=== PATIENT | female | born 1945 | race Caucasian/White ===

== ENCOUNTER → 2016-07-10 | Day surgery (SDC) | payer MEDICARE, BC ==
[~2016-07-10] MED LIST: ATOR40TA59 PO; BYSTOLIC5 MG PO; CRESTOR10 MG PO; DIAZ5TAB4 PO; FENTANYL PF 100 MCG/2 ML VIAL. IV PRN; HYDR-971 PO; IBUP200C9 PO; IV RINGERS,LACTATED 1000ML 1,000 ML IV SCH; LEVO75TA PO; LIDOCAINE 1% 1 ML SYRINGE. ID PRN; LIDOCAINE 2% PF Vial for OR 5 ML VIAL. ONE; METO-313 PO; METO25TA4 PO; ONDANSETRON PF 4 MG/2 ML VIAL. IV PRN; PANT40TA5 PO; PROCHLORPERAZINE 10 MG/2 ML VIAL. IV PRN; PROPOFOL 0 ML IV ONE; PROPOFOL 20 ML IV ONE; VENL75CA6 PO
[2016-07-10 09:41] VITALS: BP 125/79
--- NOTE | 2016-07-13 15:56 | PATHOLOGY ---
PATHOLOGY REPORT * * * * * * * * FINAL DIAGNOSIS: Colon biopsies, anastomosis stricture/mass: - Polypoid segment of granulation tissue showing acute and chronic inflammation, and segments of colonic mucosa showing focal hyperplastic changes and mild acute inflammation. COMMENT: Sections of the anastomotic stricture/mass biopsy reveal segments of colonic mucosa and a polypoid segment of granulation tissue showing acute and chronic inflammation. The segments of colonic mucosa show focal hyperplastic changes, edema, and mild acute inflammation. There is no evidence of malignancy. (JPM:; d/t: 07/13/16) REPORT ELECTRONICALLY SIGNED BY: Dave Pfeiffer M.D. DATE/TIME: 07/13/2016 15:34 * * * * * * * * GROSS PATHOLOGY: Received in formalin labeled "Lena Kelley and anastomotic stricture mass bx," are 6 segments of wheeler soft tissue measuring 1.4 x 0.3 x 0.2 and cm in aggregate dimensions and ranging from 0.2 to 0.5 cm in maximum dimension. The specimen is submitted entirely in cassette A1. (TTL; 07/10/2016) INITIAL CPT CODE(S): A; 61565 Professional services performed [place] [facility] [place] [address] Technical services performed by [facility] at [address] [place] [address], [facility] [address], [place] [address]. SPECIMEN(S) RECEIVED: A.Anastomotic stricture/mass biopsy CLINICAL HISTORY: Colon cancer PATIENT: LENA KELLEY /AGE: 9 1945 (Age: 71) PATIENT #: [id number] ALT CASE #: SPECIMEN COLLECTION DATE: 07/10/2016 SPECIMEN RECEIVED DATE: 07/10/2016 [facility] - [address] [place] [address] - PHONE: [phone] * * * END OF REPORT * * *
== END | disposition home or self-care (01) ==
LOC: ENDOS 07:56
PROVIDERS: ATTEND Internal Medicine Gastroenterology
DX: Z12.11 Encounter for screening for malignant neoplasm of colon (principal); K64.0 First degree hemorrhoids; Z98.0 Intestinal bypass and anastomosis status; Z85.038 Personal history of other malignant neoplasm of large intestine; K91.89 Other postprocedural complications and disorders of digestive system; R56.9 Unspecified convulsions; E78.00 Pure hypercholesterolemia, unspecified; I10 Essential (primary) hypertension; E66.9 Obesity, unspecified; K21.9 Gastro-esophageal reflux disease without esophagitis; Z90.721 Acquired absence of ovaries, unilateral; E03.9 Hypothyroidism, unspecified; F41.9 Anxiety disorder, unspecified; F32.9 Major depressive disorder, single episode, unspecified; F10.99 Alcohol use, unspecified with unspecified alcohol-induced disorder
CPT/HCPCS: 45380; 88305; J2704

== ENCOUNTER 2016-10-19 05:56 | Day surgery (SDC) | payer MEDICARE, BC ==
[~2016-10-19] VITALS: Ht 154.9 cm; Wt 71.4 kg
[~2016-10-19 05:56] MED LIST changes: -FENTANYL PF 100 MCG/2 ML VIAL. IV PRN; -IV RINGERS,LACTATED 1000ML 1,000 ML IV SCH; -LIDOCAINE 1% 1 ML SYRINGE. ID PRN; -LIDOCAINE 2% PF Vial for OR 5 ML VIAL. ONE; -ONDANSETRON PF 4 MG/2 ML VIAL. IV PRN; -PROCHLORPERAZINE 10 MG/2 ML VIAL. IV PRN; -PROPOFOL 0 ML IV ONE; -PROPOFOL 20 ML IV ONE
[2016-10-19] MEDS ORDERED: CEFAZOLIN 2GM PREMIX 50 ML IV PRN (06:00)
[2016-10-19] MEDS ORDERED: ACETAMINOPHEN INTRAVENOUS 100 ML IV ONE ×2 (06:16→07:00)
[2016-10-19] MEDS ORDERED: ONDANSETRON PF 4 MG/2 ML VIAL. ONE (06:56)
[2016-10-19] MEDS ORDERED: PROPOFOL 20 ML IV ONE (06:56)
[2016-10-19] MEDS ORDERED: LIDOCAINE 2% 100 MG/5 ML SYRINGE. ONE (06:56)
[2016-10-19] MEDS ORDERED: FENTANYL PF 100 MCG/2 ML VIAL. IV PRN ×3 (07:00→10:15)
[2016-10-19] MEDS ORDERED: LIDOCAINE 1% 1 ML SYRINGE. ID PRN (07:00)
[2016-10-19] MEDS ORDERED: MIDAZOLAM HCL/PF 2 MG/2 ML VIAL. IV PRN (07:00)
[2016-10-19] MEDS ORDERED: IV RINGERS,LACTATED 1000ML 1,000 ML IV SCH (07:00)
[2016-10-19] MEDS ORDERED: FENTANYL PF 100 MCG/2 ML VIAL. ONE (07:11)
[2016-10-19] MEDS ORDERED: DEXAMETHASONE SOD PHOS 20 MG/5 ML VIAL. ONE (07:17)
[2016-10-19] MEDS ORDERED: DESFLURANE 61 TO 120 MINUTES IH ONE (07:17)
[2016-10-19] MEDS ORDERED: HEPARIN for IV BOLUS 10,000 UNIT/10 ML VIAL. ONE (07:18)
[2016-10-19] MEDS ORDERED: HEPARIN PF 500 UNIT/5 ML DISP.SYRIN. IV ONE (07:18)
[2016-10-19] MEDS ORDERED: BUPIVACAINE MPF 0.25% 30 ML VIAL. ONE (07:19)
--- NOTE | 2016-10-19 08:18 | PDOC ---
BRIEF OPERATIVE NOTE Date: Oct 19, 2016 Pre-Op Diagnosis Colon cancer Post-Op Diagnosis Same Procedure Performed Port-a-cath placement left subclavin Surgeon Addison Anesthesia Type: General Blood Loss 10ml Specimens Obtained None Complications None ERIC DORAN MD Oct 19, 2016 08:18
--- NOTE | 2016-10-19 08:19 | DISCH ---
DISCHARGE INSTRUCTIONS Condition on Discharge Condition on Discharge: Stable Activity After Discharge Activity Instructions for Disc: Activity as tolerated Other activity instructions: No lifting left arm above head for 1 week Diet after Discharge Diet after Discharge: Regular Wound Incision Care Other wound/incision instructi: May shower in 24 hours Contacting the after DC Call your doctor for: If your condition worsens Follow-Up Follow up with: Dr Doran in 2 weeks ERIC DORAN MD Oct 19, 2016 08:19
--- NOTE | 2016-10-19 08:44 | RAD ---
Portable chest, 10/19/2016: History: Postop Port-A-Cath insertion Comparison is made to a study from 10/08/2015. A left Port-A-Cath has been inserted extending into the superior vena cava. The heart size and pulmonary vascularity are normal. There is tortuosity of the thoracic aorta. There is mild discoid atelectasis in both lung bases. No pneumothorax or pleural fluid is evident. IMPRESSION: 1. The left Port-A-Cath extends into the superior vena cava. 2. Mild bibasilar discoid atelectasis.
[2016-10-19] MEDS ORDERED: HYDR-971 PO (08:47)
[2016-10-19] MEDS ORDERED: HYDROCODONE/APAP 5/325MG TABLET. PO PRN (09:00)
[2016-10-19 09:30] VITALS: BP 101/56
--- NOTE | 2016-10-19 13:25 | OP ---
DATE OF SURGERY: 10/19/2016 PREOPERATIVE DIAGNOSIS: Metastatic colon cancer. POSTOPERATIVE DIAGNOSIS: Metastatic colon cancer. PROCEDURE: Left-sided Port-A-Cath placement. SURGEON: Bear Doran M.D. INDICATIONS: The patient is a 71-year-old female who is going to undergo chemotherapy technician terminal and repeater for metastatic colon cancer. Procedure of Port-A-Cath placement was explained to the patient in detail. Risks and benefits were also discussed including bleeding, infection, injury to pleura causing pneumothorax. Alternatives of this procedure were also discussed with the patient who seemed to understand and gave verbal and written consent to have the procedure performed. DESCRIPTION OF PROCEDURE: The patient was taken to the operating room and placed in the supine position. General anesthesia was initiated. Once the patient was asleep and intubated, her chest and neck were prepped and draped in sterile fashion using ChloraPrep. An area in the deltopectoral groove was injected with 0.25% Marcaine. An incision was made with 10 blade scalpel, was carried down through the subcutaneous tissue using electrocautery for hemostasis down to the deltopectoral groove. This was explored. The cephalic vein was not visualized. At this point, the subclavian was accessed with ____ needle and a Seldinger wire was placed through this needle and the needle was removed. Under fluoroscopy showed the wire transversed into the superior vena cava at the atrial junction. At this point, a peel-away dilator was placed over the wire under direct visualization. The dilator and wire removed. The catheter was placed through the peel-away. The peel-away was then removed and the port was placed on the end of the catheter. Fluoroscopy was used showed that the tip of the catheter was at the confluence of the atrium and the superior vena cava. The port was then sewn into place with 3-0 Prolene single interrupted sutures. The port was accessed with Diaz needle. There was good blood return and was easily flushed with heparin saline solution. The wound was then closed in two layers, deep layer with running 3-0 Vicryl and the skin was reapproximated with 4-0 subcuticular Monocryl. The port was then accessed, again with Diaz needle and flushed with 3 mL of 1000 per unit of heparin per mL as a hep-lock. Mastisol, Steri-Strips and island dressing were applied. The patient was awakened, extubated in the operating room, taken to recovery in stable condition. All sponge, instrument counts listed as correct. Estimated blood loss 10 mL. BEAR DORAN MD DR: VÍCTOR/dione JOB#: [id number] / [id number] DANIEL Perez MD
== END 2016-10-19 09:48 | disposition home or self-care (01) ==
LOC: SURG 05:56
PROVIDERS: ATTEND Surgery
DX: C78.5 Secondary malignant neoplasm of large intestine and rectum (principal); E78.00 Pure hypercholesterolemia, unspecified; I10 Essential (primary) hypertension; E66.9 Obesity, unspecified; K21.9 Gastro-esophageal reflux disease without esophagitis; F41.9 Anxiety disorder, unspecified; F32.9 Major depressive disorder, single episode, unspecified; E03.9 Hypothyroidism, unspecified; Z90.710 Acquired absence of both cervix and uterus; Z72.89 Other problems related to lifestyle
CPT/HCPCS: 36561; 71010; A4215; J0131; J0690; J1100; J2405; J2704; J3010; J3490; 36556

== ENCOUNTER 2016-12-05 14:34 | Emergency (ER) | payer MEDICARE, BC ==
[~2016-12-05] VITALS: Ht 154.9 cm; Wt 71.2 kg
[2016-12-05 14:58] VITALS: BP 139/74
[2016-12-05] MEDS ORDERED: BACITRACIN TOPICAL OINT 14GM TUBE. TP ONE (15:15)
--- NOTE | 2016-12-05 16:17 | ED.ADGEN ---
Past Medical History Past Medical History: Anxiety, Cancer, GERD, High Cholesterol, Hypothyroid Past Surgical History: Cancer Surgery, Colectomy, Tonsillectomy Drug Use: None Adult General Chief Complaint Chief Complaint: OTHER COMPLAINTS HPI HPI Patient is a 71 year old who presents with concern for a abdominal wall incision infection. Patient is status post hysterectomy, colectomy with colostomy placement at [facility] 3 months ago with delayed incisional breakdown and concern for infection. Patient has a less than 2 cm area of superficial ulcer or skin infection over scar. There is no clear drainage that is no appreciated surrounding erythema induration or drainage. She was prescribed Augmentin for this I or general surgeon, but she is been unable to take due to nausea which she only experiences when taking the medication. She does not have any other acute symptoms or complaints. Review of Systems Review of Systems ROS as per HPI. Current Medications Current Medications Current Medications Medications (Trade) Dose Ordered Sig/Fannie Start Time Stop Time Status Last Admin Dose Admin Bacitracin 1 slime 1X ONCE 12/05/16 15:15 12/05/16 15:16 DC 12/05/16 15:24 1 SLIME Allergies Allergies Allergies Coded Allergies Type Severity Reaction Last Updated Verified codeine Adverse Reaction Intermediate Patient states hallucinations 10/19/16 Yes Physical Exam Physical Exam Constitutional: Well developed, well nourished, no acute distress, non-toxic appearance. HENT: Normocephalic, atraumatic, bilateral external ears normal, oropharynx moist, no oral exudates, nose normal. Eyes: PERRLA, EOMI, conjunctiva normal. Neck: Normal range of motion, no tenderness, supple, no stridor. Cardiovascular:Heart rate regular rhythm, no murmur. Lungs & Thorax: Bilateral breath sounds clear to auscultation. Abdomen: Bowel sounds normal, soft, midline surgical scar with small 2 cm area of incision breakdown clear drainage, no surrounding erythema, duration or drainage. Skin: Warm, dry, no erythema, no rash. Back: No tenderness. Extremities: No tenderness. Neurologic: Alert and oriented X 3, normal motor function, normal sensory function, no focal deficits noted. Psychologic: Affect normal, judgement normal, mood normal. Current Patient Data Vital Signs Vital Signs Date Time Temp Pulse Resp B/P (MAP) Pulse Ox O2 Delivery O2 Flow Rate FiO2 12/05/16 14:58 97.0 69 18 139/74 (95) 97 Room Air 97.0 EKG EKG [] Radiology/Procedures Radiology/Procedures [] Course & Med Decision Making Course & Med Decision Making Pertinent Labs and Imaging studies reviewed. (See chart for details) [Patient reassured. Will discontinue Augmentin and prescribed topical antibiotics with instructions to apply as directed and to follow-up with general surgeon in one week for reevaluation or sooner if symptoms worsen. Return precautions reviewed.] Dragon Disclaimer Dragon Disclaimer This electronic medical record was generated, in whole or in part, using a voice recognition dictation system. JOSEY BARNETT DO Dec 05, 2016 16:17
== END 2016-12-05 16:21 | disposition home or self-care (01) ==
LOC: ER 14:34
DX: T81.4XXA Infection following a procedure, initial encounter (principal); F41.9 Anxiety disorder, unspecified; K21.9 Gastro-esophageal reflux disease without esophagitis; E78.00 Pure hypercholesterolemia, unspecified; E03.9 Hypothyroidism, unspecified; Z90.710 Acquired absence of both cervix and uterus; Z88.5 Allergy status to narcotic agent; Z90.49 Acquired absence of other specified parts of digestive tract; Y83.8 Other surgical procedures as the cause of abnormal reaction of the patient, or of later complication, without mention of misadventure at the time of the procedure; Y92.89 Other specified places as the place of occurrence of the external cause
CPT/HCPCS: 99283

== ENCOUNTER 2017-05-05 16:48 | Inpatient (IN) | payer MEDICARE, BC ==
[~2017-05-05] VITALS: Ht 154.9 cm; Wt 67.1 kg
[~2017-05-05 16:48] MED LIST changes: +MAGNESIUM SULFATE PREMIX 1 GM/100 ML BAG. IV ONE
[2017-05-05] MEDS ORDERED: ONDA4TAB11 PO (17:50)
[2017-05-05] MEDS ORDERED: LEVO500T8 PO (17:50)
[2017-05-05] MEDS ORDERED: TRAM50TA PO (17:50)
[2017-05-05] MEDS ORDERED: VANCOMYCIN 1.75 GM in IV DEXTROSE 5% 500 ML IV ONE (18:30)
[2017-05-05 18:37] LABS: BASO % 1 % (0-3); EOS % 0 % (0-3); HEMATOCRIT 39.5 % (36.0-47.0); HEMOGLOBIN 13.2 g/dL (12.0-15.5); LYMPH # 0.8 x10^3/uL (1.0-4.8); LYMPH % 24 % (24-48); MEAN CORPUSCULAR HEMOGLOBIN 33 pg (25-35); MEAN CORPUSCULAR HGB CONC 33 g/dL (31-37); MEAN CORPUSCULAR VOLUME 99 fL (79-100); MONO % 11 % (0-9); NEUT % 65 % (31-73); PLATELET COUNT 40 x10^3/uL (140-400); RED CELL DISTRIBUTION WIDTH 21.1 % (11.5-14.5); WHITE BLOOD COUNT 3.2 x10^3/uL (4.0-11.0)
[2017-05-05 18:38] VITALS: BP 120/83
[2017-05-05 18:46] LABS: ALBUMIN 3.3 g/dL (3.4-5.0); ALBUMIN/GLOBULIN RATIO 0.7 (1.0-1.7); CALCIUM 8.8 mg/dL (8.5-10.1); CREATININE 1.7 mg/dL (0.6-1.0); GFR 29.4; POTASSIUM 3.6 mmol/L (3.5-5.1); TOTAL BILIRUBIN 0.6 mg/dL (0.2-1.0); TOTAL PROTEIN 8.2 g/dL (6.4-8.2)
[2017-05-05 19:00] VITALS: BP 136/90
[2017-05-05] MEDS: cefTRIAXone IV Push 1 GM VIAL. IVP SCH (19:20)
[2017-05-05] MEDS: IV NORMAL SALINE 1000ML BAG 1,000 ML IV SCH (19:21)
[2017-05-05] MEDS: VANCOMYCIN PER PHARMACY MC PRN (19:31)
[2017-05-05 20:21] LABS: ANISOCYTOSIS MOD; OVALOCYTES FEW; PLT ESTIMATE DECREASED (ADEQUATE)
[2017-05-05] MEDS: diazePAM 5 MG TABLET PO SCH (20:58)
[2017-05-05] MEDS: METOPROLOL TART IMMED RELEASE 25 MG TABLET. PO SCH (20:59)
[2017-05-05 21:26] VITALS: BP 136/90
[2017-05-05 23:00] VITALS: BP 136/85
[2017-05-06 00:51] LABS: BILIRUBIN,URINE NEGATIVE (NEG); GLUCOSE,URINE NEGATIVE (NEG); NITRITE,URINE NEGATIVE (NEG); PROTEIN,URINE 100 mg/dL (NEG-TRACE); UROBILINOGEN,URINE 0.2 mg/dL (0.2 mg/dL)
[2017-05-06 00:56] LABS: BACTERIA,URINE FEW /HPF (0-FEW); RBC,URINE OCC /HPF (0-2); SQUAMOUS EPITHELIAL CELL,UR MOD /LPF; WBC,URINE 20-40 /HPF (0-4)
[2017-05-06 03:06] VITALS: BP 123/77
[2017-05-06 07:30] VITALS: BP 113/75
[2017-05-06] MEDS: LEVOTHYROXINE 75 MCG TABLET PO SCH (07:46)
--- NOTE | 2017-05-06 07:55 | RAD ---
Portable AP upright view CXR: Clinical indications: Bronchitis. Shortness of air. Comparison: October 19, 2016. Findings: A left subclavian Port-A-Cath is unchanged in position. No acute lung infiltrate or pleural effusion or pulmonary edema or lung mass or pneumothorax is seen. The heart size, pulmonary vasculature, mediastinum and both joy are unremarkable. Impression: No acute radiographic abnormality is seen.
--- NOTE | 2017-05-06 08:50 | PDOC ---
GENERAL General: vss and afebrile. awake and alert and looks better than yesterday. ongoing cough with clear cxr. leukopenia and thrombocytopenia from chemo. probable uti on ua results and little burning with urination yesterday. still profoundly weak. chest clear, heart regular, and abdomen benign. herpetic eruption upper lip and acyclovir added. will ask for pulmonary, oncology, and ID help. Problems: VITAL SIGNS Vital Signs: Vital Signs Date Time Temp Pulse Resp B/P (MAP) Pulse Ox O2 Delivery O2 Flow Rate FiO2 05/06/17 07:30 96.9 63 18 113/75 (88) 95 Room Air 96.9 ALLERGIES Allergies: Allergies Coded Allergies Type Severity Reaction Last Updated Verified codeine Adverse Reaction Intermediate Patient states hallucinations 10/19/16 Yes MEDS Medications: Current Medications Medications (Trade) Dose Ordered Sig/Fannie Start Time Stop Time Status Last Admin Dose Admin Atorvastatin Calcium (Lipitor) 40 mg DAILY 05/06/17 09:00 Ceftriaxone Sodium 1 gm/ Dextrose 50 ml @ 100 mls/hr Q24H 05/05/17 18:00 UNV Ceftriaxone Sodium (Rocephin) 1 gm Q24H 05/05/17 18:00 05/05/17 19:20 1 GM Diazepam (Valium) 5 mg TID 05/05/17 21:00 05/05/17 20:58 5 MG Levothyroxine Sodium (Synthroid) 75 mcg DAILYAC 05/06/17 07:30 05/06/17 07:46 75 MCG Metoprolol Tartrate (Lopressor) 25 mg BID 05/05/17 21:00 05/05/17 20:59 25 MG Ondansetron HCl (Zofran Odt) 8 mg PRN Q12HRS PRN 05/05/17 18:30 Pantoprazole Sodium (Protonix) 40 mg DAILY 05/06/17 09:00 Sodium Chloride 1,000 ml @ 75 mls/hr [id number] 05/05/17 18:15 05/05/17 19:21 75 MLS/HR Tramadol HCl (Ultram) 50 mg PRN Q6HRS PRN 05/05/17 18:15 Vancomycin HCl 1 each 1X ONCE 05/07/17 19:00 05/07/17 19:01 Vancomycin HCl (Vanco Per Pharmacy) 1 each PRN DAILY PRN 05/05/17 18:00 05/05/17 19:31 1 EACH Vancomycin HCl 1.75 gm/Dextrose 500 ml @ 250 mls/hr 1X ONCE 05/05/17 18:30 05/05/17 20:29 DC 05/05/17 19:21 250 MLS/HR Vancomycin HCl 1 gm/Dextrose 250 ml @ 250 mls/hr Q24H 05/06/17 19:30 Venlafaxine HCl (Effexor Xr) 75 mg DAILY 05/06/17 09:00 LAB Lab: Laboratory Tests Test 05/05/17 18:22 05/06/17 00:40 White Blood Count 3.2 x10^3/uL (4.0-11.0) Red Blood Count 4.00 x10^6/uL (3.50-5.40) Hemoglobin 13.2 g/dL (12.0-15.5) Hematocrit 39.5 % (36.0-47.0) Mean Corpuscular Volume 99 fL (79-100) Mean Corpuscular Hemoglobin 33 pg (25-35) Mean Corpuscular Hemoglobin Concent 33 g/dL (31-37) Red Cell Distribution Width 21.1 % (11.5-14.5) Platelet Count 40 x10^3/uL (140-400) Neutrophils (%) (Auto) 65 % (31-73) Lymphocytes (%) (Auto) 24 % (24-48) Monocytes (%) (Auto) 11 % (0-9) Eosinophils (%) (Auto) 0 % (0-3) Basophils (%) (Auto) 1 % (0-3) Neutrophils # (Auto) 2.0 x10^3uL (1.8-7.7) Lymphocytes # (Auto) 0.8 x10^3/uL (1.0-4.8) Monocytes # (Auto) 0.3 x10^3/uL (0.0-1.1) Eosinophils # (Auto) 0.0 x10^3/uL (0.0-0.7) Basophils # (Auto) 0.0 x10^3/uL (0.0-0.2) Platelet Estimate Decreased (ADEQUATE) Anisocytosis Mod Ovalocytes Few Sodium Level 133 mmol/L (136-145) Potassium Level 3.6 mmol/L (3.5-5.1) Chloride Level 97 mmol/L (98-107) Carbon Dioxide Level 23 mmol/L (21-32) Anion Gap 13 (6-14) Blood Urea Nitrogen 46 mg/dL (7-20) Creatinine 1.7 mg/dL (0.6-1.0) Estimated GFR (Cockcroft-Gault) 29.4 BUN/Creatinine Ratio 27 (6-20) Glucose Level 121 mg/dL (70-99) Calcium Level 8.8 mg/dL (8.5-10.1) Total Bilirubin 0.6 mg/dL (0.2-1.0) Aspartate Amino Transf (AST/SGOT) 31 U/L (15-37) Alanine Aminotransferase (ALT/SGPT) 15 U/L (14-59) Alkaline Phosphatase 88 U/L (46-116) Total Protein 8.2 g/dL (6.4-8.2) Albumin 3.3 g/dL (3.4-5.0) Albumin/Globulin Ratio 0.7 (1.0-1.7) Urine Collection Type Unknown Urine Color Yellow Urine Clarity Clear Urine pH 6.0 Urine Specific [place] 1.025 Urine Protein 100 mg/dL (NEG-TRACE) Urine Glucose (UA) Negative mg/dL (NEG) Urine Ketones (Stick) Negative mg/dL (NEG) Urine Blood Negative (NEG) Urine Nitrite Negative (NEG) Urine Bilirubin Negative (NEG) Urine Urobilinogen Dipstick 0.2 mg/dL (0.2 mg/dL) Urine Leukocyte Esterase Moderate (NEG) Urine RBC Occ /HPF (0-2) Urine WBC 20-40 /HPF (0-4) Urine Squamous Epithelial Cells Mod /LPF Urine Amorphous Sediment Present /HPF Urine Bacteria Few /HPF (0-FEW) Urine Hyaline Casts Moderate /HPF Urine Granular Casts Few /HPF Urine Mucus Mod /LPF ZACK LOPEZ MD May 06, 2017 08:50
[2017-05-06] MEDS: ACYCLOVIR 200 MG CAPSULE. PO SCH ×3 (09:51→21:06)
[2017-05-06] MEDS: PANTOPRAZOLE 40 MG TABLET.DR. PO SCH (09:52)
[2017-05-06] MEDS: METOPROLOL TART IMMED RELEASE 25 MG TABLET. PO SCH ×2 (09:52→21:07)
[2017-05-06] MEDS: VENLAFAXINE XR 37.5 MG CAP.ER.24H. PO SCH (09:52)
[2017-05-06] MEDS: diazePAM 5 MG TABLET PO SCH ×3 (09:52→21:06)
[2017-05-06] MEDS: ATORVASTATIN CALCIUM 40 MG TABLET. PO SCH (09:52)
[2017-05-06 10:30] VITALS: BP 118/68
[2017-05-06] MEDS: IV NORMAL SALINE 1000ML BAG 1,000 ML IV SCH ×2 (12:34→21:09)
[2017-05-06] MEDS: VANCOMYCIN PER PHARMACY MC PRN (12:53)
--- NOTE | 2017-05-06 13:22 | PDOC ---
Provider Note Provider Note pt seen consult dictated [id number] IMP: UTI TANNER Mucositis colon ca on ct Neutropenia and thrombocytopenia bronchitis REC: DC IV Vanc continue empiric rocephin start doxycycline po continue acyclovir oral care f/u c/s and labs PAT JOHN MD May 06, 2017 13:22
[2017-05-06] MEDS: DOXYCYCLINE HYCLATE 100 MG TABLET PO SCH ×2 (14:15→21:06)
[2017-05-06 15:00] VITALS: BP 118/68
--- NOTE | 2017-05-06 18:11 | PDOC ---
PULMONARY PROGRESS NOTES Vitals Vital Signs Date Time Temp Pulse Resp B/P (MAP) Pulse Ox O2 Delivery O2 Flow Rate FiO2 05/06/17 15:00 96.6 60 60 118/68 (85) 94 Room Air 96.6 Labs Laboratory Tests Test 05/05/17 18:22 05/06/17 00:40 White Blood Count 3.2 x10^3/uL (4.0-11.0) Red Blood Count 4.00 x10^6/uL (3.50-5.40) Hemoglobin 13.2 g/dL (12.0-15.5) Hematocrit 39.5 % (36.0-47.0) Mean Corpuscular Volume 99 fL (79-100) Mean Corpuscular Hemoglobin 33 pg (25-35) Mean Corpuscular Hemoglobin Concent 33 g/dL (31-37) Red Cell Distribution Width 21.1 % (11.5-14.5) Platelet Count 40 x10^3/uL (140-400) Neutrophils (%) (Auto) 65 % (31-73) Lymphocytes (%) (Auto) 24 % (24-48) Monocytes (%) (Auto) 11 % (0-9) Eosinophils (%) (Auto) 0 % (0-3) Basophils (%) (Auto) 1 % (0-3) Neutrophils # (Auto) 2.0 x10^3uL (1.8-7.7) Lymphocytes # (Auto) 0.8 x10^3/uL (1.0-4.8) Monocytes # (Auto) 0.3 x10^3/uL (0.0-1.1) Eosinophils # (Auto) 0.0 x10^3/uL (0.0-0.7) Basophils # (Auto) 0.0 x10^3/uL (0.0-0.2) Platelet Estimate Decreased (ADEQUATE) Anisocytosis Mod Ovalocytes Few Sodium Level 133 mmol/L (136-145) Potassium Level 3.6 mmol/L (3.5-5.1) Chloride Level 97 mmol/L (98-107) Carbon Dioxide Level 23 mmol/L (21-32) Anion Gap 13 (6-14) Blood Urea Nitrogen 46 mg/dL (7-20) Creatinine 1.7 mg/dL (0.6-1.0) Estimated GFR (Cockcroft-Gault) 29.4 BUN/Creatinine Ratio 27 (6-20) Glucose Level 121 mg/dL (70-99) Calcium Level 8.8 mg/dL (8.5-10.1) Total Bilirubin 0.6 mg/dL (0.2-1.0) Aspartate Amino Transf (AST/SGOT) 31 U/L (15-37) Alanine Aminotransferase (ALT/SGPT) 15 U/L (14-59) Alkaline Phosphatase 88 U/L (46-116) Total Protein 8.2 g/dL (6.4-8.2) Albumin 3.3 g/dL (3.4-5.0) Albumin/Globulin Ratio 0.7 (1.0-1.7) Urine Collection Type Unknown Urine Color Yellow Urine Clarity Clear Urine pH 6.0 Urine Specific [place] 1.025 Urine Protein 100 mg/dL (NEG-TRACE) Urine Glucose (UA) Negative mg/dL (NEG) Urine Ketones (Stick) Negative mg/dL (NEG) Urine Blood Negative (NEG) Urine Nitrite Negative (NEG) Urine Bilirubin Negative (NEG) Urine Urobilinogen Dipstick 0.2 mg/dL (0.2 mg/dL) Urine Leukocyte Esterase Moderate (NEG) Urine RBC Occ /HPF (0-2) Urine WBC 20-40 /HPF (0-4) Urine Squamous Epithelial Cells Mod /LPF Urine Amorphous Sediment Present /HPF Urine Bacteria Few /HPF (0-FEW) Urine Hyaline Casts Moderate /HPF Urine Granular Casts Few /HPF Urine Mucus Mod /LPF Laboratory Tests Test 05/05/17 18:22 05/06/17 00:40 White Blood Count 3.2 x10^3/uL (4.0-11.0) Red Blood Count 4.00 x10^6/uL (3.50-5.40) Hemoglobin 13.2 g/dL (12.0-15.5) Hematocrit 39.5 % (36.0-47.0) Mean Corpuscular Volume 99 fL (79-100) Mean Corpuscular Hemoglobin 33 pg (25-35) Mean Corpuscular Hemoglobin Concent 33 g/dL (31-37) Red Cell Distribution Width 21.1 % (11.5-14.5) Platelet Count 40 x10^3/uL (140-400) Neutrophils (%) (Auto) 65 % (31-73) Lymphocytes (%) (Auto) 24 % (24-48) Monocytes (%) (Auto) 11 % (0-9) Eosinophils (%) (Auto) 0 % (0-3) Basophils (%) (Auto) 1 % (0-3) Neutrophils # (Auto) 2.0 x10^3uL (1.8-7.7) Lymphocytes # (Auto) 0.8 x10^3/uL (1.0-4.8) Monocytes # (Auto) 0.3 x10^3/uL (0.0-1.1) Eosinophils # (Auto) 0.0 x10^3/uL (0.0-0.7) Basophils # (Auto) 0.0 x10^3/uL (0.0-0.2) Platelet Estimate Decreased (ADEQUATE) Anisocytosis Mod Ovalocytes Few Sodium Level 133 mmol/L (136-145) Potassium Level 3.6 mmol/L (3.5-5.1) Chloride Level 97 mmol/L (98-107) Carbon Dioxide Level 23 mmol/L (21-32) Anion Gap 13 (6-14) Blood Urea Nitrogen 46 mg/dL (7-20) Creatinine 1.7 mg/dL (0.6-1.0) Estimated GFR (Cockcroft-Gault) 29.4 BUN/Creatinine Ratio 27 (6-20) Glucose Level 121 mg/dL (70-99) Calcium Level 8.8 mg/dL (8.5-10.1) Total Bilirubin 0.6 mg/dL (0.2-1.0) Aspartate Amino Transf (AST/SGOT) 31 U/L (15-37) Alanine Aminotransferase (ALT/SGPT) 15 U/L (14-59) Alkaline Phosphatase 88 U/L (46-116) Total Protein 8.2 g/dL (6.4-8.2) Albumin 3.3 g/dL (3.4-5.0) Albumin/Globulin Ratio 0.7 (1.0-1.7) Urine Collection Type Unknown Urine Color Yellow Urine Clarity Clear Urine pH 6.0 Urine Specific [place] 1.025 Urine Protein 100 mg/dL (NEG-TRACE) Urine Glucose (UA) Negative mg/dL (NEG) Urine Ketones (Stick) Negative mg/dL (NEG) Urine Blood Negative (NEG) Urine Nitrite Negative (NEG) Urine Bilirubin Negative (NEG) Urine Urobilinogen Dipstick 0.2 mg/dL (0.2 mg/dL) Urine Leukocyte Esterase Moderate (NEG) Urine RBC Occ /HPF (0-2) Urine WBC 20-40 /HPF (0-4) Urine Squamous Epithelial Cells Mod /LPF Urine Amorphous Sediment Present /HPF Urine Bacteria Few /HPF (0-FEW) Urine Hyaline Casts Moderate /HPF Urine Granular Casts Few /HPF Urine Mucus Mod /LPF Medications Active Scripts Medications Dose Route/Sig Max Daily Dose Days Date Category Levofloxacin 500 Mg Tablet 500 Mg PO DAILY 05/05/17 Reported Tramadol Hcl 50 Mg Tablet 50 Mg PO Q6H PRN 05/05/17 Reported Ondansetron Hcl 4 Mg Tablet 8 Mg PO BID PRN 05/05/17 Reported Thornton 5-325 Tablet (Acetaminophen/Hydrocodone Bitart) 1 Each Tablet 1-2 Tab PO Q4HRS PRN 10/19/16 Reported Atorvastatin Calcium 40 Mg Tablet 1 Tab PO DAILY 10/18/15 Reported Metoprolol Tartrate 25 Mg Tablet 1 Tab PO BID 10/18/15 Reported Pantoprazole Sodium 40 Mg Tablet.dr 1 Tab PO DAILY 04/26/15 Reported Diazepam 5 Mg Tablet 5 Mg PO TID 03/07/15 Reported Venlafaxine Hcl Er (Venlafaxine Hcl) 75 Mg Cap.er.24h 75 Mg PO DAILY 03/07/15 Reported Synthroid (Levothyroxine Sodium) 75 Mcg Tablet 75 Mcg PO DAILYAC 03/07/15 Reported Impression . CLINICAL PNEUMONIA COLON CA ACUTE BRONCHITIS PLAN AGREE WITH CURRENT RX JEFF FISCHER MD May 06, 2017 18:11
[2017-05-06] MEDS: cefTRIAXone IV Push 1 GM VIAL. IVP SCH (18:12)
[2017-05-06 19:00] VITALS: BP 102/99
[2017-05-06] MEDS ORDERED: VANCOMYCIN 1 GM in IV DEXTROSE 5% 250 ML IV SCH (19:30)
[2017-05-06] MEDS: ONDANSETRON ODT 4 MG TAB.RAPDIS. PO PRN (22:40)
[2017-05-06 22:49] VITALS: BP 113/69
[2017-05-07] VITALS (7 sets, daily range): BP systolic 104–128; BP diastolic 58–75
--- NOTE | 2017-05-07 01:18 | CONS ---
DATE OF CONSULTATION: 05/06/2017 REFERRING PHYSICIAN: Dr. Abebe Aldridge REASON FOR CONSULTATION: Weakness, bronchitis/pna HISTORY OF PRESENT ILLNESS: A 72-year-old female with history of colon cancer, on chemotherapy with leukopenia and thrombocytopenia from chemo, admitted with complaints of weakness, dysuria, not feeling well, oral sores, difficulty swallowing, low grade fever and chills, sob and cough. The patient was started on empriic IV vancomycin and Rocephin. White count was 3.2 with hemoglobin of 13.2 and platelets of 40. Creatinine is up at 1.7. UA showed leukocyte esterase positive, moderate with a 20-40 WBC. The patient underwent chest x-ray, which showed no infiltrate. ROS as above has trouble swallowing,oral sores, heent as above resp as above cardiac neg gi as above,no n/v/d/abdo pain gu as above derm no gen rash neuro neg PAST MEDICAL HISTORY: 1. Colon cancer, status post surgery, on ostomy, on chemo since 10/2016. 2. Neutropenia from above. 3. Thrombocytopenia from above. 4. Hyperlipidemia. 5. Hypothyroidism, on supplements. 6. Hypertension. 7. GERD. 8. Chronic pain. PAST SURGICAL HISTORY: Status post colon surgery. ALLERGIES: CODEINE. CURRENT MEDICATIONS: Antibiotics, IV vancomycin, IV ceftriaxone, p.o. acyclovir. Inpatient medications reviewed. SOCIAL HISTORY: Denies smoking, EtOH, or illicit drug use. REVIEW OF SYSTEMS: As above, otherwise negative. PHYSICAL EXAMINATION: VITAL SIGNS: Temperature 96.3, pulse 74, respiratory rate 18, blood pressure 136/90, oxygen saturation 97% on room air. GENERAL: Alert, oriented x 3 female, cooperative, in no acute distress. HEENT: Cold sore lower lips, dry scab present. Oral mucosa is dry. Anicteric. Normocephalic, atraumatic. No oral exudate noted. NECK: Supple. No JVD. LUNGS: Decreased breath sound at the bases. HEART: S1, S2 present. ABDOMEN: Soft. Ostomy bag draining liquid green stool. No changes per patient. No masses, nontender. EXTREMITIES: No edema, no cyanosis. DERMATOLOGIC: No generalized rash. LINE: Port-A-Cath in site. No changes. MUSCULOSKELETAL: No joint effusion or erythema noted. NEUROLOGIC: Nonfocal, grossly alert, oriented x 3. PSYCHIATRIC: Appropriate mood and affect. LABORATORY DATA: WBC 3.2, hemoglobin 13.2, hematocrit 39.5, platelets 40, mono 11, neutrophils 65. Chemistry: Sodium 133, potassium 3.5, chloride 97, bicarb 23, BUN 46, creatinine 1.7, glucose 121, calcium 8.8, total bilirubin 0.8, AST 31, ALT 15, alkaline phosphatase 88, total protein 8.2, albumin 3.3, albumin globulin ratio 0.7. UA shows wbc's at 20-40, leukocyte esterase moderate, rbc occasional. IMAGING: chest x-ray Impression: No acute radiographic abnormality seen. Micro: None. IMPRESSION: 1. Fever, chills prior to admit 2.bronchitis possible early pneumonia 3. Pyruia and dysuria 4.Mucositis 5.dysphagia 6. History of colon cancer, status post surgery and recently on chemotherapy. 7. Neutropenia and thrombocytopenia from chemo. 8. Oral mucositis. 9. Renal insufficiency. 10. Hyperlipidemia. 11. Hypertension. 12. Degenerative joint disease. 13. Hypothyroidism. RECOMMENDATIONS: 1. Continue empiric Rocephin and doxycycline 2. continue acyclovir 3. Follow up culture and susceptibility results. 4. Obtain blood culture if temperature greater than 101. 5.. Continue oral care. Thank you Dr Baca for consulting ID.Please contact or page with any questions [email or web address]
[2017-05-07] MEDS: LEVOTHYROXINE 75 MCG TABLET PO SCH (07:11)
--- NOTE | 2017-05-07 08:18 | PDOC ---
GENERAL General: vss and afebrile. definitely feeling better. still very weak and will get therapy to eval. chest clear and heart regular. abdomen benign and mouth about same. mobilize as tolerated and continue present antibiotics and recheck labs in am. Problems: VITAL SIGNS Vital Signs: Vital Signs Date Time Temp Pulse Resp B/P (MAP) Pulse Ox O2 Delivery O2 Flow Rate FiO2 05/07/17 07:00 97.9 58 17 128/75 (92) 96 Room Air 97.9 ALLERGIES Allergies: Allergies Coded Allergies Type Severity Reaction Last Updated Verified codeine Adverse Reaction Intermediate Patient states hallucinations 10/19/16 Yes MEDS Medications: Current Medications Medications (Trade) Dose Ordered Sig/Fannie Start Time Stop Time Status Last Admin Dose Admin Acyclovir (Zovirax) 400 mg [id number] 05/06/17 09:00 05/06/17 21:06 400 MG Atorvastatin Calcium (Lipitor) 40 mg DAILY 05/06/17 09:00 05/06/17 09:52 40 MG Ceftriaxone Sodium 1 gm/ Dextrose 50 ml @ 100 mls/hr Q24H 05/05/17 18:00 UNV Ceftriaxone Sodium (Rocephin) 1 gm Q24H 05/05/17 18:00 05/06/17 18:12 1 GM Diazepam (Valium) 5 mg TID 05/05/17 21:00 05/06/17 21:06 5 MG Doxycycline Hyclate (Vibra-Tab) 100 mg BID 05/06/17 14:00 05/06/17 21:06 100 MG Levothyroxine Sodium (Synthroid) 75 mcg DAILYAC 05/06/17 07:30 05/07/17 07:11 75 MCG Metoprolol Tartrate (Lopressor) 25 mg BID 05/05/17 21:00 05/06/17 21:07 25 MG Ondansetron HCl (Zofran Odt) 8 mg PRN Q12HRS PRN 05/05/17 18:30 05/06/17 22:40 8 MG Pantoprazole Sodium (Protonix) 40 mg DAILY 05/06/17 09:00 05/06/17 09:52 40 MG Sodium Chloride 1,000 ml @ 75 mls/hr [id number] 05/05/17 18:15 05/06/17 21:09 75 MLS/HR Tramadol HCl (Ultram) 50 mg PRN Q6HRS PRN 05/05/17 18:15 Vancomycin HCl 1 each 1X ONCE 05/07/17 19:00 05/07/17 19:01 Cancel Vancomycin HCl (Vanco Per Pharmacy) 1 each PRN DAILY PRN 05/05/17 18:00 05/06/17 13:10 DC 05/06/17 12:53 1 EACH Vancomycin HCl 1.75 gm/Dextrose 500 ml @ 250 mls/hr 1X ONCE 05/05/17 18:30 05/05/17 20:29 DC 05/05/17 19:21 250 MLS/HR Vancomycin HCl 1 gm/Dextrose 250 ml @ 250 mls/hr Q24H 05/06/17 19:30 05/06/17 19:30 DC Venlafaxine HCl (Effexor Xr) 75 mg DAILY 05/06/17 09:00 05/06/17 09:52 75 MG ZACK LOPEZ MD May 07, 2017 08:18
[2017-05-07] MEDS: METOPROLOL TART IMMED RELEASE 25 MG TABLET. PO SCH ×2 (09:00→20:49)
--- NOTE | 2017-05-07 09:01 | PDOC ---
PROGRESS NOTES Subjective Subjective HPI - Colon ca -s/p chemo 04/27/17. Admitted with toxicities. ROS - has pain from mucositis Objective Objective Vital Signs Date Time Temp Pulse Resp B/P (MAP) Pulse Ox O2 Delivery O2 Flow Rate FiO2 05/07/17 08:00 Room Air 05/07/17 07:00 97.9 58 17 128/75 (92) 96 97.9 Physical Exam Heart: Normal S1, Normal S2 General: Alert, Oriented X3, No acute distress Lungs: Clear to auscultation Neuro: Normal speech Psych/Mental Status: Mental status NL Assessment Assessment 1. Colon ca -s/p chemo 04/27/17. Admitted with toxicities. 2. Urinary tract infection. Appreciate ID management. 3. Neutropenia and thrombocytopenia from chemo. Monitor cbc prn 4. Oral mucositis. Ordered magic mouthwash Comment Review of Relevant I have reviewed the following items armida (where applicable) has been applied. Labs Laboratory Tests Test 05/05/17 18:22 05/06/17 00:40 White Blood Count 3.2 x10^3/uL (4.0-11.0) Red Blood Count 4.00 x10^6/uL (3.50-5.40) Hemoglobin 13.2 g/dL (12.0-15.5) Hematocrit 39.5 % (36.0-47.0) Mean Corpuscular Volume 99 fL (79-100) Mean Corpuscular Hemoglobin 33 pg (25-35) Mean Corpuscular Hemoglobin Concent 33 g/dL (31-37) Red Cell Distribution Width 21.1 % (11.5-14.5) Platelet Count 40 x10^3/uL (140-400) Neutrophils (%) (Auto) 65 % (31-73) Lymphocytes (%) (Auto) 24 % (24-48) Monocytes (%) (Auto) 11 % (0-9) Eosinophils (%) (Auto) 0 % (0-3) Basophils (%) (Auto) 1 % (0-3) Neutrophils # (Auto) 2.0 x10^3uL (1.8-7.7) Lymphocytes # (Auto) 0.8 x10^3/uL (1.0-4.8) Monocytes # (Auto) 0.3 x10^3/uL (0.0-1.1) Eosinophils # (Auto) 0.0 x10^3/uL (0.0-0.7) Basophils # (Auto) 0.0 x10^3/uL (0.0-0.2) Platelet Estimate Decreased (ADEQUATE) Anisocytosis Mod Ovalocytes Few Sodium Level 133 mmol/L (136-145) Potassium Level 3.6 mmol/L (3.5-5.1) Chloride Level 97 mmol/L (98-107) Carbon Dioxide Level 23 mmol/L (21-32) Anion Gap 13 (6-14) Blood Urea Nitrogen 46 mg/dL (7-20) Creatinine 1.7 mg/dL (0.6-1.0) Estimated GFR (Cockcroft-Gault) 29.4 BUN/Creatinine Ratio 27 (6-20) Glucose Level 121 mg/dL (70-99) Calcium Level 8.8 mg/dL (8.5-10.1) Total Bilirubin 0.6 mg/dL (0.2-1.0) Aspartate Amino Transf (AST/SGOT) 31 U/L (15-37) Alanine Aminotransferase (ALT/SGPT) 15 U/L (14-59) Alkaline Phosphatase 88 U/L (46-116) Total Protein 8.2 g/dL (6.4-8.2) Albumin 3.3 g/dL (3.4-5.0) Albumin/Globulin Ratio 0.7 (1.0-1.7) Urine Collection Type Unknown Urine Color Yellow Urine Clarity Clear Urine pH 6.0 Urine Specific [place] 1.025 Urine Protein 100 mg/dL (NEG-TRACE) Urine Glucose (UA) Negative mg/dL (NEG) Urine Ketones (Stick) Negative mg/dL (NEG) Urine Blood Negative (NEG) Urine Nitrite Negative (NEG) Urine Bilirubin Negative (NEG) Urine Urobilinogen Dipstick 0.2 mg/dL (0.2 mg/dL) Urine Leukocyte Esterase Moderate (NEG) Urine RBC Occ /HPF (0-2) Urine WBC 20-40 /HPF (0-4) Urine Squamous Epithelial Cells Mod /LPF Urine Amorphous Sediment Present /HPF Urine Bacteria Few /HPF (0-FEW) Urine Hyaline Casts Moderate /HPF Urine Granular Casts Few /HPF Urine Mucus Mod /LPF Medications Current Medications Ceftriaxone Sodium 1 gm/ Dextrose 50 ml @ 100 mls/hr Q24H IV ; Start 05/05/17 at 18:00; Status UNV Vancomycin HCl (Vanco Per Pharmacy) 1 each PRN DAILY PRN MC SEE COMMENTS Last administered on 05/06/17 12:53; Start 05/05/17 at 18:00; Stop 05/06/17 at 13:10 ; Status DC Ceftriaxone Sodium (Rocephin) 1 gm Q24H IVP Last administered on 05/06/17 18: 12; Start 05/05/17 at 18:00 Sodium Chloride 1,000 ml @ 75 mls/hr [id number] IV Last administered on 21:09; Start 05/05/17 at 18:15 Atorvastatin Calcium (Lipitor) 40 mg DAILY PO Last administered on 05/06/17 09 :52; Start 05/06/17 at 09:00 Diazepam (Valium) 5 mg TID PO Last administered on 05/06/17 21:06; Start 05/05 at 21:00 Levothyroxine Sodium (Synthroid) 75 mcg DAILYAC PO Last administered on 07:11; Start 05/06/17 at 07:30 Metoprolol Tartrate (Lopressor) 25 mg BID PO Last administered on 05/06/17 21: 07; Start 05/05/17 at 21:00 Pantoprazole Sodium (Protonix) 40 mg DAILY PO Last administered on 05/06/17 09 :52; Start 05/06/17 at 09:00 Tramadol HCl (Ultram) 50 mg PRN Q6HRS PRN PO PAIN; Start 05/05/17 at 18:15 Ondansetron HCl (Zofran Odt) 8 mg PRN Q12HRS PRN PO NAUSEA/VOMITING Last administered on 05/06/17 22:40; Start 05/05/17 at 18:30 Venlafaxine HCl (Effexor Xr) 75 mg DAILY PO Last administered on 05/06/17 09: 52; Start 05/06/17 at 09:00 Vancomycin HCl 1.75 gm/Dextrose 500 ml @ 250 mls/hr 1X ONCE IV Last administered on 05/05/17 19:21; Start 05/05/17 at 18:30; Stop 05/05/17 at 20:29 ; Status DC Vancomycin HCl 1 gm/Dextrose 250 ml @ 250 mls/hr Q24H IV ; Start 05/06/17 at 19 :30; Stop 05/06/17 at 19:30; Status DC Vancomycin HCl 1 each 1X ONCE MC ; Start 05/07/17 at 19:00; Stop 05/07/17 at 19:01; Status Cancel Acyclovir (Zovirax) 400 mg [id number] PO Last administered on 05/06/17 21:06; Start 05/06/17 at 09:00 Doxycycline Hyclate (Vibra-Tab) 100 mg BID PO Last administered on 05/06/17 21 :06; Start 05/06/17 at 14:00 Active Scripts Active Reported Levofloxacin 500 Mg Tablet 500 Mg PO DAILY Tramadol Hcl 50 Mg Tablet 50 Mg PO Q6H PRN Ondansetron Hcl 4 Mg Tablet 8 Mg PO BID PRN Ferriday 5-325 Tablet (Acetaminophen/Hydrocodone Bitart) 1 Each Tablet 1-2 Tab PO Q4HRS PRN Atorvastatin Calcium 40 Mg Tablet 1 Tab PO DAILY Metoprolol Tartrate 25 Mg Tablet 1 Tab PO BID Pantoprazole Sodium 40 Mg Tablet.dr 1 Tab PO DAILY Diazepam 5 Mg Tablet 5 Mg PO TID Venlafaxine Hcl Er (Venlafaxine Hcl) 75 Mg Cap.er.24h 75 Mg PO DAILY Synthroid (Levothyroxine Sodium) 75 Mcg Tablet 75 Mcg PO DAILYAC Vitals/I & O Vital Sign - Last 24 Hours 05/06/17 05/06/17 05/06/17 05/06/17 09:52 10:30 15:00 19:00 Temp 97.5 96.6 98.1 97.5 96.6 98.1 Pulse 63 63 60 66 Resp 18 60 17 B/P (MAP) 113/75 118/68 (85) 118/68 (85) 102/99 (100) Pulse Ox 94 94 97 O2 Delivery Room Air Room Air Room Air 05/06/17 05/06/17 05/06/17 05/07/17 20:00 21:07 22:49 03:00 Temp 97.6 97.9 97.6 97.9 Pulse 60 66 57 Resp 18 B/P (MAP) 118/68 113/69 (84) 104/58 (73) Pulse Ox 94 94 O2 Delivery Room Air Room Air Room Air 05/07/17 05/07/17 05/07/17 04:31 07:00 08:00 Temp 97.9 97.9 97.9 97.9 Pulse 57 58 Resp 17 17 B/P (MAP) 104/58 (73) 128/75 (92) Pulse Ox 94 96 O2 Delivery Room Air Room Air Room Air DANIEL MORALEZ MD May 07, 2017 09:01
[2017-05-07] MEDS: ACYCLOVIR 200 MG CAPSULE. PO SCH ×3 (09:19→20:48)
[2017-05-07] MEDS: diazePAM 5 MG TABLET PO SCH ×3 (09:20→20:48)
[2017-05-07] MEDS: DOXYCYCLINE HYCLATE 100 MG TABLET PO SCH ×2 (09:20→20:48)
[2017-05-07] MEDS: ATORVASTATIN CALCIUM 40 MG TABLET. PO SCH (09:20)
[2017-05-07] MEDS: VENLAFAXINE XR 37.5 MG CAP.ER.24H. PO SCH (09:20)
[2017-05-07] MEDS: PANTOPRAZOLE 40 MG TABLET.DR. PO SCH (09:24)
[2017-05-07] MEDS: LIDO:MAALOX:BENADRYL 1:1:1 180 ML BOTTLE. PO PRN (09:25)
--- NOTE | 2017-05-07 09:25 | HP ---
ADMIT DATE: CHIEF COMPLAINT AND HISTORY OF PRESENT ILLNESS: This 72-year-old white female is well known to me from followup in the office. The patient was seen in the office the day prior to admission with cough, generalized weakness, troubles getting off the chair during activities of daily living. She is undergoing chemotherapy for carcinoma of the colon. She was started on Levaquin, was not improved by the day of admission and admitted for IV antibiotics and found to have urinary tract infection on admission in addition. PAST MEDICAL HISTORY: Remarkable for colon cancer. She does have a colostomy. She has a history of hypothyroidism, hypertension, GERD, hyperlipidemia. She currently has neutropenia and thrombocytopenia from the chemotherapy on admission. PAST SURGICAL HISTORY: Remarkable for the colon surgery. ALLERGIES: Include CODEINE. CURRENT MEDICATIONS: Brought with the patient, listed on the med rec and have been addressed. SOCIAL HISTORY: She is a nonsmoker, does drink a couple of beers occasionally, does not use drugs, has a son that lives at home with her. FAMILY HISTORY: Noncontributory. REVIEW OF SYSTEMS: As mentioned above. PHYSICAL EXAMINATION: GENERAL: She is well-developed, well-nourished white female who appears ill with a slightly elevated respiratory rate at 20. HEAD, EYES, EARS, NOSE AND THROAT: Unremarkable except for cold sore in lower lips present. NECK: Supple without bruit, thyromegaly. CHEST: Clear to auscultation and percussion. HEART: Regular rate and rhythm without S3, S4, or murmur. ABDOMEN: Soft, nontender, without hepatosplenomegaly or masses. She does have a functioning colostomy. EXTREMITIES: Without cyanosis, clubbing or edema. NEUROLOGIC: She is intact. LABORATORY DATA: Initial white count is 3200, platelet count is 40,000. BUN and creatinine are elevated at 46 and 1.7 consistent with some acute kidney disease as well as probably some dehydration. Urinalysis shows 20-40 white blood cells and leukocyte esterase positive. IMPRESSION: Profound weakness with respiratory infection, no evidence of urinary tract infection in patient who is immunocompromised from chemotherapy with multiple other problems listed above. PLAN: The patient has been admitted. She has been started on antivirals, antibiotics, IV hydration. ID and Respiratory will be asked to follow along and the patient will be monitored, managed and treated appropriately. ZACK LOPEZ MD DR: Ene JOB#: [id number] / [id number]
--- NOTE | 2017-05-07 09:32 | CONS ---
DATE OF CONSULTATION: 05/06/2017 REQUESTING PHYSICIAN: Dr. Zack Aldridge REASON FOR CONSULTATION: Colon cancer, on chemotherapy. HISTORY OF PRESENT ILLNESS: The patient is a 72-year-old female who was seen at [facility] on 03/06/2015 for abdominal pain and constipation. She underwent a colonoscopy on 03/07/2015 that revealed obstructive distal sigmoid colon mass. She underwent exploratory laparotomy and sigmoid colon resection on 03/08/2015 and the pathology revealed invasive moderately differentiated adenocarcinoma of the colon staged as a [id number], stage 2B colon cancer. She decided not to pursue with chemotherapy at that time. Her surveillance labs on 05/27/2016 revealed that the CEA level was elevated at 14.9. She underwent a CT scan on 06/04/2016 that revealed a 6.5-cm pelvic mass. She underwent cytoreductive surgery and hyperthermic intraperitoneal chemotherapy at [facility] on 09/11/2016. This revealed a 3.5-cm recurrent colonic adenocarcinoma, moderately differentiated involving the serosa of the colon. There was evidence of metastatic adenocarcinoma noted on the peritoneum, ovary, and the fallopian tube. She received adjuvant FOLFOX starting from 10/27/2016 and cycle #11 was given on 04/27/2017. She is now admitted with significant weakness, urinary tract infection, mucositis. She has been started on acyclovir for herpetic eruption in the upper lip. Her CBC revealed a WBC of 3.2 and a platelet of 40,000 on 05/05/2017 and hence, I was consulted. PAST MEDICAL HISTORY: Hypertension, hyperlipidemia. SOCIAL HISTORY: No smoking or alcohol abuse. FAMILY HISTORY: Negative for colon cancer. REVIEW OF SYSTEMS: A 12-point review of system was performed. Pertinent positives are mentioned in the history of present illness. Rest of the system review is negative. PHYSICAL EXAMINATION: GENERAL APPEARANCE: The patient is a 72-year-old female, who is in no acute cardiorespiratory distress. VITAL SIGNS: Blood pressure 118/68, temperature 97.5. HEAD: Atraumatic, normocephalic. EYES: No icterus. NECK: Supple. CHEST: Bilaterally symmetrical. No crepitations or rhonchi heard. HEART: S1, S2 normal. ABDOMEN: Soft, nontender. CENTRAL NERVOUS SYSTEM: No focal deficits. LYMPHATICS: No lymphadenopathy. SKIN: No rashes. PSYCHOLOGIC: Mood and affect are appropriate. MUSCULOSKELETAL: No joint effusions. LABORATORY DATA: WBC 3.2, hemoglobin 13.2, platelet count 40,000. IMPRESSION AND PLAN: 1. Stage 4 colon cancer. She was initially diagnosed with a stage 2B colon cancer on 03/07/2015 with evidence of recurrent disease on 06/04/2016 status post exploratory laparotomy cytoreductive surgery and hyperthermic intraperitoneal chemotherapy. She had evidence of a 3.5-cm recurrent lesion in the serosa of the colon along with metastatic deposits in the peritoneum, ovary and the fallopian tube. KRAS mutation was positive. She was started on adjuvant chemotherapy with FOLFOX on 10/27/2016 and she completed cycle #11 on 04/27/2017. She is now admitted with profound weakness, leukopenia and thrombocytopenia due to chemotherapy. She also has evidence of acute renal failure with a creatinine of 1.7. I agreed to proceed with aggressive supportive care. I have advised her to follow up with me in about 1 week to evaluate if she would be ready enough for the 12th cycle of treatment. 2. Leukopenia due to chemotherapy. Continue to monitor. Absolute neutrophil count is 2.0. 3. Thrombocytopenia due to chemotherapy. Continue to monitor. No signs of bleeding. 4. Acute renal failure with a creatinine of 1.7 due to dehydration. Management per Dr. Baca. 5. Urinary tract infection. Appreciate ID consultation. The patient is on antibiotics. DANIEL MORALEZ MD DR: CUATE/nts JOB#: [id number] / [id number] ZACK Pedersen MD [facility]
--- NOTE | 2017-05-07 11:39 | PDOC ---
Infectious Disease Note Subjective Subjective pt is feeling a little better though continues to have difficulty swallowing from pain, sob and cough improved, dysuria resolving, no abdo pain no diarrhea ROS ROS as above Vital Sign Vital Signs Vital Signs Date Time Temp Pulse Resp B/P (MAP) Pulse Ox O2 Delivery O2 Flow Rate FiO2 05/07/17 10:36 97.5 55 17 118/65 (82) 98 Room Air 97.5 Physical Exam PHYSICAL EXAM GENERAL: Alert, oriented x 3 female, cooperative, in no acute distress. HEENT: Cold sore lower lips, dry scab present. Oral mucosa is dry. Anicteric. NECK: Supple. No JVD. LUNGS: Clear bilaterally. Decreased breath sound at the bases. HEART: S1, S2 present. ABDOMEN: Soft. Ostomy bag draining liquid green stool. No changes per patient. No masses, nontender. EXTREMITIES: No edema, no cyanosis. DERMATOLOGIC: No generalized rash. LINE: Port-A-Cath in site. No changes. MUSCULOSKELETAL: No joint effusion or erythema noted. NEUROLOGIC: Nonfocal, grossly alert, oriented x 3. PSYCHIATRIC: Appropriate mood and affect. Labs Lab noted Micro bc ngtd uc ngtd Objective Assessment 1. Fever, chills prior to admit 2.bronchitis possible early pneumonia 3. Pyruia and dysuria 4.Mucositis 5.dysphagia 6. History of colon cancer, status post surgery and recently on chemotherapy. 7. Neutropenia and thrombocytopenia from chemo. 8. Oral mucositis. 9. Renal insufficiency. 10. Hyperlipidemia. 11. Hypertension. 12. Degenerative joint disease. 13. Hypothyroidism. Plan Plan of Care 1. Continue empiric Rocephin and doxycycline 2. continue acyclovir 3.will add empiric nystatin noah and edu 4.pulm and oncology following 3. Follow up culture and susceptibility results. 4. Obtain blood culture if temperature greater than 101. 5.. Continue oral care. PAT JOHN MD May 07, 2017 11:39
[2017-05-07] MEDS: NYSTATIN 100,000 UNITS/ML 5 ML ORAL.SUSP. SWSW SCH ×3 (14:56→20:49)
[2017-05-07] MEDS: IV NORMAL SALINE 1000ML BAG 1,000 ML IV SCH (14:58)
--- NOTE | 2017-05-07 16:09 | PDOC ---
PULMONARY PROGRESS NOTES Subjective PT LESS SOA WEAK Vitals Vital Signs Date Time Temp Pulse Resp B/P (MAP) Pulse Ox O2 Delivery O2 Flow Rate FiO2 05/07/17 14:38 98.2 63 16 113/59 (77) 93 Room Air 98.2 ROS: No Nausea, No Chest Pain, No Abdominal Pain, No Increase Cough Lungs: Crackles Cardiovascular: S1, S2 Abdomen: Soft Neuro Exam: Alert Extremities: No Edema Skin: Warm Labs Laboratory Tests Test 05/05/17 18:22 05/06/17 00:40 White Blood Count 3.2 x10^3/uL (4.0-11.0) Red Blood Count 4.00 x10^6/uL (3.50-5.40) Hemoglobin 13.2 g/dL (12.0-15.5) Hematocrit 39.5 % (36.0-47.0) Mean Corpuscular Volume 99 fL (79-100) Mean Corpuscular Hemoglobin 33 pg (25-35) Mean Corpuscular Hemoglobin Concent 33 g/dL (31-37) Red Cell Distribution Width 21.1 % (11.5-14.5) Platelet Count 40 x10^3/uL (140-400) Neutrophils (%) (Auto) 65 % (31-73) Lymphocytes (%) (Auto) 24 % (24-48) Monocytes (%) (Auto) 11 % (0-9) Eosinophils (%) (Auto) 0 % (0-3) Basophils (%) (Auto) 1 % (0-3) Neutrophils # (Auto) 2.0 x10^3uL (1.8-7.7) Lymphocytes # (Auto) 0.8 x10^3/uL (1.0-4.8) Monocytes # (Auto) 0.3 x10^3/uL (0.0-1.1) Eosinophils # (Auto) 0.0 x10^3/uL (0.0-0.7) Basophils # (Auto) 0.0 x10^3/uL (0.0-0.2) Platelet Estimate Decreased (ADEQUATE) Anisocytosis Mod Ovalocytes Few Sodium Level 133 mmol/L (136-145) Potassium Level 3.6 mmol/L (3.5-5.1) Chloride Level 97 mmol/L (98-107) Carbon Dioxide Level 23 mmol/L (21-32) Anion Gap 13 (6-14) Blood Urea Nitrogen 46 mg/dL (7-20) Creatinine 1.7 mg/dL (0.6-1.0) Estimated GFR (Cockcroft-Gault) 29.4 BUN/Creatinine Ratio 27 (6-20) Glucose Level 121 mg/dL (70-99) Calcium Level 8.8 mg/dL (8.5-10.1) Total Bilirubin 0.6 mg/dL (0.2-1.0) Aspartate Amino Transf (AST/SGOT) 31 U/L (15-37) Alanine Aminotransferase (ALT/SGPT) 15 U/L (14-59) Alkaline Phosphatase 88 U/L (46-116) Total Protein 8.2 g/dL (6.4-8.2) Albumin 3.3 g/dL (3.4-5.0) Albumin/Globulin Ratio 0.7 (1.0-1.7) Urine Collection Type Unknown Urine Color Yellow Urine Clarity Clear Urine pH 6.0 Urine Specific [place] 1.025 Urine Protein 100 mg/dL (NEG-TRACE) Urine Glucose (UA) Negative mg/dL (NEG) Urine Ketones (Stick) Negative mg/dL (NEG) Urine Blood Negative (NEG) Urine Nitrite Negative (NEG) Urine Bilirubin Negative (NEG) Urine Urobilinogen Dipstick 0.2 mg/dL (0.2 mg/dL) Urine Leukocyte Esterase Moderate (NEG) Urine RBC Occ /HPF (0-2) Urine WBC 20-40 /HPF (0-4) Urine Squamous Epithelial Cells Mod /LPF Urine Amorphous Sediment Present /HPF Urine Bacteria Few /HPF (0-FEW) Urine Hyaline Casts Moderate /HPF Urine Granular Casts Few /HPF Urine Mucus Mod /LPF Medications Active Scripts Medications Dose Route/Sig Max Daily Dose Days Date Category Levofloxacin 500 Mg Tablet 500 Mg PO DAILY 05/05/17 Reported Tramadol Hcl 50 Mg Tablet 50 Mg PO Q6H PRN 05/05/17 Reported Ondansetron Hcl 4 Mg Tablet 8 Mg PO BID PRN 05/05/17 Reported [place] 5-325 Tablet (Acetaminophen/Hydrocodone Bitart) 1 Each Tablet 1-2 Tab PO Q4HRS PRN 10/19/16 Reported Atorvastatin Calcium 40 Mg Tablet 1 Tab PO DAILY 10/18/15 Reported Metoprolol Tartrate 25 Mg Tablet 1 Tab PO BID 10/18/15 Reported Pantoprazole Sodium 40 Mg Tablet.dr 1 Tab PO DAILY 04/26/15 Reported Diazepam 5 Mg Tablet 5 Mg PO TID 03/07/15 Reported Venlafaxine Hcl Er (Venlafaxine Hcl) 75 Mg Cap.er.24h 75 Mg PO DAILY 03/07/15 Reported Synthroid (Levothyroxine Sodium) 75 Mcg Tablet 75 Mcg PO DAILYAC 03/07/15 Reported Impression . CLINICAL PNEUMONIA COLON CA ACUTE BRONCHITIS PLAN AGREE WITH CURRENT RX Plan . FULL NOTE DICTATED CONTINUE SUPPORT JEFF FISCHER MD May 07, 2017 16:09
[2017-05-07] MEDS: cefTRIAXone IV Push 1 GM VIAL. IVP SCH (17:47)
[2017-05-08] VITALS (16 sets, daily range): BP systolic 71–144; BP diastolic 44–66
[2017-05-08] MEDS: IV NORMAL SALINE 1000ML BAG 1,000 ML IV SCH (04:20)
--- NOTE | 2017-05-08 04:47 | CONS ---
DATE OF CONSULTATION: 05/06/2017 ATTENDING PHYSICIAN: Abebe Baca MD REASON FOR CONSULTATION: The patient seen in pulmonary consultation at the request of Dr. Baca for increasing shortness of breath. HISTORY OF PRESENT ILLNESS: The patient is a 72-year-old female with a history of colon cancer, last received chemo approximately 10 days ago. She was recently diagnosed with stage [id number] colon cancer. She started chemotherapy. The diagnosis is established back in 02/2015. She had recurrent disease in 05/2016. There was evidence of metastatic adenocarcinoma noted on the peritoneum, ovary and fallopian tube. She then received chemotherapy back in October, recently back on 04/27. She now presents with increasing shortness of breath, urinary tract infection and mucositis. She had a white count revealing WBC of 3.2. She had a chest x-ray, which I personally reviewed. The x-ray revealed no infiltrates. PAST MEDICAL HISTORY: Remarkable for colon cancer as described above, hypertension and hyperlipidemia. No history of tobacco use. PAST SURGICAL HISTORY: Status post colectomy in the past. ALLERGIES: CODEINE. CURRENT MEDICATION: List was reviewed. She was on antibiotics per ID. PHYSICAL EXAMINATION: VITAL SIGNS: Stable. O2 saturation on room air was 93%. HEENT: Eyes, the sclerae were nonicteric. NECK: Jugular venous distention was not elevated. No lymphadenopathy. CHEST: Full expansion. LUNGS: Bilateral rhonchi. No wheezes. CARDIOVASCULAR: Regular rate and rhythm with S1, S2, no S3. ABDOMEN: Soft, nontender and nondistended. EXTREMITIES: No clubbing, cyanosis or edema. NEUROLOGIC: The patient was awake, alert and following commands. A detailed neuro exam was not performed. LABORATORY DATA: Notable she had leukopenia with WBC of 3.2. Electrolytes were noted. BUN and creatinine was elevated. Albumin was low. IMPRESSION: 1. Progressive dyspnea, multifactorial secondary to weakness from her recent chemotherapy and toxicities. 2. Stage 4 ____ cancer. 3. Leukopenia secondary to chemotherapy. 4. Thrombocytopenia. 5. Acute renal failure, suspect vasomotor nephropathy. 6. Urinary tract infection. 7. Protein malnutrition present upon admission. PLAN: 1. Continue current support. 2. Antibiotics per ID. 3. DVT and GI prophylaxis. 4. Follow hematology input. Dr. Baca, I do appreciate the privilege in sharing in the patient's care. JEFF FISCHER MD DR: Naren JOB#: [id number] / [id number]
[2017-05-08 07:05] LABS: ALBUMIN 2.4 g/dL (3.4-5.0); ALBUMIN/GLOBULIN RATIO 0.7 (1.0-1.7); GFR 54.2; TOTAL BILIRUBIN 0.3 mg/dL (0.2-1.0); TOTAL PROTEIN 5.9 g/dL (6.4-8.2)
[2017-05-08] MEDS: NYSTATIN 100,000 UNITS/ML 5 ML ORAL.SUSP. SWSW SCH ×4 (08:22→21:00)
[2017-05-08] MEDS: diazePAM 5 MG TABLET PO SCH ×3 (08:22→21:06)
[2017-05-08] MEDS: DOXYCYCLINE HYCLATE 100 MG TABLET PO SCH ×2 (08:23→21:06)
[2017-05-08] MEDS: ATORVASTATIN CALCIUM 40 MG TABLET. PO SCH (08:23)
[2017-05-08] MEDS: ACYCLOVIR 200 MG CAPSULE. PO SCH ×3 (08:24→21:07)
[2017-05-08] MEDS: PANTOPRAZOLE 40 MG TABLET.DR. PO SCH (08:25)
[2017-05-08] MEDS: METOPROLOL TART IMMED RELEASE 25 MG TABLET. PO SCH ×2 (08:25→21:00)
[2017-05-08] MEDS: VENLAFAXINE XR 37.5 MG CAP.ER.24H. PO SCH (08:26)
[2017-05-08 08:31] LABS: BASO % 1 % (0-3); EOS % 2 % (0-3); HEMOGLOBIN 9.5 g/dL (12.0-15.5); LYMPH # 0.7 x10^3/uL (1.0-4.8); LYMPH % 43 % (24-48); MEAN CORPUSCULAR HEMOGLOBIN 34 pg (25-35); MEAN CORPUSCULAR HGB CONC 34 g/dL (31-37); MEAN CORPUSCULAR VOLUME 99 fL (79-100); MONO % 16 % (0-9); NEUT % 38 % (31-73); RED BLOOD COUNT 2.83 x10^6/uL (3.50-5.40); RED CELL DISTRIBUTION WIDTH 20.4 % (11.5-14.5)
[2017-05-08] MEDS: LEVOTHYROXINE 75 MCG TABLET PO SCH (10:09)
[2017-05-08] MEDS: LIDO:MAALOX:BENADRYL 1:1:1 180 ML BOTTLE. PO PRN (10:12)
[2017-05-08 10:39] LABS: PLATELET COUNT 18 x10^3/uL (140-400)
[2017-05-08 10:41] LABS: WHITE BLOOD COUNT 1.5 x10^3/uL (4.0-11.0)
--- NOTE | 2017-05-08 13:42 | PDOC ---
SUBJECTIVE Subjective food does not taste good, looks weak OBJECTIVE Vital Signs Vital Signs Date Time Temp Pulse Resp B/P (MAP) Pulse Ox O2 Delivery O2 Flow Rate FiO2 05/08/17 11:00 98.4 63 18 110/56 (74) 95 Room Air 98.4 05/08/17 08:25 62 118/63 05/08/17 08:00 Room Air 05/08/17 07:00 98.0 62 18 118/63 (81) 94 Room Air 98.0 05/08/17 04:37 98.4 54 18 110/55 (73) 94 Room Air 98.4 05/08/17 03:59 Room Air 05/07/17 23:46 98.0 52 18 105/59 (74) 94 Room Air 98.0 05/07/17 20:49 66 124/65 05/07/17 20:47 Room Air 05/07/17 19:25 97.4 66 18 124/65 (84) 97 Room Air 97.4 05/07/17 14:38 98.2 63 16 113/59 (77) 93 Room Air 98.2 I & O Intake and Output 05/09/17 07:00 Intake Total 60 ml Output Total 100 ml Balance -40 ml Intake Oral 60 ml Stool Total 100 ml # Voids 1 PHYSICAL EXAM Physical Exam mouth ulcers drying up and better lungs scattered ronchi heart RRR abd soft, mild diffuse tenderness ext no edema ASSESSMENT/PLAN Assessment/Plan 1.pneumonitis and Fever in immunocompromised pt continue ABx by ID 2.Mucositis improving 3.dysphagia 4. History of colon cancer, status post surgery and recently on chemotherapy. 5. Neutropenia and thrombocytopenia and anemia from chemo. 6. Renal insufficiency. 7. Hyperlipidemia. 8. Hypertension. 9. Degenerative joint disease. 10. Hypothyroidism. 11.Hypokalemia replacing 12. malnourished Problems: COMMENT Lab Laboratory Tests Test 05/08/17 06:30 05/08/17 08:17 Sodium Level 138 mmol/L (136-145) Potassium Level 3.0 mmol/L (3.5-5.1) Chloride Level 108 mmol/L (98-107) Carbon Dioxide Level 20 mmol/L (21-32) Anion Gap 10 (6-14) Blood Urea Nitrogen 16 mg/dL (7-20) Creatinine 1.0 mg/dL (0.6-1.0) Estimated GFR (Cockcroft-Gault) 54.2 BUN/Creatinine Ratio 16 (6-20) Glucose Level 84 mg/dL (70-99) Calcium Level 8.0 mg/dL (8.5-10.1) Total Bilirubin 0.3 mg/dL (0.2-1.0) Aspartate Amino Transf (AST/SGOT) 22 U/L (15-37) Alanine Aminotransferase (ALT/SGPT) 9 U/L (14-59) Alkaline Phosphatase 69 U/L (46-116) Total Protein 5.9 g/dL (6.4-8.2) Albumin 2.4 g/dL (3.4-5.0) Albumin/Globulin Ratio 0.7 (1.0-1.7) White Blood Count 1.5 x10^3/uL (4.0-11.0) Red Blood Count 2.83 x10^6/uL (3.50-5.40) Hemoglobin 9.5 g/dL (12.0-15.5) Hematocrit 28.0 % (36.0-47.0) Mean Corpuscular Volume 99 fL (79-100) Mean Corpuscular Hemoglobin 34 pg (25-35) Mean Corpuscular Hemoglobin Concent 34 g/dL (31-37) Red Cell Distribution Width 20.4 % (11.5-14.5) Platelet Count 18 x10^3/uL (140-400) Neutrophils (%) (Auto) 38 % (31-73) Lymphocytes (%) (Auto) 43 % (24-48) Monocytes (%) (Auto) 16 % (0-9) Eosinophils (%) (Auto) 2 % (0-3) Basophils (%) (Auto) 1 % (0-3) Neutrophils # (Auto) 0.6 x10^3uL (1.8-7.7) Lymphocytes # (Auto) 0.7 x10^3/uL (1.0-4.8) Monocytes # (Auto) 0.2 x10^3/uL (0.0-1.1) Eosinophils # (Auto) 0.0 x10^3/uL (0.0-0.7) Basophils # (Auto) 0.0 x10^3/uL (0.0-0.2) YAHAIRA ZARCO MD May 08, 2017 13:42
[2017-05-08 13:51] LABS: % BASOS 1 % (0-3); % EOS 1 % (0-5); PLT ESTIMATE DECREASED (ADEQUATE)
[2017-05-08 13:54] LABS: ANISOCYTOSIS MOD; OVALOCYTES FEW; POIKILOCYTOSIS SLIGHT; TEAR DROP CELLS FEW
--- NOTE | 2017-05-08 13:59 | PDOC ---
PULMONARY PROGRESS NOTES Subjective PT LESS SOA WEAK Vitals Vital Signs Date Time Temp Pulse Resp B/P (MAP) Pulse Ox O2 Delivery O2 Flow Rate FiO2 05/08/17 11:00 98.4 63 18 110/56 (74) 95 Room Air 98.4 ROS: No Nausea, No Chest Pain, No Abdominal Pain, No Increase Cough Lungs: Crackles Cardiovascular: S1, S2 Abdomen: Soft Neuro Exam: Alert Extremities: No Edema Skin: Warm Labs Laboratory Tests Test 05/08/17 06:30 05/08/17 08:17 Sodium Level 138 mmol/L (136-145) Potassium Level 3.0 mmol/L (3.5-5.1) Chloride Level 108 mmol/L (98-107) Carbon Dioxide Level 20 mmol/L (21-32) Anion Gap 10 (6-14) Blood Urea Nitrogen 16 mg/dL (7-20) Creatinine 1.0 mg/dL (0.6-1.0) Estimated GFR (Cockcroft-Gault) 54.2 BUN/Creatinine Ratio 16 (6-20) Glucose Level 84 mg/dL (70-99) Calcium Level 8.0 mg/dL (8.5-10.1) Total Bilirubin 0.3 mg/dL (0.2-1.0) Aspartate Amino Transf (AST/SGOT) 22 U/L (15-37) Alanine Aminotransferase (ALT/SGPT) 9 U/L (14-59) Alkaline Phosphatase 69 U/L (46-116) Total Protein 5.9 g/dL (6.4-8.2) Albumin 2.4 g/dL (3.4-5.0) Albumin/Globulin Ratio 0.7 (1.0-1.7) White Blood Count 1.5 x10^3/uL (4.0-11.0) Red Blood Count 2.83 x10^6/uL (3.50-5.40) Hemoglobin 9.5 g/dL (12.0-15.5) Hematocrit 28.0 % (36.0-47.0) Mean Corpuscular Volume 99 fL (79-100) Mean Corpuscular Hemoglobin 34 pg (25-35) Mean Corpuscular Hemoglobin Concent 34 g/dL (31-37) Red Cell Distribution Width 20.4 % (11.5-14.5) Platelet Count 18 x10^3/uL (140-400) Neutrophils (%) (Auto) 38 % (31-73) Lymphocytes (%) (Auto) 43 % (24-48) Monocytes (%) (Auto) 16 % (0-9) Eosinophils (%) (Auto) 2 % (0-3) Basophils (%) (Auto) 1 % (0-3) Neutrophils # (Auto) 0.6 x10^3uL (1.8-7.7) Lymphocytes # (Auto) 0.7 x10^3/uL (1.0-4.8) Monocytes # (Auto) 0.2 x10^3/uL (0.0-1.1) Eosinophils # (Auto) 0.0 x10^3/uL (0.0-0.7) Basophils # (Auto) 0.0 x10^3/uL (0.0-0.2) Segmented Neutrophils % 33 % (35-66) Band Neutrophils % 2 % (0-9) Lymphocytes % 48 % (24-48) Atypical Lymphocytes % (Manual) 1 % (0-0) Monocytes % 14 % (0-10) Eosinophils % 1 % (0-5) Basophils % 1 % (0-3) Platelet Estimate Decreased (ADEQUATE) Poikilocytosis Slight Anisocytosis Mod Tear Drop Cells Few Ovalocytes Few Laboratory Tests Test 05/08/17 06:30 05/08/17 08:17 Sodium Level 138 mmol/L (136-145) Potassium Level 3.0 mmol/L (3.5-5.1) Chloride Level 108 mmol/L (98-107) Carbon Dioxide Level 20 mmol/L (21-32) Anion Gap 10 (6-14) Blood Urea Nitrogen 16 mg/dL (7-20) Creatinine 1.0 mg/dL (0.6-1.0) Estimated GFR (Cockcroft-Gault) 54.2 BUN/Creatinine Ratio 16 (6-20) Glucose Level 84 mg/dL (70-99) Calcium Level 8.0 mg/dL (8.5-10.1) Total Bilirubin 0.3 mg/dL (0.2-1.0) Aspartate Amino Transf (AST/SGOT) 22 U/L (15-37) Alanine Aminotransferase (ALT/SGPT) 9 U/L (14-59) Alkaline Phosphatase 69 U/L (46-116) Total Protein 5.9 g/dL (6.4-8.2) Albumin 2.4 g/dL (3.4-5.0) Albumin/Globulin Ratio 0.7 (1.0-1.7) White Blood Count 1.5 x10^3/uL (4.0-11.0) Red Blood Count 2.83 x10^6/uL (3.50-5.40) Hemoglobin 9.5 g/dL (12.0-15.5) Hematocrit 28.0 % (36.0-47.0) Mean Corpuscular Volume 99 fL (79-100) Mean Corpuscular Hemoglobin 34 pg (25-35) Mean Corpuscular Hemoglobin Concent 34 g/dL (31-37) Red Cell Distribution Width 20.4 % (11.5-14.5) Platelet Count 18 x10^3/uL (140-400) Neutrophils (%) (Auto) 38 % (31-73) Lymphocytes (%) (Auto) 43 % (24-48) Monocytes (%) (Auto) 16 % (0-9) Eosinophils (%) (Auto) 2 % (0-3) Basophils (%) (Auto) 1 % (0-3) Neutrophils # (Auto) 0.6 x10^3uL (1.8-7.7) Lymphocytes # (Auto) 0.7 x10^3/uL (1.0-4.8) Monocytes # (Auto) 0.2 x10^3/uL (0.0-1.1) Eosinophils # (Auto) 0.0 x10^3/uL (0.0-0.7) Basophils # (Auto) 0.0 x10^3/uL (0.0-0.2) Segmented Neutrophils % 33 % (35-66) Band Neutrophils % 2 % (0-9) Lymphocytes % 48 % (24-48) Atypical Lymphocytes % (Manual) 1 % (0-0) Monocytes % 14 % (0-10) Eosinophils % 1 % (0-5) Basophils % 1 % (0-3) Platelet Estimate Decreased (ADEQUATE) Poikilocytosis Slight Anisocytosis Mod Tear Drop Cells Few Ovalocytes Few Medications Active Scripts Medications Dose Route/Sig Max Daily Dose Days Date Category Levofloxacin 500 Mg Tablet 500 Mg PO DAILY 05/05/17 Reported Tramadol Hcl 50 Mg Tablet 50 Mg PO Q6H PRN 05/05/17 Reported Ondansetron Hcl 4 Mg Tablet 8 Mg PO BID PRN 05/05/17 Reported Herndon 5-325 Tablet (Acetaminophen/Hydrocodone Bitart) 1 Each Tablet 1-2 Tab PO Q4HRS PRN 10/19/16 Reported Atorvastatin Calcium 40 Mg Tablet 1 Tab PO DAILY 10/18/15 Reported Metoprolol Tartrate 25 Mg Tablet 1 Tab PO BID 10/18/15 Reported Pantoprazole Sodium 40 Mg Tablet.dr 1 Tab PO DAILY 04/26/15 Reported Diazepam 5 Mg Tablet 5 Mg PO TID 03/07/15 Reported Venlafaxine Hcl Er (Venlafaxine Hcl) 75 Mg Cap.er.24h 75 Mg PO DAILY 03/07/15 Reported Synthroid (Levothyroxine Sodium) 75 Mcg Tablet 75 Mcg PO DAILYAC 03/07/15 Reported Impression . 1. Progressive dyspnea, multifactorial secondary to weakness from her recent chemotherapy and toxicities. 2. Stage 4 Colon cancer. 3. Leukopenia secondary to chemotherapy. 4. Thrombocytopenia. 5. Acute renal failure, suspect vasomotor nephropathy. 6. Urinary tract infection. 7. Protein malnutrition present upon admission. Plan . pt very weak today 1. Continue current support. 2. Antibiotics per ID. 3. DVT and GI prophylaxis. 4. Follow hematology input. JEFF FISCHER MD May 08, 2017 13:59
[2017-05-08] MEDS ORDERED: POTASSIUM CHLORIDE 20 MEQ TABLET.ER. PO ONE ×2 (14:00→17:00)
[2017-05-08] MEDS ORDERED: POTASSIUM CL 20MEQ D5-0.45NACL 1,000 ML IV SCH (14:00)
[2017-05-08] MEDS ORDERED: AMIODARONE 900 MG in IV DEXTROSE 5% 500 ML IV PRN ×4 (14:45)
[2017-05-08 14:50] LABS: HCO3 ABG 10 mmol/L (21-28); PCO2 ABG 23 mmHg (35-46); PH ABG 7.28 (7.35-7.45); PO2 ABG 61 mmHg (65-108); SAT O2 ABG 89 % (92-99)
[2017-05-08 14:51] LABS: FIO2 ABG 100
--- NOTE | 2017-05-08 15:05 | EKG ---
[facility] [address] [place] [address] Test Date: 2017-05-08 Test Time: 15:03:19 Pat Name: LENA KELLEY Department: Room: 106 1 Gender: F Contact Lens Blocker: : 1945 Requested By: NEO ASHRAF Order Number: [id number] Reading MD: Christian Garcia MD Measurements Intervals Wheeler Rate: 84 P: 7 [place]: 186 QRS: 30 QRSD: 72 T: 59 QT: 414 QTc: 493 Interpretive Statements SINUS RHYTHM Electronically Signed On 05-10-2017 9:59:29 WIG DRESSER by Christian Garcia MD
--- NOTE | 2017-05-08 15:09 | PDOC ---
Infectious Disease Note Subjective Subjective pt now in ICU, coded on floor with recurrent V tech, shocked multiple times and then amiodarone, now rhythm is good. Acidotic post code, but awake nodes appropriately ROS ROS no n/v/d/fever/cp Vital Sign Vital Signs Vital Signs Date Time Temp Pulse Resp B/P (MAP) Pulse Ox O2 Delivery O2 Flow Rate FiO2 05/08/17 11:00 98.4 63 18 110/56 (74) 95 Room Air 98.4 Physical Exam PHYSICAL EXAM GENERAL: NAD, Alert HEENT: PERRL, OC/OP NECK: Supple, no JVD, no LN LUNGS: Clear HEART: S1S2, no gallop, no murmur ABD: Soft, NT, no organomegaly, no rebound EXT: No edema, no cyanosis [employer]: Alert, oriented x 3, no focal neurologic deficit SKIN: No rash IV: ok Labs Lab Laboratory Tests Test 05/08/17 06:30 05/08/17 08:17 05/08/17 14:42 Sodium Level 138 mmol/L (136-145) Potassium Level 3.0 mmol/L (3.5-5.1) Chloride Level 108 mmol/L (98-107) Carbon Dioxide Level 20 mmol/L (21-32) Anion Gap 10 (6-14) Blood Urea Nitrogen 16 mg/dL (7-20) Creatinine 1.0 mg/dL (0.6-1.0) Estimated GFR (Cockcroft-Gault) 54.2 BUN/Creatinine Ratio 16 (6-20) Glucose Level 84 mg/dL (70-99) Calcium Level 8.0 mg/dL (8.5-10.1) Total Bilirubin 0.3 mg/dL (0.2-1.0) Aspartate Amino Transf (AST/SGOT) 22 U/L (15-37) Alanine Aminotransferase (ALT/SGPT) 9 U/L (14-59) Alkaline Phosphatase 69 U/L (46-116) Total Protein 5.9 g/dL (6.4-8.2) Albumin 2.4 g/dL (3.4-5.0) Albumin/Globulin Ratio 0.7 (1.0-1.7) White Blood Count 1.5 x10^3/uL (4.0-11.0) Red Blood Count 2.83 x10^6/uL (3.50-5.40) Hemoglobin 9.5 g/dL (12.0-15.5) Hematocrit 28.0 % (36.0-47.0) Mean Corpuscular Volume 99 fL (79-100) Mean Corpuscular Hemoglobin 34 pg (25-35) Mean Corpuscular Hemoglobin Concent 34 g/dL (31-37) Red Cell Distribution Width 20.4 % (11.5-14.5) Platelet Count 18 x10^3/uL (140-400) Neutrophils (%) (Auto) 38 % (31-73) Lymphocytes (%) (Auto) 43 % (24-48) Monocytes (%) (Auto) 16 % (0-9) Eosinophils (%) (Auto) 2 % (0-3) Basophils (%) (Auto) 1 % (0-3) Neutrophils # (Auto) 0.6 x10^3uL (1.8-7.7) Lymphocytes # (Auto) 0.7 x10^3/uL (1.0-4.8) Monocytes # (Auto) 0.2 x10^3/uL (0.0-1.1) Eosinophils # (Auto) 0.0 x10^3/uL (0.0-0.7) Basophils # (Auto) 0.0 x10^3/uL (0.0-0.2) Segmented Neutrophils % 33 % (35-66) Band Neutrophils % 2 % (0-9) Lymphocytes % 48 % (24-48) Atypical Lymphocytes % (Manual) 1 % (0-0) Monocytes % 14 % (0-10) Eosinophils % 1 % (0-5) Basophils % 1 % (0-3) Platelet Estimate Decreased (ADEQUATE) Poikilocytosis Slight Anisocytosis Mod Tear Drop Cells Few Ovalocytes Few O2 Saturation 89 % (92-99) Arterial Blood pH 7.28 (7.35-7.45) Arterial Blood pCO2 at Patient Temp 23 mmHg (35-46) Arterial Blood pO2 at Patient Temp 61 mmHg (65-108) Arterial Blood HCO3 10 mmol/L (21-28) Arterial Blood Base Excess -15 mmol/L (-3-3) FiO2 100 Objective Assessment 1. Fever, chills prior to admit 2.bronchitis possible early pneumonia 3. Pyruia and dysuria 4.Mucositis 5.dysphagia 6. History of colon cancer, status post surgery and recently on chemotherapy. 7. Neutropenia and thrombocytopenia from chemo. 8. Oral mucositis. 9. Renal insufficiency. 10. Hyperlipidemia. 11. Hypertension. 12. Degenerative joint disease. 13. Hypothyroidism. Recurrent V tech, coded, shocked and amio Plan Plan of Care 1. Continue Rocephin and doxycycline 2. continue acyclovir 3 supportive care 4.pulm and oncology following 3. Follow up culture and susceptibility results. d/w SAVAGE Miranda MD May 08, 2017 15:09
[2017-05-08 15:15] LABS: HEMATOCRIT 27.4 % (36.0-47.0); HEMOGLOBIN 9.3 g/dL (12.0-15.5); RED BLOOD COUNT 2.82 x10^6/uL (3.50-5.40)
--- NOTE | 2017-05-08 15:26 | PDOC5 ---
CODE REPORT CODE REPORT The patient was in 5 N. She became unresponsive and a code was called. CPR was initiated as well as bagging the patient. When I arrived in the room I started running the code and the patient was at that point in ventricular fibrillation. It shock was done following which CPR was resumed, the patient kept going to atrial fibrillation with a slow ventricular response and then would go in to V. tach with a rate in between 150 and 180 multiple times requiring multiple shocks. Medications were initiated. Following the bolus of amiodarone we were able to get the rhythm control and the patient's rhythm was atrial fibrillation with a ventricular response in between 40-60. Blood pressure was 103/58 at that point. Therefore the patient was transferred to the intensive care unit. On arrival to the ICU the patient's blood pressure appeared to be in the 60s and the rhythm was unchanged. A Levophed drip was initiated as well as an amiodarone drip and then to be able to monitor her closely E was decided to insert an arterial line and this was done with sterile technique into the left radial artery without difficulty. After the R line was secured and the patient had received in addition to the drips a bolus of IV fluid her blood pressure appeared to be stabilizing. Call was placed to the patient's attending. When I left the ICU the patient was alert, responsive, breathing on her own, intubation was not required since she maintain through the entire code spontaneous breathing. NEO ASHRAF MD May 08, 2017 15:26
[2017-05-08] MEDS ORDERED: SODIUM BICARB ADULT 8.4% 50 MEQ/50 ML DISP.SYRIN. IV ONE (15:30)
[2017-05-08] MEDS ORDERED: IV NORMAL SALINE 500ML BAG 500 ML IV ONE (15:30)
[2017-05-08 15:40] LABS: ALBUMIN/GLOBULIN RATIO 0.7 (1.0-1.7); CALCIUM 7.3 mg/dL (8.5-10.1); CREATININE 1.1 mg/dL (0.6-1.0); GFR 48.6; MAGNESIUM 2.1 mg/dL (1.8-2.4); TOTAL BILIRUBIN 0.4 mg/dL (0.2-1.0); TOTAL PROTEIN 4.9 g/dL (6.4-8.2)
[2017-05-08 15:43] LABS: POTASSIUM 2.5 mmol/L (3.5-5.1)
[2017-05-08 15:56] LABS: HCO3 ABG 18 mmol/L (21-28); PCO2 ABG 29 mmHg (35-46); PH ABG 7.41 (7.35-7.45); PO2 ABG 209 mmHg (65-108); SAT O2 ABG 99 % (92-99)
[2017-05-08] MEDS ORDERED: MAGNESIUM SULFATE 1GM 100 ML IV ONE ×2 (16:00)
[2017-05-08 17:22] LABS: FIO2 ABG 100%
[2017-05-08] MEDS: cefTRIAXone IV Push 1 GM VIAL. IVP SCH (19:32)
[2017-05-08] MEDS: ONDANSETRON ODT 4 MG TAB.RAPDIS. PO PRN (22:46)
[2017-05-09] VITALS (24 sets, daily range): BP systolic 110–138; BP diastolic 44–65
[2017-05-09] MEDS: NYSTATIN 100,000 UNITS/ML 5 ML ORAL.SUSP. SWSW SCH ×5 (01:01→21:00)
[2017-05-09 06:38] LABS: ALBUMIN 2.2 g/dL (3.4-5.0); ALBUMIN/GLOBULIN RATIO 0.8 (1.0-1.7); CALCIUM 7.4 mg/dL (8.5-10.1); CREATININE 0.9 mg/dL (0.6-1.0); GFR 61.2; POTASSIUM 3.3 mmol/L (3.5-5.1); TOTAL BILIRUBIN 0.4 mg/dL (0.2-1.0); TOTAL PROTEIN 5.1 g/dL (6.4-8.2)
[2017-05-09] MEDS ORDERED: POTASSIUM CHLORIDE 20MEQ 50 ML IV PRN ×2 (06:45→08:00)
[2017-05-09 06:53] LABS: HEMATOCRIT 23.9 % (36.0-47.0); RED BLOOD COUNT 2.44 x10^6/uL (3.50-5.40); RED CELL DISTRIBUTION WIDTH 20.4 % (11.5-14.5)
[2017-05-09] MEDS ORDERED: MAGNESIUM SULFATE 2GM 50 ML IV ONE ×2 (07:00→15:15)
[2017-05-09] MEDS ORDERED: AMIODARONE 150 MG in IV DEXTROSE 5% 100 ML IV ONE ×2 (07:00→14:00)
[2017-05-09 07:09] LABS: WHITE BLOOD COUNT 1.4 x10^3/uL (4.0-11.0)
[2017-05-09] MEDS ORDERED: POTASSIUM CHLORIDE 10 MEQ TABLET.ER. PO SCH (08:00)
--- NOTE | 2017-05-09 08:01 | PDOC ---
PROGRESS NOTES Subjective Subjective Oncology f/u Pt admitted after cycle 11 folfox therapy with mucositis, uti and increased creat. Counts noted to be down c/w recent chemo. Called by ICU yesterday - had code on floor - was shocked 6 times and has had some brief torsades since being in ICU, but looks remarkably well, not intubated and ok bp and feels ok Reports her mouth feels a little better overall Objective Objective Vital Signs Date Time Temp Pulse Resp B/P (MAP) Pulse Ox O2 Delivery O2 Flow Rate FiO2 05/09/17 07:22 55 119/50 05/09/17 06:00 24 99 Nasal Cannula 4.0 05/09/17 04:00 97.8 97.8 Physical Exam Abdomen: Normal bowel sounds, Soft, No tenderness Heart: Regular rate Extremities: No edema General: Alert, Oriented X3, Cooperative HEENT: Atraumatic, Other (has some healing ulceration mainly on lips, wearing dentures) Lungs: Clear to auscultation Assessment Assessment 1. Stage IV colon cancer on chemo 2. Admitted with low counts, mucositis and uti 3. Code blue on 05/08, but has come through well 4. Counts overall remain low, WBC and plts and hemoglobin has trended down. Looks c/w chemo effect and having the code yesterday may delay recovery for some time No bleeding and appears stable, so can be observed with current labs and will check cbc diff in am will let Dr Chang know of events Comment Review of Relevant I have reviewed the following items armida (where applicable) has been applied. Labs Laboratory Tests Test 05/08/17 06:30 05/08/17 08:17 05/08/17 14:42 05/08/17 15:10 Sodium Level 138 mmol/L (136-145) 143 mmol/L (136-145) Potassium Level 3.0 mmol/L (3.5-5.1) 2.5 mmol/L (3.5-5.1) Chloride Level 108 mmol/L (98-107) 108 mmol/L (98-107) Carbon Dioxide Level 20 mmol/L (21-32) 22 mmol/L (21-32) Anion Gap 10 (6-14) 13 (6-14) Blood Urea Nitrogen 16 mg/dL (7-20) 14 mg/dL (7-20) Creatinine 1.0 mg/dL (0.6-1.0) 1.1 mg/dL (0.6-1.0) Estimated GFR (Cockcroft-Gault) 54.2 48.6 BUN/Creatinine Ratio 16 (6-20) 13 (6-20) Glucose Level 84 mg/dL (70-99) 220 mg/dL (70-99) Calcium Level 8.0 mg/dL (8.5-10.1) 7.3 mg/dL (8.5-10.1) Total Bilirubin 0.3 mg/dL (0.2-1.0) 0.4 mg/dL (0.2-1.0) Aspartate Amino Transf (AST/SGOT) 22 U/L (15-37) 114 U/L (15-37) Alanine Aminotransferase (ALT/SGPT) 9 U/L (14-59) 67 U/L (14-59) Alkaline Phosphatase 69 U/L (46-116) 71 U/L (46-116) Total Protein 5.9 g/dL (6.4-8.2) 4.9 g/dL (6.4-8.2) Albumin 2.4 g/dL (3.4-5.0) 2.0 g/dL (3.4-5.0) Albumin/Globulin Ratio 0.7 (1.0-1.7) 0.7 (1.0-1.7) White Blood Count 1.5 x10^3/uL (4.0-11.0) 4.0 x10^3/uL (4.0-11.0) Red Blood Count 2.83 x10^6/uL (3.50-5.40) 2.82 x10^6/uL (3.50-5.40) Hemoglobin 9.5 g/dL (12.0-15.5) 9.3 g/dL (12.0-15.5) Hematocrit 28.0 % (36.0-47.0) 27.4 % (36.0-47.0) Mean Corpuscular Volume 99 fL (79-100) 97 fL (79-100) Mean Corpuscular Hemoglobin 34 pg (25-35) 33 pg (25-35) Mean Corpuscular Hemoglobin Concent 34 g/dL (31-37) 34 g/dL (31-37) Red Cell Distribution Width 20.4 % (11.5-14.5) 20.0 % (11.5-14.5) Platelet Count 18 x10^3/uL (140-400) 20 x10^3/uL (140-400) Neutrophils (%) (Auto) 38 % (31-73) Lymphocytes (%) (Auto) 43 % (24-48) Monocytes (%) (Auto) 16 % (0-9) Eosinophils (%) (Auto) 2 % (0-3) Basophils (%) (Auto) 1 % (0-3) Neutrophils # (Auto) 0.6 x10^3uL (1.8-7.7) Lymphocytes # (Auto) 0.7 x10^3/uL (1.0-4.8) Monocytes # (Auto) 0.2 x10^3/uL (0.0-1.1) Eosinophils # (Auto) 0.0 x10^3/uL (0.0-0.7) Basophils # (Auto) 0.0 x10^3/uL (0.0-0.2) Segmented Neutrophils % 33 % (35-66) Band Neutrophils % 2 % (0-9) Lymphocytes % 48 % (24-48) Atypical Lymphocytes % (Manual) 1 % (0-0) Monocytes % 14 % (0-10) Eosinophils % 1 % (0-5) Basophils % 1 % (0-3) Platelet Estimate Decreased (ADEQUATE) Poikilocytosis Slight Anisocytosis Mod Tear Drop Cells Few Ovalocytes Few O2 Saturation 89 % (92-99) Arterial Blood pH 7.28 (7.35-7.45) Arterial Blood pCO2 at Patient Temp 23 mmHg (35-46) Arterial Blood pO2 at Patient Temp 61 mmHg (65-108) Arterial Blood HCO3 10 mmol/L (21-28) Arterial Blood Base Excess -15 mmol/L (-3-3) FiO2 100 Magnesium Level 2.1 mg/dL (1.8-2.4) Thyroid Stimulating Hormone (TSH) 14.213 uIU/mL (0.358-3.74) Test 05/08/17 16:00 05/09/17 06:00 O2 Saturation 99 % (92-99) Arterial Blood pH 7.41 (7.35-7.45) Arterial Blood pCO2 at Patient Temp 29 mmHg (35-46) Arterial Blood pO2 at Patient Temp 209 mmHg (65-108) Arterial Blood HCO3 18 mmol/L (21-28) Arterial Blood Base Excess -6 mmol/L (-3-3) FiO2 100% White Blood Count 1.4 x10^3/uL (4.0-11.0) Red Blood Count 2.44 x10^6/uL (3.50-5.40) Hemoglobin 8.0 g/dL (12.0-15.5) Hematocrit 23.9 % (36.0-47.0) Mean Corpuscular Volume 98 fL (79-100) Mean Corpuscular Hemoglobin 33 pg (25-35) Mean Corpuscular Hemoglobin Concent 34 g/dL (31-37) Red Cell Distribution Width 20.4 % (11.5-14.5) Platelet Count 14 x10^3/uL (140-400) Sodium Level 140 mmol/L (136-145) Potassium Level 3.3 mmol/L (3.5-5.1) Chloride Level 111 mmol/L (98-107) Carbon Dioxide Level 20 mmol/L (21-32) Anion Gap 9 (6-14) Blood Urea Nitrogen 12 mg/dL (7-20) Creatinine 0.9 mg/dL (0.6-1.0) Estimated GFR (Cockcroft-Gault) 61.2 BUN/Creatinine Ratio 13 (6-20) Glucose Level 99 mg/dL (70-99) Calcium Level 7.4 mg/dL (8.5-10.1) Magnesium Level 1.7 mg/dL (1.8-2.4) Total Bilirubin 0.4 mg/dL (0.2-1.0) Aspartate Amino Transf (AST/SGOT) 81 U/L (15-37) Alanine Aminotransferase (ALT/SGPT) 50 U/L (14-59) Alkaline Phosphatase 70 U/L (46-116) Total Protein 5.1 g/dL (6.4-8.2) Albumin 2.2 g/dL (3.4-5.0) Albumin/Globulin Ratio 0.8 (1.0-1.7) Laboratory Tests Test 05/08/17 08:17 05/08/17 14:42 05/08/17 15:10 05/08/17 16:00 White Blood Count 1.5 x10^3/uL (4.0-11.0) 4.0 x10^3/uL (4.0-11.0) Red Blood Count 2.83 x10^6/uL (3.50-5.40) 2.82 x10^6/uL (3.50-5.40) Hemoglobin 9.5 g/dL (12.0-15.5) 9.3 g/dL (12.0-15.5) Hematocrit 28.0 % (36.0-47.0) 27.4 % (36.0-47.0) Mean Corpuscular Volume 99 fL (79-100) 97 fL (79-100) Mean Corpuscular Hemoglobin 34 pg (25-35) 33 pg (25-35) Mean Corpuscular Hemoglobin Concent 34 g/dL (31-37) 34 g/dL (31-37) Red Cell Distribution Width 20.4 % (11.5-14.5) 20.0 % (11.5-14.5) Platelet Count 18 x10^3/uL (140-400) 20 x10^3/uL (140-400) Neutrophils (%) (Auto) 38 % (31-73) Lymphocytes (%) (Auto) 43 % (24-48) Monocytes (%) (Auto) 16 % (0-9) Eosinophils (%) (Auto) 2 % (0-3) Basophils (%) (Auto) 1 % (0-3) Neutrophils # (Auto) 0.6 x10^3uL (1.8-7.7) Lymphocytes # (Auto) 0.7 x10^3/uL (1.0-4.8) Monocytes # (Auto) 0.2 x10^3/uL (0.0-1.1) Eosinophils # (Auto) 0.0 x10^3/uL (0.0-0.7) Basophils # (Auto) 0.0 x10^3/uL (0.0-0.2) Segmented Neutrophils % 33 % (35-66) Band Neutrophils % 2 % (0-9) Lymphocytes % 48 % (24-48) Atypical Lymphocytes % (Manual) 1 % (0-0) Monocytes % 14 % (0-10) Eosinophils % 1 % (0-5) Basophils % 1 % (0-3) Platelet Estimate Decreased (ADEQUATE) Poikilocytosis Slight Anisocytosis Mod Tear Drop Cells Few Ovalocytes Few O2 Saturation 89 % (92-99) 99 % (92-99) Arterial Blood pH 7.28 (7.35-7.45) 7.41 (7.35-7.45) Arterial Blood pCO2 at Patient Temp 23 mmHg (35-46) 29 mmHg (35-46) Arterial Blood pO2 at Patient Temp 61 mmHg (65-108) 209 mmHg (65-108) Arterial Blood HCO3 10 mmol/L (21-28) 18 mmol/L (21-28) Arterial Blood Base Excess -15 mmol/L (-3-3) -6 mmol/L (-3-3) FiO2 100 100% Sodium Level 143 mmol/L (136-145) Potassium Level 2.5 mmol/L (3.5-5.1) Chloride Level 108 mmol/L (98-107) Carbon Dioxide Level 22 mmol/L (21-32) Anion Gap 13 (6-14) Blood Urea Nitrogen 14 mg/dL (7-20) Creatinine 1.1 mg/dL (0.6-1.0) Estimated GFR (Cockcroft-Gault) 48.6 BUN/Creatinine Ratio 13 (6-20) Glucose Level 220 mg/dL (70-99) Calcium Level 7.3 mg/dL (8.5-10.1) Magnesium Level 2.1 mg/dL (1.8-2.4) Total Bilirubin 0.4 mg/dL (0.2-1.0) Aspartate Amino Transf (AST/SGOT) 114 U/L (15-37) Alanine Aminotransferase (ALT/SGPT) 67 U/L (14-59) Alkaline Phosphatase 71 U/L (46-116) Total Protein 4.9 g/dL (6.4-8.2) Albumin 2.0 g/dL (3.4-5.0) Albumin/Globulin Ratio 0.7 (1.0-1.7) Thyroid Stimulating Hormone (TSH) 14.213 uIU/mL (0.358-3.74) Test 05/09/17 06:00 White Blood Count 1.4 x10^3/uL (4.0-11.0) Red Blood Count 2.44 x10^6/uL (3.50-5.40) Hemoglobin 8.0 g/dL (12.0-15.5) Hematocrit 23.9 % (36.0-47.0) Mean Corpuscular Volume 98 fL (79-100) Mean Corpuscular Hemoglobin 33 pg (25-35) Mean Corpuscular Hemoglobin Concent 34 g/dL (31-37) Red Cell Distribution Width 20.4 % (11.5-14.5) Platelet Count 14 x10^3/uL (140-400) Sodium Level 140 mmol/L (136-145) Potassium Level 3.3 mmol/L (3.5-5.1) Chloride Level 111 mmol/L (98-107) Carbon Dioxide Level 20 mmol/L (21-32) Anion Gap 9 (6-14) Blood Urea Nitrogen 12 mg/dL (7-20) Creatinine 0.9 mg/dL (0.6-1.0) Estimated GFR (Cockcroft-Gault) 61.2 BUN/Creatinine Ratio 13 (6-20) Glucose Level 99 mg/dL (70-99) Calcium Level 7.4 mg/dL (8.5-10.1) Magnesium Level 1.7 mg/dL (1.8-2.4) Total Bilirubin 0.4 mg/dL (0.2-1.0) Aspartate Amino Transf (AST/SGOT) 81 U/L (15-37) Alanine Aminotransferase (ALT/SGPT) 50 U/L (14-59) Alkaline Phosphatase 70 U/L (46-116) Total Protein 5.1 g/dL (6.4-8.2) Albumin 2.2 g/dL (3.4-5.0) Albumin/Globulin Ratio 0.8 (1.0-1.7) Microbiology 05/06/17 Urine Culture - Final, Complete 05/06/17 Urine Culture Result 1 (MARINE) - Final, Complete Medications Current Medications Ceftriaxone Sodium 1 gm/ Dextrose 50 ml @ 100 mls/hr Q24H IV ; Start 05/05/17 at 18:00; Status UNV Vancomycin HCl (Vanco Per Pharmacy) 1 each PRN DAILY PRN MC SEE COMMENTS Last administered on 05/06/17t 12:53; Start 05/05/17 at 18:00; Stop 05/06/17 at 13:10 ; Status DC Ceftriaxone Sodium (Rocephin) 1 gm Q24H IVP Last administered on 05/08/17 19: 32; Start 05/05/17 at 18:00 Sodium Chloride 1,000 ml @ 75 mls/hr [id number] IV Last administered on 04:20; Start 05/05/17 at 18:15; Stop 05/08/17 at 13:44; Status DC Atorvastatin Calcium (Lipitor) 40 mg DAILY PO Last administered on 05/08/17 08:23; Start 05/06/17 at 09:00 Diazepam (Valium) 5 mg TID PO Last administered on 05/08/17 21:06; Start 05/05/17 at 21:00 Levothyroxine Sodium (Synthroid) 75 mcg DAILYAC PO Last administered on 10:09; Start 05/06/17 at 07:30 Metoprolol Tartrate (Lopressor) 25 mg BID PO Last administered on 05/08/17 08 :25; Start 05/05/17 at 21:00 Pantoprazole Sodium (Protonix) 40 mg DAILY PO Last administered on 05/08/17 08:25; Start 05/06/17 at 09:00 Tramadol HCl (Ultram) 50 mg PRN Q6HRS PRN PO PAIN; Start 05/05/17 at 18:15 Ondansetron HCl (Zofran Odt) 8 mg PRN Q12HRS PRN PO NAUSEA/VOMITING Last administered on 05/08/17 22:46; Start 05/05/17 at 18:30 Venlafaxine HCl (Effexor Xr) 75 mg DAILY PO Last administered on 05/08/17 08: 26; Start 05/06/17 at 09:00 Vancomycin HCl 1.75 gm/Dextrose 500 ml @ 250 mls/hr 1X ONCE IV Last administered on 05/05/17 19:21; Start 05/05/17 at 18:30; Stop 05/05/17 at 20:29 ; Status DC Vancomycin HCl 1 gm/Dextrose 250 ml @ 250 mls/hr Q24H IV ; Start 05/06/17 at 19 :30; Stop 05/06/17 at 19:30; Status DC Vancomycin HCl 1 each 1X ONCE MC ; Start 05/07/17 at 19:00; Stop 05/07/17 at 19:01; Status Cancel Acyclovir (Zovirax) 400 mg [id number] PO Last administered on 05/08/17 21:07; Start 05/06/17 at 09:00 Doxycycline Hyclate (Vibra-Tab) 100 mg BID PO Last administered on 05/08/17 21:06; Start 05/06/17 at 14:00 Multi-Ingredient Mouthwash/Gargle (Magic Mouthwash) 10 ml PRN QID PRN PO MOUTH PAIN Last administered on 05/08/17 10:12; Start 05/07/17 at 09:00 Nystatin 5 ml [id number] Last administered on 05/08/17 16:53; Start at 13:00 Potassium Chloride/Dextrose/ Sod Cl 1,000 ml @ 75 mls/hr [id number] IV ; Start at 14:00; Stop 05/08/17 at 16:37; Status DC Potassium Chloride (Klor-Con) 40 meq 1X ONCE PO Last administered on 14:12; Start 05/08/17 at 14:00; Stop 05/08/17 at 14:01; Status DC Amiodarone HCl 900 mg/Dextrose 518 ml @ 34.53 mls/ hr CONT PRN IV SEE I/O RECORD; Start 05/08/17 at 14:45 Amiodarone HCl 900 mg/Dextrose 518 ml @ 0 mls/hr CONT PRN IV SEE I/O RECORD; Start 05/08/17 at 14:45; Status UNV Sodium Chloride 500 ml @ 500 mls/hr 1X ONCE IV Last administered on 15:30; Start 05/08/17 at 15:30; Stop 05/08/17 at 16:29; Status DC Sodium Bicarbonate 100 meq 1X ONCE IV Last administered on 05/08/17 16:52; Start 05/08/17 at 15:30; Stop 05/08/17 at 15:31; Status DC Magnesium Sulfate/ Dextrose 100 ml @ 100 mls/hr 1X ONCE IV Last administered on 05/08/17 16:00; Start 05/08/17 at 16:00; Stop 05/08/17 at 16:59; Status DC Magnesium Sulfate/ Dextrose 100 ml @ 100 mls/hr 1X ONCE IV Last administered on 05/08/17 16:00; Start 05/08/17 at 16:00; Stop 05/08/17 at 16:59; Status DC Potassium Chloride (Klor-Con) 40 meq [id number] PO ; Start 05/09/17 at 08:00 Potassium Chloride (Klor-Con) 40 meq 1X ONCE PO Last administered on 16:53; Start 05/08/17 at 17:00; Stop 05/08/17 at 17:01; Status DC Potassium Chloride/Sodium Chloride 1,000 ml @ 80 mls/hr [id number] IV Last administered on 05/09/17 05:49; Start 05/08/17 at 17:30 Amiodarone HCl 150 mg/Dextrose 103 ml @ 618 mls/hr 1X ONCE IV Last administered on 05/09/17 07:22; Start 05/09/17 at 07:00; Stop 05/09/17 at 07 :09; Status DC Magnesium Sulfate/ Dextrose 50 ml @ 25 mls/hr 1X ONCE IV Last administered on 05/09/17 07:11; Start 05/09/17 at 07:00; Stop 05/09/17 at 08:59 Potassium Chloride 50 ml @ 25 mls/hr PRN Q2HRS PRN IV K-3.1 TO 3.5; Start 06/13 at 06:45 Potassium Chloride 50 ml @ 25 mls/hr PRN Q2HRS PRN IV K 2.6 TO 3; Start at 06:45 Potassium Chloride 50 ml @ 25 mls/hr PRN Q2HRS PRN IV FOR K<2.6; Start at 08:00 Magnesium Sulfate/ Dextrose 100 ml @ 50 mls/hr PRN DAILY PRN IV MAG<1.8; Start 05/09/17 at 09:00 Active Scripts Active Reported Levofloxacin 500 Mg Tablet 500 Mg PO DAILY Tramadol Hcl 50 Mg Tablet 50 Mg PO Q6H PRN Ondansetron Hcl 4 Mg Tablet 8 Mg PO BID PRN [place] 5-325 Tablet (Acetaminophen/Hydrocodone Bitart) 1 Each Tablet 1-2 Tab PO Q4HRS PRN Atorvastatin Calcium 40 Mg Tablet 1 Tab PO DAILY Metoprolol Tartrate 25 Mg Tablet 1 Tab PO BID Pantoprazole Sodium 40 Mg Tablet.dr 1 Tab PO DAILY Diazepam 5 Mg Tablet 5 Mg PO TID Venlafaxine Hcl Er (Venlafaxine Hcl) 75 Mg Cap.er.24h 75 Mg PO DAILY Synthroid (Levothyroxine Sodium) 75 Mcg Tablet 75 Mcg PO DAILYAC Vitals/I & O Vital Sign - Last 24 Hours 05/08/17 05/08/17 05/08/17 05/08/17 08:00 08:25 11:00 14:45 Temp 98.4 97.3 98.4 97.3 Pulse 62 63 70 Resp 18 B/P (MAP) 118/63 110/56 (74) 71/58 (62) Pulse Ox 95 83 O2 Delivery Room Air Room Air NonRebreather Mask O2 Flow Rate 15.0 05/08/17 05/08/17 05/08/17 05/08/17 15:00 15:00 15:00 15:15 Pulse 64 64 58 Resp 34 B/P (MAP) 118/54 (75) 118/54 (75) 144/66 (92) Pulse Ox 96 O2 Delivery Non-Rebreather NonRebreather Mask O2 Flow Rate 15.0 15.0 05/08/17 05/08/17 05/08/17 05/08/17 15:15 15:30 15:45 15:45 Pulse 58 58 62 62 Resp 32 24 24 B/P (MAP) 144/66 (92) 87/63 (71) 106/50 (68) 106/50 (68) Pulse Ox 100 100 100 O2 Delivery NonRebreather Mask NonRebreather Mask NonRebreather Mask O2 Flow Rate 15.0 15.0 15.0 05/08/17 05/08/17 05/08/17 05/08/17 16:00 16:00 17:00 17:00 Pulse 64 64 62 62 Resp 29 27 B/P (MAP) 102/48 (66) 102/48 (66) 116/56 (76) 116/56 (76) Pulse Ox 100 99 O2 Delivery Nasal Cannula Nasal Cannula O2 Flow Rate 4.0 4.0 05/08/17 05/08/17 05/08/17 05/08/17 18:00 18:00 19:00 19:00 Pulse 68 68 59 59 Resp 28 24 B/P (MAP) 114/56 (75) 114/56 (75) 107/57 (74) 107/57 (74) Pulse Ox 98 99 O2 Delivery Nasal Cannula Nasal Cannula O2 Flow Rate 4.0 4.0 05/08/17 05/08/17 05/08/17 05/08/17 20:00 20:00 20:00 21:00 Temp 98.2 98.2 Pulse 61 61 57 Resp 34 B/P (MAP) 122/59 (80) 122/59 (80) 129/56 Pulse Ox 98 O2 Delivery Nasal Cannula Nasal Cannula O2 Flow Rate 4.0 4.0 05/08/17 05/08/17 05/08/17 05/08/17 21:00 21:00 22:00 22:00 Pulse 58 58 60 60 Resp 23 31 B/P (MAP) 116/54 (74) 116/54 (74) 120/44 (69) 120/44 (69) Pulse Ox 99 99 O2 Delivery Nasal Cannula Nasal Cannula O2 Flow Rate 4.0 4.0 05/08/17 05/08/17 05/09/17 05/09/17 23:00 23:00 00:00 00:00 Temp 97.7 97.7 Pulse 59 59 58 Resp 28 29 B/P (MAP) 123/51 (75) 123/51 (75) 112/46 (68) Pulse Ox 98 98 O2 Delivery Nasal Cannula Nasal Cannula Nasal Cannula O2 Flow Rate 4.0 4.0 4.0 05/09/17 05/09/17 05/09/17 05/09/17 00:00 01:00 01:00 02:00 Pulse 58 58 58 58 Resp 24 28 B/P (MAP) 112/46 (68) 120/44 (69) 120/44 (69) 110/46 (67) Pulse Ox 96 99 O2 Delivery Nasal Cannula Nasal Cannula O2 Flow Rate 4.0 4.0 05/09/17 05/09/17 05/09/17 05/09/17 02:00 03:00 03:00 04:00 Pulse 58 58 58 58 Resp 31 B/P (MAP) 110/46 (67) 127/47 (73) 125/47 (73) 116/46 (69) Pulse Ox 99 O2 Delivery Nasal Cannula O2 Flow Rate 4.0 11/1205/09/17 05/09/17 05/09/17 04:00 04:00 05:00 05:00 Temp 97.8 97.8 Pulse 58 60 60 Resp 25 26 B/P (MAP) 116/46 (69) 110/46 (67) 110/46 (67) Pulse Ox 99 98 O2 Delivery Nasal Cannula Nasal Cannula Nasal Cannula O2 Flow Rate 4.0 4.0 4.0 05/09/17 05/09/17 05/09/17 06:00 06:00 07:22 Pulse 62 62 55 Resp 24 B/P (MAP) 120/50 (73) 120/50 (73) 119/50 Pulse Ox 99 O2 Delivery Nasal Cannula O2 Flow Rate 4.0 ERNA HUTCHINSON MD May 09, 2017 08:01
--- NOTE | 2017-05-09 08:07 | RAD ---
EXAM: Chest, single view. HISTORY: Postcode. COMPARISON: 05/05/2017. FINDINGS: A frontal view of the chest is obtained. There has been slight interval increase in interstitial prominence. There is no consolidation, effusion or pneumothorax. The heart is normal in size. There is a port catheter with the tip oriented horizontally within the superior vena cava. IMPRESSION: Diffuse increased interstitial opacity suggesting mild congestion.
[2017-05-09] MEDS ORDERED: POTASSIUM CHLORIDE 20MEQ 50 ML IV SCH (08:15)
[2017-05-09] MEDS ORDERED: MAGNESIUM SULFATE 4GM 100 ML IV PRN (09:00)
[2017-05-09] MEDS: METOPROLOL TART IMMED RELEASE 25 MG TABLET. PO SCH ×2 (09:00→21:00)
[2017-05-09] MEDS: DOXYCYCLINE HYCLATE 100 MG TABLET PO SCH ×2 (09:11→21:36)
[2017-05-09] MEDS: VENLAFAXINE XR 37.5 MG CAP.ER.24H. PO SCH (09:11)
[2017-05-09] MEDS: LEVOTHYROXINE 75 MCG TABLET PO SCH (09:11)
[2017-05-09] MEDS: PANTOPRAZOLE 40 MG TABLET.DR. PO SCH (09:11)
[2017-05-09] MEDS: ACYCLOVIR 200 MG CAPSULE. PO SCH ×3 (09:11→21:37)
[2017-05-09] MEDS: POTASSIUM CHLORIDE 20MEQ 50 ML IV SCH ×2 (09:11→10:00)
[2017-05-09] MEDS: ATORVASTATIN CALCIUM 40 MG TABLET. PO SCH (09:12)
[2017-05-09] MEDS: diazePAM 5 MG TABLET PO SCH ×3 (09:12→21:36)
--- NOTE | 2017-05-09 10:32 | PDOC ---
SUBJECTIVE Subjective looks good , does not remember what happen " just wake up in different room" has no complaints denies proior cardiac hx or Fhx of cardiac disease OBJECTIVE Vital Signs Vital Signs Date Time Temp Pulse Resp B/P (MAP) Pulse Ox O2 Delivery O2 Flow Rate FiO2 05/09/17 10:00 62 118/56 (76) 05/09/17 10:00 62 31 118/56 (76) 93 Room Air 05/09/17 09:00 55 20 128/58 (81) 100 Nasal Cannula 4.0 05/09/17 09:00 55 128/58 (81) 05/09/17 08:00 55 120/48 (72) 05/09/17 08:00 Nasal Cannula 4.0 05/09/17 08:00 97.6 55 22 120/48 (72) 99 Nasal Cannula 4.0 97.6 05/09/17 07:22 55 119/50 05/09/17 07:00 58 126/46 (72) 05/09/17 07:00 58 23 126/46 (72) 99 Nasal Cannula 4.0 05/09/17 06:00 62 120/50 (73) 05/09/17 06:00 62 24 120/50 (73) 99 Nasal Cannula 4.0 05/09/17 05:00 60 110/46 (67) 05/09/17 05:00 60 26 110/46 (67) 98 Nasal Cannula 4.0 05/09/17 04:00 Nasal Cannula 4.0 05/09/17 04:00 97.8 58 25 116/46 (69) 99 Nasal Cannula 4.0 97.8 05/09/17 04:00 58 116/46 (69) 05/09/17 03:00 58 31 125/47 (73) 99 Nasal Cannula 4.0 05/09/17 03:00 58 127/47 (73) 05/09/17 02:00 58 110/46 (67) 05/09/17 02:00 58 28 110/46 (67) 99 Nasal Cannula 4.0 05/09/17 01:00 58 120/44 (69) 05/09/17 01:00 58 24 120/44 (69) 96 Nasal Cannula 4.0 05/09/17 00:00 58 112/46 (68) 05/09/17 00:00 97.7 58 29 112/46 (68) 98 Nasal Cannula 4.0 97.7 05/09/17 00:00 Nasal Cannula 4.0 05/08/17 23:00 59 123/51 (75) 05/08/17 23:00 59 28 123/51 (75) 98 Nasal Cannula 4.0 05/08/17 22:00 60 120/44 (69) 05/08/17 22:00 60 31 120/44 (69) 99 Nasal Cannula 4.0 05/08/17 21:00 58 23 116/54 (74) 99 Nasal Cannula 4.0 05/08/17 21:00 58 116/54 (74) 05/08/17 21:00 57 129/56 05/08/17 20:00 61 122/59 (80) 05/08/17 20:00 98.2 61 34 122/59 (80) 98 Nasal Cannula 4.0 98.2 05/08/17 20:00 Nasal Cannula 4.0 05/08/17 19:00 59 24 107/57 (74) 99 Nasal Cannula 4.0 05/08/17 19:00 59 107/57 (74) 05/08/17 18:00 68 28 114/56 (75) 98 Nasal Cannula 4.0 05/08/17 18:00 68 114/56 (75) 05/08/17 17:00 62 116/56 (76) 05/08/17 17:00 62 27 116/56 (76) 99 Nasal Cannula 4.0 05/08/17 16:00 64 29 102/48 (66) 100 Nasal Cannula 4.0 05/08/17 16:00 64 102/48 (66) 05/08/17 15:45 62 106/50 (68) 05/08/17 15:45 62 24 106/50 (68) 100 NonRebreather Mask 15.0 05/08/17 15:30 58 24 87/63 (71) 100 NonRebreather Mask 15.0 05/08/17 15:15 58 32 144/66 (92) 100 NonRebreather Mask 15.0 05/08/17 15:15 58 144/66 (92) 05/08/17 15:00 64 34 118/54 (75) 96 NonRebreather Mask 15.0 05/08/17 15:00 64 118/54 (75) 05/08/17 15:00 Non-Rebreather 15.0 05/08/17 14:45 97.3 70 71/58 (62) 83 NonRebreather Mask 15.0 97.3 05/08/17 11:00 98.4 63 18 110/56 (74) 95 Room Air 98.4 I & O Intake and Output 05/10/17 07:00 Output Total 100 ml Balance -100 ml Stool Total 100 ml PHYSICAL EXAM Physical Exam lungs fairly clear upper lobes heart RRR abd soft ext no edema ASSESSMENT/PLAN Assessment/Plan 1- code blue yesterday was shocked 6 times and has had some brief torsades since being in ICU on Amiodarone drip 2.pneumonitis and Fever in immunocompromised pt continue ABx by ID 3.Mucositis improving 4.dysphagia 5. History of colon cancer, status post surgery and recently on chemotherapy. 6. Neutropenia and thrombocytopenia and anemia from chemo. 7. Renal insufficiency. 8. Hyperlipidemia. 9. Hypertension. 10. Degenerative joint disease. 11. Hypothyroidism. 12.Hypokalemia replacing 13. malnourished Dr Lr will resume care in AM Problems: COMMENT Lab Laboratory Tests Test 05/08/17 14:42 05/08/17 15:10 05/08/17 16:00 05/09/17 06:00 O2 Saturation 89 % (92-99) 99 % (92-99) Arterial Blood pH 7.28 (7.35-7.45) 7.41 (7.35-7.45) Arterial Blood pCO2 at Patient Temp 23 mmHg (35-46) 29 mmHg (35-46) Arterial Blood pO2 at Patient Temp 61 mmHg (65-108) 209 mmHg (65-108) Arterial Blood HCO3 10 mmol/L (21-28) 18 mmol/L (21-28) Arterial Blood Base Excess -15 mmol/L (-3-3) -6 mmol/L (-3-3) FiO2 100 100% White Blood Count 4.0 x10^3/uL (4.0-11.0) 1.4 x10^3/uL (4.0-11.0) Red Blood Count 2.82 x10^6/uL (3.50-5.40) 2.44 x10^6/uL (3.50-5.40) Hemoglobin 9.3 g/dL (12.0-15.5) 8.0 g/dL (12.0-15.5) Hematocrit 27.4 % (36.0-47.0) 23.9 % (36.0-47.0) Mean Corpuscular Volume 97 fL (79-100) 98 fL (79-100) Mean Corpuscular Hemoglobin 33 pg (25-35) 33 pg (25-35) Mean Corpuscular Hemoglobin Concent 34 g/dL (31-37) 34 g/dL (31-37) Red Cell Distribution Width 20.0 % (11.5-14.5) 20.4 % (11.5-14.5) Platelet Count 20 x10^3/uL (140-400) 14 x10^3/uL (140-400) Sodium Level 143 mmol/L (136-145) 140 mmol/L (136-145) Potassium Level 2.5 mmol/L (3.5-5.1) 3.3 mmol/L (3.5-5.1) Chloride Level 108 mmol/L (98-107) 111 mmol/L (98-107) Carbon Dioxide Level 22 mmol/L (21-32) 20 mmol/L (21-32) Anion Gap 13 (6-14) 9 (6-14) Blood Urea Nitrogen 14 mg/dL (7-20) 12 mg/dL (7-20) Creatinine 1.1 mg/dL (0.6-1.0) 0.9 mg/dL (0.6-1.0) Estimated GFR (Cockcroft-Gault) 48.6 61.2 BUN/Creatinine Ratio 13 (6-20) 13 (6-20) Glucose Level 220 mg/dL (70-99) 99 mg/dL (70-99) Calcium Level 7.3 mg/dL (8.5-10.1) 7.4 mg/dL (8.5-10.1) Magnesium Level 2.1 mg/dL (1.8-2.4) 1.7 mg/dL (1.8-2.4) Total Bilirubin 0.4 mg/dL (0.2-1.0) 0.4 mg/dL (0.2-1.0) Aspartate Amino Transf (AST/SGOT) 114 U/L (15-37) 81 U/L (15-37) Alanine Aminotransferase (ALT/SGPT) 67 U/L (14-59) 50 U/L (14-59) Alkaline Phosphatase 71 U/L (46-116) 70 U/L (46-116) Total Protein 4.9 g/dL (6.4-8.2) 5.1 g/dL (6.4-8.2) Albumin 2.0 g/dL (3.4-5.0) 2.2 g/dL (3.4-5.0) Albumin/Globulin Ratio 0.7 (1.0-1.7) 0.8 (1.0-1.7) Thyroid Stimulating Hormone (TSH) 14.213 uIU/mL (0.358-3.74) Phosphorus Level 1.9 mg/dL (2.6-4.7) YAHAIRA ZARCO MD May 09, 2017 10:32
[2017-05-09] MEDS: POTASSIUM CHLORIDE 20MEQ 50 ML IV PRN ×2 (10:52→11:44)
[2017-05-09] MEDS ORDERED: POTASSIUM CHLORIDE 20 MEQ TABLET.ER. PO ONE (11:00)
[2017-05-09] MEDS: POTASSIUM CL 20MEQ D5-0.45NACL 1,000 ML IV SCH (11:43)
--- NOTE | 2017-05-09 13:59 | PDOC ---
Infectious Disease Note Subjective Subjective pt feeling ok, ROS ROS GEN: Denies fevers, chills, sweats HEENT: Denies blurred vision, sore throat CV: Denies chest pain RESP: Denies shortness of air, cough GI: Denies n/v/d NEURO: Denies confusion, dizziness MSK: Denies weakness, joint pain/swelling Vital Sign Vital Signs Vital Signs Date Time Temp Pulse Resp B/P (MAP) Pulse Ox O2 Delivery O2 Flow Rate FiO2 05/09/17 12:00 97.7 59 27 123/45 (71) 91 Room Air 97.7 05/09/17 09:00 4.0 Physical Exam PHYSICAL EXAM GENERAL: NAD, Alert HEENT: PERRL, OC/OP NECK: Supple, no JVD, no LN LUNGS: Clear HEART: S1S2, no gallop, no murmur ABD: Soft, NT, no organomegaly, no rebound EXT: No edema, no cyanosis 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, oriented x 3, no focal neurologic deficit SKIN: No rash IV: ok Labs Lab Laboratory Tests Test 05/08/17 14:42 05/08/17 15:10 05/08/17 16:00 05/09/17 06:00 O2 Saturation 89 % (92-99) 99 % (92-99) Arterial Blood pH 7.28 (7.35-7.45) 7.41 (7.35-7.45) Arterial Blood pCO2 at Patient Temp 23 mmHg (35-46) 29 mmHg (35-46) Arterial Blood pO2 at Patient Temp 61 mmHg (65-108) 209 mmHg (65-108) Arterial Blood HCO3 10 mmol/L (21-28) 18 mmol/L (21-28) Arterial Blood Base Excess -15 mmol/L (-3-3) -6 mmol/L (-3-3) FiO2 100 100% White Blood Count 4.0 x10^3/uL (4.0-11.0) 1.4 x10^3/uL (4.0-11.0) Red Blood Count 2.82 x10^6/uL (3.50-5.40) 2.44 x10^6/uL (3.50-5.40) Hemoglobin 9.3 g/dL (12.0-15.5) 8.0 g/dL (12.0-15.5) Hematocrit 27.4 % (36.0-47.0) 23.9 % (36.0-47.0) Mean Corpuscular Volume 97 fL (79-100) 98 fL (79-100) Mean Corpuscular Hemoglobin 33 pg (25-35) 33 pg (25-35) Mean Corpuscular Hemoglobin Concent 34 g/dL (31-37) 34 g/dL (31-37) Red Cell Distribution Width 20.0 % (11.5-14.5) 20.4 % (11.5-14.5) Platelet Count 20 x10^3/uL (140-400) 14 x10^3/uL (140-400) Sodium Level 143 mmol/L (136-145) 140 mmol/L (136-145) Potassium Level 2.5 mmol/L (3.5-5.1) 3.3 mmol/L (3.5-5.1) Chloride Level 108 mmol/L (98-107) 111 mmol/L (98-107) Carbon Dioxide Level 22 mmol/L (21-32) 20 mmol/L (21-32) Anion Gap 13 (6-14) 9 (6-14) Blood Urea Nitrogen 14 mg/dL (7-20) 12 mg/dL (7-20) Creatinine 1.1 mg/dL (0.6-1.0) 0.9 mg/dL (0.6-1.0) Estimated GFR (Cockcroft-Gault) 48.6 61.2 BUN/Creatinine Ratio 13 (6-20) 13 (6-20) Glucose Level 220 mg/dL (70-99) 99 mg/dL (70-99) Calcium Level 7.3 mg/dL (8.5-10.1) 7.4 mg/dL (8.5-10.1) Magnesium Level 2.1 mg/dL (1.8-2.4) 1.7 mg/dL (1.8-2.4) Total Bilirubin 0.4 mg/dL (0.2-1.0) 0.4 mg/dL (0.2-1.0) Aspartate Amino Transf (AST/SGOT) 114 U/L (15-37) 81 U/L (15-37) Alanine Aminotransferase (ALT/SGPT) 67 U/L (14-59) 50 U/L (14-59) Alkaline Phosphatase 71 U/L (46-116) 70 U/L (46-116) Total Protein 4.9 g/dL (6.4-8.2) 5.1 g/dL (6.4-8.2) Albumin 2.0 g/dL (3.4-5.0) 2.2 g/dL (3.4-5.0) Albumin/Globulin Ratio 0.7 (1.0-1.7) 0.8 (1.0-1.7) Thyroid Stimulating Hormone (TSH) 14.213 uIU/mL (0.358-3.74) Phosphorus Level 1.9 mg/dL (2.6-4.7) Objective Assessment 1. Fever, chills prior to admit 2.bronchitis possible early pneumonia 3. Pyruia and dysuria 4.Mucositis 5.dysphagia 6. History of colon cancer, status post surgery and recently on chemotherapy. 7. Neutropenia and thrombocytopenia from chemo. 8. Oral mucositis. 9. Renal insufficiency. 10. Hyperlipidemia. 11. Hypertension. 12. Degenerative joint disease. 13. Hypothyroidism. Recurrent V tech, coded, shocked and amio Plan Plan of Care 1. Continue Rocephin and doxycycline 2. continue acyclovir 3 supportive care 4.pulm and oncology following 3. Follow up culture and susceptibility results. d/w SAVAGE Miranda MD May 09, 2017 13:59
[2017-05-09] MEDS ORDERED: CALCIUM GLUCONATE 1,000 MG/10 ML VIAL. IVP ONE (14:00)
--- NOTE | 2017-05-09 14:04 | CARD ---
APPROVED REPORT EXAM: Two-dimensional and M-mode echocardiogram with Doppler and color Doppler. Other Information Quality : FairHR: 65bpm Rhythm : NSR INDICATION Post Code 2D DIMENSIONS Left Atrium(2D)3.0 (1.6-4.0cm)IVSd1.1 (0.7-1.1cm) Aortic Root(2D)2.5 (2.0-3.7cm)LVDd3.5 (3.9-5.9cm) LVOT Diameter2.4 (1.8-2.4cm)PWd1.1 (0.7-1.1cm) LVDs3.1 (2.5-4.0cm)FS (%) 12.2 % SV13.7 mlLVEF(%)27.0 (>50%) CO0.9 L/min M-Mode DIMENSIONS Aortic Cusp Exc1.65 (1.5-2.0cm) Aortic Valve AoV Peak Ramesh.108.9cm/sAoV VTI23.2cm AO Peak GR.4.7mmHgLVOT VTI 19.65cm AO Mean GR.3mmHg Mitral Valve MV E Spfcrlig62.4cm/sMV E Peak Gr.3mmHg MV DECEL [id number] A Unruhztm98.9cm/s MV E Mean Gr.1mmHgE/A Ratio1.5 MV A [id number] TDI Lateral E' P. V7.82cm/sMedial E' P. V6.72cm/s E/Lateral E'11.2E/Medial E'13.0 Pulmonary Valve PV Peak Pmiwyqqr43.3cm/s Tricuspid Valve TR P. Htxsvpur058nl/sTR Peak Gr.29mmHg LEFT VENTRICLE The left ventricle is normal size. There is normal left ventricular wall thickness. The LV systolic f unction is moderate to severely impaired.EF27% Regional wall motion abnormalities noted. No left vent ricle thrombus noted on this study. There is no ventricular septal defect visualized. There is no lef t ventricular aneurysm. There is no mass noted in the left ventricle. RIGHT VENTRICLE The right ventricle is normal size. There is normal right ventricular wall thickness. The right ventr icular systolic function is decreased. ATRIA The left atrium size is normal. The right atrium size is normal. The interatrial septum is intact wit h no evidence for an atrial septal defect or patent foramen ovale as noted on 2-D or Doppler imaging. AORTIC VALVE The aortic valve is normal in structure and function. Doppler and Color Flow revealed no significant aortic regurgitation. There is no significant aortic valvular stenosis. There is no aortic valvular v egetation. MITRAL VALVE The mitral valve is normal in structure There is no evidence of mitral valve prolapse. There is no mi tral valve stenosis. Doppler and Color Flow revealed trace mitral valve regurgitation noted. TRICUSPID VALVE The tricuspid valve is normal in structure Doppler and Color Flow revealed mild tricuspid regurgitati on.29mmHg There is no tricuspid valve prolapse or vegetation. There is no tricuspid valve stenosis. PULMONIC VALVE The pulmonary valve is normal in structure Doppler and Color Flow revealed mild pulmonic valvular reg urgitation. There is no pulmonic valvular stenosis. GREAT VESSELS The aortic root is normal in size. The ascending aorta is normal in size. The IVC is normal in size a nd collapses >50% with inspiration. PERICARDIAL EFFUSION There is no pleural effusion. There is a very small pericardial effusion. Critical Notification Critical Value: No <Conclusion> The LV systolic function is moderate to severely impaired.EF27% The right ventricular systolic function is decreased. The left atrium size is normal. The right atrium size is normal. The aortic valve is normal in structure and function. Doppler and Color Flow revealed trace mitral valve regurgitation noted. Doppler and Color Flow revealed mild tricuspid regurgitation.29mmHg Doppler and Color Flow revealed mild pulmonic valvular regurgitation. There is a very small pericardial effusion.
--- NOTE | 2017-05-09 14:29 | PDOC2 ---
CONSULT Date of Consult Date of Consult DATE: 05/09/17 TIME: 14:23 Reason for Consult Reason for Consult: Code Referring Physician Referring Physician: Dr. Baca Identification/Chief Complaint Chief Complaint Colon CA Problems: History of Present Illness Reason for Visit: This patient is a 72-year-old lady that has a colon cancer and is neutropenic secondary to chemotherapy. She is status post colon resection and has a colostomy. The patient was found to be unresponsive and pulseless. A code was called and she was successfully resuscitated. Today she complains of his chest wall pains at least very weak. The patient denies any previous cardiac problems. She has been having runs of ventricular tachycardia and during the code she was in sustained V. tach requiring multiple shocks as well as multiple medications. At this point she is on an amiodarone drip. Past Medical History Cardiovascular: HTN, Hyperlipidemia Psych: Anxiety Endocrine: Hypothyroidism Past Surgical History Past Surgical History: No pertinent history Family History Family History: Cancer Social History ALCOHOL: occassional Drugs: None Lives: Alone Current Medications Current Medications Current Medications Ceftriaxone Sodium 1 gm/ Dextrose 50 ml @ 100 mls/hr Q24H IV ; Start 05/05/17 at 18:00; Status UNV Vancomycin HCl (Vanco Per Pharmacy) 1 each PRN DAILY PRN MC SEE COMMENTS Last administered on 05/06/17 12:53; Start 05/05/17 at 18:00; Stop 05/06/17 at 13:10 ; Status DC Ceftriaxone Sodium (Rocephin) 1 gm Q24H IVP Last administered on 05/08/17 19: 32; Start 05/05/17 at 18:00 Sodium Chloride 1,000 ml @ 75 mls/hr [id number] IV Last administered on 04:20; Start 05/05/17 at 18:15; Stop 05/08/17 at 13:44; Status DC Atorvastatin Calcium (Lipitor) 40 mg DAILY PO Last administered on 05/09/17 09:12; Start 05/06/17 at 09:00 Diazepam (Valium) 5 mg TID PO Last administered on 05/09/17 09:12; Start 05/05/17 at 21:00 Levothyroxine Sodium (Synthroid) 75 mcg DAILYAC PO Last administered on 09:11; Start 05/06/17 at 07:30 Metoprolol Tartrate (Lopressor) 25 mg BID PO Last administered on 05/08/17 08 :25; Start 05/05/17 at 21:00 Pantoprazole Sodium (Protonix) 40 mg DAILY PO Last administered on 05/09/17 09:11; Start 05/06/17 at 09:00 Tramadol HCl (Ultram) 50 mg PRN Q6HRS PRN PO PAIN; Start 05/05/17 at 18:15 Ondansetron HCl (Zofran Odt) 8 mg PRN Q12HRS PRN PO NAUSEA/VOMITING Last administered on 05/08/17 22:46; Start 05/05/17 at 18:30 Venlafaxine HCl (Effexor Xr) 75 mg DAILY PO Last administered on 05/09/17 09: 11; Start 05/06/17 at 09:00 Vancomycin HCl 1.75 gm/Dextrose 500 ml @ 250 mls/hr 1X ONCE IV Last administered on 05/05/17 19:21; Start 05/05/17 at 18:30; Stop 05/05/17 at 20:29 ; Status DC Vancomycin HCl 1 gm/Dextrose 250 ml @ 250 mls/hr Q24H IV ; Start 05/06/17 at 19 :30; Stop 05/06/17 at 19:30; Status DC Vancomycin HCl 1 each 1X ONCE MC ; Start 05/07/17 at 19:00; Stop 05/07/17 at 19:01; Status Cancel Acyclovir (Zovirax) 400 mg [id number] PO Last administered on 05/09/17 09:11; Start 05/06/17 at 09:00 Doxycycline Hyclate (Vibra-Tab) 100 mg BID PO Last administered on 05/09/17 09:11; Start 05/06/17 at 14:00 Multi-Ingredient Mouthwash/Gargle (Magic Mouthwash) 10 ml PRN QID PRN PO MOUTH PAIN Last administered on 05/08/17 10:12; Start 05/07/17 at 09:00 Nystatin 5 ml [id number] Last administered on 05/09/17 09:11; Start at 13:00 Potassium Chloride/Dextrose/ Sod Cl 1,000 ml @ 75 mls/hr [id number] IV ; Start at 14:00; Stop 05/08/17 at 16:37; Status DC Potassium Chloride (Klor-Con) 40 meq 1X ONCE PO Last administered on 14:12; Start 05/08/17 at 14:00; Stop 05/08/17 at 14:01; Status DC Amiodarone HCl 900 mg/Dextrose 518 ml @ 34.53 mls/ hr CONT PRN IV SEE I/O RECORD; Start 05/08/17 at 14:45 Amiodarone HCl 900 mg/Dextrose 518 ml @ 0 mls/hr CONT PRN IV SEE I/O RECORD; Start 05/08/17 at 14:45; Status UNV Sodium Chloride 500 ml @ 500 mls/hr 1X ONCE IV Last administered on 15:30; Start 05/08/17 at 15:30; Stop 05/08/17 at 16:29; Status DC Sodium Bicarbonate 100 meq 1X ONCE IV Last administered on 05/08/17 16:52; Start 05/08/17 at 15:30; Stop 05/08/17 at 15:31; Status DC Magnesium Sulfate/ Dextrose 100 ml @ 100 mls/hr 1X ONCE IV Last administered on 05/08/17 16:00; Start 05/08/17 at 16:00; Stop 05/08/17 at 16:59; Status DC Magnesium Sulfate/ Dextrose 100 ml @ 100 mls/hr 1X ONCE IV Last administered on 05/08/17 16:00; Start 05/08/17 at 16:00; Stop 05/08/17 at 16:59; Status DC Potassium Chloride (Klor-Con) 40 meq [id number] PO ; Start 05/09/17 at 08:00; Stop 05/09/17 at 08:17; Status DC Potassium Chloride (Klor-Con) 40 meq 1X ONCE PO Last administered on 16:53; Start 05/08/17 at 17:00; Stop 05/08/17 at 17:01; Status DC Potassium Chloride/Sodium Chloride 1,000 ml @ 80 mls/hr [id number] IV Last administered on 05/09/17 05:49; Start 05/08/17 at 17:30 Amiodarone HCl 150 mg/Dextrose 103 ml @ 618 mls/hr 1X ONCE IV Last administered on 05/09/17 07:22; Start 05/09/17 at 07:00; Stop 05/09/17 at 07 :09; Status DC Magnesium Sulfate/ Dextrose 50 ml @ 25 mls/hr 1X ONCE IV Last administered on 05/09/17 07:11; Start 05/09/17 at 07:00; Stop 05/09/17 at 08:59; Status DC Potassium Chloride 50 ml @ 25 mls/hr PRN Q2HRS PRN IV K-3.1 TO 3.5 Last administered on 05/09/17 11:44; Start 05/09/17 at 06:45; Stop 05/09/17 at 11 :44; Status DC Potassium Chloride 50 ml @ 25 mls/hr PRN Q2HRS PRN IV K 2.6 TO 3; Start at 06:45 Potassium Chloride 50 ml @ 25 mls/hr PRN Q2HRS PRN IV FOR K<2.6; Start at 08:00 Magnesium Sulfate/ Dextrose 100 ml @ 50 mls/hr PRN DAILY PRN IV MAG<1.8; Start 05/09/17 at 09:00 Potassium Chloride 50 ml @ 50 mls/hr Q1H IV ; Start 05/09/17 at 08:15; Stop at 10:14; Status Cancel Potassium Chloride 50 ml @ 50 mls/hr DAILY IV ; Start 05/10/17 at 09:00; Stop 05/11/17 at 09:59 Potassium Chloride 50 ml @ 50 mls/hr Q1H IV Last administered on 05/09/17 10: 00; Start 05/09/17 at 09:00; Stop 05/09/17 at 10:59; Status DC Potassium Chloride (Klor-Con) 40 meq 1X ONCE PO ; Start 05/09/17 at 11:00; Stop 05/09/17 at 11:01; Status DC Potassium Chloride/Dextrose/ Sod Cl 1,000 ml @ 75 mls/hr [id number] IV Last administered on 05/09/17 11:43; Start 05/09/17 at 11:00 Calcium Gluconate (Calcium Gluconate) 1,000 mg 1X ONCE IVP ; Start 05/09/17 at 14:00; Stop 05/09/17 at 14:01; Status DC Info 1 each PRN DAILY PRN MC SEE COMMENTS; Start 05/09/17 at 13:45 Amiodarone HCl 150 mg/Dextrose 103 ml @ 618 mls/hr 1X ONCE IV ; Start at 14:00; Stop 05/09/17 at 14:09; Status DC Amiodarone HCl (Cordarone) 400 mg BID PO ; Start 05/09/17 at 21:00 Sodium Chloride 90 meq/Potassium Chloride 50 meq/ Potassium Phosphate 13.6 mmol/ Magnesium Sulfate 10 meq/ Calcium Gluconate 10 meq/ Multivitamins 10 ml/Chromium / Copper/Manganese/ Seleni/Zn 1 ml/ Total Parenteral Nutrition/Amino Acids/ Dextrose/ Fat Emulsion Intravenous 1,387.0013 ml @ 3.625 mls/hr TPN CONT IV ; Start 05/09/17 at 22:00; Status UNV Active Scripts Active Reported Levofloxacin 500 Mg Tablet 500 Mg PO DAILY Tramadol Hcl 50 Mg Tablet 50 Mg PO Q6H PRN Ondansetron Hcl 4 Mg Tablet 8 Mg PO BID PRN [place] 5-325 Tablet (Acetaminophen/Hydrocodone Bitart) 1 Each Tablet 1-2 Tab PO Q4HRS PRN Atorvastatin Calcium 40 Mg Tablet 1 Tab PO DAILY Metoprolol Tartrate 25 Mg Tablet 1 Tab PO BID Pantoprazole Sodium 40 Mg Tablet.dr 1 Tab PO DAILY Diazepam 5 Mg Tablet 5 Mg PO TID Venlafaxine Hcl Er (Venlafaxine Hcl) 75 Mg Cap.er.24h 75 Mg PO DAILY Synthroid (Levothyroxine Sodium) 75 Mcg Tablet 75 Mcg PO DAILYAC Allergies Allergies: Coded Allergies: codeine (Verified Adverse Reaction, Intermediate, Patient states hallucinations, 10/19/16) Physical Exam General: Alert, Oriented X3 HEENT: PERRLA Lungs: Other (breath sounds are decreased, diffuse crackles) Heart: Regular rate, Normal S1, Normal S2, Other (soft rub was heard) Abdomen: Normal bowel sounds, Soft Extremities: No edema Vitals VITALS Vital Signs Date Time Temp Pulse Resp B/P (MAP) Pulse Ox O2 Delivery O2 Flow Rate FiO2 05/09/17 12:00 97.7 59 27 123/45 (71) 91 Room Air 97.7 05/09/17 09:00 4.0 Labs Labs Laboratory Tests Test 05/08/17 06:30 05/08/17 08:17 05/08/17 14:42 05/08/17 15:10 Sodium Level 138 mmol/L (136-145) 143 mmol/L (136-145) Potassium Level 3.0 mmol/L (3.5-5.1) 2.5 mmol/L (3.5-5.1) Chloride Level 108 mmol/L (98-107) 108 mmol/L (98-107) Carbon Dioxide Level 20 mmol/L (21-32) 22 mmol/L (21-32) Anion Gap 10 (6-14) 13 (6-14) Blood Urea Nitrogen 16 mg/dL (7-20) 14 mg/dL (7-20) Creatinine 1.0 mg/dL (0.6-1.0) 1.1 mg/dL (0.6-1.0) Estimated GFR (Cockcroft-Gault) 54.2 48.6 BUN/Creatinine Ratio 16 (6-20) 13 (6-20) Glucose Level 84 mg/dL (70-99) 220 mg/dL (70-99) Calcium Level 8.0 mg/dL (8.5-10.1) 7.3 mg/dL (8.5-10.1) Total Bilirubin 0.3 mg/dL (0.2-1.0) 0.4 mg/dL (0.2-1.0) Aspartate Amino Transf (AST/SGOT) 22 U/L (15-37) 114 U/L (15-37) Alanine Aminotransferase (ALT/SGPT) 9 U/L (14-59) 67 U/L (14-59) Alkaline Phosphatase 69 U/L (46-116) 71 U/L (46-116) Total Protein 5.9 g/dL (6.4-8.2) 4.9 g/dL (6.4-8.2) Albumin 2.4 g/dL (3.4-5.0) 2.0 g/dL (3.4-5.0) Albumin/Globulin Ratio 0.7 (1.0-1.7) 0.7 (1.0-1.7) White Blood Count 1.5 x10^3/uL (4.0-11.0) 4.0 x10^3/uL (4.0-11.0) Red Blood Count 2.83 x10^6/uL (3.50-5.40) 2.82 x10^6/uL (3.50-5.40) Hemoglobin 9.5 g/dL (12.0-15.5) 9.3 g/dL (12.0-15.5) Hematocrit 28.0 % (36.0-47.0) 27.4 % (36.0-47.0) Mean Corpuscular Volume 99 fL (79-100) 97 fL (79-100) Mean Corpuscular Hemoglobin 34 pg (25-35) 33 pg (25-35) Mean Corpuscular Hemoglobin Concent 34 g/dL (31-37) 34 g/dL (31-37) Red Cell Distribution Width 20.4 % (11.5-14.5) 20.0 % (11.5-14.5) Platelet Count 18 x10^3/uL (140-400) 20 x10^3/uL (140-400) Neutrophils (%) (Auto) 38 % (31-73) Lymphocytes (%) (Auto) 43 % (24-48) Monocytes (%) (Auto) 16 % (0-9) Eosinophils (%) (Auto) 2 % (0-3) Basophils (%) (Auto) 1 % (0-3) Neutrophils # (Auto) 0.6 x10^3uL (1.8-7.7) Lymphocytes # (Auto) 0.7 x10^3/uL (1.0-4.8) Monocytes # (Auto) 0.2 x10^3/uL (0.0-1.1) Eosinophils # (Auto) 0.0 x10^3/uL (0.0-0.7) Basophils # (Auto) 0.0 x10^3/uL (0.0-0.2) Segmented Neutrophils % 33 % (35-66) Band Neutrophils % 2 % (0-9) Lymphocytes % 48 % (24-48) Atypical Lymphocytes % (Manual) 1 % (0-0) Monocytes % 14 % (0-10) Eosinophils % 1 % (0-5) Basophils % 1 % (0-3) Platelet Estimate Decreased (ADEQUATE) Poikilocytosis Slight Anisocytosis Mod Tear Drop Cells Few Ovalocytes Few O2 Saturation 89 % (92-99) Arterial Blood pH 7.28 (7.35-7.45) Arterial Blood pCO2 at Patient Temp 23 mmHg (35-46) Arterial Blood pO2 at Patient Temp 61 mmHg (65-108) Arterial Blood HCO3 10 mmol/L (21-28) Arterial Blood Base Excess -15 mmol/L (-3-3) FiO2 100 Magnesium Level 2.1 mg/dL (1.8-2.4) Thyroid Stimulating Hormone (TSH) 14.213 uIU/mL (0.358-3.74) Test 05/08/17 16:00 05/09/17 06:00 O2 Saturation 99 % (92-99) Arterial Blood pH 7.41 (7.35-7.45) Arterial Blood pCO2 at Patient Temp 29 mmHg (35-46) Arterial Blood pO2 at Patient Temp 209 mmHg (65-108) Arterial Blood HCO3 18 mmol/L (21-28) Arterial Blood Base Excess -6 mmol/L (-3-3) FiO2 100% White Blood Count 1.4 x10^3/uL (4.0-11.0) Red Blood Count 2.44 x10^6/uL (3.50-5.40) Hemoglobin 8.0 g/dL (12.0-15.5) Hematocrit 23.9 % (36.0-47.0) Mean Corpuscular Volume 98 fL (79-100) Mean Corpuscular Hemoglobin 33 pg (25-35) Mean Corpuscular Hemoglobin Concent 34 g/dL (31-37) Red Cell Distribution Width 20.4 % (11.5-14.5) Platelet Count 14 x10^3/uL (140-400) Sodium Level 140 mmol/L (136-145) Potassium Level 3.3 mmol/L (3.5-5.1) Chloride Level 111 mmol/L (98-107) Carbon Dioxide Level 20 mmol/L (21-32) Anion Gap 9 (6-14) Blood Urea Nitrogen 12 mg/dL (7-20) Creatinine 0.9 mg/dL (0.6-1.0) Estimated GFR (Cockcroft-Gault) 61.2 BUN/Creatinine Ratio 13 (6-20) Glucose Level 99 mg/dL (70-99) Calcium Level 7.4 mg/dL (8.5-10.1) Phosphorus Level 1.9 mg/dL (2.6-4.7) Magnesium Level 1.7 mg/dL (1.8-2.4) Total Bilirubin 0.4 mg/dL (0.2-1.0) Aspartate Amino Transf (AST/SGOT) 81 U/L (15-37) Alanine Aminotransferase (ALT/SGPT) 50 U/L (14-59) Alkaline Phosphatase 70 U/L (46-116) Total Protein 5.1 g/dL (6.4-8.2) Albumin 2.2 g/dL (3.4-5.0) Albumin/Globulin Ratio 0.8 (1.0-1.7) Laboratory Tests Test 05/08/17 14:42 05/08/17 15:10 05/08/17 16:00 05/09/17 06:00 O2 Saturation 89 % (92-99) 99 % (92-99) Arterial Blood pH 7.28 (7.35-7.45) 7.41 (7.35-7.45) Arterial Blood pCO2 at Patient Temp 23 mmHg (35-46) 29 mmHg (35-46) Arterial Blood pO2 at Patient Temp 61 mmHg (65-108) 209 mmHg (65-108) Arterial Blood HCO3 10 mmol/L (21-28) 18 mmol/L (21-28) Arterial Blood Base Excess -15 mmol/L (-3-3) -6 mmol/L (-3-3) FiO2 100 100% White Blood Count 4.0 x10^3/uL (4.0-11.0) 1.4 x10^3/uL (4.0-11.0) Red Blood Count 2.82 x10^6/uL (3.50-5.40) 2.44 x10^6/uL (3.50-5.40) Hemoglobin 9.3 g/dL (12.0-15.5) 8.0 g/dL (12.0-15.5) Hematocrit 27.4 % (36.0-47.0) 23.9 % (36.0-47.0) Mean Corpuscular Volume 97 fL (79-100) 98 fL (79-100) Mean Corpuscular Hemoglobin 33 pg (25-35) 33 pg (25-35) Mean Corpuscular Hemoglobin Concent 34 g/dL (31-37) 34 g/dL (31-37) Red Cell Distribution Width 20.0 % (11.5-14.5) 20.4 % (11.5-14.5) Platelet Count 20 x10^3/uL (140-400) 14 x10^3/uL (140-400) Sodium Level 143 mmol/L (136-145) 140 mmol/L (136-145) Potassium Level 2.5 mmol/L (3.5-5.1) 3.3 mmol/L (3.5-5.1) Chloride Level 108 mmol/L (98-107) 111 mmol/L (98-107) Carbon Dioxide Level 22 mmol/L (21-32) 20 mmol/L (21-32) Anion Gap 13 (6-14) 9 (6-14) Blood Urea Nitrogen 14 mg/dL (7-20) 12 mg/dL (7-20) Creatinine 1.1 mg/dL (0.6-1.0) 0.9 mg/dL (0.6-1.0) Estimated GFR (Cockcroft-Gault) 48.6 61.2 BUN/Creatinine Ratio 13 (6-20) 13 (6-20) Glucose Level 220 mg/dL (70-99) 99 mg/dL (70-99) Calcium Level 7.3 mg/dL (8.5-10.1) 7.4 mg/dL (8.5-10.1) Magnesium Level 2.1 mg/dL (1.8-2.4) 1.7 mg/dL (1.8-2.4) Total Bilirubin 0.4 mg/dL (0.2-1.0) 0.4 mg/dL (0.2-1.0) Aspartate Amino Transf (AST/SGOT) 114 U/L (15-37) 81 U/L (15-37) Alanine Aminotransferase (ALT/SGPT) 67 U/L (14-59) 50 U/L (14-59) Alkaline Phosphatase 71 U/L (46-116) 70 U/L (46-116) Total Protein 4.9 g/dL (6.4-8.2) 5.1 g/dL (6.4-8.2) Albumin 2.0 g/dL (3.4-5.0) 2.2 g/dL (3.4-5.0) Albumin/Globulin Ratio 0.7 (1.0-1.7) 0.8 (1.0-1.7) Thyroid Stimulating Hormone (TSH) 14.213 uIU/mL (0.358-3.74) Phosphorus Level 1.9 mg/dL (2.6-4.7) Assessment/Plan Assessment/Plan This patient is post code with a metabolic acidosis and electrolyte imbalance. From a cardiac standpoint will continue to give her the amiodarone and check labs. We'll get an echocardiogram to evaluate the left ventricular function. At this point she is having some difficulties with this swallowing SOME of the pills I would suggest to start her on TPN to help not only with nutrition but also to correct the electrolyte imbalances. Every very much for asking me to participate in the care of this patient NEO ASHRAF MD May 09, 2017 14:29
[2017-05-09] MEDS: TPN PER PHARMACY MC PRN (14:35)
[2017-05-09 14:51] LABS: CALCIUM 7.5 mg/dL (8.5-10.1); GFR 54.2; MAGNESIUM 1.9 mg/dL (1.8-2.4); PHOSPHORUS 1.1 mg/dL (2.6-4.7); POTASSIUM 4.7 mmol/L (3.5-5.1)
[2017-05-09] MEDS ORDERED: PROCAINAMIDE IV ONE (15:30)
[2017-05-09] MEDS ORDERED: DEXTROSE 5% IV ONE (15:30)
[2017-05-09] MEDS ORDERED: PROCAINAMIDE 2,000 MG in IV DEXTROSE 5% 500 ML IV PRN (15:45)
[2017-05-09] MEDS: PROCAINAMIDE 2,000 MG in IV DEXTROSE 5% 500 ML IV PRN (15:49)
--- NOTE | 2017-05-09 16:50 | PDOC ---
PULMONARY PROGRESS NOTES Subjective PT S/P CODE FOR V TACH, DID NOT REQUIRE INTUBATION Vitals Vital Signs Date Time Temp Pulse Resp B/P (MAP) Pulse Ox O2 Delivery O2 Flow Rate FiO2 05/09/17 16:00 Room Air 05/09/17 16:00 122/58 (79) 05/09/17 15:00 58 25 93 05/09/17 12:00 97.7 97.7 05/09/17 09:00 4.0 Lungs: Crackles Cardiovascular: S1, S2 Abdomen: Soft Neuro Exam: Alert Extremities: No Edema Skin: Warm Labs Laboratory Tests Test 05/08/17 06:30 05/08/17 08:17 05/08/17 14:42 05/08/17 15:10 Sodium Level 138 mmol/L (136-145) 143 mmol/L (136-145) Potassium Level 3.0 mmol/L (3.5-5.1) 2.5 mmol/L (3.5-5.1) Chloride Level 108 mmol/L (98-107) 108 mmol/L (98-107) Carbon Dioxide Level 20 mmol/L (21-32) 22 mmol/L (21-32) Anion Gap 10 (6-14) 13 (6-14) Blood Urea Nitrogen 16 mg/dL (7-20) 14 mg/dL (7-20) Creatinine 1.0 mg/dL (0.6-1.0) 1.1 mg/dL (0.6-1.0) Estimated GFR (Cockcroft-Gault) 54.2 48.6 BUN/Creatinine Ratio 16 (6-20) 13 (6-20) Glucose Level 84 mg/dL (70-99) 220 mg/dL (70-99) Calcium Level 8.0 mg/dL (8.5-10.1) 7.3 mg/dL (8.5-10.1) Total Bilirubin 0.3 mg/dL (0.2-1.0) 0.4 mg/dL (0.2-1.0) Aspartate Amino Transf (AST/SGOT) 22 U/L (15-37) 114 U/L (15-37) Alanine Aminotransferase (ALT/SGPT) 9 U/L (14-59) 67 U/L (14-59) Alkaline Phosphatase 69 U/L (46-116) 71 U/L (46-116) Total Protein 5.9 g/dL (6.4-8.2) 4.9 g/dL (6.4-8.2) Albumin 2.4 g/dL (3.4-5.0) 2.0 g/dL (3.4-5.0) Albumin/Globulin Ratio 0.7 (1.0-1.7) 0.7 (1.0-1.7) White Blood Count 1.5 x10^3/uL (4.0-11.0) 4.0 x10^3/uL (4.0-11.0) Red Blood Count 2.83 x10^6/uL (3.50-5.40) 2.82 x10^6/uL (3.50-5.40) Hemoglobin 9.5 g/dL (12.0-15.5) 9.3 g/dL (12.0-15.5) Hematocrit 28.0 % (36.0-47.0) 27.4 % (36.0-47.0) Mean Corpuscular Volume 99 fL (79-100) 97 fL (79-100) Mean Corpuscular Hemoglobin 34 pg (25-35) 33 pg (25-35) Mean Corpuscular Hemoglobin Concent 34 g/dL (31-37) 34 g/dL (31-37) Red Cell Distribution Width 20.4 % (11.5-14.5) 20.0 % (11.5-14.5) Platelet Count 18 x10^3/uL (140-400) 20 x10^3/uL (140-400) Neutrophils (%) (Auto) 38 % (31-73) Lymphocytes (%) (Auto) 43 % (24-48) Monocytes (%) (Auto) 16 % (0-9) Eosinophils (%) (Auto) 2 % (0-3) Basophils (%) (Auto) 1 % (0-3) Neutrophils # (Auto) 0.6 x10^3uL (1.8-7.7) Lymphocytes # (Auto) 0.7 x10^3/uL (1.0-4.8) Monocytes # (Auto) 0.2 x10^3/uL (0.0-1.1) Eosinophils # (Auto) 0.0 x10^3/uL (0.0-0.7) Basophils # (Auto) 0.0 x10^3/uL (0.0-0.2) Segmented Neutrophils % 33 % (35-66) Band Neutrophils % 2 % (0-9) Lymphocytes % 48 % (24-48) Atypical Lymphocytes % (Manual) 1 % (0-0) Monocytes % 14 % (0-10) Eosinophils % 1 % (0-5) Basophils % 1 % (0-3) Platelet Estimate Decreased (ADEQUATE) Poikilocytosis Slight Anisocytosis Mod Tear Drop Cells Few Ovalocytes Few O2 Saturation 89 % (92-99) Arterial Blood pH 7.28 (7.35-7.45) Arterial Blood pCO2 at Patient Temp 23 mmHg (35-46) Arterial Blood pO2 at Patient Temp 61 mmHg (65-108) Arterial Blood HCO3 10 mmol/L (21-28) Arterial Blood Base Excess -15 mmol/L (-3-3) FiO2 100 Magnesium Level 2.1 mg/dL (1.8-2.4) Thyroid Stimulating Hormone (TSH) 14.213 uIU/mL (0.358-3.74) Test 05/08/17 16:00 05/08/17 22:00 05/09/17 06:00 05/09/17 14:30 O2 Saturation 99 % (92-99) Arterial Blood pH 7.41 (7.35-7.45) Arterial Blood pCO2 at Patient Temp 29 mmHg (35-46) Arterial Blood pO2 at Patient Temp 209 mmHg (65-108) Arterial Blood HCO3 18 mmol/L (21-28) Arterial Blood Base Excess -6 mmol/L (-3-3) FiO2 100% Nasal Screen MRSA (PCR) Negative (Negative) White Blood Count 1.4 x10^3/uL (4.0-11.0) Red Blood Count 2.44 x10^6/uL (3.50-5.40) Hemoglobin 8.0 g/dL (12.0-15.5) Hematocrit 23.9 % (36.0-47.0) Mean Corpuscular Volume 98 fL (79-100) Mean Corpuscular Hemoglobin 33 pg (25-35) Mean Corpuscular Hemoglobin Concent 34 g/dL (31-37) Red Cell Distribution Width 20.4 % (11.5-14.5) Platelet Count 14 x10^3/uL (140-400) Sodium Level 140 mmol/L (136-145) 136 mmol/L (136-145) Potassium Level 3.3 mmol/L (3.5-5.1) 4.7 mmol/L (3.5-5.1) Chloride Level 111 mmol/L (98-107) 108 mmol/L (98-107) Carbon Dioxide Level 20 mmol/L (21-32) 18 mmol/L (21-32) Anion Gap 9 (6-14) 10 (6-14) Blood Urea Nitrogen 12 mg/dL (7-20) 9 mg/dL (7-20) Creatinine 0.9 mg/dL (0.6-1.0) 1.0 mg/dL (0.6-1.0) Estimated GFR (Cockcroft-Gault) 61.2 54.2 BUN/Creatinine Ratio 13 (6-20) Glucose Level 99 mg/dL (70-99) 132 mg/dL (70-99) Calcium Level 7.4 mg/dL (8.5-10.1) 7.5 mg/dL (8.5-10.1) Phosphorus Level 1.9 mg/dL (2.6-4.7) 1.1 mg/dL (2.6-4.7) Magnesium Level 1.7 mg/dL (1.8-2.4) 1.9 mg/dL (1.8-2.4) Total Bilirubin 0.4 mg/dL (0.2-1.0) Aspartate Amino Transf (AST/SGOT) 81 U/L (15-37) Alanine Aminotransferase (ALT/SGPT) 50 U/L (14-59) Alkaline Phosphatase 70 U/L (46-116) Total Protein 5.1 g/dL (6.4-8.2) Albumin 2.2 g/dL (3.4-5.0) Albumin/Globulin Ratio 0.8 (1.0-1.7) Laboratory Tests Test 05/08/17 22:00 05/09/17 06:00 05/09/17 14:30 Nasal Screen MRSA (PCR) Negative (Negative) White Blood Count 1.4 x10^3/uL (4.0-11.0) Red Blood Count 2.44 x10^6/uL (3.50-5.40) Hemoglobin 8.0 g/dL (12.0-15.5) Hematocrit 23.9 % (36.0-47.0) Mean Corpuscular Volume 98 fL (79-100) Mean Corpuscular Hemoglobin 33 pg (25-35) Mean Corpuscular Hemoglobin Concent 34 g/dL (31-37) Red Cell Distribution Width 20.4 % (11.5-14.5) Platelet Count 14 x10^3/uL (140-400) Sodium Level 140 mmol/L (136-145) 136 mmol/L (136-145) Potassium Level 3.3 mmol/L (3.5-5.1) 4.7 mmol/L (3.5-5.1) Chloride Level 111 mmol/L (98-107) 108 mmol/L (98-107) Carbon Dioxide Level 20 mmol/L (21-32) 18 mmol/L (21-32) Anion Gap 9 (6-14) 10 (6-14) Blood Urea Nitrogen 12 mg/dL (7-20) 9 mg/dL (7-20) Creatinine 0.9 mg/dL (0.6-1.0) 1.0 mg/dL (0.6-1.0) Estimated GFR (Cockcroft-Gault) 61.2 54.2 BUN/Creatinine Ratio 13 (6-20) Glucose Level 99 mg/dL (70-99) 132 mg/dL (70-99) Calcium Level 7.4 mg/dL (8.5-10.1) 7.5 mg/dL (8.5-10.1) Phosphorus Level 1.9 mg/dL (2.6-4.7) 1.1 mg/dL (2.6-4.7) Magnesium Level 1.7 mg/dL (1.8-2.4) 1.9 mg/dL (1.8-2.4) Total Bilirubin 0.4 mg/dL (0.2-1.0) Aspartate Amino Transf (AST/SGOT) 81 U/L (15-37) Alanine Aminotransferase (ALT/SGPT) 50 U/L (14-59) Alkaline Phosphatase 70 U/L (46-116) Total Protein 5.1 g/dL (6.4-8.2) Albumin 2.2 g/dL (3.4-5.0) Albumin/Globulin Ratio 0.8 (1.0-1.7) Medications Active Scripts Medications Dose Route/Sig Max Daily Dose Days Date Category Levofloxacin 500 Mg Tablet 500 Mg PO DAILY 05/05/17 Reported Tramadol Hcl 50 Mg Tablet 50 Mg PO Q6H PRN 05/05/17 Reported Ondansetron Hcl 4 Mg Tablet 8 Mg PO BID PRN 05/05/17 Reported [place] 5-325 Tablet (Acetaminophen/Hydrocodone Bitart) 1 Each Tablet 1-2 Tab PO Q4HRS PRN 10/19/16 Reported Atorvastatin Calcium 40 Mg Tablet 1 Tab PO DAILY 10/18/15 Reported Metoprolol Tartrate 25 Mg Tablet 1 Tab PO BID 10/18/15 Reported Pantoprazole Sodium 40 Mg Tablet.dr 1 Tab PO DAILY 04/26/15 Reported Diazepam 5 Mg Tablet 5 Mg PO TID 03/07/15 Reported Venlafaxine Hcl Er (Venlafaxine Hcl) 75 Mg Cap.er.24h 75 Mg PO DAILY 03/07/15 Reported Synthroid (Levothyroxine Sodium) 75 Mcg Tablet 75 Mcg PO DAILYAC 03/07/15 Reported Impression . 1. Progressive dyspnea, multifactorial secondary to weakness from her recent chemotherapy and toxicities/ NEW CM EF 25 % 2. Stage 4 Colon cancer. 3. Leukopenia secondary to chemotherapy. 4. Thrombocytopenia. 5. Acute renal failure, suspect vasomotor nephropathy. 6. Urinary tract infection. 7. Protein malnutrition present upon admission. 8. CODE JOSEPH V TACH PER DR ASHRAF Plan . PT NOT TO BE INTUBATED ONLY CHEMICAL CODE SPOKE WITH DR MIRZA PROGNOSIS IS POOR FOLLOW HEME INPUT JEFF FISCHER MD May 09, 2017 16:50
[2017-05-09] MEDS ORDERED: SODIUM PHOSPHATE 30 MMOL in IV DEXTROSE 5% 250 ML IV ONE (17:45)
[2017-05-09] MEDS ORDERED: SODIUM PHOSPHATE 20 MMOL in IV DEXTROSE 5% 250 ML IV ONE (17:45)
[2017-05-09] MEDS: cefTRIAXone IV Push 1 GM VIAL. IVP SCH (18:10)
[2017-05-09] MEDS: AMIODARONE HCL 200 MG TABLET. PO SCH (21:00)
[2017-05-09] MEDS ORDERED: [UNRECOGNIZED DRUG - OTHER] IV SCH ×10 (22:00)
[2017-05-09] MEDS ORDERED: TOTAL PARENTERAL NUTRITION IV SCH ×20 (22:00)
[2017-05-09] MEDS ORDERED: [UNRECOGNIZED DRUG - OTHER] IV SCH ×10 (22:00)
[2017-05-09] MEDS ORDERED: AMINO ACIDS IV SCH ×20 (22:00)
[2017-05-09] MEDS ORDERED: DEXTROSE 70% IV SCH ×20 (22:00)
[2017-05-09] MEDS ORDERED: EPINEPHrine SYRINGE 1 MG/10 ML SYRINGE ONE (23:00)
[2017-05-09] MEDS ORDERED: AMIODARONE 150 MG/3 ML VIAL ONE (23:00)
[2017-05-09] MEDS ORDERED: LIDOCAINE 2% 100 MG/5 ML SYRINGE. ONE (23:00)
[2017-05-09] MEDS ORDERED: MAGNESIUM SULFATE PREMIX 1 GM/100 ML BAG. IV ONE (23:00)
[2017-05-09] MEDS ORDERED: ATROPINE 0.5 MG/5 ML DISP.SYRIN. ONE (23:00)
[2017-05-10] VITALS (25 sets, daily range): BP systolic 110–176; BP diastolic 54–88
[2017-05-10] MEDS: POTASSIUM CL 20MEQ D5-0.45NACL 1,000 ML IV SCH ×2 (01:57→17:58)
[2017-05-10] MEDS ORDERED: MAGNESIUM SULFATE 1GM 100 ML IV ONE (02:00)
[2017-05-10] MEDS ORDERED: MIDAZOLAM HCL/PF 2 MG/2 ML VIAL. IV PRN ×2 (02:30)
[2017-05-10] MEDS ORDERED: AMIODARONE 900 MG in IV DEXTROSE 5% 500 ML IV PRN (03:45)
[2017-05-10] MEDS: LIDOCAINE 2GM/500ML PREMIX 500 ML IV PRN (04:15)
[2017-05-10] MEDS ORDERED: LIDOCAINE 2% 100 MG/5 ML SYRINGE. IV ONE (04:30)
[2017-05-10 06:38] LABS: HEMATOCRIT 25.8 % (36.0-47.0); HEMOGLOBIN 8.8 g/dL (12.0-15.5); RED BLOOD COUNT 2.59 x10^6/uL (3.50-5.40); RED CELL DISTRIBUTION WIDTH 20.8 % (11.5-14.5); WHITE BLOOD COUNT 2.4 x10^3/uL (4.0-11.0)
[2017-05-10 06:43] LABS: MAGNESIUM 2.2 mg/dL (1.8-2.4); PHOSPHORUS 1.9 mg/dL (2.6-4.7)
[2017-05-10 06:45] LABS: ALBUMIN 2.1 g/dL (3.4-5.0); ALBUMIN/GLOBULIN RATIO 0.6 (1.0-1.7); CALCIUM 7.5 mg/dL (8.5-10.1); CREATININE 0.9 mg/dL (0.6-1.0); GFR 61.2; POTASSIUM 3.6 mmol/L (3.5-5.1); TOTAL BILIRUBIN 0.3 mg/dL (0.2-1.0); TOTAL PROTEIN 5.4 g/dL (6.4-8.2)
[2017-05-10] MEDS: AMIODARONE HCL 200 MG TABLET. PO SCH ×2 (07:48→21:00)
--- NOTE | 2017-05-10 07:58 | PDOC ---
Infectious Disease Note Subjective Subjective pt feeling ok, ROS ROS GEN: Denies fevers, chills, sweats HEENT: Denies sore throat CV: Denies chest pain RESP: Denies shortness of air, cough GI: Denies n/v NEURO: Denies confusion, dizziness MSK: Denies weakness, joint pain/swelling Vital Sign Vital Signs Vital Signs Date Time Temp Pulse Resp B/P (MAP) Pulse Ox O2 Delivery O2 Flow Rate FiO2 05/10/17 06:00 65 20 142/64 (90) 96 Nasal Cannula 2.0 05/10/17 04:00 98.4 98.4 Physical Exam PHYSICAL EXAM GENERAL: NAD, Alert HEENT: PERRL, OC/OP -dry NECK: Supple, no JVD, no LN LUNGS: Clear. on 02 HEART: S1S2, no gallop, no murmur ABD: Soft, NT, no organomegaly, no rebound, Ostomy [place] EXT: No edema, no cyanosis [employer]: Alert, oriented x 3, no focal neurologic deficit SKIN: No rash IV: Port left chest - clean Labs Lab Laboratory Tests Test 05/09/17 14:30 05/10/17 06:10 Sodium Level 136 mmol/L (136-145) 134 mmol/L (136-145) Potassium Level 4.7 mmol/L (3.5-5.1) 3.6 mmol/L (3.5-5.1) Chloride Level 108 mmol/L (98-107) 105 mmol/L (98-107) Carbon Dioxide Level 18 mmol/L (21-32) 19 mmol/L (21-32) Anion Gap 10 (6-14) 10 (6-14) Blood Urea Nitrogen 9 mg/dL (7-20) 6 mg/dL (7-20) Creatinine 1.0 mg/dL (0.6-1.0) 0.9 mg/dL (0.6-1.0) Estimated GFR (Cockcroft-Gault) 54.2 61.2 Glucose Level 132 mg/dL (70-99) 154 mg/dL (70-99) Calcium Level 7.5 mg/dL (8.5-10.1) 7.5 mg/dL (8.5-10.1) Phosphorus Level 1.1 mg/dL (2.6-4.7) 1.9 mg/dL (2.6-4.7) Magnesium Level 1.9 mg/dL (1.8-2.4) 2.2 mg/dL (1.8-2.4) White Blood Count 2.4 x10^3/uL (4.0-11.0) Red Blood Count 2.59 x10^6/uL (3.50-5.40) Hemoglobin 8.8 g/dL (12.0-15.5) Hematocrit 25.8 % (36.0-47.0) Mean Corpuscular Volume 100 fL (79-100) Mean Corpuscular Hemoglobin 34 pg (25-35) Mean Corpuscular Hemoglobin Concent 34 g/dL (31-37) Red Cell Distribution Width 20.8 % (11.5-14.5) Platelet Count 25 x10^3/uL (140-400) BUN/Creatinine Ratio 7 (6-20) Total Bilirubin 0.3 mg/dL (0.2-1.0) Aspartate Amino Transf (AST/SGOT) 56 U/L (15-37) Alanine Aminotransferase (ALT/SGPT) 39 U/L (14-59) Alkaline Phosphatase 73 U/L (46-116) Total Protein 5.4 g/dL (6.4-8.2) Albumin 2.1 g/dL (3.4-5.0) Albumin/Globulin Ratio 0.6 (1.0-1.7) Objective Assessment S/p code 05/09 - V - tach s/p shock now on Lidocaine/Procaine/Amiodarone Fever, chills prior to admit bronchitis possible early pneumonia Pyruia and dysuria Mucositis dysphagia History of colon cancer stage 4, status post surgery and recently on chemotherapy. Neutropenia and thrombocytopenia from chemo.- improved Oral mucositis. Renal insufficiency. Hyperlipidemia. Hypertension. Degenerative joint disease. Hypothyroidism. Plan Plan of Care 1. Continue Rocephin and doxycycline 2. continue acyclovir 3 supportive care 4.pulm and oncology following Follow up labs/culture and susceptibility results. d/w family DANIEL FORD MD May 10, 2017 07:58
[2017-05-10] MEDS: DOXYCYCLINE HYCLATE 100 MG TABLET PO SCH ×2 (08:24→21:00)
[2017-05-10] MEDS: ACYCLOVIR 200 MG CAPSULE. PO SCH ×3 (08:24→21:00)
[2017-05-10] MEDS: NYSTATIN 100,000 UNITS/ML 5 ML ORAL.SUSP. SWSW SCH ×4 (08:24→21:00)
[2017-05-10] MEDS: diazePAM 5 MG TABLET PO SCH ×3 (08:24→21:00)
[2017-05-10] MEDS: LEVOTHYROXINE 75 MCG TABLET PO SCH (08:24)
[2017-05-10] MEDS: POTASSIUM CHLORIDE 20MEQ 50 ML IV SCH (08:24)
[2017-05-10] MEDS: PANTOPRAZOLE 40 MG TABLET.DR. PO SCH (08:25)
[2017-05-10] MEDS: METOPROLOL TART IMMED RELEASE 25 MG TABLET. PO SCH ×2 (08:25→21:00)
[2017-05-10] MEDS: VENLAFAXINE XR 37.5 MG CAP.ER.24H. PO SCH (08:25)
[2017-05-10] MEDS: ATORVASTATIN CALCIUM 40 MG TABLET. PO SCH (08:25)
--- NOTE | 2017-05-10 08:25 | PDOC ---
GENERAL General: vss and afebrile. awake and alert and feels much better. family in attendance. v -tach with cardioversion over weekend not controlled with amiodarone and now on lidocaine drip and improved. echo with ef of 27% and will need cath to rule out ischemic focus when blood counts better. wbc up to 2.5K this am and platelets up to 25K this am. chest clear and heart regular. abdomen benign. continue supportive care and will likely need a life vest at dc with plans for defibrillator at some point. Problems: VITAL SIGNS Vital Signs: Vital Signs Date Time Temp Pulse Resp B/P (MAP) Pulse Ox O2 Delivery O2 Flow Rate FiO2 05/10/17 06:00 65 20 142/64 (90) 96 Nasal Cannula 2.0 05/10/17 04:00 98.4 98.4 ALLERGIES Allergies: Allergies Coded Allergies Type Severity Reaction Last Updated Verified codeine Adverse Reaction Intermediate Patient states hallucinations 10/19/16 Yes MEDS Medications: Current Medications Medications (Trade) Dose Ordered Sig/Fannie Start Time Stop Time Status Last Admin Dose Admin Acyclovir (Zovirax) 400 mg [id number] 05/06/17 09:00 05/09/17 21:37 400 MG Amiodarone HCl (Cordarone) 400 mg BID 05/09/17 21:00 Amiodarone HCl 150 mg/Dextrose 103 ml @ 618 mls/hr 1X ONCE 05/09/17 14:00 05/09/17 14:09 DC 05/09/17 14:28 618 MLS/HR Amiodarone HCl 450 mg/Dextrose 259 ml @ 17.26 mls/ hr CONT PRN 05/10/17 04:00 Amiodarone HCl 900 mg/Dextrose 518 ml @ 0 mls/hr CONT PRN 05/10/17 03:45 UNV Atorvastatin Calcium (Lipitor) 40 mg DAILY 05/06/17 09:00 05/09/17 09:12 40 MG Calcium Gluconate (Calcium Gluconate) 1,000 mg 1X ONCE 05/09/17 14:00 05/09/17 14:01 DC 05/09/17 14:28 1,000 MG Ceftriaxone Sodium 1 gm/ Dextrose 50 ml @ 100 mls/hr Q24H 05/05/17 18:00 UNV Ceftriaxone Sodium (Rocephin) 1 gm Q24H 05/05/17 18:00 05/09/17 18:10 1 GM Diazepam (Valium) 5 mg TID 05/05/17 21:00 05/09/17 21:36 5 MG Doxycycline Hyclate (Vibra-Tab) 100 mg BID 05/06/17 14:00 05/09/17 21:36 100 MG Info 1 each PRN DAILY PRN 05/09/17 13:45 05/09/17 14:35 1 EACH Levothyroxine Sodium (Synthroid) 75 mcg DAILYAC 05/06/17 07:30 05/09/17 09:11 75 MCG Lidocaine HCl (Lidocaine HCl 2% Abboject) 100 mg 1X ONCE 05/10/17 04:30 05/10/17 04:31 DC 05/10/17 04:13 100 MG Lidocaine HCl/ Dextrose 500 ml @ 0 mls/hr CONT PRN 05/10/17 04:00 05/10/17 04:15 30 MLS/HR Magnesium Sulfate/ Dextrose 100 ml @ 100 mls/hr 1X ONCE 05/10/17 02:00 05/10/17 02:59 DC 05/10/17 01:48 100 MLS/HR Metoprolol Tartrate (Lopressor) 25 mg BID 05/05/17 21:00 05/08/17 08:25 25 MG Midazolam HCl (Versed) 2 mg PRN Q2HR PRN 05/10/17 02:30 Multi-Ingredient Mouthwash/Gargle (Magic Mouthwash) 10 ml PRN QID PRN 05/07/17 09:00 05/08/17 10:12 10 ML Nystatin 5 ml [id number] 05/07/17 13:00 05/09/17 09:11 5 ML Ondansetron HCl (Zofran Odt) 8 mg PRN Q12HRS PRN 05/05/17 18:30 05/08/17 22:46 8 MG Pantoprazole Sodium (Protonix) 40 mg DAILY 05/06/17 09:00 05/09/17 09:11 40 MG Potassium Chloride/Dextrose/ Sod Cl 1,000 ml @ 75 mls/hr [id number] 05/09/17 11:00 05/10/17 01:57 75 MLS/HR Potassium Chloride/Sodium Chloride 1,000 ml @ 80 mls/hr [id number] 05/08/17 17:30 05/09/17 18:27 DC 05/09/17 05:49 80 MLS/HR Potassium Chloride (Klor-Con) 40 meq 1X ONCE 05/09/17 11:00 05/09/17 11:01 DC Procainamide HCl 500 mg/Dextrose 55 ml @ 110 mls/hr 1X ONCE 05/09/17 15:30 05/09/17 15:59 DC 05/09/17 15:49 110 MLS/HR Procainamide HCl 2000 mg/Dextrose 520 ml @ 0 mls/hr CONT PRN 05/09/17 15:45 UNV Sodium Bicarbonate 100 meq 1X ONCE 05/08/17 15:30 05/08/17 15:31 DC 05/08/17 16:52 100 MEQ Sodium Chloride 90 meq/Potassium Acetate 70 meq/ Potassium Phosphate 18 mmol/ Magnesium Sulfate 12 meq/Calcium Gluconate 10 meq/ Multivitamins 10 ml/Chromium/ Copper/Manganese/ Seleni/Zn 1 ml/ Total Parenteral Nutrition/Amino Acids/Dextrose/ Fat Emulsion Intravenous 1,512 ml @ 63 mls/hr TPN CONT 05/09/17 22:00 05/10/17 21:59 05/09/17 21:39 63 MLS/HR Sodium Chloride 90 meq/Potassium Chloride 50 meq/ Potassium Phosphate 13.6 mmol/Magnesium Sulfate 10 meq/ Calcium Gluconate 10 meq/ Multivitamins 10 ml/Chromium/ Copper/Manganese/ Seleni/Zn 1 ml/ Total Parenteral Nutrition/Amino Acids/Dextrose/ Fat Emulsion Intravenous 1,387.0013 ml @ 3.625 mls/hr TPN CONT 05/09/17 22:00 UNV Sodium Phosphate 20 mmol/Dextrose 256.6667 ml @ 64.167 m... 1X ONCE 05/09/17 17:45 05/09/17 21:44 DC 05/09/17 18:10 64.167 MLS/HR Sodium Phosphate 30 mmol/Dextrose 260 ml @ 65 mls/hr 1X ONCE 05/09/17 17:45 05/09/17 21:44 Cancel Tramadol HCl (Ultram) 50 mg PRN Q6HRS PRN 05/05/17 18:15 Vancomycin HCl 1 each 1X ONCE 05/07/17 19:00 05/07/17 19:01 Cancel Vancomycin HCl (Vanco Per Pharmacy) 1 each PRN DAILY PRN 05/05/17 18:00 05/06/17 13:10 DC 05/06/17 12:53 1 EACH Vancomycin HCl 1.75 gm/Dextrose 500 ml @ 250 mls/hr 1X ONCE 05/05/17 18:30 05/05/17 20:29 DC 05/05/17 19:21 250 MLS/HR Vancomycin HCl 1 gm/Dextrose 250 ml @ 250 mls/hr Q24H 05/06/17 19:30 05/06/17 19:30 DC Venlafaxine HCl (Effexor Xr) 75 mg DAILY 05/06/17 09:00 05/09/17 09:11 75 MG LAB Lab: Laboratory Tests Test 05/09/17 14:30 05/10/17 06:10 Sodium Level 136 mmol/L (136-145) 134 mmol/L (136-145) Potassium Level 4.7 mmol/L (3.5-5.1) 3.6 mmol/L (3.5-5.1) Chloride Level 108 mmol/L (98-107) 105 mmol/L (98-107) Carbon Dioxide Level 18 mmol/L (21-32) 19 mmol/L (21-32) Anion Gap 10 (6-14) 10 (6-14) Blood Urea Nitrogen 9 mg/dL (7-20) 6 mg/dL (7-20) Creatinine 1.0 mg/dL (0.6-1.0) 0.9 mg/dL (0.6-1.0) Estimated GFR (Cockcroft-Gault) 54.2 61.2 Glucose Level 132 mg/dL (70-99) 154 mg/dL (70-99) Calcium Level 7.5 mg/dL (8.5-10.1) 7.5 mg/dL (8.5-10.1) Phosphorus Level 1.1 mg/dL (2.6-4.7) 1.9 mg/dL (2.6-4.7) Magnesium Level 1.9 mg/dL (1.8-2.4) 2.2 mg/dL (1.8-2.4) White Blood Count 2.4 x10^3/uL (4.0-11.0) Red Blood Count 2.59 x10^6/uL (3.50-5.40) Hemoglobin 8.8 g/dL (12.0-15.5) Hematocrit 25.8 % (36.0-47.0) Mean Corpuscular Volume 100 fL (79-100) Mean Corpuscular Hemoglobin 34 pg (25-35) Mean Corpuscular Hemoglobin Concent 34 g/dL (31-37) Red Cell Distribution Width 20.8 % (11.5-14.5) Platelet Count 25 x10^3/uL (140-400) BUN/Creatinine Ratio 7 (6-20) Total Bilirubin 0.3 mg/dL (0.2-1.0) Aspartate Amino Transf (AST/SGOT) 56 U/L (15-37) Alanine Aminotransferase (ALT/SGPT) 39 U/L (14-59) Alkaline Phosphatase 73 U/L (46-116) Total Protein 5.4 g/dL (6.4-8.2) Albumin 2.1 g/dL (3.4-5.0) Albumin/Globulin Ratio 0.6 (1.0-1.7) ZACK LOPEZ MD May 10, 2017 08:25
--- NOTE | 2017-05-10 10:54 | PDOC ---
PULMONARY PROGRESS NOTES Subjective PT S/P CODE FOR V TACH, HAD SHOCKED MULTIPLE TIMES Vitals Vital Signs Date Time Temp Pulse Resp B/P (MAP) Pulse Ox O2 Delivery O2 Flow Rate FiO2 05/10/17 08:25 64 143/69 05/10/17 06:00 20 96 Nasal Cannula 2.0 05/10/17 04:00 98.4 98.4 General: Lethargic Lungs: Clear Cardiovascular: S1, S2 Abdomen: Soft Extremities: No Edema Skin: Warm Labs Laboratory Tests Test 05/08/17 14:42 05/08/17 15:10 05/08/17 16:00 05/08/17 22:00 O2 Saturation 89 % (92-99) 99 % (92-99) Arterial Blood pH 7.28 (7.35-7.45) 7.41 (7.35-7.45) Arterial Blood pCO2 at Patient Temp 23 mmHg (35-46) 29 mmHg (35-46) Arterial Blood pO2 at Patient Temp 61 mmHg (65-108) 209 mmHg (65-108) Arterial Blood HCO3 10 mmol/L (21-28) 18 mmol/L (21-28) Arterial Blood Base Excess -15 mmol/L (-3-3) -6 mmol/L (-3-3) FiO2 100 100% White Blood Count 4.0 x10^3/uL (4.0-11.0) Red Blood Count 2.82 x10^6/uL (3.50-5.40) Hemoglobin 9.3 g/dL (12.0-15.5) Hematocrit 27.4 % (36.0-47.0) Mean Corpuscular Volume 97 fL (79-100) Mean Corpuscular Hemoglobin 33 pg (25-35) Mean Corpuscular Hemoglobin Concent 34 g/dL (31-37) Red Cell Distribution Width 20.0 % (11.5-14.5) Platelet Count 20 x10^3/uL (140-400) Sodium Level 143 mmol/L (136-145) Potassium Level 2.5 mmol/L (3.5-5.1) Chloride Level 108 mmol/L (98-107) Carbon Dioxide Level 22 mmol/L (21-32) Anion Gap 13 (6-14) Blood Urea Nitrogen 14 mg/dL (7-20) Creatinine 1.1 mg/dL (0.6-1.0) Estimated GFR (Cockcroft-Gault) 48.6 BUN/Creatinine Ratio 13 (6-20) Glucose Level 220 mg/dL (70-99) Calcium Level 7.3 mg/dL (8.5-10.1) Magnesium Level 2.1 mg/dL (1.8-2.4) Total Bilirubin 0.4 mg/dL (0.2-1.0) Aspartate Amino Transf (AST/SGOT) 114 U/L (15-37) Alanine Aminotransferase (ALT/SGPT) 67 U/L (14-59) Alkaline Phosphatase 71 U/L (46-116) Total Protein 4.9 g/dL (6.4-8.2) Albumin 2.0 g/dL (3.4-5.0) Albumin/Globulin Ratio 0.7 (1.0-1.7) Thyroid Stimulating Hormone (TSH) 14.213 uIU/mL (0.358-3.74) Nasal Screen MRSA (PCR) Negative (Negative) Test 05/09/17 06:00 05/09/17 14:30 05/10/17 06:10 White Blood Count 1.4 x10^3/uL (4.0-11.0) 2.4 x10^3/uL (4.0-11.0) Red Blood Count 2.44 x10^6/uL (3.50-5.40) 2.59 x10^6/uL (3.50-5.40) Hemoglobin 8.0 g/dL (12.0-15.5) 8.8 g/dL (12.0-15.5) Hematocrit 23.9 % (36.0-47.0) 25.8 % (36.0-47.0) Mean Corpuscular Volume 98 fL (79-100) 100 fL (79-100) Mean Corpuscular Hemoglobin 33 pg (25-35) 34 pg (25-35) Mean Corpuscular Hemoglobin Concent 34 g/dL (31-37) 34 g/dL (31-37) Red Cell Distribution Width 20.4 % (11.5-14.5) 20.8 % (11.5-14.5) Platelet Count 14 x10^3/uL (140-400) 25 x10^3/uL (140-400) Sodium Level 140 mmol/L (136-145) 136 mmol/L (136-145) 134 mmol/L (136-145) Potassium Level 3.3 mmol/L (3.5-5.1) 4.7 mmol/L (3.5-5.1) 3.6 mmol/L (3.5-5.1) Chloride Level 111 mmol/L (98-107) 108 mmol/L (98-107) 105 mmol/L (98-107) Carbon Dioxide Level 20 mmol/L (21-32) 18 mmol/L (21-32) 19 mmol/L (21-32) Anion Gap 9 (6-14) 10 (6-14) 10 (6-14) Blood Urea Nitrogen 12 mg/dL (7-20) 9 mg/dL (7-20) 6 mg/dL (7-20) Creatinine 0.9 mg/dL (0.6-1.0) 1.0 mg/dL (0.6-1.0) 0.9 mg/dL (0.6-1.0) Estimated GFR (Cockcroft-Gault) 61.2 54.2 61.2 BUN/Creatinine Ratio 13 (6-20) 7 (6-20) Glucose Level 99 mg/dL (70-99) 132 mg/dL (70-99) 154 mg/dL (70-99) Calcium Level 7.4 mg/dL (8.5-10.1) 7.5 mg/dL (8.5-10.1) 7.5 mg/dL (8.5-10.1) Phosphorus Level 1.9 mg/dL (2.6-4.7) 1.1 mg/dL (2.6-4.7) 1.9 mg/dL (2.6-4.7) Magnesium Level 1.7 mg/dL (1.8-2.4) 1.9 mg/dL (1.8-2.4) 2.2 mg/dL (1.8-2.4) Total Bilirubin 0.4 mg/dL (0.2-1.0) 0.3 mg/dL (0.2-1.0) Aspartate Amino Transf (AST/SGOT) 81 U/L (15-37) 56 U/L (15-37) Alanine Aminotransferase (ALT/SGPT) 50 U/L (14-59) 39 U/L (14-59) Alkaline Phosphatase 70 U/L (46-116) 73 U/L (46-116) Total Protein 5.1 g/dL (6.4-8.2) 5.4 g/dL (6.4-8.2) Albumin 2.2 g/dL (3.4-5.0) 2.1 g/dL (3.4-5.0) Albumin/Globulin Ratio 0.8 (1.0-1.7) 0.6 (1.0-1.7) Laboratory Tests Test 05/09/17 14:30 05/10/17 06:10 Sodium Level 136 mmol/L (136-145) 134 mmol/L (136-145) Potassium Level 4.7 mmol/L (3.5-5.1) 3.6 mmol/L (3.5-5.1) Chloride Level 108 mmol/L (98-107) 105 mmol/L (98-107) Carbon Dioxide Level 18 mmol/L (21-32) 19 mmol/L (21-32) Anion Gap 10 (6-14) 10 (6-14) Blood Urea Nitrogen 9 mg/dL (7-20) 6 mg/dL (7-20) Creatinine 1.0 mg/dL (0.6-1.0) 0.9 mg/dL (0.6-1.0) Estimated GFR (Cockcroft-Gault) 54.2 61.2 Glucose Level 132 mg/dL (70-99) 154 mg/dL (70-99) Calcium Level 7.5 mg/dL (8.5-10.1) 7.5 mg/dL (8.5-10.1) Phosphorus Level 1.1 mg/dL (2.6-4.7) 1.9 mg/dL (2.6-4.7) Magnesium Level 1.9 mg/dL (1.8-2.4) 2.2 mg/dL (1.8-2.4) White Blood Count 2.4 x10^3/uL (4.0-11.0) Red Blood Count 2.59 x10^6/uL (3.50-5.40) Hemoglobin 8.8 g/dL (12.0-15.5) Hematocrit 25.8 % (36.0-47.0) Mean Corpuscular Volume 100 fL (79-100) Mean Corpuscular Hemoglobin 34 pg (25-35) Mean Corpuscular Hemoglobin Concent 34 g/dL (31-37) Red Cell Distribution Width 20.8 % (11.5-14.5) Platelet Count 25 x10^3/uL (140-400) BUN/Creatinine Ratio 7 (6-20) Total Bilirubin 0.3 mg/dL (0.2-1.0) Aspartate Amino Transf (AST/SGOT) 56 U/L (15-37) Alanine Aminotransferase (ALT/SGPT) 39 U/L (14-59) Alkaline Phosphatase 73 U/L (46-116) Total Protein 5.4 g/dL (6.4-8.2) Albumin 2.1 g/dL (3.4-5.0) Albumin/Globulin Ratio 0.6 (1.0-1.7) Medications Active Scripts Medications Dose Route/Sig Max Daily Dose Days Date Category Levofloxacin 500 Mg Tablet 500 Mg PO DAILY 05/05/17 Reported Tramadol Hcl 50 Mg Tablet 50 Mg PO Q6H PRN 05/05/17 Reported Ondansetron Hcl 4 Mg Tablet 8 Mg PO BID PRN 05/05/17 Reported [place] 5-325 Tablet (Acetaminophen/Hydrocodone Bitart) 1 Each Tablet 1-2 Tab PO Q4HRS PRN 10/19/16 Reported Atorvastatin Calcium 40 Mg Tablet 1 Tab PO DAILY 10/18/15 Reported Metoprolol Tartrate 25 Mg Tablet 1 Tab PO BID 10/18/15 Reported Pantoprazole Sodium 40 Mg Tablet.dr 1 Tab PO DAILY 04/26/15 Reported Diazepam 5 Mg Tablet 5 Mg PO TID 03/07/15 Reported Venlafaxine Hcl Er (Venlafaxine Hcl) 75 Mg Cap.er.24h 75 Mg PO DAILY 03/07/15 Reported Synthroid (Levothyroxine Sodium) 75 Mcg Tablet 75 Mcg PO DAILYAC 03/07/15 Reported Impression . 1. Progressive dyspnea, multifactorial secondary to weakness from her recent chemotherapy and toxicities/ NEW CM EF 25 % 2. Stage 4 Colon cancer. 3. Leukopenia/ thrombocytopenia secondary to chemotherapy. 4. Thrombocytopenia. 5. Acute renal failure, 6. Urinary tract infection. 7. Protein malnutrition present upon admission. 8. CODE BLUE ,V- TACH PER DR ASHRAF 9. Mild interstitial edema Plan . PT NOT TO BE INTUBATED, ONLY CHEMICAL CODE SPOKE WITH DR MIRZA AND FAMILY PROGNOSIS IS POOR FOLLOW [facility] INPUT SUPPORTIVE CARE MG MCKENNA MD May 10, 2017 10:54
[2017-05-10] MEDS: AMIODARONE 450 MG in IV DEXTROSE 5% 250 ML IV PRN (12:50)
[2017-05-10] MEDS ORDERED: IV NORMAL SALINE 250ML 250 ML IV ONE (13:45)
[2017-05-10] MEDS ORDERED: LIDOCAINE 1% / SOD BICARB 8.4% 20 ML VIAL. IJ ONE ×2 (13:45)
[2017-05-10] MEDS ORDERED: POTASSIUM PHOSPHATE DIBASIC 13.6 MMOL in IV DEXTROSE 5% 100 ML IV ONE (14:00)
--- NOTE | 2017-05-10 14:11 | PDOC ---
PROGRESS NOTES Subjective Subjective HPI - Colon ca -s/p chemo 04/27/17. Admitted with toxicities. ROS - no CP Objective Objective Vital Signs Date Time Temp Pulse Resp B/P (MAP) Pulse Ox O2 Delivery O2 Flow Rate FiO2 05/10/17 13:54 97.4 46 16 122/60 (80) 94 Nasal Cannula 2.0 97.4 Intake and Output 05/10/17 07:00 Intake Total 4073.12 ml Output Total 2155 ml Balance 1918.12 ml Intake Oral 310 ml IV Total 3763.12 ml Output Urine Total 1460 ml Stool Total 695 ml Physical Exam Heart: Normal S1, Normal S2 General: Alert, Oriented X3 Lungs: Clear to auscultation Neuro: Normal speech Psych/Mental Status: Mental status NL Assessment Assessment Assessment 1. Colon ca -s/p chemo 04/27/17. Admitted with toxicities. 2. Urinary tract infection. Appreciate ID management. 3. Neutropenia and thrombocytopenia from chemo. Monitor cbc prn 4. Oral mucositis. cont magic mouthwash 5. had code on floor - was shocked 6 times and has had some brief torsades since being in ICU, not intubated and ok bp and feels ok. Management per Dr Fernando. Comment Review of Relevant I have reviewed the following items armida (where applicable) has been applied. Labs Laboratory Tests Test 05/08/17 14:42 05/08/17 15:10 05/08/17 16:00 05/08/17 22:00 O2 Saturation 89 % (92-99) 99 % (92-99) Arterial Blood pH 7.28 (7.35-7.45) 7.41 (7.35-7.45) Arterial Blood pCO2 at Patient Temp 23 mmHg (35-46) 29 mmHg (35-46) Arterial Blood pO2 at Patient Temp 61 mmHg (65-108) 209 mmHg (65-108) Arterial Blood HCO3 10 mmol/L (21-28) 18 mmol/L (21-28) Arterial Blood Base Excess -15 mmol/L (-3-3) -6 mmol/L (-3-3) FiO2 100 100% White Blood Count 4.0 x10^3/uL (4.0-11.0) Red Blood Count 2.82 x10^6/uL (3.50-5.40) Hemoglobin 9.3 g/dL (12.0-15.5) Hematocrit 27.4 % (36.0-47.0) Mean Corpuscular Volume 97 fL (79-100) Mean Corpuscular Hemoglobin 33 pg (25-35) Mean Corpuscular Hemoglobin Concent 34 g/dL (31-37) Red Cell Distribution Width 20.0 % (11.5-14.5) Platelet Count 20 x10^3/uL (140-400) Sodium Level 143 mmol/L (136-145) Potassium Level 2.5 mmol/L (3.5-5.1) Chloride Level 108 mmol/L (98-107) Carbon Dioxide Level 22 mmol/L (21-32) Anion Gap 13 (6-14) Blood Urea Nitrogen 14 mg/dL (7-20) Creatinine 1.1 mg/dL (0.6-1.0) Estimated GFR (Cockcroft-Gault) 48.6 BUN/Creatinine Ratio 13 (6-20) Glucose Level 220 mg/dL (70-99) Calcium Level 7.3 mg/dL (8.5-10.1) Magnesium Level 2.1 mg/dL (1.8-2.4) Total Bilirubin 0.4 mg/dL (0.2-1.0) Aspartate Amino Transf (AST/SGOT) 114 U/L (15-37) Alanine Aminotransferase (ALT/SGPT) 67 U/L (14-59) Alkaline Phosphatase 71 U/L (46-116) Total Protein 4.9 g/dL (6.4-8.2) Albumin 2.0 g/dL (3.4-5.0) Albumin/Globulin Ratio 0.7 (1.0-1.7) Thyroid Stimulating Hormone (TSH) 14.213 uIU/mL (0.358-3.74) Nasal Screen MRSA (PCR) Negative (Negative) Test 05/09/17 06:00 05/09/17 14:30 05/10/17 06:10 White Blood Count 1.4 x10^3/uL (4.0-11.0) 2.4 x10^3/uL (4.0-11.0) Red Blood Count 2.44 x10^6/uL (3.50-5.40) 2.59 x10^6/uL (3.50-5.40) Hemoglobin 8.0 g/dL (12.0-15.5) 8.8 g/dL (12.0-15.5) Hematocrit 23.9 % (36.0-47.0) 25.8 % (36.0-47.0) Mean Corpuscular Volume 98 fL (79-100) 100 fL (79-100) Mean Corpuscular Hemoglobin 33 pg (25-35) 34 pg (25-35) Mean Corpuscular Hemoglobin Concent 34 g/dL (31-37) 34 g/dL (31-37) Red Cell Distribution Width 20.4 % (11.5-14.5) 20.8 % (11.5-14.5) Platelet Count 14 x10^3/uL (140-400) 25 x10^3/uL (140-400) Sodium Level 140 mmol/L (136-145) 136 mmol/L (136-145) 134 mmol/L (136-145) Potassium Level 3.3 mmol/L (3.5-5.1) 4.7 mmol/L (3.5-5.1) 3.6 mmol/L (3.5-5.1) Chloride Level 111 mmol/L (98-107) 108 mmol/L (98-107) 105 mmol/L (98-107) Carbon Dioxide Level 20 mmol/L (21-32) 18 mmol/L (21-32) 19 mmol/L (21-32) Anion Gap 9 (6-14) 10 (6-14) 10 (6-14) Blood Urea Nitrogen 12 mg/dL (7-20) 9 mg/dL (7-20) 6 mg/dL (7-20) Creatinine 0.9 mg/dL (0.6-1.0) 1.0 mg/dL (0.6-1.0) 0.9 mg/dL (0.6-1.0) Estimated GFR (Cockcroft-Gault) 61.2 54.2 61.2 BUN/Creatinine Ratio 13 (6-20) 7 (6-20) Glucose Level 99 mg/dL (70-99) 132 mg/dL (70-99) 154 mg/dL (70-99) Calcium Level 7.4 mg/dL (8.5-10.1) 7.5 mg/dL (8.5-10.1) 7.5 mg/dL (8.5-10.1) Phosphorus Level 1.9 mg/dL (2.6-4.7) 1.1 mg/dL (2.6-4.7) 1.9 mg/dL (2.6-4.7) Magnesium Level 1.7 mg/dL (1.8-2.4) 1.9 mg/dL (1.8-2.4) 2.2 mg/dL (1.8-2.4) Total Bilirubin 0.4 mg/dL (0.2-1.0) 0.3 mg/dL (0.2-1.0) Aspartate Amino Transf (AST/SGOT) 81 U/L (15-37) 56 U/L (15-37) Alanine Aminotransferase (ALT/SGPT) 50 U/L (14-59) 39 U/L (14-59) Alkaline Phosphatase 70 U/L (46-116) 73 U/L (46-116) Total Protein 5.1 g/dL (6.4-8.2) 5.4 g/dL (6.4-8.2) Albumin 2.2 g/dL (3.4-5.0) 2.1 g/dL (3.4-5.0) Albumin/Globulin Ratio 0.8 (1.0-1.7) 0.6 (1.0-1.7) Laboratory Tests Test 05/09/17 14:30 05/10/17 06:10 Sodium Level 136 mmol/L (136-145) 134 mmol/L (136-145) Potassium Level 4.7 mmol/L (3.5-5.1) 3.6 mmol/L (3.5-5.1) Chloride Level 108 mmol/L (98-107) 105 mmol/L (98-107) Carbon Dioxide Level 18 mmol/L (21-32) 19 mmol/L (21-32) Anion Gap 10 (6-14) 10 (6-14) Blood Urea Nitrogen 9 mg/dL (7-20) 6 mg/dL (7-20) Creatinine 1.0 mg/dL (0.6-1.0) 0.9 mg/dL (0.6-1.0) Estimated GFR (Cockcroft-Gault) 54.2 61.2 Glucose Level 132 mg/dL (70-99) 154 mg/dL (70-99) Calcium Level 7.5 mg/dL (8.5-10.1) 7.5 mg/dL (8.5-10.1) Phosphorus Level 1.1 mg/dL (2.6-4.7) 1.9 mg/dL (2.6-4.7) Magnesium Level 1.9 mg/dL (1.8-2.4) 2.2 mg/dL (1.8-2.4) White Blood Count 2.4 x10^3/uL (4.0-11.0) Red Blood Count 2.59 x10^6/uL (3.50-5.40) Hemoglobin 8.8 g/dL (12.0-15.5) Hematocrit 25.8 % (36.0-47.0) Mean Corpuscular Volume 100 fL (79-100) Mean Corpuscular Hemoglobin 34 pg (25-35) Mean Corpuscular Hemoglobin Concent 34 g/dL (31-37) Red Cell Distribution Width 20.8 % (11.5-14.5) Platelet Count 25 x10^3/uL (140-400) BUN/Creatinine Ratio 7 (6-20) Total Bilirubin 0.3 mg/dL (0.2-1.0) Aspartate Amino Transf (AST/SGOT) 56 U/L (15-37) Alanine Aminotransferase (ALT/SGPT) 39 U/L (14-59) Alkaline Phosphatase 73 U/L (46-116) Total Protein 5.4 g/dL (6.4-8.2) Albumin 2.1 g/dL (3.4-5.0) Albumin/Globulin Ratio 0.6 (1.0-1.7) Microbiology 05/06/17 Urine Culture - Final, Complete 05/06/17 Urine Culture Result 1 (MARINE) - Final, Complete Medications Current Medications Ceftriaxone Sodium 1 gm/ Dextrose 50 ml @ 100 mls/hr Q24H IV ; Start 05/05/17 at 18:00; Status UNV Vancomycin HCl (Vanco Per Pharmacy) 1 each PRN DAILY PRN MC SEE COMMENTS Last administered on 05/06/17t 12:53; Start 05/05/17 at 18:00; Stop 05/06/17 at 13:10 ; Status DC Ceftriaxone Sodium (Rocephin) 1 gm Q24H IVP Last administered on 05/09/17 18: 10; Start 05/05/17 at 18:00 Sodium Chloride 1,000 ml @ 75 mls/hr [id number] IV Last administered on 04:20; Start 05/05/17 at 18:15; Stop 05/08/17 at 13:44; Status DC Atorvastatin Calcium (Lipitor) 40 mg DAILY PO Last administered on 05/10/17 08:25; Start 05/06/17 at 09:00 Diazepam (Valium) 5 mg TID PO Last administered on 05/10/17 08:24; Start 05/05/17 at 21:00 Levothyroxine Sodium (Synthroid) 75 mcg DAILYAC PO Last administered on 08:24; Start 05/06/17 at 07:30 Metoprolol Tartrate (Lopressor) 25 mg BID PO Last administered on 05/10/17 08 :25; Start 05/05/17 at 21:00 Pantoprazole Sodium (Protonix) 40 mg DAILY PO Last administered on 05/10/17 08:25; Start 05/06/17 at 09:00 Tramadol HCl (Ultram) 50 mg PRN Q6HRS PRN PO PAIN; Start 05/05/17 at 18:15 Ondansetron HCl (Zofran Odt) 8 mg PRN Q12HRS PRN PO NAUSEA/VOMITING Last administered on 05/08/17 22:46; Start 05/05/17 at 18:30 Venlafaxine HCl (Effexor Xr) 75 mg DAILY PO Last administered on 05/10/17 08: 25; Start 05/06/17 at 09:00 Vancomycin HCl 1.75 gm/Dextrose 500 ml @ 250 mls/hr 1X ONCE IV Last administered on 05/05/17 19:21; Start 05/05/17 at 18:30; Stop 05/05/17 at 20:29 ; Status DC Vancomycin HCl 1 gm/Dextrose 250 ml @ 250 mls/hr Q24H IV ; Start 05/06/17 at 19 :30; Stop 05/06/17 at 19:30; Status DC Vancomycin HCl 1 each 1X ONCE MC ; Start 05/07/17 at 19:00; Stop 05/07/17 at 19:01; Status Cancel Acyclovir (Zovirax) 400 mg [id number] PO Last administered on 05/10/17 08:24; Start 05/06/17 at 09:00 Doxycycline Hyclate (Vibra-Tab) 100 mg BID PO Last administered on 05/10/17 08:24; Start 05/06/17 at 14:00 Multi-Ingredient Mouthwash/Gargle (Magic Mouthwash) 10 ml PRN QID PRN PO MOUTH PAIN Last administered on 05/08/17 10:12; Start 05/07/17 at 09:00 Nystatin 5 ml [id number] Last administered on 05/10/17 08:24; Start at 13:00 Potassium Chloride/Dextrose/ Sod Cl 1,000 ml @ 75 mls/hr [id number] IV ; Start at 14:00; Stop 05/08/17 at 16:37; Status DC Potassium Chloride (Klor-Con) 40 meq 1X ONCE PO Last administered on 14:12; Start 05/08/17 at 14:00; Stop 05/08/17 at 14:01; Status DC Amiodarone HCl 900 mg/Dextrose 518 ml @ 34.53 mls/ hr CONT PRN IV SEE I/O RECORD Last administered on 05/09/17 14:28; Start 05/08/17 at 14:45; Stop at 14:29; Status DC Amiodarone HCl 900 mg/Dextrose 518 ml @ 0 mls/hr CONT PRN IV SEE I/O RECORD; Start 05/08/17 at 14:45; Status UNV Sodium Chloride 500 ml @ 500 mls/hr 1X ONCE IV Last administered on 15:30; Start 05/08/17 at 15:30; Stop 05/08/17 at 16:29; Status DC Sodium Bicarbonate 100 meq 1X ONCE IV Last administered on 05/08/17 16:52; Start 05/08/17 at 15:30; Stop 05/08/17 at 15:31; Status DC Magnesium Sulfate/ Dextrose 100 ml @ 100 mls/hr 1X ONCE IV Last administered on 05/08/17 16:00; Start 05/08/17 at 16:00; Stop 05/08/17 at 16:59; Status DC Magnesium Sulfate/ Dextrose 100 ml @ 100 mls/hr 1X ONCE IV Last administered on 05/08/17 16:00; Start 05/08/17 at 16:00; Stop 05/08/17 at 16:59; Status DC Potassium Chloride (Klor-Con) 40 meq [id number] PO ; Start 05/09/17 at 08:00; Stop 05/09/17 at 08:17; Status DC Potassium Chloride (Klor-Con) 40 meq 1X ONCE PO Last administered on 16:53; Start 05/08/17 at 17:00; Stop 05/08/17 at 17:01; Status DC Potassium Chloride/Sodium Chloride 1,000 ml @ 80 mls/hr [id number] IV Last administered on 05/09/17 05:49; Start 05/08/17 at 17:30; Stop 05/09/17 at 18 :27; Status DC Amiodarone HCl 150 mg/Dextrose 103 ml @ 618 mls/hr 1X ONCE IV Last administered on 05/09/17 07:22; Start 05/09/17 at 07:00; Stop 05/09/17 at 07 :09; Status DC Magnesium Sulfate/ Dextrose 50 ml @ 25 mls/hr 1X ONCE IV Last administered on 05/09/17 07:11; Start 05/09/17 at 07:00; Stop 05/09/17 at 08:59; Status DC Potassium Chloride 50 ml @ 25 mls/hr PRN Q2HRS PRN IV K-3.1 TO 3.5 Last administered on 05/09/17 11:44; Start 05/09/17 at 06:45; Stop 05/09/17 at 11 :44; Status DC Potassium Chloride 50 ml @ 25 mls/hr PRN Q2HRS PRN IV K 2.6 TO 3; Start at 06:45 Potassium Chloride 50 ml @ 25 mls/hr PRN Q2HRS PRN IV FOR K<2.6; Start at 08:00 Magnesium Sulfate/ Dextrose 100 ml @ 50 mls/hr PRN DAILY PRN IV MAG<1.8; Start 05/09/17 at 09:00 Potassium Chloride 50 ml @ 50 mls/hr Q1H IV ; Start 05/09/17 at 08:15; Stop at 10:14; Status Cancel Potassium Chloride 50 ml @ 50 mls/hr DAILY IV Last administered on 05/10/17 08:24; Start 05/10/17 at 09:00; Stop 05/11/17 at 09:59 Potassium Chloride 50 ml @ 50 mls/hr Q1H IV Last administered on 05/09/17 10: 00; Start 05/09/17 at 09:00; Stop 05/09/17 at 10:59; Status DC Potassium Chloride (Klor-Con) 40 meq 1X ONCE PO ; Start 05/09/17 at 11:00; Stop 05/09/17 at 11:01; Status DC Potassium Chloride/Dextrose/ Sod Cl 1,000 ml @ 75 mls/hr [id number] IV Last administered on 05/10/17 01:57; Start 05/09/17 at 11:00 Calcium Gluconate (Calcium Gluconate) 1,000 mg 1X ONCE IVP Last administered on 05/09/17 14:28; Start 05/09/17 at 14:00; Stop 05/09/17 at 14:01; Status DC Info 1 each PRN DAILY PRN MC SEE COMMENTS Last administered on 05/09/17 14:35 ; Start 05/09/17 at 13:45 Amiodarone HCl 150 mg/Dextrose 103 ml @ 618 mls/hr 1X ONCE IV Last administered on 05/09/17 14:28; Start 05/09/17 at 14:00; Stop 05/09/17 at 14 :09; Status DC Amiodarone HCl (Cordarone) 400 mg BID PO ; Start 05/09/17 at 21:00 Sodium Chloride 90 meq/Potassium Chloride 50 meq/ Potassium Phosphate 13.6 mmol/ Magnesium Sulfate 10 meq/ Calcium Gluconate 10 meq/ Multivitamins 10 ml/Chromium / Copper/Manganese/ Seleni/Zn 1 ml/ Total Parenteral Nutrition/Amino Acids/ Dextrose/ Fat Emulsion Intravenous 1,387.0013 ml @ 3.625 mls/hr TPN CONT IV ; Start 05/09/17 at 22:00; Status UNV Sodium Chloride 90 meq/Potassium Acetate 70 meq/ Potassium Phosphate 18 mmol/ Magnesium Sulfate 12 meq/Calcium Gluconate 10 meq/ Multivitamins 10 ml/Chromium / Copper/Manganese/ Seleni/Zn 1 ml/ Total Parenteral Nutrition/Amino Acids/ Dextrose/ Fat Emulsion Intravenous 1,512 ml @ 63 mls/hr TPN CONT IV Last administered on 05/09/17 21:39; Start 05/09/17 at 22:00; Stop 05/10/17 at 21 :59 Magnesium Sulfate/ Dextrose 50 ml @ 25 mls/hr 1X ONCE IV ; Start 05/09/17 at 15:15; Stop 05/09/17 at 17:14; Status DC Procainamide HCl 2000 mg/Dextrose 520 ml @ 31.2 mls/hr CONT PRN IV SEE I/O RECORD Last administered on 05/09/17 15:49; Start 05/09/17 at 16:00 Procainamide HCl 500 mg/Dextrose 55 ml @ 110 mls/hr 1X ONCE IV Last administered on 05/09/17 15:49; Start 05/09/17 at 15:30; Stop 05/09/17 at 15 :59; Status DC Procainamide HCl 2000 mg/Dextrose 520 ml @ 0 mls/hr CONT PRN IV SEE I/O RECORD ; Start 05/09/17 at 15:45; Status UNV Sodium Phosphate 30 mmol/Dextrose 260 ml @ 65 mls/hr 1X ONCE IV ; Start 05/09 at 17:45; Stop 05/09/17 at 21:44; Status Cancel Sodium Phosphate 20 mmol/Dextrose 256.6667 ml @ 64.167 m... 1X ONCE IV Last administered on 05/09/17 18:10; Start 05/09/17 at 17:45; Stop 05/09/17 at 21 :44; Status DC Magnesium Sulfate/ Dextrose 100 ml @ 100 mls/hr 1X ONCE IV Last administered on 05/10/17 01:48; Start 05/10/17 at 02:00; Stop 05/10/17 at 02:59; Status DC Midazolam HCl (Versed) 1 mg PRN Q2HR PRN IV SEDATION; Start 05/10/17 at 02:30 Midazolam HCl (Versed) 2 mg PRN Q2HR PRN IV SEDATION; Start 05/10/17 at 02:30 Amiodarone HCl 900 mg/Dextrose 518 ml @ 0 mls/hr CONT PRN IV SEE I/O RECORD; Start 05/10/17 at 03:45; Status UNV Amiodarone HCl 450 mg/Dextrose 259 ml @ 17.26 mls/ hr CONT PRN IV SEE I/O RECORD Last administered on 05/10/17 12:50; Start 05/10/17 at 04:00 Lidocaine HCl/ Dextrose 500 ml @ 0 mls/hr CONT PRN IV SEE I/O RECORD Last administered on 05/10/17 04:15; Start 05/10/17 at 04:00 Lidocaine HCl (Lidocaine HCl 2% Abboject) 100 mg 1X ONCE IV Last administered on 05/10/17 04:13; Start 05/10/17 at 04:30; Stop 05/10/17 at 04:31; Status DC Amiodarone HCl (Cordarone) 300 mg STK-MED ONCE .ROUTE ; Start 05/09/17 at 23:00 ; Stop 05/10/17 at 11:00; Status DC Atropine Sulfate 1 mg STK-MED ONCE .ROUTE ; Start 05/09/17 at 23:00; Stop at 11:00; Status DC Epinephrine HCl (EPINEPHrine SYRINGE) 3 mg STK-MED ONCE .ROUTE ; Start at 23:00; Stop 05/10/17 at 11:00; Status DC Lidocaine HCl (Lidocaine HCl 2% Abboject) 100 mg STK-MED ONCE .ROUTE ; Start at 23:00; Stop 05/10/17 at 11:00; Status DC Magnesium Sulfate/ Dextrose (Magnesium Sulfate PREMIX 1GM) 2 gm STK-MED ONCE IV ; Start 05/09/17 at 23:00; Stop 05/10/17 at 11:00; Status DC Potassium Phosphate 13.6 mmol/Dextrose 104.5333 ml @ 52.267 m... ONCE ONCE IV ; Start 05/10/17 at 14:00; Stop 05/10/17 at 15:59 Sodium Acetate 90 meq/Potassium Chloride 70 meq/ Potassium Phosphate 20.4 mmol/ Magnesium Sulfate 18 meq/ Calcium Gluconate 10 meq/ Multivitamins 10 ml/Chromium / Copper/Manganese/ Seleni/Zn 1 ml/ Total Parenteral Nutrition/Amino Acids/ Dextrose/ Fat Emulsion Intravenous 1,512 ml @ 63 mls/hr TPN CONT IV ; Start 05/10/17 at 22:00; Stop 05/11/17 at 21:59 Lidocaine/Sodium Bicarbonate (Buffered Lidocaine 1%) 20 ml STK-MED ONCE IJ ; Start 05/10/17 at 13:45; Stop 05/10/17 at 13:46; Status DC Lidocaine/Sodium Bicarbonate (Buffered Lidocaine 1%) 3 ml 1X ONCE IJ ; Start 05/10/17 at 13:45; Stop 05/10/17 at 13:57; Status DC Sodium Chloride 250 ml @ 250 mls/hr 1X ONCE IV ; Start 05/10/17 at 13:45; Stop 05/10/17 at 14:44 Active Scripts Active Reported Levofloxacin 500 Mg Tablet 500 Mg PO DAILY Tramadol Hcl 50 Mg Tablet 50 Mg PO Q6H PRN Ondansetron Hcl 4 Mg Tablet 8 Mg PO BID PRN [place] 5-325 Tablet (Acetaminophen/Hydrocodone Bitart) 1 Each Tablet 1-2 Tab PO Q4HRS PRN Atorvastatin Calcium 40 Mg Tablet 1 Tab PO DAILY Metoprolol Tartrate 25 Mg Tablet 1 Tab PO BID Pantoprazole Sodium 40 Mg Tablet.dr 1 Tab PO DAILY Diazepam 5 Mg Tablet 5 Mg PO TID Venlafaxine Hcl Er (Venlafaxine Hcl) 75 Mg Cap.er.24h 75 Mg PO DAILY Synthroid (Levothyroxine Sodium) 75 Mcg Tablet 75 Mcg PO DAILYAC Vitals/I & O Vital Sign - Last 24 Hours 05/09/17 05/09/17 05/09/17 05/09/17 14:28 15:00 16:00 16:00 Temp 97.9 97.9 Pulse 62 58 68 Resp 25 24 B/P (MAP) 117/48 130/58 (82) 122/58 (79) 122/58 (79) Pulse Ox 93 93 O2 Delivery Room Air Room Air 05/09/17 05/09/17 05/09/17 05/09/17 16:00 17:00 17:00 18:00 Pulse 64 61 Resp 25 25 B/P (MAP) 137/62 (87) 129/60 (83) 138/65 (89) Pulse Ox 96 98 O2 Delivery Room Air Room Air Room Air 05/09/17 05/09/17 05/09/17 05/09/17 18:00 19:00 20:00 20:00 Temp 97.9 97.9 Pulse 57 58 Resp 26 24 B/P (MAP) 131/58 (82) 131/60 (83) Pulse Ox 97 97 O2 Delivery Room Air Room Air Room Air 05/09/17 05/09/17 05/09/17 05/09/17 20:00 21:00 21:00 21:00 Pulse 58 58 59 Resp 20 B/P (MAP) 127/44 (71) Pulse Ox 95 O2 Delivery Room Air 05/09/17 05/09/17 05/10/17 05/10/17 22:00 23:00 00:00 00:00 Pulse 52 59 Resp 18 19 B/P (MAP) 120/59 (79) 122/58 (79) Pulse Ox 95 95 O2 Delivery Room Air Room Air Room Air 05/10/17 05/10/17 05/10/17 05/10/17 00:00 01:00 02:00 03:00 Temp 98.2 98.2 Pulse 59 57 68 64 Resp 20 26 B/P (MAP) 113/54 (73) 115/55 (75) 117/59 (78) 136/58 (84) Pulse Ox 93 95 93 94 O2 Delivery Room Air Room Air Room Air Room Air 05/10/17 05/10/17 05/10/17 05/10/17 04:00 04:00 04:00 04:13 Temp 98.4 98.4 Pulse 74 74 Resp 20 B/P (MAP) 142/70 (94) 148/46 Pulse Ox 94 O2 Delivery Nasal Cannula Nasal Cannula O2 Flow Rate 2.0 2.0 05/10/17 05/10/17 05/10/17 05/10/17 05:00 06:00 07:00 08:00 Pulse 68 65 62 Resp 23 20 21 B/P (MAP) 148/63 (91) 142/64 (90) 131/62 (85) Pulse Ox 95 96 93 O2 Delivery Nasal Cannula Nasal Cannula Nasal Cannula Nasal Cannula O2 Flow Rate 2.0 2.0 2.0 2.0 05/10/17 05/10/17 05/10/17 05/10/17 08:00 08:25 09:00 10:00 Temp 97.4 97.4 Pulse 62 64 64 60 Resp 05 18 22 B/P (MAP) 142/65 (90) 143/69 150/70 (96) 146/72 (96) Pulse Ox 96 96 95 O2 Delivery Nasal Cannula Nasal Cannula Nasal Cannula O2 Flow Rate 2.0 2.0 2.0 05/10/17 05/10/17 05/10/17 05/10/17 11:00 12:00 12:00 13:54 Temp 97.4 97.4 Pulse 45 46 46 Resp 23 24 16 B/P (MAP) 115/61 (79) 110/55 (73) 122/60 (80) Pulse Ox 94 94 94 O2 Delivery Nasal Cannula Nasal Cannula Nasal Cannula Nasal Cannula O2 Flow Rate 2.0 2.0 2.0 2.0 Intake and Output 05/09/17 05/09/17 05/10/17 15:00 23:00 07:00 Intake Total 1648.02 ml 2425.1 ml Output Total 260 ml 370 ml 1525 ml Balance -260 ml 1278.02 ml 900.1 ml DANIEL MORALEZ MD May 10, 2017 14:11
[2017-05-10] MEDS: TPN PER PHARMACY MC PRN (14:16)
--- NOTE | 2017-05-10 14:51 | RAD ---
Procedure: Ultrasound-guided placement of right internal jugular central venous [id number]/13/2017 2:46 PM Clinical Indication: TPN/caustic medications Discussion: The risks and benefits of the procedure were discussed the patient and/or their access service representative. Informed consent was obtained. A timeout procedure was performed. All elements of maximal sterile barrier technique including the use of a cap, mask, sterile gown, sterile gloves, large sterile sheet, appropriate hand hygiene, and 2% chlorhexidine for cutaneous antisepsis (or acceptable alternative antiseptic per current guidelines) were followed for this procedure. The patient was prepped and draped in the usual sterile fashion. Ultrasound interrogation of the right neck revealed patency and compressibility of the right internal jugular vein. A 21-gauge micropuncture was then used to gain access to this vein under ultrasound guidance. A hard copy ultrasound image was recorded. A guidewire was advanced centrally. 5 Somali sheath was placed. Over a wire following dilatation, a triple-lumen central venous catheter was advanced centrally. Catheter was found to flush and aspirate normally. Follow-up chest radiograph demonstrates tip at the cavoatrial junction. Catheter secured in place and a sterile dressing was applied. No immediate complications were identified. Impression: Successful ultrasound-guided placement of right internal jugular triple-lumen central venous catheter
--- NOTE | 2017-05-10 15:10 | RAD ---
Portable chest, 05/10/2017: History: Check line placement Comparison is made to a study from 05/08/2017. A right jugular central venous catheter has been inserted extending into the mid right atrium. A left sided Port-A-Cath remains in place with its tip directed laterally to the right in the superior vena cava. The heart size is normal. The pulmonary vascularity remains congested with prominent perihilar markings. There is mild atelectasis/infiltrate medially in the left base. There is no evidence of pneumothorax. No large pleural effusion is evident. IMPRESSION: 1. Interval insertion of a right jugular central venous catheter extending into the mid right atrium. 2. Ongoing vascular congestion
--- NOTE | 2017-05-10 17:57 | PN ---
DATE: SUBJECTIVE: The patient is alert and responsive. The patient during the night had multiple episodes of sustained ventricular tachycardia and one episode of ventricular fibrillation. The patient was shocked at least 10 times during the night. In addition to that, the patient was treated medically and received more than one dose of magnesium, a bolus and increasing drip for amiodarone as well as 2 different boluses of procainamide and a drip. The patient also received a lidocaine bolus and drip. All of the strips are presently running. PHYSICAL EXAMINATION: NECK: No JVD. LUNGS: Breath sounds are decreased and there are diffuse crackles. HEART: No changes. EXTREMITIES: No edema. IMPRESSION: This patient has recurrent ventricular tachycardia. We will need to define the patient's situation with regards to her colon cancer as well as her prognosis and then discuss this with the family in order to decide whether we are going to be doing a heart catheterization and what to do with the results of the heart catheterization. Depending on how the patient progresses and whether or not we are going to do something further from a cardiac standpoint, we will need to wait anyways because with her current pancytopenia including the profound thrombocytopenia, I do not think that it would be safe to proceed with a heart catheterization today. We will discuss this with the other services. NEO ASHRAF MD DR: ELIANA/nts JOB#: [id number] / [id number]
[2017-05-10] MEDS: cefTRIAXone IV Push 1 GM VIAL. IVP SCH (18:25)
[2017-05-10] MEDS ORDERED: ALBUTEROL SULFATE 2.5 MG/3 ML NEBU. NEB ONE (20:00)
[2017-05-10 20:02] LABS: HCO3 ABG 15 mmol/L (21-28); PCO2 ABG 27 mmHg (35-46); PH ABG 7.36 (7.35-7.45); PO2 ABG 61 mmHg (65-108); SAT O2 ABG 89 % (92-99)
[2017-05-10 20:53] LABS: FIO2 ABG 44
[2017-05-10] MEDS ORDERED: FUROSEMIDE 40 MG/4 ML VIAL. IVP ONE (21:30)
[2017-05-10] MEDS ORDERED: DEXTROSE 70% IV SCH ×10 (22:00)
[2017-05-10] MEDS ORDERED: TOTAL PARENTERAL NUTRITION IV SCH ×10 (22:00)
[2017-05-10] MEDS ORDERED: [UNRECOGNIZED DRUG - OTHER] IV SCH ×10 (22:00)
[2017-05-10] MEDS ORDERED: AMINO ACIDS IV SCH ×10 (22:00)
[2017-05-10] MEDS: PROCAINAMIDE 2,000 MG in IV DEXTROSE 5% 500 ML IV PRN (22:28)
[2017-05-11] VITALS (24 sets, daily range): BP systolic 95–155; BP diastolic 50–68
[2017-05-11 05:19] LABS: BASO % 0 % (0-3); EOS % 0 % (0-3); HEMATOCRIT 27.1 % (36.0-47.0); HEMOGLOBIN 9.3 g/dL (12.0-15.5); LYMPH # 0.5 x10^3/uL (1.0-4.8); LYMPH % 17 % (24-48); MEAN CORPUSCULAR HEMOGLOBIN 34 pg (25-35); MEAN CORPUSCULAR HGB CONC 34 g/dL (31-37); MEAN CORPUSCULAR VOLUME 98 fL (79-100); MONO % 19 % (0-9); NEUT % 64 % (31-73); PLATELET COUNT 27 x10^3/uL (140-400); RED BLOOD COUNT 2.76 x10^6/uL (3.50-5.40); RED CELL DISTRIBUTION WIDTH 20.7 % (11.5-14.5); WHITE BLOOD COUNT 2.9 x10^3/uL (4.0-11.0)
[2017-05-11] MEDS: AMIODARONE 450 MG in IV DEXTROSE 5% 250 ML IV PRN (05:43)
[2017-05-11] MEDS: LIDOCAINE 2GM/500ML PREMIX 500 ML IV PRN (05:46)
[2017-05-11 06:01] LABS: ALBUMIN 2.2 g/dL (3.4-5.0); ALBUMIN/GLOBULIN RATIO 0.6 (1.0-1.7); CALCIUM 7.3 mg/dL (8.5-10.1); GFR 54.2; MAGNESIUM 1.7 mg/dL (1.8-2.4); PHOSPHORUS 2.2 mg/dL (2.6-4.7); POTASSIUM 3.8 mmol/L (3.5-5.1); TOTAL BILIRUBIN 0.3 mg/dL (0.2-1.0); TOTAL PROTEIN 5.7 g/dL (6.4-8.2)
--- NOTE | 2017-05-11 07:56 | PDOC ---
Infectious Disease Note Subjective Subjective pt feeling ok, ROS ROS GEN: Denies fevers, HEENT: Denies blurred CV: Denies chest pain RESP: Denies shortness of air, cough GI: Vomited pills yesterday NEURO: Denies confusion, dizziness MSK: Denies joint pain/swelling Vital Sign Vital Signs Vital Signs Date Time Temp Pulse Resp B/P (MAP) Pulse Ox O2 Delivery O2 Flow Rate FiO2 05/11/17 06:00 80 20 152/66 (94) 96 BiPAP/CPAP 05/11/17 04:00 98.1 98.1 05/10/17 20:00 6.0 Physical Exam PHYSICAL EXAM GENERAL: NAD, Alert HEENT: PERRL, OC/OP -dry. Lips with some crusting NECK: Supple, no JVD, no LN LUNGS: Clear. on 02 HEART: S1S2, no gallop, no murmur ABD: Soft, NT, no organomegaly, no rebound, Ostomy [place] EXT: No edema, no cyanosis STRIPPER SOFT PLASTIC: Alert, oriented x 3, no focal neurologic deficit SKIN: No rash IV: Port left chest - clean. [facility] Labs Lab Laboratory Tests Test 05/10/17 19:54 05/11/17 05:00 O2 Saturation 89 % (92-99) Arterial Blood pH 7.36 (7.35-7.45) Arterial Blood pCO2 at Patient Temp 27 mmHg (35-46) Arterial Blood pO2 at Patient Temp 61 mmHg (65-108) Arterial Blood HCO3 15 mmol/L (21-28) Arterial Blood Base Excess -9 mmol/L (-3-3) FiO2 44 White Blood Count 2.9 x10^3/uL (4.0-11.0) Red Blood Count 2.76 x10^6/uL (3.50-5.40) Hemoglobin 9.3 g/dL (12.0-15.5) Hematocrit 27.1 % (36.0-47.0) Mean Corpuscular Volume 98 fL (79-100) Mean Corpuscular Hemoglobin 34 pg (25-35) Mean Corpuscular Hemoglobin Concent 34 g/dL (31-37) Red Cell Distribution Width 20.7 % (11.5-14.5) Platelet Count 27 x10^3/uL (140-400) Neutrophils (%) (Auto) 64 % (31-73) Lymphocytes (%) (Auto) 17 % (24-48) Monocytes (%) (Auto) 19 % (0-9) Eosinophils (%) (Auto) 0 % (0-3) Basophils (%) (Auto) 0 % (0-3) Neutrophils # (Auto) 1.9 x10^3uL (1.8-7.7) Lymphocytes # (Auto) 0.5 x10^3/uL (1.0-4.8) Monocytes # (Auto) 0.6 x10^3/uL (0.0-1.1) Eosinophils # (Auto) 0.0 x10^3/uL (0.0-0.7) Basophils # (Auto) 0.0 x10^3/uL (0.0-0.2) Sodium Level 131 mmol/L (136-145) Potassium Level 3.8 mmol/L (3.5-5.1) Chloride Level 100 mmol/L (98-107) Carbon Dioxide Level 22 mmol/L (21-32) Anion Gap 9 (6-14) Blood Urea Nitrogen 9 mg/dL (7-20) Creatinine 1.0 mg/dL (0.6-1.0) Estimated GFR (Cockcroft-Gault) 54.2 BUN/Creatinine Ratio 9 (6-20) Glucose Level 177 mg/dL (70-99) Calcium Level 7.3 mg/dL (8.5-10.1) Phosphorus Level 2.2 mg/dL (2.6-4.7) Magnesium Level 1.7 mg/dL (1.8-2.4) Total Bilirubin 0.3 mg/dL (0.2-1.0) Aspartate Amino Transf (AST/SGOT) 34 U/L (15-37) Alanine Aminotransferase (ALT/SGPT) 34 U/L (14-59) Alkaline Phosphatase 77 U/L (46-116) Total Protein 5.7 g/dL (6.4-8.2) Albumin 2.2 g/dL (3.4-5.0) Albumin/Globulin Ratio 0.6 (1.0-1.7) Triglycerides Level 121 mg/dL (0-150) Objective Assessment S/p code 05/09 - V - tach s/p shock now on Lidocaine/Procaine/Amiodarone/ Dobutamine Neutropenia and thrombocytopenia from chemo.- improved Fever, chills prior to admit bronchitis possible early pneumonia - CXR improving - seen this am Pyruia and dysuria Mucositis dysphagia History of colon cancer stage 4, status post surgery and recently on chemotherapy. Oral mucositis. Renal insufficiency. Hyperlipidemia. Hypertension. Degenerative joint disease. Hypothyroidism. Plan Plan of Care 1. Continue Rocephin and doxycycline 2. continue acyclovir 3 supportive care 4.pulm and oncology following Follow up labs/culture and susceptibility results. d/w family DANIEL FORD MD May 11, 2017 07:56
[2017-05-11] MEDS: AMIODARONE HCL 200 MG TABLET. PO SCH ×3 (08:16→21:02)
--- NOTE | 2017-05-11 08:34 | PDOC ---
GENERAL General: vss and afebrile. no further v-tach since on lidocaine drip. respiratory distress last night with cxr showing vascular congestion and received IV lasix with good diuresis. O2 at 2L/NC this am. Magnesium low and replacement ordered. wbc increased to 2.9K and platelets increased to 27K. denies that she feels bad again this am. mucositis same. chest clear and heart regular and abdomen benign. help of multiple consultants appreciated. on TPN and taking very little po. once counts rebound will need heart cath. she informs me that oncology will forgo last chemo planned soon. Problems: VITAL SIGNS Vital Signs: Vital Signs Date Time Temp Pulse Resp B/P (MAP) Pulse Ox O2 Delivery O2 Flow Rate FiO2 05/11/17 07:55 97 Nasal Cannula 2.0 05/11/17 06:00 80 20 152/66 (94) 05/11/17 04:00 98.1 98.1 I & O I & O Intake and Output 05/11/17 06:59 Intake Total 1724 ml Output Total 3275 ml Balance -1551 ml Intake Oral 125 ml IV Total 1599 ml Output Urine Total 3255 ml Stool Total 20 ml ALLERGIES Allergies: Allergies Coded Allergies Type Severity Reaction Last Updated Verified codeine Adverse Reaction Intermediate Patient states hallucinations 10/19/16 Yes MEDS Medications: Current Medications Medications (Trade) Dose Ordered Sig/Fannie Start Time Stop Time Status Last Admin Dose Admin Acyclovir (Zovirax) 400 mg [id number] 05/06/17 09:00 05/10/17 16:02 400 MG Albuterol Sulfate (Ventolin Neb Soln) 2.5 mg 1X ONCE 05/10/17 20:00 05/10/17 20:01 DC 05/10/17 19:54 2.5 MG Amiodarone HCl (Cordarone) 300 mg STK-MED ONCE 05/09/17 23:00 05/10/17 11:00 DC Amiodarone HCl 150 mg/Dextrose 103 ml @ 618 mls/hr 1X ONCE 05/09/17 14:00 05/09/17 14:09 DC 05/09/17 14:28 618 MLS/HR Amiodarone HCl 450 mg/Dextrose 259 ml @ 17.26 mls/ hr CONT PRN 05/10/17 04:00 05/11/17 05:43 17.26 MLS/HR Amiodarone HCl 900 mg/Dextrose 518 ml @ 0 mls/hr CONT PRN 05/10/17 03:45 UNV Atorvastatin Calcium (Lipitor) 40 mg DAILY 05/06/17 09:00 05/10/17 08:25 40 MG Atropine Sulfate 1 mg STK-MED ONCE 05/09/17 23:00 05/10/17 11:00 DC Calcium Gluconate (Calcium Gluconate) 1,000 mg 1X ONCE 05/09/17 14:00 05/09/17 14:01 DC 05/09/17 14:28 1,000 MG Ceftriaxone Sodium 1 gm/ Dextrose 50 ml @ 100 mls/hr Q24H 05/05/17 18:00 UNV Ceftriaxone Sodium (Rocephin) 1 gm Q24H 05/05/17 18:00 05/10/17 18:25 1 GM Diazepam (Valium) 5 mg TID 05/05/17 21:00 05/10/17 16:02 5 MG Dobutamine HCl/ Dextrose 250 ml @ 0 mls/hr CONT PRN 05/10/17 21:15 05/10/17 21:59 9.594 MLS/HR Doxycycline Hyclate (Vibra-Tab) 100 mg BID 05/06/17 14:00 05/10/17 08:24 100 MG Epinephrine HCl (EPINEPHrine SYRINGE) 3 mg STK-MED ONCE 05/09/17 23:00 05/10/17 11:00 DC Furosemide (Lasix) 40 mg 1X ONCE 05/10/17 21:30 05/10/17 21:31 DC 05/10/17 21:22 40 MG Info 1 each PRN DAILY PRN 05/09/17 13:45 05/10/17 14:16 1 EACH Levothyroxine Sodium (Synthroid) 75 mcg DAILYAC 05/06/17 07:30 05/10/17 08:24 75 MCG Lidocaine HCl (Lidocaine HCl 2% Abboject) 100 mg STK-MED ONCE 05/09/17 23:00 05/10/17 11:00 DC Lidocaine HCl/ Dextrose 500 ml @ 0 mls/hr CONT PRN 05/10/17 04:00 05/11/17 05:46 15 MLS/HR Lidocaine/Sodium Bicarbonate (Buffered Lidocaine 1%) 3 ml 1X ONCE 05/10/17 13:45 05/10/17 13:57 DC 05/10/17 13:45 3 ML Magnesium Sulfate/ Dextrose (Magnesium Sulfate PREMIX 1GM) 2 gm STK-MED ONCE 05/09/17 23:00 05/10/17 11:00 DC Metoprolol Tartrate (Lopressor) 25 mg BID 05/05/17 21:00 05/10/17 08:25 25 MG Midazolam HCl (Versed) 2 mg PRN Q2HR PRN 05/10/17 02:30 Multi-Ingredient Mouthwash/Gargle (Magic Mouthwash) 10 ml PRN QID PRN 05/07/17 09:00 05/08/17 10:12 10 ML Nystatin 5 ml [id number] 05/07/17 13:00 05/10/17 08:24 5 ML Ondansetron HCl (Zofran Odt) 8 mg PRN Q12HRS PRN 05/05/17 18:30 05/08/17 22:46 8 MG Pantoprazole Sodium (Protonix) 40 mg DAILY 05/06/17 09:00 05/10/17 08:25 40 MG Potassium Chloride/Dextrose/ Sod Cl 1,000 ml @ 75 mls/hr [id number] 05/09/17 11:00 05/11/17 08:26 DC 05/10/17 17:58 75 MLS/HR Potassium Chloride/Sodium Chloride 1,000 ml @ 80 mls/hr [id number] 05/08/17 17:30 05/09/17 18:27 DC 05/09/17 05:49 80 MLS/HR Potassium Phosphate 13.6 mmol/Dextrose 104.5333 ml @ 52.267 m... ONCE ONCE 05/10/17 14:00 05/10/17 15:59 DC 05/10/17 15:54 52.267 MLS/HR Potassium Chloride (Klor-Con) 40 meq 1X ONCE 05/09/17 11:00 05/09/17 11:01 DC Procainamide HCl 500 mg/Dextrose 55 ml @ 110 mls/hr 1X ONCE 05/09/17 15:30 05/09/17 15:59 DC 05/09/17 15:49 110 MLS/HR Procainamide HCl 2000 mg/Dextrose 520 ml @ 0 mls/hr CONT PRN 05/09/17 15:45 UNV Sodium Acetate 90 meq/Potassium Chloride 70 meq/ Potassium Phosphate 20.4 mmol/Magnesium Sulfate 18 meq/ Calcium Gluconate 10 meq/ Multivitamins 10 ml/Chromium/ Copper/Manganese/ Seleni/Zn 1 ml/ Total Parenteral Nutrition/Amino Acids/Dextrose/ Fat Emulsion Intravenous 1,512 ml @ 63 mls/hr TPN CONT 05/10/17 22:00 05/11/17 21:59 05/10/17 22:00 63 MLS/HR Sodium Bicarbonate 100 meq 1X ONCE 05/08/17 15:30 05/08/17 15:31 DC 05/08/17 16:52 100 MEQ Sodium Chloride 250 ml @ 250 mls/hr 1X ONCE 05/10/17 13:45 05/10/17 14:44 DC Sodium Chloride 90 meq/Potassium Acetate 70 meq/ Potassium Phosphate 18 mmol/ Magnesium Sulfate 12 meq/Calcium Gluconate 10 meq/ Multivitamins 10 ml/Chromium/ Copper/Manganese/ Seleni/Zn 1 ml/ Total Parenteral Nutrition/Amino Acids/Dextrose/ Fat Emulsion Intravenous 1,512 ml @ 63 mls/hr TPN CONT 05/09/17 22:00 05/10/17 21:59 DC 05/09/17 21:39 63 MLS/HR Sodium Chloride 90 meq/Potassium Chloride 50 meq/ Potassium Phosphate 13.6 mmol/Magnesium Sulfate 10 meq/ Calcium Gluconate 10 meq/ Multivitamins 10 ml/Chromium/ Copper/Manganese/ Seleni/Zn 1 ml/ Total Parenteral Nutrition/Amino Acids/Dextrose/ Fat Emulsion Intravenous 1,387.0013 ml @ 3.625 mls/hr TPN CONT 05/09/17 22:00 UNV Sodium Phosphate 20 mmol/Dextrose 256.6667 ml @ 64.167 m... 1X ONCE 05/09/17 17:45 05/09/17 21:44 DC 05/09/17 18:10 64.167 MLS/HR Sodium Phosphate 30 mmol/Dextrose 260 ml @ 65 mls/hr 1X ONCE 05/09/17 17:45 05/09/17 21:44 Cancel Tramadol HCl (Ultram) 50 mg PRN Q6HRS PRN 05/05/17 18:15 Vancomycin HCl 1 each 1X ONCE 05/07/17 19:00 05/07/17 19:01 Cancel Vancomycin HCl (Vanco Per Pharmacy) 1 each PRN DAILY PRN 05/05/17 18:00 05/06/17 13:10 DC 05/06/17 12:53 1 EACH Vancomycin HCl 1.75 gm/Dextrose 500 ml @ 250 mls/hr 1X ONCE 05/05/17 18:30 05/05/17 20:29 DC 05/05/17 19:21 250 MLS/HR Vancomycin HCl 1 gm/Dextrose 250 ml @ 250 mls/hr Q24H 05/06/17 19:30 05/06/17 19:30 DC Venlafaxine HCl (Effexor Xr) 75 mg DAILY 05/06/17 09:00 05/10/17 08:25 75 MG LAB Lab: Laboratory Tests Test 05/10/17 19:54 05/11/17 05:00 O2 Saturation 89 % (92-99) Arterial Blood pH 7.36 (7.35-7.45) Arterial Blood pCO2 at Patient Temp 27 mmHg (35-46) Arterial Blood pO2 at Patient Temp 61 mmHg (65-108) Arterial Blood HCO3 15 mmol/L (21-28) Arterial Blood Base Excess -9 mmol/L (-3-3) FiO2 44 White Blood Count 2.9 x10^3/uL (4.0-11.0) Red Blood Count 2.76 x10^6/uL (3.50-5.40) Hemoglobin 9.3 g/dL (12.0-15.5) Hematocrit 27.1 % (36.0-47.0) Mean Corpuscular Volume 98 fL (79-100) Mean Corpuscular Hemoglobin 34 pg (25-35) Mean Corpuscular Hemoglobin Concent 34 g/dL (31-37) Red Cell Distribution Width 20.7 % (11.5-14.5) Platelet Count 27 x10^3/uL (140-400) Neutrophils (%) (Auto) 64 % (31-73) Lymphocytes (%) (Auto) 17 % (24-48) Monocytes (%) (Auto) 19 % (0-9) Eosinophils (%) (Auto) 0 % (0-3) Basophils (%) (Auto) 0 % (0-3) Neutrophils # (Auto) 1.9 x10^3uL (1.8-7.7) Lymphocytes # (Auto) 0.5 x10^3/uL (1.0-4.8) Monocytes # (Auto) 0.6 x10^3/uL (0.0-1.1) Eosinophils # (Auto) 0.0 x10^3/uL (0.0-0.7) Basophils # (Auto) 0.0 x10^3/uL (0.0-0.2) Sodium Level 131 mmol/L (136-145) Potassium Level 3.8 mmol/L (3.5-5.1) Chloride Level 100 mmol/L (98-107) Carbon Dioxide Level 22 mmol/L (21-32) Anion Gap 9 (6-14) Blood Urea Nitrogen 9 mg/dL (7-20) Creatinine 1.0 mg/dL (0.6-1.0) Estimated GFR (Cockcroft-Gault) 54.2 BUN/Creatinine Ratio 9 (6-20) Glucose Level 177 mg/dL (70-99) Calcium Level 7.3 mg/dL (8.5-10.1) Phosphorus Level 2.2 mg/dL (2.6-4.7) Magnesium Level 1.7 mg/dL (1.8-2.4) Total Bilirubin 0.3 mg/dL (0.2-1.0) Aspartate Amino Transf (AST/SGOT) 34 U/L (15-37) Alanine Aminotransferase (ALT/SGPT) 34 U/L (14-59) Alkaline Phosphatase 77 U/L (46-116) Total Protein 5.7 g/dL (6.4-8.2) Albumin 2.2 g/dL (3.4-5.0) Albumin/Globulin Ratio 0.6 (1.0-1.7) Triglycerides Level 121 mg/dL (0-150) Nutrition Consultation Dietary Evaluation: Recommendations by RD: PPN/TPN Comments: REC TPN: 225 g dextrose, 60 g AA, 20 g lipid Can dc TPN once PO intake meeting > 75% est needs Expected Outcomes/Goals: TPN infusion initiated and meeting > 75% est needs within 24 - 48 hrs Malnutrition Findings: Food and Nutrition Intake (Mod: <75% est energy req 7days Weight Status: Overweight APPLZACK MD May 11, 2017 08:34
[2017-05-11] MEDS: DOXYCYCLINE HYCLATE 100 MG TABLET PO SCH ×2 (08:51→21:01)
[2017-05-11] MEDS: NYSTATIN 100,000 UNITS/ML 5 ML ORAL.SUSP. SWSW SCH ×4 (08:51→21:00)
[2017-05-11] MEDS: POTASSIUM CHLORIDE 20MEQ 50 ML IV SCH (08:51)
--- NOTE | 2017-05-11 08:51 | RAD ---
Portable chest, 05/11/2017: History: Pulmonary edema Comparison is made to yesterday's study at 2:38 PM. A left Port-A-Cath extends into the superior vena cava. A right jugular central venous catheter extends into the superior aspect of the right atrium. The heart size is normal. There is unchanged prominence of the pulmonary vascularity and perihilar markings. There is mild persistent atelectasis/infiltrate medially in the left base. No significant volume of pleural fluid is seen. There is no evidence of pneumothorax. No new abnormality is detected IMPRESSION: No significant change since yesterday's study.
[2017-05-11] MEDS: PANTOPRAZOLE 40 MG TABLET.DR. PO SCH (08:52)
[2017-05-11] MEDS: VENLAFAXINE XR 37.5 MG CAP.ER.24H. PO SCH (08:52)
[2017-05-11] MEDS: ATORVASTATIN CALCIUM 40 MG TABLET. PO SCH (08:52)
[2017-05-11] MEDS: LEVOTHYROXINE 75 MCG TABLET PO SCH (08:52)
[2017-05-11] MEDS: METOPROLOL TART IMMED RELEASE 25 MG TABLET. PO SCH ×2 (08:52→21:00)
[2017-05-11] MEDS: diazePAM 5 MG TABLET PO SCH ×3 (08:52→21:01)
[2017-05-11] MEDS: ACYCLOVIR 200 MG CAPSULE. PO SCH ×3 (08:53→21:01)
--- NOTE | 2017-05-11 11:06 | PDOC ---
PULMONARY PROGRESS NOTES Subjective PT S/P CODE FOR V TACH, HAD SHOCKED MULTIPLE TIMES WAS PLACED ON BIPAP LAST NIGHT FOR DYSPNEA/ ON LASIX/DOBUTAMINE Vitals Vital Signs Date Time Temp Pulse Resp B/P (MAP) Pulse Ox O2 Delivery O2 Flow Rate FiO2 05/11/17 10:00 57 22 116/65 (82) 96 Nasal Cannula 2.0 05/11/17 08:00 97.6 97.6 General: Lethargic Lungs: Other (crackles bases) Cardiovascular: S1, S2 Abdomen: Soft Extremities: No Edema Skin: Warm Labs Laboratory Tests Test 05/09/17 14:30 05/10/17 06:10 05/10/17 19:54 05/11/17 05:00 Sodium Level 136 mmol/L (136-145) 134 mmol/L (136-145) 131 mmol/L (136-145) Potassium Level 4.7 mmol/L (3.5-5.1) 3.6 mmol/L (3.5-5.1) 3.8 mmol/L (3.5-5.1) Chloride Level 108 mmol/L (98-107) 105 mmol/L (98-107) 100 mmol/L (98-107) Carbon Dioxide Level 18 mmol/L (21-32) 19 mmol/L (21-32) 22 mmol/L (21-32) Anion Gap 10 (6-14) 10 (6-14) 9 (6-14) Blood Urea Nitrogen 9 mg/dL (7-20) 6 mg/dL (7-20) 9 mg/dL (7-20) Creatinine 1.0 mg/dL (0.6-1.0) 0.9 mg/dL (0.6-1.0) 1.0 mg/dL (0.6-1.0) Estimated GFR (Cockcroft-Gault) 54.2 61.2 54.2 Glucose Level 132 mg/dL (70-99) 154 mg/dL (70-99) 177 mg/dL (70-99) Calcium Level 7.5 mg/dL (8.5-10.1) 7.5 mg/dL (8.5-10.1) 7.3 mg/dL (8.5-10.1) Phosphorus Level 1.1 mg/dL (2.6-4.7) 1.9 mg/dL (2.6-4.7) 2.2 mg/dL (2.6-4.7) Magnesium Level 1.9 mg/dL (1.8-2.4) 2.2 mg/dL (1.8-2.4) 1.7 mg/dL (1.8-2.4) White Blood Count 2.4 x10^3/uL (4.0-11.0) 2.9 x10^3/uL (4.0-11.0) Red Blood Count 2.59 x10^6/uL (3.50-5.40) 2.76 x10^6/uL (3.50-5.40) Hemoglobin 8.8 g/dL (12.0-15.5) 9.3 g/dL (12.0-15.5) Hematocrit 25.8 % (36.0-47.0) 27.1 % (36.0-47.0) Mean Corpuscular Volume 100 fL (79-100) 98 fL (79-100) Mean Corpuscular Hemoglobin 34 pg (25-35) 34 pg (25-35) Mean Corpuscular Hemoglobin Concent 34 g/dL (31-37) 34 g/dL (31-37) Red Cell Distribution Width 20.8 % (11.5-14.5) 20.7 % (11.5-14.5) Platelet Count 25 x10^3/uL (140-400) 27 x10^3/uL (140-400) BUN/Creatinine Ratio 7 (6-20) 9 (6-20) Total Bilirubin 0.3 mg/dL (0.2-1.0) 0.3 mg/dL (0.2-1.0) Aspartate Amino Transf (AST/SGOT) 56 U/L (15-37) 34 U/L (15-37) Alanine Aminotransferase (ALT/SGPT) 39 U/L (14-59) 34 U/L (14-59) Alkaline Phosphatase 73 U/L (46-116) 77 U/L (46-116) Total Protein 5.4 g/dL (6.4-8.2) 5.7 g/dL (6.4-8.2) Albumin 2.1 g/dL (3.4-5.0) 2.2 g/dL (3.4-5.0) Albumin/Globulin Ratio 0.6 (1.0-1.7) 0.6 (1.0-1.7) O2 Saturation 89 % (92-99) Arterial Blood pH 7.36 (7.35-7.45) Arterial Blood pCO2 at Patient Temp 27 mmHg (35-46) Arterial Blood pO2 at Patient Temp 61 mmHg (65-108) Arterial Blood HCO3 15 mmol/L (21-28) Arterial Blood Base Excess -9 mmol/L (-3-3) FiO2 44 Neutrophils (%) (Auto) 64 % (31-73) Lymphocytes (%) (Auto) 17 % (24-48) Monocytes (%) (Auto) 19 % (0-9) Eosinophils (%) (Auto) 0 % (0-3) Basophils (%) (Auto) 0 % (0-3) Neutrophils # (Auto) 1.9 x10^3uL (1.8-7.7) Lymphocytes # (Auto) 0.5 x10^3/uL (1.0-4.8) Monocytes # (Auto) 0.6 x10^3/uL (0.0-1.1) Eosinophils # (Auto) 0.0 x10^3/uL (0.0-0.7) Basophils # (Auto) 0.0 x10^3/uL (0.0-0.2) Triglycerides Level 121 mg/dL (0-150) Laboratory Tests Test 05/10/17 19:54 05/11/17 05:00 O2 Saturation 89 % (92-99) Arterial Blood pH 7.36 (7.35-7.45) Arterial Blood pCO2 at Patient Temp 27 mmHg (35-46) Arterial Blood pO2 at Patient Temp 61 mmHg (65-108) Arterial Blood HCO3 15 mmol/L (21-28) Arterial Blood Base Excess -9 mmol/L (-3-3) FiO2 44 White Blood Count 2.9 x10^3/uL (4.0-11.0) Red Blood Count 2.76 x10^6/uL (3.50-5.40) Hemoglobin 9.3 g/dL (12.0-15.5) Hematocrit 27.1 % (36.0-47.0) Mean Corpuscular Volume 98 fL (79-100) Mean Corpuscular Hemoglobin 34 pg (25-35) Mean Corpuscular Hemoglobin Concent 34 g/dL (31-37) Red Cell Distribution Width 20.7 % (11.5-14.5) Platelet Count 27 x10^3/uL (140-400) Neutrophils (%) (Auto) 64 % (31-73) Lymphocytes (%) (Auto) 17 % (24-48) Monocytes (%) (Auto) 19 % (0-9) Eosinophils (%) (Auto) 0 % (0-3) Basophils (%) (Auto) 0 % (0-3) Neutrophils # (Auto) 1.9 x10^3uL (1.8-7.7) Lymphocytes # (Auto) 0.5 x10^3/uL (1.0-4.8) Monocytes # (Auto) 0.6 x10^3/uL (0.0-1.1) Eosinophils # (Auto) 0.0 x10^3/uL (0.0-0.7) Basophils # (Auto) 0.0 x10^3/uL (0.0-0.2) Sodium Level 131 mmol/L (136-145) Potassium Level 3.8 mmol/L (3.5-5.1) Chloride Level 100 mmol/L (98-107) Carbon Dioxide Level 22 mmol/L (21-32) Anion Gap 9 (6-14) Blood Urea Nitrogen 9 mg/dL (7-20) Creatinine 1.0 mg/dL (0.6-1.0) Estimated GFR (Cockcroft-Gault) 54.2 BUN/Creatinine Ratio 9 (6-20) Glucose Level 177 mg/dL (70-99) Calcium Level 7.3 mg/dL (8.5-10.1) Phosphorus Level 2.2 mg/dL (2.6-4.7) Magnesium Level 1.7 mg/dL (1.8-2.4) Total Bilirubin 0.3 mg/dL (0.2-1.0) Aspartate Amino Transf (AST/SGOT) 34 U/L (15-37) Alanine Aminotransferase (ALT/SGPT) 34 U/L (14-59) Alkaline Phosphatase 77 U/L (46-116) Total Protein 5.7 g/dL (6.4-8.2) Albumin 2.2 g/dL (3.4-5.0) Albumin/Globulin Ratio 0.6 (1.0-1.7) Triglycerides Level 121 mg/dL (0-150) Medications Active Scripts Medications Dose Route/Sig Max Daily Dose Days Date Category Levofloxacin 500 Mg Tablet 500 Mg PO DAILY 05/05/17 Reported Tramadol Hcl 50 Mg Tablet 50 Mg PO Q6H PRN 05/05/17 Reported Ondansetron Hcl 4 Mg Tablet 8 Mg PO BID PRN 05/05/17 Reported [place] 5-325 Tablet (Acetaminophen/Hydrocodone Bitart) 1 Each Tablet 1-2 Tab PO Q4HRS PRN 10/19/16 Reported Atorvastatin Calcium 40 Mg Tablet 1 Tab PO DAILY 10/18/15 Reported Metoprolol Tartrate 25 Mg Tablet 1 Tab PO BID 10/18/15 Reported Pantoprazole Sodium 40 Mg Tablet.dr 1 Tab PO DAILY 04/26/15 Reported Diazepam 5 Mg Tablet 5 Mg PO TID 03/07/15 Reported Venlafaxine Hcl Er (Venlafaxine Hcl) 75 Mg Cap.er.24h 75 Mg PO DAILY 03/07/15 Reported Synthroid (Levothyroxine Sodium) 75 Mcg Tablet 75 Mcg PO DAILYAC 03/07/15 Reported Impression . 1. Progressive dyspnea, multifactorial secondary to CHF, weakness from her recent chemotherapy and toxicities/ NEW CM EF 25 % 2. Stage 4 Colon cancer. 3. Leukopenia/ thrombocytopenia secondary to chemotherapy. 4. Thrombocytopenia. 5. Acute renal failure, 6. Urinary tract infection. 7. Protein malnutrition present upon admission. 8. CODE BLUE ,V- TACH PER DR ASHRAF 9. Mild interstitial edema Plan . PT NOT TO BE INTUBATED, ONLY CHEMICAL CODE SPOKE WITH DR MIRZA AND FAMILY ON DOBUTAMINE/ LASIX F/U CXR NEEDED NOT A BEST CANDIDATE FOR CATH AT PRESENT / PLT STILL LOW PROGNOSIS IS POOR FOLLOW [facility] INPUT SUPPORTIVE CARE D/W FAMILY MG MCKENNA MD May 11, 2017 11:06
[2017-05-11] MEDS: ONDANSETRON ODT 4 MG TAB.RAPDIS. PO PRN (11:52)
[2017-05-11] MEDS: TPN PER PHARMACY MC PRN (12:45)
[2017-05-11] MEDS ORDERED: POTASSIUM PHOSPHATE DIBASIC 13.6 MMOL in IV DEXTROSE 5% 100 ML IV ONE (13:00)
--- NOTE | 2017-05-11 17:14 | PDOC ---
PROGRESS NOTES Subjective Subjective The patient feels a little better today. The blood pressure has been labile and drips have been adjusted Objective Objective Vital Signs Date Time Temp Pulse Resp B/P (MAP) Pulse Ox O2 Delivery O2 Flow Rate FiO2 05/11/17 17:00 59 24 111/57 (75) 92 Nasal Cannula 2.0 05/11/17 16:00 98.0 98.0 Intake and Output 05/12/17 07:00 Intake Total 2032.59 ml Output Total 1790 ml Balance 242.59 ml Intake Oral 250 ml IV Total 1782.59 ml Output Urine Total 1760 ml Emesis 30 ml Physical Exam Physical Exam No significant changes in cardiac exam Assessment Assessment The patient seems to be slowly improving. Will decrease the dobutamine drip to 2.5 mics per KG per minute and switched the amiodarone by mouth. Continue with the lidocaine drip until tomorrow. Tomorrow I may start the patient on Mexitil in conjunction with the amiodarone. Comment Review of Relevant I have reviewed the following items armida (where applicable) has been applied. Labs Laboratory Tests Test 05/10/17 06:10 05/10/17 19:54 05/11/17 05:00 White Blood Count 2.4 x10^3/uL (4.0-11.0) 2.9 x10^3/uL (4.0-11.0) Red Blood Count 2.59 x10^6/uL (3.50-5.40) 2.76 x10^6/uL (3.50-5.40) Hemoglobin 8.8 g/dL (12.0-15.5) 9.3 g/dL (12.0-15.5) Hematocrit 25.8 % (36.0-47.0) 27.1 % (36.0-47.0) Mean Corpuscular Volume 100 fL (79-100) 98 fL (79-100) Mean Corpuscular Hemoglobin 34 pg (25-35) 34 pg (25-35) Mean Corpuscular Hemoglobin Concent 34 g/dL (31-37) 34 g/dL (31-37) Red Cell Distribution Width 20.8 % (11.5-14.5) 20.7 % (11.5-14.5) Platelet Count 25 x10^3/uL (140-400) 27 x10^3/uL (140-400) Sodium Level 134 mmol/L (136-145) 131 mmol/L (136-145) Potassium Level 3.6 mmol/L (3.5-5.1) 3.8 mmol/L (3.5-5.1) Chloride Level 105 mmol/L (98-107) 100 mmol/L (98-107) Carbon Dioxide Level 19 mmol/L (21-32) 22 mmol/L (21-32) Anion Gap 10 (6-14) 9 (6-14) Blood Urea Nitrogen 6 mg/dL (7-20) 9 mg/dL (7-20) Creatinine 0.9 mg/dL (0.6-1.0) 1.0 mg/dL (0.6-1.0) Estimated GFR (Cockcroft-Gault) 61.2 54.2 BUN/Creatinine Ratio 7 (6-20) 9 (6-20) Glucose Level 154 mg/dL (70-99) 177 mg/dL (70-99) Calcium Level 7.5 mg/dL (8.5-10.1) 7.3 mg/dL (8.5-10.1) Phosphorus Level 1.9 mg/dL (2.6-4.7) 2.2 mg/dL (2.6-4.7) Magnesium Level 2.2 mg/dL (1.8-2.4) 1.7 mg/dL (1.8-2.4) Total Bilirubin 0.3 mg/dL (0.2-1.0) 0.3 mg/dL (0.2-1.0) Aspartate Amino Transf (AST/SGOT) 56 U/L (15-37) 34 U/L (15-37) Alanine Aminotransferase (ALT/SGPT) 39 U/L (14-59) 34 U/L (14-59) Alkaline Phosphatase 73 U/L (46-116) 77 U/L (46-116) Total Protein 5.4 g/dL (6.4-8.2) 5.7 g/dL (6.4-8.2) Albumin 2.1 g/dL (3.4-5.0) 2.2 g/dL (3.4-5.0) Albumin/Globulin Ratio 0.6 (1.0-1.7) 0.6 (1.0-1.7) O2 Saturation 89 % (92-99) Arterial Blood pH 7.36 (7.35-7.45) Arterial Blood pCO2 at Patient Temp 27 mmHg (35-46) Arterial Blood pO2 at Patient Temp 61 mmHg (65-108) Arterial Blood HCO3 15 mmol/L (21-28) Arterial Blood Base Excess -9 mmol/L (-3-3) FiO2 44 Neutrophils (%) (Auto) 64 % (31-73) Lymphocytes (%) (Auto) 17 % (24-48) Monocytes (%) (Auto) 19 % (0-9) Eosinophils (%) (Auto) 0 % (0-3) Basophils (%) (Auto) 0 % (0-3) Neutrophils # (Auto) 1.9 x10^3uL (1.8-7.7) Lymphocytes # (Auto) 0.5 x10^3/uL (1.0-4.8) Monocytes # (Auto) 0.6 x10^3/uL (0.0-1.1) Eosinophils # (Auto) 0.0 x10^3/uL (0.0-0.7) Basophils # (Auto) 0.0 x10^3/uL (0.0-0.2) Triglycerides Level 121 mg/dL (0-150) Laboratory Tests Test 05/10/17 19:54 05/11/17 05:00 O2 Saturation 89 % (92-99) Arterial Blood pH 7.36 (7.35-7.45) Arterial Blood pCO2 at Patient Temp 27 mmHg (35-46) Arterial Blood pO2 at Patient Temp 61 mmHg (65-108) Arterial Blood HCO3 15 mmol/L (21-28) Arterial Blood Base Excess -9 mmol/L (-3-3) FiO2 44 White Blood Count 2.9 x10^3/uL (4.0-11.0) Red Blood Count 2.76 x10^6/uL (3.50-5.40) Hemoglobin 9.3 g/dL (12.0-15.5) Hematocrit 27.1 % (36.0-47.0) Mean Corpuscular Volume 98 fL (79-100) Mean Corpuscular Hemoglobin 34 pg (25-35) Mean Corpuscular Hemoglobin Concent 34 g/dL (31-37) Red Cell Distribution Width 20.7 % (11.5-14.5) Platelet Count 27 x10^3/uL (140-400) Neutrophils (%) (Auto) 64 % (31-73) Lymphocytes (%) (Auto) 17 % (24-48) Monocytes (%) (Auto) 19 % (0-9) Eosinophils (%) (Auto) 0 % (0-3) Basophils (%) (Auto) 0 % (0-3) Neutrophils # (Auto) 1.9 x10^3uL (1.8-7.7) Lymphocytes # (Auto) 0.5 x10^3/uL (1.0-4.8) Monocytes # (Auto) 0.6 x10^3/uL (0.0-1.1) Eosinophils # (Auto) 0.0 x10^3/uL (0.0-0.7) Basophils # (Auto) 0.0 x10^3/uL (0.0-0.2) Sodium Level 131 mmol/L (136-145) Potassium Level 3.8 mmol/L (3.5-5.1) Chloride Level 100 mmol/L (98-107) Carbon Dioxide Level 22 mmol/L (21-32) Anion Gap 9 (6-14) Blood Urea Nitrogen 9 mg/dL (7-20) Creatinine 1.0 mg/dL (0.6-1.0) Estimated GFR (Cockcroft-Gault) 54.2 BUN/Creatinine Ratio 9 (6-20) Glucose Level 177 mg/dL (70-99) Calcium Level 7.3 mg/dL (8.5-10.1) Phosphorus Level 2.2 mg/dL (2.6-4.7) Magnesium Level 1.7 mg/dL (1.8-2.4) Total Bilirubin 0.3 mg/dL (0.2-1.0) Aspartate Amino Transf (AST/SGOT) 34 U/L (15-37) Alanine Aminotransferase (ALT/SGPT) 34 U/L (14-59) Alkaline Phosphatase 77 U/L (46-116) Total Protein 5.7 g/dL (6.4-8.2) Albumin 2.2 g/dL (3.4-5.0) Albumin/Globulin Ratio 0.6 (1.0-1.7) Triglycerides Level 121 mg/dL (0-150) Microbiology 05/06/17 Urine Culture - Final, Complete 05/06/17 Urine Culture Result 1 (MARINE) - Final, Complete Medications Current Medications Ceftriaxone Sodium 1 gm/ Dextrose 50 ml @ 100 mls/hr Q24H IV ; Start 05/05/17 at 18:00; Status UNV Vancomycin HCl (Vanco Per Pharmacy) 1 each PRN DAILY PRN MC SEE COMMENTS Last administered on 05/06/17 12:53; Start 05/05/17 at 18:00; Stop 05/06/17 at 13:10 ; Status DC Ceftriaxone Sodium (Rocephin) 1 gm Q24H IVP Last administered on 05/10/17 18: 25; Start 05/05/17 at 18:00 Sodium Chloride 1,000 ml @ 75 mls/hr [id number] IV Last administered on 04:20; Start 05/05/17 at 18:15; Stop 05/08/17 at 13:44; Status DC Atorvastatin Calcium (Lipitor) 40 mg DAILY PO Last administered on 05/11/17 08:52; Start 05/06/17 at 09:00 Diazepam (Valium) 5 mg TID PO Last administered on 05/11/17 08:52; Start 05/05/17 at 21:00 Levothyroxine Sodium (Synthroid) 75 mcg DAILYAC PO Last administered on 08:52; Start 05/06/17 at 07:30 Metoprolol Tartrate (Lopressor) 25 mg BID PO Last administered on 05/11/17 08 :52; Start 05/05/17 at 21:00 Pantoprazole Sodium (Protonix) 40 mg DAILY PO Last administered on 05/11/17 08:52; Start 05/06/17 at 09:00 Tramadol HCl (Ultram) 50 mg PRN Q6HRS PRN PO PAIN; Start 05/05/17 at 18:15 Ondansetron HCl (Zofran Odt) 8 mg PRN Q12HRS PRN PO NAUSEA/VOMITING Last administered on 05/11/17 11:52; Start 05/05/17 at 18:30 Venlafaxine HCl (Effexor Xr) 75 mg DAILY PO Last administered on 05/11/17 08: 52; Start 05/06/17 at 09:00 Vancomycin HCl 1.75 gm/Dextrose 500 ml @ 250 mls/hr 1X ONCE IV Last administered on 05/05/17 19:21; Start 05/05/17 at 18:30; Stop 05/05/17 at 20:29 ; Status DC Vancomycin HCl 1 gm/Dextrose 250 ml @ 250 mls/hr Q24H IV ; Start 05/06/17 at 19 :30; Stop 05/06/17 at 19:30; Status DC Vancomycin HCl 1 each 1X ONCE MC ; Start 05/07/17 at 19:00; Stop 05/07/17 at 19:01; Status Cancel Acyclovir (Zovirax) 400 mg [id number] PO Last administered on 05/11/17 08:53; Start 05/06/17 at 09:00 Doxycycline Hyclate (Vibra-Tab) 100 mg BID PO Last administered on 05/11/17 08:51; Start 05/06/17 at 14:00 Multi-Ingredient Mouthwash/Gargle (Magic Mouthwash) 10 ml PRN QID PRN PO MOUTH PAIN Last administered on 05/08/17 10:12; Start 05/07/17 at 09:00 Nystatin 5 ml [id number] Last administered on 05/11/17 13:20; Start at 13:00 Potassium Chloride/Dextrose/ Sod Cl 1,000 ml @ 75 mls/hr [id number] IV ; Start at 14:00; Stop 05/08/17 at 16:37; Status DC Potassium Chloride (Klor-Con) 40 meq 1X ONCE PO Last administered on 14:12; Start 05/08/17 at 14:00; Stop 05/08/17 at 14:01; Status DC Amiodarone HCl 900 mg/Dextrose 518 ml @ 34.53 mls/ hr CONT PRN IV SEE I/O RECORD Last administered on 05/09/17 14:28; Start 05/08/17 at 14:45; Stop at 14:29; Status DC Amiodarone HCl 900 mg/Dextrose 518 ml @ 0 mls/hr CONT PRN IV SEE I/O RECORD; Start 05/08/17 at 14:45; Status UNV Sodium Chloride 500 ml @ 500 mls/hr 1X ONCE IV Last administered on 15:30; Start 05/08/17 at 15:30; Stop 05/08/17 at 16:29; Status DC Sodium Bicarbonate 100 meq 1X ONCE IV Last administered on 05/08/17 16:52; Start 05/08/17 at 15:30; Stop 05/08/17 at 15:31; Status DC Magnesium Sulfate/ Dextrose 100 ml @ 100 mls/hr 1X ONCE IV Last administered on 05/08/17 16:00; Start 05/08/17 at 16:00; Stop 05/08/17 at 16:59; Status DC Magnesium Sulfate/ Dextrose 100 ml @ 100 mls/hr 1X ONCE IV Last administered on 05/08/17 16:00; Start 05/08/17 at 16:00; Stop 05/08/17 at 16:59; Status DC Potassium Chloride (Klor-Con) 40 meq [id number] PO ; Start 05/09/17 at 08:00; Stop 05/09/17 at 08:17; Status DC Potassium Chloride (Klor-Con) 40 meq 1X ONCE PO Last administered on 16:53; Start 05/08/17 at 17:00; Stop 05/08/17 at 17:01; Status DC Potassium Chloride/Sodium Chloride 1,000 ml @ 80 mls/hr [id number] IV Last administered on 05/09/17 05:49; Start 05/08/17 at 17:30; Stop 05/09/17 at 18 :27; Status DC Amiodarone HCl 150 mg/Dextrose 103 ml @ 618 mls/hr 1X ONCE IV Last administered on 05/09/17 07:22; Start 05/09/17 at 07:00; Stop 05/09/17 at 07 :09; Status DC Magnesium Sulfate/ Dextrose 50 ml @ 25 mls/hr 1X ONCE IV Last administered on 05/09/17 07:11; Start 05/09/17 at 07:00; Stop 05/09/17 at 08:59; Status DC Potassium Chloride 50 ml @ 25 mls/hr PRN Q2HRS PRN IV K-3.1 TO 3.5 Last administered on 05/09/17 11:44; Start 05/09/17 at 06:45; Stop 05/09/17 at 11 :44; Status DC Potassium Chloride 50 ml @ 25 mls/hr PRN Q2HRS PRN IV K 2.6 TO 3; Start at 06:45 Potassium Chloride 50 ml @ 25 mls/hr PRN Q2HRS PRN IV FOR K<2.6; Start at 08:00 Magnesium Sulfate/ Dextrose 100 ml @ 50 mls/hr PRN DAILY PRN IV MAG<1.8 Last administered on 05/11/17 09:59; Start 05/09/17 at 09:00 Potassium Chloride 50 ml @ 50 mls/hr Q1H IV ; Start 05/09/17 at 08:15; Stop at 10:14; Status Cancel Potassium Chloride 50 ml @ 50 mls/hr DAILY IV Last administered on 05/11/17 08:51; Start 05/10/17 at 09:00; Stop 05/11/17 at 09:59; Status DC Potassium Chloride 50 ml @ 50 mls/hr Q1H IV Last administered on 05/09/17 10: 00; Start 05/09/17 at 09:00; Stop 05/09/17 at 10:59; Status DC Potassium Chloride (Klor-Con) 40 meq 1X ONCE PO ; Start 05/09/17 at 11:00; Stop 05/09/17 at 11:01; Status DC Potassium Chloride/Dextrose/ Sod Cl 1,000 ml @ 75 mls/hr [id number] IV Last administered on 05/10/17 17:58; Start 05/09/17 at 11:00; Stop 05/11/17 at 08 :26; Status DC Calcium Gluconate (Calcium Gluconate) 1,000 mg 1X ONCE IVP Last administered on 05/09/17 14:28; Start 05/09/17 at 14:00; Stop 05/09/17 at 14:01; Status DC Info 1 each PRN DAILY PRN MC SEE COMMENTS Last administered on 05/11/17 12:45 ; Start 05/09/17 at 13:45 Amiodarone HCl 150 mg/Dextrose 103 ml @ 618 mls/hr 1X ONCE IV Last administered on 05/09/17 14:28; Start 05/09/17 at 14:00; Stop 05/09/17 at 14 :09; Status DC Amiodarone HCl (Cordarone) 400 mg BID PO Last administered on 05/11/17 13:20 ; Start 05/09/17 at 21:00 Sodium Chloride 90 meq/Potassium Chloride 50 meq/ Potassium Phosphate 13.6 mmol/ Magnesium Sulfate 10 meq/ Calcium Gluconate 10 meq/ Multivitamins 10 ml/Chromium / Copper/Manganese/ Seleni/Zn 1 ml/ Total Parenteral Nutrition/Amino Acids/ Dextrose/ Fat Emulsion Intravenous 1,387.0013 ml @ 3.625 mls/hr TPN CONT IV ; Start 05/09/17 at 22:00; Status UNV Sodium Chloride 90 meq/Potassium Acetate 70 meq/ Potassium Phosphate 18 mmol/ Magnesium Sulfate 12 meq/Calcium Gluconate 10 meq/ Multivitamins 10 ml/Chromium / Copper/Manganese/ Seleni/Zn 1 ml/ Total Parenteral Nutrition/Amino Acids/ Dextrose/ Fat Emulsion Intravenous 1,512 ml @ 63 mls/hr TPN CONT IV Last administered on 05/09/17 21:39; Start 05/09/17 at 22:00; Stop 05/10/17 at 21 :59; Status DC Magnesium Sulfate/ Dextrose 50 ml @ 25 mls/hr 1X ONCE IV ; Start 05/09/17 at 15:15; Stop 05/09/17 at 17:14; Status DC Procainamide HCl 2000 mg/Dextrose 520 ml @ 31.2 mls/hr CONT PRN IV SEE I/O RECORD Last administered on 05/10/17 22:28; Start 05/09/17 at 16:00 Procainamide HCl 500 mg/Dextrose 55 ml @ 110 mls/hr 1X ONCE IV Last administered on 05/09/17 15:49; Start 05/09/17 at 15:30; Stop 05/09/17 at 15 :59; Status DC Procainamide HCl 2000 mg/Dextrose 520 ml @ 0 mls/hr CONT PRN IV SEE I/O RECORD ; Start 05/09/17 at 15:45; Status UNV Sodium Phosphate 30 mmol/Dextrose 260 ml @ 65 mls/hr 1X ONCE IV ; Start 05/09 at 17:45; Stop 05/09/17 at 21:44; Status Cancel Sodium Phosphate 20 mmol/Dextrose 256.6667 ml @ 64.167 m... 1X ONCE IV Last administered on 05/09/17 18:10; Start 05/09/17 at 17:45; Stop 05/09/17 at 21 :44; Status DC Magnesium Sulfate/ Dextrose 100 ml @ 100 mls/hr 1X ONCE IV Last administered on 05/10/17 01:48; Start 05/10/17 at 02:00; Stop 05/10/17 at 02:59; Status DC Midazolam HCl (Versed) 1 mg PRN Q2HR PRN IV SEDATION; Start 05/10/17 at 02:30 Midazolam HCl (Versed) 2 mg PRN Q2HR PRN IV SEDATION; Start 05/10/17 at 02:30 Amiodarone HCl 900 mg/Dextrose 518 ml @ 0 mls/hr CONT PRN IV SEE I/O RECORD; Start 05/10/17 at 03:45; Status UNV Amiodarone HCl 450 mg/Dextrose 259 ml @ 17.26 mls/ hr CONT PRN IV SEE I/O RECORD Last administered on 05/11/17 05:43; Start 05/10/17 at 04:00 Lidocaine HCl/ Dextrose 500 ml @ 0 mls/hr CONT PRN IV SEE I/O RECORD Last administered on 05/11/17 05:46; Start 05/10/17 at 04:00 Lidocaine HCl (Lidocaine HCl 2% Abboject) 100 mg 1X ONCE IV Last administered on 05/10/17 04:13; Start 05/10/17 at 04:30; Stop 05/10/17 at 04:31; Status DC Amiodarone HCl (Cordarone) 300 mg STK-MED ONCE .ROUTE ; Start 05/09/17 at 23:00 ; Stop 05/10/17 at 11:00; Status DC Atropine Sulfate 1 mg STK-MED ONCE .ROUTE ; Start 05/09/17 at 23:00; Stop at 11:00; Status DC Epinephrine HCl (EPINEPHrine SYRINGE) 3 mg STK-MED ONCE .ROUTE ; Start at 23:00; Stop 05/10/17 at 11:00; Status DC Lidocaine HCl (Lidocaine HCl 2% Abboject) 100 mg STK-MED ONCE .ROUTE ; Start at 23:00; Stop 05/10/17 at 11:00; Status DC Magnesium Sulfate/ Dextrose (Magnesium Sulfate PREMIX 1GM) 2 gm STK-MED ONCE IV ; Start 05/09/17 at 23:00; Stop 05/10/17 at 11:00; Status DC Potassium Phosphate 13.6 mmol/Dextrose 104.5333 ml @ 52.267 m... ONCE ONCE IV Last administered on 05/10/17 15:54; Start 05/10/17 at 14:00; Stop at 15:59; Status DC Sodium Acetate 90 meq/Potassium Chloride 70 meq/ Potassium Phosphate 20.4 mmol/ Magnesium Sulfate 18 meq/ Calcium Gluconate 10 meq/ Multivitamins 10 ml/Chromium / Copper/Manganese/ Seleni/Zn 1 ml/ Total Parenteral Nutrition/Amino Acids/ Dextrose/ Fat Emulsion Intravenous 1,512 ml @ 63 mls/hr TPN CONT IV Last administered on 05/10/17 22:00; Start 05/10/17 at 22:00; Stop 05/11/17 at 21 :59 Lidocaine/Sodium Bicarbonate (Buffered Lidocaine 1%) 20 ml STK-MED ONCE IJ ; Start 05/10/17 at 13:45; Stop 05/10/17 at 13:46; Status DC Lidocaine/Sodium Bicarbonate (Buffered Lidocaine 1%) 3 ml 1X ONCE IJ Last administered on 05/10/17 13:45; Start 05/10/17 at 13:45; Stop 05/10/17 at 13 :57; Status DC Sodium Chloride 250 ml @ 250 mls/hr 1X ONCE IV ; Start 05/10/17 at 13:45; Stop 05/10/17 at 14:44; Status DC Albuterol Sulfate (Ventolin Neb Soln) 2.5 mg 1X ONCE NEB Last administered on 05/10/17 19:54; Start 05/10/17 at 20:00; Stop 05/10/17 at 20:01; Status DC Furosemide (Lasix) 40 mg 1X ONCE IVP Last administered on 05/10/17 21:22; Start 05/10/17 at 21:30; Stop 05/10/17 at 21:31; Status DC Dobutamine HCl/ Dextrose 250 ml @ 0 mls/hr CONT PRN IV SEE I/O RECORD Last administered on 05/10/17 21:59; Start 05/10/17 at 21:15 Sodium Acetate 120 meq/Potassium Chloride 70 meq/ Potassium Phosphate 27.2 mmol/ Magnesium Sulfate 22 meq/ Calcium Gluconate 5 meq/ Multivitamins 10 ml/Chromium / Copper/Manganese/ Seleni/Zn 1 ml/ Total Parenteral Nutrition/Amino Acids/ Dextrose/ Fat Emulsion Intravenous 1,512 ml @ 63 mls/hr TPN CONT IV ; Start 05/11/17 at 22:00; Stop 05/12/17 at 21:59; Status Cancel Potassium Phosphate 13.6 mmol/Dextrose 104.5333 ml @ 52.267 m... ONCE ONCE IV Last administered on 05/11/17 13:24; Start 05/11/17 at 13:00; Stop at 14:59; Status DC Sodium Acetate 120 meq/Potassium Chloride 70 meq/ Potassium Phosphate 25 mmol/ Magnesium Sulfate 22 meq/Calcium Gluconate 5 meq/ Multivitamins 10 ml/Chromium/ Copper/Manganese/ Seleni/Zn 1 ml/ Total Parenteral Nutrition/Amino Acids/ Dextrose/ Fat Emulsion Intravenous 1,512 ml @ 63 mls/hr TPN CONT IV ; Start 05/11/17 at 22:00; Stop 05/12/17 at 21:59 Active Scripts Active Reported Levofloxacin 500 Mg Tablet 500 Mg PO DAILY Tramadol Hcl 50 Mg Tablet 50 Mg PO Q6H PRN Ondansetron Hcl 4 Mg Tablet 8 Mg PO BID PRN [place] 5-325 Tablet (Acetaminophen/Hydrocodone Bitart) 1 Each Tablet 1-2 Tab PO Q4HRS PRN Atorvastatin Calcium 40 Mg Tablet 1 Tab PO DAILY Metoprolol Tartrate 25 Mg Tablet 1 Tab PO BID Pantoprazole Sodium 40 Mg Tablet.dr 1 Tab PO DAILY Diazepam 5 Mg Tablet 5 Mg PO TID Venlafaxine Hcl Er (Venlafaxine Hcl) 75 Mg Cap.er.24h 75 Mg PO DAILY Synthroid (Levothyroxine Sodium) 75 Mcg Tablet 75 Mcg PO DAILYAC Vitals/I & O Vital Sign - Last 24 Hours 05/10/17 05/10/17 05/10/17 05/10/17 17:40 18:00 19:00 19:54 Temp 97.4 97.4 97.4 97.4 Pulse 49 52 52 Resp 17 17 22 B/P (MAP) 148/77 (100) 163/85 (111) 164/82 (109) Pulse Ox 94 94 89 90 O2 Delivery Nasal Cannula Nasal Cannula Nasal Cannula Simple Mask O2 Flow Rate 2.0 2.0 2.0 6.0 05/10/17 05/10/17 05/10/17 05/10/17 20:00 20:00 21:00 21:00 Temp 97.6 97.6 Pulse 54 53 62 Resp 30 32 B/P (MAP) 164/82 (109) 158/82 176/88 (117) Pulse Ox 92 85 O2 Delivery Simple Mask Mask Venturi Mask O2 Flow Rate 6.0 6.0 05/10/17 05/10/17 05/10/17 05/10/17 21:05 22:00 23:00 23:27 Pulse 56 60 Resp 18 18 B/P (MAP) 160/82 (108) 150/68 (95) Pulse Ox 95 98 100 100 O2 Delivery BiPAP/CPAP BiPAP/CPAP BiPAP/CPAP BiPAP/CPAP 05/10/17 05/11/17 05/11/17 05/11/17 23:59 00:00 00:56 01:00 Temp 97.6 97.6 Pulse 56 56 Resp 19 18 B/P (MAP) 150/62 (91) 146/60 (88) Pulse Ox 100 100 100 O2 Delivery BiPAP/CPAP Bi-pap BiPAP/CPAP BiPAP/CPAP 05/11/17 05/11/17 05/11/17 05/11/17 02:00 02:58 03:00 04:00 Pulse 54 57 Resp 17 18 B/P (MAP) 140/58 (85) 140/57 (84) Pulse Ox 100 100 99 O2 Delivery BiPAP/CPAP BiPAP/CPAP BiPAP/CPAP Bi-pap 05/11/17 05/11/17 05/11/17 05/11/17 04:00 05:00 05:25 06:00 Temp 98.1 98.1 Pulse 61 57 80 Resp 19 18 20 B/P (MAP) 142/62 (88) 155/65 (95) 152/66 (94) Pulse Ox 99 99 100 96 O2 Delivery BiPAP/CPAP BiPAP/CPAP BiPAP/CPAP BiPAP/CPAP 05/11/17 05/11/17 05/11/17 05/11/17 07:00 07:55 08:00 08:00 Temp 97.6 97.6 Pulse 62 68 Resp 17 16 B/P (MAP) 146/62 (90) 145/55 (85) Pulse Ox 100 97 99 O2 Delivery BiPAP/CPAP Nasal Cannula Nasal Cannula Nasal Cannula O2 Flow Rate 2.0 2.0 2.0 05/11/17 05/11/17 05/11/17 05/11/17 08:00 08:52 09:00 10:00 Pulse 68 81 68 57 Resp 26 22 B/P (MAP) 145/55 (85) 155/54 125/66 (85) 116/65 (82) Pulse Ox 95 96 O2 Delivery Nasal Cannula Nasal Cannula O2 Flow Rate 2.0 2.0 05/11/17 05/11/17 05/11/17 05/11/17 11:00 12:00 12:00 13:00 Temp 98.0 98.0 Pulse 54 55 58 Resp 17 21 24 B/P (MAP) 112/60 (77) 105/59 (74) 95/50 (65) Pulse Ox 92 92 94 O2 Delivery Nasal Cannula Nasal Cannula Nasal Cannula Nasal Cannula O2 Flow Rate 2.0 2.0 2.0 2.0 05/11/17 05/11/17 05/11/17 05/11/17 13:20 13:30 14:00 15:00 Pulse 57 58 59 56 Resp 25 26 19 B/P (MAP) 95/50 113/58 (76) 105/54 (71) 105/56 (72) Pulse Ox 94 92 91 O2 Delivery Nasal Cannula Nasal Cannula Nasal Cannula O2 Flow Rate 2.0 2.0 2.0 05/11/17 05/11/17 05/11/17 16:00 16:00 17:00 Temp 98.0 98.0 Pulse 59 59 Resp 23 24 B/P (MAP) 104/52 (69) 111/57 (75) Pulse Ox 93 92 O2 Delivery Nasal Cannula Nasal Cannula Nasal Cannula O2 Flow Rate 2.0 2.0 2.0 Intake and Output 05/11/17 05/11/17 05/12/17 15:00 23:00 07:00 Intake Total 350 ml 1682.59 ml Output Total 1410 ml 380 ml Balance -1060 ml 1302.59 ml Nutrition Consultation Dietary Evaluation: Recommendations by RD: PPN/TPN Comments: REC TPN: 225 g dextrose, 60 g AA, 20 g lipid Can dc TPN once PO intake meeting > 75% est needs Expected Outcomes/Goals: TPN infusion initiated and meeting > 75% est needs within 24 - 48 hrs Malnutrition Findings: Food and Nutrition Intake (Mod: <75% est energy req 7days Weight Status: Overweight NEO ASHRAF MD May 11, 2017 17:14
--- NOTE | 2017-05-11 17:26 | PDOC ---
PROGRESS NOTES Subjective Subjective c/c - f/u of colon ca ROS - no CP Objective Objective Vital Signs Date Time Temp Pulse Resp B/P (MAP) Pulse Ox O2 Delivery O2 Flow Rate FiO2 05/11/17 17:00 59 24 111/57 (75) 92 Nasal Cannula 2.0 05/11/17 16:00 98.0 98.0 Intake and Output 05/11/17 07:00 Intake Total 1724 ml Output Total 3275 ml Balance -1551 ml Intake Oral 125 ml IV Total 1599 ml Output Urine Total 3255 ml Stool Total 20 ml Assessment Assessment Assessment/Plan 1. Colon ca -s/p chemo 04/27/17. 2. Urinary tract infection. Appreciate ID management. 3. Neutropenia and thrombocytopenia from chemo 4. had code on floor - was shocked 6 times and has had some brief torsades since being in ICU, not intubated and ok bp and feels ok. Management per Dr Fernando. 5. Progressive dyspnea, multifactorial secondary to CHF, weakness from her recent chemotherapy and toxicities/ NEW CM EF 25 % Comment Review of Relevant I have reviewed the following items armida (where applicable) has been applied. Labs Laboratory Tests Test 05/10/17 06:10 05/10/17 19:54 05/11/17 05:00 White Blood Count 2.4 x10^3/uL (4.0-11.0) 2.9 x10^3/uL (4.0-11.0) Red Blood Count 2.59 x10^6/uL (3.50-5.40) 2.76 x10^6/uL (3.50-5.40) Hemoglobin 8.8 g/dL (12.0-15.5) 9.3 g/dL (12.0-15.5) Hematocrit 25.8 % (36.0-47.0) 27.1 % (36.0-47.0) Mean Corpuscular Volume 100 fL (79-100) 98 fL (79-100) Mean Corpuscular Hemoglobin 34 pg (25-35) 34 pg (25-35) Mean Corpuscular Hemoglobin Concent 34 g/dL (31-37) 34 g/dL (31-37) Red Cell Distribution Width 20.8 % (11.5-14.5) 20.7 % (11.5-14.5) Platelet Count 25 x10^3/uL (140-400) 27 x10^3/uL (140-400) Sodium Level 134 mmol/L (136-145) 131 mmol/L (136-145) Potassium Level 3.6 mmol/L (3.5-5.1) 3.8 mmol/L (3.5-5.1) Chloride Level 105 mmol/L (98-107) 100 mmol/L (98-107) Carbon Dioxide Level 19 mmol/L (21-32) 22 mmol/L (21-32) Anion Gap 10 (6-14) 9 (6-14) Blood Urea Nitrogen 6 mg/dL (7-20) 9 mg/dL (7-20) Creatinine 0.9 mg/dL (0.6-1.0) 1.0 mg/dL (0.6-1.0) Estimated GFR (Cockcroft-Gault) 61.2 54.2 BUN/Creatinine Ratio 7 (6-20) 9 (6-20) Glucose Level 154 mg/dL (70-99) 177 mg/dL (70-99) Calcium Level 7.5 mg/dL (8.5-10.1) 7.3 mg/dL (8.5-10.1) Phosphorus Level 1.9 mg/dL (2.6-4.7) 2.2 mg/dL (2.6-4.7) Magnesium Level 2.2 mg/dL (1.8-2.4) 1.7 mg/dL (1.8-2.4) Total Bilirubin 0.3 mg/dL (0.2-1.0) 0.3 mg/dL (0.2-1.0) Aspartate Amino Transf (AST/SGOT) 56 U/L (15-37) 34 U/L (15-37) Alanine Aminotransferase (ALT/SGPT) 39 U/L (14-59) 34 U/L (14-59) Alkaline Phosphatase 73 U/L (46-116) 77 U/L (46-116) Total Protein 5.4 g/dL (6.4-8.2) 5.7 g/dL (6.4-8.2) Albumin 2.1 g/dL (3.4-5.0) 2.2 g/dL (3.4-5.0) Albumin/Globulin Ratio 0.6 (1.0-1.7) 0.6 (1.0-1.7) O2 Saturation 89 % (92-99) Arterial Blood pH 7.36 (7.35-7.45) Arterial Blood pCO2 at Patient Temp 27 mmHg (35-46) Arterial Blood pO2 at Patient Temp 61 mmHg (65-108) Arterial Blood HCO3 15 mmol/L (21-28) Arterial Blood Base Excess -9 mmol/L (-3-3) FiO2 44 Neutrophils (%) (Auto) 64 % (31-73) Lymphocytes (%) (Auto) 17 % (24-48) Monocytes (%) (Auto) 19 % (0-9) Eosinophils (%) (Auto) 0 % (0-3) Basophils (%) (Auto) 0 % (0-3) Neutrophils # (Auto) 1.9 x10^3uL (1.8-7.7) Lymphocytes # (Auto) 0.5 x10^3/uL (1.0-4.8) Monocytes # (Auto) 0.6 x10^3/uL (0.0-1.1) Eosinophils # (Auto) 0.0 x10^3/uL (0.0-0.7) Basophils # (Auto) 0.0 x10^3/uL (0.0-0.2) Triglycerides Level 121 mg/dL (0-150) Laboratory Tests Test 05/10/17 19:54 05/11/17 05:00 O2 Saturation 89 % (92-99) Arterial Blood pH 7.36 (7.35-7.45) Arterial Blood pCO2 at Patient Temp 27 mmHg (35-46) Arterial Blood pO2 at Patient Temp 61 mmHg (65-108) Arterial Blood HCO3 15 mmol/L (21-28) Arterial Blood Base Excess -9 mmol/L (-3-3) FiO2 44 White Blood Count 2.9 x10^3/uL (4.0-11.0) Red Blood Count 2.76 x10^6/uL (3.50-5.40) Hemoglobin 9.3 g/dL (12.0-15.5) Hematocrit 27.1 % (36.0-47.0) Mean Corpuscular Volume 98 fL (79-100) Mean Corpuscular Hemoglobin 34 pg (25-35) Mean Corpuscular Hemoglobin Concent 34 g/dL (31-37) Red Cell Distribution Width 20.7 % (11.5-14.5) Platelet Count 27 x10^3/uL (140-400) Neutrophils (%) (Auto) 64 % (31-73) Lymphocytes (%) (Auto) 17 % (24-48) Monocytes (%) (Auto) 19 % (0-9) Eosinophils (%) (Auto) 0 % (0-3) Basophils (%) (Auto) 0 % (0-3) Neutrophils # (Auto) 1.9 x10^3uL (1.8-7.7) Lymphocytes # (Auto) 0.5 x10^3/uL (1.0-4.8) Monocytes # (Auto) 0.6 x10^3/uL (0.0-1.1) Eosinophils # (Auto) 0.0 x10^3/uL (0.0-0.7) Basophils # (Auto) 0.0 x10^3/uL (0.0-0.2) Sodium Level 131 mmol/L (136-145) Potassium Level 3.8 mmol/L (3.5-5.1) Chloride Level 100 mmol/L (98-107) Carbon Dioxide Level 22 mmol/L (21-32) Anion Gap 9 (6-14) Blood Urea Nitrogen 9 mg/dL (7-20) Creatinine 1.0 mg/dL (0.6-1.0) Estimated GFR (Cockcroft-Gault) 54.2 BUN/Creatinine Ratio 9 (6-20) Glucose Level 177 mg/dL (70-99) Calcium Level 7.3 mg/dL (8.5-10.1) Phosphorus Level 2.2 mg/dL (2.6-4.7) Magnesium Level 1.7 mg/dL (1.8-2.4) Total Bilirubin 0.3 mg/dL (0.2-1.0) Aspartate Amino Transf (AST/SGOT) 34 U/L (15-37) Alanine Aminotransferase (ALT/SGPT) 34 U/L (14-59) Alkaline Phosphatase 77 U/L (46-116) Total Protein 5.7 g/dL (6.4-8.2) Albumin 2.2 g/dL (3.4-5.0) Albumin/Globulin Ratio 0.6 (1.0-1.7) Triglycerides Level 121 mg/dL (0-150) Microbiology 05/06/17 Urine Culture - Final, Complete 05/06/17 Urine Culture Result 1 (MARINE) - Final, Complete Medications Current Medications Ceftriaxone Sodium 1 gm/ Dextrose 50 ml @ 100 mls/hr Q24H IV ; Start 05/05/17 at 18:00; Status UNV Vancomycin HCl (Vanco Per Pharmacy) 1 each PRN DAILY PRN MC SEE COMMENTS Last administered on 05/06/17 12:53; Start 05/05/17 at 18:00; Stop 05/06/17 at 13:10 ; Status DC Ceftriaxone Sodium (Rocephin) 1 gm Q24H IVP Last administered on 05/10/17 18: 25; Start 05/05/17 at 18:00 Sodium Chloride 1,000 ml @ 75 mls/hr [id number] IV Last administered on 04:20; Start 05/05/17 at 18:15; Stop 05/08/17 at 13:44; Status DC Atorvastatin Calcium (Lipitor) 40 mg DAILY PO Last administered on 05/11/17 08:52; Start 05/06/17 at 09:00 Diazepam (Valium) 5 mg TID PO Last administered on 05/11/17 08:52; Start 05/05/17 at 21:00 Levothyroxine Sodium (Synthroid) 75 mcg DAILYAC PO Last administered on 08:52; Start 05/06/17 at 07:30 Metoprolol Tartrate (Lopressor) 25 mg BID PO Last administered on 05/11/17 08 :52; Start 05/05/17 at 21:00 Pantoprazole Sodium (Protonix) 40 mg DAILY PO Last administered on 05/11/17 08:52; Start 05/06/17 at 09:00 Tramadol HCl (Ultram) 50 mg PRN Q6HRS PRN PO PAIN; Start 05/05/17 at 18:15 Ondansetron HCl (Zofran Odt) 8 mg PRN Q12HRS PRN PO NAUSEA/VOMITING Last administered on 05/11/17 11:52; Start 05/05/17 at 18:30 Venlafaxine HCl (Effexor Xr) 75 mg DAILY PO Last administered on 05/11/17 08: 52; Start 05/06/17 at 09:00 Vancomycin HCl 1.75 gm/Dextrose 500 ml @ 250 mls/hr 1X ONCE IV Last administered on 05/05/17 19:21; Start 05/05/17 at 18:30; Stop 05/05/17 at 20:29 ; Status DC Vancomycin HCl 1 gm/Dextrose 250 ml @ 250 mls/hr Q24H IV ; Start 05/06/17 at 19 :30; Stop 05/06/17 at 19:30; Status DC Vancomycin HCl 1 each 1X ONCE MC ; Start 05/07/17 at 19:00; Stop 05/07/17 at 19:01; Status Cancel Acyclovir (Zovirax) 400 mg [id number] PO Last administered on 05/11/17 08:53; Start 05/06/17 at 09:00 Doxycycline Hyclate (Vibra-Tab) 100 mg BID PO Last administered on 05/11/17 08:51; Start 05/06/17 at 14:00 Multi-Ingredient Mouthwash/Gargle (Magic Mouthwash) 10 ml PRN QID PRN PO MOUTH PAIN Last administered on 05/08/17 10:12; Start 05/07/17 at 09:00 Nystatin 5 ml [id number] Last administered on 05/11/17 13:20; Start at 13:00 Potassium Chloride/Dextrose/ Sod Cl 1,000 ml @ 75 mls/hr [id number] IV ; Start at 14:00; Stop 05/08/17 at 16:37; Status DC Potassium Chloride (Klor-Con) 40 meq 1X ONCE PO Last administered on 14:12; Start 05/08/17 at 14:00; Stop 05/08/17 at 14:01; Status DC Amiodarone HCl 900 mg/Dextrose 518 ml @ 34.53 mls/ hr CONT PRN IV SEE I/O RECORD Last administered on 05/09/17 14:28; Start 05/08/17 at 14:45; Stop at 14:29; Status DC Amiodarone HCl 900 mg/Dextrose 518 ml @ 0 mls/hr CONT PRN IV SEE I/O RECORD; Start 05/08/17 at 14:45; Status UNV Sodium Chloride 500 ml @ 500 mls/hr 1X ONCE IV Last administered on 15:30; Start 05/08/17 at 15:30; Stop 05/08/17 at 16:29; Status DC Sodium Bicarbonate 100 meq 1X ONCE IV Last administered on 05/08/17 16:52; Start 05/08/17 at 15:30; Stop 05/08/17 at 15:31; Status DC Magnesium Sulfate/ Dextrose 100 ml @ 100 mls/hr 1X ONCE IV Last administered on 05/08/17 16:00; Start 05/08/17 at 16:00; Stop 05/08/17 at 16:59; Status DC Magnesium Sulfate/ Dextrose 100 ml @ 100 mls/hr 1X ONCE IV Last administered on 05/08/17 16:00; Start 05/08/17 at 16:00; Stop 05/08/17 at 16:59; Status DC Potassium Chloride (Klor-Con) 40 meq [id number] PO ; Start 05/09/17 at 08:00; Stop 05/09/17 at 08:17; Status DC Potassium Chloride (Klor-Con) 40 meq 1X ONCE PO Last administered on 16:53; Start 05/08/17 at 17:00; Stop 05/08/17 at 17:01; Status DC Potassium Chloride/Sodium Chloride 1,000 ml @ 80 mls/hr [id number] IV Last administered on 05/09/17 05:49; Start 05/08/17 at 17:30; Stop 05/09/17 at 18 :27; Status DC Amiodarone HCl 150 mg/Dextrose 103 ml @ 618 mls/hr 1X ONCE IV Last administered on 05/09/17 07:22; Start 05/09/17 at 07:00; Stop 05/09/17 at 07 :09; Status DC Magnesium Sulfate/ Dextrose 50 ml @ 25 mls/hr 1X ONCE IV Last administered on 05/09/17 07:11; Start 05/09/17 at 07:00; Stop 05/09/17 at 08:59; Status DC Potassium Chloride 50 ml @ 25 mls/hr PRN Q2HRS PRN IV K-3.1 TO 3.5 Last administered on 05/09/17 11:44; Start 05/09/17 at 06:45; Stop 05/09/17 at 11 :44; Status DC Potassium Chloride 50 ml @ 25 mls/hr PRN Q2HRS PRN IV K 2.6 TO 3; Start at 06:45 Potassium Chloride 50 ml @ 25 mls/hr PRN Q2HRS PRN IV FOR K<2.6; Start at 08:00 Magnesium Sulfate/ Dextrose 100 ml @ 50 mls/hr PRN DAILY PRN IV MAG<1.8 Last administered on 05/11/17 09:59; Start 05/09/17 at 09:00 Potassium Chloride 50 ml @ 50 mls/hr Q1H IV ; Start 05/09/17 at 08:15; Stop at 10:14; Status Cancel Potassium Chloride 50 ml @ 50 mls/hr DAILY IV Last administered on 05/11/17 08:51; Start 05/10/17 at 09:00; Stop 05/11/17 at 09:59; Status DC Potassium Chloride 50 ml @ 50 mls/hr Q1H IV Last administered on 05/09/17 10: 00; Start 05/09/17 at 09:00; Stop 05/09/17 at 10:59; Status DC Potassium Chloride (Klor-Con) 40 meq 1X ONCE PO ; Start 05/09/17 at 11:00; Stop 05/09/17 at 11:01; Status DC Potassium Chloride/Dextrose/ Sod Cl 1,000 ml @ 75 mls/hr [id number] IV Last administered on 05/10/17 17:58; Start 05/09/17 at 11:00; Stop 05/11/17 at 08 :26; Status DC Calcium Gluconate (Calcium Gluconate) 1,000 mg 1X ONCE IVP Last administered on 05/09/17 14:28; Start 05/09/17 at 14:00; Stop 05/09/17 at 14:01; Status DC Info 1 each PRN DAILY PRN MC SEE COMMENTS Last administered on 05/11/17 12:45 ; Start 05/09/17 at 13:45 Amiodarone HCl 150 mg/Dextrose 103 ml @ 618 mls/hr 1X ONCE IV Last administered on 05/09/17 14:28; Start 05/09/17 at 14:00; Stop 05/09/17 at 14 :09; Status DC Amiodarone HCl (Cordarone) 400 mg BID PO Last administered on 05/11/17 13:20 ; Start 05/09/17 at 21:00 Sodium Chloride 90 meq/Potassium Chloride 50 meq/ Potassium Phosphate 13.6 mmol/ Magnesium Sulfate 10 meq/ Calcium Gluconate 10 meq/ Multivitamins 10 ml/Chromium / Copper/Manganese/ Seleni/Zn 1 ml/ Total Parenteral Nutrition/Amino Acids/ Dextrose/ Fat Emulsion Intravenous 1,387.0013 ml @ 3.625 mls/hr TPN CONT IV ; Start 05/09/17 at 22:00; Status UNV Sodium Chloride 90 meq/Potassium Acetate 70 meq/ Potassium Phosphate 18 mmol/ Magnesium Sulfate 12 meq/Calcium Gluconate 10 meq/ Multivitamins 10 ml/Chromium / Copper/Manganese/ Seleni/Zn 1 ml/ Total Parenteral Nutrition/Amino Acids/ Dextrose/ Fat Emulsion Intravenous 1,512 ml @ 63 mls/hr TPN CONT IV Last administered on 05/09/17 21:39; Start 05/09/17 at 22:00; Stop 05/10/17 at 21 :59; Status DC Magnesium Sulfate/ Dextrose 50 ml @ 25 mls/hr 1X ONCE IV ; Start 05/09/17 at 15:15; Stop 05/09/17 at 17:14; Status DC Procainamide HCl 2000 mg/Dextrose 520 ml @ 31.2 mls/hr CONT PRN IV SEE I/O RECORD Last administered on 05/10/17 22:28; Start 05/09/17 at 16:00 Procainamide HCl 500 mg/Dextrose 55 ml @ 110 mls/hr 1X ONCE IV Last administered on 05/09/17 15:49; Start 05/09/17 at 15:30; Stop 05/09/17 at 15 :59; Status DC Procainamide HCl 2000 mg/Dextrose 520 ml @ 0 mls/hr CONT PRN IV SEE I/O RECORD ; Start 05/09/17 at 15:45; Status UNV Sodium Phosphate 30 mmol/Dextrose 260 ml @ 65 mls/hr 1X ONCE IV ; Start 05/09 at 17:45; Stop 05/09/17 at 21:44; Status Cancel Sodium Phosphate 20 mmol/Dextrose 256.6667 ml @ 64.167 m... 1X ONCE IV Last administered on 05/09/17 18:10; Start 05/09/17 at 17:45; Stop 05/09/17 at 21 :44; Status DC Magnesium Sulfate/ Dextrose 100 ml @ 100 mls/hr 1X ONCE IV Last administered on 05/10/17 01:48; Start 05/10/17 at 02:00; Stop 05/10/17 at 02:59; Status DC Midazolam HCl (Versed) 1 mg PRN Q2HR PRN IV SEDATION; Start 05/10/17 at 02:30 Midazolam HCl (Versed) 2 mg PRN Q2HR PRN IV SEDATION; Start 05/10/17 at 02:30 Amiodarone HCl 900 mg/Dextrose 518 ml @ 0 mls/hr CONT PRN IV SEE I/O RECORD; Start 05/10/17 at 03:45; Status UNV Amiodarone HCl 450 mg/Dextrose 259 ml @ 17.26 mls/ hr CONT PRN IV SEE I/O RECORD Last administered on 05/11/17 05:43; Start 05/10/17 at 04:00 Lidocaine HCl/ Dextrose 500 ml @ 0 mls/hr CONT PRN IV SEE I/O RECORD Last administered on 05/11/17 05:46; Start 05/10/17 at 04:00 Lidocaine HCl (Lidocaine HCl 2% Abboject) 100 mg 1X ONCE IV Last administered on 05/10/17 04:13; Start 05/10/17 at 04:30; Stop 05/10/17 at 04:31; Status DC Amiodarone HCl (Cordarone) 300 mg STK-MED ONCE .ROUTE ; Start 05/09/17 at 23:00 ; Stop 05/10/17 at 11:00; Status DC Atropine Sulfate 1 mg STK-MED ONCE .ROUTE ; Start 05/09/17 at 23:00; Stop at 11:00; Status DC Epinephrine HCl (EPINEPHrine SYRINGE) 3 mg STK-MED ONCE .ROUTE ; Start at 23:00; Stop 05/10/17 at 11:00; Status DC Lidocaine HCl (Lidocaine HCl 2% Abboject) 100 mg STK-MED ONCE .ROUTE ; Start at 23:00; Stop 05/10/17 at 11:00; Status DC Magnesium Sulfate/ Dextrose (Magnesium Sulfate PREMIX 1GM) 2 gm STK-MED ONCE IV ; Start 05/09/17 at 23:00; Stop 05/10/17 at 11:00; Status DC Potassium Phosphate 13.6 mmol/Dextrose 104.5333 ml @ 52.267 m... ONCE ONCE IV Last administered on 05/10/17 15:54; Start 05/10/17 at 14:00; Stop at 15:59; Status DC Sodium Acetate 90 meq/Potassium Chloride 70 meq/ Potassium Phosphate 20.4 mmol/ Magnesium Sulfate 18 meq/ Calcium Gluconate 10 meq/ Multivitamins 10 ml/Chromium / Copper/Manganese/ Seleni/Zn 1 ml/ Total Parenteral Nutrition/Amino Acids/ Dextrose/ Fat Emulsion Intravenous 1,512 ml @ 63 mls/hr TPN CONT IV Last administered on 05/10/17 22:00; Start 05/10/17 at 22:00; Stop 05/11/17 at 21 :59 Lidocaine/Sodium Bicarbonate (Buffered Lidocaine 1%) 20 ml STK-MED ONCE IJ ; Start 05/10/17 at 13:45; Stop 05/10/17 at 13:46; Status DC Lidocaine/Sodium Bicarbonate (Buffered Lidocaine 1%) 3 ml 1X ONCE IJ Last administered on 05/10/17 13:45; Start 05/10/17 at 13:45; Stop 05/10/17 at 13 :57; Status DC Sodium Chloride 250 ml @ 250 mls/hr 1X ONCE IV ; Start 05/10/17 at 13:45; Stop 05/10/17 at 14:44; Status DC Albuterol Sulfate (Ventolin Neb Soln) 2.5 mg 1X ONCE NEB Last administered on 05/10/17 19:54; Start 05/10/17 at 20:00; Stop 05/10/17 at 20:01; Status DC Furosemide (Lasix) 40 mg 1X ONCE IVP Last administered on 05/10/17 21:22; Start 05/10/17 at 21:30; Stop 05/10/17 at 21:31; Status DC Dobutamine HCl/ Dextrose 250 ml @ 0 mls/hr CONT PRN IV SEE I/O RECORD Last administered on 05/10/17 21:59; Start 05/10/17 at 21:15 Sodium Acetate 120 meq/Potassium Chloride 70 meq/ Potassium Phosphate 27.2 mmol/ Magnesium Sulfate 22 meq/ Calcium Gluconate 5 meq/ Multivitamins 10 ml/Chromium / Copper/Manganese/ Seleni/Zn 1 ml/ Total Parenteral Nutrition/Amino Acids/ Dextrose/ Fat Emulsion Intravenous 1,512 ml @ 63 mls/hr TPN CONT IV ; Start 05/11/17 at 22:00; Stop 05/12/17 at 21:59; Status Cancel Potassium Phosphate 13.6 mmol/Dextrose 104.5333 ml @ 52.267 m... ONCE ONCE IV Last administered on 05/11/17 13:24; Start 05/11/17 at 13:00; Stop at 14:59; Status DC Sodium Acetate 120 meq/Potassium Chloride 70 meq/ Potassium Phosphate 25 mmol/ Magnesium Sulfate 22 meq/Calcium Gluconate 5 meq/ Multivitamins 10 ml/Chromium/ Copper/Manganese/ Seleni/Zn 1 ml/ Total Parenteral Nutrition/Amino Acids/ Dextrose/ Fat Emulsion Intravenous 1,512 ml @ 63 mls/hr TPN CONT IV ; Start 05/11/17 at 22:00; Stop 05/12/17 at 21:59 Active Scripts Active Reported Levofloxacin 500 Mg Tablet 500 Mg PO DAILY Tramadol Hcl 50 Mg Tablet 50 Mg PO Q6H PRN Ondansetron Hcl 4 Mg Tablet 8 Mg PO BID PRN [place] 5-325 Tablet (Acetaminophen/Hydrocodone Bitart) 1 Each Tablet 1-2 Tab PO Q4HRS PRN Atorvastatin Calcium 40 Mg Tablet 1 Tab PO DAILY Metoprolol Tartrate 25 Mg Tablet 1 Tab PO BID Pantoprazole Sodium 40 Mg Tablet.dr 1 Tab PO DAILY Diazepam 5 Mg Tablet 5 Mg PO TID Venlafaxine Hcl Er (Venlafaxine Hcl) 75 Mg Cap.er.24h 75 Mg PO DAILY Synthroid (Levothyroxine Sodium) 75 Mcg Tablet 75 Mcg PO DAILYAC Vitals/I & O Vital Sign - Last 24 Hours 05/10/17 05/10/17 05/10/17 05/10/17 17:40 18:00 19:00 19:54 Temp 97.4 97.4 97.4 97.4 Pulse 49 52 52 Resp 17 17 22 B/P (MAP) 148/77 (100) 163/85 (111) 164/82 (109) Pulse Ox 94 94 89 90 O2 Delivery Nasal Cannula Nasal Cannula Nasal Cannula Simple Mask O2 Flow Rate 2.0 2.0 2.0 6.0 05/10/17 05/10/17 05/10/17 05/10/17 20:00 20:00 21:00 21:00 Temp 97.6 97.6 Pulse 54 53 62 Resp 30 32 B/P (MAP) 164/82 (109) 158/82 176/88 (117) Pulse Ox 92 85 O2 Delivery Simple Mask Mask Venturi Mask O2 Flow Rate 6.0 6.0 05/10/17 05/10/17 05/10/17 05/10/17 21:05 22:00 23:00 23:27 Pulse 56 60 Resp 18 18 B/P (MAP) 160/82 (108) 150/68 (95) Pulse Ox 95 98 100 100 O2 Delivery BiPAP/CPAP BiPAP/CPAP BiPAP/CPAP BiPAP/CPAP 05/10/17 05/11/17 05/11/17 05/11/17 23:59 00:00 00:56 01:00 Temp 97.6 97.6 Pulse 56 56 Resp 19 18 B/P (MAP) 150/62 (91) 146/60 (88) Pulse Ox 100 100 100 O2 Delivery BiPAP/CPAP Bi-pap BiPAP/CPAP BiPAP/CPAP 05/11/17 05/11/17 05/11/17 05/11/17 02:00 02:58 03:00 04:00 Pulse 54 57 Resp 17 18 B/P (MAP) 140/58 (85) 140/57 (84) Pulse Ox 100 100 99 O2 Delivery BiPAP/CPAP BiPAP/CPAP BiPAP/CPAP Bi-pap 05/11/17 05/11/17 05/11/17 05/11/17 04:00 05:00 05:25 06:00 Temp 98.1 98.1 Pulse 61 57 80 Resp 19 18 20 B/P (MAP) 142/62 (88) 155/65 (95) 152/66 (94) Pulse Ox 99 99 100 96 O2 Delivery BiPAP/CPAP BiPAP/CPAP BiPAP/CPAP BiPAP/CPAP 05/11/17 05/11/17 05/11/17 05/11/17 07:00 07:55 08:00 08:00 Temp 97.6 97.6 Pulse 62 68 Resp 17 16 B/P (MAP) 146/62 (90) 145/55 (85) Pulse Ox 100 97 99 O2 Delivery BiPAP/CPAP Nasal Cannula Nasal Cannula Nasal Cannula O2 Flow Rate 2.0 2.0 2.0 05/11/17 05/11/17 05/11/17 05/11/17 08:00 08:52 09:00 10:00 Pulse 68 81 68 57 Resp 26 22 B/P (MAP) 145/55 (85) 155/54 125/66 (85) 116/65 (82) Pulse Ox 95 96 O2 Delivery Nasal Cannula Nasal Cannula O2 Flow Rate 2.0 2.0 05/11/17 05/11/17 05/11/17 05/11/17 11:00 12:00 12:00 13:00 Temp 98.0 98.0 Pulse 54 55 58 Resp 17 21 24 B/P (MAP) 112/60 (77) 105/59 (74) 95/50 (65) Pulse Ox 92 92 94 O2 Delivery Nasal Cannula Nasal Cannula Nasal Cannula Nasal Cannula O2 Flow Rate 2.0 2.0 2.0 2.0 05/11/17 05/11/17 05/11/17 05/11/17 13:20 13:30 14:00 15:00 Pulse 57 58 59 56 Resp 25 26 19 B/P (MAP) 95/50 113/58 (76) 105/54 (71) 105/56 (72) Pulse Ox 94 92 91 O2 Delivery Nasal Cannula Nasal Cannula Nasal Cannula O2 Flow Rate 2.0 2.0 2.0 05/11/17 05/11/17 05/11/17 16:00 16:00 17:00 Temp 98.0 98.0 Pulse 59 59 Resp 23 24 B/P (MAP) 104/52 (69) 111/57 (75) Pulse Ox 93 92 O2 Delivery Nasal Cannula Nasal Cannula Nasal Cannula O2 Flow Rate 2.0 2.0 2.0 Intake and Output 05/10/17 05/10/17 05/11/17 15:00 23:00 07:00 Intake Total 125 ml 1599 ml Output Total 210 ml 1495 ml 1570 ml Balance -210 ml -1370 ml 29 ml Nutrition Consultation Dietary Evaluation: Recommendations by RD: PPN/TPN Comments: REC TPN: 225 g dextrose, 60 g AA, 20 g lipid Can dc TPN once PO intake meeting > 75% est needs Expected Outcomes/Goals: TPN infusion initiated and meeting > 75% est needs within 24 - 48 hrs Malnutrition Findings: Food and Nutrition Intake (Mod: <75% est energy req 7days Weight Status: Overweight DANIEL MORALEZ MD May 11, 2017 17:26
[2017-05-11] MEDS: cefTRIAXone IV Push 1 GM VIAL. IVP SCH (18:08)
[2017-05-11] MEDS: PROCAINAMIDE 2,000 MG in IV DEXTROSE 5% 500 ML IV PRN (21:55)
[2017-05-11] MEDS ORDERED: [UNRECOGNIZED DRUG - OTHER] IV SCH ×10 (22:00)
[2017-05-11] MEDS ORDERED: AMINO ACIDS IV SCH ×20 (22:00)
[2017-05-11] MEDS ORDERED: TOTAL PARENTERAL NUTRITION IV SCH ×20 (22:00)
[2017-05-11] MEDS ORDERED: [UNRECOGNIZED DRUG - OTHER] IV SCH ×10 (22:00)
[2017-05-11] MEDS ORDERED: DEXTROSE 70% IV SCH ×20 (22:00)
[2017-05-12] VITALS (23 sets, daily range): BP systolic 96–134; BP diastolic 54–70
[2017-05-12] MEDS: LIDOCAINE 2GM/500ML PREMIX 500 ML IV PRN (05:40)
[2017-05-12 06:04] LABS: ALBUMIN 1.8 g/dL (3.4-5.0); ALBUMIN/GLOBULIN RATIO 0.6 (1.0-1.7); CALCIUM 7.4 mg/dL (8.5-10.1); CREATININE 0.8 mg/dL (0.6-1.0); GFR 70.1; MAGNESIUM 2.2 mg/dL (1.8-2.4); PHOSPHORUS 2.9 mg/dL (2.6-4.7); POTASSIUM 4.6 mmol/L (3.5-5.1); TOTAL BILIRUBIN 0.4 mg/dL (0.2-1.0)
[2017-05-12 07:05] LABS: BASO % 0 % (0-3); EOS % 0 % (0-3); HEMATOCRIT 25.2 % (36.0-47.0); HEMOGLOBIN 8.6 g/dL (12.0-15.5); LYMPH # 0.8 x10^3/uL (1.0-4.8); LYMPH % 23 % (24-48); MEAN CORPUSCULAR HEMOGLOBIN 34 pg (25-35); MEAN CORPUSCULAR HGB CONC 34 g/dL (31-37); MEAN CORPUSCULAR VOLUME 100 fL (79-100); MONO % 22 % (0-9); NEUT % 55 % (31-73); PLATELET COUNT 41 x10^3/uL (140-400); RED BLOOD COUNT 2.52 x10^6/uL (3.50-5.40); RED CELL DISTRIBUTION WIDTH 21.1 % (11.5-14.5); WHITE BLOOD COUNT 3.5 x10^3/uL (4.0-11.0)
--- NOTE | 2017-05-12 07:50 | PDOC ---
Infectious Disease Note Subjective Subjective pt feeling ok, did awaken yesterday and vomited once ROS ROS GEN: Denies fevers, chills, sweats HEENT: Denies blurred vision, sore throat CV: Denies chest pain RESP: Denies shortness of air, cough NEURO: Denies confusion, dizziness MSK: Denies weakness, joint pain/swelling Vital Sign Vital Signs Vital Signs Date Time Temp Pulse Resp B/P (MAP) Pulse Ox O2 Delivery O2 Flow Rate FiO2 05/12/17 07:00 73 21 113/66 (82) 94 Nasal Cannula 2.0 05/12/17 04:12 97.9 97.9 Physical Exam PHYSICAL EXAM GENERAL: NAD, Alert HEENT: PERRL, OC/OP -dry. Lips with some crusting. Dentures NECK: Supple, no JVD, no LN LUNGS: Clear. on 02 HEART: S1S2, no gallop, no murmur ABD: Soft, NT, no organomegaly, no rebound, Ostomy [place] EXT: No edema, no cyanosis [employer]NAGER: Alert, oriented x 3, no focal neurologic deficit SKIN: No rash IV: Port left chest - clean. [facility] Labs Lab Laboratory Tests Test 05/12/17 05:00 White Blood Count 3.5 x10^3/uL (4.0-11.0) Red Blood Count 2.52 x10^6/uL (3.50-5.40) Hemoglobin 8.6 g/dL (12.0-15.5) Hematocrit 25.2 % (36.0-47.0) Mean Corpuscular Volume 100 fL (79-100) Mean Corpuscular Hemoglobin 34 pg (25-35) Mean Corpuscular Hemoglobin Concent 34 g/dL (31-37) Red Cell Distribution Width 21.1 % (11.5-14.5) Platelet Count 41 x10^3/uL (140-400) Neutrophils (%) (Auto) 55 % (31-73) Lymphocytes (%) (Auto) 23 % (24-48) Monocytes (%) (Auto) 22 % (0-9) Eosinophils (%) (Auto) 0 % (0-3) Basophils (%) (Auto) 0 % (0-3) Neutrophils # (Auto) 1.9 x10^3uL (1.8-7.7) Lymphocytes # (Auto) 0.8 x10^3/uL (1.0-4.8) Monocytes # (Auto) 0.8 x10^3/uL (0.0-1.1) Eosinophils # (Auto) 0.0 x10^3/uL (0.0-0.7) Basophils # (Auto) 0.0 x10^3/uL (0.0-0.2) Sodium Level 134 mmol/L (136-145) Potassium Level 4.6 mmol/L (3.5-5.1) Chloride Level 101 mmol/L (98-107) Carbon Dioxide Level 26 mmol/L (21-32) Anion Gap 7 (6-14) Blood Urea Nitrogen 11 mg/dL (7-20) Creatinine 0.8 mg/dL (0.6-1.0) Estimated GFR (Cockcroft-Gault) 70.1 BUN/Creatinine Ratio 14 (6-20) Glucose Level 108 mg/dL (70-99) Calcium Level 7.4 mg/dL (8.5-10.1) Phosphorus Level 2.9 mg/dL (2.6-4.7) Magnesium Level 2.2 mg/dL (1.8-2.4) Total Bilirubin 0.4 mg/dL (0.2-1.0) Aspartate Amino Transf (AST/SGOT) 25 U/L (15-37) Alanine Aminotransferase (ALT/SGPT) 24 U/L (14-59) Alkaline Phosphatase 82 U/L (46-116) Total Protein 5.0 g/dL (6.4-8.2) Albumin 1.8 g/dL (3.4-5.0) Albumin/Globulin Ratio 0.6 (1.0-1.7) Objective Assessment S/p code 05/09 - V - tach s/p shock now on Lidocaine/Procaine/Amiodarone/ Dobutamine Neutropenia and thrombocytopenia from chemo.- improved Fever, chills prior to admit bronchitis possible early pneumonia - CXR improving - seen this am Pyruia and dysuria Mucositis dysphagia History of colon cancer stage 4, status post surgery and recently on chemotherapy. Oral mucositis. Renal insufficiency. Hyperlipidemia. Hypertension. Degenerative joint disease. Hypothyroidism. Plan Plan of Care 1. Continue Rocephin wean soon but d/c doxycycline today (05/12) 2. continue acyclovir for now 3 supportive care 4.pulm and oncology/card following Follow up labs d/w family DANIEL FORD MD May 12, 2017 07:50
--- NOTE | 2017-05-12 08:31 | PDOC ---
GENERAL General: vss and afebrile. awake and alert and son in attendance. feeling better. mouth looks much better this am. chest with slightly decreased breath sounds and heart regular and abdomen benign. wbc increased to 3.5K and platelets increased to 41K this am. albumin very low at 1.8 with poor oral intake but ongoing TPN. continue supportive care with eye towards heart cath once stabilized. Problems: VITAL SIGNS Vital Signs: Vital Signs Date Time Temp Pulse Resp B/P (MAP) Pulse Ox O2 Delivery O2 Flow Rate FiO2 05/12/17 08:00 98.2 73 24 134/63 (86) 92 Room Air 98.2 05/12/17 07:00 2.0 I & O I & O Intake and Output 05/12/17 06:59 Intake Total 3229.59 ml Output Total 2765 ml Balance 464.59 ml Intake Oral 250 ml IV Total 2979.59 ml Output Urine Total 2535 ml Stool Total 200 ml Emesis 30 ml ALLERGIES Allergies: Allergies Coded Allergies Type Severity Reaction Last Updated Verified codeine Adverse Reaction Intermediate Patient states hallucinations 10/19/16 Yes MEDS Medications: Current Medications Medications (Trade) Dose Ordered Sig/Fannie Start Time Stop Time Status Last Admin Dose Admin Acyclovir (Zovirax) 400 mg [id number] 05/06/17 09:00 05/11/17 21:01 400 MG Albuterol Sulfate (Ventolin Neb Soln) 2.5 mg 1X ONCE 05/10/17 20:00 05/10/17 20:01 DC 05/10/17 19:54 2.5 MG Amiodarone HCl (Cordarone) 300 mg STK-MED ONCE 05/09/17 23:00 05/10/17 11:00 DC Amiodarone HCl 150 mg/Dextrose 103 ml @ 618 mls/hr 1X ONCE 05/09/17 14:00 05/09/17 14:09 DC 05/09/17 14:28 618 MLS/HR Amiodarone HCl 450 mg/Dextrose 259 ml @ 17.26 mls/ hr CONT PRN 05/10/17 04:00 05/11/17 05:43 17.26 MLS/HR Amiodarone HCl 900 mg/Dextrose 518 ml @ 0 mls/hr CONT PRN 05/10/17 03:45 UNV Atorvastatin Calcium (Lipitor) 40 mg DAILY 05/06/17 09:00 05/11/17 08:52 40 MG Atropine Sulfate 1 mg STK-MED ONCE 05/09/17 23:00 05/10/17 11:00 DC Calcium Gluconate (Calcium Gluconate) 1,000 mg 1X ONCE 05/09/17 14:00 05/09/17 14:01 DC 05/09/17 14:28 1,000 MG Ceftriaxone Sodium 1 gm/ Dextrose 50 ml @ 100 mls/hr Q24H 05/05/17 18:00 UNV Ceftriaxone Sodium (Rocephin) 1 gm Q24H 05/05/17 18:00 05/11/17 18:08 1 GM Diazepam (Valium) 5 mg TID 05/05/17 21:00 05/11/17 21:01 5 MG Dobutamine HCl/ Dextrose 250 ml @ 0 mls/hr CONT PRN 05/10/17 21:15 05/12/17 05:01 5.756 MLS/HR Doxycycline Hyclate (Vibra-Tab) 100 mg BID 05/06/17 14:00 05/12/17 07:50 DC 05/11/17 21:01 100 MG Epinephrine HCl (EPINEPHrine SYRINGE) 3 mg STK-MED ONCE 05/09/17 23:00 05/10/17 11:00 DC Furosemide (Lasix) 40 mg 1X ONCE 05/10/17 21:30 05/10/17 21:31 DC 05/10/17 21:22 40 MG Info 1 each PRN DAILY PRN 05/09/17 13:45 05/11/17 12:45 1 EACH Levothyroxine Sodium (Synthroid) 75 mcg DAILYAC 05/06/17 07:30 05/11/17 08:52 75 MCG Lidocaine HCl (Lidocaine HCl 2% Abboject) 100 mg STK-MED ONCE 05/09/17 23:00 05/10/17 11:00 DC Lidocaine HCl/ Dextrose 500 ml @ 0 mls/hr CONT PRN 05/10/17 04:00 05/12/17 05:40 15 MLS/HR Lidocaine/Sodium Bicarbonate (Buffered Lidocaine 1%) 3 ml 1X ONCE 05/10/17 13:45 05/10/17 13:57 DC 05/10/17 13:45 3 ML Magnesium Sulfate/ Dextrose (Magnesium Sulfate PREMIX 1GM) 2 gm STK-MED ONCE 05/09/17 23:00 05/10/17 11:00 DC Metoprolol Tartrate (Lopressor) 25 mg BID 05/05/17 21:00 05/11/17 08:52 25 MG Midazolam HCl (Versed) 2 mg PRN Q2HR PRN 05/10/17 02:30 Multi-Ingredient Mouthwash/Gargle (Magic Mouthwash) 10 ml PRN QID PRN 05/07/17 09:00 05/08/17 10:12 10 ML Nystatin 5 ml [id number] 05/07/17 13:00 05/11/17 18:08 5 ML Ondansetron HCl (Zofran Odt) 8 mg PRN Q12HRS PRN 05/05/17 18:30 05/11/17 11:52 8 MG Pantoprazole Sodium (Protonix) 40 mg DAILY 05/06/17 09:00 05/11/17 08:52 40 MG Potassium Chloride/Dextrose/ Sod Cl 1,000 ml @ 75 mls/hr [id number] 05/09/17 11:00 05/11/17 08:26 DC 05/10/17 17:58 75 MLS/HR Potassium Chloride/Sodium Chloride 1,000 ml @ 80 mls/hr [id number] 05/08/17 17:30 05/09/17 18:27 DC 05/09/17 05:49 80 MLS/HR Potassium Phosphate 13.6 mmol/Dextrose 104.5333 ml @ 52.267 m... ONCE ONCE 05/11/17 13:00 05/11/17 14:59 DC 05/11/17 13:24 52.267 MLS/HR Potassium Chloride (Klor-Con) 40 meq 1X ONCE 05/09/17 11:00 05/09/17 11:01 DC Procainamide HCl 500 mg/Dextrose 55 ml @ 110 mls/hr 1X ONCE 05/09/17 15:30 05/09/17 15:59 DC 05/09/17 15:49 110 MLS/HR Procainamide HCl 2000 mg/Dextrose 520 ml @ 0 mls/hr CONT PRN 05/09/17 15:45 UNV Sodium Acetate 120 meq/Potassium Chloride 70 meq/ Potassium Phosphate 25 mmol/ Magnesium Sulfate 22 meq/Calcium Gluconate 5 meq/ Multivitamins 10 ml/Chromium/ Copper/Manganese/ Seleni/Zn 1 ml/ Total Parenteral Nutrition/Amino Acids/Dextrose/ Fat Emulsion Intravenous 1,512 ml @ 63 mls/hr TPN CONT 05/11/17 22:00 05/12/17 21:59 05/11/17 21:56 63 MLS/HR Sodium Acetate 120 meq/Potassium Chloride 70 meq/ Potassium Phosphate 27.2 mmol/Magnesium Sulfate 22 meq/ Calcium Gluconate 5 meq/ Multivitamins 10 ml/Chromium/ Copper/Manganese/ Seleni/Zn 1 ml/ Total Parenteral Nutrition/Amino Acids/Dextrose/ Fat Emulsion Intravenous 1,512 ml @ 63 mls/hr TPN CONT 05/11/17 22:00 05/12/17 21:59 Cancel Sodium Acetate 90 meq/Potassium Chloride 70 meq/ Potassium Phosphate 20.4 mmol/Magnesium Sulfate 18 meq/ Calcium Gluconate 10 meq/ Multivitamins 10 ml/Chromium/ Copper/Manganese/ Seleni/Zn 1 ml/ Total Parenteral Nutrition/Amino Acids/Dextrose/ Fat Emulsion Intravenous 1,512 ml @ 63 mls/hr TPN CONT 05/10/17 22:00 05/11/17 21:59 DC 05/10/17 22:00 63 MLS/HR Sodium Bicarbonate 100 meq 1X ONCE 05/08/17 15:30 05/08/17 15:31 DC 05/08/17 16:52 100 MEQ Sodium Chloride 250 ml @ 250 mls/hr 1X ONCE 05/10/17 13:45 05/10/17 14:44 DC Sodium Chloride 90 meq/Potassium Acetate 70 meq/ Potassium Phosphate 18 mmol/ Magnesium Sulfate 12 meq/Calcium Gluconate 10 meq/ Multivitamins 10 ml/Chromium/ Copper/Manganese/ Seleni/Zn 1 ml/ Total Parenteral Nutrition/Amino Acids/Dextrose/ Fat Emulsion Intravenous 1,512 ml @ 63 mls/hr TPN CONT 05/09/17 22:00 05/10/17 21:59 DC 05/09/17 21:39 63 MLS/HR Sodium Chloride 90 meq/Potassium Chloride 50 meq/ Potassium Phosphate 13.6 mmol/Magnesium Sulfate 10 meq/ Calcium Gluconate 10 meq/ Multivitamins 10 ml/Chromium/ Copper/Manganese/ Seleni/Zn 1 ml/ Total Parenteral Nutrition/Amino Acids/Dextrose/ Fat Emulsion Intravenous 1,387.0013 ml @ 3.625 mls/hr TPN CONT 05/09/17 22:00 UNV Sodium Phosphate 20 mmol/Dextrose 256.6667 ml @ 64.167 m... 1X ONCE 05/09/17 17:45 05/09/17 21:44 DC 05/09/17 18:10 64.167 MLS/HR Sodium Phosphate 30 mmol/Dextrose 260 ml @ 65 mls/hr 1X ONCE 05/09/17 17:45 05/09/17 21:44 Cancel Tramadol HCl (Ultram) 50 mg PRN Q6HRS PRN 05/05/17 18:15 Vancomycin HCl 1 each 1X ONCE 05/07/17 19:00 05/07/17 19:01 Cancel Vancomycin HCl (Vanco Per Pharmacy) 1 each PRN DAILY PRN 05/05/17 18:00 05/06/17 13:10 DC 05/06/17 12:53 1 EACH Vancomycin HCl 1.75 gm/Dextrose 500 ml @ 250 mls/hr 1X ONCE 05/05/17 18:30 05/05/17 20:29 DC 05/05/17 19:21 250 MLS/HR Vancomycin HCl 1 gm/Dextrose 250 ml @ 250 mls/hr Q24H 05/06/17 19:30 05/06/17 19:30 DC Venlafaxine HCl (Effexor Xr) 75 mg DAILY 05/06/17 09:00 05/11/17 08:52 75 MG LAB Lab: Laboratory Tests Test 05/12/17 05:00 White Blood Count 3.5 x10^3/uL (4.0-11.0) Red Blood Count 2.52 x10^6/uL (3.50-5.40) Hemoglobin 8.6 g/dL (12.0-15.5) Hematocrit 25.2 % (36.0-47.0) Mean Corpuscular Volume 100 fL (79-100) Mean Corpuscular Hemoglobin 34 pg (25-35) Mean Corpuscular Hemoglobin Concent 34 g/dL (31-37) Red Cell Distribution Width 21.1 % (11.5-14.5) Platelet Count 41 x10^3/uL (140-400) Neutrophils (%) (Auto) 55 % (31-73) Lymphocytes (%) (Auto) 23 % (24-48) Monocytes (%) (Auto) 22 % (0-9) Eosinophils (%) (Auto) 0 % (0-3) Basophils (%) (Auto) 0 % (0-3) Neutrophils # (Auto) 1.9 x10^3uL (1.8-7.7) Lymphocytes # (Auto) 0.8 x10^3/uL (1.0-4.8) Monocytes # (Auto) 0.8 x10^3/uL (0.0-1.1) Eosinophils # (Auto) 0.0 x10^3/uL (0.0-0.7) Basophils # (Auto) 0.0 x10^3/uL (0.0-0.2) Sodium Level 134 mmol/L (136-145) Potassium Level 4.6 mmol/L (3.5-5.1) Chloride Level 101 mmol/L (98-107) Carbon Dioxide Level 26 mmol/L (21-32) Anion Gap 7 (6-14) Blood Urea Nitrogen 11 mg/dL (7-20) Creatinine 0.8 mg/dL (0.6-1.0) Estimated GFR (Cockcroft-Gault) 70.1 BUN/Creatinine Ratio 14 (6-20) Glucose Level 108 mg/dL (70-99) Calcium Level 7.4 mg/dL (8.5-10.1) Phosphorus Level 2.9 mg/dL (2.6-4.7) Magnesium Level 2.2 mg/dL (1.8-2.4) Total Bilirubin 0.4 mg/dL (0.2-1.0) Aspartate Amino Transf (AST/SGOT) 25 U/L (15-37) Alanine Aminotransferase (ALT/SGPT) 24 U/L (14-59) Alkaline Phosphatase 82 U/L (46-116) Total Protein 5.0 g/dL (6.4-8.2) Albumin 1.8 g/dL (3.4-5.0) Albumin/Globulin Ratio 0.6 (1.0-1.7) Nutrition Consultation Dietary Evaluation: Recommendations by RD: PPN/TPN Comments: REC TPN: 225 g dextrose, 60 g AA, 20 g lipid Can dc TPN once PO intake meeting > 75% est needs Expected Outcomes/Goals: TPN infusion initiated and meeting > 75% est needs within 24 - 48 hrs Malnutrition Findings: Food and Nutrition Intake (Mod: <75% est energy req 7days Weight Status: Overweight APPL,ZACK Coon MD May 12, 2017 08:31
[2017-05-12] MEDS: LEVOTHYROXINE 75 MCG TABLET PO SCH (08:37)
[2017-05-12] MEDS: AMIODARONE HCL 200 MG TABLET. PO SCH ×2 (08:37→21:41)
[2017-05-12] MEDS: NYSTATIN 100,000 UNITS/ML 5 ML ORAL.SUSP. SWSW SCH ×4 (08:37→21:41)
[2017-05-12] MEDS: ATORVASTATIN CALCIUM 40 MG TABLET. PO SCH (08:37)
[2017-05-12] MEDS: PANTOPRAZOLE 40 MG TABLET.DR. PO SCH (08:37)
[2017-05-12] MEDS: diazePAM 5 MG TABLET PO SCH ×3 (08:37→21:41)
[2017-05-12] MEDS: VENLAFAXINE XR 37.5 MG CAP.ER.24H. PO SCH (08:37)
[2017-05-12] MEDS: ACYCLOVIR 200 MG CAPSULE. PO SCH ×3 (08:37→21:41)
[2017-05-12] MEDS: METOPROLOL TART IMMED RELEASE 25 MG TABLET. PO SCH ×2 (08:38→21:00)
[2017-05-12] MEDS: FUROSEMIDE 40 MG/4 ML VIAL. IVP SCH (08:48)
--- NOTE | 2017-05-12 11:53 | PDOC ---
PULMONARY PROGRESS NOTES Subjective PT S/P CODE FOR V TACH, HAD SHOCKED MULTIPLE TIMES OFF BIPAP/ON LASIX/DOBUTAMINE Vitals Vital Signs Date Time Temp Pulse Resp B/P (MAP) Pulse Ox O2 Delivery O2 Flow Rate FiO2 05/12/17 10:00 59 21 104/63 (77) 91 Room Air 05/12/17 08:00 98.2 98.2 05/12/17 07:00 2.0 General: Alert, No acute distress Lungs: Other (crackles bases) Cardiovascular: S1, S2 Abdomen: Soft Neuro Exam: Alert Extremities: Other (1=EDEMA) Skin: Warm Labs Laboratory Tests Test 05/10/17 19:54 05/11/17 05:00 05/12/17 05:00 O2 Saturation 89 % (92-99) Arterial Blood pH 7.36 (7.35-7.45) Arterial Blood pCO2 at Patient Temp 27 mmHg (35-46) Arterial Blood pO2 at Patient Temp 61 mmHg (65-108) Arterial Blood HCO3 15 mmol/L (21-28) Arterial Blood Base Excess -9 mmol/L (-3-3) FiO2 44 White Blood Count 2.9 x10^3/uL (4.0-11.0) 3.5 x10^3/uL (4.0-11.0) Red Blood Count 2.76 x10^6/uL (3.50-5.40) 2.52 x10^6/uL (3.50-5.40) Hemoglobin 9.3 g/dL (12.0-15.5) 8.6 g/dL (12.0-15.5) Hematocrit 27.1 % (36.0-47.0) 25.2 % (36.0-47.0) Mean Corpuscular Volume 98 fL (79-100) 100 fL (79-100) Mean Corpuscular Hemoglobin 34 pg (25-35) 34 pg (25-35) Mean Corpuscular Hemoglobin Concent 34 g/dL (31-37) 34 g/dL (31-37) Red Cell Distribution Width 20.7 % (11.5-14.5) 21.1 % (11.5-14.5) Platelet Count 27 x10^3/uL (140-400) 41 x10^3/uL (140-400) Neutrophils (%) (Auto) 64 % (31-73) 55 % (31-73) Lymphocytes (%) (Auto) 17 % (24-48) 23 % (24-48) Monocytes (%) (Auto) 19 % (0-9) 22 % (0-9) Eosinophils (%) (Auto) 0 % (0-3) 0 % (0-3) Basophils (%) (Auto) 0 % (0-3) 0 % (0-3) Neutrophils # (Auto) 1.9 x10^3uL (1.8-7.7) 1.9 x10^3uL (1.8-7.7) Lymphocytes # (Auto) 0.5 x10^3/uL (1.0-4.8) 0.8 x10^3/uL (1.0-4.8) Monocytes # (Auto) 0.6 x10^3/uL (0.0-1.1) 0.8 x10^3/uL (0.0-1.1) Eosinophils # (Auto) 0.0 x10^3/uL (0.0-0.7) 0.0 x10^3/uL (0.0-0.7) Basophils # (Auto) 0.0 x10^3/uL (0.0-0.2) 0.0 x10^3/uL (0.0-0.2) Sodium Level 131 mmol/L (136-145) 134 mmol/L (136-145) Potassium Level 3.8 mmol/L (3.5-5.1) 4.6 mmol/L (3.5-5.1) Chloride Level 100 mmol/L (98-107) 101 mmol/L (98-107) Carbon Dioxide Level 22 mmol/L (21-32) 26 mmol/L (21-32) Anion Gap 9 (6-14) 7 (6-14) Blood Urea Nitrogen 9 mg/dL (7-20) 11 mg/dL (7-20) Creatinine 1.0 mg/dL (0.6-1.0) 0.8 mg/dL (0.6-1.0) Estimated GFR (Cockcroft-Gault) 54.2 70.1 BUN/Creatinine Ratio 9 (6-20) 14 (6-20) Glucose Level 177 mg/dL (70-99) 108 mg/dL (70-99) Calcium Level 7.3 mg/dL (8.5-10.1) 7.4 mg/dL (8.5-10.1) Phosphorus Level 2.2 mg/dL (2.6-4.7) 2.9 mg/dL (2.6-4.7) Magnesium Level 1.7 mg/dL (1.8-2.4) 2.2 mg/dL (1.8-2.4) Total Bilirubin 0.3 mg/dL (0.2-1.0) 0.4 mg/dL (0.2-1.0) Aspartate Amino Transf (AST/SGOT) 34 U/L (15-37) 25 U/L (15-37) Alanine Aminotransferase (ALT/SGPT) 34 U/L (14-59) 24 U/L (14-59) Alkaline Phosphatase 77 U/L (46-116) 82 U/L (46-116) Total Protein 5.7 g/dL (6.4-8.2) 5.0 g/dL (6.4-8.2) Albumin 2.2 g/dL (3.4-5.0) 1.8 g/dL (3.4-5.0) Albumin/Globulin Ratio 0.6 (1.0-1.7) 0.6 (1.0-1.7) Triglycerides Level 121 mg/dL (0-150) Laboratory Tests Test 05/12/17 05:00 White Blood Count 3.5 x10^3/uL (4.0-11.0) Red Blood Count 2.52 x10^6/uL (3.50-5.40) Hemoglobin 8.6 g/dL (12.0-15.5) Hematocrit 25.2 % (36.0-47.0) Mean Corpuscular Volume 100 fL (79-100) Mean Corpuscular Hemoglobin 34 pg (25-35) Mean Corpuscular Hemoglobin Concent 34 g/dL (31-37) Red Cell Distribution Width 21.1 % (11.5-14.5) Platelet Count 41 x10^3/uL (140-400) Neutrophils (%) (Auto) 55 % (31-73) Lymphocytes (%) (Auto) 23 % (24-48) Monocytes (%) (Auto) 22 % (0-9) Eosinophils (%) (Auto) 0 % (0-3) Basophils (%) (Auto) 0 % (0-3) Neutrophils # (Auto) 1.9 x10^3uL (1.8-7.7) Lymphocytes # (Auto) 0.8 x10^3/uL (1.0-4.8) Monocytes # (Auto) 0.8 x10^3/uL (0.0-1.1) Eosinophils # (Auto) 0.0 x10^3/uL (0.0-0.7) Basophils # (Auto) 0.0 x10^3/uL (0.0-0.2) Sodium Level 134 mmol/L (136-145) Potassium Level 4.6 mmol/L (3.5-5.1) Chloride Level 101 mmol/L (98-107) Carbon Dioxide Level 26 mmol/L (21-32) Anion Gap 7 (6-14) Blood Urea Nitrogen 11 mg/dL (7-20) Creatinine 0.8 mg/dL (0.6-1.0) Estimated GFR (Cockcroft-Gault) 70.1 BUN/Creatinine Ratio 14 (6-20) Glucose Level 108 mg/dL (70-99) Calcium Level 7.4 mg/dL (8.5-10.1) Phosphorus Level 2.9 mg/dL (2.6-4.7) Magnesium Level 2.2 mg/dL (1.8-2.4) Total Bilirubin 0.4 mg/dL (0.2-1.0) Aspartate Amino Transf (AST/SGOT) 25 U/L (15-37) Alanine Aminotransferase (ALT/SGPT) 24 U/L (14-59) Alkaline Phosphatase 82 U/L (46-116) Total Protein 5.0 g/dL (6.4-8.2) Albumin 1.8 g/dL (3.4-5.0) Albumin/Globulin Ratio 0.6 (1.0-1.7) Medications Active Scripts Medications Dose Route/Sig Max Daily Dose Days Date Category Levofloxacin 500 Mg Tablet 500 Mg PO DAILY 05/05/17 Reported Tramadol Hcl 50 Mg Tablet 50 Mg PO Q6H PRN 05/05/17 Reported Ondansetron Hcl 4 Mg Tablet 8 Mg PO BID PRN 05/05/17 Reported [place] 5-325 Tablet (Acetaminophen/Hydrocodone Bitart) 1 Each Tablet 1-2 Tab PO Q4HRS PRN 10/19/16 Reported Atorvastatin Calcium 40 Mg Tablet 1 Tab PO DAILY 10/18/15 Reported Metoprolol Tartrate 25 Mg Tablet 1 Tab PO BID 10/18/15 Reported Pantoprazole Sodium 40 Mg Tablet.dr 1 Tab PO DAILY 04/26/15 Reported Diazepam 5 Mg Tablet 5 Mg PO TID 03/07/15 Reported Venlafaxine Hcl Er (Venlafaxine Hcl) 75 Mg Cap.er.24h 75 Mg PO DAILY 03/07/15 Reported Synthroid (Levothyroxine Sodium) 75 Mcg Tablet 75 Mcg PO DAILYAC 03/07/15 Reported Impression . 1. Progressive dyspnea, multifactorial secondary to CHF, weakness from her recent chemotherapy and toxicities/ NEW CM EF 25 % 2. Stage 4 Colon cancer. 3. Leukopenia/ thrombocytopenia secondary to chemotherapy. 4. Thrombocytopenia. 5. Acute renal failure, 6. Urinary tract infection. 7. Protein malnutrition present upon admission. 8. CODE BLUE ,V- TACH PER DR ASHRAF 9. Mild interstitial edema Plan . PT NOT TO BE INTUBATED, ONLY CHEMICAL CODE SPOKE WITH DR MIRZA AND FAMILY ON DOBUTAMINE/ LASIX F/U CXR NEEDED NOT A BEST CANDIDATE FOR CATH AT PRESENT / PLT STILL LOW PROGNOSIS IS POOR FOLLOW [facility] INPUT SUPPORTIVE CARE MG MCKENNA MD May 12, 2017 11:53
[2017-05-12] MEDS: TPN PER PHARMACY MC PRN (13:06)
--- NOTE | 2017-05-12 14:09 | PDOC ---
PROGRESS NOTES Subjective Subjective Patient stable today with family around bedside. Remains fatigued. She continues to have N/V, likely due to medication side effects. Discussed the options of conservative medical management vs. a more invasive management with cardiac catheterization with patient and family. Patients platelets continue to rise, however she is still very fragile. Patient and family stated their understanding and agreed to discuss the matter over the next several days before reaching a decision. No additional concerns at this time. Objective Objective Vital Signs Date Time Temp Pulse Resp B/P (MAP) Pulse Ox O2 Delivery O2 Flow Rate FiO2 05/12/17 13:00 63 21 106/59 (75) 93 Room Air 05/12/17 12:00 98.5 98.5 05/12/17 07:00 2.0 Intake and Output 05/12/17 07:00 Intake Total 3229.59 ml Output Total 2735 ml Balance 494.59 ml Intake Oral 250 ml IV Total 2979.59 ml Output Urine Total 2505 ml Stool Total 200 ml Emesis 30 ml Physical Exam COMMENT Alert & Oriented No Acute Distress No changes in cardiac exam Normal Air Movement Assessment Assessment Patient continues to slowly improve. In process of deciding on medical cardiac management vs. cardiac catheterization. Plan Plan of Care Plan: -Will d/c Lidocaine, likely contributing to patients continued N/V -Will d/c procainamide -Continue Lasix, Dobutamine, Amniodarone, Atorvostatin, and Metoprolol -Due to lack of cardiac hx, unclear if low EF (27%) is due to silent MIs/CAD or if the cardiac muscle is temporarily stunned from chemotherapy. Will continue to monitor patients progress -Discussed medical management vs. cardiac cath. Will continue this discussion with patient and family until decision reached. Patient remains fragile and is not the best candidate for surgical management at this time. With that said, the patients' platelets continue to rise. If plts >50,000 and patient desires, will proceed with cardiac cath this Wednesday Comment Review of Relevant I have reviewed the following items armida (where applicable) has been applied. Labs Laboratory Tests Test 05/10/17 19:54 05/11/17 05:00 05/12/17 05:00 O2 Saturation 89 % (92-99) Arterial Blood pH 7.36 (7.35-7.45) Arterial Blood pCO2 at Patient Temp 27 mmHg (35-46) Arterial Blood pO2 at Patient Temp 61 mmHg (65-108) Arterial Blood HCO3 15 mmol/L (21-28) Arterial Blood Base Excess -9 mmol/L (-3-3) FiO2 44 White Blood Count 2.9 x10^3/uL (4.0-11.0) 3.5 x10^3/uL (4.0-11.0) Red Blood Count 2.76 x10^6/uL (3.50-5.40) 2.52 x10^6/uL (3.50-5.40) Hemoglobin 9.3 g/dL (12.0-15.5) 8.6 g/dL (12.0-15.5) Hematocrit 27.1 % (36.0-47.0) 25.2 % (36.0-47.0) Mean Corpuscular Volume 98 fL (79-100) 100 fL (79-100) Mean Corpuscular Hemoglobin 34 pg (25-35) 34 pg (25-35) Mean Corpuscular Hemoglobin Concent 34 g/dL (31-37) 34 g/dL (31-37) Red Cell Distribution Width 20.7 % (11.5-14.5) 21.1 % (11.5-14.5) Platelet Count 27 x10^3/uL (140-400) 41 x10^3/uL (140-400) Neutrophils (%) (Auto) 64 % (31-73) 55 % (31-73) Lymphocytes (%) (Auto) 17 % (24-48) 23 % (24-48) Monocytes (%) (Auto) 19 % (0-9) 22 % (0-9) Eosinophils (%) (Auto) 0 % (0-3) 0 % (0-3) Basophils (%) (Auto) 0 % (0-3) 0 % (0-3) Neutrophils # (Auto) 1.9 x10^3uL (1.8-7.7) 1.9 x10^3uL (1.8-7.7) Lymphocytes # (Auto) 0.5 x10^3/uL (1.0-4.8) 0.8 x10^3/uL (1.0-4.8) Monocytes # (Auto) 0.6 x10^3/uL (0.0-1.1) 0.8 x10^3/uL (0.0-1.1) Eosinophils # (Auto) 0.0 x10^3/uL (0.0-0.7) 0.0 x10^3/uL (0.0-0.7) Basophils # (Auto) 0.0 x10^3/uL (0.0-0.2) 0.0 x10^3/uL (0.0-0.2) Sodium Level 131 mmol/L (136-145) 134 mmol/L (136-145) Potassium Level 3.8 mmol/L (3.5-5.1) 4.6 mmol/L (3.5-5.1) Chloride Level 100 mmol/L (98-107) 101 mmol/L (98-107) Carbon Dioxide Level 22 mmol/L (21-32) 26 mmol/L (21-32) Anion Gap 9 (6-14) 7 (6-14) Blood Urea Nitrogen 9 mg/dL (7-20) 11 mg/dL (7-20) Creatinine 1.0 mg/dL (0.6-1.0) 0.8 mg/dL (0.6-1.0) Estimated GFR (Cockcroft-Gault) 54.2 70.1 BUN/Creatinine Ratio 9 (6-20) 14 (6-20) Glucose Level 177 mg/dL (70-99) 108 mg/dL (70-99) Calcium Level 7.3 mg/dL (8.5-10.1) 7.4 mg/dL (8.5-10.1) Phosphorus Level 2.2 mg/dL (2.6-4.7) 2.9 mg/dL (2.6-4.7) Magnesium Level 1.7 mg/dL (1.8-2.4) 2.2 mg/dL (1.8-2.4) Total Bilirubin 0.3 mg/dL (0.2-1.0) 0.4 mg/dL (0.2-1.0) Aspartate Amino Transf (AST/SGOT) 34 U/L (15-37) 25 U/L (15-37) Alanine Aminotransferase (ALT/SGPT) 34 U/L (14-59) 24 U/L (14-59) Alkaline Phosphatase 77 U/L (46-116) 82 U/L (46-116) Total Protein 5.7 g/dL (6.4-8.2) 5.0 g/dL (6.4-8.2) Albumin 2.2 g/dL (3.4-5.0) 1.8 g/dL (3.4-5.0) Albumin/Globulin Ratio 0.6 (1.0-1.7) 0.6 (1.0-1.7) Triglycerides Level 121 mg/dL (0-150) Laboratory Tests Test 05/12/17 05:00 White Blood Count 3.5 x10^3/uL (4.0-11.0) Red Blood Count 2.52 x10^6/uL (3.50-5.40) Hemoglobin 8.6 g/dL (12.0-15.5) Hematocrit 25.2 % (36.0-47.0) Mean Corpuscular Volume 100 fL (79-100) Mean Corpuscular Hemoglobin 34 pg (25-35) Mean Corpuscular Hemoglobin Concent 34 g/dL (31-37) Red Cell Distribution Width 21.1 % (11.5-14.5) Platelet Count 41 x10^3/uL (140-400) Neutrophils (%) (Auto) 55 % (31-73) Lymphocytes (%) (Auto) 23 % (24-48) Monocytes (%) (Auto) 22 % (0-9) Eosinophils (%) (Auto) 0 % (0-3) Basophils (%) (Auto) 0 % (0-3) Neutrophils # (Auto) 1.9 x10^3uL (1.8-7.7) Lymphocytes # (Auto) 0.8 x10^3/uL (1.0-4.8) Monocytes # (Auto) 0.8 x10^3/uL (0.0-1.1) Eosinophils # (Auto) 0.0 x10^3/uL (0.0-0.7) Basophils # (Auto) 0.0 x10^3/uL (0.0-0.2) Sodium Level 134 mmol/L (136-145) Potassium Level 4.6 mmol/L (3.5-5.1) Chloride Level 101 mmol/L (98-107) Carbon Dioxide Level 26 mmol/L (21-32) Anion Gap 7 (6-14) Blood Urea Nitrogen 11 mg/dL (7-20) Creatinine 0.8 mg/dL (0.6-1.0) Estimated GFR (Cockcroft-Gault) 70.1 BUN/Creatinine Ratio 14 (6-20) Glucose Level 108 mg/dL (70-99) Calcium Level 7.4 mg/dL (8.5-10.1) Phosphorus Level 2.9 mg/dL (2.6-4.7) Magnesium Level 2.2 mg/dL (1.8-2.4) Total Bilirubin 0.4 mg/dL (0.2-1.0) Aspartate Amino Transf (AST/SGOT) 25 U/L (15-37) Alanine Aminotransferase (ALT/SGPT) 24 U/L (14-59) Alkaline Phosphatase 82 U/L (46-116) Total Protein 5.0 g/dL (6.4-8.2) Albumin 1.8 g/dL (3.4-5.0) Albumin/Globulin Ratio 0.6 (1.0-1.7) Microbiology 05/06/17 Urine Culture - Final, Complete 05/06/17 Urine Culture Result 1 (MARINE) - Final, Complete Medications Current Medications Ceftriaxone Sodium 1 gm/ Dextrose 50 ml @ 100 mls/hr Q24H IV ; Start 05/05/17 at 18:00; Status UNV Vancomycin HCl (Vanco Per Pharmacy) 1 each PRN DAILY PRN MC SEE COMMENTS Last administered on 05/06/17 12:53; Start 05/05/17 at 18:00; Stop 05/06/17 at 13:10 ; Status DC Ceftriaxone Sodium (Rocephin) 1 gm Q24H IVP Last administered on 05/11/17 18: 08; Start 05/05/17 at 18:00 Sodium Chloride 1,000 ml @ 75 mls/hr [id number] IV Last administered on 04:20; Start 05/05/17 at 18:15; Stop 05/08/17 at 13:44; Status DC Atorvastatin Calcium (Lipitor) 40 mg DAILY PO Last administered on 05/12/17 08:37; Start 05/06/17 at 09:00 Diazepam (Valium) 5 mg TID PO Last administered on 05/12/17 08:37; Start 05/05/17 at 21:00 Levothyroxine Sodium (Synthroid) 75 mcg DAILYAC PO Last administered on 08:37; Start 05/06/17 at 07:30 Metoprolol Tartrate (Lopressor) 25 mg BID PO Last administered on 05/12/17 08 :38; Start 05/05/17 at 21:00 Pantoprazole Sodium (Protonix) 40 mg DAILY PO Last administered on 05/12/17 08:37; Start 05/06/17 at 09:00 Tramadol HCl (Ultram) 50 mg PRN Q6HRS PRN PO PAIN; Start 05/05/17 at 18:15 Ondansetron HCl (Zofran Odt) 8 mg PRN Q12HRS PRN PO NAUSEA/VOMITING Last administered on 05/11/17 11:52; Start 05/05/17 at 18:30 Venlafaxine HCl (Effexor Xr) 75 mg DAILY PO Last administered on 05/12/17 08: 37; Start 05/06/17 at 09:00 Vancomycin HCl 1.75 gm/Dextrose 500 ml @ 250 mls/hr 1X ONCE IV Last administered on 05/05/17 19:21; Start 05/05/17 at 18:30; Stop 05/05/17 at 20:29 ; Status DC Vancomycin HCl 1 gm/Dextrose 250 ml @ 250 mls/hr Q24H IV ; Start 05/06/17 at 19 :30; Stop 05/06/17 at 19:30; Status DC Vancomycin HCl 1 each 1X ONCE MC ; Start 05/07/17 at 19:00; Stop 05/07/17 at 19:01; Status Cancel Acyclovir (Zovirax) 400 mg [id number] PO Last administered on 05/12/17 08:37; Start 05/06/17 at 09:00 Doxycycline Hyclate (Vibra-Tab) 100 mg BID PO Last administered on 05/11/17 21:01; Start 05/06/17 at 14:00; Stop 05/12/17 at 07:50; Status DC Multi-Ingredient Mouthwash/Gargle (Magic Mouthwash) 10 ml PRN QID PRN PO MOUTH PAIN Last administered on 05/08/17 10:12; Start 05/07/17 at 09:00 Nystatin 5 ml [id number] Last administered on 05/12/17 08:37; Start at 13:00 Potassium Chloride/Dextrose/ Sod Cl 1,000 ml @ 75 mls/hr [id number] IV ; Start at 14:00; Stop 05/08/17 at 16:37; Status DC Potassium Chloride (Klor-Con) 40 meq 1X ONCE PO Last administered on 14:12; Start 05/08/17 at 14:00; Stop 05/08/17 at 14:01; Status DC Amiodarone HCl 900 mg/Dextrose 518 ml @ 34.53 mls/ hr CONT PRN IV SEE I/O RECORD Last administered on 05/09/17 14:28; Start 05/08/17 at 14:45; Stop at 14:29; Status DC Amiodarone HCl 900 mg/Dextrose 518 ml @ 0 mls/hr CONT PRN IV SEE I/O RECORD; Start 05/08/17 at 14:45; Status UNV Sodium Chloride 500 ml @ 500 mls/hr 1X ONCE IV Last administered on 15:30; Start 05/08/17 at 15:30; Stop 05/08/17 at 16:29; Status DC Sodium Bicarbonate 100 meq 1X ONCE IV Last administered on 05/08/17 16:52; Start 05/08/17 at 15:30; Stop 05/08/17 at 15:31; Status DC Magnesium Sulfate/ Dextrose 100 ml @ 100 mls/hr 1X ONCE IV Last administered on 05/08/17 16:00; Start 05/08/17 at 16:00; Stop 05/08/17 at 16:59; Status DC Magnesium Sulfate/ Dextrose 100 ml @ 100 mls/hr 1X ONCE IV Last administered on 05/08/17 16:00; Start 05/08/17 at 16:00; Stop 05/08/17 at 16:59; Status DC Potassium Chloride (Klor-Con) 40 meq [id number] PO ; Start 05/09/17 at 08:00; Stop 05/09/17 at 08:17; Status DC Potassium Chloride (Klor-Con) 40 meq 1X ONCE PO Last administered on 16:53; Start 05/08/17 at 17:00; Stop 05/08/17 at 17:01; Status DC Potassium Chloride/Sodium Chloride 1,000 ml @ 80 mls/hr [id number] IV Last administered on 05/09/17 05:49; Start 05/08/17 at 17:30; Stop 05/09/17 at 18 :27; Status DC Amiodarone HCl 150 mg/Dextrose 103 ml @ 618 mls/hr 1X ONCE IV Last administered on 05/09/17 07:22; Start 05/09/17 at 07:00; Stop 05/09/17 at 07 :09; Status DC Magnesium Sulfate/ Dextrose 50 ml @ 25 mls/hr 1X ONCE IV Last administered on 05/09/17 07:11; Start 05/09/17 at 07:00; Stop 05/09/17 at 08:59; Status DC Potassium Chloride 50 ml @ 25 mls/hr PRN Q2HRS PRN IV K-3.1 TO 3.5 Last administered on 05/09/17 11:44; Start 05/09/17 at 06:45; Stop 05/09/17 at 11 :44; Status DC Potassium Chloride 50 ml @ 25 mls/hr PRN Q2HRS PRN IV K 2.6 TO 3; Start at 06:45 Potassium Chloride 50 ml @ 25 mls/hr PRN Q2HRS PRN IV FOR K<2.6; Start at 08:00 Magnesium Sulfate/ Dextrose 100 ml @ 50 mls/hr PRN DAILY PRN IV MAG<1.8 Last administered on 05/11/17 09:59; Start 05/09/17 at 09:00 Potassium Chloride 50 ml @ 50 mls/hr Q1H IV ; Start 05/09/17 at 08:15; Stop at 10:14; Status Cancel Potassium Chloride 50 ml @ 50 mls/hr DAILY IV Last administered on 05/11/17 08:51; Start 05/10/17 at 09:00; Stop 05/11/17 at 09:59; Status DC Potassium Chloride 50 ml @ 50 mls/hr Q1H IV Last administered on 05/09/17 10: 00; Start 05/09/17 at 09:00; Stop 05/09/17 at 10:59; Status DC Potassium Chloride (Klor-Con) 40 meq 1X ONCE PO ; Start 05/09/17 at 11:00; Stop 05/09/17 at 11:01; Status DC Potassium Chloride/Dextrose/ Sod Cl 1,000 ml @ 75 mls/hr [id number] IV Last administered on 05/10/17 17:58; Start 05/09/17 at 11:00; Stop 05/11/17 at 08 :26; Status DC Calcium Gluconate (Calcium Gluconate) 1,000 mg 1X ONCE IVP Last administered on 05/09/17 14:28; Start 05/09/17 at 14:00; Stop 05/09/17 at 14:01; Status DC Info 1 each PRN DAILY PRN MC SEE COMMENTS Last administered on 05/12/17 13:06 ; Start 05/09/17 at 13:45 Amiodarone HCl 150 mg/Dextrose 103 ml @ 618 mls/hr 1X ONCE IV Last administered on 05/09/17 14:28; Start 05/09/17 at 14:00; Stop 05/09/17 at 14 :09; Status DC Amiodarone HCl (Cordarone) 400 mg BID PO Last administered on 05/12/17 08:37 ; Start 05/09/17 at 21:00 Sodium Chloride 90 meq/Potassium Chloride 50 meq/ Potassium Phosphate 13.6 mmol/ Magnesium Sulfate 10 meq/ Calcium Gluconate 10 meq/ Multivitamins 10 ml/Chromium / Copper/Manganese/ Seleni/Zn 1 ml/ Total Parenteral Nutrition/Amino Acids/ Dextrose/ Fat Emulsion Intravenous 1,387.0013 ml @ 3.625 mls/hr TPN CONT IV ; Start 05/09/17 at 22:00; Status UNV Sodium Chloride 90 meq/Potassium Acetate 70 meq/ Potassium Phosphate 18 mmol/ Magnesium Sulfate 12 meq/Calcium Gluconate 10 meq/ Multivitamins 10 ml/Chromium / Copper/Manganese/ Seleni/Zn 1 ml/ Total Parenteral Nutrition/Amino Acids/ Dextrose/ Fat Emulsion Intravenous 1,512 ml @ 63 mls/hr TPN CONT IV Last administered on 05/09/17 21:39; Start 05/09/17 at 22:00; Stop 05/10/17 at 21 :59; Status DC Magnesium Sulfate/ Dextrose 50 ml @ 25 mls/hr 1X ONCE IV ; Start 05/09/17 at 15:15; Stop 05/09/17 at 17:14; Status DC Procainamide HCl 2000 mg/Dextrose 520 ml @ 31.2 mls/hr CONT PRN IV SEE I/O RECORD Last administered on 05/11/17 21:55; Start 05/09/17 at 16:00; Stop at 11:28; Status DC Procainamide HCl 500 mg/Dextrose 55 ml @ 110 mls/hr 1X ONCE IV Last administered on 05/09/17 15:49; Start 05/09/17 at 15:30; Stop 05/09/17 at 15 :59; Status DC Procainamide HCl 2000 mg/Dextrose 520 ml @ 0 mls/hr CONT PRN IV SEE I/O RECORD ; Start 05/09/17 at 15:45; Status UNV Sodium Phosphate 30 mmol/Dextrose 260 ml @ 65 mls/hr 1X ONCE IV ; Start 05/09 at 17:45; Stop 05/09/17 at 21:44; Status Cancel Sodium Phosphate 20 mmol/Dextrose 256.6667 ml @ 64.167 m... 1X ONCE IV Last administered on 05/09/17 18:10; Start 05/09/17 at 17:45; Stop 05/09/17 at 21 :44; Status DC Magnesium Sulfate/ Dextrose 100 ml @ 100 mls/hr 1X ONCE IV Last administered on 05/10/17 01:48; Start 05/10/17 at 02:00; Stop 05/10/17 at 02:59; Status DC Midazolam HCl (Versed) 1 mg PRN Q2HR PRN IV SEDATION; Start 05/10/17 at 02:30 Midazolam HCl (Versed) 2 mg PRN Q2HR PRN IV SEDATION; Start 05/10/17 at 02:30 Amiodarone HCl 900 mg/Dextrose 518 ml @ 0 mls/hr CONT PRN IV SEE I/O RECORD; Start 05/10/17 at 03:45; Status UNV Amiodarone HCl 450 mg/Dextrose 259 ml @ 17.26 mls/ hr CONT PRN IV SEE I/O RECORD Last administered on 05/11/17 05:43; Start 05/10/17 at 04:00 Lidocaine HCl/ Dextrose 500 ml @ 0 mls/hr CONT PRN IV SEE I/O RECORD Last administered on 05/12/17 05:40; Start 05/10/17 at 04:00; Stop 05/12/17 at 17 :20 Lidocaine HCl (Lidocaine HCl 2% Abboject) 100 mg 1X ONCE IV Last administered on 05/10/17 04:13; Start 05/10/17 at 04:30; Stop 05/10/17 at 04:31; Status DC Amiodarone HCl (Cordarone) 300 mg STK-MED ONCE .ROUTE ; Start 05/09/17 at 23:00 ; Stop 05/10/17 at 11:00; Status DC Atropine Sulfate 1 mg STK-MED ONCE .ROUTE ; Start 05/09/17 at 23:00; Stop at 11:00; Status DC Epinephrine HCl (EPINEPHrine SYRINGE) 3 mg STK-MED ONCE .ROUTE ; Start at 23:00; Stop 05/10/17 at 11:00; Status DC Lidocaine HCl (Lidocaine HCl 2% Abboject) 100 mg STK-MED ONCE .ROUTE ; Start at 23:00; Stop 05/10/17 at 11:00; Status DC Magnesium Sulfate/ Dextrose (Magnesium Sulfate PREMIX 1GM) 2 gm STK-MED ONCE IV ; Start 05/09/17 at 23:00; Stop 05/10/17 at 11:00; Status DC Potassium Phosphate 13.6 mmol/Dextrose 104.5333 ml @ 52.267 m... ONCE ONCE IV Last administered on 05/10/17 15:54; Start 05/10/17 at 14:00; Stop at 15:59; Status DC Sodium Acetate 90 meq/Potassium Chloride 70 meq/ Potassium Phosphate 20.4 mmol/ Magnesium Sulfate 18 meq/ Calcium Gluconate 10 meq/ Multivitamins 10 ml/Chromium / Copper/Manganese/ Seleni/Zn 1 ml/ Total Parenteral Nutrition/Amino Acids/ Dextrose/ Fat Emulsion Intravenous 1,512 ml @ 63 mls/hr TPN CONT IV Last administered on 05/10/17 22:00; Start 05/10/17 at 22:00; Stop 05/11/17 at 21 :59; Status DC Lidocaine/Sodium Bicarbonate (Buffered Lidocaine 1%) 20 ml STK-MED ONCE IJ ; Start 05/10/17 at 13:45; Stop 05/10/17 at 13:46; Status DC Lidocaine/Sodium Bicarbonate (Buffered Lidocaine 1%) 3 ml 1X ONCE IJ Last administered on 05/10/17 13:45; Start 05/10/17 at 13:45; Stop 05/10/17 at 13 :57; Status DC Sodium Chloride 250 ml @ 250 mls/hr 1X ONCE IV ; Start 05/10/17 at 13:45; Stop 05/10/17 at 14:44; Status DC Albuterol Sulfate (Ventolin Neb Soln) 2.5 mg 1X ONCE NEB Last administered on 05/10/17 19:54; Start 05/10/17 at 20:00; Stop 05/10/17 at 20:01; Status DC Furosemide (Lasix) 40 mg 1X ONCE IVP Last administered on 05/10/17 21:22; Start 05/10/17 at 21:30; Stop 05/10/17 at 21:31; Status DC Dobutamine HCl/ Dextrose 250 ml @ 0 mls/hr CONT PRN IV SEE I/O RECORD Last administered on 05/12/17 05:01; Start 05/10/17 at 21:15 Sodium Acetate 120 meq/Potassium Chloride 70 meq/ Potassium Phosphate 27.2 mmol/ Magnesium Sulfate 22 meq/ Calcium Gluconate 5 meq/ Multivitamins 10 ml/Chromium / Copper/Manganese/ Seleni/Zn 1 ml/ Total Parenteral Nutrition/Amino Acids/ Dextrose/ Fat Emulsion Intravenous 1,512 ml @ 63 mls/hr TPN CONT IV ; Start 05/11/17 at 22:00; Stop 05/12/17 at 21:59; Status Cancel Potassium Phosphate 13.6 mmol/Dextrose 104.5333 ml @ 52.267 m... ONCE ONCE IV Last administered on 05/11/17 13:24; Start 05/11/17 at 13:00; Stop at 14:59; Status DC Sodium Acetate 120 meq/Potassium Chloride 70 meq/ Potassium Phosphate 25 mmol/ Magnesium Sulfate 22 meq/Calcium Gluconate 5 meq/ Multivitamins 10 ml/Chromium/ Copper/Manganese/ Seleni/Zn 1 ml/ Total Parenteral Nutrition/Amino Acids/ Dextrose/ Fat Emulsion Intravenous 1,512 ml @ 63 mls/hr TPN CONT IV Last administered on 05/11/17 21:56; Start 05/11/17 at 22:00; Stop 05/12/17 at 21 :59 Furosemide (Lasix) 40 mg DAILY IVP Last administered on 05/12/17 08:48; Start 05/12/17 at 09:00 Sodium Acetate 120 meq/Potassium Chloride 70 meq/ Potassium Phosphate 25 mmol/ Magnesium Sulfate 22 meq/Calcium Gluconate 5 meq/ Multivitamins 10 ml/Chromium/ Copper/Manganese/ Seleni/Zn 1 ml/ Total Parenteral Nutrition/Amino Acids/ Dextrose/ Fat Emulsion Intravenous 1,512 ml @ 63 mls/hr TPN CONT IV ; Start 05/12/17 at 22:00; Stop 05/13/17 at 21:59 Active Scripts Active Reported Levofloxacin 500 Mg Tablet 500 Mg PO DAILY Tramadol Hcl 50 Mg Tablet 50 Mg PO Q6H PRN Ondansetron Hcl 4 Mg Tablet 8 Mg PO BID PRN Burney 5-325 Tablet (Acetaminophen/Hydrocodone Bitart) 1 Each Tablet 1-2 Tab PO Q4HRS PRN Atorvastatin Calcium 40 Mg Tablet 1 Tab PO DAILY Metoprolol Tartrate 25 Mg Tablet 1 Tab PO BID Pantoprazole Sodium 40 Mg Tablet.dr 1 Tab PO DAILY Diazepam 5 Mg Tablet 5 Mg PO TID Venlafaxine Hcl Er (Venlafaxine Hcl) 75 Mg Cap.er.24h 75 Mg PO DAILY Synthroid (Levothyroxine Sodium) 75 Mcg Tablet 75 Mcg PO DAILYAC Vitals/I & O Vital Sign - Last 24 Hours 05/11/17 05/11/17 05/11/17 05/11/17 15:00 16:00 16:00 17:00 Temp 98.0 98.0 Pulse 56 59 59 Resp 19 23 24 B/P (MAP) 105/56 (72) 104/52 (69) 111/57 (75) Pulse Ox 91 93 92 O2 Delivery Nasal Cannula Nasal Cannula Nasal Cannula Nasal Cannula O2 Flow Rate 2.0 2.0 2.0 2.0 05/11/17 05/11/17 05/11/17 05/11/17 18:00 19:00 20:00 20:00 Temp 97.6 97.6 Pulse 62 62 64 Resp 22 20 23 B/P (MAP) 122/68 (86) 97/60 (72) 116/54 (74) Pulse Ox 93 96 96 O2 Delivery Nasal Cannula Nasal Cannula Nasal Cannula Nasal Cannula O2 Flow Rate 2.0 2.0 2.0 2.0 05/11/17 05/11/17 05/11/17 05/11/17 21:00 21:00 21:02 22:00 Pulse 66 65 66 67 Resp 10 22 B/P (MAP) 113/66 113/66 (82) 113/66 108/67 (81) Pulse Ox 95 95 O2 Delivery Nasal Cannula Nasal Cannula O2 Flow Rate 2.0 2.0 05/11/17 05/12/17 05/12/17 05/12/17 23:00 00:00 00:01 01:00 Temp 97.6 97.6 Pulse 68 66 67 Resp 20 21 20 B/P (MAP) 112/66 (81) 122/69 (86) 105/61 (76) Pulse Ox 96 96 95 O2 Delivery Nasal Cannula Nasal Cannula Nasal Cannula Nasal Cannula O2 Flow Rate 2.0 2.0 2.0 2.0 05/12/17 05/12/17 05/12/17 05/12/17 02:01 03:00 04:00 04:12 Temp 97.9 97.9 Pulse 67 67 67 Resp 16 16 19 B/P (MAP) 113/64 (80) 116/63 (80) 120/63 (82) Pulse Ox 96 96 95 O2 Delivery Nasal Cannula Nasal Cannula Nasal Cannula Nasal Cannula O2 Flow Rate 2.0 2.0 2.0 2.0 05/12/17 05/12/17 05/12/17 05/12/17 05:11 06:00 07:00 08:00 Temp 98.2 98.2 Pulse 69 71 73 73 Resp 19 17 21 24 B/P (MAP) 96/54 (68) 109/63 (78) 113/66 (82) 134/63 (86) Pulse Ox 93 94 94 92 O2 Delivery Nasal Cannula Nasal Cannula Nasal Cannula Room Air O2 Flow Rate 2.0 2.0 2.0 05/12/17 05/12/17 05/12/17 05/12/17 08:00 08:37 08:38 09:00 Pulse 73 73 71 Resp 21 B/P (MAP) 134/63 134/63 116/65 (82) Pulse Ox 91 O2 Delivery Room Air Room Air 05/12/17 05/12/17 05/12/17 05/12/17 10:00 11:00 12:00 12:00 Temp 98.5 98.5 Pulse 59 58 62 Resp 21 21 26 B/P (MAP) 104/63 (77) 97/55 (69) 98/55 (69) Pulse Ox 91 93 93 O2 Delivery Room Air Room Air Room Air Room Air 05/12/17 13:00 Pulse 63 Resp 21 B/P (MAP) 106/59 (75) Pulse Ox 93 O2 Delivery Room Air Intake and Output 05/11/17 05/11/17 05/12/17 15:00 23:00 07:00 Intake Total 350 ml 1682.59 ml 1197 ml Output Total 1410 ml 945 ml 380 ml Balance -1060 ml 737.59 ml 817 ml Nutrition Consultation Dietary Evaluation: Recommendations by RD: PPN/TPN Comments: REC TPN: 225 g dextrose, 60 g AA, 20 g lipid Can dc TPN once PO intake meeting > 75% est needs Expected Outcomes/Goals: TPN infusion initiated and meeting > 75% est needs within 24 - 48 hrs Malnutrition Findings: Food and Nutrition Intake (Mod: <75% est energy req 7days Weight Status: Overweight NEO ASHRAF MD May 12, 2017 14:09
--- NOTE | 2017-05-12 17:33 | PDOC ---
PROGRESS NOTES Subjective Subjective HPI - Colon ca -s/p chemo 04/27/17. No evidence of disease after surgery. ROS - dyspnea better Objective Objective Vital Signs Date Time Temp Pulse Resp B/P (MAP) Pulse Ox O2 Delivery O2 Flow Rate FiO2 05/12/17 16:00 98.5 70 17 109/59 (76) 91 Room Air 98.5 05/12/17 07:00 2.0 Intake and Output 05/12/17 07:00 Intake Total 3229.59 ml Output Total 2735 ml Balance 494.59 ml Intake Oral 250 ml IV Total 2979.59 ml Output Urine Total 2505 ml Stool Total 200 ml Emesis 30 ml Physical Exam Heart: Normal S1, Normal S2 General: Alert, Oriented X3 Lungs: Clear to auscultation Psych/Mental Status: Mental status NL Assessment Assessment Assessment/Plan 1. Colon ca -s/p chemo 04/27/17. No evidence of disease after surgery. 2. Urinary tract infection. Appreciate ID management. 3. Neutropenia and thrombocytopenia from chemo, monitor cbc. WBC 3.5, plt 41. 4. had code on floor - was shocked 6 times and has had some brief torsades since being in ICU, not intubated and ok bp and feels ok. Management per Dr Fernando. 5. Progressive dyspnea, multifactorial secondary to CHF, weakness from her recent chemotherapy and toxicities/ NEW CM EF 25 % Comment Review of Relevant I have reviewed the following items armida (where applicable) has been applied. Labs Laboratory Tests Test 05/10/17 19:54 05/11/17 05:00 05/12/17 05:00 O2 Saturation 89 % (92-99) Arterial Blood pH 7.36 (7.35-7.45) Arterial Blood pCO2 at Patient Temp 27 mmHg (35-46) Arterial Blood pO2 at Patient Temp 61 mmHg (65-108) Arterial Blood HCO3 15 mmol/L (21-28) Arterial Blood Base Excess -9 mmol/L (-3-3) FiO2 44 White Blood Count 2.9 x10^3/uL (4.0-11.0) 3.5 x10^3/uL (4.0-11.0) Red Blood Count 2.76 x10^6/uL (3.50-5.40) 2.52 x10^6/uL (3.50-5.40) Hemoglobin 9.3 g/dL (12.0-15.5) 8.6 g/dL (12.0-15.5) Hematocrit 27.1 % (36.0-47.0) 25.2 % (36.0-47.0) Mean Corpuscular Volume 98 fL (79-100) 100 fL (79-100) Mean Corpuscular Hemoglobin 34 pg (25-35) 34 pg (25-35) Mean Corpuscular Hemoglobin Concent 34 g/dL (31-37) 34 g/dL (31-37) Red Cell Distribution Width 20.7 % (11.5-14.5) 21.1 % (11.5-14.5) Platelet Count 27 x10^3/uL (140-400) 41 x10^3/uL (140-400) Neutrophils (%) (Auto) 64 % (31-73) 55 % (31-73) Lymphocytes (%) (Auto) 17 % (24-48) 23 % (24-48) Monocytes (%) (Auto) 19 % (0-9) 22 % (0-9) Eosinophils (%) (Auto) 0 % (0-3) 0 % (0-3) Basophils (%) (Auto) 0 % (0-3) 0 % (0-3) Neutrophils # (Auto) 1.9 x10^3uL (1.8-7.7) 1.9 x10^3uL (1.8-7.7) Lymphocytes # (Auto) 0.5 x10^3/uL (1.0-4.8) 0.8 x10^3/uL (1.0-4.8) Monocytes # (Auto) 0.6 x10^3/uL (0.0-1.1) 0.8 x10^3/uL (0.0-1.1) Eosinophils # (Auto) 0.0 x10^3/uL (0.0-0.7) 0.0 x10^3/uL (0.0-0.7) Basophils # (Auto) 0.0 x10^3/uL (0.0-0.2) 0.0 x10^3/uL (0.0-0.2) Sodium Level 131 mmol/L (136-145) 134 mmol/L (136-145) Potassium Level 3.8 mmol/L (3.5-5.1) 4.6 mmol/L (3.5-5.1) Chloride Level 100 mmol/L (98-107) 101 mmol/L (98-107) Carbon Dioxide Level 22 mmol/L (21-32) 26 mmol/L (21-32) Anion Gap 9 (6-14) 7 (6-14) Blood Urea Nitrogen 9 mg/dL (7-20) 11 mg/dL (7-20) Creatinine 1.0 mg/dL (0.6-1.0) 0.8 mg/dL (0.6-1.0) Estimated GFR (Cockcroft-Gault) 54.2 70.1 BUN/Creatinine Ratio 9 (6-20) 14 (6-20) Glucose Level 177 mg/dL (70-99) 108 mg/dL (70-99) Calcium Level 7.3 mg/dL (8.5-10.1) 7.4 mg/dL (8.5-10.1) Phosphorus Level 2.2 mg/dL (2.6-4.7) 2.9 mg/dL (2.6-4.7) Magnesium Level 1.7 mg/dL (1.8-2.4) 2.2 mg/dL (1.8-2.4) Total Bilirubin 0.3 mg/dL (0.2-1.0) 0.4 mg/dL (0.2-1.0) Aspartate Amino Transf (AST/SGOT) 34 U/L (15-37) 25 U/L (15-37) Alanine Aminotransferase (ALT/SGPT) 34 U/L (14-59) 24 U/L (14-59) Alkaline Phosphatase 77 U/L (46-116) 82 U/L (46-116) Total Protein 5.7 g/dL (6.4-8.2) 5.0 g/dL (6.4-8.2) Albumin 2.2 g/dL (3.4-5.0) 1.8 g/dL (3.4-5.0) Albumin/Globulin Ratio 0.6 (1.0-1.7) 0.6 (1.0-1.7) Triglycerides Level 121 mg/dL (0-150) Laboratory Tests Test 05/12/17 05:00 White Blood Count 3.5 x10^3/uL (4.0-11.0) Red Blood Count 2.52 x10^6/uL (3.50-5.40) Hemoglobin 8.6 g/dL (12.0-15.5) Hematocrit 25.2 % (36.0-47.0) Mean Corpuscular Volume 100 fL (79-100) Mean Corpuscular Hemoglobin 34 pg (25-35) Mean Corpuscular Hemoglobin Concent 34 g/dL (31-37) Red Cell Distribution Width 21.1 % (11.5-14.5) Platelet Count 41 x10^3/uL (140-400) Neutrophils (%) (Auto) 55 % (31-73) Lymphocytes (%) (Auto) 23 % (24-48) Monocytes (%) (Auto) 22 % (0-9) Eosinophils (%) (Auto) 0 % (0-3) Basophils (%) (Auto) 0 % (0-3) Neutrophils # (Auto) 1.9 x10^3uL (1.8-7.7) Lymphocytes # (Auto) 0.8 x10^3/uL (1.0-4.8) Monocytes # (Auto) 0.8 x10^3/uL (0.0-1.1) Eosinophils # (Auto) 0.0 x10^3/uL (0.0-0.7) Basophils # (Auto) 0.0 x10^3/uL (0.0-0.2) Sodium Level 134 mmol/L (136-145) Potassium Level 4.6 mmol/L (3.5-5.1) Chloride Level 101 mmol/L (98-107) Carbon Dioxide Level 26 mmol/L (21-32) Anion Gap 7 (6-14) Blood Urea Nitrogen 11 mg/dL (7-20) Creatinine 0.8 mg/dL (0.6-1.0) Estimated GFR (Cockcroft-Gault) 70.1 BUN/Creatinine Ratio 14 (6-20) Glucose Level 108 mg/dL (70-99) Calcium Level 7.4 mg/dL (8.5-10.1) Phosphorus Level 2.9 mg/dL (2.6-4.7) Magnesium Level 2.2 mg/dL (1.8-2.4) Total Bilirubin 0.4 mg/dL (0.2-1.0) Aspartate Amino Transf (AST/SGOT) 25 U/L (15-37) Alanine Aminotransferase (ALT/SGPT) 24 U/L (14-59) Alkaline Phosphatase 82 U/L (46-116) Total Protein 5.0 g/dL (6.4-8.2) Albumin 1.8 g/dL (3.4-5.0) Albumin/Globulin Ratio 0.6 (1.0-1.7) Microbiology 05/06/17 Urine Culture - Final, Complete 05/06/17 Urine Culture Result 1 (MARINE) - Final, Complete Medications Current Medications Ceftriaxone Sodium 1 gm/ Dextrose 50 ml @ 100 mls/hr Q24H IV ; Start 05/05/17 at 18:00; Status UNV Vancomycin HCl (Vanco Per Pharmacy) 1 each PRN DAILY PRN MC SEE COMMENTS Last administered on 05/06/17 12:53; Start 05/05/17 at 18:00; Stop 05/06/17 at 13:10 ; Status DC Ceftriaxone Sodium (Rocephin) 1 gm Q24H IVP Last administered on 05/11/17 18: 08; Start 05/05/17 at 18:00 Sodium Chloride 1,000 ml @ 75 mls/hr [id number] IV Last administered on 04:20; Start 05/05/17 at 18:15; Stop 05/08/17 at 13:44; Status DC Atorvastatin Calcium (Lipitor) 40 mg DAILY PO Last administered on 05/12/17 08:37; Start 05/06/17 at 09:00 Diazepam (Valium) 5 mg TID PO Last administered on 05/12/17 15:13; Start 05/05/17 at 21:00 Levothyroxine Sodium (Synthroid) 75 mcg DAILYAC PO Last administered on 08:37; Start 05/06/17 at 07:30 Metoprolol Tartrate (Lopressor) 25 mg BID PO Last administered on 05/12/17 08 :38; Start 05/05/17 at 21:00 Pantoprazole Sodium (Protonix) 40 mg DAILY PO Last administered on 05/12/17 08:37; Start 05/06/17 at 09:00 Tramadol HCl (Ultram) 50 mg PRN Q6HRS PRN PO PAIN; Start 05/05/17 at 18:15 Ondansetron HCl (Zofran Odt) 8 mg PRN Q12HRS PRN PO NAUSEA/VOMITING Last administered on 05/11/17 11:52; Start 05/05/17 at 18:30 Venlafaxine HCl (Effexor Xr) 75 mg DAILY PO Last administered on 05/12/17 08: 37; Start 05/06/17 at 09:00 Vancomycin HCl 1.75 gm/Dextrose 500 ml @ 250 mls/hr 1X ONCE IV Last administered on 05/05/17 19:21; Start 05/05/17 at 18:30; Stop 05/05/17 at 20:29 ; Status DC Vancomycin HCl 1 gm/Dextrose 250 ml @ 250 mls/hr Q24H IV ; Start 05/06/17 at 19 :30; Stop 05/06/17 at 19:30; Status DC Vancomycin HCl 1 each 1X ONCE MC ; Start 05/07/17 at 19:00; Stop 05/07/17 at 19:01; Status Cancel Acyclovir (Zovirax) 400 mg [id number] PO Last administered on 05/12/17 15:13; Start 05/06/17 at 09:00 Doxycycline Hyclate (Vibra-Tab) 100 mg BID PO Last administered on 05/11/17 21:01; Start 05/06/17 at 14:00; Stop 05/12/17 at 07:50; Status DC Multi-Ingredient Mouthwash/Gargle (Magic Mouthwash) 10 ml PRN QID PRN PO MOUTH PAIN Last administered on 05/08/17 10:12; Start 05/07/17 at 09:00 Nystatin 5 ml [id number] Last administered on 05/12/17 15:13; Start at 13:00 Potassium Chloride/Dextrose/ Sod Cl 1,000 ml @ 75 mls/hr [id number] IV ; Start at 14:00; Stop 05/08/17 at 16:37; Status DC Potassium Chloride (Klor-Con) 40 meq 1X ONCE PO Last administered on 14:12; Start 05/08/17 at 14:00; Stop 05/08/17 at 14:01; Status DC Amiodarone HCl 900 mg/Dextrose 518 ml @ 34.53 mls/ hr CONT PRN IV SEE I/O RECORD Last administered on 05/09/17 14:28; Start 05/08/17 at 14:45; Stop at 14:29; Status DC Amiodarone HCl 900 mg/Dextrose 518 ml @ 0 mls/hr CONT PRN IV SEE I/O RECORD; Start 05/08/17 at 14:45; Status UNV Sodium Chloride 500 ml @ 500 mls/hr 1X ONCE IV Last administered on 15:30; Start 05/08/17 at 15:30; Stop 05/08/17 at 16:29; Status DC Sodium Bicarbonate 100 meq 1X ONCE IV Last administered on 05/08/17 16:52; Start 05/08/17 at 15:30; Stop 05/08/17 at 15:31; Status DC Magnesium Sulfate/ Dextrose 100 ml @ 100 mls/hr 1X ONCE IV Last administered on 05/08/17 16:00; Start 05/08/17 at 16:00; Stop 05/08/17 at 16:59; Status DC Magnesium Sulfate/ Dextrose 100 ml @ 100 mls/hr 1X ONCE IV Last administered on 05/08/17 16:00; Start 05/08/17 at 16:00; Stop 05/08/17 at 16:59; Status DC Potassium Chloride (Klor-Con) 40 meq [id number] PO ; Start 05/09/17 at 08:00; Stop 05/09/17 at 08:17; Status DC Potassium Chloride (Klor-Con) 40 meq 1X ONCE PO Last administered on 16:53; Start 05/08/17 at 17:00; Stop 05/08/17 at 17:01; Status DC Potassium Chloride/Sodium Chloride 1,000 ml @ 80 mls/hr [id number] IV Last administered on 05/09/17 05:49; Start 05/08/17 at 17:30; Stop 05/09/17 at 18 :27; Status DC Amiodarone HCl 150 mg/Dextrose 103 ml @ 618 mls/hr 1X ONCE IV Last administered on 05/09/17 07:22; Start 05/09/17 at 07:00; Stop 05/09/17 at 07 :09; Status DC Magnesium Sulfate/ Dextrose 50 ml @ 25 mls/hr 1X ONCE IV Last administered on 05/09/17 07:11; Start 05/09/17 at 07:00; Stop 05/09/17 at 08:59; Status DC Potassium Chloride 50 ml @ 25 mls/hr PRN Q2HRS PRN IV K-3.1 TO 3.5 Last administered on 05/09/17 11:44; Start 05/09/17 at 06:45; Stop 05/09/17 at 11 :44; Status DC Potassium Chloride 50 ml @ 25 mls/hr PRN Q2HRS PRN IV K 2.6 TO 3; Start at 06:45 Potassium Chloride 50 ml @ 25 mls/hr PRN Q2HRS PRN IV FOR K<2.6; Start at 08:00 Magnesium Sulfate/ Dextrose 100 ml @ 50 mls/hr PRN DAILY PRN IV MAG<1.8 Last administered on 05/11/17 09:59; Start 05/09/17 at 09:00 Potassium Chloride 50 ml @ 50 mls/hr Q1H IV ; Start 05/09/17 at 08:15; Stop at 10:14; Status Cancel Potassium Chloride 50 ml @ 50 mls/hr DAILY IV Last administered on 05/11/17 08:51; Start 05/10/17 at 09:00; Stop 05/11/17 at 09:59; Status DC Potassium Chloride 50 ml @ 50 mls/hr Q1H IV Last administered on 05/09/17 10: 00; Start 05/09/17 at 09:00; Stop 05/09/17 at 10:59; Status DC Potassium Chloride (Klor-Con) 40 meq 1X ONCE PO ; Start 05/09/17 at 11:00; Stop 05/09/17 at 11:01; Status DC Potassium Chloride/Dextrose/ Sod Cl 1,000 ml @ 75 mls/hr [id number] IV Last administered on 05/10/17 17:58; Start 05/09/17 at 11:00; Stop 05/11/17 at 08 :26; Status DC Calcium Gluconate (Calcium Gluconate) 1,000 mg 1X ONCE IVP Last administered on 05/09/17 14:28; Start 05/09/17 at 14:00; Stop 05/09/17 at 14:01; Status DC Info 1 each PRN DAILY PRN MC SEE COMMENTS Last administered on 05/12/17 13:06 ; Start 05/09/17 at 13:45 Amiodarone HCl 150 mg/Dextrose 103 ml @ 618 mls/hr 1X ONCE IV Last administered on 05/09/17 14:28; Start 05/09/17 at 14:00; Stop 05/09/17 at 14 :09; Status DC Amiodarone HCl (Cordarone) 400 mg BID PO Last administered on 05/12/17 08:37 ; Start 05/09/17 at 21:00 Sodium Chloride 90 meq/Potassium Chloride 50 meq/ Potassium Phosphate 13.6 mmol/ Magnesium Sulfate 10 meq/ Calcium Gluconate 10 meq/ Multivitamins 10 ml/Chromium / Copper/Manganese/ Seleni/Zn 1 ml/ Total Parenteral Nutrition/Amino Acids/ Dextrose/ Fat Emulsion Intravenous 1,387.0013 ml @ 3.625 mls/hr TPN CONT IV ; Start 05/09/17 at 22:00; Status UNV Sodium Chloride 90 meq/Potassium Acetate 70 meq/ Potassium Phosphate 18 mmol/ Magnesium Sulfate 12 meq/Calcium Gluconate 10 meq/ Multivitamins 10 ml/Chromium / Copper/Manganese/ Seleni/Zn 1 ml/ Total Parenteral Nutrition/Amino Acids/ Dextrose/ Fat Emulsion Intravenous 1,512 ml @ 63 mls/hr TPN CONT IV Last administered on 05/09/17 21:39; Start 05/09/17 at 22:00; Stop 05/10/17 at 21 :59; Status DC Magnesium Sulfate/ Dextrose 50 ml @ 25 mls/hr 1X ONCE IV ; Start 05/09/17 at 15:15; Stop 05/09/17 at 17:14; Status DC Procainamide HCl 2000 mg/Dextrose 520 ml @ 31.2 mls/hr CONT PRN IV SEE I/O RECORD Last administered on 05/11/17 21:55; Start 05/09/17 at 16:00; Stop at 11:28; Status DC Procainamide HCl 500 mg/Dextrose 55 ml @ 110 mls/hr 1X ONCE IV Last administered on 05/09/17 15:49; Start 05/09/17 at 15:30; Stop 05/09/17 at 15 :59; Status DC Procainamide HCl 2000 mg/Dextrose 520 ml @ 0 mls/hr CONT PRN IV SEE I/O RECORD ; Start 05/09/17 at 15:45; Status UNV Sodium Phosphate 30 mmol/Dextrose 260 ml @ 65 mls/hr 1X ONCE IV ; Start 05/09 at 17:45; Stop 05/09/17 at 21:44; Status Cancel Sodium Phosphate 20 mmol/Dextrose 256.6667 ml @ 64.167 m... 1X ONCE IV Last administered on 05/09/17 18:10; Start 05/09/17 at 17:45; Stop 05/09/17 at 21 :44; Status DC Magnesium Sulfate/ Dextrose 100 ml @ 100 mls/hr 1X ONCE IV Last administered on 05/10/17 01:48; Start 05/10/17 at 02:00; Stop 05/10/17 at 02:59; Status DC Midazolam HCl (Versed) 1 mg PRN Q2HR PRN IV SEDATION; Start 05/10/17 at 02:30 Midazolam HCl (Versed) 2 mg PRN Q2HR PRN IV SEDATION; Start 05/10/17 at 02:30 Amiodarone HCl 900 mg/Dextrose 518 ml @ 0 mls/hr CONT PRN IV SEE I/O RECORD; Start 05/10/17 at 03:45; Status UNV Amiodarone HCl 450 mg/Dextrose 259 ml @ 17.26 mls/ hr CONT PRN IV SEE I/O RECORD Last administered on 05/11/17 05:43; Start 05/10/17 at 04:00 Lidocaine HCl/ Dextrose 500 ml @ 0 mls/hr CONT PRN IV SEE I/O RECORD Last administered on 05/12/17 05:40; Start 05/10/17 at 04:00; Stop 05/12/17 at 17 :20; Status DC Lidocaine HCl (Lidocaine HCl 2% Abboject) 100 mg 1X ONCE IV Last administered on 05/10/17 04:13; Start 05/10/17 at 04:30; Stop 05/10/17 at 04:31; Status DC Amiodarone HCl (Cordarone) 300 mg STK-MED ONCE .ROUTE ; Start 05/09/17 at 23:00 ; Stop 05/10/17 at 11:00; Status DC Atropine Sulfate 1 mg STK-MED ONCE .ROUTE ; Start 05/09/17 at 23:00; Stop at 11:00; Status DC Epinephrine HCl (EPINEPHrine SYRINGE) 3 mg STK-MED ONCE .ROUTE ; Start at 23:00; Stop 05/10/17 at 11:00; Status DC Lidocaine HCl (Lidocaine HCl 2% Abboject) 100 mg STK-MED ONCE .ROUTE ; Start at 23:00; Stop 05/10/17 at 11:00; Status DC Magnesium Sulfate/ Dextrose (Magnesium Sulfate PREMIX 1GM) 2 gm STK-MED ONCE IV ; Start 05/09/17 at 23:00; Stop 05/10/17 at 11:00; Status DC Potassium Phosphate 13.6 mmol/Dextrose 104.5333 ml @ 52.267 m... ONCE ONCE IV Last administered on 05/10/17 15:54; Start 05/10/17 at 14:00; Stop at 15:59; Status DC Sodium Acetate 90 meq/Potassium Chloride 70 meq/ Potassium Phosphate 20.4 mmol/ Magnesium Sulfate 18 meq/ Calcium Gluconate 10 meq/ Multivitamins 10 ml/Chromium / Copper/Manganese/ Seleni/Zn 1 ml/ Total Parenteral Nutrition/Amino Acids/ Dextrose/ Fat Emulsion Intravenous 1,512 ml @ 63 mls/hr TPN CONT IV Last administered on 05/10/17 22:00; Start 05/10/17 at 22:00; Stop 05/11/17 at 21 :59; Status DC Lidocaine/Sodium Bicarbonate (Buffered Lidocaine 1%) 20 ml STK-MED ONCE IJ ; Start 05/10/17 at 13:45; Stop 05/10/17 at 13:46; Status DC Lidocaine/Sodium Bicarbonate (Buffered Lidocaine 1%) 3 ml 1X ONCE IJ Last administered on 05/10/17 13:45; Start 05/10/17 at 13:45; Stop 05/10/17 at 13 :57; Status DC Sodium Chloride 250 ml @ 250 mls/hr 1X ONCE IV ; Start 05/10/17 at 13:45; Stop 05/10/17 at 14:44; Status DC Albuterol Sulfate (Ventolin Neb Soln) 2.5 mg 1X ONCE NEB Last administered on 05/10/17 19:54; Start 05/10/17 at 20:00; Stop 05/10/17 at 20:01; Status DC Furosemide (Lasix) 40 mg 1X ONCE IVP Last administered on 05/10/17 21:22; Start 05/10/17 at 21:30; Stop 05/10/17 at 21:31; Status DC Dobutamine HCl/ Dextrose 250 ml @ 0 mls/hr CONT PRN IV SEE I/O RECORD Last administered on 05/12/17 05:01; Start 05/10/17 at 21:15 Sodium Acetate 120 meq/Potassium Chloride 70 meq/ Potassium Phosphate 27.2 mmol/ Magnesium Sulfate 22 meq/ Calcium Gluconate 5 meq/ Multivitamins 10 ml/Chromium / Copper/Manganese/ Seleni/Zn 1 ml/ Total Parenteral Nutrition/Amino Acids/ Dextrose/ Fat Emulsion Intravenous 1,512 ml @ 63 mls/hr TPN CONT IV ; Start 05/11/17 at 22:00; Stop 05/12/17 at 21:59; Status Cancel Potassium Phosphate 13.6 mmol/Dextrose 104.5333 ml @ 52.267 m... ONCE ONCE IV Last administered on 05/11/17 13:24; Start 05/11/17 at 13:00; Stop at 14:59; Status DC Sodium Acetate 120 meq/Potassium Chloride 70 meq/ Potassium Phosphate 25 mmol/ Magnesium Sulfate 22 meq/Calcium Gluconate 5 meq/ Multivitamins 10 ml/Chromium/ Copper/Manganese/ Seleni/Zn 1 ml/ Total Parenteral Nutrition/Amino Acids/ Dextrose/ Fat Emulsion Intravenous 1,512 ml @ 63 mls/hr TPN CONT IV Last administered on 05/11/17 21:56; Start 05/11/17 at 22:00; Stop 05/12/17 at 21 :59 Furosemide (Lasix) 40 mg DAILY IVP Last administered on 05/12/17 08:48; Start 05/12/17 at 09:00 Sodium Acetate 120 meq/Potassium Chloride 70 meq/ Potassium Phosphate 25 mmol/ Magnesium Sulfate 22 meq/Calcium Gluconate 5 meq/ Multivitamins 10 ml/Chromium/ Copper/Manganese/ Seleni/Zn 1 ml/ Total Parenteral Nutrition/Amino Acids/ Dextrose/ Fat Emulsion Intravenous 1,512 ml @ 63 mls/hr TPN CONT IV ; Start 05/12/17 at 22:00; Stop 05/13/17 at 21:59 Magnesium Sulfate/ Dextrose (Magnesium Sulfate PREMIX 1GM) 2 gm STK-MED ONCE IV ; Start 05/05/17 at 12:00; Stop 05/12/17 at 17:24; Status DC Active Scripts Active Reported Levofloxacin 500 Mg Tablet 500 Mg PO DAILY Tramadol Hcl 50 Mg Tablet 50 Mg PO Q6H PRN Ondansetron Hcl 4 Mg Tablet 8 Mg PO BID PRN [place] 5-325 Tablet (Acetaminophen/Hydrocodone Bitart) 1 Each Tablet 1-2 Tab PO Q4HRS PRN Atorvastatin Calcium 40 Mg Tablet 1 Tab PO DAILY Metoprolol Tartrate 25 Mg Tablet 1 Tab PO BID Pantoprazole Sodium 40 Mg Tablet.dr 1 Tab PO DAILY Diazepam 5 Mg Tablet 5 Mg PO TID Venlafaxine Hcl Er (Venlafaxine Hcl) 75 Mg Cap.er.24h 75 Mg PO DAILY Synthroid (Levothyroxine Sodium) 75 Mcg Tablet 75 Mcg PO DAILYAC Vitals/I & O Vital Sign - Last 24 Hours 05/11/17 05/11/17 05/11/17 05/11/17 18:00 19:00 20:00 20:00 Temp 97.6 97.6 Pulse 62 62 64 Resp 22 20 23 B/P (MAP) 122/68 (86) 97/60 (72) 116/54 (74) Pulse Ox 93 96 96 O2 Delivery Nasal Cannula Nasal Cannula Nasal Cannula Nasal Cannula O2 Flow Rate 2.0 2.0 2.0 2.0 05/11/17 05/11/17 05/11/17 05/11/17 21:00 21:00 21:02 22:00 Pulse 66 65 66 67 Resp 10 22 B/P (MAP) 113/66 113/66 (82) 113/66 108/67 (81) Pulse Ox 95 95 O2 Delivery Nasal Cannula Nasal Cannula O2 Flow Rate 2.0 2.0 05/11/17 05/12/17 05/12/17 05/12/17 23:00 00:00 00:01 01:00 Temp 97.6 97.6 Pulse 68 66 67 Resp 20 21 20 B/P (MAP) 112/66 (81) 122/69 (86) 105/61 (76) Pulse Ox 96 96 95 O2 Delivery Nasal Cannula Nasal Cannula Nasal Cannula Nasal Cannula O2 Flow Rate 2.0 2.0 2.0 2.0 05/12/17 05/12/17 05/12/17 05/12/17 02:01 03:00 04:00 04:12 Temp 97.9 97.9 Pulse 67 67 67 Resp 16 16 19 B/P (MAP) 113/64 (80) 116/63 (80) 120/63 (82) Pulse Ox 96 96 95 O2 Delivery Nasal Cannula Nasal Cannula Nasal Cannula Nasal Cannula O2 Flow Rate 2.0 2.0 2.0 2.0 05/12/17 05/12/17 05/12/17 05/12/17 05:11 06:00 07:00 08:00 Temp 98.2 98.2 Pulse 69 71 73 73 Resp 19 17 21 24 B/P (MAP) 96/54 (68) 109/63 (78) 113/66 (82) 134/63 (86) Pulse Ox 93 94 94 92 O2 Delivery Nasal Cannula Nasal Cannula Nasal Cannula Room Air O2 Flow Rate 2.0 2.0 2.0 05/12/17 05/12/17 05/12/17 05/12/17 08:00 08:37 08:38 09:00 Pulse 73 73 71 Resp 21 B/P (MAP) 134/63 134/63 116/65 (82) Pulse Ox 91 O2 Delivery Room Air Room Air 05/12/17 05/12/17 05/12/17 05/12/17 10:00 11:00 12:00 12:00 Temp 98.5 98.5 Pulse 59 58 62 Resp 21 21 26 B/P (MAP) 104/63 (77) 97/55 (69) 98/55 (69) Pulse Ox 91 93 93 O2 Delivery Room Air Room Air Room Air Room Air 05/12/17 05/12/17 05/12/17 05/12/17 13:00 14:00 15:00 16:00 Pulse 63 64 66 Resp 21 21 22 B/P (MAP) 106/59 (75) 107/66 (80) 114/54 (74) Pulse Ox 93 93 92 O2 Delivery Room Air Room Air Room Air Room Air 05/12/17 16:00 Temp 98.5 98.5 Pulse 70 Resp 17 B/P (MAP) 109/59 (76) Pulse Ox 91 O2 Delivery Room Air Intake and Output 05/11/17 05/11/17 05/12/17 15:00 23:00 07:00 Intake Total 350 ml 1682.59 ml 1197 ml Output Total 1410 ml 945 ml 380 ml Balance -1060 ml 737.59 ml 817 ml Nutrition Consultation Dietary Evaluation: Recommendations by RD: PPN/TPN Comments: Continue current TPN infusion: 225 g dextrose, 60 g AA, 20 g lipid Encouraged some PO intake to maintain gut health Can dc TPN once PO intake meeting > 75% est needs Expected Outcomes/Goals: TPN infusion initiated and meeting > 75% est needs within 24 - 48 hrs - met, ongoing Malnutrition Findings: Food and Nutrition Intake (Mod: <75% est energy req 7days Weight Status: Overweight DANIEL MORALEZ MD May 12, 2017 17:33
[2017-05-12] MEDS: cefTRIAXone IV Push 1 GM VIAL. IVP SCH (17:46)
[2017-05-12] MEDS ORDERED: [UNRECOGNIZED DRUG - OTHER] IV SCH ×10 (22:00)
[2017-05-12] MEDS ORDERED: DEXTROSE 70% IV SCH ×10 (22:00)
[2017-05-12] MEDS ORDERED: AMINO ACIDS IV SCH ×10 (22:00)
[2017-05-12] MEDS ORDERED: TOTAL PARENTERAL NUTRITION IV SCH ×10 (22:00)
[2017-05-13] VITALS (24 sets, daily range): BP systolic 81–136; BP diastolic 56–80
[2017-05-13 05:15] LABS: BASO % 1 % (0-3); EOS % 0 % (0-3); HEMATOCRIT 27.1 % (36.0-47.0); HEMOGLOBIN 9.3 g/dL (12.0-15.5); LYMPH % 20 % (24-48); MEAN CORPUSCULAR HEMOGLOBIN 34 pg (25-35); MEAN CORPUSCULAR HGB CONC 34 g/dL (31-37); MEAN CORPUSCULAR VOLUME 100 fL (79-100); MONO % 22 % (0-9); NEUT % 57 % (31-73); PLATELET COUNT 69 x10^3/uL (140-400); RED BLOOD COUNT 2.72 x10^6/uL (3.50-5.40); RED CELL DISTRIBUTION WIDTH 21.1 % (11.5-14.5); WHITE BLOOD COUNT 5.2 x10^3/uL (4.0-11.0)
[2017-05-13 06:33] LABS: ALBUMIN 2.1 g/dL (3.4-5.0); ALBUMIN/GLOBULIN RATIO 0.7 (1.0-1.7); CALCIUM 7.9 mg/dL (8.5-10.1); CREATININE 0.9 mg/dL (0.6-1.0); GFR 61.2; MAGNESIUM 2.1 mg/dL (1.8-2.4); PHOSPHORUS 3.7 mg/dL (2.6-4.7); POTASSIUM 4.6 mmol/L (3.5-5.1); TOTAL BILIRUBIN 0.4 mg/dL (0.2-1.0); TOTAL PROTEIN 5.3 g/dL (6.4-8.2)
--- NOTE | 2017-05-13 08:09 | PDOC ---
Infectious Disease Note Subjective Subjective pt feeling ok, Nausea resolved ROS ROS GEN: Denies fevers, chills, sweats HEENT: Denies blurred vision, sore throat CV: Denies chest pain RESP: Denies shortness of air, cough GI: Denies n/v/d NEURO: Denies confusion, dizziness MSK: Denies weakness, joint pain/swelling Vital Sign Vital Signs Vital Signs Date Time Temp Pulse Resp B/P (MAP) Pulse Ox O2 Delivery O2 Flow Rate FiO2 05/13/17 07:00 77 19 121/66 (84) 90 Room Air 05/13/17 04:00 98.5 98.5 05/12/17 07:00 2.0 Physical Exam PHYSICAL EXAM GENERAL: NAD, Alert. Looks better HEENT: PERRL, OC/OP -dry. Lips with some crusting - better. Dentures NECK: Supple, no JVD, no LN LUNGS: Clear. on 02 HEART: S1S2, no gallop, no murmur ABD: Soft, NT, no organomegaly, no rebound, Ostomy [place]aca EXT: No edema, no cyanosis [employer]: Alert, oriented x 3, no focal neurologic deficit SKIN: No rash IV: Port left chest - clean. [facility] Labs Lab Laboratory Tests Test 05/13/17 05:00 White Blood Count 5.2 x10^3/uL (4.0-11.0) Red Blood Count 2.72 x10^6/uL (3.50-5.40) Hemoglobin 9.3 g/dL (12.0-15.5) Hematocrit 27.1 % (36.0-47.0) Mean Corpuscular Volume 100 fL (79-100) Mean Corpuscular Hemoglobin 34 pg (25-35) Mean Corpuscular Hemoglobin Concent 34 g/dL (31-37) Red Cell Distribution Width 21.1 % (11.5-14.5) Platelet Count 69 x10^3/uL (140-400) Neutrophils (%) (Auto) 57 % (31-73) Lymphocytes (%) (Auto) 20 % (24-48) Monocytes (%) (Auto) 22 % (0-9) Eosinophils (%) (Auto) 0 % (0-3) Basophils (%) (Auto) 1 % (0-3) Neutrophils # (Auto) 2.9 x10^3uL (1.8-7.7) Lymphocytes # (Auto) 1.0 x10^3/uL (1.0-4.8) Monocytes # (Auto) 1.2 x10^3/uL (0.0-1.1) Eosinophils # (Auto) 0.0 x10^3/uL (0.0-0.7) Basophils # (Auto) 0.0 x10^3/uL (0.0-0.2) Sodium Level 133 mmol/L (136-145) Potassium Level 4.6 mmol/L (3.5-5.1) Chloride Level 99 mmol/L (98-107) Carbon Dioxide Level 29 mmol/L (21-32) Anion Gap 5 (6-14) Blood Urea Nitrogen 15 mg/dL (7-20) Creatinine 0.9 mg/dL (0.6-1.0) Estimated GFR (Cockcroft-Gault) 61.2 BUN/Creatinine Ratio 17 (6-20) Glucose Level 112 mg/dL (70-99) Calcium Level 7.9 mg/dL (8.5-10.1) Phosphorus Level 3.7 mg/dL (2.6-4.7) Magnesium Level 2.1 mg/dL (1.8-2.4) Total Bilirubin 0.4 mg/dL (0.2-1.0) Aspartate Amino Transf (AST/SGOT) 20 U/L (15-37) Alanine Aminotransferase (ALT/SGPT) 19 U/L (14-59) Alkaline Phosphatase 81 U/L (46-116) Total Protein 5.3 g/dL (6.4-8.2) Albumin 2.1 g/dL (3.4-5.0) Albumin/Globulin Ratio 0.7 (1.0-1.7) Objective Assessment S/p code 05/09 - V - tach s/p shock now on Lidocaine/Procaine/Amiodarone/ Dobutamine Neutropenia and thrombocytopenia from chemo.- improved Fever, chills prior to admit bronchitis possible early pneumonia - CXR improving - seen this am Pyruia and dysuria Mucositis dysphagia History of colon cancer stage 4, status post surgery and recently on chemotherapy. Oral mucositis. Renal insufficiency. Hyperlipidemia. Hypertension. Degenerative joint disease. Hypothyroidism. Plan Plan of Care 1. Discontinue Rocephin today (05/13) d/c'd doxycycline today (05/12) 2. continue acyclovir for now 3 supportive care 4.pulm and oncology/card following Follow up labs d/w family DANIEL FORD MD May 13, 2017 08:09
[2017-05-13] MEDS: ATORVASTATIN CALCIUM 40 MG TABLET. PO SCH (08:33)
[2017-05-13] MEDS: NYSTATIN 100,000 UNITS/ML 5 ML ORAL.SUSP. SWSW SCH ×4 (08:33→20:59)
[2017-05-13] MEDS: METOPROLOL TART IMMED RELEASE 25 MG TABLET. PO SCH ×2 (08:34→21:00)
[2017-05-13] MEDS: PANTOPRAZOLE 40 MG TABLET.DR. PO SCH (08:34)
[2017-05-13] MEDS: AMIODARONE HCL 200 MG TABLET. PO SCH ×2 (08:34→20:58)
[2017-05-13] MEDS: VENLAFAXINE XR 37.5 MG CAP.ER.24H. PO SCH (08:34)
[2017-05-13] MEDS: diazePAM 5 MG TABLET PO SCH ×3 (08:34→20:58)
[2017-05-13] MEDS: FUROSEMIDE 40 MG/4 ML VIAL. IVP SCH (08:34)
[2017-05-13] MEDS: LEVOTHYROXINE 75 MCG TABLET PO SCH (08:37)
--- NOTE | 2017-05-13 09:06 | PDOC ---
GENERAL General: vss and afebrile. awake and alert and mouth improving. chest clear and heart regular. transitioned to amiodarone as antiarrhymic. no further v-tach. will advance diet as tolerated. blood counts are recovering nicely. family deciding regarding further cardiac intervention which I believe she will need. Problems: VITAL SIGNS Vital Signs: Vital Signs Date Time Temp Pulse Resp B/P (MAP) Pulse Ox O2 Delivery O2 Flow Rate FiO2 05/13/17 08:34 64 136/74 05/13/17 08:00 98.3 19 95 Nasal Cannula 2.0 98.3 I & O I & O Intake and Output 05/13/17 07:00 Intake Total 2270.98 ml Output Total 3915 ml Balance -1644.02 ml Intake Oral 370 ml IV Total 1900.98 ml Output Urine Total 3115 ml Stool Total 800 ml ALLERGIES Allergies: Allergies Coded Allergies Type Severity Reaction Last Updated Verified codeine Adverse Reaction Intermediate Patient states hallucinations 10/19/16 Yes MEDS Medications: Current Medications Medications (Trade) Dose Ordered Sig/Fannie Start Time Stop Time Status Last Admin Dose Admin Acyclovir (Zovirax) 400 mg [id number] 05/06/17 09:00 05/12/17 21:41 400 MG Albuterol Sulfate (Ventolin Neb Soln) 2.5 mg 1X ONCE 05/10/17 20:00 05/10/17 20:01 DC 05/10/17 19:54 2.5 MG Amiodarone HCl (Cordarone) 300 mg STK-MED ONCE 05/09/17 23:00 05/10/17 11:00 DC Amiodarone HCl 150 mg/Dextrose 103 ml @ 618 mls/hr 1X ONCE 05/09/17 14:00 05/09/17 14:09 DC 05/09/17 14:28 618 MLS/HR Amiodarone HCl 450 mg/Dextrose 259 ml @ 17.26 mls/ hr CONT PRN 05/10/17 04:00 05/11/17 05:43 17.26 MLS/HR Amiodarone HCl 900 mg/Dextrose 518 ml @ 0 mls/hr CONT PRN 05/10/17 03:45 UNV Atorvastatin Calcium (Lipitor) 40 mg DAILY 05/06/17 09:00 05/13/17 08:33 40 MG Atropine Sulfate 1 mg STK-MED ONCE 05/09/17 23:00 05/10/17 11:00 DC Calcium Gluconate (Calcium Gluconate) 1,000 mg 1X ONCE 05/09/17 14:00 05/09/17 14:01 DC 05/09/17 14:28 1,000 MG Ceftriaxone Sodium 1 gm/ Dextrose 50 ml @ 100 mls/hr Q24H 05/05/17 18:00 UNV Ceftriaxone Sodium (Rocephin) 1 gm Q24H 05/05/17 18:00 05/13/17 08:09 DC 05/12/17 17:46 1 GM Diazepam (Valium) 5 mg TID 05/05/17 21:00 05/13/17 08:34 5 MG Dobutamine HCl/ Dextrose 250 ml @ 0 mls/hr CONT PRN 05/10/17 21:15 05/12/17 05:01 5.756 MLS/HR Doxycycline Hyclate (Vibra-Tab) 100 mg BID 05/06/17 14:00 05/12/17 07:50 DC 05/11/17 21:01 100 MG Epinephrine HCl (EPINEPHrine SYRINGE) 3 mg STK-MED ONCE 05/09/17 23:00 05/10/17 11:00 DC Furosemide (Lasix) 40 mg DAILY 05/12/17 09:00 05/13/17 08:34 40 MG Info 1 each PRN DAILY PRN 05/09/17 13:45 05/12/17 13:06 1 EACH Levothyroxine Sodium (Synthroid) 75 mcg DAILYAC 05/06/17 07:30 05/13/17 08:37 75 MCG Lidocaine HCl (Lidocaine HCl 2% Abboject) 100 mg STK-MED ONCE 05/09/17 23:00 05/10/17 11:00 DC Lidocaine HCl/ Dextrose 500 ml @ 0 mls/hr CONT PRN 05/10/17 04:00 05/12/17 17:20 DC 05/12/17 05:40 15 MLS/HR Lidocaine/Sodium Bicarbonate (Buffered Lidocaine 1%) 3 ml 1X ONCE 05/10/17 13:45 05/10/17 13:57 DC 05/10/17 13:45 3 ML Magnesium Sulfate/ Dextrose (Magnesium Sulfate PREMIX 1GM) 2 gm STK-MED ONCE 05/05/17 12:00 05/12/17 17:24 DC Metoprolol Tartrate (Lopressor) 25 mg BID 05/05/17 21:00 05/13/17 08:34 25 MG Midazolam HCl (Versed) 2 mg PRN Q2HR PRN 05/10/17 02:30 Multi-Ingredient Mouthwash/Gargle (Magic Mouthwash) 10 ml PRN QID PRN 05/07/17 09:00 05/08/17 10:12 10 ML Nystatin 5 ml [id number] 05/07/17 13:00 05/13/17 08:33 5 ML Ondansetron HCl (Zofran Odt) 8 mg PRN Q12HRS PRN 05/05/17 18:30 05/11/17 11:52 8 MG Pantoprazole Sodium (Protonix) 40 mg DAILY 05/06/17 09:00 05/13/17 08:34 40 MG Potassium Chloride/Dextrose/ Sod Cl 1,000 ml @ 75 mls/hr [id number] 05/09/17 11:00 05/11/17 08:26 DC 05/10/17 17:58 75 MLS/HR Potassium Chloride/Sodium Chloride 1,000 ml @ 80 mls/hr [id number] 05/08/17 17:30 05/09/17 18:27 DC 05/09/17 05:49 80 MLS/HR Potassium Phosphate 13.6 mmol/Dextrose 104.5333 ml @ 52.267 m... ONCE ONCE 05/11/17 13:00 05/11/17 14:59 DC 05/11/17 13:24 52.267 MLS/HR Potassium Chloride (Klor-Con) 40 meq 1X ONCE 05/09/17 11:00 05/09/17 11:01 DC Procainamide HCl 500 mg/Dextrose 55 ml @ 110 mls/hr 1X ONCE 05/09/17 15:30 05/09/17 15:59 DC 05/09/17 15:49 110 MLS/HR Procainamide HCl 2000 mg/Dextrose 520 ml @ 0 mls/hr CONT PRN 05/09/17 15:45 UNV Sodium Acetate 120 meq/Potassium Chloride 70 meq/ Potassium Phosphate 25 mmol/ Magnesium Sulfate 22 meq/Calcium Gluconate 5 meq/ Multivitamins 10 ml/Chromium/ Copper/Manganese/ Seleni/Zn 1 ml/ Total Parenteral Nutrition/Amino Acids/Dextrose/ Fat Emulsion Intravenous 1,512 ml @ 63 mls/hr TPN CONT 05/12/17 22:00 05/13/17 21:59 05/12/17 22:50 63 MLS/HR Sodium Acetate 120 meq/Potassium Chloride 70 meq/ Potassium Phosphate 27.2 mmol/Magnesium Sulfate 22 meq/ Calcium Gluconate 5 meq/ Multivitamins 10 ml/Chromium/ Copper/Manganese/ Seleni/Zn 1 ml/ Total Parenteral Nutrition/Amino Acids/Dextrose/ Fat Emulsion Intravenous 1,512 ml @ 63 mls/hr TPN CONT 05/11/17 22:00 05/12/17 21:59 Cancel Sodium Acetate 90 meq/Potassium Chloride 70 meq/ Potassium Phosphate 20.4 mmol/Magnesium Sulfate 18 meq/ Calcium Gluconate 10 meq/ Multivitamins 10 ml/Chromium/ Copper/Manganese/ Seleni/Zn 1 ml/ Total Parenteral Nutrition/Amino Acids/Dextrose/ Fat Emulsion Intravenous 1,512 ml @ 63 mls/hr TPN CONT 05/10/17 22:00 05/11/17 21:59 DC 05/10/17 22:00 63 MLS/HR Sodium Bicarbonate 100 meq 1X ONCE 05/08/17 15:30 05/08/17 15:31 DC 05/08/17 16:52 100 MEQ Sodium Chloride 250 ml @ 250 mls/hr 1X ONCE 05/10/17 13:45 05/10/17 14:44 DC Sodium Chloride 90 meq/Potassium Acetate 70 meq/ Potassium Phosphate 18 mmol/ Magnesium Sulfate 12 meq/Calcium Gluconate 10 meq/ Multivitamins 10 ml/Chromium/ Copper/Manganese/ Seleni/Zn 1 ml/ Total Parenteral Nutrition/Amino Acids/Dextrose/ Fat Emulsion Intravenous 1,512 ml @ 63 mls/hr TPN CONT 05/09/17 22:00 05/10/17 21:59 DC 05/09/17 21:39 63 MLS/HR Sodium Chloride 90 meq/Potassium Chloride 50 meq/ Potassium Phosphate 13.6 mmol/Magnesium Sulfate 10 meq/ Calcium Gluconate 10 meq/ Multivitamins 10 ml/Chromium/ Copper/Manganese/ Seleni/Zn 1 ml/ Total Parenteral Nutrition/Amino Acids/Dextrose/ Fat Emulsion Intravenous 1,387.0013 ml @ 3.625 mls/hr TPN CONT 05/09/17 22:00 UNV Sodium Phosphate 20 mmol/Dextrose 256.6667 ml @ 64.167 m... 1X ONCE 05/09/17 17:45 05/09/17 21:44 DC 05/09/17 18:10 64.167 MLS/HR Sodium Phosphate 30 mmol/Dextrose 260 ml @ 65 mls/hr 1X ONCE 05/09/17 17:45 05/09/17 21:44 Cancel Tramadol HCl (Ultram) 50 mg PRN Q6HRS PRN 05/05/17 18:15 Vancomycin HCl 1 each 1X ONCE 05/07/17 19:00 05/07/17 19:01 Cancel Vancomycin HCl (Vanco Per Pharmacy) 1 each PRN DAILY PRN 05/05/17 18:00 05/06/17 13:10 DC 05/06/17 12:53 1 EACH Vancomycin HCl 1.75 gm/Dextrose 500 ml @ 250 mls/hr 1X ONCE 05/05/17 18:30 05/05/17 20:29 DC 05/05/17 19:21 250 MLS/HR Vancomycin HCl 1 gm/Dextrose 250 ml @ 250 mls/hr Q24H 05/06/17 19:30 05/06/17 19:30 DC Venlafaxine HCl (Effexor Xr) 75 mg DAILY 05/06/17 09:00 05/13/17 08:34 75 MG LAB Lab: Laboratory Tests Test 05/13/17 05:00 White Blood Count 5.2 x10^3/uL (4.0-11.0) Red Blood Count 2.72 x10^6/uL (3.50-5.40) Hemoglobin 9.3 g/dL (12.0-15.5) Hematocrit 27.1 % (36.0-47.0) Mean Corpuscular Volume 100 fL (79-100) Mean Corpuscular Hemoglobin 34 pg (25-35) Mean Corpuscular Hemoglobin Concent 34 g/dL (31-37) Red Cell Distribution Width 21.1 % (11.5-14.5) Platelet Count 69 x10^3/uL (140-400) Neutrophils (%) (Auto) 57 % (31-73) Lymphocytes (%) (Auto) 20 % (24-48) Monocytes (%) (Auto) 22 % (0-9) Eosinophils (%) (Auto) 0 % (0-3) Basophils (%) (Auto) 1 % (0-3) Neutrophils # (Auto) 2.9 x10^3uL (1.8-7.7) Lymphocytes # (Auto) 1.0 x10^3/uL (1.0-4.8) Monocytes # (Auto) 1.2 x10^3/uL (0.0-1.1) Eosinophils # (Auto) 0.0 x10^3/uL (0.0-0.7) Basophils # (Auto) 0.0 x10^3/uL (0.0-0.2) Sodium Level 133 mmol/L (136-145) Potassium Level 4.6 mmol/L (3.5-5.1) Chloride Level 99 mmol/L (98-107) Carbon Dioxide Level 29 mmol/L (21-32) Anion Gap 5 (6-14) Blood Urea Nitrogen 15 mg/dL (7-20) Creatinine 0.9 mg/dL (0.6-1.0) Estimated GFR (Cockcroft-Gault) 61.2 BUN/Creatinine Ratio 17 (6-20) Glucose Level 112 mg/dL (70-99) Calcium Level 7.9 mg/dL (8.5-10.1) Phosphorus Level 3.7 mg/dL (2.6-4.7) Magnesium Level 2.1 mg/dL (1.8-2.4) Total Bilirubin 0.4 mg/dL (0.2-1.0) Aspartate Amino Transf (AST/SGOT) 20 U/L (15-37) Alanine Aminotransferase (ALT/SGPT) 19 U/L (14-59) Alkaline Phosphatase 81 U/L (46-116) Total Protein 5.3 g/dL (6.4-8.2) Albumin 2.1 g/dL (3.4-5.0) Albumin/Globulin Ratio 0.7 (1.0-1.7) Nutrition Consultation Dietary Evaluation: Recommendations by RD: PPN/TPN Comments: Continue current TPN infusion: 225 g dextrose, 60 g AA, 20 g lipid Encouraged some PO intake to maintain gut health Can dc TPN once PO intake meeting > 75% est needs Expected Outcomes/Goals: TPN infusion initiated and meeting > 75% est needs within 24 - 48 hrs - met, ongoing Malnutrition Findings: Food and Nutrition Intake (Mod: <75% est energy req 7days Weight Status: Overweight APPL,ZACK Coon MD May 13, 2017 09:06
--- NOTE | 2017-05-13 10:41 | PDOC ---
PULMONARY PROGRESS NOTES Subjective PT S/P CODE FOR V TACH, HAD SHOCKED MULTIPLE TIMES OFF BIPAP/ON LASIX/DOBUTAMINE DOING BETTER Vitals Vital Signs Date Time Temp Pulse Resp B/P (MAP) Pulse Ox O2 Delivery O2 Flow Rate FiO2 05/13/17 10:00 69 18 107/64 (78) 97 Nasal Cannula 2.0 05/13/17 08:00 98.3 98.3 General: Alert, No acute distress Lungs: Other (decrease bases) Cardiovascular: S1, S2 Abdomen: Soft Neuro Exam: Alert Extremities: Other (1=EDEMA) Skin: Warm Labs Laboratory Tests Test 05/12/17 05:00 05/13/17 05:00 White Blood Count 3.5 x10^3/uL (4.0-11.0) 5.2 x10^3/uL (4.0-11.0) Red Blood Count 2.52 x10^6/uL (3.50-5.40) 2.72 x10^6/uL (3.50-5.40) Hemoglobin 8.6 g/dL (12.0-15.5) 9.3 g/dL (12.0-15.5) Hematocrit 25.2 % (36.0-47.0) 27.1 % (36.0-47.0) Mean Corpuscular Volume 100 fL (79-100) 100 fL (79-100) Mean Corpuscular Hemoglobin 34 pg (25-35) 34 pg (25-35) Mean Corpuscular Hemoglobin Concent 34 g/dL (31-37) 34 g/dL (31-37) Red Cell Distribution Width 21.1 % (11.5-14.5) 21.1 % (11.5-14.5) Platelet Count 41 x10^3/uL (140-400) 69 x10^3/uL (140-400) Neutrophils (%) (Auto) 55 % (31-73) 57 % (31-73) Lymphocytes (%) (Auto) 23 % (24-48) 20 % (24-48) Monocytes (%) (Auto) 22 % (0-9) 22 % (0-9) Eosinophils (%) (Auto) 0 % (0-3) 0 % (0-3) Basophils (%) (Auto) 0 % (0-3) 1 % (0-3) Neutrophils # (Auto) 1.9 x10^3uL (1.8-7.7) 2.9 x10^3uL (1.8-7.7) Lymphocytes # (Auto) 0.8 x10^3/uL (1.0-4.8) 1.0 x10^3/uL (1.0-4.8) Monocytes # (Auto) 0.8 x10^3/uL (0.0-1.1) 1.2 x10^3/uL (0.0-1.1) Eosinophils # (Auto) 0.0 x10^3/uL (0.0-0.7) 0.0 x10^3/uL (0.0-0.7) Basophils # (Auto) 0.0 x10^3/uL (0.0-0.2) 0.0 x10^3/uL (0.0-0.2) Sodium Level 134 mmol/L (136-145) 133 mmol/L (136-145) Potassium Level 4.6 mmol/L (3.5-5.1) 4.6 mmol/L (3.5-5.1) Chloride Level 101 mmol/L (98-107) 99 mmol/L (98-107) Carbon Dioxide Level 26 mmol/L (21-32) 29 mmol/L (21-32) Anion Gap 7 (6-14) 5 (6-14) Blood Urea Nitrogen 11 mg/dL (7-20) 15 mg/dL (7-20) Creatinine 0.8 mg/dL (0.6-1.0) 0.9 mg/dL (0.6-1.0) Estimated GFR (Cockcroft-Gault) 70.1 61.2 BUN/Creatinine Ratio 14 (6-20) 17 (6-20) Glucose Level 108 mg/dL (70-99) 112 mg/dL (70-99) Calcium Level 7.4 mg/dL (8.5-10.1) 7.9 mg/dL (8.5-10.1) Phosphorus Level 2.9 mg/dL (2.6-4.7) 3.7 mg/dL (2.6-4.7) Magnesium Level 2.2 mg/dL (1.8-2.4) 2.1 mg/dL (1.8-2.4) Total Bilirubin 0.4 mg/dL (0.2-1.0) 0.4 mg/dL (0.2-1.0) Aspartate Amino Transf (AST/SGOT) 25 U/L (15-37) 20 U/L (15-37) Alanine Aminotransferase (ALT/SGPT) 24 U/L (14-59) 19 U/L (14-59) Alkaline Phosphatase 82 U/L (46-116) 81 U/L (46-116) Total Protein 5.0 g/dL (6.4-8.2) 5.3 g/dL (6.4-8.2) Albumin 1.8 g/dL (3.4-5.0) 2.1 g/dL (3.4-5.0) Albumin/Globulin Ratio 0.6 (1.0-1.7) 0.7 (1.0-1.7) Laboratory Tests Test 05/13/17 05:00 White Blood Count 5.2 x10^3/uL (4.0-11.0) Red Blood Count 2.72 x10^6/uL (3.50-5.40) Hemoglobin 9.3 g/dL (12.0-15.5) Hematocrit 27.1 % (36.0-47.0) Mean Corpuscular Volume 100 fL (79-100) Mean Corpuscular Hemoglobin 34 pg (25-35) Mean Corpuscular Hemoglobin Concent 34 g/dL (31-37) Red Cell Distribution Width 21.1 % (11.5-14.5) Platelet Count 69 x10^3/uL (140-400) Neutrophils (%) (Auto) 57 % (31-73) Lymphocytes (%) (Auto) 20 % (24-48) Monocytes (%) (Auto) 22 % (0-9) Eosinophils (%) (Auto) 0 % (0-3) Basophils (%) (Auto) 1 % (0-3) Neutrophils # (Auto) 2.9 x10^3uL (1.8-7.7) Lymphocytes # (Auto) 1.0 x10^3/uL (1.0-4.8) Monocytes # (Auto) 1.2 x10^3/uL (0.0-1.1) Eosinophils # (Auto) 0.0 x10^3/uL (0.0-0.7) Basophils # (Auto) 0.0 x10^3/uL (0.0-0.2) Sodium Level 133 mmol/L (136-145) Potassium Level 4.6 mmol/L (3.5-5.1) Chloride Level 99 mmol/L (98-107) Carbon Dioxide Level 29 mmol/L (21-32) Anion Gap 5 (6-14) Blood Urea Nitrogen 15 mg/dL (7-20) Creatinine 0.9 mg/dL (0.6-1.0) Estimated GFR (Cockcroft-Gault) 61.2 BUN/Creatinine Ratio 17 (6-20) Glucose Level 112 mg/dL (70-99) Calcium Level 7.9 mg/dL (8.5-10.1) Phosphorus Level 3.7 mg/dL (2.6-4.7) Magnesium Level 2.1 mg/dL (1.8-2.4) Total Bilirubin 0.4 mg/dL (0.2-1.0) Aspartate Amino Transf (AST/SGOT) 20 U/L (15-37) Alanine Aminotransferase (ALT/SGPT) 19 U/L (14-59) Alkaline Phosphatase 81 U/L (46-116) Total Protein 5.3 g/dL (6.4-8.2) Albumin 2.1 g/dL (3.4-5.0) Albumin/Globulin Ratio 0.7 (1.0-1.7) Medications Active Scripts Medications Dose Route/Sig Max Daily Dose Days Date Category Levofloxacin 500 Mg Tablet 500 Mg PO DAILY 05/05/17 Reported Tramadol Hcl 50 Mg Tablet 50 Mg PO Q6H PRN 05/05/17 Reported Ondansetron Hcl 4 Mg Tablet 8 Mg PO BID PRN 05/05/17 Reported [place] 5-325 Tablet (Acetaminophen/Hydrocodone Bitart) 1 Each Tablet 1-2 Tab PO Q4HRS PRN 10/19/16 Reported Atorvastatin Calcium 40 Mg Tablet 1 Tab PO DAILY 10/18/15 Reported Metoprolol Tartrate 25 Mg Tablet 1 Tab PO BID 10/18/15 Reported Pantoprazole Sodium 40 Mg Tablet.dr 1 Tab PO DAILY 04/26/15 Reported Diazepam 5 Mg Tablet 5 Mg PO TID 03/07/15 Reported Venlafaxine Hcl Er (Venlafaxine Hcl) 75 Mg Cap.er.24h 75 Mg PO DAILY 03/07/15 Reported Synthroid (Levothyroxine Sodium) 75 Mcg Tablet 75 Mcg PO DAILYAC 03/07/15 Reported Impression . 1. Progressive dyspnea, multifactorial secondary to CHF, weakness from her recent chemotherapy and toxicities/ NEW CM EF 25 % 2. Stage 4 Colon cancer. 3. Leukopenia/ thrombocytopenia secondary to chemotherapy. 4. Thrombocytopenia.improving 5. Acute renal failure, improved 6. Urinary tract infection. 7. Protein malnutrition present upon admission. 8. CODE BLUE ,V- TACH PER DR ASHRAF 9. Mild interstitial edema Plan . CLINICALLY IMPROVING ON DOBUTAMINE/ LASIX F/U CXR NEEDED POSSIBILITY OF CATH IN FUTURE PER CARDIOLOGY BLOOD COUNTS IMPROVING FOLLOW [facility] INPUT SUPPORTIVE CARE D/W FAMILY NEEDS PT MG MCKENNA MD May 13, 2017 10:41
[2017-05-13] MEDS: ACYCLOVIR 200 MG CAPSULE. PO SCH ×3 (11:00→20:58)
[2017-05-13] MEDS: TPN PER PHARMACY MC PRN (11:24)
--- NOTE | 2017-05-13 11:24 | PDOC ---
PROGRESS NOTES Subjective Subjective HPI - Colon ca -s/p chemo 04/27/17. TOS - feels weak Objective Objective Vital Signs Date Time Temp Pulse Resp B/P (MAP) Pulse Ox O2 Delivery O2 Flow Rate FiO2 05/13/17 10:00 69 18 107/64 (78) 97 Nasal Cannula 2.0 05/13/17 08:00 98.3 98.3 Intake and Output 05/13/17 07:00 Intake Total 2270.98 ml Output Total 4015 ml Balance -1744.02 ml Intake Oral 370 ml IV Total 1900.98 ml Output Urine Total 3215 ml Stool Total 800 ml Physical Exam Heart: Normal S1, Normal S2 General: Alert, No acute distress HEENT: Atraumatic Lungs: Clear to auscultation Psych/Mental Status: Mental status NL Assessment Assessment Assessment/Plan 1. Colon ca -s/p chemo 04/27/17. No evidence of disease after surgery. No further chemo, I will cancel cycle 12. 2. Urinary tract infection. Appreciate ID management. 3. Neutropenia and thrombocytopenia from chemo, monitor cbc. WBC 5.2, plt 64. 4. had code on floor - was shocked 6 times and has had some brief torsades since being in ICU, not intubated and ok bp and feels ok. Management per Dr Fernando. 5. Progressive dyspnea, multifactorial secondary to CHF, weakness from her recent chemotherapy and toxicities/ NEW CM EF 25 % Comment Review of Relevant I have reviewed the following items armida (where applicable) has been applied. Labs Laboratory Tests Test 05/12/17 05:00 05/13/17 05:00 White Blood Count 3.5 x10^3/uL (4.0-11.0) 5.2 x10^3/uL (4.0-11.0) Red Blood Count 2.52 x10^6/uL (3.50-5.40) 2.72 x10^6/uL (3.50-5.40) Hemoglobin 8.6 g/dL (12.0-15.5) 9.3 g/dL (12.0-15.5) Hematocrit 25.2 % (36.0-47.0) 27.1 % (36.0-47.0) Mean Corpuscular Volume 100 fL (79-100) 100 fL (79-100) Mean Corpuscular Hemoglobin 34 pg (25-35) 34 pg (25-35) Mean Corpuscular Hemoglobin Concent 34 g/dL (31-37) 34 g/dL (31-37) Red Cell Distribution Width 21.1 % (11.5-14.5) 21.1 % (11.5-14.5) Platelet Count 41 x10^3/uL (140-400) 69 x10^3/uL (140-400) Neutrophils (%) (Auto) 55 % (31-73) 57 % (31-73) Lymphocytes (%) (Auto) 23 % (24-48) 20 % (24-48) Monocytes (%) (Auto) 22 % (0-9) 22 % (0-9) Eosinophils (%) (Auto) 0 % (0-3) 0 % (0-3) Basophils (%) (Auto) 0 % (0-3) 1 % (0-3) Neutrophils # (Auto) 1.9 x10^3uL (1.8-7.7) 2.9 x10^3uL (1.8-7.7) Lymphocytes # (Auto) 0.8 x10^3/uL (1.0-4.8) 1.0 x10^3/uL (1.0-4.8) Monocytes # (Auto) 0.8 x10^3/uL (0.0-1.1) 1.2 x10^3/uL (0.0-1.1) Eosinophils # (Auto) 0.0 x10^3/uL (0.0-0.7) 0.0 x10^3/uL (0.0-0.7) Basophils # (Auto) 0.0 x10^3/uL (0.0-0.2) 0.0 x10^3/uL (0.0-0.2) Sodium Level 134 mmol/L (136-145) 133 mmol/L (136-145) Potassium Level 4.6 mmol/L (3.5-5.1) 4.6 mmol/L (3.5-5.1) Chloride Level 101 mmol/L (98-107) 99 mmol/L (98-107) Carbon Dioxide Level 26 mmol/L (21-32) 29 mmol/L (21-32) Anion Gap 7 (6-14) 5 (6-14) Blood Urea Nitrogen 11 mg/dL (7-20) 15 mg/dL (7-20) Creatinine 0.8 mg/dL (0.6-1.0) 0.9 mg/dL (0.6-1.0) Estimated GFR (Cockcroft-Gault) 70.1 61.2 BUN/Creatinine Ratio 14 (6-20) 17 (6-20) Glucose Level 108 mg/dL (70-99) 112 mg/dL (70-99) Calcium Level 7.4 mg/dL (8.5-10.1) 7.9 mg/dL (8.5-10.1) Phosphorus Level 2.9 mg/dL (2.6-4.7) 3.7 mg/dL (2.6-4.7) Magnesium Level 2.2 mg/dL (1.8-2.4) 2.1 mg/dL (1.8-2.4) Total Bilirubin 0.4 mg/dL (0.2-1.0) 0.4 mg/dL (0.2-1.0) Aspartate Amino Transf (AST/SGOT) 25 U/L (15-37) 20 U/L (15-37) Alanine Aminotransferase (ALT/SGPT) 24 U/L (14-59) 19 U/L (14-59) Alkaline Phosphatase 82 U/L (46-116) 81 U/L (46-116) Total Protein 5.0 g/dL (6.4-8.2) 5.3 g/dL (6.4-8.2) Albumin 1.8 g/dL (3.4-5.0) 2.1 g/dL (3.4-5.0) Albumin/Globulin Ratio 0.6 (1.0-1.7) 0.7 (1.0-1.7) Laboratory Tests Test 05/13/17 05:00 White Blood Count 5.2 x10^3/uL (4.0-11.0) Red Blood Count 2.72 x10^6/uL (3.50-5.40) Hemoglobin 9.3 g/dL (12.0-15.5) Hematocrit 27.1 % (36.0-47.0) Mean Corpuscular Volume 100 fL (79-100) Mean Corpuscular Hemoglobin 34 pg (25-35) Mean Corpuscular Hemoglobin Concent 34 g/dL (31-37) Red Cell Distribution Width 21.1 % (11.5-14.5) Platelet Count 69 x10^3/uL (140-400) Neutrophils (%) (Auto) 57 % (31-73) Lymphocytes (%) (Auto) 20 % (24-48) Monocytes (%) (Auto) 22 % (0-9) Eosinophils (%) (Auto) 0 % (0-3) Basophils (%) (Auto) 1 % (0-3) Neutrophils # (Auto) 2.9 x10^3uL (1.8-7.7) Lymphocytes # (Auto) 1.0 x10^3/uL (1.0-4.8) Monocytes # (Auto) 1.2 x10^3/uL (0.0-1.1) Eosinophils # (Auto) 0.0 x10^3/uL (0.0-0.7) Basophils # (Auto) 0.0 x10^3/uL (0.0-0.2) Sodium Level 133 mmol/L (136-145) Potassium Level 4.6 mmol/L (3.5-5.1) Chloride Level 99 mmol/L (98-107) Carbon Dioxide Level 29 mmol/L (21-32) Anion Gap 5 (6-14) Blood Urea Nitrogen 15 mg/dL (7-20) Creatinine 0.9 mg/dL (0.6-1.0) Estimated GFR (Cockcroft-Gault) 61.2 BUN/Creatinine Ratio 17 (6-20) Glucose Level 112 mg/dL (70-99) Calcium Level 7.9 mg/dL (8.5-10.1) Phosphorus Level 3.7 mg/dL (2.6-4.7) Magnesium Level 2.1 mg/dL (1.8-2.4) Total Bilirubin 0.4 mg/dL (0.2-1.0) Aspartate Amino Transf (AST/SGOT) 20 U/L (15-37) Alanine Aminotransferase (ALT/SGPT) 19 U/L (14-59) Alkaline Phosphatase 81 U/L (46-116) Total Protein 5.3 g/dL (6.4-8.2) Albumin 2.1 g/dL (3.4-5.0) Albumin/Globulin Ratio 0.7 (1.0-1.7) Microbiology 05/06/17 Urine Culture - Final, Complete 05/06/17 Urine Culture Result 1 (MARINE) - Final, Complete Medications Current Medications Ceftriaxone Sodium 1 gm/ Dextrose 50 ml @ 100 mls/hr Q24H IV ; Start 05/05/17 at 18:00; Status UNV Vancomycin HCl (Vanco Per Pharmacy) 1 each PRN DAILY PRN MC SEE COMMENTS Last administered on 05/06/17 12:53; Start 05/05/17 at 18:00; Stop 05/06/17 at 13:10 ; Status DC Ceftriaxone Sodium (Rocephin) 1 gm Q24H IVP Last administered on 05/12/17 17: 46; Start 05/05/17 at 18:00; Stop 05/13/17 at 08:09; Status DC Sodium Chloride 1,000 ml @ 75 mls/hr [id number] IV Last administered on 04:20; Start 05/05/17 at 18:15; Stop 05/08/17 at 13:44; Status DC Atorvastatin Calcium (Lipitor) 40 mg DAILY PO Last administered on 05/13/17 08:33; Start 05/06/17 at 09:00 Diazepam (Valium) 5 mg TID PO Last administered on 05/13/17 08:34; Start 05/05/17 at 21:00 Levothyroxine Sodium (Synthroid) 75 mcg DAILYAC PO Last administered on 08:37; Start 05/06/17 at 07:30 Metoprolol Tartrate (Lopressor) 25 mg BID PO Last administered on 05/13/17 08 :34; Start 05/05/17 at 21:00 Pantoprazole Sodium (Protonix) 40 mg DAILY PO Last administered on 05/13/17 08:34; Start 05/06/17 at 09:00 Tramadol HCl (Ultram) 50 mg PRN Q6HRS PRN PO PAIN; Start 05/05/17 at 18:15 Ondansetron HCl (Zofran Odt) 8 mg PRN Q12HRS PRN PO NAUSEA/VOMITING Last administered on 05/11/17 11:52; Start 05/05/17 at 18:30 Venlafaxine HCl (Effexor Xr) 75 mg DAILY PO Last administered on 05/13/17 08: 34; Start 05/06/17 at 09:00 Vancomycin HCl 1.75 gm/Dextrose 500 ml @ 250 mls/hr 1X ONCE IV Last administered on 05/05/17 19:21; Start 05/05/17 at 18:30; Stop 05/05/17 at 20:29 ; Status DC Vancomycin HCl 1 gm/Dextrose 250 ml @ 250 mls/hr Q24H IV ; Start 05/06/17 at 19 :30; Stop 05/06/17 at 19:30; Status DC Vancomycin HCl 1 each 1X ONCE MC ; Start 05/07/17 at 19:00; Stop 05/07/17 at 19:01; Status Cancel Acyclovir (Zovirax) 400 mg [id number] PO Last administered on 05/13/17 11:00; Start 05/06/17 at 09:00 Doxycycline Hyclate (Vibra-Tab) 100 mg BID PO Last administered on 05/11/17 21:01; Start 05/06/17 at 14:00; Stop 05/12/17 at 07:50; Status DC Multi-Ingredient Mouthwash/Gargle (Magic Mouthwash) 10 ml PRN QID PRN PO MOUTH PAIN Last administered on 05/08/17 10:12; Start 05/07/17 at 09:00 Nystatin 5 ml [id number] Last administered on 05/13/17 08:33; Start at 13:00 Potassium Chloride/Dextrose/ Sod Cl 1,000 ml @ 75 mls/hr [id number] IV ; Start at 14:00; Stop 05/08/17 at 16:37; Status DC Potassium Chloride (Klor-Con) 40 meq 1X ONCE PO Last administered on 14:12; Start 05/08/17 at 14:00; Stop 05/08/17 at 14:01; Status DC Amiodarone HCl 900 mg/Dextrose 518 ml @ 34.53 mls/ hr CONT PRN IV SEE I/O RECORD Last administered on 05/09/17 14:28; Start 05/08/17 at 14:45; Stop at 14:29; Status DC Amiodarone HCl 900 mg/Dextrose 518 ml @ 0 mls/hr CONT PRN IV SEE I/O RECORD; Start 05/08/17 at 14:45; Status UNV Sodium Chloride 500 ml @ 500 mls/hr 1X ONCE IV Last administered on 15:30; Start 05/08/17 at 15:30; Stop 05/08/17 at 16:29; Status DC Sodium Bicarbonate 100 meq 1X ONCE IV Last administered on 05/08/17 16:52; Start 05/08/17 at 15:30; Stop 05/08/17 at 15:31; Status DC Magnesium Sulfate/ Dextrose 100 ml @ 100 mls/hr 1X ONCE IV Last administered on 05/08/17 16:00; Start 05/08/17 at 16:00; Stop 05/08/17 at 16:59; Status DC Magnesium Sulfate/ Dextrose 100 ml @ 100 mls/hr 1X ONCE IV Last administered on 05/08/17 16:00; Start 05/08/17 at 16:00; Stop 05/08/17 at 16:59; Status DC Potassium Chloride (Klor-Con) 40 meq [id number] PO ; Start 05/09/17 at 08:00; Stop 05/09/17 at 08:17; Status DC Potassium Chloride (Klor-Con) 40 meq 1X ONCE PO Last administered on 16:53; Start 05/08/17 at 17:00; Stop 05/08/17 at 17:01; Status DC Potassium Chloride/Sodium Chloride 1,000 ml @ 80 mls/hr [id number] IV Last administered on 05/09/17 05:49; Start 05/08/17 at 17:30; Stop 05/09/17 at 18 :27; Status DC Amiodarone HCl 150 mg/Dextrose 103 ml @ 618 mls/hr 1X ONCE IV Last administered on 05/09/17 07:22; Start 05/09/17 at 07:00; Stop 05/09/17 at 07 :09; Status DC Magnesium Sulfate/ Dextrose 50 ml @ 25 mls/hr 1X ONCE IV Last administered on 05/09/17 07:11; Start 05/09/17 at 07:00; Stop 05/09/17 at 08:59; Status DC Potassium Chloride 50 ml @ 25 mls/hr PRN Q2HRS PRN IV K-3.1 TO 3.5 Last administered on 05/09/17 11:44; Start 05/09/17 at 06:45; Stop 05/09/17 at 11 :44; Status DC Potassium Chloride 50 ml @ 25 mls/hr PRN Q2HRS PRN IV K 2.6 TO 3; Start at 06:45 Potassium Chloride 50 ml @ 25 mls/hr PRN Q2HRS PRN IV FOR K<2.6; Start at 08:00 Magnesium Sulfate/ Dextrose 100 ml @ 50 mls/hr PRN DAILY PRN IV MAG<1.8 Last administered on 05/11/17 09:59; Start 05/09/17 at 09:00 Potassium Chloride 50 ml @ 50 mls/hr Q1H IV ; Start 05/09/17 at 08:15; Stop at 10:14; Status Cancel Potassium Chloride 50 ml @ 50 mls/hr DAILY IV Last administered on 05/11/17 08:51; Start 05/10/17 at 09:00; Stop 05/11/17 at 09:59; Status DC Potassium Chloride 50 ml @ 50 mls/hr Q1H IV Last administered on 05/09/17 10: 00; Start 05/09/17 at 09:00; Stop 05/09/17 at 10:59; Status DC Potassium Chloride (Klor-Con) 40 meq 1X ONCE PO ; Start 05/09/17 at 11:00; Stop 05/09/17 at 11:01; Status DC Potassium Chloride/Dextrose/ Sod Cl 1,000 ml @ 75 mls/hr [id number] IV Last administered on 05/10/17 17:58; Start 05/09/17 at 11:00; Stop 05/11/17 at 08 :26; Status DC Calcium Gluconate (Calcium Gluconate) 1,000 mg 1X ONCE IVP Last administered on 05/09/17 14:28; Start 05/09/17 at 14:00; Stop 05/09/17 at 14:01; Status DC Info 1 each PRN DAILY PRN MC SEE COMMENTS Last administered on 05/12/17 13:06 ; Start 05/09/17 at 13:45 Amiodarone HCl 150 mg/Dextrose 103 ml @ 618 mls/hr 1X ONCE IV Last administered on 05/09/17 14:28; Start 05/09/17 at 14:00; Stop 05/09/17 at 14 :09; Status DC Amiodarone HCl (Cordarone) 400 mg BID PO Last administered on 05/13/17 08:34 ; Start 05/09/17 at 21:00 Sodium Chloride 90 meq/Potassium Chloride 50 meq/ Potassium Phosphate 13.6 mmol/ Magnesium Sulfate 10 meq/ Calcium Gluconate 10 meq/ Multivitamins 10 ml/Chromium / Copper/Manganese/ Seleni/Zn 1 ml/ Total Parenteral Nutrition/Amino Acids/ Dextrose/ Fat Emulsion Intravenous 1,387.0013 ml @ 3.625 mls/hr TPN CONT IV ; Start 05/09/17 at 22:00; Status UNV Sodium Chloride 90 meq/Potassium Acetate 70 meq/ Potassium Phosphate 18 mmol/ Magnesium Sulfate 12 meq/Calcium Gluconate 10 meq/ Multivitamins 10 ml/Chromium / Copper/Manganese/ Seleni/Zn 1 ml/ Total Parenteral Nutrition/Amino Acids/ Dextrose/ Fat Emulsion Intravenous 1,512 ml @ 63 mls/hr TPN CONT IV Last administered on 05/09/17 21:39; Start 05/09/17 at 22:00; Stop 05/10/17 at 21 :59; Status DC Magnesium Sulfate/ Dextrose 50 ml @ 25 mls/hr 1X ONCE IV ; Start 05/09/17 at 15:15; Stop 05/09/17 at 17:14; Status DC Procainamide HCl 2000 mg/Dextrose 520 ml @ 31.2 mls/hr CONT PRN IV SEE I/O RECORD Last administered on 05/11/17 21:55; Start 05/09/17 at 16:00; Stop at 11:28; Status DC Procainamide HCl 500 mg/Dextrose 55 ml @ 110 mls/hr 1X ONCE IV Last administered on 05/09/17 15:49; Start 05/09/17 at 15:30; Stop 05/09/17 at 15 :59; Status DC Procainamide HCl 2000 mg/Dextrose 520 ml @ 0 mls/hr CONT PRN IV SEE I/O RECORD ; Start 05/09/17 at 15:45; Status UNV Sodium Phosphate 30 mmol/Dextrose 260 ml @ 65 mls/hr 1X ONCE IV ; Start 05/09 at 17:45; Stop 05/09/17 at 21:44; Status Cancel Sodium Phosphate 20 mmol/Dextrose 256.6667 ml @ 64.167 m... 1X ONCE IV Last administered on 05/09/17 18:10; Start 05/09/17 at 17:45; Stop 05/09/17 at 21 :44; Status DC Magnesium Sulfate/ Dextrose 100 ml @ 100 mls/hr 1X ONCE IV Last administered on 05/10/17 01:48; Start 05/10/17 at 02:00; Stop 05/10/17 at 02:59; Status DC Midazolam HCl (Versed) 1 mg PRN Q2HR PRN IV SEDATION; Start 05/10/17 at 02:30 Midazolam HCl (Versed) 2 mg PRN Q2HR PRN IV SEDATION; Start 05/10/17 at 02:30 Amiodarone HCl 900 mg/Dextrose 518 ml @ 0 mls/hr CONT PRN IV SEE I/O RECORD; Start 05/10/17 at 03:45; Status UNV Amiodarone HCl 450 mg/Dextrose 259 ml @ 17.26 mls/ hr CONT PRN IV SEE I/O RECORD Last administered on 05/11/17 05:43; Start 05/10/17 at 04:00 Lidocaine HCl/ Dextrose 500 ml @ 0 mls/hr CONT PRN IV SEE I/O RECORD Last administered on 05/12/17 05:40; Start 05/10/17 at 04:00; Stop 05/12/17 at 17 :20; Status DC Lidocaine HCl (Lidocaine HCl 2% Abboject) 100 mg 1X ONCE IV Last administered on 05/10/17 04:13; Start 05/10/17 at 04:30; Stop 05/10/17 at 04:31; Status DC Amiodarone HCl (Cordarone) 300 mg STK-MED ONCE .ROUTE ; Start 05/09/17 at 23:00 ; Stop 05/10/17 at 11:00; Status DC Atropine Sulfate 1 mg STK-MED ONCE .ROUTE ; Start 05/09/17 at 23:00; Stop at 11:00; Status DC Epinephrine HCl (EPINEPHrine SYRINGE) 3 mg STK-MED ONCE .ROUTE ; Start at 23:00; Stop 05/10/17 at 11:00; Status DC Lidocaine HCl (Lidocaine HCl 2% Abboject) 100 mg STK-MED ONCE .ROUTE ; Start at 23:00; Stop 05/10/17 at 11:00; Status DC Magnesium Sulfate/ Dextrose (Magnesium Sulfate PREMIX 1GM) 2 gm STK-MED ONCE IV ; Start 05/09/17 at 23:00; Stop 05/10/17 at 11:00; Status DC Potassium Phosphate 13.6 mmol/Dextrose 104.5333 ml @ 52.267 m... ONCE ONCE IV Last administered on 05/10/17 15:54; Start 05/10/17 at 14:00; Stop at 15:59; Status DC Sodium Acetate 90 meq/Potassium Chloride 70 meq/ Potassium Phosphate 20.4 mmol/ Magnesium Sulfate 18 meq/ Calcium Gluconate 10 meq/ Multivitamins 10 ml/Chromium / Copper/Manganese/ Seleni/Zn 1 ml/ Total Parenteral Nutrition/Amino Acids/ Dextrose/ Fat Emulsion Intravenous 1,512 ml @ 63 mls/hr TPN CONT IV Last administered on 05/10/17 22:00; Start 05/10/17 at 22:00; Stop 05/11/17 at 21 :59; Status DC Lidocaine/Sodium Bicarbonate (Buffered Lidocaine 1%) 20 ml STK-MED ONCE IJ ; Start 05/10/17 at 13:45; Stop 05/10/17 at 13:46; Status DC Lidocaine/Sodium Bicarbonate (Buffered Lidocaine 1%) 3 ml 1X ONCE IJ Last administered on 05/10/17 13:45; Start 05/10/17 at 13:45; Stop 05/10/17 at 13 :57; Status DC Sodium Chloride 250 ml @ 250 mls/hr 1X ONCE IV ; Start 05/10/17 at 13:45; Stop 05/10/17 at 14:44; Status DC Albuterol Sulfate (Ventolin Neb Soln) 2.5 mg 1X ONCE NEB Last administered on 05/10/17 19:54; Start 05/10/17 at 20:00; Stop 05/10/17 at 20:01; Status DC Furosemide (Lasix) 40 mg 1X ONCE IVP Last administered on 05/10/17 21:22; Start 05/10/17 at 21:30; Stop 05/10/17 at 21:31; Status DC Dobutamine HCl/ Dextrose 250 ml @ 0 mls/hr CONT PRN IV SEE I/O RECORD Last administered on 05/12/17 05:01; Start 05/10/17 at 21:15 Sodium Acetate 120 meq/Potassium Chloride 70 meq/ Potassium Phosphate 27.2 mmol/ Magnesium Sulfate 22 meq/ Calcium Gluconate 5 meq/ Multivitamins 10 ml/Chromium / Copper/Manganese/ Seleni/Zn 1 ml/ Total Parenteral Nutrition/Amino Acids/ Dextrose/ Fat Emulsion Intravenous 1,512 ml @ 63 mls/hr TPN CONT IV ; Start 05/11/17 at 22:00; Stop 05/12/17 at 21:59; Status Cancel Potassium Phosphate 13.6 mmol/Dextrose 104.5333 ml @ 52.267 m... ONCE ONCE IV Last administered on 05/11/17 13:24; Start 05/11/17 at 13:00; Stop at 14:59; Status DC Sodium Acetate 120 meq/Potassium Chloride 70 meq/ Potassium Phosphate 25 mmol/ Magnesium Sulfate 22 meq/Calcium Gluconate 5 meq/ Multivitamins 10 ml/Chromium/ Copper/Manganese/ Seleni/Zn 1 ml/ Total Parenteral Nutrition/Amino Acids/ Dextrose/ Fat Emulsion Intravenous 1,512 ml @ 63 mls/hr TPN CONT IV Last administered on 05/11/17 21:56; Start 05/11/17 at 22:00; Stop 05/12/17 at 21 :59; Status DC Furosemide (Lasix) 40 mg DAILY IVP Last administered on 05/13/17 08:34; Start 05/12/17 at 09:00 Sodium Acetate 120 meq/Potassium Chloride 70 meq/ Potassium Phosphate 25 mmol/ Magnesium Sulfate 22 meq/Calcium Gluconate 5 meq/ Multivitamins 10 ml/Chromium/ Copper/Manganese/ Seleni/Zn 1 ml/ Total Parenteral Nutrition/Amino Acids/ Dextrose/ Fat Emulsion Intravenous 1,512 ml @ 63 mls/hr TPN CONT IV Last administered on 05/12/17 22:50; Start 05/12/17 at 22:00; Stop 05/13/17 at 21 :59 Magnesium Sulfate/ Dextrose (Magnesium Sulfate PREMIX 1GM) 2 gm STK-MED ONCE IV ; Start 05/05/17 at 12:00; Stop 05/12/17 at 17:24; Status DC Sodium Acetate 120 meq/Potassium Chloride 70 meq/ Potassium Phosphate 25 mmol/ Magnesium Sulfate 22 meq/Calcium Gluconate 5 meq/ Multivitamins 10 ml/Chromium/ Copper/Manganese/ Seleni/Zn 1 ml/ Sodium Chloride 40 meq/Total Parenteral Nutrition/Amino Acids/Dextrose/ Fat Emulsion Intravenous 1,512 ml @ 63 mls/hr TPN CONT IV ; Start 05/13/17 at 22:00; Stop 05/14/17 at 21:59 Active Scripts Active Reported Levofloxacin 500 Mg Tablet 500 Mg PO DAILY Tramadol Hcl 50 Mg Tablet 50 Mg PO Q6H PRN Ondansetron Hcl 4 Mg Tablet 8 Mg PO BID PRN Kelley 5-325 Tablet (Acetaminophen/Hydrocodone Bitart) 1 Each Tablet 1-2 Tab PO Q4HRS PRN Atorvastatin Calcium 40 Mg Tablet 1 Tab PO DAILY Metoprolol Tartrate 25 Mg Tablet 1 Tab PO BID Pantoprazole Sodium 40 Mg Tablet.dr 1 Tab PO DAILY Diazepam 5 Mg Tablet 5 Mg PO TID Venlafaxine Hcl Er (Venlafaxine Hcl) 75 Mg Cap.er.24h 75 Mg PO DAILY Synthroid (Levothyroxine Sodium) 75 Mcg Tablet 75 Mcg PO DAILYAC Vitals/I & O Vital Sign - Last 24 Hours 05/12/17 05/12/17 05/12/17 05/12/17 12:00 12:00 13:00 14:00 Temp 98.5 98.5 Pulse 62 63 64 Resp 26 21 21 B/P (MAP) 98/55 (69) 106/59 (75) 107/66 (80) Pulse Ox 93 93 93 O2 Delivery Room Air Room Air Room Air Room Air 05/12/17 05/12/17 05/12/17 05/12/17 15:00 16:00 16:00 17:00 Temp 98.5 98.5 Pulse 66 70 65 Resp 22 17 18 B/P (MAP) 114/54 (74) 109/59 (76) 113/62 (79) Pulse Ox 92 91 91 O2 Delivery Room Air Room Air Room Air Room Air 05/12/17 05/12/17 05/12/17 05/12/17 18:00 19:00 19:59 20:00 Temp 98.4 98.4 Pulse 70 71 71 Resp 24 22 21 B/P (MAP) 114/69 (84) 114/64 (81) 115/66 (82) Pulse Ox 93 93 91 O2 Delivery Room Air Room Air Room Air Room Air 05/12/17 05/12/17 05/12/17 05/12/17 21:00 21:41 22:00 23:00 Pulse 80 79 73 73 Resp 24 27 B/P (MAP) 114/64 115/66 121/70 (87) 124/69 (87) Pulse Ox 93 91 O2 Delivery Room Air Room Air 05/13/17 05/13/17 05/13/17 05/13/17 00:00 00:07 01:00 02:00 Temp 98.4 98.4 Pulse 76 73 73 Resp 21 20 19 B/P (MAP) 115/64 (81) 123/69 (87) 128/68 (88) Pulse Ox 94 92 92 O2 Delivery Room Air Room Air Room Air Room Air 05/13/17 05/13/17 05/13/17 05/13/17 03:00 04:00 04:05 05:00 Temp 98.5 98.5 Pulse 74 75 71 Resp 19 20 19 B/P (MAP) 120/62 (81) 126/68 (87) 105/62 (76) Pulse Ox 92 91 92 O2 Delivery Room Air Room Air Room Air Room Air 05/13/17 05/13/17 05/13/17 05/13/17 06:00 07:00 08:00 08:34 Temp 98.3 98.3 Pulse 68 77 70 64 Resp 19 19 19 B/P (MAP) 132/65 (87) 121/66 (84) 136/74 (94) 136/74 Pulse Ox 92 90 95 O2 Delivery Room Air Room Air Nasal Cannula O2 Flow Rate 2.0 05/13/17 05/13/17 05/13/17 08:34 09:00 10:00 Pulse 64 69 69 Resp 20 18 B/P (MAP) 136/74 136/80 (98) 107/64 (78) Pulse Ox 97 97 O2 Delivery Nasal Cannula Nasal Cannula O2 Flow Rate 2.0 2.0 Intake and Output 05/12/17 05/12/17 05/13/17 15:00 23:00 07:00 Intake Total 143.1 ml 1151.88 ml 976 ml Output Total 2615 ml 600 ml 800 ml Balance -2471.9 ml 551.88 ml 176 ml Nutrition Consultation Dietary Evaluation: Recommendations by RD: PPN/TPN Comments: Continue current TPN infusion: 225 g dextrose, 60 g AA, 20 g lipid Encouraged some PO intake to maintain gut health Can dc TPN once PO intake meeting > 75% est needs Expected Outcomes/Goals: TPN infusion initiated and meeting > 75% est needs within 24 - 48 hrs - met, ongoing Malnutrition Findings: Food and Nutrition Intake (Mod: <75% est energy req 7days Weight Status: Overweight DANIEL MORALEZ MD May 13, 2017 11:24
--- NOTE | 2017-05-13 16:26 | PDOC ---
PROGRESS NOTES Subjective Subjective Patient is alert and responsive today. No new complaints. She continues to be in sinus rhythm. Objective Objective Vital Signs Date Time Temp Pulse Resp B/P (MAP) Pulse Ox O2 Delivery O2 Flow Rate FiO2 05/13/17 16:02 98.4 75 20 84/60 (68) 96 Nasal Cannula 2.0 98.4 Intake and Output 05/14/17 07:00 Output Total 775 ml Balance -775 ml Output Urine Total 775 ml Physical Exam Physical Exam No significant changes in cardiac exam Assessment Assessment I have discussed with the patient as well as the family the situation options and risks as well as her prognosis depending on the disease. At this point it was decided to proceed with a heart catheterization tomorrow. We will set it up for tomorrow. Comment Review of Relevant I have reviewed the following items armida (where applicable) has been applied. Labs Laboratory Tests Test 05/12/17 05:00 05/13/17 05:00 White Blood Count 3.5 x10^3/uL (4.0-11.0) 5.2 x10^3/uL (4.0-11.0) Red Blood Count 2.52 x10^6/uL (3.50-5.40) 2.72 x10^6/uL (3.50-5.40) Hemoglobin 8.6 g/dL (12.0-15.5) 9.3 g/dL (12.0-15.5) Hematocrit 25.2 % (36.0-47.0) 27.1 % (36.0-47.0) Mean Corpuscular Volume 100 fL (79-100) 100 fL (79-100) Mean Corpuscular Hemoglobin 34 pg (25-35) 34 pg (25-35) Mean Corpuscular Hemoglobin Concent 34 g/dL (31-37) 34 g/dL (31-37) Red Cell Distribution Width 21.1 % (11.5-14.5) 21.1 % (11.5-14.5) Platelet Count 41 x10^3/uL (140-400) 69 x10^3/uL (140-400) Neutrophils (%) (Auto) 55 % (31-73) 57 % (31-73) Lymphocytes (%) (Auto) 23 % (24-48) 20 % (24-48) Monocytes (%) (Auto) 22 % (0-9) 22 % (0-9) Eosinophils (%) (Auto) 0 % (0-3) 0 % (0-3) Basophils (%) (Auto) 0 % (0-3) 1 % (0-3) Neutrophils # (Auto) 1.9 x10^3uL (1.8-7.7) 2.9 x10^3uL (1.8-7.7) Lymphocytes # (Auto) 0.8 x10^3/uL (1.0-4.8) 1.0 x10^3/uL (1.0-4.8) Monocytes # (Auto) 0.8 x10^3/uL (0.0-1.1) 1.2 x10^3/uL (0.0-1.1) Eosinophils # (Auto) 0.0 x10^3/uL (0.0-0.7) 0.0 x10^3/uL (0.0-0.7) Basophils # (Auto) 0.0 x10^3/uL (0.0-0.2) 0.0 x10^3/uL (0.0-0.2) Sodium Level 134 mmol/L (136-145) 133 mmol/L (136-145) Potassium Level 4.6 mmol/L (3.5-5.1) 4.6 mmol/L (3.5-5.1) Chloride Level 101 mmol/L (98-107) 99 mmol/L (98-107) Carbon Dioxide Level 26 mmol/L (21-32) 29 mmol/L (21-32) Anion Gap 7 (6-14) 5 (6-14) Blood Urea Nitrogen 11 mg/dL (7-20) 15 mg/dL (7-20) Creatinine 0.8 mg/dL (0.6-1.0) 0.9 mg/dL (0.6-1.0) Estimated GFR (Cockcroft-Gault) 70.1 61.2 BUN/Creatinine Ratio 14 (6-20) 17 (6-20) Glucose Level 108 mg/dL (70-99) 112 mg/dL (70-99) Calcium Level 7.4 mg/dL (8.5-10.1) 7.9 mg/dL (8.5-10.1) Phosphorus Level 2.9 mg/dL (2.6-4.7) 3.7 mg/dL (2.6-4.7) Magnesium Level 2.2 mg/dL (1.8-2.4) 2.1 mg/dL (1.8-2.4) Total Bilirubin 0.4 mg/dL (0.2-1.0) 0.4 mg/dL (0.2-1.0) Aspartate Amino Transf (AST/SGOT) 25 U/L (15-37) 20 U/L (15-37) Alanine Aminotransferase (ALT/SGPT) 24 U/L (14-59) 19 U/L (14-59) Alkaline Phosphatase 82 U/L (46-116) 81 U/L (46-116) Total Protein 5.0 g/dL (6.4-8.2) 5.3 g/dL (6.4-8.2) Albumin 1.8 g/dL (3.4-5.0) 2.1 g/dL (3.4-5.0) Albumin/Globulin Ratio 0.6 (1.0-1.7) 0.7 (1.0-1.7) Laboratory Tests Test 05/13/17 05:00 White Blood Count 5.2 x10^3/uL (4.0-11.0) Red Blood Count 2.72 x10^6/uL (3.50-5.40) Hemoglobin 9.3 g/dL (12.0-15.5) Hematocrit 27.1 % (36.0-47.0) Mean Corpuscular Volume 100 fL (79-100) Mean Corpuscular Hemoglobin 34 pg (25-35) Mean Corpuscular Hemoglobin Concent 34 g/dL (31-37) Red Cell Distribution Width 21.1 % (11.5-14.5) Platelet Count 69 x10^3/uL (140-400) Neutrophils (%) (Auto) 57 % (31-73) Lymphocytes (%) (Auto) 20 % (24-48) Monocytes (%) (Auto) 22 % (0-9) Eosinophils (%) (Auto) 0 % (0-3) Basophils (%) (Auto) 1 % (0-3) Neutrophils # (Auto) 2.9 x10^3uL (1.8-7.7) Lymphocytes # (Auto) 1.0 x10^3/uL (1.0-4.8) Monocytes # (Auto) 1.2 x10^3/uL (0.0-1.1) Eosinophils # (Auto) 0.0 x10^3/uL (0.0-0.7) Basophils # (Auto) 0.0 x10^3/uL (0.0-0.2) Sodium Level 133 mmol/L (136-145) Potassium Level 4.6 mmol/L (3.5-5.1) Chloride Level 99 mmol/L (98-107) Carbon Dioxide Level 29 mmol/L (21-32) Anion Gap 5 (6-14) Blood Urea Nitrogen 15 mg/dL (7-20) Creatinine 0.9 mg/dL (0.6-1.0) Estimated GFR (Cockcroft-Gault) 61.2 BUN/Creatinine Ratio 17 (6-20) Glucose Level 112 mg/dL (70-99) Calcium Level 7.9 mg/dL (8.5-10.1) Phosphorus Level 3.7 mg/dL (2.6-4.7) Magnesium Level 2.1 mg/dL (1.8-2.4) Total Bilirubin 0.4 mg/dL (0.2-1.0) Aspartate Amino Transf (AST/SGOT) 20 U/L (15-37) Alanine Aminotransferase (ALT/SGPT) 19 U/L (14-59) Alkaline Phosphatase 81 U/L (46-116) Total Protein 5.3 g/dL (6.4-8.2) Albumin 2.1 g/dL (3.4-5.0) Albumin/Globulin Ratio 0.7 (1.0-1.7) Microbiology 05/06/17 Urine Culture - Final, Complete 05/06/17 Urine Culture Result 1 (MARINE) - Final, Complete Medications Current Medications Ceftriaxone Sodium 1 gm/ Dextrose 50 ml @ 100 mls/hr Q24H IV ; Start 05/05/17 at 18:00; Status UNV Vancomycin HCl (Vanco Per Pharmacy) 1 each PRN DAILY PRN MC SEE COMMENTS Last administered on 05/06/17t 12:53; Start 05/05/17 at 18:00; Stop 05/06/17 at 13:10 ; Status DC Ceftriaxone Sodium (Rocephin) 1 gm Q24H IVP Last administered on 05/12/17 17: 46; Start 05/05/17 at 18:00; Stop 05/13/17 at 08:09; Status DC Sodium Chloride 1,000 ml @ 75 mls/hr [id number] IV Last administered on 04:20; Start 05/05/17 at 18:15; Stop 05/08/17 at 13:44; Status DC Atorvastatin Calcium (Lipitor) 40 mg DAILY PO Last administered on 05/13/17 08:33; Start 05/06/17 at 09:00 Diazepam (Valium) 5 mg TID PO Last administered on 05/13/17 15:20; Start 05/05/17 at 21:00 Levothyroxine Sodium (Synthroid) 75 mcg DAILYAC PO Last administered on 08:37; Start 05/06/17 at 07:30 Metoprolol Tartrate (Lopressor) 25 mg BID PO Last administered on 05/13/17 08 :34; Start 05/05/17 at 21:00 Pantoprazole Sodium (Protonix) 40 mg DAILY PO Last administered on 05/13/17 08:34; Start 05/06/17 at 09:00 Tramadol HCl (Ultram) 50 mg PRN Q6HRS PRN PO PAIN; Start 05/05/17 at 18:15 Ondansetron HCl (Zofran Odt) 8 mg PRN Q12HRS PRN PO NAUSEA/VOMITING Last administered on 05/11/17 11:52; Start 05/05/17 at 18:30 Venlafaxine HCl (Effexor Xr) 75 mg DAILY PO Last administered on 05/13/17 08: 34; Start 05/06/17 at 09:00 Vancomycin HCl 1.75 gm/Dextrose 500 ml @ 250 mls/hr 1X ONCE IV Last administered on 05/05/17 19:21; Start 05/05/17 at 18:30; Stop 05/05/17 at 20:29 ; Status DC Vancomycin HCl 1 gm/Dextrose 250 ml @ 250 mls/hr Q24H IV ; Start 05/06/17 at 19 :30; Stop 05/06/17 at 19:30; Status DC Vancomycin HCl 1 each 1X ONCE MC ; Start 05/07/17 at 19:00; Stop 05/07/17 at 19:01; Status Cancel Acyclovir (Zovirax) 400 mg [id number] PO Last administered on 05/13/17 15:20; Start 05/06/17 at 09:00 Doxycycline Hyclate (Vibra-Tab) 100 mg BID PO Last administered on 05/11/17 21:01; Start 05/06/17 at 14:00; Stop 05/12/17 at 07:50; Status DC Multi-Ingredient Mouthwash/Gargle (Magic Mouthwash) 10 ml PRN QID PRN PO MOUTH PAIN Last administered on 05/08/17 10:12; Start 05/07/17 at 09:00 Nystatin 5 ml [id number] Last administered on 05/13/17 15:20; Start at 13:00 Potassium Chloride/Dextrose/ Sod Cl 1,000 ml @ 75 mls/hr [id number] IV ; Start at 14:00; Stop 05/08/17 at 16:37; Status DC Potassium Chloride (Klor-Con) 40 meq 1X ONCE PO Last administered on 14:12; Start 05/08/17 at 14:00; Stop 05/08/17 at 14:01; Status DC Amiodarone HCl 900 mg/Dextrose 518 ml @ 34.53 mls/ hr CONT PRN IV SEE I/O RECORD Last administered on 05/09/17 14:28; Start 05/08/17 at 14:45; Stop at 14:29; Status DC Amiodarone HCl 900 mg/Dextrose 518 ml @ 0 mls/hr CONT PRN IV SEE I/O RECORD; Start 05/08/17 at 14:45; Status UNV Sodium Chloride 500 ml @ 500 mls/hr 1X ONCE IV Last administered on 15:30; Start 05/08/17 at 15:30; Stop 05/08/17 at 16:29; Status DC Sodium Bicarbonate 100 meq 1X ONCE IV Last administered on 05/08/17 16:52; Start 05/08/17 at 15:30; Stop 05/08/17 at 15:31; Status DC Magnesium Sulfate/ Dextrose 100 ml @ 100 mls/hr 1X ONCE IV Last administered on 05/08/17 16:00; Start 05/08/17 at 16:00; Stop 05/08/17 at 16:59; Status DC Magnesium Sulfate/ Dextrose 100 ml @ 100 mls/hr 1X ONCE IV Last administered on 05/08/17 16:00; Start 05/08/17 at 16:00; Stop 05/08/17 at 16:59; Status DC Potassium Chloride (Klor-Con) 40 meq [id number] PO ; Start 05/09/17 at 08:00; Stop 05/09/17 at 08:17; Status DC Potassium Chloride (Klor-Con) 40 meq 1X ONCE PO Last administered on 16:53; Start 05/08/17 at 17:00; Stop 05/08/17 at 17:01; Status DC Potassium Chloride/Sodium Chloride 1,000 ml @ 80 mls/hr [id number] IV Last administered on 05/09/17 05:49; Start 05/08/17 at 17:30; Stop 05/09/17 at 18 :27; Status DC Amiodarone HCl 150 mg/Dextrose 103 ml @ 618 mls/hr 1X ONCE IV Last administered on 05/09/17 07:22; Start 05/09/17 at 07:00; Stop 05/09/17 at 07 :09; Status DC Magnesium Sulfate/ Dextrose 50 ml @ 25 mls/hr 1X ONCE IV Last administered on 05/09/17 07:11; Start 05/09/17 at 07:00; Stop 05/09/17 at 08:59; Status DC Potassium Chloride 50 ml @ 25 mls/hr PRN Q2HRS PRN IV K-3.1 TO 3.5 Last administered on 05/09/17 11:44; Start 05/09/17 at 06:45; Stop 05/09/17 at 11 :44; Status DC Potassium Chloride 50 ml @ 25 mls/hr PRN Q2HRS PRN IV K 2.6 TO 3; Start at 06:45 Potassium Chloride 50 ml @ 25 mls/hr PRN Q2HRS PRN IV FOR K<2.6; Start at 08:00 Magnesium Sulfate/ Dextrose 100 ml @ 50 mls/hr PRN DAILY PRN IV MAG<1.8 Last administered on 05/11/17 09:59; Start 05/09/17 at 09:00 Potassium Chloride 50 ml @ 50 mls/hr Q1H IV ; Start 05/09/17 at 08:15; Stop at 10:14; Status Cancel Potassium Chloride 50 ml @ 50 mls/hr DAILY IV Last administered on 05/11/17 08:51; Start 05/10/17 at 09:00; Stop 05/11/17 at 09:59; Status DC Potassium Chloride 50 ml @ 50 mls/hr Q1H IV Last administered on 05/09/17 10: 00; Start 05/09/17 at 09:00; Stop 05/09/17 at 10:59; Status DC Potassium Chloride (Klor-Con) 40 meq 1X ONCE PO ; Start 05/09/17 at 11:00; Stop 05/09/17 at 11:01; Status DC Potassium Chloride/Dextrose/ Sod Cl 1,000 ml @ 75 mls/hr [id number] IV Last administered on 05/10/17 17:58; Start 05/09/17 at 11:00; Stop 05/11/17 at 08 :26; Status DC Calcium Gluconate (Calcium Gluconate) 1,000 mg 1X ONCE IVP Last administered on 05/09/17 14:28; Start 05/09/17 at 14:00; Stop 05/09/17 at 14:01; Status DC Info 1 each PRN DAILY PRN MC SEE COMMENTS Last administered on 05/13/17 11:24 ; Start 05/09/17 at 13:45 Amiodarone HCl 150 mg/Dextrose 103 ml @ 618 mls/hr 1X ONCE IV Last administered on 05/09/17 14:28; Start 05/09/17 at 14:00; Stop 05/09/17 at 14 :09; Status DC Amiodarone HCl (Cordarone) 400 mg BID PO Last administered on 05/13/17 08:34 ; Start 05/09/17 at 21:00 Sodium Chloride 90 meq/Potassium Chloride 50 meq/ Potassium Phosphate 13.6 mmol/ Magnesium Sulfate 10 meq/ Calcium Gluconate 10 meq/ Multivitamins 10 ml/Chromium / Copper/Manganese/ Seleni/Zn 1 ml/ Total Parenteral Nutrition/Amino Acids/ Dextrose/ Fat Emulsion Intravenous 1,387.0013 ml @ 3.625 mls/hr TPN CONT IV ; Start 05/09/17 at 22:00; Status UNV Sodium Chloride 90 meq/Potassium Acetate 70 meq/ Potassium Phosphate 18 mmol/ Magnesium Sulfate 12 meq/Calcium Gluconate 10 meq/ Multivitamins 10 ml/Chromium / Copper/Manganese/ Seleni/Zn 1 ml/ Total Parenteral Nutrition/Amino Acids/ Dextrose/ Fat Emulsion Intravenous 1,512 ml @ 63 mls/hr TPN CONT IV Last administered on 05/09/17 21:39; Start 05/09/17 at 22:00; Stop 05/10/17 at 21 :59; Status DC Magnesium Sulfate/ Dextrose 50 ml @ 25 mls/hr 1X ONCE IV ; Start 05/09/17 at 15:15; Stop 05/09/17 at 17:14; Status DC Procainamide HCl 2000 mg/Dextrose 520 ml @ 31.2 mls/hr CONT PRN IV SEE I/O RECORD Last administered on 05/11/17 21:55; Start 05/09/17 at 16:00; Stop at 11:28; Status DC Procainamide HCl 500 mg/Dextrose 55 ml @ 110 mls/hr 1X ONCE IV Last administered on 05/09/17 15:49; Start 05/09/17 at 15:30; Stop 05/09/17 at 15 :59; Status DC Procainamide HCl 2000 mg/Dextrose 520 ml @ 0 mls/hr CONT PRN IV SEE I/O RECORD ; Start 05/09/17 at 15:45; Status UNV Sodium Phosphate 30 mmol/Dextrose 260 ml @ 65 mls/hr 1X ONCE IV ; Start 05/09 at 17:45; Stop 05/09/17 at 21:44; Status Cancel Sodium Phosphate 20 mmol/Dextrose 256.6667 ml @ 64.167 m... 1X ONCE IV Last administered on 05/09/17 18:10; Start 05/09/17 at 17:45; Stop 05/09/17 at 21 :44; Status DC Magnesium Sulfate/ Dextrose 100 ml @ 100 mls/hr 1X ONCE IV Last administered on 05/10/17 01:48; Start 05/10/17 at 02:00; Stop 05/10/17 at 02:59; Status DC Midazolam HCl (Versed) 1 mg PRN Q2HR PRN IV SEDATION; Start 05/10/17 at 02:30 Midazolam HCl (Versed) 2 mg PRN Q2HR PRN IV SEDATION; Start 05/10/17 at 02:30 Amiodarone HCl 900 mg/Dextrose 518 ml @ 0 mls/hr CONT PRN IV SEE I/O RECORD; Start 05/10/17 at 03:45; Status UNV Amiodarone HCl 450 mg/Dextrose 259 ml @ 17.26 mls/ hr CONT PRN IV SEE I/O RECORD Last administered on 05/11/17 05:43; Start 05/10/17 at 04:00 Lidocaine HCl/ Dextrose 500 ml @ 0 mls/hr CONT PRN IV SEE I/O RECORD Last administered on 05/12/17 05:40; Start 05/10/17 at 04:00; Stop 05/12/17 at 17 :20; Status DC Lidocaine HCl (Lidocaine HCl 2% Abboject) 100 mg 1X ONCE IV Last administered on 05/10/17 04:13; Start 05/10/17 at 04:30; Stop 05/10/17 at 04:31; Status DC Amiodarone HCl (Cordarone) 300 mg STK-MED ONCE .ROUTE ; Start 05/09/17 at 23:00 ; Stop 05/10/17 at 11:00; Status DC Atropine Sulfate 1 mg STK-MED ONCE .ROUTE ; Start 05/09/17 at 23:00; Stop at 11:00; Status DC Epinephrine HCl (EPINEPHrine SYRINGE) 3 mg STK-MED ONCE .ROUTE ; Start at 23:00; Stop 05/10/17 at 11:00; Status DC Lidocaine HCl (Lidocaine HCl 2% Abboject) 100 mg STK-MED ONCE .ROUTE ; Start at 23:00; Stop 05/10/17 at 11:00; Status DC Magnesium Sulfate/ Dextrose (Magnesium Sulfate PREMIX 1GM) 2 gm STK-MED ONCE IV ; Start 05/09/17 at 23:00; Stop 05/10/17 at 11:00; Status DC Potassium Phosphate 13.6 mmol/Dextrose 104.5333 ml @ 52.267 m... ONCE ONCE IV Last administered on 05/10/17 15:54; Start 05/10/17 at 14:00; Stop at 15:59; Status DC Sodium Acetate 90 meq/Potassium Chloride 70 meq/ Potassium Phosphate 20.4 mmol/ Magnesium Sulfate 18 meq/ Calcium Gluconate 10 meq/ Multivitamins 10 ml/Chromium / Copper/Manganese/ Seleni/Zn 1 ml/ Total Parenteral Nutrition/Amino Acids/ Dextrose/ Fat Emulsion Intravenous 1,512 ml @ 63 mls/hr TPN CONT IV Last administered on 05/10/17 22:00; Start 05/10/17 at 22:00; Stop 05/11/17 at 21 :59; Status DC Lidocaine/Sodium Bicarbonate (Buffered Lidocaine 1%) 20 ml STK-MED ONCE IJ ; Start 05/10/17 at 13:45; Stop 05/10/17 at 13:46; Status DC Lidocaine/Sodium Bicarbonate (Buffered Lidocaine 1%) 3 ml 1X ONCE IJ Last administered on 05/10/17 13:45; Start 05/10/17 at 13:45; Stop 05/10/17 at 13 :57; Status DC Sodium Chloride 250 ml @ 250 mls/hr 1X ONCE IV ; Start 05/10/17 at 13:45; Stop 05/10/17 at 14:44; Status DC Albuterol Sulfate (Ventolin Neb Soln) 2.5 mg 1X ONCE NEB Last administered on 05/10/17 19:54; Start 05/10/17 at 20:00; Stop 05/10/17 at 20:01; Status DC Furosemide (Lasix) 40 mg 1X ONCE IVP Last administered on 05/10/17 21:22; Start 05/10/17 at 21:30; Stop 05/10/17 at 21:31; Status DC Dobutamine HCl/ Dextrose 250 ml @ 0 mls/hr CONT PRN IV SEE I/O RECORD Last administered on 05/12/17 05:01; Start 05/10/17 at 21:15 Sodium Acetate 120 meq/Potassium Chloride 70 meq/ Potassium Phosphate 27.2 mmol/ Magnesium Sulfate 22 meq/ Calcium Gluconate 5 meq/ Multivitamins 10 ml/Chromium / Copper/Manganese/ Seleni/Zn 1 ml/ Total Parenteral Nutrition/Amino Acids/ Dextrose/ Fat Emulsion Intravenous 1,512 ml @ 63 mls/hr TPN CONT IV ; Start 05/11/17 at 22:00; Stop 05/12/17 at 21:59; Status Cancel Potassium Phosphate 13.6 mmol/Dextrose 104.5333 ml @ 52.267 m... ONCE ONCE IV Last administered on 05/11/17 13:24; Start 05/11/17 at 13:00; Stop at 14:59; Status DC Sodium Acetate 120 meq/Potassium Chloride 70 meq/ Potassium Phosphate 25 mmol/ Magnesium Sulfate 22 meq/Calcium Gluconate 5 meq/ Multivitamins 10 ml/Chromium/ Copper/Manganese/ Seleni/Zn 1 ml/ Total Parenteral Nutrition/Amino Acids/ Dextrose/ Fat Emulsion Intravenous 1,512 ml @ 63 mls/hr TPN CONT IV Last administered on 05/11/17 21:56; Start 05/11/17 at 22:00; Stop 05/12/17 at 21 :59; Status DC Furosemide (Lasix) 40 mg DAILY IVP Last administered on 05/13/17 08:34; Start 05/12/17 at 09:00 Sodium Acetate 120 meq/Potassium Chloride 70 meq/ Potassium Phosphate 25 mmol/ Magnesium Sulfate 22 meq/Calcium Gluconate 5 meq/ Multivitamins 10 ml/Chromium/ Copper/Manganese/ Seleni/Zn 1 ml/ Total Parenteral Nutrition/Amino Acids/ Dextrose/ Fat Emulsion Intravenous 1,512 ml @ 63 mls/hr TPN CONT IV Last administered on 05/12/17 22:50; Start 05/12/17 at 22:00; Stop 05/13/17 at 21 :59 Magnesium Sulfate/ Dextrose (Magnesium Sulfate PREMIX 1GM) 2 gm STK-MED ONCE IV ; Start 05/05/17 at 12:00; Stop 05/12/17 at 17:24; Status DC Sodium Acetate 120 meq/Potassium Chloride 70 meq/ Potassium Phosphate 25 mmol/ Magnesium Sulfate 22 meq/Calcium Gluconate 5 meq/ Multivitamins 10 ml/Chromium/ Copper/Manganese/ Seleni/Zn 1 ml/ Sodium Chloride 40 meq/Total Parenteral Nutrition/Amino Acids/Dextrose/ Fat Emulsion Intravenous 1,512 ml @ 63 mls/hr TPN CONT IV ; Start 05/13/17 at 22:00; Stop 05/14/17 at 21:59 Active Scripts Active Reported Levofloxacin 500 Mg Tablet 500 Mg PO DAILY Tramadol Hcl 50 Mg Tablet 50 Mg PO Q6H PRN Ondansetron Hcl 4 Mg Tablet 8 Mg PO BID PRN [place] 5-325 Tablet (Acetaminophen/Hydrocodone Bitart) 1 Each Tablet 1-2 Tab PO Q4HRS PRN Atorvastatin Calcium 40 Mg Tablet 1 Tab PO DAILY Metoprolol Tartrate 25 Mg Tablet 1 Tab PO BID Pantoprazole Sodium 40 Mg Tablet.dr 1 Tab PO DAILY Diazepam 5 Mg Tablet 5 Mg PO TID Venlafaxine Hcl Er (Venlafaxine Hcl) 75 Mg Cap.er.24h 75 Mg PO DAILY Synthroid (Levothyroxine Sodium) 75 Mcg Tablet 75 Mcg PO DAILYAC Vitals/I & O Vital Sign - Last 24 Hours 05/12/17 05/12/17 05/12/17 05/12/17 17:00 18:00 19:00 19:59 Pulse 65 70 71 Resp 18 24 22 B/P (MAP) 113/62 (79) 114/69 (84) 114/64 (81) Pulse Ox 91 93 93 O2 Delivery Room Air Room Air Room Air Room Air 05/12/17 05/12/17 05/12/17 05/12/17 20:00 21:00 21:41 22:00 Temp 98.4 98.4 Pulse 71 80 79 73 Resp 21 24 B/P (MAP) 115/66 (82) 114/64 115/66 121/70 (87) Pulse Ox 91 93 O2 Delivery Room Air Room Air 05/12/17 05/13/17 05/13/17 05/13/17 23:00 00:00 00:07 01:00 Temp 98.4 98.4 Pulse 73 76 73 Resp 27 21 20 B/P (MAP) 124/69 (87) 115/64 (81) 123/69 (87) Pulse Ox 91 94 92 O2 Delivery Room Air Room Air Room Air Room Air 05/13/17 05/13/17 05/13/17 05/13/17 02:00 03:00 04:00 04:05 Temp 98.5 98.5 Pulse 73 74 75 Resp 19 19 20 B/P (MAP) 128/68 (88) 120/62 (81) 126/68 (87) Pulse Ox 92 92 91 O2 Delivery Room Air Room Air Room Air Room Air 05/13/17 05/13/17 05/13/17 05/13/17 05:00 06:00 07:00 08:00 Temp 98.3 98.3 Pulse 71 68 77 70 Resp 19 19 19 19 B/P (MAP) 105/62 (76) 132/65 (87) 121/66 (84) 136/74 (94) Pulse Ox 92 92 90 95 O2 Delivery Room Air Room Air Room Air Nasal Cannula O2 Flow Rate 2.0 05/13/17 05/13/17 05/13/17 05/13/17 08:00 08:34 08:34 09:00 Pulse 64 64 69 Resp 20 B/P (MAP) 136/74 136/74 136/80 (98) Pulse Ox 97 O2 Delivery Room Air Nasal Cannula O2 Flow Rate 2.0 2.0 05/13/17 05/13/17 05/13/17 05/13/17 10:00 11:00 12:00 13:00 Temp 98.5 98.5 Pulse 69 74 70 74 Resp 18 20 18 18 B/P (MAP) 107/64 (78) 103/58 (73) 81/56 (64) 91/58 (69) Pulse Ox 97 97 97 97 O2 Delivery Nasal Cannula Nasal Cannula Nasal Cannula Nasal Cannula O2 Flow Rate 2.0 2.0 2.0 2.0 05/13/17 05/13/17 05/13/17 14:00 15:00 16:02 Temp 98.4 98.4 Pulse 74 76 75 Resp 18 19 20 B/P (MAP) 82/56 (65) 106/76 (86) 84/60 (68) Pulse Ox 97 96 96 O2 Delivery Nasal Cannula Nasal Cannula Nasal Cannula O2 Flow Rate 2.0 2.0 2.0 Intake and Output 05/13/17 05/13/17 05/14/17 15:00 23:00 07:00 Output Total 775 ml Balance -775 ml Nutrition Consultation Dietary Evaluation: Recommendations by RD: PPN/TPN Comments: Continue current TPN infusion: 225 g dextrose, 60 g AA, 20 g lipid Encouraged some PO intake to maintain gut health Can dc TPN once PO intake meeting > 75% est needs Expected Outcomes/Goals: TPN infusion initiated and meeting > 75% est needs within 24 - 48 hrs - met, ongoing Malnutrition Findings: Food and Nutrition Intake (Mod: <75% est energy req 7days Weight Status: Overweight NEO ASHRAF MD May 13, 2017 16:26
--- NOTE | 2017-05-13 16:26 | PDOC ---
MODERATE SEDATION ASSESSMENT RISKS/ALTERNATIVES Risks/Alternatives Risks and alternatives of this type of sedation and procedure discussed with: RISK/ALTERNATIVES: Patient H & P ON CHART H & P H & P on chart and reviewed for co-morbid conditions and appropriate labs. H&P ON CHART: Yes STATUS PREG STATUS ASSESSED: Yes MEDS/ALLERGIES REVIEWED Meds/Allergies Reviewed Medications and Allergies including time and route of recently administered narcotics and sedatives. MEDS/ALLERGIES REVIEWED: Yes ASA RATING ASA RATING: II AIRWAY ASSESSMENT Airway Assessment Airway patency, oral function limitations, presence of caps, crowns, dentures, partials, and ability to extend neck assessed. AIRWAY ASSESSMENT: Yes MALLAMPATI SCORE MALLAMPATI SCORE: II PRE-SEDATION ASSESSMENT PRE-SEDATION ASSESSMENT: Yes NEO ASHRAF MD May 13, 2017 16:26
[2017-05-13] MEDS ORDERED: AMINO ACIDS IV SCH ×11 (22:00)
[2017-05-13] MEDS ORDERED: TOTAL PARENTERAL NUTRITION IV SCH ×11 (22:00)
[2017-05-13] MEDS ORDERED: [UNRECOGNIZED DRUG - OTHER] IV SCH ×11 (22:00)
[2017-05-13] MEDS ORDERED: DEXTROSE 70% IV SCH ×11 (22:00)
[2017-05-14] VITALS (25 sets, daily range): BP systolic 96–146; BP diastolic 57–84
[2017-05-14 06:46] LABS: CALCIUM 8.1 mg/dL (8.5-10.1); CREATININE 0.9 mg/dL (0.6-1.0); GFR 61.2; MAGNESIUM 2.1 mg/dL (1.8-2.4); PHOSPHORUS 4.1 mg/dL (2.6-4.7); POTASSIUM 4.3 mmol/L (3.5-5.1)
--- NOTE | 2017-05-14 08:35 | PDOC ---
GENERAL General: vss and afebrile. awake and alert and son in attendance. no further malignant ventricular arrhymias. chest clear and heart regular and abdomen benign. mouth clearing daily. ate some yesterday. up in chair most of day yesterday and weak. heart cath this am with plans to follow. otherwise same. Problems: VITAL SIGNS Vital Signs: Vital Signs Date Time Temp Pulse Resp B/P (MAP) Pulse Ox O2 Delivery O2 Flow Rate FiO2 05/14/17 07:00 74 19 131/68 (89) 96 Nasal Cannula 2.0 05/14/17 04:00 98.7 98.7 I & O I & O Intake and Output 05/14/17 07:00 Intake Total 1700.57 ml Output Total 1985 ml Balance -284.43 ml Intake Oral 500 ml IV Total 1200.57 ml Output Urine Total 1385 ml Stool Total 600 ml ALLERGIES Allergies: Allergies Coded Allergies Type Severity Reaction Last Updated Verified codeine Adverse Reaction Intermediate Patient states hallucinations 10/19/16 Yes MEDS Medications: Current Medications Medications (Trade) Dose Ordered Sig/Fannie Start Time Stop Time Status Last Admin Dose Admin Acyclovir (Zovirax) 400 mg [id number] 05/06/17 09:00 05/13/17 20:58 400 MG Albuterol Sulfate (Ventolin Neb Soln) 2.5 mg 1X ONCE 05/10/17 20:00 05/10/17 20:01 DC 05/10/17 19:54 2.5 MG Amiodarone HCl (Cordarone) 300 mg STK-MED ONCE 05/09/17 23:00 05/10/17 11:00 DC Amiodarone HCl 150 mg/Dextrose 103 ml @ 618 mls/hr 1X ONCE 05/09/17 14:00 05/09/17 14:09 DC 05/09/17 14:28 618 MLS/HR Amiodarone HCl 450 mg/Dextrose 259 ml @ 17.26 mls/ hr CONT PRN 05/10/17 04:00 05/11/17 05:43 17.26 MLS/HR Amiodarone HCl 900 mg/Dextrose 518 ml @ 0 mls/hr CONT PRN 05/10/17 03:45 UNV Atorvastatin Calcium (Lipitor) 40 mg DAILY 05/06/17 09:00 05/13/17 08:33 40 MG Atropine Sulfate 1 mg STK-MED ONCE 05/09/17 23:00 05/10/17 11:00 DC Calcium Gluconate (Calcium Gluconate) 1,000 mg 1X ONCE 05/09/17 14:00 05/09/17 14:01 DC 05/09/17 14:28 1,000 MG Ceftriaxone Sodium 1 gm/ Dextrose 50 ml @ 100 mls/hr Q24H 05/05/17 18:00 UNV Ceftriaxone Sodium (Rocephin) 1 gm Q24H 05/05/17 18:00 05/13/17 08:09 DC 05/12/17 17:46 1 GM Diazepam (Valium) 5 mg TID 05/05/17 21:00 05/13/17 20:58 5 MG Dobutamine HCl/ Dextrose 250 ml @ 0 mls/hr CONT PRN 05/10/17 21:15 05/13/17 20:58 5.756 MLS/HR Doxycycline Hyclate (Vibra-Tab) 100 mg BID 05/06/17 14:00 05/12/17 07:50 DC 05/11/17 21:01 100 MG Epinephrine HCl (EPINEPHrine SYRINGE) 3 mg STK-MED ONCE 05/09/17 23:00 05/10/17 11:00 DC Furosemide (Lasix) 40 mg DAILY 05/12/17 09:00 05/13/17 08:34 40 MG Info 1 each PRN DAILY PRN 05/09/17 13:45 05/13/17 11:24 1 EACH Levothyroxine Sodium (Synthroid) 75 mcg DAILYAC 05/06/17 07:30 05/13/17 08:37 75 MCG Lidocaine HCl (Lidocaine HCl 2% Abboject) 100 mg STK-MED ONCE 05/09/17 23:00 05/10/17 11:00 DC Lidocaine HCl/ Dextrose 500 ml @ 0 mls/hr CONT PRN 05/10/17 04:00 05/12/17 17:20 DC 05/12/17 05:40 15 MLS/HR Lidocaine/Sodium Bicarbonate (Buffered Lidocaine 1%) 3 ml 1X ONCE 05/10/17 13:45 05/10/17 13:57 DC 05/10/17 13:45 3 ML Magnesium Sulfate/ Dextrose (Magnesium Sulfate PREMIX 1GM) 2 gm STK-MED ONCE 05/05/17 12:00 11/15/17 17:24 DC Metoprolol Tartrate (Lopressor) 25 mg BID 05/05/17 21:00 05/13/17 08:34 25 MG Midazolam HCl (Versed) 2 mg PRN Q2HR PRN 05/10/17 02:30 Multi-Ingredient Mouthwash/Gargle (Magic Mouthwash) 10 ml PRN QID PRN 05/07/17 09:00 05/08/17 10:12 10 ML Nystatin 5 ml [id number] 05/07/17 13:00 05/13/17 20:59 5 ML Ondansetron HCl (Zofran Odt) 8 mg PRN Q12HRS PRN 05/05/17 18:30 05/11/17 11:52 8 MG Pantoprazole Sodium (Protonix) 40 mg DAILY 05/06/17 09:00 05/13/17 08:34 40 MG Potassium Chloride/Dextrose/ Sod Cl 1,000 ml @ 75 mls/hr [id number] 05/09/17 11:00 05/11/17 08:26 DC 05/10/17 17:58 75 MLS/HR Potassium Chloride/Sodium Chloride 1,000 ml @ 80 mls/hr [id number] 05/08/17 17:30 05/09/17 18:27 DC 05/09/17 05:49 80 MLS/HR Potassium Phosphate 13.6 mmol/Dextrose 104.5333 ml @ 52.267 m... ONCE ONCE 05/11/17 13:00 05/11/17 14:59 DC 05/11/17 13:24 52.267 MLS/HR Potassium Chloride (Klor-Con) 40 meq 1X ONCE 05/09/17 11:00 05/09/17 11:01 DC Procainamide HCl 500 mg/Dextrose 55 ml @ 110 mls/hr 1X ONCE 05/09/17 15:30 05/09/17 15:59 DC 05/09/17 15:49 110 MLS/HR Procainamide HCl 2000 mg/Dextrose 520 ml @ 0 mls/hr CONT PRN 05/09/17 15:45 UNV Sodium Acetate 120 meq/Potassium Chloride 70 meq/ Potassium Phosphate 25 mmol/ Magnesium Sulfate 22 meq/Calcium Gluconate 5 meq/ Multivitamins 10 ml/Chromium/ Copper/Manganese/ Seleni/Zn 1 ml/ Sodium Chloride 40 meq/Total Parenteral Nutrition/Amino Acids/Dextrose/ Fat Emulsion Intravenous 1,512 ml @ 63 mls/hr TPN CONT 05/13/17 22:00 05/14/17 21:59 05/13/17 23:09 63 MLS/HR Sodium Acetate 120 meq/Potassium Chloride 70 meq/ Potassium Phosphate 25 mmol/ Magnesium Sulfate 22 meq/Calcium Gluconate 5 meq/ Multivitamins 10 ml/Chromium/ Copper/Manganese/ Seleni/Zn 1 ml/ Total Parenteral Nutrition/Amino Acids/Dextrose/ Fat Emulsion Intravenous 1,512 ml @ 63 mls/hr TPN CONT 05/12/17 22:00 05/13/17 21:59 DC 05/12/17 22:50 63 MLS/HR Sodium Acetate 120 meq/Potassium Chloride 70 meq/ Potassium Phosphate 27.2 mmol/Magnesium Sulfate 22 meq/ Calcium Gluconate 5 meq/ Multivitamins 10 ml/Chromium/ Copper/Manganese/ Seleni/Zn 1 ml/ Total Parenteral Nutrition/Amino Acids/Dextrose/ Fat Emulsion Intravenous 1,512 ml @ 63 mls/hr TPN CONT 05/11/17 22:00 05/12/17 21:59 Cancel Sodium Acetate 90 meq/Potassium Chloride 70 meq/ Potassium Phosphate 20.4 mmol/Magnesium Sulfate 18 meq/ Calcium Gluconate 10 meq/ Multivitamins 10 ml/Chromium/ Copper/Manganese/ Seleni/Zn 1 ml/ Total Parenteral Nutrition/Amino Acids/Dextrose/ Fat Emulsion Intravenous 1,512 ml @ 63 mls/hr TPN CONT 05/10/17 22:00 05/11/17 21:59 DC 05/10/17 22:00 63 MLS/HR Sodium Bicarbonate 100 meq 1X ONCE 05/08/17 15:30 05/08/17 15:31 DC 05/08/17 16:52 100 MEQ Sodium Chloride 250 ml @ 250 mls/hr 1X ONCE 05/10/17 13:45 05/10/17 14:44 DC Sodium Chloride 90 meq/Potassium Acetate 70 meq/ Potassium Phosphate 18 mmol/ Magnesium Sulfate 12 meq/Calcium Gluconate 10 meq/ Multivitamins 10 ml/Chromium/ Copper/Manganese/ Seleni/Zn 1 ml/ Total Parenteral Nutrition/Amino Acids/Dextrose/ Fat Emulsion Intravenous 1,512 ml @ 63 mls/hr TPN CONT 05/09/17 22:00 05/10/17 21:59 DC 05/09/17 21:39 63 MLS/HR Sodium Chloride 90 meq/Potassium Chloride 50 meq/ Potassium Phosphate 13.6 mmol/Magnesium Sulfate 10 meq/ Calcium Gluconate 10 meq/ Multivitamins 10 ml/Chromium/ Copper/Manganese/ Seleni/Zn 1 ml/ Total Parenteral Nutrition/Amino Acids/Dextrose/ Fat Emulsion Intravenous 1,387.0013 ml @ 3.625 mls/hr TPN CONT 05/09/17 22:00 UNV Sodium Phosphate 20 mmol/Dextrose 256.6667 ml @ 64.167 m... 1X ONCE 05/09/17 17:45 05/09/17 21:44 DC 05/09/17 18:10 64.167 MLS/HR Sodium Phosphate 30 mmol/Dextrose 260 ml @ 65 mls/hr 1X ONCE 05/09/17 17:45 05/09/17 21:44 Cancel Tramadol HCl (Ultram) 50 mg PRN Q6HRS PRN 05/05/17 18:15 Vancomycin HCl 1 each 1X ONCE 05/07/17 19:00 05/07/17 19:01 Cancel Vancomycin HCl (Vanco Per Pharmacy) 1 each PRN DAILY PRN 05/05/17 18:00 05/06/17 13:10 DC 05/06/17 12:53 1 EACH Vancomycin HCl 1.75 gm/Dextrose 500 ml @ 250 mls/hr 1X ONCE 05/05/17 18:30 05/05/17 20:29 DC 05/05/17 19:21 250 MLS/HR Vancomycin HCl 1 gm/Dextrose 250 ml @ 250 mls/hr Q24H 05/06/17 19:30 05/06/17 19:30 DC Venlafaxine HCl (Effexor Xr) 75 mg DAILY 05/06/17 09:00 05/13/17 08:34 75 MG LAB Lab: Laboratory Tests Test 05/14/17 05:45 Sodium Level 133 mmol/L (136-145) Potassium Level 4.3 mmol/L (3.5-5.1) Chloride Level 98 mmol/L (98-107) Carbon Dioxide Level 29 mmol/L (21-32) Anion Gap 6 (6-14) Blood Urea Nitrogen 18 mg/dL (7-20) Creatinine 0.9 mg/dL (0.6-1.0) Estimated GFR (Cockcroft-Gault) 61.2 Glucose Level 115 mg/dL (70-99) Calcium Level 8.1 mg/dL (8.5-10.1) Phosphorus Level 4.1 mg/dL (2.6-4.7) Magnesium Level 2.1 mg/dL (1.8-2.4) Nutrition Consultation Dietary Evaluation: Recommendations by RD: PPN/TPN Comments: Continue current TPN infusion: 225 g dextrose, 60 g AA, 20 g lipid Encouraged some PO intake to maintain gut health Can dc TPN once PO intake meeting > 75% est needs Expected Outcomes/Goals: TPN infusion initiated and meeting > 75% est needs within 24 - 48 hrs - met, ongoing Malnutrition Findings: Food and Nutrition Intake (Mod: <75% est energy req 7days Weight Status: Overweight ZACK LOPEZ MD May 14, 2017 08:35
[2017-05-14 09:03] LABS: BASO % 0 % (0-3); EOS % 0 % (0-3); HEMOGLOBIN 9.1 g/dL (12.0-15.5); LYMPH # 1.1 x10^3/uL (1.0-4.8); LYMPH % 17 % (24-48); MEAN CORPUSCULAR HEMOGLOBIN 34 pg (25-35); MEAN CORPUSCULAR HGB CONC 34 g/dL (31-37); MEAN CORPUSCULAR VOLUME 101 fL (79-100); MONO % 20 % (0-9); NEUT % 63 % (31-73); PLATELET COUNT 89 x10^3/uL (140-400); RED BLOOD COUNT 2.66 x10^6/uL (3.50-5.40); RED CELL DISTRIBUTION WIDTH 20.9 % (11.5-14.5); WHITE BLOOD COUNT 6.4 x10^3/uL (4.0-11.0)
--- NOTE | 2017-05-14 09:10 | PDOC ---
Infectious Disease Note Subjective Subjective pt feeling ok, Nausea resolved ROS ROS GEN: Denies fevers, chills, sweats HEENT: Denies blurred vision, sore throat CV: Denies chest pain RESP: Denies shortness of air, cough GI: Denies n/v/d NEURO: Denies confusion, dizziness MSK: Denies weakness, joint pain/swelling Vital Sign Vital Signs Vital Signs Date Time Temp Pulse Resp B/P (MAP) Pulse Ox O2 Delivery O2 Flow Rate FiO2 05/14/17 08:00 98.6 72 19 140/72 (94) 96 Nasal Cannula 2.0 98.6 Physical Exam PHYSICAL EXAM GENERAL: NAD, Alert. Looks better -eating HEENT: PERRL, OC/OP -dry. Lips with min crusting. Dentures NECK: Supple, no JVD, no LN LUNGS: Clear. on 02 HEART: S1S2, no gallop, no murmur ABD: Soft, NT, no organomegaly, no rebound, Ostomy [place]aca EXT: No edema, no cyanosis [employer]: Alert, oriented x 3, no focal neurologic deficit SKIN: No rash IV: Port left chest - clean. [facility] Labs Lab Laboratory Tests Test 05/14/17 05:45 Sodium Level 133 mmol/L (136-145) Potassium Level 4.3 mmol/L (3.5-5.1) Chloride Level 98 mmol/L (98-107) Carbon Dioxide Level 29 mmol/L (21-32) Anion Gap 6 (6-14) Blood Urea Nitrogen 18 mg/dL (7-20) Creatinine 0.9 mg/dL (0.6-1.0) Estimated GFR (Cockcroft-Gault) 61.2 Glucose Level 115 mg/dL (70-99) Calcium Level 8.1 mg/dL (8.5-10.1) Phosphorus Level 4.1 mg/dL (2.6-4.7) Magnesium Level 2.1 mg/dL (1.8-2.4) Objective Assessment S/p code 05/09 - V - tach s/p shock now on Lidocaine/Procaine/Amiodarone/ Dobutamine Neutropenia and thrombocytopenia from chemo.- improved Fever, chills prior to admit bronchitis possible early pneumonia - CXR improving - seen this am Pyruia and dysuria Mucositis dysphagia History of colon cancer stage 4, status post surgery and recently on chemotherapy. Oral mucositis. Renal insufficiency. Hyperlipidemia. Hypertension. Degenerative joint disease. Hypothyroidism. Plan Plan of Care 1. Discontinue Rocephin today (05/13) d/c'd doxycycline today (05/12) 2. continue acyclovir for now ID to sign off d/w family DANIEL FORD MD May 14, 2017 09:10
--- NOTE | 2017-05-14 09:12 | PDOC ---
PROGRESS NOTES Subjective Subjective c/c - f/u of colon ca ROS - dyspnea stable Objective Objective Vital Signs Date Time Temp Pulse Resp B/P (MAP) Pulse Ox O2 Delivery O2 Flow Rate FiO2 05/14/17 08:00 98.6 72 19 140/72 (94) 96 Nasal Cannula 2.0 98.6 Intake and Output 05/14/17 07:00 Intake Total 1700.57 ml Output Total 1985 ml Balance -284.43 ml Intake Oral 500 ml IV Total 1200.57 ml Output Urine Total 1385 ml Stool Total 600 ml Physical Exam Heart: Normal S1, Normal S2 General: Alert, Oriented X3 Lungs: Clear to auscultation Neuro: Normal speech Psych/Mental Status: Mental status NL Assessment Assessment Assessment/Plan 1. Colon ca -s/p chemo 04/27/17. No evidence of disease after surgery. No further chemo, I will cancel cycle 12. Plan CT for restaging. CEA normal. 2. Urinary tract infection. Appreciate ID management. 3. Neutropenia and thrombocytopenia from chemo, monitor cbc. WBC 5.2, plt 64. 4. had code on floor - was shocked 6 times and has had some brief torsades since being in ICU, not intubated and ok bp and feels ok. Management per Dr Fernando. 5. Progressive dyspnea, multifactorial secondary to CHF, weakness from her recent chemotherapy and toxicities/ NEW CM EF 25 % I d/w Dr Fernando, agree with cardiac cath. Comment Review of Relevant I have reviewed the following items armida (where applicable) has been applied. Labs Laboratory Tests Test 05/13/17 05:00 05/14/17 05:45 White Blood Count 5.2 x10^3/uL (4.0-11.0) Red Blood Count 2.72 x10^6/uL (3.50-5.40) Hemoglobin 9.3 g/dL (12.0-15.5) Hematocrit 27.1 % (36.0-47.0) Mean Corpuscular Volume 100 fL (79-100) Mean Corpuscular Hemoglobin 34 pg (25-35) Mean Corpuscular Hemoglobin Concent 34 g/dL (31-37) Red Cell Distribution Width 21.1 % (11.5-14.5) Platelet Count 69 x10^3/uL (140-400) Neutrophils (%) (Auto) 57 % (31-73) Lymphocytes (%) (Auto) 20 % (24-48) Monocytes (%) (Auto) 22 % (0-9) Eosinophils (%) (Auto) 0 % (0-3) Basophils (%) (Auto) 1 % (0-3) Neutrophils # (Auto) 2.9 x10^3uL (1.8-7.7) Lymphocytes # (Auto) 1.0 x10^3/uL (1.0-4.8) Monocytes # (Auto) 1.2 x10^3/uL (0.0-1.1) Eosinophils # (Auto) 0.0 x10^3/uL (0.0-0.7) Basophils # (Auto) 0.0 x10^3/uL (0.0-0.2) Sodium Level 133 mmol/L (136-145) 133 mmol/L (136-145) Potassium Level 4.6 mmol/L (3.5-5.1) 4.3 mmol/L (3.5-5.1) Chloride Level 99 mmol/L (98-107) 98 mmol/L (98-107) Carbon Dioxide Level 29 mmol/L (21-32) 29 mmol/L (21-32) Anion Gap 5 (6-14) 6 (6-14) Blood Urea Nitrogen 15 mg/dL (7-20) 18 mg/dL (7-20) Creatinine 0.9 mg/dL (0.6-1.0) 0.9 mg/dL (0.6-1.0) Estimated GFR (Cockcroft-Gault) 61.2 61.2 BUN/Creatinine Ratio 17 (6-20) Glucose Level 112 mg/dL (70-99) 115 mg/dL (70-99) Calcium Level 7.9 mg/dL (8.5-10.1) 8.1 mg/dL (8.5-10.1) Phosphorus Level 3.7 mg/dL (2.6-4.7) 4.1 mg/dL (2.6-4.7) Magnesium Level 2.1 mg/dL (1.8-2.4) 2.1 mg/dL (1.8-2.4) Total Bilirubin 0.4 mg/dL (0.2-1.0) Aspartate Amino Transf (AST/SGOT) 20 U/L (15-37) Alanine Aminotransferase (ALT/SGPT) 19 U/L (14-59) Alkaline Phosphatase 81 U/L (46-116) Total Protein 5.3 g/dL (6.4-8.2) Albumin 2.1 g/dL (3.4-5.0) Albumin/Globulin Ratio 0.7 (1.0-1.7) Laboratory Tests Test 05/14/17 05:45 Sodium Level 133 mmol/L (136-145) Potassium Level 4.3 mmol/L (3.5-5.1) Chloride Level 98 mmol/L (98-107) Carbon Dioxide Level 29 mmol/L (21-32) Anion Gap 6 (6-14) Blood Urea Nitrogen 18 mg/dL (7-20) Creatinine 0.9 mg/dL (0.6-1.0) Estimated GFR (Cockcroft-Gault) 61.2 Glucose Level 115 mg/dL (70-99) Calcium Level 8.1 mg/dL (8.5-10.1) Phosphorus Level 4.1 mg/dL (2.6-4.7) Magnesium Level 2.1 mg/dL (1.8-2.4) Microbiology 05/06/17 Urine Culture - Final, Complete 05/06/17 Urine Culture Result 1 (MARINE) - Final, Complete Medications Current Medications Ceftriaxone Sodium 1 gm/ Dextrose 50 ml @ 100 mls/hr Q24H IV ; Start 05/05/17 at 18:00; Status UNV Vancomycin HCl (Vanco Per Pharmacy) 1 each PRN DAILY PRN MC SEE COMMENTS Last administered on 05/06/17 12:53; Start 05/05/17 at 18:00; Stop 05/06/17 at 13:10 ; Status DC Ceftriaxone Sodium (Rocephin) 1 gm Q24H IVP Last administered on 05/12/17 17: 46; Start 05/05/17 at 18:00; Stop 05/13/17 at 08:09; Status DC Sodium Chloride 1,000 ml @ 75 mls/hr [id number] IV Last administered on 04:20; Start 05/05/17 at 18:15; Stop 05/08/17 at 13:44; Status DC Atorvastatin Calcium (Lipitor) 40 mg DAILY PO Last administered on 05/13/17 08:33; Start 05/06/17 at 09:00 Diazepam (Valium) 5 mg TID PO Last administered on 05/13/17 20:58; Start 05/05/17 at 21:00 Levothyroxine Sodium (Synthroid) 75 mcg DAILYAC PO Last administered on 08:37; Start 05/06/17 at 07:30 Metoprolol Tartrate (Lopressor) 25 mg BID PO Last administered on 05/13/17 08 :34; Start 05/05/17 at 21:00 Pantoprazole Sodium (Protonix) 40 mg DAILY PO Last administered on 05/13/17 08:34; Start 05/06/17 at 09:00 Tramadol HCl (Ultram) 50 mg PRN Q6HRS PRN PO PAIN; Start 05/05/17 at 18:15 Ondansetron HCl (Zofran Odt) 8 mg PRN Q12HRS PRN PO NAUSEA/VOMITING Last administered on 05/11/17 11:52; Start 05/05/17 at 18:30 Venlafaxine HCl (Effexor Xr) 75 mg DAILY PO Last administered on 05/13/17 08: 34; Start 05/06/17 at 09:00 Vancomycin HCl 1.75 gm/Dextrose 500 ml @ 250 mls/hr 1X ONCE IV Last administered on 05/05/17 19:21; Start 05/05/17 at 18:30; Stop 05/05/17 at 20:29 ; Status DC Vancomycin HCl 1 gm/Dextrose 250 ml @ 250 mls/hr Q24H IV ; Start 05/06/17 at 19 :30; Stop 05/06/17 at 19:30; Status DC Vancomycin HCl 1 each 1X ONCE MC ; Start 05/07/17 at 19:00; Stop 05/07/17 at 19:01; Status Cancel Acyclovir (Zovirax) 400 mg [id number] PO Last administered on 05/13/17 20:58; Start 05/06/17 at 09:00 Doxycycline Hyclate (Vibra-Tab) 100 mg BID PO Last administered on 05/11/17 21:01; Start 05/06/17 at 14:00; Stop 05/12/17 at 07:50; Status DC Multi-Ingredient Mouthwash/Gargle (Magic Mouthwash) 10 ml PRN QID PRN PO MOUTH PAIN Last administered on 05/08/17 10:12; Start 05/07/17 at 09:00 Nystatin 5 ml [id number] Last administered on 05/13/17 20:59; Start at 13:00 Potassium Chloride/Dextrose/ Sod Cl 1,000 ml @ 75 mls/hr [id number] IV ; Start at 14:00; Stop 05/08/17 at 16:37; Status DC Potassium Chloride (Klor-Con) 40 meq 1X ONCE PO Last administered on 14:12; Start 05/08/17 at 14:00; Stop 05/08/17 at 14:01; Status DC Amiodarone HCl 900 mg/Dextrose 518 ml @ 34.53 mls/ hr CONT PRN IV SEE I/O RECORD Last administered on 05/09/17 14:28; Start 05/08/17 at 14:45; Stop at 14:29; Status DC Amiodarone HCl 900 mg/Dextrose 518 ml @ 0 mls/hr CONT PRN IV SEE I/O RECORD; Start 05/08/17 at 14:45; Status UNV Sodium Chloride 500 ml @ 500 mls/hr 1X ONCE IV Last administered on 15:30; Start 05/08/17 at 15:30; Stop 05/08/17 at 16:29; Status DC Sodium Bicarbonate 100 meq 1X ONCE IV Last administered on 05/08/17 16:52; Start 05/08/17 at 15:30; Stop 05/08/17 at 15:31; Status DC Magnesium Sulfate/ Dextrose 100 ml @ 100 mls/hr 1X ONCE IV Last administered on 05/08/17 16:00; Start 05/08/17 at 16:00; Stop 05/08/17 at 16:59; Status DC Magnesium Sulfate/ Dextrose 100 ml @ 100 mls/hr 1X ONCE IV Last administered on 05/08/17 16:00; Start 05/08/17 at 16:00; Stop 05/08/17 at 16:59; Status DC Potassium Chloride (Klor-Con) 40 meq [id number] PO ; Start 05/09/17 at 08:00; Stop 05/09/17 at 08:17; Status DC Potassium Chloride (Klor-Con) 40 meq 1X ONCE PO Last administered on 16:53; Start 05/08/17 at 17:00; Stop 05/08/17 at 17:01; Status DC Potassium Chloride/Sodium Chloride 1,000 ml @ 80 mls/hr [id number] IV Last administered on 05/09/17 05:49; Start 05/08/17 at 17:30; Stop 05/09/17 at 18 :27; Status DC Amiodarone HCl 150 mg/Dextrose 103 ml @ 618 mls/hr 1X ONCE IV Last administered on 05/09/17 07:22; Start 05/09/17 at 07:00; Stop 05/09/17 at 07 :09; Status DC Magnesium Sulfate/ Dextrose 50 ml @ 25 mls/hr 1X ONCE IV Last administered on 05/09/17 07:11; Start 05/09/17 at 07:00; Stop 05/09/17 at 08:59; Status DC Potassium Chloride 50 ml @ 25 mls/hr PRN Q2HRS PRN IV K-3.1 TO 3.5 Last administered on 05/09/17 11:44; Start 05/09/17 at 06:45; Stop 05/09/17 at 11 :44; Status DC Potassium Chloride 50 ml @ 25 mls/hr PRN Q2HRS PRN IV K 2.6 TO 3; Start at 06:45 Potassium Chloride 50 ml @ 25 mls/hr PRN Q2HRS PRN IV FOR K<2.6; Start at 08:00 Magnesium Sulfate/ Dextrose 100 ml @ 50 mls/hr PRN DAILY PRN IV MAG<1.8 Last administered on 05/11/17 09:59; Start 05/09/17 at 09:00 Potassium Chloride 50 ml @ 50 mls/hr Q1H IV ; Start 05/09/17 at 08:15; Stop at 10:14; Status Cancel Potassium Chloride 50 ml @ 50 mls/hr DAILY IV Last administered on 05/11/17 08:51; Start 05/10/17 at 09:00; Stop 05/11/17 at 09:59; Status DC Potassium Chloride 50 ml @ 50 mls/hr Q1H IV Last administered on 05/09/17 10: 00; Start 05/09/17 at 09:00; Stop 05/09/17 at 10:59; Status DC Potassium Chloride (Klor-Con) 40 meq 1X ONCE PO ; Start 05/09/17 at 11:00; Stop 05/09/17 at 11:01; Status DC Potassium Chloride/Dextrose/ Sod Cl 1,000 ml @ 75 mls/hr [id number] IV Last administered on 05/10/17 17:58; Start 05/09/17 at 11:00; Stop 05/11/17 at 08 :26; Status DC Calcium Gluconate (Calcium Gluconate) 1,000 mg 1X ONCE IVP Last administered on 05/09/17 14:28; Start 05/09/17 at 14:00; Stop 05/09/17 at 14:01; Status DC Info 1 each PRN DAILY PRN MC SEE COMMENTS Last administered on 05/13/17 11:24 ; Start 05/09/17 at 13:45 Amiodarone HCl 150 mg/Dextrose 103 ml @ 618 mls/hr 1X ONCE IV Last administered on 05/09/17 14:28; Start 05/09/17 at 14:00; Stop 05/09/17 at 14 :09; Status DC Amiodarone HCl (Cordarone) 400 mg BID PO Last administered on 05/13/17 20:58 ; Start 05/09/17 at 21:00 Sodium Chloride 90 meq/Potassium Chloride 50 meq/ Potassium Phosphate 13.6 mmol/ Magnesium Sulfate 10 meq/ Calcium Gluconate 10 meq/ Multivitamins 10 ml/Chromium / Copper/Manganese/ Seleni/Zn 1 ml/ Total Parenteral Nutrition/Amino Acids/ Dextrose/ Fat Emulsion Intravenous 1,387.0013 ml @ 3.625 mls/hr TPN CONT IV ; Start 05/09/17 at 22:00; Status UNV Sodium Chloride 90 meq/Potassium Acetate 70 meq/ Potassium Phosphate 18 mmol/ Magnesium Sulfate 12 meq/Calcium Gluconate 10 meq/ Multivitamins 10 ml/Chromium / Copper/Manganese/ Seleni/Zn 1 ml/ Total Parenteral Nutrition/Amino Acids/ Dextrose/ Fat Emulsion Intravenous 1,512 ml @ 63 mls/hr TPN CONT IV Last administered on 05/09/17 21:39; Start 05/09/17 at 22:00; Stop 05/10/17 at 21 :59; Status DC Magnesium Sulfate/ Dextrose 50 ml @ 25 mls/hr 1X ONCE IV ; Start 05/09/17 at 15:15; Stop 05/09/17 at 17:14; Status DC Procainamide HCl 2000 mg/Dextrose 520 ml @ 31.2 mls/hr CONT PRN IV SEE I/O RECORD Last administered on 05/11/17 21:55; Start 05/09/17 at 16:00; Stop at 11:28; Status DC Procainamide HCl 500 mg/Dextrose 55 ml @ 110 mls/hr 1X ONCE IV Last administered on 05/09/17 15:49; Start 05/09/17 at 15:30; Stop 05/09/17 at 15 :59; Status DC Procainamide HCl 2000 mg/Dextrose 520 ml @ 0 mls/hr CONT PRN IV SEE I/O RECORD ; Start 05/09/17 at 15:45; Status UNV Sodium Phosphate 30 mmol/Dextrose 260 ml @ 65 mls/hr 1X ONCE IV ; Start 05/09 at 17:45; Stop 05/09/17 at 21:44; Status Cancel Sodium Phosphate 20 mmol/Dextrose 256.6667 ml @ 64.167 m... 1X ONCE IV Last administered on 05/09/17 18:10; Start 05/09/17 at 17:45; Stop 05/09/17 at 21 :44; Status DC Magnesium Sulfate/ Dextrose 100 ml @ 100 mls/hr 1X ONCE IV Last administered on 05/10/17 01:48; Start 05/10/17 at 02:00; Stop 05/10/17 at 02:59; Status DC Midazolam HCl (Versed) 1 mg PRN Q2HR PRN IV SEDATION; Start 05/10/17 at 02:30 Midazolam HCl (Versed) 2 mg PRN Q2HR PRN IV SEDATION; Start 05/10/17 at 02:30 Amiodarone HCl 900 mg/Dextrose 518 ml @ 0 mls/hr CONT PRN IV SEE I/O RECORD; Start 05/10/17 at 03:45; Status UNV Amiodarone HCl 450 mg/Dextrose 259 ml @ 17.26 mls/ hr CONT PRN IV SEE I/O RECORD Last administered on 05/11/17 05:43; Start 05/10/17 at 04:00 Lidocaine HCl/ Dextrose 500 ml @ 0 mls/hr CONT PRN IV SEE I/O RECORD Last administered on 05/12/17 05:40; Start 05/10/17 at 04:00; Stop 05/12/17 at 17 :20; Status DC Lidocaine HCl (Lidocaine HCl 2% Abboject) 100 mg 1X ONCE IV Last administered on 05/10/17 04:13; Start 05/10/17 at 04:30; Stop 05/10/17 at 04:31; Status DC Amiodarone HCl (Cordarone) 300 mg STK-MED ONCE .ROUTE ; Start 05/09/17 at 23:00 ; Stop 05/10/17 at 11:00; Status DC Atropine Sulfate 1 mg STK-MED ONCE .ROUTE ; Start 05/09/17 at 23:00; Stop at 11:00; Status DC Epinephrine HCl (EPINEPHrine SYRINGE) 3 mg STK-MED ONCE .ROUTE ; Start at 23:00; Stop 05/10/17 at 11:00; Status DC Lidocaine HCl (Lidocaine HCl 2% Abboject) 100 mg STK-MED ONCE .ROUTE ; Start at 23:00; Stop 05/10/17 at 11:00; Status DC Magnesium Sulfate/ Dextrose (Magnesium Sulfate PREMIX 1GM) 2 gm STK-MED ONCE IV ; Start 05/09/17 at 23:00; Stop 05/10/17 at 11:00; Status DC Potassium Phosphate 13.6 mmol/Dextrose 104.5333 ml @ 52.267 m... ONCE ONCE IV Last administered on 05/10/17 15:54; Start 05/10/17 at 14:00; Stop at 15:59; Status DC Sodium Acetate 90 meq/Potassium Chloride 70 meq/ Potassium Phosphate 20.4 mmol/ Magnesium Sulfate 18 meq/ Calcium Gluconate 10 meq/ Multivitamins 10 ml/Chromium / Copper/Manganese/ Seleni/Zn 1 ml/ Total Parenteral Nutrition/Amino Acids/ Dextrose/ Fat Emulsion Intravenous 1,512 ml @ 63 mls/hr TPN CONT IV Last administered on 05/10/17 22:00; Start 05/10/17 at 22:00; Stop 05/11/17 at 21 :59; Status DC Lidocaine/Sodium Bicarbonate (Buffered Lidocaine 1%) 20 ml STK-MED ONCE IJ ; Start 05/10/17 at 13:45; Stop 05/10/17 at 13:46; Status DC Lidocaine/Sodium Bicarbonate (Buffered Lidocaine 1%) 3 ml 1X ONCE IJ Last administered on 05/10/17 13:45; Start 05/10/17 at 13:45; Stop 05/10/17 at 13 :57; Status DC Sodium Chloride 250 ml @ 250 mls/hr 1X ONCE IV ; Start 05/10/17 at 13:45; Stop 05/10/17 at 14:44; Status DC Albuterol Sulfate (Ventolin Neb Soln) 2.5 mg 1X ONCE NEB Last administered on 05/10/17 19:54; Start 05/10/17 at 20:00; Stop 05/10/17 at 20:01; Status DC Furosemide (Lasix) 40 mg 1X ONCE IVP Last administered on 05/10/17 21:22; Start 05/10/17 at 21:30; Stop 05/10/17 at 21:31; Status DC Dobutamine HCl/ Dextrose 250 ml @ 0 mls/hr CONT PRN IV SEE I/O RECORD Last administered on 05/13/17 20:58; Start 05/10/17 at 21:15 Sodium Acetate 120 meq/Potassium Chloride 70 meq/ Potassium Phosphate 27.2 mmol/ Magnesium Sulfate 22 meq/ Calcium Gluconate 5 meq/ Multivitamins 10 ml/Chromium / Copper/Manganese/ Seleni/Zn 1 ml/ Total Parenteral Nutrition/Amino Acids/ Dextrose/ Fat Emulsion Intravenous 1,512 ml @ 63 mls/hr TPN CONT IV ; Start 05/11/17 at 22:00; Stop 05/12/17 at 21:59; Status Cancel Potassium Phosphate 13.6 mmol/Dextrose 104.5333 ml @ 52.267 m... ONCE ONCE IV Last administered on 05/11/17 13:24; Start 05/11/17 at 13:00; Stop at 14:59; Status DC Sodium Acetate 120 meq/Potassium Chloride 70 meq/ Potassium Phosphate 25 mmol/ Magnesium Sulfate 22 meq/Calcium Gluconate 5 meq/ Multivitamins 10 ml/Chromium/ Copper/Manganese/ Seleni/Zn 1 ml/ Total Parenteral Nutrition/Amino Acids/ Dextrose/ Fat Emulsion Intravenous 1,512 ml @ 63 mls/hr TPN CONT IV Last administered on 05/11/17 21:56; Start 05/11/17 at 22:00; Stop 05/12/17 at 21 :59; Status DC Furosemide (Lasix) 40 mg DAILY IVP Last administered on 05/13/17 08:34; Start 05/12/17 at 09:00 Sodium Acetate 120 meq/Potassium Chloride 70 meq/ Potassium Phosphate 25 mmol/ Magnesium Sulfate 22 meq/Calcium Gluconate 5 meq/ Multivitamins 10 ml/Chromium/ Copper/Manganese/ Seleni/Zn 1 ml/ Total Parenteral Nutrition/Amino Acids/ Dextrose/ Fat Emulsion Intravenous 1,512 ml @ 63 mls/hr TPN CONT IV Last administered on 05/12/17 22:50; Start 05/12/17 at 22:00; Stop 05/13/17 at 21 :59; Status DC Magnesium Sulfate/ Dextrose (Magnesium Sulfate PREMIX 1GM) 2 gm STK-MED ONCE IV ; Start 05/05/17 at 12:00; Stop 05/12/17 at 17:24; Status DC Sodium Acetate 120 meq/Potassium Chloride 70 meq/ Potassium Phosphate 25 mmol/ Magnesium Sulfate 22 meq/Calcium Gluconate 5 meq/ Multivitamins 10 ml/Chromium/ Copper/Manganese/ Seleni/Zn 1 ml/ Sodium Chloride 40 meq/Total Parenteral Nutrition/Amino Acids/Dextrose/ Fat Emulsion Intravenous 1,512 ml @ 63 mls/hr TPN CONT IV Last administered on 05/13/17 23:09; Start 05/13/17 at 22:00; Stop 05/14/17 at 21:59 Iohexol (Omnipaque 240 Mg/ml) 30 ml 1X ONCE PO ; Start 05/14/17 at 09:15; Stop 05/14/17 at 09:16; Status UNV Iohexol (Omnipaque 300 Mg/ml) 75 ml 1X ONCE IV ; Start 05/14/17 at 09:15; Stop 05/14/17 at 09:16; Status UNV Active Scripts Active Reported Levofloxacin 500 Mg Tablet 500 Mg PO DAILY Tramadol Hcl 50 Mg Tablet 50 Mg PO Q6H PRN Ondansetron Hcl 4 Mg Tablet 8 Mg PO BID PRN Ophiem 5-325 Tablet (Acetaminophen/Hydrocodone Bitart) 1 Each Tablet 1-2 Tab PO Q4HRS PRN Atorvastatin Calcium 40 Mg Tablet 1 Tab PO DAILY Metoprolol Tartrate 25 Mg Tablet 1 Tab PO BID Pantoprazole Sodium 40 Mg Tablet.dr 1 Tab PO DAILY Diazepam 5 Mg Tablet 5 Mg PO TID Venlafaxine Hcl Er (Venlafaxine Hcl) 75 Mg Cap.er.24h 75 Mg PO DAILY Synthroid (Levothyroxine Sodium) 75 Mcg Tablet 75 Mcg PO DAILYAC Vitals/I & O Vital Sign - Last 24 Hours 05/13/17 05/13/17 05/13/17 05/13/17 10:00 11:00 12:00 12:00 Temp 98.5 98.5 Pulse 69 74 70 Resp 18 20 18 B/P (MAP) 107/64 (78) 103/58 (73) 81/56 (64) Pulse Ox 97 97 97 O2 Delivery Nasal Cannula Nasal Cannula Nasal Cannula Nasal Cannula O2 Flow Rate 2.0 2.0 2.0 2.0 05/13/17 05/13/17 05/13/17 05/13/17 13:00 14:00 15:00 16:00 Pulse 74 74 76 Resp 18 18 19 B/P (MAP) 91/58 (69) 82/56 (65) 106/76 (86) Pulse Ox 97 97 96 O2 Delivery Nasal Cannula Nasal Cannula Nasal Cannula Nasal Cannula O2 Flow Rate 2.0 2.0 2.0 2.0 05/13/17 05/13/17 05/13/17 05/13/17 16:02 17:00 18:00 19:00 Temp 98.4 98.4 Pulse 75 75 73 72 Resp 20 16 16 21 B/P (MAP) 84/60 (68) 101/62 (75) 119/63 (81) 112/66 (81) Pulse Ox 96 94 93 93 O2 Delivery Nasal Cannula Nasal Cannula Nasal Cannula Nasal Cannula O2 Flow Rate 2.0 2.0 2.0 2.0 05/13/17 05/13/17 05/13/17 05/13/17 20:00 20:00 20:58 21:00 Temp 97.7 97.7 Pulse 72 71 74 Resp 22 B/P (MAP) 130/65 (86) 130/65 134/70 Pulse Ox 94 O2 Delivery Nasal Cannula Room Air O2 Flow Rate 2.0 05/13/17 05/13/17 05/13/17 05/14/17 21:00 22:00 23:00 00:01 Temp 98.4 98.4 Pulse 72 70 68 70 Resp 22 B/P (MAP) 134/70 (91) 127/65 (85) 129/65 (86) 120/64 (82) Pulse Ox 93 93 91 91 O2 Delivery Nasal Cannula Room Air Room Air Room Air O2 Flow Rate 2.0 05/14/17 05/14/17 05/14/17 05/14/17 00:19 01:00 02:00 03:00 Pulse 69 68 68 Resp B/P (MAP) 123/63 (83) 111/61 (78) 118/62 (80) Pulse Ox 91 94 95 O2 Delivery Room Air Room Air Nasal Cannula Nasal Cannula O2 Flow Rate 2.0 2.0 05/14/17 05/14/17 05/14/17 05/14/17 04:00 04:00 05:13 06:00 Temp 98.7 98.7 Pulse 71 70 71 Resp 19 B/P (MAP) 127/59 (81) 125/63 (83) 123/65 (84) Pulse Ox 93 95 96 O2 Delivery Nasal Cannula Nasal Cannula Nasal Cannula Nasal Cannula O2 Flow Rate 2.0 2.0 2.0 2.0 05/14/17 05/14/17 07:00 08:00 Temp 98.6 98.6 Pulse 74 72 Resp 19 B/P (MAP) 131/68 (89) 140/72 (94) Pulse Ox 96 96 O2 Delivery Nasal Cannula Nasal Cannula O2 Flow Rate 2.0 2.0 Intake and Output 05/13/17 05/13/17 05/14/17 15:00 23:00 07:00 Intake Total 1341.57 ml 359 ml Output Total 775 ml 920 ml 290 ml Balance -775 ml 421.57 ml 69 ml Nutrition Consultation Dietary Evaluation: Recommendations by RD: PPN/TPN Comments: Continue current TPN infusion: 225 g dextrose, 60 g AA, 20 g lipid Encouraged some PO intake to maintain gut health Can dc TPN once PO intake meeting > 75% est needs Expected Outcomes/Goals: TPN infusion initiated and meeting > 75% est needs within 24 - 48 hrs - met, ongoing Malnutrition Findings: Food and Nutrition Intake (Mod: <75% est energy req 7days Weight Status: Overweight DANIEL MORALEZ MD May 14, 2017 09:12
[2017-05-14] MEDS: ATORVASTATIN CALCIUM 40 MG TABLET. PO SCH (09:15)
[2017-05-14] MEDS: ACYCLOVIR 200 MG CAPSULE. PO SCH ×3 (09:15→20:40)
[2017-05-14] MEDS ORDERED: CONTRAST GIVEN MC PRN (09:15)
[2017-05-14] MEDS: NYSTATIN 100,000 UNITS/ML 5 ML ORAL.SUSP. SWSW SCH ×4 (09:15→20:40)
[2017-05-14] MEDS: VENLAFAXINE XR 37.5 MG CAP.ER.24H. PO SCH (09:15)
[2017-05-14] MEDS ORDERED: IOHEXOL 300 MG/ML 100ML VIAL. IV ONE (09:15)
[2017-05-14] MEDS ORDERED: IOHEXOL 240 MG/ML 50ML VIAL. PO ONE (09:15)
[2017-05-14] MEDS: AMIODARONE HCL 200 MG TABLET. PO SCH ×2 (09:15→20:39)
[2017-05-14] MEDS: diazePAM 5 MG TABLET PO SCH ×3 (09:15→20:40)
[2017-05-14] MEDS: METOPROLOL TART IMMED RELEASE 25 MG TABLET. PO SCH ×2 (09:16→20:40)
[2017-05-14] MEDS: LEVOTHYROXINE 75 MCG TABLET PO SCH (09:16)
[2017-05-14] MEDS: PANTOPRAZOLE 40 MG TABLET.DR. PO SCH (09:16)
[2017-05-14] MEDS: FUROSEMIDE 40 MG/4 ML VIAL. IVP SCH (09:16)
[2017-05-14] MEDS: TPN PER PHARMACY MC PRN ×2 (12:13→12:20)
--- NOTE | 2017-05-14 12:13 | PDOC ---
PULMONARY PROGRESS NOTES Subjective PT S/P CODE FOR V TACH, HAD SHOCKED MULTIPLE TIMES OFF BIPAP/ON LASIX/DOBUTAMINE DOING BETTER Vitals Vital Signs Date Time Temp Pulse Resp B/P (MAP) Pulse Ox O2 Delivery O2 Flow Rate FiO2 05/14/17 11:00 82 22 121/84 (96) 97 Nasal Cannula 2.0 05/14/17 08:00 98.6 98.6 General: Alert, No acute distress Lungs: Other (decrease bases) Cardiovascular: S1, S2 Abdomen: Soft Neuro Exam: Alert Extremities: Other (1=EDEMA) Skin: Warm Labs Laboratory Tests Test 05/13/17 05:00 05/14/17 05:45 White Blood Count 5.2 x10^3/uL (4.0-11.0) 6.4 x10^3/uL (4.0-11.0) Red Blood Count 2.72 x10^6/uL (3.50-5.40) 2.66 x10^6/uL (3.50-5.40) Hemoglobin 9.3 g/dL (12.0-15.5) 9.1 g/dL (12.0-15.5) Hematocrit 27.1 % (36.0-47.0) 27.0 % (36.0-47.0) Mean Corpuscular Volume 100 fL (79-100) 101 fL (79-100) Mean Corpuscular Hemoglobin 34 pg (25-35) 34 pg (25-35) Mean Corpuscular Hemoglobin Concent 34 g/dL (31-37) 34 g/dL (31-37) Red Cell Distribution Width 21.1 % (11.5-14.5) 20.9 % (11.5-14.5) Platelet Count 69 x10^3/uL (140-400) 89 x10^3/uL (140-400) Neutrophils (%) (Auto) 57 % (31-73) 63 % (31-73) Lymphocytes (%) (Auto) 20 % (24-48) 17 % (24-48) Monocytes (%) (Auto) 22 % (0-9) 20 % (0-9) Eosinophils (%) (Auto) 0 % (0-3) 0 % (0-3) Basophils (%) (Auto) 1 % (0-3) 0 % (0-3) Neutrophils # (Auto) 2.9 x10^3uL (1.8-7.7) 4.0 x10^3uL (1.8-7.7) Lymphocytes # (Auto) 1.0 x10^3/uL (1.0-4.8) 1.1 x10^3/uL (1.0-4.8) Monocytes # (Auto) 1.2 x10^3/uL (0.0-1.1) 1.3 x10^3/uL (0.0-1.1) Eosinophils # (Auto) 0.0 x10^3/uL (0.0-0.7) 0.0 x10^3/uL (0.0-0.7) Basophils # (Auto) 0.0 x10^3/uL (0.0-0.2) 0.0 x10^3/uL (0.0-0.2) Sodium Level 133 mmol/L (136-145) 133 mmol/L (136-145) Potassium Level 4.6 mmol/L (3.5-5.1) 4.3 mmol/L (3.5-5.1) Chloride Level 99 mmol/L (98-107) 98 mmol/L (98-107) Carbon Dioxide Level 29 mmol/L (21-32) 29 mmol/L (21-32) Anion Gap 5 (6-14) 6 (6-14) Blood Urea Nitrogen 15 mg/dL (7-20) 18 mg/dL (7-20) Creatinine 0.9 mg/dL (0.6-1.0) 0.9 mg/dL (0.6-1.0) Estimated GFR (Cockcroft-Gault) 61.2 61.2 BUN/Creatinine Ratio 17 (6-20) Glucose Level 112 mg/dL (70-99) 115 mg/dL (70-99) Calcium Level 7.9 mg/dL (8.5-10.1) 8.1 mg/dL (8.5-10.1) Phosphorus Level 3.7 mg/dL (2.6-4.7) 4.1 mg/dL (2.6-4.7) Magnesium Level 2.1 mg/dL (1.8-2.4) 2.1 mg/dL (1.8-2.4) Total Bilirubin 0.4 mg/dL (0.2-1.0) Aspartate Amino Transf (AST/SGOT) 20 U/L (15-37) Alanine Aminotransferase (ALT/SGPT) 19 U/L (14-59) Alkaline Phosphatase 81 U/L (46-116) Total Protein 5.3 g/dL (6.4-8.2) Albumin 2.1 g/dL (3.4-5.0) Albumin/Globulin Ratio 0.7 (1.0-1.7) Laboratory Tests Test 05/14/17 05:45 White Blood Count 6.4 x10^3/uL (4.0-11.0) Red Blood Count 2.66 x10^6/uL (3.50-5.40) Hemoglobin 9.1 g/dL (12.0-15.5) Hematocrit 27.0 % (36.0-47.0) Mean Corpuscular Volume 101 fL (79-100) Mean Corpuscular Hemoglobin 34 pg (25-35) Mean Corpuscular Hemoglobin Concent 34 g/dL (31-37) Red Cell Distribution Width 20.9 % (11.5-14.5) Platelet Count 89 x10^3/uL (140-400) Neutrophils (%) (Auto) 63 % (31-73) Lymphocytes (%) (Auto) 17 % (24-48) Monocytes (%) (Auto) 20 % (0-9) Eosinophils (%) (Auto) 0 % (0-3) Basophils (%) (Auto) 0 % (0-3) Neutrophils # (Auto) 4.0 x10^3uL (1.8-7.7) Lymphocytes # (Auto) 1.1 x10^3/uL (1.0-4.8) Monocytes # (Auto) 1.3 x10^3/uL (0.0-1.1) Eosinophils # (Auto) 0.0 x10^3/uL (0.0-0.7) Basophils # (Auto) 0.0 x10^3/uL (0.0-0.2) Sodium Level 133 mmol/L (136-145) Potassium Level 4.3 mmol/L (3.5-5.1) Chloride Level 98 mmol/L (98-107) Carbon Dioxide Level 29 mmol/L (21-32) Anion Gap 6 (6-14) Blood Urea Nitrogen 18 mg/dL (7-20) Creatinine 0.9 mg/dL (0.6-1.0) Estimated GFR (Cockcroft-Gault) 61.2 Glucose Level 115 mg/dL (70-99) Calcium Level 8.1 mg/dL (8.5-10.1) Phosphorus Level 4.1 mg/dL (2.6-4.7) Magnesium Level 2.1 mg/dL (1.8-2.4) Medications Active Scripts Medications Dose Route/Sig Max Daily Dose Days Date Category Levofloxacin 500 Mg Tablet 500 Mg PO DAILY 05/05/17 Reported Tramadol Hcl 50 Mg Tablet 50 Mg PO Q6H PRN 05/05/17 Reported Ondansetron Hcl 4 Mg Tablet 8 Mg PO BID PRN 05/05/17 Reported [place] 5-325 Tablet (Acetaminophen/Hydrocodone Bitart) 1 Each Tablet 1-2 Tab PO Q4HRS PRN 10/19/16 Reported Atorvastatin Calcium 40 Mg Tablet 1 Tab PO DAILY 10/18/15 Reported Metoprolol Tartrate 25 Mg Tablet 1 Tab PO BID 10/18/15 Reported Pantoprazole Sodium 40 Mg Tablet.dr 1 Tab PO DAILY 04/26/15 Reported Diazepam 5 Mg Tablet 5 Mg PO TID 03/07/15 Reported Venlafaxine Hcl Er (Venlafaxine Hcl) 75 Mg Cap.er.24h 75 Mg PO DAILY 03/07/15 Reported Synthroid (Levothyroxine Sodium) 75 Mcg Tablet 75 Mcg PO DAILYAC 03/07/15 Reported Impression . 1. Progressive dyspnea, multifactorial secondary to CHF, weakness from her recent chemotherapy and toxicities/ NEW CM EF 25 % 2. Stage 4 Colon cancer. 3. Leukopenia/ thrombocytopenia secondary to chemotherapy.much improved 4. Thrombocytopenia.improving 5. Acute renal failure, improved 6. Urinary tract infection. 7. Protein malnutrition present upon admission. 8. CODE BLUE ,V- TACH PER DR ASHRAF 9. Mild interstitial edema Plan . CLINICALLY IMPROVING ON DOBUTAMINE/ LASIX F/U CXR NEEDED CATH TODAY BLOOD COUNTS IMPROVING FOLLOW HEME INPUT SUPPORTIVE CARE D/W FAMILY NEEDS PT MG MCKENNA MD May 14, 2017 12:13
[2017-05-14] MEDS ORDERED: LIDOCAINE 2% 20 ML VIAL. ONE (12:17)
[2017-05-14] MEDS ORDERED: IOHEXOL 300 MG/ML 100ML VIAL. ONE (12:17)
[2017-05-14] MEDS ORDERED: MIDAZOLAM HCL/PF 2 MG/2 ML VIAL. ONE (12:56)
[2017-05-14] MEDS ORDERED: fentaNYL PF VIAL 100 MCG/2 ML VIAL ONE (12:56)
[2017-05-14 13:12] LABS: INR 1.2 (0.8-1.1); PROTHROMBIN TIME PATIENT 14.6 SEC (11.7-14.0)
[2017-05-14] MEDS ORDERED: LIDOCAINE 2% 20 ML VIAL. IJ ONE (13:30)
[2017-05-14] MEDS ORDERED: MIDAZOLAM HCL/PF 2 MG/2 ML VIAL. IV ONE (13:30)
[2017-05-14] MEDS ORDERED: IOHEXOL 300 MG/ML 100ML VIAL. IART ONE (13:30)
--- NOTE | 2017-05-14 16:00 | CARD ---
APPROVED REPORT Procedure(s) performed: moderate sedation: 25 minutes HISTORY The patient is a 72 year-old female with a history of : hypertension, Pt with a recent cardiac arrest with multiple episodes of V-Tach that has a cardiomyopathy and needs evaluation for the etiology.. INDICATION The indication(s) include : arrhythmia. CASE TECHNIQUE The patient was brought electively into the cardiac catheterization lab. A timeout was performed conf irming the patient's name, date of , procedure, and site of procedure. All necessary parties wer e wearing the appropriate personal protective equipment and radiation monitoring devices. After expla ining the risks and benefits of the procedure, informed consent was obtained.(See nursing notes for m edications administered). The right groin was sterilely prepped and draped. The right femoral groin w as infiltrated with 2% Lidocaine subcutaneous anesthesia. During this case, Fluoroscopy and low osmol ar contrast were used for imaging. A sheath was inserted into the right femoral artery without diffic ulty. Coronary angiography was performed using coronary diagnostic catheters. The left coronary syste m was accessed and visualized with a Diagnostic catheter. The right coronary system was accessed and visualized with a Diagnostic catheter. The left ventricle was accessed and visualized with a Diagnost ic catheter. Left ventricular/Aortic Valve gradient assessed on pullback. Left ventriculogram was per formed in BRYAN projection. Pre-demployment femoral angiogram was performed . Closure device was deploy ed with a Angioseal without any complications. The patient tolerated the procedure well and there wer e no complications associated with the procedure. Coronary Angiography The patient's coronary anatomy is right dominant. The left main coronary artery is a large size vessel free of disease. The left main bifurcates to the left anterior descending and circumflex. The left anterior descending artery is a large size vessel free of disease. The first diagonal branch is a medium size vessel free of disease. The second diagonal branch is a small size vessel free of d isease. The circumflex artery is a medium size vessel free of disease. The first obtuse marginal branch is a small size vessel free of disease. The second obtuse marginal branch is a small size vessel free of d isease. The third obtuse marginal branch is a small size vessel free of disease. The right coronary artery is a medium size vessel free of disease. The right posterior descending art otis is a small size vessel free of disease. The right posterolateral branch is a small size vessel fr ee of disease. Left Ventriculography The left ventricle is normal in size with decreased contractility. The left ventricular ejection frac tion is estimated to be 40%. The left ventricular end diastolic pressure is 12 mmHg. There was no gra dient across the aortic valve upon pullback. This is an improvement in the left ventricular ejection fraction that in the echocardiogram was estimated to be 27% Conclusion This patient that his post-arrest and has a stage IV colon cancer. She does not have any significant coronary artery disease and the left ventricular ejection fraction appears to be improving. In view of this I think that the dysrhythmias may have been secondary to the metabolic acidosis and t he hypokalemia that the patient had at the time of the arrest and that the decrease in the left ventr icular function was secondary to a stunning of the myocardium. In view of that I would recommend medical treatment for the patient for now and then depending on her progression as well as the progression of the left ventricular function then decide on whether the p atient needs to have a defibrillator or not. If she is a terminal cancer patient I would not recommend a defibrillator for her. Will be discussed with the patient and the family. Recommendations Medical Therapy
[2017-05-14] MEDS: traMADol 50 MG TABLET PO PRN (20:41)
[2017-05-14] MEDS ORDERED: TOTAL PARENTERAL NUTRITION IV SCH ×11 (22:00)
[2017-05-14] MEDS ORDERED: [UNRECOGNIZED DRUG - OTHER] IV SCH ×11 (22:00)
[2017-05-14] MEDS ORDERED: DEXTROSE 70% IV SCH ×11 (22:00)
[2017-05-14] MEDS ORDERED: AMINO ACIDS IV SCH ×11 (22:00)
[2017-05-15 03:05] VITALS: BP 152/68
[2017-05-15 07:00] VITALS: BP 118/64
[2017-05-15] MEDS ORDERED: IOHEXOL 240 MG/ML 50ML VIAL. PO ONE (08:00)
[2017-05-15] MEDS ORDERED: CONTRAST GIVEN MC PRN ×2 (08:15→09:30)
[2017-05-15] MEDS: NYSTATIN 100,000 UNITS/ML 5 ML ORAL.SUSP. SWSW SCH ×5 (09:00→21:04)
[2017-05-15] MEDS ORDERED: IOHEXOL 300 MG/ML 100ML VIAL. IV ONE (09:30)
[2017-05-15] MEDS: PANTOPRAZOLE 40 MG TABLET.DR. PO SCH (09:46)
[2017-05-15] MEDS: LEVOTHYROXINE 75 MCG TABLET PO SCH (09:46)
[2017-05-15] MEDS: diazePAM 5 MG TABLET PO SCH ×3 (09:46→21:02)
[2017-05-15] MEDS: AMIODARONE HCL 200 MG TABLET. PO SCH ×2 (09:46→21:03)
[2017-05-15] MEDS: ACYCLOVIR 200 MG CAPSULE. PO SCH ×3 (09:47→21:04)
[2017-05-15] MEDS: FUROSEMIDE 40 MG/4 ML VIAL. IVP SCH (09:47)
[2017-05-15] MEDS: VENLAFAXINE XR 37.5 MG CAP.ER.24H. PO SCH (10:04)
[2017-05-15] MEDS: METOPROLOL TART IMMED RELEASE 25 MG TABLET. PO SCH ×2 (10:04→21:03)
[2017-05-15] MEDS: ATORVASTATIN CALCIUM 40 MG TABLET. PO SCH (10:04)
--- NOTE | 2017-05-15 10:24 | RAD ---
PQRS Compliance Statement: One or more of the following individualized dose reduction techniques were utilized for this examination: 1. Automated exposure control 2. Adjustment of the mA and/or kV according to patient size 3. Use of iterative reconstruction technique CT CHEST ABD PELVIS W/CONTRAST Clinical Indication: restaging colon cancer Comparison: CT chest abdomen pelvis with contrast 06/04/2016. Technique: Helical CT imaging of the chest abdomen and pelvis is performed after oral contrast and 75 cc of Omnipaque 300 IV contrast. Findings: There is right IJ central line, tip in the right atrium. There is left chest Port-A-Cath, tip in upper SVC. No mediastinal adenopathy. Great vessels stable. Cardiac size normal, no pericardial effusion. Coronary artery disease. Small bilateral pleural effusions. Central airways are patent. Mild respiratory motion artifact. There are consolidations with air bronchograms in the bilateral lower lobes. There are patchy groundglass opacities in the bilateral upper lobes and in the lingula. There are 4 stable small hypodensities in the liver. Gallbladder, spleen, and adrenal glands are normal. Stable prominent fat lobule in the pancreas body. No peripancreatic inflammation. Abdominal aorta is normal caliber. The left kidney is normal. The right kidney is atrophic. Right hydronephrosis is no longer seen. No obvious abnormality of the stomach. There is fluid-filled rectal stump. There is left lower quadrant ostomy. There has been interval distal colon resection. The descending colon is decompressed accentuating the wall thickness. Short segment of the transverse colon is narrowed but may be due to peristalsis, image 34. There is no dilated small bowel. Periumbilical hernia is no longer seen. Urinary bladder contains contrast likely from prior day heart catheterization. Cystic and solid pelvic mass on the prior study is no longer seen. There is no pelvic free fluid. No osteolytic or blastic lesion is identified. There is minimal grade 1 anterolisthesis of L3 on L4. Bilateral L5 is sacralized. IMPRESSION: 1. Small bilateral pleural effusions. 2. Consolidations with air bronchograms in the bilateral lower lobes may be pneumonia or aspiration. 3. Patchy groundglass opacities in the bilateral upper lobes appear infectious/inflammatory. 4. No evidence of metastatic disease in the abdomen or pelvis. 5. Atrophic right kidney.
--- NOTE | 2017-05-15 10:50 | PDOC ---
PULMONARY PROGRESS NOTES Subjective PT S/P CODE FOR V TACH, HAD SHOCKED MULTIPLE TIMES OFF BIPAP/ OFF DOBUTAMINE S/P CATH/ NORMAL CORONARIES/ EF BETTER 40% NOT EATING WELL Vitals Vital Signs Date Time Temp Pulse Resp B/P (MAP) Pulse Ox O2 Delivery O2 Flow Rate FiO2 05/15/17 10:04 62 118/64 05/15/17 08:01 Nasal Cannula 2.0 05/15/17 07:00 97.6 20 98 97.6 General: Alert, No acute distress Lungs: Other (decrease bases) Cardiovascular: S1, S2 Abdomen: Soft Neuro Exam: Alert Extremities: Other (1=EDEMA) Skin: Warm Labs Laboratory Tests Test 05/14/17 05:45 05/14/17 12:40 White Blood Count 6.4 x10^3/uL (4.0-11.0) Red Blood Count 2.66 x10^6/uL (3.50-5.40) Hemoglobin 9.1 g/dL (12.0-15.5) Hematocrit 27.0 % (36.0-47.0) Mean Corpuscular Volume 101 fL (79-100) Mean Corpuscular Hemoglobin 34 pg (25-35) Mean Corpuscular Hemoglobin Concent 34 g/dL (31-37) Red Cell Distribution Width 20.9 % (11.5-14.5) Platelet Count 89 x10^3/uL (140-400) Neutrophils (%) (Auto) 63 % (31-73) Lymphocytes (%) (Auto) 17 % (24-48) Monocytes (%) (Auto) 20 % (0-9) Eosinophils (%) (Auto) 0 % (0-3) Basophils (%) (Auto) 0 % (0-3) Neutrophils # (Auto) 4.0 x10^3uL (1.8-7.7) Lymphocytes # (Auto) 1.1 x10^3/uL (1.0-4.8) Monocytes # (Auto) 1.3 x10^3/uL (0.0-1.1) Eosinophils # (Auto) 0.0 x10^3/uL (0.0-0.7) Basophils # (Auto) 0.0 x10^3/uL (0.0-0.2) Sodium Level 133 mmol/L (136-145) Potassium Level 4.3 mmol/L (3.5-5.1) Chloride Level 98 mmol/L (98-107) Carbon Dioxide Level 29 mmol/L (21-32) Anion Gap 6 (6-14) Blood Urea Nitrogen 18 mg/dL (7-20) Creatinine 0.9 mg/dL (0.6-1.0) Estimated GFR (Cockcroft-Gault) 61.2 Glucose Level 115 mg/dL (70-99) Calcium Level 8.1 mg/dL (8.5-10.1) Phosphorus Level 4.1 mg/dL (2.6-4.7) Magnesium Level 2.1 mg/dL (1.8-2.4) Prothrombin Time 14.6 SEC (11.7-14.0) Prothromb Time International Ratio 1.2 (0.8-1.1) Laboratory Tests Test 05/14/17 12:40 Prothrombin Time 14.6 SEC (11.7-14.0) Prothromb Time International Ratio 1.2 (0.8-1.1) Medications Active Scripts Medications Dose Route/Sig Max Daily Dose Days Date Category Levofloxacin 500 Mg Tablet 500 Mg PO DAILY 05/05/17 Reported Tramadol Hcl 50 Mg Tablet 50 Mg PO Q6H PRN 05/05/17 Reported Ondansetron Hcl 4 Mg Tablet 8 Mg PO BID PRN 05/05/17 Reported [place] 5-325 Tablet (Acetaminophen/Hydrocodone Bitart) 1 Each Tablet 1-2 Tab PO Q4HRS PRN 10/19/16 Reported Atorvastatin Calcium 40 Mg Tablet 1 Tab PO DAILY 10/18/15 Reported Metoprolol Tartrate 25 Mg Tablet 1 Tab PO BID 10/18/15 Reported Pantoprazole Sodium 40 Mg Tablet.dr 1 Tab PO DAILY 04/26/15 Reported Diazepam 5 Mg Tablet 5 Mg PO TID 03/07/15 Reported Venlafaxine Hcl Er (Venlafaxine Hcl) 75 Mg Cap.er.24h 75 Mg PO DAILY 03/07/15 Reported Synthroid (Levothyroxine Sodium) 75 Mcg Tablet 75 Mcg PO DAILYAC 03/07/15 Reported Impression . 1. Progressive dyspnea POA, multifactorial secondary to CHF, weakness from her recent chemotherapy and toxicities/ NEW CM EF 25 %. 2. Stage 4 Colon cancer. 3. Leukopenia/ thrombocytopenia secondary to chemotherapy.much improved 4. Thrombocytopenia.improving 5. Acute renal failure, improved 6. Urinary tract infection. 7. Protein malnutrition present upon admission. 8. CODE BLUE ,V- TACH PER DR ASHRAF 9. Mild interstitial edema POA Plan . CLINICALLY IMPROVING OFF DOBUTAMINE S/P CATH 05/14. NO SIG CAD, EF IMPROVED TO 40% CT CHEST 05/15 REVIEWED. GG INFILTRATES IN UPPER LOBES, ? INFLAMMATORY AND SUSPECT RELATED TO AMIODARONE/ HAS BEEN ON HIGH DOSE AMIODARONE/ BASAL INFILTRATES/ ATELECTASIS/ HAS ALREADY BEEN TREATED WITH ROCEPHIN/DOXY. WILL HOLD ANY FURTHER ANTIBIOTICS F/U CXR NEEDED BLOOD COUNTS IMPROVING FOLLOW HEME INPUT SUPPORTIVE CARE MG MCKENNA MD May 15, 2017 10:50
[2017-05-15 11:00] VITALS: BP 158/79
--- NOTE | 2017-05-15 11:33 | PDOC ---
GENERAL General: vss and afebrile. mouth almost cleared. no further v-tach. cardiac cath yesterday without cad and improvement in ejection fraction to 40%. remains on amiodarone. chest still sore from code earlier in stay and has some cough. heart regular and abdomen benign. TPN still running and still less than optimal po intake. therapy notes reviewed and will need [place] and will have social workers start working on same. otherwise continue same. encouraged increased activity and eating. Problems: VITAL SIGNS Vital Signs: Vital Signs Date Time Temp Pulse Resp B/P (MAP) Pulse Ox O2 Delivery O2 Flow Rate FiO2 05/15/17 11:00 97.6 63 21 158/79 (105) 96 Nasal Cannula 2.0 97.6 I & O I & O Intake and Output 05/15/17 06:59 Intake Total 100 ml Output Total 1670 ml Balance -1570 ml Intake Oral 100 ml Output Urine Total 1420 ml Stool Total 250 ml ALLERGIES Allergies: Allergies Coded Allergies Type Severity Reaction Last Updated Verified codeine Adverse Reaction Intermediate Patient states hallucinations 10/19/16 Yes MEDS Medications: Current Medications Medications (Trade) Dose Ordered Sig/Fannie Start Time Stop Time Status Last Admin Dose Admin Acyclovir (Zovirax) 400 mg [id number] 05/06/17 09:00 05/15/17 09:47 400 MG Albuterol Sulfate (Ventolin Neb Soln) 2.5 mg 1X ONCE 05/10/17 20:00 05/10/17 20:01 DC 05/10/17 19:54 2.5 MG Amiodarone HCl (Cordarone) 300 mg STK-MED ONCE 05/09/17 23:00 05/10/17 11:00 DC Amiodarone HCl 150 mg/Dextrose 103 ml @ 618 mls/hr 1X ONCE 05/09/17 14:00 05/09/17 14:09 DC 05/09/17 14:28 618 MLS/HR Amiodarone HCl 450 mg/Dextrose 259 ml @ 17.26 mls/ hr CONT PRN 05/10/17 04:00 05/11/17 05:43 17.26 MLS/HR Amiodarone HCl 900 mg/Dextrose 518 ml @ 0 mls/hr CONT PRN 05/10/17 03:45 UNV Atorvastatin Calcium (Lipitor) 40 mg DAILY 05/06/17 09:00 05/15/17 10:04 40 MG Atropine Sulfate 1 mg STK-MED ONCE 05/09/17 23:00 05/10/17 11:00 DC Calcium Gluconate (Calcium Gluconate) 1,000 mg 1X ONCE 05/09/17 14:00 05/09/17 14:01 DC 05/09/17 14:28 1,000 MG Ceftriaxone Sodium 1 gm/ Dextrose 50 ml @ 100 mls/hr Q24H 05/15/17 11:00 05/15/17 11:01 DC Ceftriaxone Sodium (Rocephin) 1 gm Q24H 05/05/17 18:00 05/13/17 08:09 DC 05/12/17 17:46 1 GM Diazepam (Valium) 5 mg TID 05/05/17 21:00 05/15/17 09:46 5 MG Dobutamine HCl/ Dextrose 250 ml @ 0 mls/hr CONT PRN 05/10/17 21:15 05/13/17 20:58 5.756 MLS/HR Doxycycline Hyclate (Vibra-Tab) 100 mg BID 05/06/17 14:00 05/12/17 07:50 DC 05/11/17 21:01 100 MG Epinephrine HCl (EPINEPHrine SYRINGE) 3 mg STK-MED ONCE 05/09/17 23:00 05/10/17 11:00 DC Fentanyl Citrate (Fentanyl 2ml Vial) 100 mcg STK-MED ONCE 05/14/17 12:56 05/14/17 12:57 DC Furosemide (Lasix) 40 mg DAILY 05/12/17 09:00 05/15/17 09:47 40 MG Heparin Sodium/ Sodium Chloride 1,000 unit 1X ONCE 05/14/17 13:30 05/14/17 13:37 DC 05/14/17 13:30 1,000 UNIT Info (Do NOT chart on this entry -- for MONITORING) 1 each PRN DAILY PRN 05/15/17 09:30 05/17/17 09:29 Iohexol (Omnipaque 240 Mg/ml) 50 ml 1X ONCE 05/15/17 08:00 05/15/17 08:10 DC 05/15/17 08:00 50 ML Iohexol (Omnipaque 300 Mg/ml) 75 ml 1X ONCE 05/15/17 09:30 05/15/17 09:31 DC 05/15/17 09:34 75 ML Levothyroxine Sodium (Synthroid) 75 mcg DAILYAC 05/06/17 07:30 05/15/17 09:46 75 MCG Lidocaine HCl 20 ml 1X ONCE 05/14/17 13:30 05/14/17 13:37 DC 05/14/17 13:30 20 ML Lidocaine HCl (Lidocaine HCl 2% Abboject) 100 mg STK-MED ONCE 05/09/17 23:00 05/10/17 11:00 DC Lidocaine HCl/ Dextrose 500 ml @ 0 mls/hr CONT PRN 05/10/17 04:00 05/12/17 17:20 DC 05/12/17 05:40 15 MLS/HR Lidocaine/Sodium Bicarbonate (Buffered Lidocaine 1%) 3 ml 1X ONCE 05/10/17 13:45 05/10/17 13:57 DC 05/10/17 13:45 3 ML Magnesium Sulfate/ Dextrose (Magnesium Sulfate PREMIX 1GM) 2 gm STK-MED ONCE 05/05/17 12:00 05/12/17 17:24 DC Metoprolol Tartrate (Lopressor) 25 mg BID 05/05/17 21:00 05/15/17 10:04 25 MG Midazolam HCl (Versed) 1 mg 1X ONCE 05/14/17 13:30 05/14/17 13:37 DC 05/14/17 13:30 1 MG Multi-Ingredient Mouthwash/Gargle (Magic Mouthwash) 10 ml PRN QID PRN 05/07/17 09:00 05/08/17 10:12 10 ML Nystatin 5 ml [id number] 05/07/17 13:00 05/14/17 20:40 5 ML Ondansetron HCl (Zofran Odt) 8 mg PRN Q12HRS PRN 05/05/17 18:30 05/11/17 11:52 8 MG Pantoprazole Sodium (Protonix) 40 mg DAILY 05/06/17 09:00 05/15/17 09:46 40 MG Potassium Chloride/Dextrose/ Sod Cl 1,000 ml @ 75 mls/hr [id number] 05/09/17 11:00 05/11/17 08:26 DC 05/10/17 17:58 75 MLS/HR Potassium Chloride/Sodium Chloride 1,000 ml @ 80 mls/hr [id number] 05/08/17 17:30 05/09/17 18:27 DC 05/09/17 05:49 80 MLS/HR Potassium Phosphate 13.6 mmol/Dextrose 104.5333 ml @ 52.267 m... ONCE ONCE 05/11/17 13:00 05/11/17 14:59 DC 05/11/17 13:24 52.267 MLS/HR Potassium Chloride (Klor-Con) 40 meq 1X ONCE 05/09/17 11:00 05/09/17 11:01 DC Procainamide HCl 500 mg/Dextrose 55 ml @ 110 mls/hr 1X ONCE 05/09/17 15:30 05/09/17 15:59 DC 05/09/17 15:49 110 MLS/HR Procainamide HCl 2000 mg/Dextrose 520 ml @ 0 mls/hr CONT PRN 05/09/17 15:45 UNV Sodium Acetate 120 meq/Potassium Chloride 70 meq/ Potassium Phosphate 18 mmol/ Magnesium Sulfate 22 meq/Calcium Gluconate 5 meq/ Multivitamins 10 ml/Chromium/ Copper/Manganese/ Seleni/Zn 1 ml/ Sodium Chloride 40 meq/Total Parenteral Nutrition/Amino Acids/Dextrose/ Fat Emulsion Intravenous 1,512 ml @ 63 mls/hr TPN CONT 05/14/17 22:00 05/15/17 21:59 05/14/17 20:42 63 MLS/HR Sodium Acetate 120 meq/Potassium Chloride 70 meq/ Potassium Phosphate 25 mmol/ Magnesium Sulfate 22 meq/Calcium Gluconate 5 meq/ Multivitamins 10 ml/Chromium/ Copper/Manganese/ Seleni/Zn 1 ml/ Sodium Chloride 40 meq/Total Parenteral Nutrition/Amino Acids/Dextrose/ Fat Emulsion Intravenous 1,512 ml @ 63 mls/hr TPN CONT 05/13/17 22:00 05/14/17 21:59 DC 05/13/17 23:09 63 MLS/HR Sodium Acetate 120 meq/Potassium Chloride 70 meq/ Potassium Phosphate 25 mmol/ Magnesium Sulfate 22 meq/Calcium Gluconate 5 meq/ Multivitamins 10 ml/Chromium/ Copper/Manganese/ Seleni/Zn 1 ml/ Total Parenteral Nutrition/Amino Acids/Dextrose/ Fat Emulsion Intravenous 1,512 ml @ 63 mls/hr TPN CONT 05/12/17 22:00 05/13/17 21:59 DC 05/12/17 22:50 63 MLS/HR Sodium Acetate 120 meq/Potassium Chloride 70 meq/ Potassium Phosphate 27.2 mmol/Magnesium Sulfate 22 meq/ Calcium Gluconate 5 meq/ Multivitamins 10 ml/Chromium/ Copper/Manganese/ Seleni/Zn 1 ml/ Total Parenteral Nutrition/Amino Acids/Dextrose/ Fat Emulsion Intravenous 1,512 ml @ 63 mls/hr TPN CONT 05/11/17 22:00 05/12/17 21:59 Cancel Sodium Acetate 90 meq/Potassium Chloride 70 meq/ Potassium Phosphate 20.4 mmol/Magnesium Sulfate 18 meq/ Calcium Gluconate 10 meq/ Multivitamins 10 ml/Chromium/ Copper/Manganese/ Seleni/Zn 1 ml/ Total Parenteral Nutrition/Amino Acids/Dextrose/ Fat Emulsion Intravenous 1,512 ml @ 63 mls/hr TPN CONT 05/10/17 22:00 05/11/17 21:59 DC 05/10/17 22:00 63 MLS/HR Sodium Bicarbonate 100 meq 1X ONCE 05/08/17 15:30 05/08/17 15:31 DC 05/08/17 16:52 100 MEQ Sodium Chloride 250 ml @ 250 mls/hr 1X ONCE 05/10/17 13:45 05/10/17 14:44 DC Sodium Chloride 90 meq/Potassium Acetate 70 meq/ Potassium Phosphate 18 mmol/ Magnesium Sulfate 12 meq/Calcium Gluconate 10 meq/ Multivitamins 10 ml/Chromium/ Copper/Manganese/ Seleni/Zn 1 ml/ Total Parenteral Nutrition/Amino Acids/Dextrose/ Fat Emulsion Intravenous 1,512 ml @ 63 mls/hr TPN CONT 05/09/17 22:00 05/10/17 21:59 DC 05/09/17 21:39 63 MLS/HR Sodium Chloride 90 meq/Potassium Chloride 50 meq/ Potassium Phosphate 13.6 mmol/Magnesium Sulfate 10 meq/ Calcium Gluconate 10 meq/ Multivitamins 10 ml/Chromium/ Copper/Manganese/ Seleni/Zn 1 ml/ Total Parenteral Nutrition/Amino Acids/Dextrose/ Fat Emulsion Intravenous 1,387.0013 ml @ 3.625 mls/hr TPN CONT 05/09/17 22:00 UNV Sodium Phosphate 20 mmol/Dextrose 256.6667 ml @ 64.167 m... 1X ONCE 05/09/17 17:45 05/09/17 21:44 DC 05/09/17 18:10 64.167 MLS/HR Sodium Phosphate 30 mmol/Dextrose 260 ml @ 65 mls/hr 1X ONCE 05/09/17 17:45 05/09/17 21:44 Cancel Tramadol HCl (Ultram) 50 mg PRN Q6HRS PRN 05/05/17 18:15 05/14/17 20:41 50 MG Vancomycin HCl 1 each 1X ONCE 05/07/17 19:00 05/07/17 19:01 Cancel Vancomycin HCl (Vanco Per Pharmacy) 1 each PRN DAILY PRN 05/05/17 18:00 05/06/17 13:10 DC 05/06/17 12:53 1 EACH Vancomycin HCl 1.75 gm/Dextrose 500 ml @ 250 mls/hr 1X ONCE 05/05/17 18:30 05/05/17 20:29 DC 05/05/17 19:21 250 MLS/HR Vancomycin HCl 1 gm/Dextrose 250 ml @ 250 mls/hr Q24H 05/06/17 19:30 05/06/17 19:30 DC Venlafaxine HCl (Effexor Xr) 75 mg DAILY 05/06/17 09:00 05/15/17 10:04 75 MG LAB Lab: Laboratory Tests Test 05/14/17 12:40 Prothrombin Time 14.6 SEC (11.7-14.0) Prothromb Time International Ratio 1.2 (0.8-1.1) Nutrition Consultation Dietary Evaluation: Recommendations by RD: Increase Calorie Intake, PPN/TPN Comments: Continue current TPN infusion: 225 g dextrose, 60 g AA, 20 g lipid Encouraged continued improving PO intake Can dc TPN once PO intake meeting > 65% est needs Expected Outcomes/Goals: TPN infusion initiated and meeting > 75% est needs within 24 - 48 hrs - met, new goal established 05/14 05/14: Goal - TPN and PO intake to meet > 75% est needs Malnutrition Findings: Food and Nutrition Intake (Mod: <75% est energy req 7days Weight Status: Overweight [email or web address] MD May 15, 2017 11:33
--- NOTE | 2017-05-15 12:52 | PDOC ---
PROGRESS NOTES Subjective Subjective She feels very weak. Complaints of some chest pains. Objective Objective Vital Signs Date Time Temp Pulse Resp B/P (MAP) Pulse Ox O2 Delivery O2 Flow Rate FiO2 05/15/17 11:00 97.6 63 21 158/79 (105) 96 Nasal Cannula 2.0 97.6 Intake and Output 05/16/17 07:00 Intake Total 75 ml Output Total 850 ml Balance -775 ml Intake Oral 75 ml Output Urine Total 775 ml Stool Total 75 ml Physical Exam Physical Exam No significant changes in cardiac exam Assessment Assessment H and continues in sinus rhythm. I would continue with the present dose of amiodarone 400 mg by mouth twice a day for 7 more days and then decrease it to 200 mg once a day. The patient's chest pain is due to her broken ribs from the CPR that was done. Comment Review of Relevant I have reviewed the following items armida (where applicable) has been applied. Labs Laboratory Tests Test 05/14/17 05:45 05/14/17 12:40 White Blood Count 6.4 x10^3/uL (4.0-11.0) Red Blood Count 2.66 x10^6/uL (3.50-5.40) Hemoglobin 9.1 g/dL (12.0-15.5) Hematocrit 27.0 % (36.0-47.0) Mean Corpuscular Volume 101 fL (79-100) Mean Corpuscular Hemoglobin 34 pg (25-35) Mean Corpuscular Hemoglobin Concent 34 g/dL (31-37) Red Cell Distribution Width 20.9 % (11.5-14.5) Platelet Count 89 x10^3/uL (140-400) Neutrophils (%) (Auto) 63 % (31-73) Lymphocytes (%) (Auto) 17 % (24-48) Monocytes (%) (Auto) 20 % (0-9) Eosinophils (%) (Auto) 0 % (0-3) Basophils (%) (Auto) 0 % (0-3) Neutrophils # (Auto) 4.0 x10^3uL (1.8-7.7) Lymphocytes # (Auto) 1.1 x10^3/uL (1.0-4.8) Monocytes # (Auto) 1.3 x10^3/uL (0.0-1.1) Eosinophils # (Auto) 0.0 x10^3/uL (0.0-0.7) Basophils # (Auto) 0.0 x10^3/uL (0.0-0.2) Sodium Level 133 mmol/L (136-145) Potassium Level 4.3 mmol/L (3.5-5.1) Chloride Level 98 mmol/L (98-107) Carbon Dioxide Level 29 mmol/L (21-32) Anion Gap 6 (6-14) Blood Urea Nitrogen 18 mg/dL (7-20) Creatinine 0.9 mg/dL (0.6-1.0) Estimated GFR (Cockcroft-Gault) 61.2 Glucose Level 115 mg/dL (70-99) Calcium Level 8.1 mg/dL (8.5-10.1) Phosphorus Level 4.1 mg/dL (2.6-4.7) Magnesium Level 2.1 mg/dL (1.8-2.4) Prothrombin Time 14.6 SEC (11.7-14.0) Prothromb Time International Ratio 1.2 (0.8-1.1) Microbiology 05/06/17 Urine Culture - Final, Complete 05/06/17 Urine Culture Result 1 (MARINE) - Final, Complete Medications Current Medications Ceftriaxone Sodium 1 gm/ Dextrose 50 ml @ 100 mls/hr Q24H IV ; Start 05/05/17 at 18:00; Status UNV Vancomycin HCl (Vanco Per Pharmacy) 1 each PRN DAILY PRN MC SEE COMMENTS Last administered on 05/06/17 12:53; Start 05/05/17 at 18:00; Stop 05/06/17 at 13:10 ; Status DC Ceftriaxone Sodium (Rocephin) 1 gm Q24H IVP Last administered on 05/12/17 17: 46; Start 05/05/17 at 18:00; Stop 05/13/17 at 08:09; Status DC Sodium Chloride 1,000 ml @ 75 mls/hr [id number] IV Last administered on 04:20; Start 05/05/17 at 18:15; Stop 05/08/17 at 13:44; Status DC Atorvastatin Calcium (Lipitor) 40 mg DAILY PO Last administered on 05/15/17 10:04; Start 05/06/17 at 09:00 Diazepam (Valium) 5 mg TID PO Last administered on 05/15/17 09:46; Start 05/05/17 at 21:00 Levothyroxine Sodium (Synthroid) 75 mcg DAILYAC PO Last administered on 09:46; Start 05/06/17 at 07:30 Metoprolol Tartrate (Lopressor) 25 mg BID PO Last administered on 05/15/17 10 :04; Start 05/05/17 at 21:00 Pantoprazole Sodium (Protonix) 40 mg DAILY PO Last administered on 05/15/17 09:46; Start 05/06/17 at 09:00 Tramadol HCl (Ultram) 50 mg PRN Q6HRS PRN PO PAIN Last administered on 20:41; Start 05/05/17 at 18:15 Ondansetron HCl (Zofran Odt) 8 mg PRN Q12HRS PRN PO NAUSEA/VOMITING Last administered on 05/11/17 11:52; Start 05/05/17 at 18:30 Venlafaxine HCl (Effexor Xr) 75 mg DAILY PO Last administered on 05/15/17 10: 04; Start 05/06/17 at 09:00 Vancomycin HCl 1.75 gm/Dextrose 500 ml @ 250 mls/hr 1X ONCE IV Last administered on 05/05/17 19:21; Start 05/05/17 at 18:30; Stop 05/05/17 at 20:29 ; Status DC Vancomycin HCl 1 gm/Dextrose 250 ml @ 250 mls/hr Q24H IV ; Start 05/06/17 at 19 :30; Stop 05/06/17 at 19:30; Status DC Vancomycin HCl 1 each 1X ONCE MC ; Start 05/07/17 at 19:00; Stop 05/07/17 at 19:01; Status Cancel Acyclovir (Zovirax) 400 mg [id number] PO Last administered on 05/15/17 09:47; Start 05/06/17 at 09:00 Doxycycline Hyclate (Vibra-Tab) 100 mg BID PO Last administered on 05/11/17 21:01; Start 05/06/17 at 14:00; Stop 05/12/17 at 07:50; Status DC Multi-Ingredient Mouthwash/Gargle (Magic Mouthwash) 10 ml PRN QID PRN PO MOUTH PAIN Last administered on 05/08/17 10:12; Start 05/07/17 at 09:00 Nystatin 5 ml [id number] Last administered on 05/14/17 20:40; Start at 13:00 Potassium Chloride/Dextrose/ Sod Cl 1,000 ml @ 75 mls/hr [id number] IV ; Start at 14:00; Stop 05/08/17 at 16:37; Status DC Potassium Chloride (Klor-Con) 40 meq 1X ONCE PO Last administered on 14:12; Start 05/08/17 at 14:00; Stop 05/08/17 at 14:01; Status DC Amiodarone HCl 900 mg/Dextrose 518 ml @ 34.53 mls/ hr CONT PRN IV SEE I/O RECORD Last administered on 05/09/17 14:28; Start 05/08/17 at 14:45; Stop at 14:29; Status DC Amiodarone HCl 900 mg/Dextrose 518 ml @ 0 mls/hr CONT PRN IV SEE I/O RECORD; Start 05/08/17 at 14:45; Status UNV Sodium Chloride 500 ml @ 500 mls/hr 1X ONCE IV Last administered on 15:30; Start 05/08/17 at 15:30; Stop 05/08/17 at 16:29; Status DC Sodium Bicarbonate 100 meq 1X ONCE IV Last administered on 05/08/17 16:52; Start 05/08/17 at 15:30; Stop 05/08/17 at 15:31; Status DC Magnesium Sulfate/ Dextrose 100 ml @ 100 mls/hr 1X ONCE IV Last administered on 05/08/17 16:00; Start 05/08/17 at 16:00; Stop 05/08/17 at 16:59; Status DC Magnesium Sulfate/ Dextrose 100 ml @ 100 mls/hr 1X ONCE IV Last administered on 05/08/17 16:00; Start 05/08/17 at 16:00; Stop 05/08/17 at 16:59; Status DC Potassium Chloride (Klor-Con) 40 meq [id number] PO ; Start 05/09/17 at 08:00; Stop 05/09/17 at 08:17; Status DC Potassium Chloride (Klor-Con) 40 meq 1X ONCE PO Last administered on 16:53; Start 05/08/17 at 17:00; Stop 05/08/17 at 17:01; Status DC Potassium Chloride/Sodium Chloride 1,000 ml @ 80 mls/hr [id number] IV Last administered on 05/09/17 05:49; Start 05/08/17 at 17:30; Stop 05/09/17 at 18 :27; Status DC Amiodarone HCl 150 mg/Dextrose 103 ml @ 618 mls/hr 1X ONCE IV Last administered on 05/09/17 07:22; Start 05/09/17 at 07:00; Stop 05/09/17 at 07 :09; Status DC Magnesium Sulfate/ Dextrose 50 ml @ 25 mls/hr 1X ONCE IV Last administered on 05/09/17 07:11; Start 05/09/17 at 07:00; Stop 05/09/17 at 08:59; Status DC Potassium Chloride 50 ml @ 25 mls/hr PRN Q2HRS PRN IV K-3.1 TO 3.5 Last administered on 05/09/17 11:44; Start 05/09/17 at 06:45; Stop 05/09/17 at 11 :44; Status DC Potassium Chloride 50 ml @ 25 mls/hr PRN Q2HRS PRN IV K 2.6 TO 3; Start at 06:45 Potassium Chloride 50 ml @ 25 mls/hr PRN Q2HRS PRN IV FOR K<2.6; Start at 08:00 Magnesium Sulfate/ Dextrose 100 ml @ 50 mls/hr PRN DAILY PRN IV MAG<1.8 Last administered on 05/11/17 09:59; Start 05/09/17 at 09:00 Potassium Chloride 50 ml @ 50 mls/hr Q1H IV ; Start 05/09/17 at 08:15; Stop at 10:14; Status Cancel Potassium Chloride 50 ml @ 50 mls/hr DAILY IV Last administered on 05/11/17 08:51; Start 05/10/17 at 09:00; Stop 05/11/17 at 09:59; Status DC Potassium Chloride 50 ml @ 50 mls/hr Q1H IV Last administered on 05/09/17 10: 00; Start 05/09/17 at 09:00; Stop 05/09/17 at 10:59; Status DC Potassium Chloride (Klor-Con) 40 meq 1X ONCE PO ; Start 05/09/17 at 11:00; Stop 05/09/17 at 11:01; Status DC Potassium Chloride/Dextrose/ Sod Cl 1,000 ml @ 75 mls/hr [id number] IV Last administered on 05/10/17 17:58; Start 05/09/17 at 11:00; Stop 05/11/17 at 08 :26; Status DC Calcium Gluconate (Calcium Gluconate) 1,000 mg 1X ONCE IVP Last administered on 05/09/17 14:28; Start 05/09/17 at 14:00; Stop 05/09/17 at 14:01; Status DC Info 1 each PRN DAILY PRN MC SEE COMMENTS Last administered on 05/14/17 12:20 ; Start 05/09/17 at 13:45 Amiodarone HCl 150 mg/Dextrose 103 ml @ 618 mls/hr 1X ONCE IV Last administered on 05/09/17 14:28; Start 05/09/17 at 14:00; Stop 05/09/17 at 14 :09; Status DC Amiodarone HCl (Cordarone) 400 mg BID PO Last administered on 05/15/17 09:46 ; Start 05/09/17 at 21:00 Sodium Chloride 90 meq/Potassium Chloride 50 meq/ Potassium Phosphate 13.6 mmol/ Magnesium Sulfate 10 meq/ Calcium Gluconate 10 meq/ Multivitamins 10 ml/Chromium / Copper/Manganese/ Seleni/Zn 1 ml/ Total Parenteral Nutrition/Amino Acids/ Dextrose/ Fat Emulsion Intravenous 1,387.0013 ml @ 3.625 mls/hr TPN CONT IV ; Start 05/09/17 at 22:00; Status UNV Sodium Chloride 90 meq/Potassium Acetate 70 meq/ Potassium Phosphate 18 mmol/ Magnesium Sulfate 12 meq/Calcium Gluconate 10 meq/ Multivitamins 10 ml/Chromium / Copper/Manganese/ Seleni/Zn 1 ml/ Total Parenteral Nutrition/Amino Acids/ Dextrose/ Fat Emulsion Intravenous 1,512 ml @ 63 mls/hr TPN CONT IV Last administered on 05/09/17 21:39; Start 05/09/17 at 22:00; Stop 05/10/17 at 21 :59; Status DC Magnesium Sulfate/ Dextrose 50 ml @ 25 mls/hr 1X ONCE IV ; Start 05/09/17 at 15:15; Stop 05/09/17 at 17:14; Status DC Procainamide HCl 2000 mg/Dextrose 520 ml @ 31.2 mls/hr CONT PRN IV SEE I/O RECORD Last administered on 05/11/17 21:55; Start 05/09/17 at 16:00; Stop at 11:28; Status DC Procainamide HCl 500 mg/Dextrose 55 ml @ 110 mls/hr 1X ONCE IV Last administered on 05/09/17 15:49; Start 05/09/17 at 15:30; Stop 05/09/17 at 15 :59; Status DC Procainamide HCl 2000 mg/Dextrose 520 ml @ 0 mls/hr CONT PRN IV SEE I/O RECORD ; Start 05/09/17 at 15:45; Status UNV Sodium Phosphate 30 mmol/Dextrose 260 ml @ 65 mls/hr 1X ONCE IV ; Start 05/09 at 17:45; Stop 05/09/17 at 21:44; Status Cancel Sodium Phosphate 20 mmol/Dextrose 256.6667 ml @ 64.167 m... 1X ONCE IV Last administered on 05/09/17 18:10; Start 05/09/17 at 17:45; Stop 05/09/17 at 21 :44; Status DC Magnesium Sulfate/ Dextrose 100 ml @ 100 mls/hr 1X ONCE IV Last administered on 05/10/17 01:48; Start 05/10/17 at 02:00; Stop 05/10/17 at 02:59; Status DC Midazolam HCl (Versed) 1 mg PRN Q2HR PRN IV SEDATION; Start 05/10/17 at 02:30 Midazolam HCl (Versed) 2 mg PRN Q2HR PRN IV SEDATION; Start 05/10/17 at 02:30 Amiodarone HCl 900 mg/Dextrose 518 ml @ 0 mls/hr CONT PRN IV SEE I/O RECORD; Start 05/10/17 at 03:45; Status UNV Amiodarone HCl 450 mg/Dextrose 259 ml @ 17.26 mls/ hr CONT PRN IV SEE I/O RECORD Last administered on 05/11/17 05:43; Start 05/10/17 at 04:00 Lidocaine HCl/ Dextrose 500 ml @ 0 mls/hr CONT PRN IV SEE I/O RECORD Last administered on 05/12/17 05:40; Start 05/10/17 at 04:00; Stop 05/12/17 at 17 :20; Status DC Lidocaine HCl (Lidocaine HCl 2% Abboject) 100 mg 1X ONCE IV Last administered on 05/10/17 04:13; Start 05/10/17 at 04:30; Stop 05/10/17 at 04:31; Status DC Amiodarone HCl (Cordarone) 300 mg STK-MED ONCE .ROUTE ; Start 05/09/17 at 23:00 ; Stop 05/10/17 at 11:00; Status DC Atropine Sulfate 1 mg STK-MED ONCE .ROUTE ; Start 05/09/17 at 23:00; Stop at 11:00; Status DC Epinephrine HCl (EPINEPHrine SYRINGE) 3 mg STK-MED ONCE .ROUTE ; Start at 23:00; Stop 05/10/17 at 11:00; Status DC Lidocaine HCl (Lidocaine HCl 2% Abboject) 100 mg STK-MED ONCE .ROUTE ; Start at 23:00; Stop 05/10/17 at 11:00; Status DC Magnesium Sulfate/ Dextrose (Magnesium Sulfate PREMIX 1GM) 2 gm STK-MED ONCE IV ; Start 05/09/17 at 23:00; Stop 05/10/17 at 11:00; Status DC Potassium Phosphate 13.6 mmol/Dextrose 104.5333 ml @ 52.267 m... ONCE ONCE IV Last administered on 05/10/17 15:54; Start 05/10/17 at 14:00; Stop at 15:59; Status DC Sodium Acetate 90 meq/Potassium Chloride 70 meq/ Potassium Phosphate 20.4 mmol/ Magnesium Sulfate 18 meq/ Calcium Gluconate 10 meq/ Multivitamins 10 ml/Chromium / Copper/Manganese/ Seleni/Zn 1 ml/ Total Parenteral Nutrition/Amino Acids/ Dextrose/ Fat Emulsion Intravenous 1,512 ml @ 63 mls/hr TPN CONT IV Last administered on 05/10/17 22:00; Start 05/10/17 at 22:00; Stop 05/11/17 at 21 :59; Status DC Lidocaine/Sodium Bicarbonate (Buffered Lidocaine 1%) 20 ml STK-MED ONCE IJ ; Start 05/10/17 at 13:45; Stop 05/10/17 at 13:46; Status DC Lidocaine/Sodium Bicarbonate (Buffered Lidocaine 1%) 3 ml 1X ONCE IJ Last administered on 05/10/17 13:45; Start 05/10/17 at 13:45; Stop 05/10/17 at 13 :57; Status DC Sodium Chloride 250 ml @ 250 mls/hr 1X ONCE IV ; Start 05/10/17 at 13:45; Stop 05/10/17 at 14:44; Status DC Albuterol Sulfate (Ventolin Neb Soln) 2.5 mg 1X ONCE NEB Last administered on 05/10/17 19:54; Start 05/10/17 at 20:00; Stop 05/10/17 at 20:01; Status DC Furosemide (Lasix) 40 mg 1X ONCE IVP Last administered on 05/10/17 21:22; Start 05/10/17 at 21:30; Stop 05/10/17 at 21:31; Status DC Dobutamine HCl/ Dextrose 250 ml @ 0 mls/hr CONT PRN IV SEE I/O RECORD Last administered on 05/13/17 20:58; Start 05/10/17 at 21:15 Sodium Acetate 120 meq/Potassium Chloride 70 meq/ Potassium Phosphate 27.2 mmol/ Magnesium Sulfate 22 meq/ Calcium Gluconate 5 meq/ Multivitamins 10 ml/Chromium / Copper/Manganese/ Seleni/Zn 1 ml/ Total Parenteral Nutrition/Amino Acids/ Dextrose/ Fat Emulsion Intravenous 1,512 ml @ 63 mls/hr TPN CONT IV ; Start 05/11/17 at 22:00; Stop 05/12/17 at 21:59; Status Cancel Potassium Phosphate 13.6 mmol/Dextrose 104.5333 ml @ 52.267 m... ONCE ONCE IV Last administered on 05/11/17 13:24; Start 05/11/17 at 13:00; Stop at 14:59; Status DC Sodium Acetate 120 meq/Potassium Chloride 70 meq/ Potassium Phosphate 25 mmol/ Magnesium Sulfate 22 meq/Calcium Gluconate 5 meq/ Multivitamins 10 ml/Chromium/ Copper/Manganese/ Seleni/Zn 1 ml/ Total Parenteral Nutrition/Amino Acids/ Dextrose/ Fat Emulsion Intravenous 1,512 ml @ 63 mls/hr TPN CONT IV Last administered on 05/11/17 21:56; Start 05/11/17 at 22:00; Stop 05/12/17 at 21 :59; Status DC Furosemide (Lasix) 40 mg DAILY IVP Last administered on 05/15/17 09:47; Start 05/12/17 at 09:00 Sodium Acetate 120 meq/Potassium Chloride 70 meq/ Potassium Phosphate 25 mmol/ Magnesium Sulfate 22 meq/Calcium Gluconate 5 meq/ Multivitamins 10 ml/Chromium/ Copper/Manganese/ Seleni/Zn 1 ml/ Total Parenteral Nutrition/Amino Acids/ Dextrose/ Fat Emulsion Intravenous 1,512 ml @ 63 mls/hr TPN CONT IV Last administered on 05/12/17 22:50; Start 05/12/17 at 22:00; Stop 05/13/17 at 21 :59; Status DC Magnesium Sulfate/ Dextrose (Magnesium Sulfate PREMIX 1GM) 2 gm STK-MED ONCE IV ; Start 05/05/17 at 12:00; Stop 05/12/17 at 17:24; Status DC Sodium Acetate 120 meq/Potassium Chloride 70 meq/ Potassium Phosphate 25 mmol/ Magnesium Sulfate 22 meq/Calcium Gluconate 5 meq/ Multivitamins 10 ml/Chromium/ Copper/Manganese/ Seleni/Zn 1 ml/ Sodium Chloride 40 meq/Total Parenteral Nutrition/Amino Acids/Dextrose/ Fat Emulsion Intravenous 1,512 ml @ 63 mls/hr TPN CONT IV Last administered on 05/13/17 23:09; Start 05/13/17 at 22:00; Stop 05/14/17 at 21:59; Status DC Iohexol (Omnipaque 240 Mg/ml) 30 ml 1X ONCE PO ; Start 05/14/17 at 09:15; Stop 05/14/17 at 09:16; Status DC Iohexol (Omnipaque 300 Mg/ml) 75 ml 1X ONCE IV ; Start 05/14/17 at 09:15; Stop 05/14/17 at 09:16; Status DC Info (Do NOT chart on this entry -- for MONITORING) 1 each PRN DAILY PRN MC SEE COMMENTS; Start 05/14/17 at 09:15; Stop 05/16/17 at 09:14 Heparin Sodium/ Sodium Chloride 500 ml @ As Directed STK-MED ONCE .ROUTE ; Start 05/14/17 at 12:16; Stop 05/14/17 at 12:17; Status DC Lidocaine HCl 20 ml STK-MED ONCE .ROUTE ; Start 05/14/17 at 12:17; Stop at 12:18; Status DC Iohexol (Omnipaque 300 Mg/ml) 100 ml STK-MED ONCE .ROUTE ; Start 05/14/17 at 12 :17; Stop 05/14/17 at 12:18; Status DC Sodium Acetate 120 meq/Potassium Chloride 70 meq/ Potassium Phosphate 18 mmol/ Magnesium Sulfate 22 meq/Calcium Gluconate 5 meq/ Multivitamins 10 ml/Chromium/ Copper/Manganese/ Seleni/Zn 1 ml/ Sodium Chloride 40 meq/Total Parenteral Nutrition/Amino Acids/Dextrose/ Fat Emulsion Intravenous 1,512 ml @ 63 mls/hr TPN CONT IV Last administered on 05/14/17 20:42; Start 05/14/17 at 22:00; Stop 05/15/17 at 21:59 Fentanyl Citrate (Fentanyl 2ml Vial) 100 mcg STK-MED ONCE .ROUTE ; Start at 12:56; Stop 05/14/17 at 12:57; Status DC Midazolam HCl (Versed) 2 mg STK-MED ONCE .ROUTE ; Start 05/14/17 at 12:56; Stop 05/14/17 at 12:57; Status DC Heparin Sodium/ Sodium Chloride 1,000 unit 1X ONCE IART Last administered on 05/14/17 13:30; Start 05/14/17 at 13:30; Stop 05/14/17 at 13:37; Status DC Midazolam HCl (Versed) 1 mg 1X ONCE IV Last administered on 05/14/17 13:30; Start 05/14/17 at 13:30; Stop 05/14/17 at 13:37; Status DC Iohexol (Omnipaque 300 Mg/ml) 54 ml 1X ONCE IART Last administered on 13:30; Start 05/14/17 at 13:30; Stop 05/14/17 at 13:37; Status DC Lidocaine HCl 20 ml 1X ONCE IJ Last administered on 05/14/17 13:30; Start 05/14/17 at 13:30; Stop 05/14/17 at 13:37; Status DC Iohexol (Omnipaque 240 Mg/ml) 50 ml 1X ONCE PO Last administered on t 08:00; Start 05/15/17 at 08:00; Stop 05/15/17 at 08:10; Status DC Info (Do NOT chart on this entry -- for MONITORING) 1 each PRN DAILY PRN MC SEE COMMENTS; Start 05/15/17 at 08:15; Stop 05/17/17 at 08:14 Iohexol (Omnipaque 300 Mg/ml) 75 ml 1X ONCE IV Last administered on t 09:34; Start 05/15/17 at 09:30; Stop 05/15/17 at 09:31; Status DC Info (Do NOT chart on this entry -- for MONITORING) 1 each PRN DAILY PRN MC SEE COMMENTS; Start 05/15/17 at 09:30; Stop 05/17/17 at 09:29 Ceftriaxone Sodium 1 gm/ Dextrose 50 ml @ 100 mls/hr Q24H IV ; Start 05/15/17 at 11:00; Stop 05/15/17 at 11:01; Status DC Active Scripts Active Reported Levofloxacin 500 Mg Tablet 500 Mg PO DAILY Tramadol Hcl 50 Mg Tablet 50 Mg PO Q6H PRN Ondansetron Hcl 4 Mg Tablet 8 Mg PO BID PRN [place] 5-325 Tablet (Acetaminophen/Hydrocodone Bitart) 1 Each Tablet 1-2 Tab PO Q4HRS PRN Atorvastatin Calcium 40 Mg Tablet 1 Tab PO DAILY Metoprolol Tartrate 25 Mg Tablet 1 Tab PO BID Pantoprazole Sodium 40 Mg Tablet.dr 1 Tab PO DAILY Diazepam 5 Mg Tablet 5 Mg PO TID Venlafaxine Hcl Er (Venlafaxine Hcl) 75 Mg Cap.er.24h 75 Mg PO DAILY Synthroid (Levothyroxine Sodium) 75 Mcg Tablet 75 Mcg PO DAILYAC Vitals/I & O Vital Sign - Last 24 Hours 05/14/17 05/14/17 05/14/17 05/14/17 13:00 13:36 14:00 14:15 Pulse 74 69 66 66 Resp 22 22 21 22 B/P (MAP) 119/59 (79) 110/64 (79) 102/58 (73) Pulse Ox 95 95 93 92 O2 Delivery Nasal Cannula Nasal Cannula Nasal Cannula Nasal Cannula O2 Flow Rate 2.0 2.0 2.0 2.0 05/14/17 05/14/17 05/14/17 05/14/17 14:30 14:45 15:00 15:30 Pulse 66 66 64 64 Resp 23 21 23 22 B/P (MAP) 121/57 (78) 113/60 (77) 97/65 (76) 116/65 (82) Pulse Ox 93 93 93 94 O2 Delivery Nasal Cannula Nasal Cannula Nasal Cannula Nasal Cannula O2 Flow Rate 2.0 2.0 2.0 2.0 05/14/17 05/14/17 05/14/17 05/14/17 16:00 17:17 17:19 19:04 Temp 98.6 98.3 97.5 98.6 98.3 97.5 Pulse 64 62 66 Resp 24 19 22 B/P (MAP) 108/59 (75) 122/57 (78) 126/62 (83) Pulse Ox 94 92 88 O2 Delivery Nasal Cannula Nasal Cannula Nasal Cannula Nasal Cannula O2 Flow Rate 2.0 2.0 2.0 2.0 05/14/17 05/14/17 05/14/17 05/14/17 19:50 20:39 20:40 20:41 Pulse 66 66 Resp 22 B/P (MAP) 126/62 126/62 Pulse Ox 94 O2 Delivery Nasal Cannula Nasal Cannula O2 Flow Rate 3.0 2.0 05/14/17 05/14/17 05/15/17 05/15/17 21:41 23:20 03:05 07:00 Temp 97.9 97.9 97.6 97.9 97.9 97.6 Pulse 68 65 62 Resp 20 21 22 20 B/P (MAP) 119/59 (79) 152/68 (96) 118/64 (82) Pulse Ox 93 95 95 98 O2 Delivery Nasal Cannula Nasal Cannula Nasal Cannula Nasal Cannula O2 Flow Rate 2.0 2.0 2.0 05/15/17 05/15/17 05/15/17 05/15/17 08:01 09:46 10:04 11:00 Temp 97.6 97.6 Pulse 62 62 63 Resp 21 B/P (MAP) 118/64 118/64 158/79 (105) Pulse Ox 96 O2 Delivery Nasal Cannula Nasal Cannula O2 Flow Rate 2.0 2.0 Intake and Output 05/15/17 05/15/17 05/16/17 15:00 23:00 07:00 Intake Total 75 ml Output Total 850 ml Balance -775 ml Nutrition Consultation Dietary Evaluation: Recommendations by RD: Increase Calorie Intake, PPN/TPN Comments: Continue current TPN infusion: 225 g dextrose, 60 g AA, 20 g lipid Encouraged continued improving PO intake Can dc TPN once PO intake meeting > 65% est needs Expected Outcomes/Goals: TPN infusion initiated and meeting > 75% est needs within 24 - 48 hrs - met, new goal established 05/14 05/14: Goal - TPN and PO intake to meet > 75% est needs Malnutrition Findings: Food and Nutrition Intake (Mod: <75% est energy req 7days Weight Status: Overweight NEO ASHRAF MD May 15, 2017 12:52
[2017-05-15] MEDS: TPN PER PHARMACY MC PRN (14:02)
[2017-05-15 15:00] VITALS: BP_SYST 87; BP_SYST 94; BP_SYST 96; BP_DIAS 52; BP_DIAS 53
[2017-05-15 15:50] LABS: CALCIUM 8.1 mg/dL (8.5-10.1); CREATININE 0.9 mg/dL (0.6-1.0); GFR 61.2; MAGNESIUM 1.9 mg/dL (1.8-2.4); PHOSPHORUS 4.3 mg/dL (2.6-4.7)
[2017-05-15 19:55] VITALS: BP 108/54
[2017-05-15] MEDS ORDERED: DEXTROSE 70% IV SCH ×11 (22:00)
[2017-05-15] MEDS ORDERED: TOTAL PARENTERAL NUTRITION IV SCH ×11 (22:00)
[2017-05-15] MEDS ORDERED: AMINO ACIDS IV SCH ×11 (22:00)
[2017-05-15] MEDS ORDERED: [UNRECOGNIZED DRUG - OTHER] IV SCH ×11 (22:00)
[2017-05-15 23:55] VITALS: BP 135/63
[2017-05-16 03:15] VITALS: BP 100/55
[2017-05-16 07:00] VITALS: BP 121/65
[2017-05-16] MEDS: VENLAFAXINE XR 37.5 MG CAP.ER.24H. PO SCH (08:57)
[2017-05-16] MEDS: PANTOPRAZOLE 40 MG TABLET.DR. PO SCH (08:57)
[2017-05-16] MEDS: NYSTATIN 100,000 UNITS/ML 5 ML ORAL.SUSP. SWSW SCH ×4 (08:57→21:00)
[2017-05-16] MEDS: FUROSEMIDE 40 MG/4 ML VIAL. IVP SCH (08:57)
[2017-05-16] MEDS: LEVOTHYROXINE 75 MCG TABLET PO SCH (08:58)
[2017-05-16] MEDS: METOPROLOL TART IMMED RELEASE 25 MG TABLET. PO SCH ×2 (08:58→21:29)
[2017-05-16] MEDS: ATORVASTATIN CALCIUM 40 MG TABLET. PO SCH (08:58)
[2017-05-16] MEDS: diazePAM 5 MG TABLET PO SCH ×3 (08:58→21:30)
[2017-05-16] MEDS: ACYCLOVIR 200 MG CAPSULE. PO SCH ×3 (08:58→21:30)
[2017-05-16] MEDS: AMIODARONE HCL 200 MG TABLET. PO SCH ×2 (08:58→21:30)
[2017-05-16] MEDS: traMADol 50 MG TABLET PO PRN ×3 (09:05→21:47)
[2017-05-16 11:00] VITALS: BP 135/62
--- NOTE | 2017-05-16 11:01 | PDOC ---
PULMONARY PROGRESS NOTES Subjective PT S/P CODE FOR V TACH, HAD SHOCKED MULTIPLE TIMES OFF BIPAP/ OFF DOBUTAMINE S/P CATH/ NORMAL CORONARIES/ EF BETTER 40% NOT EATING WELL Vitals Vital Signs Date Time Temp Pulse Resp B/P (MAP) Pulse Ox O2 Delivery O2 Flow Rate FiO2 05/16/17 10:53 Nasal Cannula 2.0 05/16/17 08:58 60 100/55 05/16/17 07:00 98.6 19 94 98.6 General: Alert, No acute distress Lungs: Other (decrease bases) Cardiovascular: S1, S2 Abdomen: Soft Neuro Exam: Alert Extremities: Other (1=EDEMA) Skin: Warm Labs Laboratory Tests Test 05/14/17 12:40 05/15/17 15:23 Prothrombin Time 14.6 SEC (11.7-14.0) Prothromb Time International Ratio 1.2 (0.8-1.1) Sodium Level 132 mmol/L (136-145) Potassium Level 4.0 mmol/L (3.5-5.1) Chloride Level 96 mmol/L (98-107) Carbon Dioxide Level 32 mmol/L (21-32) Anion Gap 4 (6-14) Blood Urea Nitrogen 20 mg/dL (7-20) Creatinine 0.9 mg/dL (0.6-1.0) Estimated GFR (Cockcroft-Gault) 61.2 Glucose Level 119 mg/dL (70-99) Calcium Level 8.1 mg/dL (8.5-10.1) Phosphorus Level 4.3 mg/dL (2.6-4.7) Magnesium Level 1.9 mg/dL (1.8-2.4) Laboratory Tests Test 05/15/17 15:23 Sodium Level 132 mmol/L (136-145) Potassium Level 4.0 mmol/L (3.5-5.1) Chloride Level 96 mmol/L (98-107) Carbon Dioxide Level 32 mmol/L (21-32) Anion Gap 4 (6-14) Blood Urea Nitrogen 20 mg/dL (7-20) Creatinine 0.9 mg/dL (0.6-1.0) Estimated GFR (Cockcroft-Gault) 61.2 Glucose Level 119 mg/dL (70-99) Calcium Level 8.1 mg/dL (8.5-10.1) Phosphorus Level 4.3 mg/dL (2.6-4.7) Magnesium Level 1.9 mg/dL (1.8-2.4) Medications Active Scripts Medications Dose Route/Sig Max Daily Dose Days Date Category Levofloxacin 500 Mg Tablet 500 Mg PO DAILY 05/05/17 Reported Tramadol Hcl 50 Mg Tablet 50 Mg PO Q6H PRN 05/05/17 Reported Ondansetron Hcl 4 Mg Tablet 8 Mg PO BID PRN 05/05/17 Reported Campbell 5-325 Tablet (Acetaminophen/Hydrocodone Bitart) 1 Each Tablet 1-2 Tab PO Q4HRS PRN 10/19/16 Reported Atorvastatin Calcium 40 Mg Tablet 1 Tab PO DAILY 10/18/15 Reported Metoprolol Tartrate 25 Mg Tablet 1 Tab PO BID 10/18/15 Reported Pantoprazole Sodium 40 Mg Tablet. 1 Tab PO DAILY 04/26/15 Reported Diazepam 5 Mg Tablet 5 Mg PO TID 03/07/15 Reported Venlafaxine Hcl Er (Venlafaxine Hcl) 75 Mg Cap.er.24h 75 Mg PO DAILY 03/07/15 Reported Synthroid (Levothyroxine Sodium) 75 Mcg Tablet 75 Mcg PO DAILYAC 03/07/15 Reported Impression . 1. Progressive dyspnea POA, multifactorial secondary to CHF, weakness from her recent chemotherapy and toxicities/ NEW CM EF 25 %. 2. Stage 4 Colon cancer. 3. Leukopenia/ thrombocytopenia secondary to chemotherapy.much improved 4. Thrombocytopenia.improving 5. Acute renal failure, improved 6. Urinary tract infection. 7. Protein malnutrition present upon admission. 8. CODE BLUE ,V- TACH PER DR ASHRAF 9. Mild interstitial edema POA Plan . CLINICALLY IMPROVING OFF DOBUTAMINE S/P CATH 05/14. NO SIG CAD, EF IMPROVED TO 40% CT CHEST 05/15 REVIEWED. GG INFILTRATES IN UPPER LOBES, ? INFLAMMATORY AND SUSPECT RELATED TO AMIODARONE/ HAS BEEN ON HIGH DOSE AMIODARONE/ BASAL INFILTRATES/ ATELECTASIS/ HAS ALREADY BEEN TREATED WITH ROCEPHIN/DOXY. WILL HOLD ANY FURTHER ANTIBIOTICS F/U CXR NEEDED BLOOD COUNTS IMPROVING FOLLOW [facility] INPUT SUPPORTIVE CARE MG MCKENNA MD May 16, 2017 11:01
--- NOTE | 2017-05-16 11:06 | PDOC ---
GENERAL General: vss and afebrile. awake and alert. chest clear and heart regular. no further v- tach. ct chest, abdomen, and pelvis yesterday without any evidence malignancy. abdomen soft and benign. bmp ok this am. encouraged exercise and eating. will need snu and dialysis social worker asked to facilitate same. Problems: VITAL SIGNS Vital Signs: Vital Signs Date Time Temp Pulse Resp B/P (MAP) Pulse Ox O2 Delivery O2 Flow Rate FiO2 05/16/17 10:53 Nasal Cannula 2.0 05/16/17 08:58 60 100/55 05/16/17 07:00 98.6 19 94 98.6 I & O I & O Intake and Output 05/16/17 07:00 Intake Total 1000 ml Output Total 1825 ml Balance -825 ml Intake Oral 1000 ml Output Urine Total 1625 ml Stool Total 200 ml ALLERGIES Allergies: Allergies Coded Allergies Type Severity Reaction Last Updated Verified codeine Adverse Reaction Intermediate Patient states hallucinations 10/19/16 Yes MEDS Medications: Current Medications Medications (Trade) Dose Ordered Sig/Fannie Start Time Stop Time Status Last Admin Dose Admin Acyclovir (Zovirax) 400 mg [id number] 05/06/17 09:00 05/16/17 08:58 400 MG Albuterol Sulfate (Ventolin Neb Soln) 2.5 mg 1X ONCE 05/10/17 20:00 05/10/17 20:01 DC 05/10/17 19:54 2.5 MG Amiodarone HCl (Cordarone) 300 mg STK-MED ONCE 05/09/17 23:00 05/10/17 11:00 DC Amiodarone HCl 150 mg/Dextrose 103 ml @ 618 mls/hr 1X ONCE 05/09/17 14:00 05/09/17 14:09 DC 05/09/17 14:28 618 MLS/HR Amiodarone HCl 450 mg/Dextrose 259 ml @ 17.26 mls/ hr CONT PRN 05/10/17 04:00 05/11/17 05:43 17.26 MLS/HR Amiodarone HCl 900 mg/Dextrose 518 ml @ 0 mls/hr CONT PRN 05/10/17 03:45 UNV Atorvastatin Calcium (Lipitor) 40 mg DAILY 05/06/17 09:00 05/16/17 08:58 40 MG Atropine Sulfate 1 mg STK-MED ONCE 05/09/17 23:00 05/10/17 11:00 DC Calcium Gluconate (Calcium Gluconate) 1,000 mg 1X ONCE 05/09/17 14:00 05/09/17 14:01 DC 05/09/17 14:28 1,000 MG Ceftriaxone Sodium 1 gm/ Dextrose 50 ml @ 100 mls/hr Q24H 05/15/17 11:00 05/15/17 11:01 DC Ceftriaxone Sodium (Rocephin) 1 gm Q24H 05/05/17 18:00 05/13/17 08:09 DC 05/12/17 17:46 1 GM Diazepam (Valium) 5 mg TID 05/05/17 21:00 05/16/17 08:58 5 MG Dobutamine HCl/ Dextrose 250 ml @ 0 mls/hr CONT PRN 05/10/17 21:15 05/13/17 20:58 5.756 MLS/HR Doxycycline Hyclate (Vibra-Tab) 100 mg BID 05/06/17 14:00 05/12/17 07:50 DC 05/11/17 21:01 100 MG Epinephrine HCl (EPINEPHrine SYRINGE) 3 mg STK-MED ONCE 05/09/17 23:00 05/10/17 11:00 DC Fentanyl Citrate (Fentanyl 2ml Vial) 100 mcg STK-MED ONCE 05/14/17 12:56 05/14/17 12:57 DC Furosemide (Lasix) 40 mg DAILY 05/12/17 09:00 05/16/17 08:57 40 MG Heparin Sodium/ Sodium Chloride 1,000 unit 1X ONCE 05/14/17 13:30 05/14/17 13:37 DC 05/14/17 13:30 1,000 UNIT Info (Do NOT chart on this entry -- for MONITORING) 1 each PRN DAILY PRN 05/15/17 09:30 05/17/17 09:29 Iohexol (Omnipaque 240 Mg/ml) 50 ml 1X ONCE 05/15/17 08:00 05/15/17 08:10 DC 05/15/17 08:00 50 ML Iohexol (Omnipaque 300 Mg/ml) 75 ml 1X ONCE 05/15/17 09:30 05/15/17 09:31 DC 05/15/17 09:34 75 ML Levothyroxine Sodium (Synthroid) 75 mcg DAILYAC 05/06/17 07:30 05/16/17 08:58 75 MCG Lidocaine HCl 20 ml 1X ONCE 05/14/17 13:30 05/14/17 13:37 DC 05/14/17 13:30 20 ML Lidocaine HCl (Lidocaine HCl 2% Abboject) 100 mg STK-MED ONCE 05/09/17 23:00 05/10/17 11:00 DC Lidocaine HCl/ Dextrose 500 ml @ 0 mls/hr CONT PRN 05/10/17 04:00 05/12/17 17:20 DC 05/12/17 05:40 15 MLS/HR Lidocaine/Sodium Bicarbonate (Buffered Lidocaine 1%) 3 ml 1X ONCE 05/10/17 13:45 05/10/17 13:57 DC 05/10/17 13:45 3 ML Magnesium Sulfate/ Dextrose (Magnesium Sulfate PREMIX 1GM) 2 gm STK-MED ONCE 05/05/17 12:00 05/12/17 17:24 DC Metoprolol Tartrate (Lopressor) 25 mg BID 05/05/17 21:00 05/16/17 08:58 25 MG Midazolam HCl (Versed) 1 mg 1X ONCE 05/14/17 13:30 05/14/17 13:37 DC 05/14/17 13:30 1 MG Multi-Ingredient Mouthwash/Gargle (Magic Mouthwash) 10 ml PRN QID PRN 05/07/17 09:00 05/08/17 10:12 10 ML Nystatin 5 ml [id number] 05/07/17 13:00 05/16/17 08:57 5 ML Ondansetron HCl (Zofran Odt) 8 mg PRN Q12HRS PRN 05/05/17 18:30 05/11/17 11:52 8 MG Pantoprazole Sodium (Protonix) 40 mg DAILY 05/06/17 09:00 05/16/17 08:57 40 MG Potassium Chloride/Dextrose/ Sod Cl 1,000 ml @ 75 mls/hr [id number] 05/09/17 11:00 05/11/17 08:26 DC 05/10/17 17:58 75 MLS/HR Potassium Chloride/Sodium Chloride 1,000 ml @ 80 mls/hr [id number] 05/08/17 17:30 05/09/17 18:27 DC 05/09/17 05:49 80 MLS/HR Potassium Phosphate 13.6 mmol/Dextrose 104.5333 ml @ 52.267 m... ONCE ONCE 05/11/17 13:00 05/11/17 14:59 DC 05/11/17 13:24 52.267 MLS/HR Potassium Chloride (Klor-Con) 40 meq 1X ONCE 05/09/17 11:00 05/09/17 11:01 DC Procainamide HCl 500 mg/Dextrose 55 ml @ 110 mls/hr 1X ONCE 05/09/17 15:30 05/09/17 15:59 DC 05/09/17 15:49 110 MLS/HR Procainamide HCl 2000 mg/Dextrose 520 ml @ 0 mls/hr CONT PRN 05/09/17 15:45 UNV Sodium Acetate 120 meq/Potassium Chloride 70 meq/ Potassium Phosphate 18 mmol/ Magnesium Sulfate 22 meq/Calcium Gluconate 5 meq/ Multivitamins 10 ml/Chromium/ Copper/Manganese/ Seleni/Zn 1 ml/ Sodium Chloride 40 meq/Total Parenteral Nutrition/Amino Acids/Dextrose/ Fat Emulsion Intravenous 1,512 ml @ 63 mls/hr TPN CONT 05/15/17 22:00 05/16/17 21:59 05/15/17 21:05 63 MLS/HR Sodium Acetate 120 meq/Potassium Chloride 70 meq/ Potassium Phosphate 25 mmol/ Magnesium Sulfate 22 meq/Calcium Gluconate 5 meq/ Multivitamins 10 ml/Chromium/ Copper/Manganese/ Seleni/Zn 1 ml/ Sodium Chloride 40 meq/Total Parenteral Nutrition/Amino Acids/Dextrose/ Fat Emulsion Intravenous 1,512 ml @ 63 mls/hr TPN CONT 05/13/17 22:00 05/14/17 21:59 DC 05/13/17 23:09 63 MLS/HR Sodium Acetate 120 meq/Potassium Chloride 70 meq/ Potassium Phosphate 25 mmol/ Magnesium Sulfate 22 meq/Calcium Gluconate 5 meq/ Multivitamins 10 ml/Chromium/ Copper/Manganese/ Seleni/Zn 1 ml/ Total Parenteral Nutrition/Amino Acids/Dextrose/ Fat Emulsion Intravenous 1,512 ml @ 63 mls/hr TPN CONT 05/12/17 22:00 05/13/17 21:59 DC 05/12/17 22:50 63 MLS/HR Sodium Acetate 120 meq/Potassium Chloride 70 meq/ Potassium Phosphate 27.2 mmol/Magnesium Sulfate 22 meq/ Calcium Gluconate 5 meq/ Multivitamins 10 ml/Chromium/ Copper/Manganese/ Seleni/Zn 1 ml/ Total Parenteral Nutrition/Amino Acids/Dextrose/ Fat Emulsion Intravenous 1,512 ml @ 63 mls/hr TPN CONT 05/11/17 22:00 05/12/17 21:59 Cancel Sodium Acetate 90 meq/Potassium Chloride 70 meq/ Potassium Phosphate 20.4 mmol/Magnesium Sulfate 18 meq/ Calcium Gluconate 10 meq/ Multivitamins 10 ml/Chromium/ Copper/Manganese/ Seleni/Zn 1 ml/ Total Parenteral Nutrition/Amino Acids/Dextrose/ Fat Emulsion Intravenous 1,512 ml @ 63 mls/hr TPN CONT 05/10/17 22:00 05/11/17 21:59 DC 05/10/17 22:00 63 MLS/HR Sodium Bicarbonate 100 meq 1X ONCE 05/08/17 15:30 05/08/17 15:31 DC 05/08/17 16:52 100 MEQ Sodium Chloride 250 ml @ 250 mls/hr 1X ONCE 05/10/17 13:45 05/10/17 14:44 DC Sodium Chloride 90 meq/Potassium Acetate 70 meq/ Potassium Phosphate 18 mmol/ Magnesium Sulfate 12 meq/Calcium Gluconate 10 meq/ Multivitamins 10 ml/Chromium/ Copper/Manganese/ Seleni/Zn 1 ml/ Total Parenteral Nutrition/Amino Acids/Dextrose/ Fat Emulsion Intravenous 1,512 ml @ 63 mls/hr TPN CONT 05/09/17 22:00 05/10/17 21:59 DC 05/09/17 21:39 63 MLS/HR Sodium Chloride 90 meq/Potassium Chloride 50 meq/ Potassium Phosphate 13.6 mmol/Magnesium Sulfate 10 meq/ Calcium Gluconate 10 meq/ Multivitamins 10 ml/Chromium/ Copper/Manganese/ Seleni/Zn 1 ml/ Total Parenteral Nutrition/Amino Acids/Dextrose/ Fat Emulsion Intravenous 1,387.0013 ml @ 3.625 mls/hr TPN CONT 05/09/17 22:00 UNV Sodium Phosphate 20 mmol/Dextrose 256.6667 ml @ 64.167 m... 1X ONCE 05/09/17 17:45 05/09/17 21:44 DC 05/09/17 18:10 64.167 MLS/HR Sodium Phosphate 30 mmol/Dextrose 260 ml @ 65 mls/hr 1X ONCE 05/09/17 17:45 05/09/17 21:44 Cancel Tramadol HCl (Ultram) 50 mg PRN Q6HRS PRN 05/05/17 18:15 05/16/17 09:05 50 MG Vancomycin HCl 1 each 1X ONCE 05/07/17 19:00 05/07/17 19:01 Cancel Vancomycin HCl (Vanco Per Pharmacy) 1 each PRN DAILY PRN 05/05/17 18:00 05/06/17 13:10 DC 05/06/17 12:53 1 EACH Vancomycin HCl 1.75 gm/Dextrose 500 ml @ 250 mls/hr 1X ONCE 05/05/17 18:30 05/05/17 20:29 DC 05/05/17 19:21 250 MLS/HR Vancomycin HCl 1 gm/Dextrose 250 ml @ 250 mls/hr Q24H 05/06/17 19:30 05/06/17 19:30 DC Venlafaxine HCl (Effexor Xr) 75 mg DAILY 05/06/17 09:00 05/16/17 08:57 75 MG LAB Lab: Laboratory Tests Test 05/15/17 15:23 Sodium Level 132 mmol/L (136-145) Potassium Level 4.0 mmol/L (3.5-5.1) Chloride Level 96 mmol/L (98-107) Carbon Dioxide Level 32 mmol/L (21-32) Anion Gap 4 (6-14) Blood Urea Nitrogen 20 mg/dL (7-20) Creatinine 0.9 mg/dL (0.6-1.0) Estimated GFR (Cockcroft-Gault) 61.2 Glucose Level 119 mg/dL (70-99) Calcium Level 8.1 mg/dL (8.5-10.1) Phosphorus Level 4.3 mg/dL (2.6-4.7) Magnesium Level 1.9 mg/dL (1.8-2.4) Nutrition Consultation Dietary Evaluation: Recommendations by RD: Increase Calorie Intake, PPN/TPN Comments: Continue current TPN infusion: 225 g dextrose, 60 g AA, 20 g lipid Encouraged continued improving PO intake Can dc TPN once PO intake meeting > 65% est needs Expected Outcomes/Goals: TPN infusion initiated and meeting > 75% est needs within 24 - 48 hrs - met, new goal established 05/14 05/14: Goal - TPN and PO intake to meet > 75% est needs Malnutrition Findings: Food and Nutrition Intake (Mod: <75% est energy req 7days Weight Status: Overweight APPL,ZACK Coon MD May 16, 2017 11:06
[2017-05-16 11:21] LABS: CALCIUM 8.6 mg/dL (8.5-10.1); GFR 54.2; MAGNESIUM 2.1 mg/dL (1.8-2.4); PHOSPHORUS 4.3 mg/dL (2.6-4.7); POTASSIUM 4.2 mmol/L (3.5-5.1)
--- NOTE | 2017-05-16 11:46 | PDOC ---
PROGRESS NOTES Subjective Subjective Very weak but feels a little better today. She continues in sinus rhythm. Objective Objective Vital Signs Date Time Temp Pulse Resp B/P (MAP) Pulse Ox O2 Delivery O2 Flow Rate FiO2 05/16/17 10:53 Nasal Cannula 2.0 05/16/17 08:58 60 100/55 05/16/17 07:00 98.6 19 94 98.6 Intake and Output 05/17/17 07:00 Intake Total 400 ml Output Total 250 ml Balance 150 ml Intake Oral 400 ml Output Urine Total 250 ml Physical Exam Physical Exam No significant changes in cardiac exam Assessment Assessment Patient slowly improving. I agree with transfer to senior care soon to physical therapy. Continue with the amiodarone at the present dose to complete a week and then decrease to 200 mg a day Comment Review of Relevant I have reviewed the following items armida (where applicable) has been applied. Labs Laboratory Tests Test 05/14/17 12:40 05/15/17 15:23 05/16/17 10:45 Prothrombin Time 14.6 SEC (11.7-14.0) Prothromb Time International Ratio 1.2 (0.8-1.1) Sodium Level 132 mmol/L (136-145) 133 mmol/L (136-145) Potassium Level 4.0 mmol/L (3.5-5.1) 4.2 mmol/L (3.5-5.1) Chloride Level 96 mmol/L (98-107) 97 mmol/L (98-107) Carbon Dioxide Level 32 mmol/L (21-32) 30 mmol/L (21-32) Anion Gap 4 (6-14) 6 (6-14) Blood Urea Nitrogen 20 mg/dL (7-20) 19 mg/dL (7-20) Creatinine 0.9 mg/dL (0.6-1.0) 1.0 mg/dL (0.6-1.0) Estimated GFR (Cockcroft-Gault) 61.2 54.2 Glucose Level 119 mg/dL (70-99) 102 mg/dL (70-99) Calcium Level 8.1 mg/dL (8.5-10.1) 8.6 mg/dL (8.5-10.1) Phosphorus Level 4.3 mg/dL (2.6-4.7) 4.3 mg/dL (2.6-4.7) Magnesium Level 1.9 mg/dL (1.8-2.4) 2.1 mg/dL (1.8-2.4) Laboratory Tests Test 05/15/17 15:23 05/16/17 10:45 Sodium Level 132 mmol/L (136-145) 133 mmol/L (136-145) Potassium Level 4.0 mmol/L (3.5-5.1) 4.2 mmol/L (3.5-5.1) Chloride Level 96 mmol/L (98-107) 97 mmol/L (98-107) Carbon Dioxide Level 32 mmol/L (21-32) 30 mmol/L (21-32) Anion Gap 4 (6-14) 6 (6-14) Blood Urea Nitrogen 20 mg/dL (7-20) 19 mg/dL (7-20) Creatinine 0.9 mg/dL (0.6-1.0) 1.0 mg/dL (0.6-1.0) Estimated GFR (Cockcroft-Gault) 61.2 54.2 Glucose Level 119 mg/dL (70-99) 102 mg/dL (70-99) Calcium Level 8.1 mg/dL (8.5-10.1) 8.6 mg/dL (8.5-10.1) Phosphorus Level 4.3 mg/dL (2.6-4.7) 4.3 mg/dL (2.6-4.7) Magnesium Level 1.9 mg/dL (1.8-2.4) 2.1 mg/dL (1.8-2.4) Microbiology 05/06/17 Urine Culture - Final, Complete 05/06/17 Urine Culture Result 1 (MARINE) - Final, Complete Medications Current Medications Ceftriaxone Sodium 1 gm/ Dextrose 50 ml @ 100 mls/hr Q24H IV ; Start 05/05/17 at 18:00; Status UNV Vancomycin HCl (Vanco Per Pharmacy) 1 each PRN DAILY PRN MC SEE COMMENTS Last administered on 05/06/17 12:53; Start 05/05/17 at 18:00; Stop 05/06/17 at 13:10 ; Status DC Ceftriaxone Sodium (Rocephin) 1 gm Q24H IVP Last administered on 05/12/17 17: 46; Start 05/05/17 at 18:00; Stop 05/13/17 at 08:09; Status DC Sodium Chloride 1,000 ml @ 75 mls/hr [id number] IV Last administered on 04:20; Start 05/05/17 at 18:15; Stop 05/08/17 at 13:44; Status DC Atorvastatin Calcium (Lipitor) 40 mg DAILY PO Last administered on 05/16/17 08:58; Start 05/06/17 at 09:00 Diazepam (Valium) 5 mg TID PO Last administered on 05/16/17 08:58; Start 05/05/17 at 21:00 Levothyroxine Sodium (Synthroid) 75 mcg DAILYAC PO Last administered on 08:58; Start 05/06/17 at 07:30 Metoprolol Tartrate (Lopressor) 25 mg BID PO Last administered on 05/16/17 08 :58; Start 05/05/17 at 21:00 Pantoprazole Sodium (Protonix) 40 mg DAILY PO Last administered on 05/16/17 08:57; Start 05/06/17 at 09:00 Tramadol HCl (Ultram) 50 mg PRN Q6HRS PRN PO PAIN Last administered on 09:05; Start 05/05/17 at 18:15 Ondansetron HCl (Zofran Odt) 8 mg PRN Q12HRS PRN PO NAUSEA/VOMITING Last administered on 05/11/17 11:52; Start 05/05/17 at 18:30 Venlafaxine HCl (Effexor Xr) 75 mg DAILY PO Last administered on 05/16/17 08: 57; Start 05/06/17 at 09:00 Vancomycin HCl 1.75 gm/Dextrose 500 ml @ 250 mls/hr 1X ONCE IV Last administered on 05/05/17 19:21; Start 05/05/17 at 18:30; Stop 05/05/17 at 20:29 ; Status DC Vancomycin HCl 1 gm/Dextrose 250 ml @ 250 mls/hr Q24H IV ; Start 05/06/17 at 19 :30; Stop 05/06/17 at 19:30; Status DC Vancomycin HCl 1 each 1X ONCE MC ; Start 05/07/17 at 19:00; Stop 05/07/17 at 19:01; Status Cancel Acyclovir (Zovirax) 400 mg [id number] PO Last administered on 05/16/17 08:58; Start 05/06/17 at 09:00 Doxycycline Hyclate (Vibra-Tab) 100 mg BID PO Last administered on 05/11/17 21:01; Start 05/06/17 at 14:00; Stop 05/12/17 at 07:50; Status DC Multi-Ingredient Mouthwash/Gargle (Magic Mouthwash) 10 ml PRN QID PRN PO MOUTH PAIN Last administered on 05/08/17 10:12; Start 05/07/17 at 09:00 Nystatin 5 ml [id number] Last administered on 05/16/17 08:57; Start at 13:00 Potassium Chloride/Dextrose/ Sod Cl 1,000 ml @ 75 mls/hr [id number] IV ; Start at 14:00; Stop 05/08/17 at 16:37; Status DC Potassium Chloride (Klor-Con) 40 meq 1X ONCE PO Last administered on 14:12; Start 05/08/17 at 14:00; Stop 05/08/17 at 14:01; Status DC Amiodarone HCl 900 mg/Dextrose 518 ml @ 34.53 mls/ hr CONT PRN IV SEE I/O RECORD Last administered on 05/09/17 14:28; Start 05/08/17 at 14:45; Stop at 14:29; Status DC Amiodarone HCl 900 mg/Dextrose 518 ml @ 0 mls/hr CONT PRN IV SEE I/O RECORD; Start 05/08/17 at 14:45; Status UNV Sodium Chloride 500 ml @ 500 mls/hr 1X ONCE IV Last administered on 15:30; Start 05/08/17 at 15:30; Stop 05/08/17 at 16:29; Status DC Sodium Bicarbonate 100 meq 1X ONCE IV Last administered on 05/08/17 16:52; Start 05/08/17 at 15:30; Stop 05/08/17 at 15:31; Status DC Magnesium Sulfate/ Dextrose 100 ml @ 100 mls/hr 1X ONCE IV Last administered on 05/08/17 16:00; Start 05/08/17 at 16:00; Stop 05/08/17 at 16:59; Status DC Magnesium Sulfate/ Dextrose 100 ml @ 100 mls/hr 1X ONCE IV Last administered on 05/08/17 16:00; Start 05/08/17 at 16:00; Stop 05/08/17 at 16:59; Status DC Potassium Chloride (Klor-Con) 40 meq [id number] PO ; Start 05/09/17 at 08:00; Stop 05/09/17 at 08:17; Status DC Potassium Chloride (Klor-Con) 40 meq 1X ONCE PO Last administered on 16:53; Start 05/08/17 at 17:00; Stop 05/08/17 at 17:01; Status DC Potassium Chloride/Sodium Chloride 1,000 ml @ 80 mls/hr [id number] IV Last administered on 05/09/17 05:49; Start 05/08/17 at 17:30; Stop 05/09/17 at 18 :27; Status DC Amiodarone HCl 150 mg/Dextrose 103 ml @ 618 mls/hr 1X ONCE IV Last administered on 05/09/17 07:22; Start 05/09/17 at 07:00; Stop 05/09/17 at 07 :09; Status DC Magnesium Sulfate/ Dextrose 50 ml @ 25 mls/hr 1X ONCE IV Last administered on 05/09/17 07:11; Start 05/09/17 at 07:00; Stop 05/09/17 at 08:59; Status DC Potassium Chloride 50 ml @ 25 mls/hr PRN Q2HRS PRN IV K-3.1 TO 3.5 Last administered on 05/09/17 11:44; Start 05/09/17 at 06:45; Stop 05/09/17 at 11 :44; Status DC Potassium Chloride 50 ml @ 25 mls/hr PRN Q2HRS PRN IV K 2.6 TO 3; Start at 06:45 Potassium Chloride 50 ml @ 25 mls/hr PRN Q2HRS PRN IV FOR K<2.6; Start at 08:00 Magnesium Sulfate/ Dextrose 100 ml @ 50 mls/hr PRN DAILY PRN IV MAG<1.8 Last administered on 05/11/17 09:59; Start 05/09/17 at 09:00 Potassium Chloride 50 ml @ 50 mls/hr Q1H IV ; Start 05/09/17 at 08:15; Stop at 10:14; Status Cancel Potassium Chloride 50 ml @ 50 mls/hr DAILY IV Last administered on 05/11/17 08:51; Start 05/10/17 at 09:00; Stop 05/11/17 at 09:59; Status DC Potassium Chloride 50 ml @ 50 mls/hr Q1H IV Last administered on 05/09/17 10: 00; Start 05/09/17 at 09:00; Stop 05/09/17 at 10:59; Status DC Potassium Chloride (Klor-Con) 40 meq 1X ONCE PO ; Start 05/09/17 at 11:00; Stop 05/09/17 at 11:01; Status DC Potassium Chloride/Dextrose/ Sod Cl 1,000 ml @ 75 mls/hr [id number] IV Last administered on 05/10/17 17:58; Start 05/09/17 at 11:00; Stop 05/11/17 at 08 :26; Status DC Calcium Gluconate (Calcium Gluconate) 1,000 mg 1X ONCE IVP Last administered on 05/09/17 14:28; Start 05/09/17 at 14:00; Stop 05/09/17 at 14:01; Status DC Info 1 each PRN DAILY PRN MC SEE COMMENTS Last administered on 05/15/17 14:02 ; Start 05/09/17 at 13:45 Amiodarone HCl 150 mg/Dextrose 103 ml @ 618 mls/hr 1X ONCE IV Last administered on 05/09/17 14:28; Start 05/09/17 at 14:00; Stop 05/09/17 at 14 :09; Status DC Amiodarone HCl (Cordarone) 400 mg BID PO Last administered on 05/16/17 08:58 ; Start 05/09/17 at 21:00 Sodium Chloride 90 meq/Potassium Chloride 50 meq/ Potassium Phosphate 13.6 mmol/ Magnesium Sulfate 10 meq/ Calcium Gluconate 10 meq/ Multivitamins 10 ml/Chromium / Copper/Manganese/ Seleni/Zn 1 ml/ Total Parenteral Nutrition/Amino Acids/ Dextrose/ Fat Emulsion Intravenous 1,387.0013 ml @ 3.625 mls/hr TPN CONT IV ; Start 05/09/17 at 22:00; Status UNV Sodium Chloride 90 meq/Potassium Acetate 70 meq/ Potassium Phosphate 18 mmol/ Magnesium Sulfate 12 meq/Calcium Gluconate 10 meq/ Multivitamins 10 ml/Chromium / Copper/Manganese/ Seleni/Zn 1 ml/ Total Parenteral Nutrition/Amino Acids/ Dextrose/ Fat Emulsion Intravenous 1,512 ml @ 63 mls/hr TPN CONT IV Last administered on 05/09/17 21:39; Start 05/09/17 at 22:00; Stop 05/10/17 at 21 :59; Status DC Magnesium Sulfate/ Dextrose 50 ml @ 25 mls/hr 1X ONCE IV ; Start 05/09/17 at 15:15; Stop 05/09/17 at 17:14; Status DC Procainamide HCl 2000 mg/Dextrose 520 ml @ 31.2 mls/hr CONT PRN IV SEE I/O RECORD Last administered on 05/11/17 21:55; Start 05/09/17 at 16:00; Stop at 11:28; Status DC Procainamide HCl 500 mg/Dextrose 55 ml @ 110 mls/hr 1X ONCE IV Last administered on 05/09/17 15:49; Start 05/09/17 at 15:30; Stop 05/09/17 at 15 :59; Status DC Procainamide HCl 2000 mg/Dextrose 520 ml @ 0 mls/hr CONT PRN IV SEE I/O RECORD ; Start 05/09/17 at 15:45; Status UNV Sodium Phosphate 30 mmol/Dextrose 260 ml @ 65 mls/hr 1X ONCE IV ; Start 05/09 at 17:45; Stop 05/09/17 at 21:44; Status Cancel Sodium Phosphate 20 mmol/Dextrose 256.6667 ml @ 64.167 m... 1X ONCE IV Last administered on 05/09/17 18:10; Start 05/09/17 at 17:45; Stop 05/09/17 at 21 :44; Status DC Magnesium Sulfate/ Dextrose 100 ml @ 100 mls/hr 1X ONCE IV Last administered on 05/10/17 01:48; Start 05/10/17 at 02:00; Stop 05/10/17 at 02:59; Status DC Midazolam HCl (Versed) 1 mg PRN Q2HR PRN IV SEDATION; Start 05/10/17 at 02:30 Midazolam HCl (Versed) 2 mg PRN Q2HR PRN IV SEDATION; Start 05/10/17 at 02:30 Amiodarone HCl 900 mg/Dextrose 518 ml @ 0 mls/hr CONT PRN IV SEE I/O RECORD; Start 05/10/17 at 03:45; Status UNV Amiodarone HCl 450 mg/Dextrose 259 ml @ 17.26 mls/ hr CONT PRN IV SEE I/O RECORD Last administered on 05/11/17 05:43; Start 05/10/17 at 04:00 Lidocaine HCl/ Dextrose 500 ml @ 0 mls/hr CONT PRN IV SEE I/O RECORD Last administered on 05/12/17 05:40; Start 05/10/17 at 04:00; Stop 05/12/17 at 17 :20; Status DC Lidocaine HCl (Lidocaine HCl 2% Abboject) 100 mg 1X ONCE IV Last administered on 05/10/17 04:13; Start 05/10/17 at 04:30; Stop 05/10/17 at 04:31; Status DC Amiodarone HCl (Cordarone) 300 mg STK-MED ONCE .ROUTE ; Start 05/09/17 at 23:00 ; Stop 05/10/17 at 11:00; Status DC Atropine Sulfate 1 mg STK-MED ONCE .ROUTE ; Start 05/09/17 at 23:00; Stop at 11:00; Status DC Epinephrine HCl (EPINEPHrine SYRINGE) 3 mg STK-MED ONCE .ROUTE ; Start at 23:00; Stop 05/10/17 at 11:00; Status DC Lidocaine HCl (Lidocaine HCl 2% Abboject) 100 mg STK-MED ONCE .ROUTE ; Start at 23:00; Stop 05/10/17 at 11:00; Status DC Magnesium Sulfate/ Dextrose (Magnesium Sulfate PREMIX 1GM) 2 gm STK-MED ONCE IV ; Start 05/09/17 at 23:00; Stop 05/10/17 at 11:00; Status DC Potassium Phosphate 13.6 mmol/Dextrose 104.5333 ml @ 52.267 m... ONCE ONCE IV Last administered on 05/10/17 15:54; Start 05/10/17 at 14:00; Stop at 15:59; Status DC Sodium Acetate 90 meq/Potassium Chloride 70 meq/ Potassium Phosphate 20.4 mmol/ Magnesium Sulfate 18 meq/ Calcium Gluconate 10 meq/ Multivitamins 10 ml/Chromium / Copper/Manganese/ Seleni/Zn 1 ml/ Total Parenteral Nutrition/Amino Acids/ Dextrose/ Fat Emulsion Intravenous 1,512 ml @ 63 mls/hr TPN CONT IV Last administered on 05/10/17 22:00; Start 05/10/17 at 22:00; Stop 05/11/17 at 21 :59; Status DC Lidocaine/Sodium Bicarbonate (Buffered Lidocaine 1%) 20 ml STK-MED ONCE IJ ; Start 05/10/17 at 13:45; Stop 05/10/17 at 13:46; Status DC Lidocaine/Sodium Bicarbonate (Buffered Lidocaine 1%) 3 ml 1X ONCE IJ Last administered on 05/10/17 13:45; Start 05/10/17 at 13:45; Stop 05/10/17 at 13 :57; Status DC Sodium Chloride 250 ml @ 250 mls/hr 1X ONCE IV ; Start 05/10/17 at 13:45; Stop 05/10/17 at 14:44; Status DC Albuterol Sulfate (Ventolin Neb Soln) 2.5 mg 1X ONCE NEB Last administered on 05/10/17 19:54; Start 05/10/17 at 20:00; Stop 05/10/17 at 20:01; Status DC Furosemide (Lasix) 40 mg 1X ONCE IVP Last administered on 05/10/17 21:22; Start 05/10/17 at 21:30; Stop 05/10/17 at 21:31; Status DC Dobutamine HCl/ Dextrose 250 ml @ 0 mls/hr CONT PRN IV SEE I/O RECORD Last administered on 05/13/17 20:58; Start 05/10/17 at 21:15 Sodium Acetate 120 meq/Potassium Chloride 70 meq/ Potassium Phosphate 27.2 mmol/ Magnesium Sulfate 22 meq/ Calcium Gluconate 5 meq/ Multivitamins 10 ml/Chromium / Copper/Manganese/ Seleni/Zn 1 ml/ Total Parenteral Nutrition/Amino Acids/ Dextrose/ Fat Emulsion Intravenous 1,512 ml @ 63 mls/hr TPN CONT IV ; Start 05/11/17 at 22:00; Stop 05/12/17 at 21:59; Status Cancel Potassium Phosphate 13.6 mmol/Dextrose 104.5333 ml @ 52.267 m... ONCE ONCE IV Last administered on 05/11/17 13:24; Start 05/11/17 at 13:00; Stop at 14:59; Status DC Sodium Acetate 120 meq/Potassium Chloride 70 meq/ Potassium Phosphate 25 mmol/ Magnesium Sulfate 22 meq/Calcium Gluconate 5 meq/ Multivitamins 10 ml/Chromium/ Copper/Manganese/ Seleni/Zn 1 ml/ Total Parenteral Nutrition/Amino Acids/ Dextrose/ Fat Emulsion Intravenous 1,512 ml @ 63 mls/hr TPN CONT IV Last administered on 05/11/17 21:56; Start 05/11/17 at 22:00; Stop 05/12/17 at 21 :59; Status DC Furosemide (Lasix) 40 mg DAILY IVP Last administered on 05/16/17 08:57; Start 05/12/17 at 09:00 Sodium Acetate 120 meq/Potassium Chloride 70 meq/ Potassium Phosphate 25 mmol/ Magnesium Sulfate 22 meq/Calcium Gluconate 5 meq/ Multivitamins 10 ml/Chromium/ Copper/Manganese/ Seleni/Zn 1 ml/ Total Parenteral Nutrition/Amino Acids/ Dextrose/ Fat Emulsion Intravenous 1,512 ml @ 63 mls/hr TPN CONT IV Last administered on 05/12/17 22:50; Start 05/12/17 at 22:00; Stop 05/13/17 at 21 :59; Status DC Magnesium Sulfate/ Dextrose (Magnesium Sulfate PREMIX 1GM) 2 gm STK-MED ONCE IV ; Start 05/05/17 at 12:00; Stop 05/12/17 at 17:24; Status DC Sodium Acetate 120 meq/Potassium Chloride 70 meq/ Potassium Phosphate 25 mmol/ Magnesium Sulfate 22 meq/Calcium Gluconate 5 meq/ Multivitamins 10 ml/Chromium/ Copper/Manganese/ Seleni/Zn 1 ml/ Sodium Chloride 40 meq/Total Parenteral Nutrition/Amino Acids/Dextrose/ Fat Emulsion Intravenous 1,512 ml @ 63 mls/hr TPN CONT IV Last administered on 05/13/17 23:09; Start 05/13/17 at 22:00; Stop 05/14/17 at 21:59; Status DC Iohexol (Omnipaque 240 Mg/ml) 30 ml 1X ONCE PO ; Start 05/14/17 at 09:15; Stop 05/14/17 at 09:16; Status DC Iohexol (Omnipaque 300 Mg/ml) 75 ml 1X ONCE IV ; Start 05/14/17 at 09:15; Stop 05/14/17 at 09:16; Status DC Info (Do NOT chart on this entry -- for MONITORING) 1 each PRN DAILY PRN MC SEE COMMENTS; Start 05/14/17 at 09:15; Stop 05/15/17 at 13:59; Status DC Heparin Sodium/ Sodium Chloride 500 ml @ As Directed STK-MED ONCE .ROUTE ; Start 05/14/17 at 12:16; Stop 05/14/17 at 12:17; Status DC Lidocaine HCl 20 ml STK-MED ONCE .ROUTE ; Start 05/14/17 at 12:17; Stop at 12:18; Status DC Iohexol (Omnipaque 300 Mg/ml) 100 ml STK-MED ONCE .ROUTE ; Start 05/14/17 at 12 :17; Stop 05/14/17 at 12:18; Status DC Sodium Acetate 120 meq/Potassium Chloride 70 meq/ Potassium Phosphate 18 mmol/ Magnesium Sulfate 22 meq/Calcium Gluconate 5 meq/ Multivitamins 10 ml/Chromium/ Copper/Manganese/ Seleni/Zn 1 ml/ Sodium Chloride 40 meq/Total Parenteral Nutrition/Amino Acids/Dextrose/ Fat Emulsion Intravenous 1,512 ml @ 63 mls/hr TPN CONT IV Last administered on 05/14/17t 20:42; Start 05/14/17 at 22:00; Stop 05/15/17 at 21:59; Status DC Fentanyl Citrate (Fentanyl 2ml Vial) 100 mcg STK-MED ONCE .ROUTE ; Start at 12:56; Stop 05/14/17 at 12:57; Status DC Midazolam HCl (Versed) 2 mg STK-MED ONCE .ROUTE ; Start 05/14/17 at 12:56; Stop 05/14/17 at 12:57; Status DC Heparin Sodium/ Sodium Chloride 1,000 unit 1X ONCE IART Last administered on 05/14/17t 13:30; Start 05/14/17 at 13:30; Stop 05/14/17 at 13:37; Status DC Midazolam HCl (Versed) 1 mg 1X ONCE IV Last administered on 05/14/17 13:30; Start 05/14/17 at 13:30; Stop 05/14/17 at 13:37; Status DC Iohexol (Omnipaque 300 Mg/ml) 54 ml 1X ONCE IART Last administered on 13:30; Start 05/14/17 at 13:30; Stop 05/14/17 at 13:37; Status DC Lidocaine HCl 20 ml 1X ONCE IJ Last administered on 05/14/17 13:30; Start 05/14/17 at 13:30; Stop 05/14/17 at 13:37; Status DC Iohexol (Omnipaque 240 Mg/ml) 50 ml 1X ONCE PO Last administered on 08:00; Start 05/15/17 at 08:00; Stop 05/15/17 at 08:10; Status DC Info (Do NOT chart on this entry -- for MONITORING) 1 each PRN DAILY PRN MC SEE COMMENTS; Start 05/15/17 at 08:15; Stop 05/15/17 at 13:59; Status DC Iohexol (Omnipaque 300 Mg/ml) 75 ml 1X ONCE IV Last administered on 09:34; Start 05/15/17 at 09:30; Stop 05/15/17 at 09:31; Status DC Info (Do NOT chart on this entry -- for MONITORING) 1 each PRN DAILY PRN MC SEE COMMENTS; Start 05/15/17 at 09:30; Stop 05/17/17 at 09:29 Ceftriaxone Sodium 1 gm/ Dextrose 50 ml @ 100 mls/hr Q24H IV ; Start 05/15/17 at 11:00; Stop 05/15/17 at 11:01; Status DC Sodium Acetate 120 meq/Potassium Chloride 70 meq/ Potassium Phosphate 18 mmol/ Magnesium Sulfate 22 meq/Calcium Gluconate 5 meq/ Multivitamins 10 ml/Chromium/ Copper/Manganese/ Seleni/Zn 1 ml/ Sodium Chloride 40 meq/Total Parenteral Nutrition/Amino Acids/Dextrose/ Fat Emulsion Intravenous 1,512 ml @ 63 mls/hr TPN CONT IV Last administered on 05/15/17 21:05; Start 05/15/17 at 22:00; Stop 05/16/17 at 21:59 Active Scripts Active Reported Levofloxacin 500 Mg Tablet 500 Mg PO DAILY Tramadol Hcl 50 Mg Tablet 50 Mg PO Q6H PRN Ondansetron Hcl 4 Mg Tablet 8 Mg PO BID PRN Cunningham 5-325 Tablet (Acetaminophen/Hydrocodone Bitart) 1 Each Tablet 1-2 Tab PO Q4HRS PRN Atorvastatin Calcium 40 Mg Tablet 1 Tab PO DAILY Metoprolol Tartrate 25 Mg Tablet 1 Tab PO BID Pantoprazole Sodium 40 Mg Tablet.dr 1 Tab PO DAILY Diazepam 5 Mg Tablet 5 Mg PO TID Venlafaxine Hcl Er (Venlafaxine Hcl) 75 Mg Cap.er.24h 75 Mg PO DAILY Synthroid (Levothyroxine Sodium) 75 Mcg Tablet 75 Mcg PO DAILYAC Vitals/I & O Vital Sign - Last 24 Hours 05/15/17 05/15/17 05/15/17 05/15/17 15:00 15:00 15:00 19:55 Temp 97.8 97.9 97.8 97.9 Pulse 66 63 Resp 21 19 B/P (MAP) 94/53 (67) 87/52 (64) 96/53 (67) 108/54 (72) Pulse Ox 98 94 O2 Delivery Nasal Cannula Nasal Cannula O2 Flow Rate 2.0 2.0 05/15/17 05/15/17 05/15/17 05/15/17 20:06 21:03 21:03 23:55 Temp 97.7 97.7 Pulse 63 63 65 Resp 20 B/P (MAP) 108/54 108/54 135/63 (87) Pulse Ox 91 O2 Delivery Nasal Cannula Nasal Cannula O2 Flow Rate 2.0 2.0 05/16/17 05/16/17 05/16/17 05/16/17 03:15 07:00 08:58 08:58 Temp 98.2 98.6 98.2 98.6 Pulse 60 63 60 60 Resp 20 19 B/P (MAP) 100/55 (70) 121/65 (83) 100/55 100/55 Pulse Ox 94 94 O2 Delivery Nasal Cannula Nasal Cannula O2 Flow Rate 2.0 2.0 05/16/17 05/16/17 09:05 10:53 O2 Delivery Nasal Cannula Nasal Cannula O2 Flow Rate 2.0 2.0 Intake and Output 05/16/17 05/16/17 05/17/17 15:00 23:00 07:00 Intake Total 400 ml Output Total 250 ml Balance 150 ml Nutrition Consultation Dietary Evaluation: Recommendations by RD: Increase Calorie Intake, PPN/TPN Comments: Continue current TPN infusion: 225 g dextrose, 60 g AA, 20 g lipid Encouraged continued improving PO intake Can dc TPN once PO intake meeting > 65% est needs Expected Outcomes/Goals: TPN infusion initiated and meeting > 75% est needs within 24 - 48 hrs - met, new goal established 05/14 05/14: Goal - TPN and PO intake to meet > 75% est needs Malnutrition Findings: Food and Nutrition Intake (Mod: <75% est energy req 7days Weight Status: Overweight NEO ASHRAF MD May 16, 2017 11:46
[2017-05-16] MEDS: TPN PER PHARMACY MC PRN (12:12)
[2017-05-16 15:00] VITALS: BP_SYST 102; BP_SYST 97; BP_DIAS 50; BP_DIAS 54
[2017-05-16 19:22] VITALS: BP 98/54
[2017-05-16] MEDS ORDERED: [UNRECOGNIZED DRUG - OTHER] IV SCH ×11 (22:00)
[2017-05-16] MEDS ORDERED: DEXTROSE 70% IV SCH ×11 (22:00)
[2017-05-16] MEDS ORDERED: TOTAL PARENTERAL NUTRITION IV SCH ×11 (22:00)
[2017-05-16] MEDS ORDERED: AMINO ACIDS IV SCH ×11 (22:00)
[2017-05-16 22:55] VITALS: BP 106/60
[2017-05-17 03:05] VITALS: BP 134/61
[2017-05-17 07:00] VITALS: BP 98/57
[2017-05-17 07:01] LABS: CALCIUM 8.3 mg/dL (8.5-10.1); CREATININE 0.9 mg/dL (0.6-1.0); GFR 61.2; MAGNESIUM 2.2 mg/dL (1.8-2.4); PHOSPHORUS 4.4 mg/dL (2.6-4.7); POTASSIUM 4.2 mmol/L (3.5-5.1)
--- NOTE | 2017-05-17 08:29 | PDOC ---
GENERAL General: vss and afebrile. awake and alert. son in attendance. still eating poorly and TPN ongoing. still quite weak and snu eval in. lots chest discomfort from rib fractures and explained healing process to them. some cough with decent breath sounds, heart regular, abdomen benign. encouraged physical activity and nutrition. will do calorie count in hopes doing well enough to dc TPN and transfer to snu soon. BMP ok. Problems: VITAL SIGNS Vital Signs: Vital Signs Date Time Temp Pulse Resp B/P (MAP) Pulse Ox O2 Delivery O2 Flow Rate FiO2 05/17/17 07:00 97.8 60 19 98/57 (71) 90 Nasal Cannula 2.0 97.8 I & O I & O Intake and Output 05/17/17 06:59 Intake Total 3011 ml Output Total 1175 ml Balance 1836 ml Intake Oral 1625 ml IV Total 1386 ml Output Urine Total 1025 ml Stool Total 150 ml ALLERGIES Allergies: Allergies Coded Allergies Type Severity Reaction Last Updated Verified codeine Adverse Reaction Intermediate Patient states hallucinations 10/19/16 Yes MEDS Medications: Current Medications Medications (Trade) Dose Ordered Sig/Fannie Start Time Stop Time Status Last Admin Dose Admin Acyclovir (Zovirax) 400 mg [id number] 05/06/17 09:00 05/16/17 21:30 400 MG Albuterol Sulfate (Ventolin Neb Soln) 2.5 mg 1X ONCE 05/10/17 20:00 05/10/17 20:01 DC 05/10/17 19:54 2.5 MG Amiodarone HCl (Cordarone) 300 mg STK-MED ONCE 05/09/17 23:00 05/10/17 11:00 DC Amiodarone HCl 150 mg/Dextrose 103 ml @ 618 mls/hr 1X ONCE 05/09/17 14:00 05/09/17 14:09 DC 05/09/17 14:28 618 MLS/HR Amiodarone HCl 450 mg/Dextrose 259 ml @ 17.26 mls/ hr CONT PRN 05/10/17 04:00 05/11/17 05:43 17.26 MLS/HR Amiodarone HCl 900 mg/Dextrose 518 ml @ 0 mls/hr CONT PRN 05/10/17 03:45 UNV Atorvastatin Calcium (Lipitor) 40 mg DAILY 05/06/17 09:00 05/16/17 08:58 40 MG Atropine Sulfate 1 mg STK-MED ONCE 05/09/17 23:00 05/10/17 11:00 DC Calcium Gluconate (Calcium Gluconate) 1,000 mg 1X ONCE 05/09/17 14:00 05/09/17 14:01 DC 05/09/17 14:28 1,000 MG Ceftriaxone Sodium 1 gm/ Dextrose 50 ml @ 100 mls/hr Q24H 05/15/17 11:00 05/15/17 11:01 DC Ceftriaxone Sodium (Rocephin) 1 gm Q24H 05/05/17 18:00 05/13/17 08:09 DC 05/12/17 17:46 1 GM Diazepam (Valium) 5 mg TID 05/05/17 21:00 05/16/17 21:30 5 MG Dobutamine HCl/ Dextrose 250 ml @ 0 mls/hr CONT PRN 05/10/17 21:15 05/13/17 20:58 5.756 MLS/HR Doxycycline Hyclate (Vibra-Tab) 100 mg BID 05/06/17 14:00 05/12/17 07:50 DC 05/11/17 21:01 100 MG Epinephrine HCl (EPINEPHrine SYRINGE) 3 mg STK-MED ONCE 05/09/17 23:00 05/10/17 11:00 DC Fentanyl Citrate (Fentanyl 2ml Vial) 100 mcg STK-MED ONCE 05/14/17 12:56 05/14/17 12:57 DC Furosemide (Lasix) 40 mg DAILY 05/12/17 09:00 05/16/17 08:57 40 MG Heparin Sodium/ Sodium Chloride 1,000 unit 1X ONCE 05/14/17 13:30 05/14/17 13:37 DC 05/14/17 13:30 1,000 UNIT Info (Do NOT chart on this entry -- for MONITORING) 1 each PRN DAILY PRN 05/15/17 09:30 05/17/17 09:29 Iohexol (Omnipaque 240 Mg/ml) 50 ml 1X ONCE 05/15/17 08:00 05/15/17 08:10 DC 05/15/17 08:00 50 ML Iohexol (Omnipaque 300 Mg/ml) 75 ml 1X ONCE 05/15/17 09:30 05/15/17 09:31 DC 05/15/17 09:34 75 ML Levothyroxine Sodium (Synthroid) 75 mcg DAILYAC 05/06/17 07:30 05/16/17 08:58 75 MCG Lidocaine HCl 20 ml 1X ONCE 05/14/17 13:30 05/14/17 13:37 DC 05/14/17 13:30 20 ML Lidocaine HCl (Lidocaine HCl 2% Abboject) 100 mg STK-MED ONCE 05/09/17 23:00 05/10/17 11:00 DC Lidocaine HCl/ Dextrose 500 ml @ 0 mls/hr CONT PRN 05/10/17 04:00 05/12/17 17:20 DC 05/12/17 05:40 15 MLS/HR Lidocaine/Sodium Bicarbonate (Buffered Lidocaine 1%) 3 ml 1X ONCE 05/10/17 13:45 05/10/17 13:57 DC 05/10/17 13:45 3 ML Magnesium Sulfate/ Dextrose (Magnesium Sulfate PREMIX 1GM) 2 gm STK-MED ONCE 05/05/17 12:00 05/12/17 17:24 DC Metoprolol Tartrate (Lopressor) 25 mg BID 05/05/17 21:00 05/16/17 21:29 25 MG Midazolam HCl (Versed) 1 mg 1X ONCE 05/14/17 13:30 05/14/17 13:37 DC 05/14/17 13:30 1 MG Multi-Ingredient Mouthwash/Gargle (Magic Mouthwash) 10 ml PRN QID PRN 05/07/17 09:00 05/08/17 10:12 10 ML Nystatin 5 ml [id number] 05/07/17 13:00 05/16/17 17:00 5 ML Ondansetron HCl (Zofran Odt) 8 mg PRN Q12HRS PRN 05/05/17 18:30 05/11/17 11:52 8 MG Pantoprazole Sodium (Protonix) 40 mg DAILY 05/06/17 09:00 05/16/17 08:57 40 MG Potassium Chloride/Dextrose/ Sod Cl 1,000 ml @ 75 mls/hr [id number] 05/09/17 11:00 05/11/17 08:26 DC 05/10/17 17:58 75 MLS/HR Potassium Chloride/Sodium Chloride 1,000 ml @ 80 mls/hr [id number] 05/08/17 17:30 05/09/17 18:27 DC 05/09/17 05:49 80 MLS/HR Potassium Phosphate 13.6 mmol/Dextrose 104.5333 ml @ 52.267 m... ONCE ONCE 05/11/17 13:00 05/11/17 14:59 DC 05/11/17 13:24 52.267 MLS/HR Potassium Chloride (Klor-Con) 40 meq 1X ONCE 05/09/17 11:00 05/09/17 11:01 DC Procainamide HCl 500 mg/Dextrose 55 ml @ 110 mls/hr 1X ONCE 05/09/17 15:30 05/09/17 15:59 DC 05/09/17 15:49 110 MLS/HR Procainamide HCl 2000 mg/Dextrose 520 ml @ 0 mls/hr CONT PRN 05/09/17 15:45 UNV Sodium Acetate 120 meq/Potassium Chloride 70 meq/ Potassium Phosphate 18 mmol/ Magnesium Sulfate 22 meq/Calcium Gluconate 5 meq/ Multivitamins 10 ml/Chromium/ Copper/Manganese/ Seleni/Zn 1 ml/ Sodium Chloride 40 meq/Total Parenteral Nutrition/Amino Acids/Dextrose/ Fat Emulsion Intravenous 1,320 ml @ 55 mls/hr TPN CONT 05/16/17 22:00 05/17/17 21:59 05/16/17 21:47 55 MLS/HR Sodium Acetate 120 meq/Potassium Chloride 70 meq/ Potassium Phosphate 25 mmol/ Magnesium Sulfate 22 meq/Calcium Gluconate 5 meq/ Multivitamins 10 ml/Chromium/ Copper/Manganese/ Seleni/Zn 1 ml/ Sodium Chloride 40 meq/Total Parenteral Nutrition/Amino Acids/Dextrose/ Fat Emulsion Intravenous 1,512 ml @ 63 mls/hr TPN CONT 05/13/17 22:00 05/14/17 21:59 DC 05/13/17 23:09 63 MLS/HR Sodium Acetate 120 meq/Potassium Chloride 70 meq/ Potassium Phosphate 25 mmol/ Magnesium Sulfate 22 meq/Calcium Gluconate 5 meq/ Multivitamins 10 ml/Chromium/ Copper/Manganese/ Seleni/Zn 1 ml/ Total Parenteral Nutrition/Amino Acids/Dextrose/ Fat Emulsion Intravenous 1,512 ml @ 63 mls/hr TPN CONT 05/12/17 22:00 05/13/17 21:59 DC 05/12/17 22:50 63 MLS/HR Sodium Acetate 120 meq/Potassium Chloride 70 meq/ Potassium Phosphate 27.2 mmol/Magnesium Sulfate 22 meq/ Calcium Gluconate 5 meq/ Multivitamins 10 ml/Chromium/ Copper/Manganese/ Seleni/Zn 1 ml/ Total Parenteral Nutrition/Amino Acids/Dextrose/ Fat Emulsion Intravenous 1,512 ml @ 63 mls/hr TPN CONT 05/11/17 22:00 05/12/17 21:59 Cancel Sodium Acetate 90 meq/Potassium Chloride 70 meq/ Potassium Phosphate 20.4 mmol/Magnesium Sulfate 18 meq/ Calcium Gluconate 10 meq/ Multivitamins 10 ml/Chromium/ Copper/Manganese/ Seleni/Zn 1 ml/ Total Parenteral Nutrition/Amino Acids/Dextrose/ Fat Emulsion Intravenous 1,512 ml @ 63 mls/hr TPN CONT 05/10/17 22:00 05/11/17 21:59 DC 05/10/17 22:00 63 MLS/HR Sodium Bicarbonate 100 meq 1X ONCE 05/08/17 15:30 05/08/17 15:31 DC 05/08/17 16:52 100 MEQ Sodium Chloride 250 ml @ 250 mls/hr 1X ONCE 05/10/17 13:45 05/10/17 14:44 DC Sodium Chloride 90 meq/Potassium Acetate 70 meq/ Potassium Phosphate 18 mmol/ Magnesium Sulfate 12 meq/Calcium Gluconate 10 meq/ Multivitamins 10 ml/Chromium/ Copper/Manganese/ Seleni/Zn 1 ml/ Total Parenteral Nutrition/Amino Acids/Dextrose/ Fat Emulsion Intravenous 1,512 ml @ 63 mls/hr TPN CONT 05/09/17 22:00 05/10/17 21:59 DC 05/09/17 21:39 63 MLS/HR Sodium Chloride 90 meq/Potassium Chloride 50 meq/ Potassium Phosphate 13.6 mmol/Magnesium Sulfate 10 meq/ Calcium Gluconate 10 meq/ Multivitamins 10 ml/Chromium/ Copper/Manganese/ Seleni/Zn 1 ml/ Total Parenteral Nutrition/Amino Acids/Dextrose/ Fat Emulsion Intravenous 1,387.0013 ml @ 3.625 mls/hr TPN CONT 05/09/17 22:00 UNV Sodium Phosphate 20 mmol/Dextrose 256.6667 ml @ 64.167 m... 1X ONCE 05/09/17 17:45 05/09/17 21:44 DC 05/09/17 18:10 64.167 MLS/HR Sodium Phosphate 30 mmol/Dextrose 260 ml @ 65 mls/hr 1X ONCE 05/09/17 17:45 05/09/17 21:44 Cancel Tramadol HCl (Ultram) 50 mg PRN Q6HRS PRN 05/05/17 18:15 05/16/17 21:47 50 MG Vancomycin HCl 1 each 1X ONCE 05/07/17 19:00 05/07/17 19:01 Cancel Vancomycin HCl (Vanco Per Pharmacy) 1 each PRN DAILY PRN 05/05/17 18:00 05/06/17 13:10 DC 05/06/17 12:53 1 EACH Vancomycin HCl 1.75 gm/Dextrose 500 ml @ 250 mls/hr 1X ONCE 05/05/17 18:30 05/05/17 20:29 DC 05/05/17 19:21 250 MLS/HR Vancomycin HCl 1 gm/Dextrose 250 ml @ 250 mls/hr Q24H 05/06/17 19:30 05/06/17 19:30 DC Venlafaxine HCl (Effexor Xr) 75 mg DAILY 05/06/17 09:00 05/16/17 08:57 75 MG LAB Lab: Laboratory Tests Test 05/16/17 10:45 05/17/17 06:30 Sodium Level 133 mmol/L (136-145) 134 mmol/L (136-145) Potassium Level 4.2 mmol/L (3.5-5.1) 4.2 mmol/L (3.5-5.1) Chloride Level 97 mmol/L (98-107) 99 mmol/L (98-107) Carbon Dioxide Level 30 mmol/L (21-32) 33 mmol/L (21-32) Anion Gap 6 (6-14) 2 (6-14) Blood Urea Nitrogen 19 mg/dL (7-20) 21 mg/dL (7-20) Creatinine 1.0 mg/dL (0.6-1.0) 0.9 mg/dL (0.6-1.0) Estimated GFR (Cockcroft-Gault) 54.2 61.2 Glucose Level 102 mg/dL (70-99) 118 mg/dL (70-99) Calcium Level 8.6 mg/dL (8.5-10.1) 8.3 mg/dL (8.5-10.1) Phosphorus Level 4.3 mg/dL (2.6-4.7) 4.4 mg/dL (2.6-4.7) Magnesium Level 2.1 mg/dL (1.8-2.4) 2.2 mg/dL (1.8-2.4) Nutrition Consultation Dietary Evaluation: Recommendations by RD: Increase Calorie Intake, PPN/TPN Comments: Continue current TPN infusion: 225 g dextrose, 60 g AA, 20 g lipid Encouraged continued improving PO intake Can dc TPN once PO intake meeting > 65% est needs Expected Outcomes/Goals: TPN infusion initiated and meeting > 75% est needs within 24 - 48 hrs - met, new goal established 05/14 05/14: Goal - TPN and PO intake to meet > 75% est needs Malnutrition Findings: Food and Nutrition Intake (Mod: <75% est energy req 7days Weight Status: Overweight [email or web address] MD May 17, 2017 08:29
[2017-05-17] MEDS: ACYCLOVIR 200 MG CAPSULE. PO SCH ×3 (08:43→21:21)
[2017-05-17] MEDS: ATORVASTATIN CALCIUM 40 MG TABLET. PO SCH (08:44)
[2017-05-17] MEDS: diazePAM 5 MG TABLET PO SCH ×3 (08:44→21:19)
[2017-05-17] MEDS: PANTOPRAZOLE 40 MG TABLET.DR. PO SCH (08:44)
[2017-05-17] MEDS: AMIODARONE HCL 200 MG TABLET. PO SCH ×2 (08:44→21:18)
[2017-05-17] MEDS: METOPROLOL TART IMMED RELEASE 25 MG TABLET. PO SCH ×2 (08:44→21:18)
[2017-05-17] MEDS: LEVOTHYROXINE 75 MCG TABLET PO SCH (08:44)
[2017-05-17] MEDS: VENLAFAXINE XR 37.5 MG CAP.ER.24H. PO SCH (08:44)
[2017-05-17] MEDS: NYSTATIN 100,000 UNITS/ML 5 ML ORAL.SUSP. SWSW SCH ×5 (08:45→21:00)
[2017-05-17] MEDS: FUROSEMIDE 40 MG/4 ML VIAL. IVP SCH (08:45)
--- NOTE | 2017-05-17 09:10 | PDOC ---
PROGRESS NOTES Subjective Subjective HPI - Colon ca -s/p chemo 04/27/17. No evidence of disease after surgery ROS - no CP Objective Objective Vital Signs Date Time Temp Pulse Resp B/P (MAP) Pulse Ox O2 Delivery O2 Flow Rate FiO2 05/17/17 08:44 75 05/17/17 07:00 97.8 19 98/57 (71) 90 Nasal Cannula 2.0 97.8 Intake and Output 05/17/17 07:00 Intake Total 3011 ml Output Total 1175 ml Balance 1836 ml Intake Oral 1625 ml IV Total 1386 ml Output Urine Total 1025 ml Stool Total 150 ml Physical Exam Heart: Normal S1, Normal S2 General: Alert, Oriented X3 Lungs: Clear to auscultation Neuro: Normal speech Psych/Mental Status: Mental status NL Assessment Assessment Assessment/Plan 1. Colon ca -s/p chemo 04/27/17. No evidence of disease after surgery. No further chemo, I will cancel cycle 12. CT for restaging on 05/15/17 reveals no evidence of disease. CEA normal. 2. Urinary tract infection. Appreciate ID management. 3. Neutropenia and thrombocytopenia from chemo, monitor cbc. WBC 6.4, plt 89. 4. had code on floor - was shocked 6 times and has had some brief torsades since being in ICU, not intubated and ok bp and feels ok. Management per Dr Fernando. 5. Progressive dyspnea, multifactorial secondary to CHF, weakness from her recent chemotherapy and toxicities/ NEW CM EF 25 % I d/w Dr Fernando, agree with cardiac cath. Comment Review of Relevant I have reviewed the following items armida (where applicable) has been applied. Labs Laboratory Tests Test 05/15/17 15:23 05/16/17 10:45 05/17/17 06:30 Sodium Level 132 mmol/L (136-145) 133 mmol/L (136-145) 134 mmol/L (136-145) Potassium Level 4.0 mmol/L (3.5-5.1) 4.2 mmol/L (3.5-5.1) 4.2 mmol/L (3.5-5.1) Chloride Level 96 mmol/L (98-107) 97 mmol/L (98-107) 99 mmol/L (98-107) Carbon Dioxide Level 32 mmol/L (21-32) 30 mmol/L (21-32) 33 mmol/L (21-32) Anion Gap 4 (6-14) 6 (6-14) 2 (6-14) Blood Urea Nitrogen 20 mg/dL (7-20) 19 mg/dL (7-20) 21 mg/dL (7-20) Creatinine 0.9 mg/dL (0.6-1.0) 1.0 mg/dL (0.6-1.0) 0.9 mg/dL (0.6-1.0) Estimated GFR (Cockcroft-Gault) 61.2 54.2 61.2 Glucose Level 119 mg/dL (70-99) 102 mg/dL (70-99) 118 mg/dL (70-99) Calcium Level 8.1 mg/dL (8.5-10.1) 8.6 mg/dL (8.5-10.1) 8.3 mg/dL (8.5-10.1) Phosphorus Level 4.3 mg/dL (2.6-4.7) 4.3 mg/dL (2.6-4.7) 4.4 mg/dL (2.6-4.7) Magnesium Level 1.9 mg/dL (1.8-2.4) 2.1 mg/dL (1.8-2.4) 2.2 mg/dL (1.8-2.4) Laboratory Tests Test 05/16/17 10:45 05/17/17 06:30 Sodium Level 133 mmol/L (136-145) 134 mmol/L (136-145) Potassium Level 4.2 mmol/L (3.5-5.1) 4.2 mmol/L (3.5-5.1) Chloride Level 97 mmol/L (98-107) 99 mmol/L (98-107) Carbon Dioxide Level 30 mmol/L (21-32) 33 mmol/L (21-32) Anion Gap 6 (6-14) 2 (6-14) Blood Urea Nitrogen 19 mg/dL (7-20) 21 mg/dL (7-20) Creatinine 1.0 mg/dL (0.6-1.0) 0.9 mg/dL (0.6-1.0) Estimated GFR (Cockcroft-Gault) 54.2 61.2 Glucose Level 102 mg/dL (70-99) 118 mg/dL (70-99) Calcium Level 8.6 mg/dL (8.5-10.1) 8.3 mg/dL (8.5-10.1) Phosphorus Level 4.3 mg/dL (2.6-4.7) 4.4 mg/dL (2.6-4.7) Magnesium Level 2.1 mg/dL (1.8-2.4) 2.2 mg/dL (1.8-2.4) Microbiology 05/06/17 Urine Culture - Final, Complete 05/06/17 Urine Culture Result 1 (MARINE) - Final, Complete Medications Current Medications Ceftriaxone Sodium 1 gm/ Dextrose 50 ml @ 100 mls/hr Q24H IV ; Start 05/05/17 at 18:00; Status UNV Vancomycin HCl (Vanco Per Pharmacy) 1 each PRN DAILY PRN MC SEE COMMENTS Last administered on 05/06/17 12:53; Start 05/05/17 at 18:00; Stop 05/06/17 at 13:10 ; Status DC Ceftriaxone Sodium (Rocephin) 1 gm Q24H IVP Last administered on 05/12/17 17: 46; Start 05/05/17 at 18:00; Stop 05/13/17 at 08:09; Status DC Sodium Chloride 1,000 ml @ 75 mls/hr [id number] IV Last administered on 04:20; Start 05/05/17 at 18:15; Stop 05/08/17 at 13:44; Status DC Atorvastatin Calcium (Lipitor) 40 mg DAILY PO Last administered on 05/17/17 08:44; Start 05/06/17 at 09:00 Diazepam (Valium) 5 mg TID PO Last administered on 05/17/17 08:44; Start 05/05/17 at 21:00 Levothyroxine Sodium (Synthroid) 75 mcg DAILYAC PO Last administered on 08:44; Start 05/06/17 at 07:30 Metoprolol Tartrate (Lopressor) 25 mg BID PO Last administered on 05/17/17 08 :44; Start 05/05/17 at 21:00 Pantoprazole Sodium (Protonix) 40 mg DAILY PO Last administered on 05/17/17 08:44; Start 05/06/17 at 09:00 Tramadol HCl (Ultram) 50 mg PRN Q6HRS PRN PO PAIN Last administered on 21:47; Start 05/05/17 at 18:15 Ondansetron HCl (Zofran Odt) 8 mg PRN Q12HRS PRN PO NAUSEA/VOMITING Last administered on 05/11/17 11:52; Start 05/05/17 at 18:30 Venlafaxine HCl (Effexor Xr) 75 mg DAILY PO Last administered on 05/17/17 08: 44; Start 05/06/17 at 09:00 Vancomycin HCl 1.75 gm/Dextrose 500 ml @ 250 mls/hr 1X ONCE IV Last administered on 05/05/17 19:21; Start 05/05/17 at 18:30; Stop 05/05/17 at 20:29 ; Status DC Vancomycin HCl 1 gm/Dextrose 250 ml @ 250 mls/hr Q24H IV ; Start 05/06/17 at 19 :30; Stop 05/06/17 at 19:30; Status DC Vancomycin HCl 1 each 1X ONCE MC ; Start 05/07/17 at 19:00; Stop 05/07/17 at 19:01; Status Cancel Acyclovir (Zovirax) 400 mg [id number] PO Last administered on 05/17/17 08:43; Start 05/06/17 at 09:00 Doxycycline Hyclate (Vibra-Tab) 100 mg BID PO Last administered on 05/11/17 21:01; Start 05/06/17 at 14:00; Stop 05/12/17 at 07:50; Status DC Multi-Ingredient Mouthwash/Gargle (Magic Mouthwash) 10 ml PRN QID PRN PO MOUTH PAIN Last administered on 05/08/17 10:12; Start 05/07/17 at 09:00 Nystatin 5 ml [id number] Last administered on 05/16/17 17:00; Start at 13:00 Potassium Chloride/Dextrose/ Sod Cl 1,000 ml @ 75 mls/hr [id number] IV ; Start at 14:00; Stop 05/08/17 at 16:37; Status DC Potassium Chloride (Klor-Con) 40 meq 1X ONCE PO Last administered on 14:12; Start 05/08/17 at 14:00; Stop 05/08/17 at 14:01; Status DC Amiodarone HCl 900 mg/Dextrose 518 ml @ 34.53 mls/ hr CONT PRN IV SEE I/O RECORD Last administered on 05/09/17 14:28; Start 05/08/17 at 14:45; Stop at 14:29; Status DC Amiodarone HCl 900 mg/Dextrose 518 ml @ 0 mls/hr CONT PRN IV SEE I/O RECORD; Start 05/08/17 at 14:45; Status UNV Sodium Chloride 500 ml @ 500 mls/hr 1X ONCE IV Last administered on 15:30; Start 05/08/17 at 15:30; Stop 05/08/17 at 16:29; Status DC Sodium Bicarbonate 100 meq 1X ONCE IV Last administered on 05/08/17 16:52; Start 05/08/17 at 15:30; Stop 05/08/17 at 15:31; Status DC Magnesium Sulfate/ Dextrose 100 ml @ 100 mls/hr 1X ONCE IV Last administered on 05/08/17 16:00; Start 05/08/17 at 16:00; Stop 05/08/17 at 16:59; Status DC Magnesium Sulfate/ Dextrose 100 ml @ 100 mls/hr 1X ONCE IV Last administered on 05/08/17 16:00; Start 05/08/17 at 16:00; Stop 05/08/17 at 16:59; Status DC Potassium Chloride (Klor-Con) 40 meq [id number] PO ; Start 05/09/17 at 08:00; Stop 05/09/17 at 08:17; Status DC Potassium Chloride (Klor-Con) 40 meq 1X ONCE PO Last administered on 16:53; Start 05/08/17 at 17:00; Stop 05/08/17 at 17:01; Status DC Potassium Chloride/Sodium Chloride 1,000 ml @ 80 mls/hr [id number] IV Last administered on 05/09/17 05:49; Start 05/08/17 at 17:30; Stop 05/09/17 at 18 :27; Status DC Amiodarone HCl 150 mg/Dextrose 103 ml @ 618 mls/hr 1X ONCE IV Last administered on 05/09/17 07:22; Start 05/09/17 at 07:00; Stop 05/09/17 at 07 :09; Status DC Magnesium Sulfate/ Dextrose 50 ml @ 25 mls/hr 1X ONCE IV Last administered on 05/09/17 07:11; Start 05/09/17 at 07:00; Stop 05/09/17 at 08:59; Status DC Potassium Chloride 50 ml @ 25 mls/hr PRN Q2HRS PRN IV K-3.1 TO 3.5 Last administered on 05/09/17 11:44; Start 05/09/17 at 06:45; Stop 05/09/17 at 11 :44; Status DC Potassium Chloride 50 ml @ 25 mls/hr PRN Q2HRS PRN IV K 2.6 TO 3; Start at 06:45 Potassium Chloride 50 ml @ 25 mls/hr PRN Q2HRS PRN IV FOR K<2.6; Start at 08:00 Magnesium Sulfate/ Dextrose 100 ml @ 50 mls/hr PRN DAILY PRN IV MAG<1.8 Last administered on 05/11/17 09:59; Start 05/09/17 at 09:00 Potassium Chloride 50 ml @ 50 mls/hr Q1H IV ; Start 05/09/17 at 08:15; Stop at 10:14; Status Cancel Potassium Chloride 50 ml @ 50 mls/hr DAILY IV Last administered on 05/11/17 08:51; Start 05/10/17 at 09:00; Stop 05/11/17 at 09:59; Status DC Potassium Chloride 50 ml @ 50 mls/hr Q1H IV Last administered on 05/09/17 10: 00; Start 05/09/17 at 09:00; Stop 05/09/17 at 10:59; Status DC Potassium Chloride (Klor-Con) 40 meq 1X ONCE PO ; Start 05/09/17 at 11:00; Stop 05/09/17 at 11:01; Status DC Potassium Chloride/Dextrose/ Sod Cl 1,000 ml @ 75 mls/hr [id number] IV Last administered on 05/10/17 17:58; Start 05/09/17 at 11:00; Stop 05/11/17 at 08 :26; Status DC Calcium Gluconate (Calcium Gluconate) 1,000 mg 1X ONCE IVP Last administered on 05/09/17 14:28; Start 05/09/17 at 14:00; Stop 05/09/17 at 14:01; Status DC Info 1 each PRN DAILY PRN MC SEE COMMENTS Last administered on 05/16/17 12:12 ; Start 05/09/17 at 13:45 Amiodarone HCl 150 mg/Dextrose 103 ml @ 618 mls/hr 1X ONCE IV Last administered on 05/09/17 14:28; Start 05/09/17 at 14:00; Stop 05/09/17 at 14 :09; Status DC Amiodarone HCl (Cordarone) 400 mg BID PO Last administered on 05/17/17 08:44 ; Start 05/09/17 at 21:00 Sodium Chloride 90 meq/Potassium Chloride 50 meq/ Potassium Phosphate 13.6 mmol/ Magnesium Sulfate 10 meq/ Calcium Gluconate 10 meq/ Multivitamins 10 ml/Chromium / Copper/Manganese/ Seleni/Zn 1 ml/ Total Parenteral Nutrition/Amino Acids/ Dextrose/ Fat Emulsion Intravenous 1,387.0013 ml @ 3.625 mls/hr TPN CONT IV ; Start 05/09/17 at 22:00; Status UNV Sodium Chloride 90 meq/Potassium Acetate 70 meq/ Potassium Phosphate 18 mmol/ Magnesium Sulfate 12 meq/Calcium Gluconate 10 meq/ Multivitamins 10 ml/Chromium / Copper/Manganese/ Seleni/Zn 1 ml/ Total Parenteral Nutrition/Amino Acids/ Dextrose/ Fat Emulsion Intravenous 1,512 ml @ 63 mls/hr TPN CONT IV Last administered on 05/09/17 21:39; Start 05/09/17 at 22:00; Stop 05/10/17 at 21 :59; Status DC Magnesium Sulfate/ Dextrose 50 ml @ 25 mls/hr 1X ONCE IV ; Start 05/09/17 at 15:15; Stop 05/09/17 at 17:14; Status DC Procainamide HCl 2000 mg/Dextrose 520 ml @ 31.2 mls/hr CONT PRN IV SEE I/O RECORD Last administered on 05/11/17 21:55; Start 05/09/17 at 16:00; Stop at 11:28; Status DC Procainamide HCl 500 mg/Dextrose 55 ml @ 110 mls/hr 1X ONCE IV Last administered on 05/09/17 15:49; Start 05/09/17 at 15:30; Stop 05/09/17 at 15 :59; Status DC Procainamide HCl 2000 mg/Dextrose 520 ml @ 0 mls/hr CONT PRN IV SEE I/O RECORD ; Start 05/09/17 at 15:45; Status UNV Sodium Phosphate 30 mmol/Dextrose 260 ml @ 65 mls/hr 1X ONCE IV ; Start 05/09 at 17:45; Stop 05/09/17 at 21:44; Status Cancel Sodium Phosphate 20 mmol/Dextrose 256.6667 ml @ 64.167 m... 1X ONCE IV Last administered on 05/09/17 18:10; Start 05/09/17 at 17:45; Stop 05/09/17 at 21 :44; Status DC Magnesium Sulfate/ Dextrose 100 ml @ 100 mls/hr 1X ONCE IV Last administered on 05/10/17 01:48; Start 05/10/17 at 02:00; Stop 05/10/17 at 02:59; Status DC Midazolam HCl (Versed) 1 mg PRN Q2HR PRN IV SEDATION; Start 05/10/17 at 02:30 ; Stop 05/16/17 at 11:50; Status DC Midazolam HCl (Versed) 2 mg PRN Q2HR PRN IV SEDATION; Start 05/10/17 at 02:30 ; Stop 05/16/17 at 11:50; Status DC Amiodarone HCl 900 mg/Dextrose 518 ml @ 0 mls/hr CONT PRN IV SEE I/O RECORD; Start 05/10/17 at 03:45; Status UNV Amiodarone HCl 450 mg/Dextrose 259 ml @ 17.26 mls/ hr CONT PRN IV SEE I/O RECORD Last administered on 05/11/17 05:43; Start 05/10/17 at 04:00 Lidocaine HCl/ Dextrose 500 ml @ 0 mls/hr CONT PRN IV SEE I/O RECORD Last administered on 05/12/17 05:40; Start 05/10/17 at 04:00; Stop 05/12/17 at 17 :20; Status DC Lidocaine HCl (Lidocaine HCl 2% Abboject) 100 mg 1X ONCE IV Last administered on 05/10/17 04:13; Start 05/10/17 at 04:30; Stop 05/10/17 at 04:31; Status DC Amiodarone HCl (Cordarone) 300 mg STK-MED ONCE .ROUTE ; Start 05/09/17 at 23:00 ; Stop 05/10/17 at 11:00; Status DC Atropine Sulfate 1 mg STK-MED ONCE .ROUTE ; Start 05/09/17 at 23:00; Stop at 11:00; Status DC Epinephrine HCl (EPINEPHrine SYRINGE) 3 mg STK-MED ONCE .ROUTE ; Start at 23:00; Stop 05/10/17 at 11:00; Status DC Lidocaine HCl (Lidocaine HCl 2% Abboject) 100 mg STK-MED ONCE .ROUTE ; Start at 23:00; Stop 05/10/17 at 11:00; Status DC Magnesium Sulfate/ Dextrose (Magnesium Sulfate PREMIX 1GM) 2 gm STK-MED ONCE IV ; Start 05/09/17 at 23:00; Stop 05/10/17 at 11:00; Status DC Potassium Phosphate 13.6 mmol/Dextrose 104.5333 ml @ 52.267 m... ONCE ONCE IV Last administered on 05/10/17 15:54; Start 05/10/17 at 14:00; Stop at 15:59; Status DC Sodium Acetate 90 meq/Potassium Chloride 70 meq/ Potassium Phosphate 20.4 mmol/ Magnesium Sulfate 18 meq/ Calcium Gluconate 10 meq/ Multivitamins 10 ml/Chromium / Copper/Manganese/ Seleni/Zn 1 ml/ Total Parenteral Nutrition/Amino Acids/ Dextrose/ Fat Emulsion Intravenous 1,512 ml @ 63 mls/hr TPN CONT IV Last administered on 05/10/17 22:00; Start 05/10/17 at 22:00; Stop 05/11/17 at 21 :59; Status DC Lidocaine/Sodium Bicarbonate (Buffered Lidocaine 1%) 20 ml STK-MED ONCE IJ ; Start 05/10/17 at 13:45; Stop 05/10/17 at 13:46; Status DC Lidocaine/Sodium Bicarbonate (Buffered Lidocaine 1%) 3 ml 1X ONCE IJ Last administered on 05/10/17 13:45; Start 05/10/17 at 13:45; Stop 05/10/17 at 13 :57; Status DC Sodium Chloride 250 ml @ 250 mls/hr 1X ONCE IV ; Start 05/10/17 at 13:45; Stop 05/10/17 at 14:44; Status DC Albuterol Sulfate (Ventolin Neb Soln) 2.5 mg 1X ONCE NEB Last administered on 05/10/17 19:54; Start 05/10/17 at 20:00; Stop 05/10/17 at 20:01; Status DC Furosemide (Lasix) 40 mg 1X ONCE IVP Last administered on 05/10/17 21:22; Start 05/10/17 at 21:30; Stop 05/10/17 at 21:31; Status DC Dobutamine HCl/ Dextrose 250 ml @ 0 mls/hr CONT PRN IV SEE I/O RECORD Last administered on 05/13/17 20:58; Start 05/10/17 at 21:15 Sodium Acetate 120 meq/Potassium Chloride 70 meq/ Potassium Phosphate 27.2 mmol/ Magnesium Sulfate 22 meq/ Calcium Gluconate 5 meq/ Multivitamins 10 ml/Chromium / Copper/Manganese/ Seleni/Zn 1 ml/ Total Parenteral Nutrition/Amino Acids/ Dextrose/ Fat Emulsion Intravenous 1,512 ml @ 63 mls/hr TPN CONT IV ; Start 05/11/17 at 22:00; Stop 05/12/17 at 21:59; Status Cancel Potassium Phosphate 13.6 mmol/Dextrose 104.5333 ml @ 52.267 m... ONCE ONCE IV Last administered on 05/11/17 13:24; Start 05/11/17 at 13:00; Stop at 14:59; Status DC Sodium Acetate 120 meq/Potassium Chloride 70 meq/ Potassium Phosphate 25 mmol/ Magnesium Sulfate 22 meq/Calcium Gluconate 5 meq/ Multivitamins 10 ml/Chromium/ Copper/Manganese/ Seleni/Zn 1 ml/ Total Parenteral Nutrition/Amino Acids/ Dextrose/ Fat Emulsion Intravenous 1,512 ml @ 63 mls/hr TPN CONT IV Last administered on 05/11/17 21:56; Start 05/11/17 at 22:00; Stop 05/12/17 at 21 :59; Status DC Furosemide (Lasix) 40 mg DAILY IVP Last administered on 05/17/17 08:45; Start 05/12/17 at 09:00 Sodium Acetate 120 meq/Potassium Chloride 70 meq/ Potassium Phosphate 25 mmol/ Magnesium Sulfate 22 meq/Calcium Gluconate 5 meq/ Multivitamins 10 ml/Chromium/ Copper/Manganese/ Seleni/Zn 1 ml/ Total Parenteral Nutrition/Amino Acids/ Dextrose/ Fat Emulsion Intravenous 1,512 ml @ 63 mls/hr TPN CONT IV Last administered on 05/12/17t 22:50; Start 05/12/17 at 22:00; Stop 05/13/17 at 21 :59; Status DC Magnesium Sulfate/ Dextrose (Magnesium Sulfate PREMIX 1GM) 2 gm STK-MED ONCE IV ; Start 05/05/17 at 12:00; Stop 05/12/17 at 17:24; Status DC Sodium Acetate 120 meq/Potassium Chloride 70 meq/ Potassium Phosphate 25 mmol/ Magnesium Sulfate 22 meq/Calcium Gluconate 5 meq/ Multivitamins 10 ml/Chromium/ Copper/Manganese/ Seleni/Zn 1 ml/ Sodium Chloride 40 meq/Total Parenteral Nutrition/Amino Acids/Dextrose/ Fat Emulsion Intravenous 1,512 ml @ 63 mls/hr TPN CONT IV Last administered on 05/13/17t 23:09; Start 05/13/17 at 22:00; Stop 05/14/17 at 21:59; Status DC Iohexol (Omnipaque 240 Mg/ml) 30 ml 1X ONCE PO ; Start 05/14/17 at 09:15; Stop 05/14/17 at 09:16; Status DC Iohexol (Omnipaque 300 Mg/ml) 75 ml 1X ONCE IV ; Start 05/14/17 at 09:15; Stop 05/14/17 at 09:16; Status DC Info (Do NOT chart on this entry -- for MONITORING) 1 each PRN DAILY PRN MC SEE COMMENTS; Start 05/14/17 at 09:15; Stop 05/15/17 at 13:59; Status DC Heparin Sodium/ Sodium Chloride 500 ml @ As Directed STK-MED ONCE .ROUTE ; Start 05/14/17 at 12:16; Stop 05/14/17 at 12:17; Status DC Lidocaine HCl 20 ml STK-MED ONCE .ROUTE ; Start 05/14/17 at 12:17; Stop at 12:18; Status DC Iohexol (Omnipaque 300 Mg/ml) 100 ml STK-MED ONCE .ROUTE ; Start 05/14/17 at 12 :17; Stop 05/14/17 at 12:18; Status DC Sodium Acetate 120 meq/Potassium Chloride 70 meq/ Potassium Phosphate 18 mmol/ Magnesium Sulfate 22 meq/Calcium Gluconate 5 meq/ Multivitamins 10 ml/Chromium/ Copper/Manganese/ Seleni/Zn 1 ml/ Sodium Chloride 40 meq/Total Parenteral Nutrition/Amino Acids/Dextrose/ Fat Emulsion Intravenous 1,512 ml @ 63 mls/hr TPN CONT IV Last administered on 05/14/17 20:42; Start 05/14/17 at 22:00; Stop 05/15/17 at 21:59; Status DC Fentanyl Citrate (Fentanyl 2ml Vial) 100 mcg STK-MED ONCE .ROUTE ; Start at 12:56; Stop 05/14/17 at 12:57; Status DC Midazolam HCl (Versed) 2 mg STK-MED ONCE .ROUTE ; Start 05/14/17 at 12:56; Stop 05/14/17 at 12:57; Status DC Heparin Sodium/ Sodium Chloride 1,000 unit 1X ONCE IART Last administered on 05/14/17 13:30; Start 05/14/17 at 13:30; Stop 05/14/17 at 13:37; Status DC Midazolam HCl (Versed) 1 mg 1X ONCE IV Last administered on 05/14/17 13:30; Start 05/14/17 at 13:30; Stop 05/14/17 at 13:37; Status DC Iohexol (Omnipaque 300 Mg/ml) 54 ml 1X ONCE IART Last administered on 13:30; Start 05/14/17 at 13:30; Stop 05/14/17 at 13:37; Status DC Lidocaine HCl 20 ml 1X ONCE IJ Last administered on 05/14/17 13:30; Start 05/14/17 at 13:30; Stop 05/14/17 at 13:37; Status DC Iohexol (Omnipaque 240 Mg/ml) 50 ml 1X ONCE PO Last administered on 08:00; Start 05/15/17 at 08:00; Stop 05/15/17 at 08:10; Status DC Info (Do NOT chart on this entry -- for MONITORING) 1 each PRN DAILY PRN MC SEE COMMENTS; Start 05/15/17 at 08:15; Stop 05/15/17 at 13:59; Status DC Iohexol (Omnipaque 300 Mg/ml) 75 ml 1X ONCE IV Last administered on 09:34; Start 05/15/17 at 09:30; Stop 05/15/17 at 09:31; Status DC Info (Do NOT chart on this entry -- for MONITORING) 1 each PRN DAILY PRN MC SEE COMMENTS; Start 05/15/17 at 09:30; Stop 05/17/17 at 09:29 Ceftriaxone Sodium 1 gm/ Dextrose 50 ml @ 100 mls/hr Q24H IV ; Start 05/15/17 at 11:00; Stop 05/15/17 at 11:01; Status DC Sodium Acetate 120 meq/Potassium Chloride 70 meq/ Potassium Phosphate 18 mmol/ Magnesium Sulfate 22 meq/Calcium Gluconate 5 meq/ Multivitamins 10 ml/Chromium/ Copper/Manganese/ Seleni/Zn 1 ml/ Sodium Chloride 40 meq/Total Parenteral Nutrition/Amino Acids/Dextrose/ Fat Emulsion Intravenous 1,512 ml @ 63 mls/hr TPN CONT IV Last administered on 05/15/17 21:05; Start 05/15/17 at 22:00; Stop 05/16/17 at 21:59; Status DC Sodium Acetate 120 meq/Potassium Chloride 70 meq/ Potassium Phosphate 18 mmol/ Magnesium Sulfate 22 meq/Calcium Gluconate 5 meq/ Multivitamins 10 ml/Chromium/ Copper/Manganese/ Seleni/Zn 1 ml/ Sodium Chloride 40 meq/Total Parenteral Nutrition/Amino Acids/Dextrose/ Fat Emulsion Intravenous 1,320 ml @ 55 mls/hr TPN CONT IV Last administered on 05/16/17 21:47; Start 05/16/17 at 22:00; Stop 05/17/17 at 21:59 Active Scripts Active Reported Levofloxacin 500 Mg Tablet 500 Mg PO DAILY Tramadol Hcl 50 Mg Tablet 50 Mg PO Q6H PRN Ondansetron Hcl 4 Mg Tablet 8 Mg PO BID PRN [place] 5-325 Tablet (Acetaminophen/Hydrocodone Bitart) 1 Each Tablet 1-2 Tab PO Q4HRS PRN Atorvastatin Calcium 40 Mg Tablet 1 Tab PO DAILY Metoprolol Tartrate 25 Mg Tablet 1 Tab PO BID Pantoprazole Sodium 40 Mg Tablet.dr 1 Tab PO DAILY Diazepam 5 Mg Tablet 5 Mg PO TID Venlafaxine Hcl Er (Venlafaxine Hcl) 75 Mg Cap.er.24h 75 Mg PO DAILY Synthroid (Levothyroxine Sodium) 75 Mcg Tablet 75 Mcg PO DAILYAC Vitals/I & O Vital Sign - Last 24 Hours 05/16/17 05/16/17 05/16/17 05/16/17 11:00 14:35 15:00 15:00 Temp 98.2 98.6 98.2 98.6 Pulse 62 66 Resp 19 B/P (MAP) 135/62 (86) 102/50 (67) 97/54 (68) Pulse Ox 98 98 96 O2 Delivery Nasal Cannula Nasal Cannula Nasal Cannula O2 Flow Rate 2.0 2.0 2.0 05/16/17 05/16/17 05/16/17 05/16/17 19:22 19:45 21:29 21:30 Temp 97.8 97.8 Pulse 63 63 63 Resp 19 B/P (MAP) 98/54 (69) 98/54 98/54 Pulse Ox 97 O2 Delivery Nasal Cannula Nasal Cannula O2 Flow Rate 2.0 2.0 05/16/17 05/16/17 05/16/17 05/17/17 21:47 22:47 22:55 03:05 Temp 97.9 98.0 97.9 98.0 Pulse 63 58 Resp 22 B/P (MAP) 106/60 (75) 134/61 (85) Pulse Ox 97 94 96 94 O2 Delivery Nasal Cannula Nasal Cannula Nasal Cannula Nasal Cannula O2 Flow Rate 2.0 2.0 2.0 2.0 05/17/17 05/17/17 05/17/17 07:00 08:44 08:44 Temp 97.8 97.8 Pulse 60 70 75 Resp 19 B/P (MAP) 98/57 (71) Pulse Ox 90 O2 Delivery Nasal Cannula O2 Flow Rate 2.0 Intake and Output 05/16/17 05/16/17 05/17/17 15:00 23:00 07:00 Intake Total 550 ml 1431 ml 1030 ml Output Total 250 ml 425 ml 500 ml Balance 300 ml 1006 ml 530 ml Nutrition Consultation Dietary Evaluation: Recommendations by RD: Increase Calorie Intake, PPN/TPN Comments: Continue current TPN infusion: 225 g dextrose, 60 g AA, 20 g lipid Encouraged continued improving PO intake Can dc TPN once PO intake meeting > 65% est needs Expected Outcomes/Goals: TPN infusion initiated and meeting > 75% est needs within 24 - 48 hrs - met, new goal established 05/14 05/14: Goal - TPN and PO intake to meet > 75% est needs Malnutrition Findings: Food and Nutrition Intake (Mod: <75% est energy req 7days Weight Status: Overweight DANIEL MORALEZ MD May 17, 2017 09:10
--- NOTE | 2017-05-17 09:16 | PDOC ---
PROGRESS NOTES Subjective Subjective Patient was resting in bed this AM with son by side. Vital signs stable and patient afebrile this morning. Patient still has much chest and rib discomfort secondary to rib fractures. She is coughing up clear phlegm. Complains that she is slightly short of breath. Denies chest pain or increased LE edema. Continues to be in sinus rhythm. Patient still weak and does not feel that she is strong enough to go straight home. She agrees with the plan to be transferred to a detention facility. No additional concerns at this time. Objective Objective Vital Signs Date Time Temp Pulse Resp B/P (MAP) Pulse Ox O2 Delivery O2 Flow Rate FiO2 05/17/17 08:44 75 05/17/17 07:00 97.8 19 98/57 (71) 90 Nasal Cannula 2.0 97.8 Intake and Output 05/17/17 06:59 Intake Total 3011 ml Output Total 1175 ml Balance 1836 ml Intake Oral 1625 ml IV Total 1386 ml Output Urine Total 1025 ml Stool Total 150 ml Physical Exam Neck: No JVD COMMENT Alert, Awake, Oriented No changes in cardiac exam No LE edema b/l Lungs CTAB Diagnosis RESPIRATORY INFECTION: Bronchitis Plan Plan of Care CHF- Patient with hx code on floor during this hospitalization - was shocked 6 times and has had some brief torsades since being in ICU. BP currently stable. Patient continues to improve slowly. Continue Amiodarone at present dose. Continue this dose for 6 more days and then decreased to 200mg/day. Agree with plan to transfer patient to SN[facility] . Comment Review of Relevant I have reviewed the following items armida (where applicable) has been applied. Labs Laboratory Tests Test 05/15/17 15:23 05/16/17 10:45 05/17/17 06:30 Sodium Level 132 mmol/L (136-145) 133 mmol/L (136-145) 134 mmol/L (136-145) Potassium Level 4.0 mmol/L (3.5-5.1) 4.2 mmol/L (3.5-5.1) 4.2 mmol/L (3.5-5.1) Chloride Level 96 mmol/L (98-107) 97 mmol/L (98-107) 99 mmol/L (98-107) Carbon Dioxide Level 32 mmol/L (21-32) 30 mmol/L (21-32) 33 mmol/L (21-32) Anion Gap 4 (6-14) 6 (6-14) 2 (6-14) Blood Urea Nitrogen 20 mg/dL (7-20) 19 mg/dL (7-20) 21 mg/dL (7-20) Creatinine 0.9 mg/dL (0.6-1.0) 1.0 mg/dL (0.6-1.0) 0.9 mg/dL (0.6-1.0) Estimated GFR (Cockcroft-Gault) 61.2 54.2 61.2 Glucose Level 119 mg/dL (70-99) 102 mg/dL (70-99) 118 mg/dL (70-99) Calcium Level 8.1 mg/dL (8.5-10.1) 8.6 mg/dL (8.5-10.1) 8.3 mg/dL (8.5-10.1) Phosphorus Level 4.3 mg/dL (2.6-4.7) 4.3 mg/dL (2.6-4.7) 4.4 mg/dL (2.6-4.7) Magnesium Level 1.9 mg/dL (1.8-2.4) 2.1 mg/dL (1.8-2.4) 2.2 mg/dL (1.8-2.4) Laboratory Tests Test 05/16/17 10:45 05/17/17 06:30 Sodium Level 133 mmol/L (136-145) 134 mmol/L (136-145) Potassium Level 4.2 mmol/L (3.5-5.1) 4.2 mmol/L (3.5-5.1) Chloride Level 97 mmol/L (98-107) 99 mmol/L (98-107) Carbon Dioxide Level 30 mmol/L (21-32) 33 mmol/L (21-32) Anion Gap 6 (6-14) 2 (6-14) Blood Urea Nitrogen 19 mg/dL (7-20) 21 mg/dL (7-20) Creatinine 1.0 mg/dL (0.6-1.0) 0.9 mg/dL (0.6-1.0) Estimated GFR (Cockcroft-Gault) 54.2 61.2 Glucose Level 102 mg/dL (70-99) 118 mg/dL (70-99) Calcium Level 8.6 mg/dL (8.5-10.1) 8.3 mg/dL (8.5-10.1) Phosphorus Level 4.3 mg/dL (2.6-4.7) 4.4 mg/dL (2.6-4.7) Magnesium Level 2.1 mg/dL (1.8-2.4) 2.2 mg/dL (1.8-2.4) Microbiology 05/06/17 Urine Culture - Final, Complete 05/06/17 Urine Culture Result 1 (MARINE) - Final, Complete Medications Current Medications Ceftriaxone Sodium 1 gm/ Dextrose 50 ml @ 100 mls/hr Q24H IV ; Start 05/05/17 at 18:00; Status UNV Vancomycin HCl (Vanco Per Pharmacy) 1 each PRN DAILY PRN MC SEE COMMENTS Last administered on 05/06/17 12:53; Start 05/05/17 at 18:00; Stop 05/06/17 at 13:10 ; Status DC Ceftriaxone Sodium (Rocephin) 1 gm Q24H IVP Last administered on 05/12/17 17: 46; Start 05/05/17 at 18:00; Stop 05/13/17 at 08:09; Status DC Sodium Chloride 1,000 ml @ 75 mls/hr [id number] IV Last administered on 04:20; Start 05/05/17 at 18:15; Stop 05/08/17 at 13:44; Status DC Atorvastatin Calcium (Lipitor) 40 mg DAILY PO Last administered on 05/17/17 08:44; Start 05/06/17 at 09:00 Diazepam (Valium) 5 mg TID PO Last administered on 05/17/17 08:44; Start 05/05/17 at 21:00 Levothyroxine Sodium (Synthroid) 75 mcg DAILYAC PO Last administered on 08:44; Start 05/06/17 at 07:30 Metoprolol Tartrate (Lopressor) 25 mg BID PO Last administered on 05/17/17 08 :44; Start 05/05/17 at 21:00 Pantoprazole Sodium (Protonix) 40 mg DAILY PO Last administered on 05/17/17 08:44; Start 05/06/17 at 09:00 Tramadol HCl (Ultram) 50 mg PRN Q6HRS PRN PO PAIN Last administered on 21:47; Start 05/05/17 at 18:15 Ondansetron HCl (Zofran Odt) 8 mg PRN Q12HRS PRN PO NAUSEA/VOMITING Last administered on 05/11/17 11:52; Start 05/05/17 at 18:30 Venlafaxine HCl (Effexor Xr) 75 mg DAILY PO Last administered on 05/17/17 08: 44; Start 05/06/17 at 09:00 Vancomycin HCl 1.75 gm/Dextrose 500 ml @ 250 mls/hr 1X ONCE IV Last administered on 05/05/17 19:21; Start 05/05/17 at 18:30; Stop 05/05/17 at 20:29 ; Status DC Vancomycin HCl 1 gm/Dextrose 250 ml @ 250 mls/hr Q24H IV ; Start 05/06/17 at 19 :30; Stop 05/06/17 at 19:30; Status DC Vancomycin HCl 1 each 1X ONCE MC ; Start 05/07/17 at 19:00; Stop 05/07/17 at 19:01; Status Cancel Acyclovir (Zovirax) 400 mg [id number] PO Last administered on 05/17/17 08:43; Start 05/06/17 at 09:00 Doxycycline Hyclate (Vibra-Tab) 100 mg BID PO Last administered on 05/11/17 21:01; Start 05/06/17 at 14:00; Stop 05/12/17 at 07:50; Status DC Multi-Ingredient Mouthwash/Gargle (Magic Mouthwash) 10 ml PRN QID PRN PO MOUTH PAIN Last administered on 05/08/17 10:12; Start 05/07/17 at 09:00 Nystatin 5 ml [id number] Last administered on 05/16/17 17:00; Start at 13:00 Potassium Chloride/Dextrose/ Sod Cl 1,000 ml @ 75 mls/hr [id number] IV ; Start at 14:00; Stop 05/08/17 at 16:37; Status DC Potassium Chloride (Klor-Con) 40 meq 1X ONCE PO Last administered on 14:12; Start 05/08/17 at 14:00; Stop 05/08/17 at 14:01; Status DC Amiodarone HCl 900 mg/Dextrose 518 ml @ 34.53 mls/ hr CONT PRN IV SEE I/O RECORD Last administered on 05/09/17 14:28; Start 05/08/17 at 14:45; Stop at 14:29; Status DC Amiodarone HCl 900 mg/Dextrose 518 ml @ 0 mls/hr CONT PRN IV SEE I/O RECORD; Start 05/08/17 at 14:45; Status UNV Sodium Chloride 500 ml @ 500 mls/hr 1X ONCE IV Last administered on 15:30; Start 05/08/17 at 15:30; Stop 05/08/17 at 16:29; Status DC Sodium Bicarbonate 100 meq 1X ONCE IV Last administered on 05/08/17 16:52; Start 05/08/17 at 15:30; Stop 05/08/17 at 15:31; Status DC Magnesium Sulfate/ Dextrose 100 ml @ 100 mls/hr 1X ONCE IV Last administered on 05/08/17 16:00; Start 05/08/17 at 16:00; Stop 05/08/17 at 16:59; Status DC Magnesium Sulfate/ Dextrose 100 ml @ 100 mls/hr 1X ONCE IV Last administered on 05/08/17 16:00; Start 05/08/17 at 16:00; Stop 05/08/17 at 16:59; Status DC Potassium Chloride (Klor-Con) 40 meq [id number] PO ; Start 05/09/17 at 08:00; Stop 05/09/17 at 08:17; Status DC Potassium Chloride (Klor-Con) 40 meq 1X ONCE PO Last administered on 16:53; Start 05/08/17 at 17:00; Stop 05/08/17 at 17:01; Status DC Potassium Chloride/Sodium Chloride 1,000 ml @ 80 mls/hr [id number] IV Last administered on 05/09/17 05:49; Start 05/08/17 at 17:30; Stop 05/09/17 at 18 :27; Status DC Amiodarone HCl 150 mg/Dextrose 103 ml @ 618 mls/hr 1X ONCE IV Last administered on 05/09/17 07:22; Start 05/09/17 at 07:00; Stop 05/09/17 at 07 :09; Status DC Magnesium Sulfate/ Dextrose 50 ml @ 25 mls/hr 1X ONCE IV Last administered on 05/09/17 07:11; Start 05/09/17 at 07:00; Stop 05/09/17 at 08:59; Status DC Potassium Chloride 50 ml @ 25 mls/hr PRN Q2HRS PRN IV K-3.1 TO 3.5 Last administered on 05/09/17 11:44; Start 05/09/17 at 06:45; Stop 05/09/17 at 11 :44; Status DC Potassium Chloride 50 ml @ 25 mls/hr PRN Q2HRS PRN IV K 2.6 TO 3; Start at 06:45 Potassium Chloride 50 ml @ 25 mls/hr PRN Q2HRS PRN IV FOR K<2.6; Start at 08:00 Magnesium Sulfate/ Dextrose 100 ml @ 50 mls/hr PRN DAILY PRN IV MAG<1.8 Last administered on 05/11/17 09:59; Start 05/09/17 at 09:00 Potassium Chloride 50 ml @ 50 mls/hr Q1H IV ; Start 05/09/17 at 08:15; Stop at 10:14; Status Cancel Potassium Chloride 50 ml @ 50 mls/hr DAILY IV Last administered on 05/11/17 08:51; Start 05/10/17 at 09:00; Stop 05/11/17 at 09:59; Status DC Potassium Chloride 50 ml @ 50 mls/hr Q1H IV Last administered on 05/09/17 10: 00; Start 05/09/17 at 09:00; Stop 05/09/17 at 10:59; Status DC Potassium Chloride (Klor-Con) 40 meq 1X ONCE PO ; Start 05/09/17 at 11:00; Stop 05/09/17 at 11:01; Status DC Potassium Chloride/Dextrose/ Sod Cl 1,000 ml @ 75 mls/hr [id number] IV Last administered on 05/10/17 17:58; Start 05/09/17 at 11:00; Stop 05/11/17 at 08 :26; Status DC Calcium Gluconate (Calcium Gluconate) 1,000 mg 1X ONCE IVP Last administered on 05/09/17 14:28; Start 05/09/17 at 14:00; Stop 05/09/17 at 14:01; Status DC Info 1 each PRN DAILY PRN MC SEE COMMENTS Last administered on 05/16/17 12:12 ; Start 05/09/17 at 13:45 Amiodarone HCl 150 mg/Dextrose 103 ml @ 618 mls/hr 1X ONCE IV Last administered on 05/09/17 14:28; Start 05/09/17 at 14:00; Stop 05/09/17 at 14 :09; Status DC Amiodarone HCl (Cordarone) 400 mg BID PO Last administered on 05/17/17 08:44 ; Start 05/09/17 at 21:00 Sodium Chloride 90 meq/Potassium Chloride 50 meq/ Potassium Phosphate 13.6 mmol/ Magnesium Sulfate 10 meq/ Calcium Gluconate 10 meq/ Multivitamins 10 ml/Chromium / Copper/Manganese/ Seleni/Zn 1 ml/ Total Parenteral Nutrition/Amino Acids/ Dextrose/ Fat Emulsion Intravenous 1,387.0013 ml @ 3.625 mls/hr TPN CONT IV ; Start 05/09/17 at 22:00; Status UNV Sodium Chloride 90 meq/Potassium Acetate 70 meq/ Potassium Phosphate 18 mmol/ Magnesium Sulfate 12 meq/Calcium Gluconate 10 meq/ Multivitamins 10 ml/Chromium / Copper/Manganese/ Seleni/Zn 1 ml/ Total Parenteral Nutrition/Amino Acids/ Dextrose/ Fat Emulsion Intravenous 1,512 ml @ 63 mls/hr TPN CONT IV Last administered on 05/09/17 21:39; Start 05/09/17 at 22:00; Stop 05/10/17 at 21 :59; Status DC Magnesium Sulfate/ Dextrose 50 ml @ 25 mls/hr 1X ONCE IV ; Start 05/09/17 at 15:15; Stop 05/09/17 at 17:14; Status DC Procainamide HCl 2000 mg/Dextrose 520 ml @ 31.2 mls/hr CONT PRN IV SEE I/O RECORD Last administered on 05/11/17 21:55; Start 05/09/17 at 16:00; Stop at 11:28; Status DC Procainamide HCl 500 mg/Dextrose 55 ml @ 110 mls/hr 1X ONCE IV Last administered on 05/09/17 15:49; Start 05/09/17 at 15:30; Stop 05/09/17 at 15 :59; Status DC Procainamide HCl 2000 mg/Dextrose 520 ml @ 0 mls/hr CONT PRN IV SEE I/O RECORD ; Start 05/09/17 at 15:45; Status UNV Sodium Phosphate 30 mmol/Dextrose 260 ml @ 65 mls/hr 1X ONCE IV ; Start 05/09 at 17:45; Stop 05/09/17 at 21:44; Status Cancel Sodium Phosphate 20 mmol/Dextrose 256.6667 ml @ 64.167 m... 1X ONCE IV Last administered on 05/09/17 18:10; Start 05/09/17 at 17:45; Stop 05/09/17 at 21 :44; Status DC Magnesium Sulfate/ Dextrose 100 ml @ 100 mls/hr 1X ONCE IV Last administered on 05/10/17 01:48; Start 05/10/17 at 02:00; Stop 05/10/17 at 02:59; Status DC Midazolam HCl (Versed) 1 mg PRN Q2HR PRN IV SEDATION; Start 05/10/17 at 02:30 ; Stop 05/16/17 at 11:50; Status DC Midazolam HCl (Versed) 2 mg PRN Q2HR PRN IV SEDATION; Start 05/10/17 at 02:30 ; Stop 05/16/17 at 11:50; Status DC Amiodarone HCl 900 mg/Dextrose 518 ml @ 0 mls/hr CONT PRN IV SEE I/O RECORD; Start 05/10/17 at 03:45; Status UNV Amiodarone HCl 450 mg/Dextrose 259 ml @ 17.26 mls/ hr CONT PRN IV SEE I/O RECORD Last administered on 05/11/17 05:43; Start 05/10/17 at 04:00 Lidocaine HCl/ Dextrose 500 ml @ 0 mls/hr CONT PRN IV SEE I/O RECORD Last administered on 05/12/17 05:40; Start 05/10/17 at 04:00; Stop 05/12/17 at 17 :20; Status DC Lidocaine HCl (Lidocaine HCl 2% Abboject) 100 mg 1X ONCE IV Last administered on 05/10/17 04:13; Start 05/10/17 at 04:30; Stop 05/10/17 at 04:31; Status DC Amiodarone HCl (Cordarone) 300 mg STK-MED ONCE .ROUTE ; Start 05/09/17 at 23:00 ; Stop 05/10/17 at 11:00; Status DC Atropine Sulfate 1 mg STK-MED ONCE .ROUTE ; Start 05/09/17 at 23:00; Stop at 11:00; Status DC Epinephrine HCl (EPINEPHrine SYRINGE) 3 mg STK-MED ONCE .ROUTE ; Start at 23:00; Stop 05/10/17 at 11:00; Status DC Lidocaine HCl (Lidocaine HCl 2% Abboject) 100 mg STK-MED ONCE .ROUTE ; Start at 23:00; Stop 05/10/17 at 11:00; Status DC Magnesium Sulfate/ Dextrose (Magnesium Sulfate PREMIX 1GM) 2 gm STK-MED ONCE IV ; Start 05/09/17 at 23:00; Stop 05/10/17 at 11:00; Status DC Potassium Phosphate 13.6 mmol/Dextrose 104.5333 ml @ 52.267 m... ONCE ONCE IV Last administered on 05/10/17 15:54; Start 05/10/17 at 14:00; Stop at 15:59; Status DC Sodium Acetate 90 meq/Potassium Chloride 70 meq/ Potassium Phosphate 20.4 mmol/ Magnesium Sulfate 18 meq/ Calcium Gluconate 10 meq/ Multivitamins 10 ml/Chromium / Copper/Manganese/ Seleni/Zn 1 ml/ Total Parenteral Nutrition/Amino Acids/ Dextrose/ Fat Emulsion Intravenous 1,512 ml @ 63 mls/hr TPN CONT IV Last administered on 05/10/17 22:00; Start 05/10/17 at 22:00; Stop 05/11/17 at 21 :59; Status DC Lidocaine/Sodium Bicarbonate (Buffered Lidocaine 1%) 20 ml STK-MED ONCE IJ ; Start 05/10/17 at 13:45; Stop 05/10/17 at 13:46; Status DC Lidocaine/Sodium Bicarbonate (Buffered Lidocaine 1%) 3 ml 1X ONCE IJ Last administered on 05/10/17 13:45; Start 05/10/17 at 13:45; Stop 05/10/17 at 13 :57; Status DC Sodium Chloride 250 ml @ 250 mls/hr 1X ONCE IV ; Start 05/10/17 at 13:45; Stop 05/10/17 at 14:44; Status DC Albuterol Sulfate (Ventolin Neb Soln) 2.5 mg 1X ONCE NEB Last administered on 05/10/17 19:54; Start 05/10/17 at 20:00; Stop 05/10/17 at 20:01; Status DC Furosemide (Lasix) 40 mg 1X ONCE IVP Last administered on 05/10/17 21:22; Start 05/10/17 at 21:30; Stop 05/10/17 at 21:31; Status DC Dobutamine HCl/ Dextrose 250 ml @ 0 mls/hr CONT PRN IV SEE I/O RECORD Last administered on 05/13/17 20:58; Start 05/10/17 at 21:15 Sodium Acetate 120 meq/Potassium Chloride 70 meq/ Potassium Phosphate 27.2 mmol/ Magnesium Sulfate 22 meq/ Calcium Gluconate 5 meq/ Multivitamins 10 ml/Chromium / Copper/Manganese/ Seleni/Zn 1 ml/ Total Parenteral Nutrition/Amino Acids/ Dextrose/ Fat Emulsion Intravenous 1,512 ml @ 63 mls/hr TPN CONT IV ; Start 05/11/17 at 22:00; Stop 05/12/17 at 21:59; Status Cancel Potassium Phosphate 13.6 mmol/Dextrose 104.5333 ml @ 52.267 m... ONCE ONCE IV Last administered on 05/11/17 13:24; Start 05/11/17 at 13:00; Stop at 14:59; Status DC Sodium Acetate 120 meq/Potassium Chloride 70 meq/ Potassium Phosphate 25 mmol/ Magnesium Sulfate 22 meq/Calcium Gluconate 5 meq/ Multivitamins 10 ml/Chromium/ Copper/Manganese/ Seleni/Zn 1 ml/ Total Parenteral Nutrition/Amino Acids/ Dextrose/ Fat Emulsion Intravenous 1,512 ml @ 63 mls/hr TPN CONT IV Last administered on 05/11/17 21:56; Start 05/11/17 at 22:00; Stop 05/12/17 at 21 :59; Status DC Furosemide (Lasix) 40 mg DAILY IVP Last administered on 05/17/17 08:45; Start 05/12/17 at 09:00 Sodium Acetate 120 meq/Potassium Chloride 70 meq/ Potassium Phosphate 25 mmol/ Magnesium Sulfate 22 meq/Calcium Gluconate 5 meq/ Multivitamins 10 ml/Chromium/ Copper/Manganese/ Seleni/Zn 1 ml/ Total Parenteral Nutrition/Amino Acids/ Dextrose/ Fat Emulsion Intravenous 1,512 ml @ 63 mls/hr TPN CONT IV Last administered on 05/12/17t 22:50; Start 05/12/17 at 22:00; Stop 05/13/17 at 21 :59; Status DC Magnesium Sulfate/ Dextrose (Magnesium Sulfate PREMIX 1GM) 2 gm STK-MED ONCE IV ; Start 05/05/17 at 12:00; Stop 05/12/17 at 17:24; Status DC Sodium Acetate 120 meq/Potassium Chloride 70 meq/ Potassium Phosphate 25 mmol/ Magnesium Sulfate 22 meq/Calcium Gluconate 5 meq/ Multivitamins 10 ml/Chromium/ Copper/Manganese/ Seleni/Zn 1 ml/ Sodium Chloride 40 meq/Total Parenteral Nutrition/Amino Acids/Dextrose/ Fat Emulsion Intravenous 1,512 ml @ 63 mls/hr TPN CONT IV Last administered on 05/13/17t 23:09; Start 05/13/17 at 22:00; Stop 05/14/17 at 21:59; Status DC Iohexol (Omnipaque 240 Mg/ml) 30 ml 1X ONCE PO ; Start 05/14/17 at 09:15; Stop 05/14/17 at 09:16; Status DC Iohexol (Omnipaque 300 Mg/ml) 75 ml 1X ONCE IV ; Start 05/14/17 at 09:15; Stop 05/14/17 at 09:16; Status DC Info (Do NOT chart on this entry -- for MONITORING) 1 each PRN DAILY PRN MC SEE COMMENTS; Start 05/14/17 at 09:15; Stop 05/15/17 at 13:59; Status DC Heparin Sodium/ Sodium Chloride 500 ml @ As Directed STK-MED ONCE .ROUTE ; Start 05/14/17 at 12:16; Stop 05/14/17 at 12:17; Status DC Lidocaine HCl 20 ml STK-MED ONCE .ROUTE ; Start 05/14/17 at 12:17; Stop at 12:18; Status DC Iohexol (Omnipaque 300 Mg/ml) 100 ml STK-MED ONCE .ROUTE ; Start 05/14/17 at 12 :17; Stop 05/14/17 at 12:18; Status DC Sodium Acetate 120 meq/Potassium Chloride 70 meq/ Potassium Phosphate 18 mmol/ Magnesium Sulfate 22 meq/Calcium Gluconate 5 meq/ Multivitamins 10 ml/Chromium/ Copper/Manganese/ Seleni/Zn 1 ml/ Sodium Chloride 40 meq/Total Parenteral Nutrition/Amino Acids/Dextrose/ Fat Emulsion Intravenous 1,512 ml @ 63 mls/hr TPN CONT IV Last administered on 05/14/17 20:42; Start 05/14/17 at 22:00; Stop 05/15/17 at 21:59; Status DC Fentanyl Citrate (Fentanyl 2ml Vial) 100 mcg STK-MED ONCE .ROUTE ; Start at 12:56; Stop 05/14/17 at 12:57; Status DC Midazolam HCl (Versed) 2 mg STK-MED ONCE .ROUTE ; Start 05/14/17 at 12:56; Stop 05/14/17 at 12:57; Status DC Heparin Sodium/ Sodium Chloride 1,000 unit 1X ONCE IART Last administered on 05/14/17 13:30; Start 05/14/17 at 13:30; Stop 05/14/17 at 13:37; Status DC Midazolam HCl (Versed) 1 mg 1X ONCE IV Last administered on 05/14/17 13:30; Start 05/14/17 at 13:30; Stop 05/14/17 at 13:37; Status DC Iohexol (Omnipaque 300 Mg/ml) 54 ml 1X ONCE IART Last administered on 13:30; Start 05/14/17 at 13:30; Stop 05/14/17 at 13:37; Status DC Lidocaine HCl 20 ml 1X ONCE IJ Last administered on 05/14/17 13:30; Start 05/14/17 at 13:30; Stop 05/14/17 at 13:37; Status DC Iohexol (Omnipaque 240 Mg/ml) 50 ml 1X ONCE PO Last administered on 08:00; Start 05/15/17 at 08:00; Stop 05/15/17 at 08:10; Status DC Info (Do NOT chart on this entry -- for MONITORING) 1 each PRN DAILY PRN MC SEE COMMENTS; Start 05/15/17 at 08:15; Stop 05/15/17 at 13:59; Status DC Iohexol (Omnipaque 300 Mg/ml) 75 ml 1X ONCE IV Last administered on 09:34; Start 05/15/17 at 09:30; Stop 05/15/17 at 09:31; Status DC Info (Do NOT chart on this entry -- for MONITORING) 1 each PRN DAILY PRN MC SEE COMMENTS; Start 05/15/17 at 09:30; Stop 05/17/17 at 09:29 Ceftriaxone Sodium 1 gm/ Dextrose 50 ml @ 100 mls/hr Q24H IV ; Start 05/15/17 at 11:00; Stop 05/15/17 at 11:01; Status DC Sodium Acetate 120 meq/Potassium Chloride 70 meq/ Potassium Phosphate 18 mmol/ Magnesium Sulfate 22 meq/Calcium Gluconate 5 meq/ Multivitamins 10 ml/Chromium/ Copper/Manganese/ Seleni/Zn 1 ml/ Sodium Chloride 40 meq/Total Parenteral Nutrition/Amino Acids/Dextrose/ Fat Emulsion Intravenous 1,512 ml @ 63 mls/hr TPN CONT IV Last administered on 05/15/17 21:05; Start 05/15/17 at 22:00; Stop 05/16/17 at 21:59; Status DC Sodium Acetate 120 meq/Potassium Chloride 70 meq/ Potassium Phosphate 18 mmol/ Magnesium Sulfate 22 meq/Calcium Gluconate 5 meq/ Multivitamins 10 ml/Chromium/ Copper/Manganese/ Seleni/Zn 1 ml/ Sodium Chloride 40 meq/Total Parenteral Nutrition/Amino Acids/Dextrose/ Fat Emulsion Intravenous 1,320 ml @ 55 mls/hr TPN CONT IV Last administered on 05/16/17 21:47; Start 05/16/17 at 22:00; Stop 05/17/17 at 21:59 Active Scripts Active Reported Levofloxacin 500 Mg Tablet 500 Mg PO DAILY Tramadol Hcl 50 Mg Tablet 50 Mg PO Q6H PRN Ondansetron Hcl 4 Mg Tablet 8 Mg PO BID PRN [place] 5-325 Tablet (Acetaminophen/Hydrocodone Bitart) 1 Each Tablet 1-2 Tab PO Q4HRS PRN Atorvastatin Calcium 40 Mg Tablet 1 Tab PO DAILY Metoprolol Tartrate 25 Mg Tablet 1 Tab PO BID Pantoprazole Sodium 40 Mg Tablet.dr 1 Tab PO DAILY Diazepam 5 Mg Tablet 5 Mg PO TID Venlafaxine Hcl Er (Venlafaxine Hcl) 75 Mg Cap.er.24h 75 Mg PO DAILY Synthroid (Levothyroxine Sodium) 75 Mcg Tablet 75 Mcg PO DAILYAC Vitals/I & O Vital Sign - Last 24 Hours 05/16/17 05/16/17 05/16/17 05/16/17 11:00 14:35 15:00 15:00 Temp 98.2 98.6 98.2 98.6 Pulse 62 66 Resp 19 B/P (MAP) 135/62 (86) 102/50 (67) 97/54 (68) Pulse Ox 98 98 96 O2 Delivery Nasal Cannula Nasal Cannula Nasal Cannula O2 Flow Rate 2.0 2.0 2.0 05/16/17 05/16/17 05/16/17 05/16/17 19:22 19:45 21:29 21:30 Temp 97.8 97.8 Pulse 63 63 63 Resp 19 B/P (MAP) 98/54 (69) 98/54 98/54 Pulse Ox 97 O2 Delivery Nasal Cannula Nasal Cannula O2 Flow Rate 2.0 2.0 05/16/17 05/16/17 05/16/17 05/17/17 21:47 22:47 22:55 03:05 Temp 97.9 98.0 97.9 98.0 Pulse 63 58 Resp 22 B/P (MAP) 106/60 (75) 134/61 (85) Pulse Ox 97 94 96 94 O2 Delivery Nasal Cannula Nasal Cannula Nasal Cannula Nasal Cannula O2 Flow Rate 2.0 2.0 2.0 2.0 05/17/17 05/17/17 05/17/17 07:00 08:44 08:44 Temp 97.8 97.8 Pulse 60 70 75 Resp 19 B/P (MAP) 98/57 (71) Pulse Ox 90 O2 Delivery Nasal Cannula O2 Flow Rate 2.0 Intake and Output 05/16/17 05/16/17 05/17/17 14:59 22:59 06:59 Intake Total 550 ml 1431 ml 1030 ml Output Total 250 ml 425 ml 500 ml Balance 300 ml 1006 ml 530 ml Nutrition Consultation Dietary Evaluation: Recommendations by RD: Increase Calorie Intake, PPN/TPN Comments: Continue current TPN infusion: 225 g dextrose, 60 g AA, 20 g lipid Encouraged continued improving PO intake Can dc TPN once PO intake meeting > 65% est needs Expected Outcomes/Goals: TPN infusion initiated and meeting > 75% est needs within 24 - 48 hrs - met, new goal established 05/14 05/14: Goal - TPN and PO intake to meet > 75% est needs Malnutrition Findings: Food and Nutrition Intake (Mod: <75% est energy req 7days Weight Status: Overweight NEO ASHRAF MD May 17, 2017 09:16
[2017-05-17 11:00] VITALS: BP 100/57
--- NOTE | 2017-05-17 13:20 | PDOC ---
PULMONARY PROGRESS NOTES Subjective PT FEELS BETTER LESS SOA Vitals Vital Signs Date Time Temp Pulse Resp B/P (MAP) Pulse Ox O2 Delivery O2 Flow Rate FiO2 05/17/17 11:00 97.6 58 18 100/57 (71) 95 Room Air 97.6 05/17/17 07:45 2.0 ROS: No Nausea, No Abdominal Pain, No Increase Cough General: Alert, No acute distress Lungs: Other (decrease bases) Cardiovascular: S1, S2 Abdomen: Soft Neuro Exam: Alert Extremities: Other (1=EDEMA) Skin: Warm Labs Laboratory Tests Test 05/15/17 15:23 05/16/17 10:45 05/17/17 06:30 Sodium Level 132 mmol/L (136-145) 133 mmol/L (136-145) 134 mmol/L (136-145) Potassium Level 4.0 mmol/L (3.5-5.1) 4.2 mmol/L (3.5-5.1) 4.2 mmol/L (3.5-5.1) Chloride Level 96 mmol/L (98-107) 97 mmol/L (98-107) 99 mmol/L (98-107) Carbon Dioxide Level 32 mmol/L (21-32) 30 mmol/L (21-32) 33 mmol/L (21-32) Anion Gap 4 (6-14) 6 (6-14) 2 (6-14) Blood Urea Nitrogen 20 mg/dL (7-20) 19 mg/dL (7-20) 21 mg/dL (7-20) Creatinine 0.9 mg/dL (0.6-1.0) 1.0 mg/dL (0.6-1.0) 0.9 mg/dL (0.6-1.0) Estimated GFR (Cockcroft-Gault) 61.2 54.2 61.2 Glucose Level 119 mg/dL (70-99) 102 mg/dL (70-99) 118 mg/dL (70-99) Calcium Level 8.1 mg/dL (8.5-10.1) 8.6 mg/dL (8.5-10.1) 8.3 mg/dL (8.5-10.1) Phosphorus Level 4.3 mg/dL (2.6-4.7) 4.3 mg/dL (2.6-4.7) 4.4 mg/dL (2.6-4.7) Magnesium Level 1.9 mg/dL (1.8-2.4) 2.1 mg/dL (1.8-2.4) 2.2 mg/dL (1.8-2.4) Laboratory Tests Test 05/17/17 06:30 Sodium Level 134 mmol/L (136-145) Potassium Level 4.2 mmol/L (3.5-5.1) Chloride Level 99 mmol/L (98-107) Carbon Dioxide Level 33 mmol/L (21-32) Anion Gap 2 (6-14) Blood Urea Nitrogen 21 mg/dL (7-20) Creatinine 0.9 mg/dL (0.6-1.0) Estimated GFR (Cockcroft-Gault) 61.2 Glucose Level 118 mg/dL (70-99) Calcium Level 8.3 mg/dL (8.5-10.1) Phosphorus Level 4.4 mg/dL (2.6-4.7) Magnesium Level 2.2 mg/dL (1.8-2.4) Medications Active Scripts Medications Dose Route/Sig Max Daily Dose Days Date Category Levofloxacin 500 Mg Tablet 500 Mg PO DAILY 05/05/17 Reported Tramadol Hcl 50 Mg Tablet 50 Mg PO Q6H PRN 05/05/17 Reported Ondansetron Hcl 4 Mg Tablet 8 Mg PO BID PRN 05/05/17 Reported [place] 5-325 Tablet (Acetaminophen/Hydrocodone Bitart) 1 Each Tablet 1-2 Tab PO Q4HRS PRN 10/19/16 Reported Atorvastatin Calcium 40 Mg Tablet 1 Tab PO DAILY 10/18/15 Reported Metoprolol Tartrate 25 Mg Tablet 1 Tab PO BID 10/18/15 Reported Pantoprazole Sodium 40 Mg Tablet.dr 1 Tab PO DAILY 04/26/15 Reported Diazepam 5 Mg Tablet 5 Mg PO TID 03/07/15 Reported Venlafaxine Hcl Er (Venlafaxine Hcl) 75 Mg Cap.er.24h 75 Mg PO DAILY 03/07/15 Reported Synthroid (Levothyroxine Sodium) 75 Mcg Tablet 75 Mcg PO DAILYAC 03/07/15 Reported Impression . 1. Progressive dyspnea POA, multifactorial secondary to CHF, weakness from her recent chemotherapy and toxicities/ NEW CM EF 25 %. 2. Stage 4 Colon cancer. 3. Leukopenia/ thrombocytopenia secondary to chemotherapy.much improved 4. Thrombocytopenia.improving 5. Acute renal failure, improved 6. Urinary tract infection. 7. Protein malnutrition present upon admission. 8. CODE BLUE ,V- TACH PER DR ASHRAF 9. Mild interstitial edema POA PT S/P CODE FOR V TACH, HAD SHOCKED MULTIPLE TIMES OFF BIPAP/ OFF DOBUTAMINE S/P CATH/ NORMAL CORONARIES/ EF BETTER 40% Plan . CLINICALLY IMPROVING, HOPEFULLY TRANSFER TO [facility] SOON OFF DOBUTAMINE S/P CATH 05/14. NO SIG CAD, EF IMPROVED TO 40% CT CHEST 05/15 REVIEWED. GG INFILTRATES IN UPPER LOBES, ? INFLAMMATORY AND SUSPECT RELATED TO AMIODARONE BASAL INFILTRATES/ ATELECTASIS/ HAS ALREADY BEEN TREATED WITH ROCEPHIN/DOXY. WILL HOLD ANY FURTHER ANTIBIOTICS F/U CXR NEEDED BLOOD COUNTS IMPROVING FOLLOW [facility] INPUT SUPPORTIVE CARE JEFF FISCHER MD May 17, 2017 13:20
[2017-05-17] MEDS: TPN PER PHARMACY MC PRN (13:47)
[2017-05-17 15:00] VITALS: BP 104/56
[2017-05-17 19:10] VITALS: BP 111/62
[2017-05-17] MEDS: traMADol 50 MG TABLET PO PRN (21:17)
[2017-05-17] MEDS ORDERED: DEXTROSE 70% IV SCH ×11 (22:00)
[2017-05-17] MEDS ORDERED: [UNRECOGNIZED DRUG - OTHER] IV SCH ×11 (22:00)
[2017-05-17] MEDS ORDERED: AMINO ACIDS IV SCH ×11 (22:00)
[2017-05-17] MEDS ORDERED: TOTAL PARENTERAL NUTRITION IV SCH ×11 (22:00)
[2017-05-17 22:45] VITALS: BP 104/51
[2017-05-18] VITALS (7 sets, daily range): BP systolic 87–118; BP diastolic 49–64
[2017-05-18 07:05] LABS: CALCIUM 7.8 mg/dL (8.5-10.1); CREATININE 0.9 mg/dL (0.6-1.0); GFR 61.2; POTASSIUM 3.7 mmol/L (3.5-5.1)
--- NOTE | 2017-05-18 08:23 | PDOC ---
GENERAL General: vss and afebrile. awake and alert and son in attendance. chest clear, heart regular, abdomen benign. calorie count underway. could go to snu when taking enough po to dc TPN. no further arrhymias. am labs good. continue same. Problems: VITAL SIGNS Vital Signs: Vital Signs Date Time Temp Pulse Resp B/P (MAP) Pulse Ox O2 Delivery O2 Flow Rate FiO2 05/18/17 07:00 98.6 61 16 102/58 (73) 96 Nasal Cannula 2.0 98.6 ALLERGIES Allergies: Allergies Coded Allergies Type Severity Reaction Last Updated Verified codeine Adverse Reaction Intermediate Patient states hallucinations 10/19/16 Yes MEDS Medications: Current Medications Medications (Trade) Dose Ordered Sig/Fannie Start Time Stop Time Status Last Admin Dose Admin Acyclovir (Zovirax) 400 mg [id number] 05/06/17 09:00 05/17/17 21:21 400 MG Albuterol Sulfate (Ventolin Neb Soln) 2.5 mg 1X ONCE 05/10/17 20:00 05/10/17 20:01 DC 05/10/17 19:54 2.5 MG Amiodarone HCl (Cordarone) 300 mg STK-MED ONCE 05/09/17 23:00 05/10/17 11:00 DC Amiodarone HCl 150 mg/Dextrose 103 ml @ 618 mls/hr 1X ONCE 05/09/17 14:00 05/09/17 14:09 DC 05/09/17 14:28 618 MLS/HR Amiodarone HCl 450 mg/Dextrose 259 ml @ 17.26 mls/ hr CONT PRN 05/10/17 04:00 05/11/17 05:43 17.26 MLS/HR Amiodarone HCl 900 mg/Dextrose 518 ml @ 0 mls/hr CONT PRN 05/10/17 03:45 UNV Atorvastatin Calcium (Lipitor) 40 mg DAILY 05/06/17 09:00 05/17/17 08:44 40 MG Atropine Sulfate 1 mg STK-MED ONCE 05/09/17 23:00 05/10/17 11:00 DC Calcium Gluconate (Calcium Gluconate) 1,000 mg 1X ONCE 05/09/17 14:00 05/09/17 14:01 DC 05/09/17 14:28 1,000 MG Ceftriaxone Sodium 1 gm/ Dextrose 50 ml @ 100 mls/hr Q24H 05/15/17 11:00 05/15/17 11:01 DC Ceftriaxone Sodium (Rocephin) 1 gm Q24H 05/05/17 18:00 05/13/17 08:09 DC 05/12/17 17:46 1 GM Diazepam (Valium) 5 mg TID 05/05/17 21:00 05/17/17 21:19 5 MG Dobutamine HCl/ Dextrose 250 ml @ 0 mls/hr CONT PRN 05/10/17 21:15 05/13/17 20:58 5.756 MLS/HR Doxycycline Hyclate (Vibra-Tab) 100 mg BID 05/06/17 14:00 05/12/17 07:50 DC 05/11/17 21:01 100 MG Epinephrine HCl (EPINEPHrine SYRINGE) 3 mg STK-MED ONCE 05/09/17 23:00 05/10/17 11:00 DC Fentanyl Citrate (Fentanyl 2ml Vial) 100 mcg STK-MED ONCE 05/14/17 12:56 05/14/17 12:57 DC Furosemide (Lasix) 40 mg DAILY 05/12/17 09:00 05/17/17 08:45 40 MG Heparin Sodium/ Sodium Chloride 1,000 unit 1X ONCE 05/14/17 13:30 05/14/17 13:37 DC 05/14/17 13:30 1,000 UNIT Info (Do NOT chart on this entry -- for MONITORING) 1 each PRN DAILY PRN 05/15/17 09:30 05/17/17 09:29 DC Iohexol (Omnipaque 240 Mg/ml) 50 ml 1X ONCE 05/15/17 08:00 05/15/17 08:10 DC 05/15/17 08:00 50 ML Iohexol (Omnipaque 300 Mg/ml) 75 ml 1X ONCE 05/15/17 09:30 05/15/17 09:31 DC 05/15/17 09:34 75 ML Levothyroxine Sodium (Synthroid) 75 mcg DAILYAC 05/06/17 07:30 05/17/17 08:44 75 MCG Lidocaine HCl 20 ml 1X ONCE 05/14/17 13:30 05/14/17 13:37 DC 05/14/17 13:30 20 ML Lidocaine HCl (Lidocaine HCl 2% Abboject) 100 mg STK-MED ONCE 05/09/17 23:00 05/10/17 11:00 DC Lidocaine HCl/ Dextrose 500 ml @ 0 mls/hr CONT PRN 05/10/17 04:00 05/12/17 17:20 DC 05/12/17 05:40 15 MLS/HR Lidocaine/Sodium Bicarbonate (Buffered Lidocaine 1%) 3 ml 1X ONCE 05/10/17 13:45 05/10/17 13:57 DC 05/10/17 13:45 3 ML Magnesium Sulfate/ Dextrose (Magnesium Sulfate PREMIX 1GM) 2 gm STK-MED ONCE 05/05/17 12:00 05/12/17 17:24 DC Metoprolol Tartrate (Lopressor) 25 mg BID 05/05/17 21:00 05/17/17 21:18 25 MG Midazolam HCl (Versed) 1 mg 1X ONCE 05/14/17 13:30 05/14/17 13:37 DC 05/14/17 13:30 1 MG Multi-Ingredient Mouthwash/Gargle (Magic Mouthwash) 10 ml PRN QID PRN 05/07/17 09:00 05/08/17 10:12 10 ML Nystatin 5 ml [id number] 05/07/17 13:00 05/16/17 17:00 5 ML Ondansetron HCl (Zofran Odt) 8 mg PRN Q12HRS PRN 05/05/17 18:30 05/11/17 11:52 8 MG Pantoprazole Sodium (Protonix) 40 mg DAILY 05/06/17 09:00 05/17/17 08:44 40 MG Potassium Chloride/Dextrose/ Sod Cl 1,000 ml @ 75 mls/hr [id number] 05/09/17 11:00 05/11/17 08:26 DC 05/10/17 17:58 75 MLS/HR Potassium Chloride/Sodium Chloride 1,000 ml @ 80 mls/hr [id number] 05/08/17 17:30 05/09/17 18:27 DC 05/09/17 05:49 80 MLS/HR Potassium Phosphate 13.6 mmol/Dextrose 104.5333 ml @ 52.267 m... ONCE ONCE 05/11/17 13:00 05/11/17 14:59 DC 05/11/17 13:24 52.267 MLS/HR Potassium Chloride (Klor-Con) 40 meq 1X ONCE 05/09/17 11:00 05/09/17 11:01 DC Procainamide HCl 500 mg/Dextrose 55 ml @ 110 mls/hr 1X ONCE 05/09/17 15:30 05/09/17 15:59 DC 05/09/17 15:49 110 MLS/HR Procainamide HCl 2000 mg/Dextrose 520 ml @ 0 mls/hr CONT PRN 05/09/17 15:45 UNV Sodium Acetate 100 meq/Potassium Chloride 70 meq/ Potassium Phosphate 13.6 mmol/Magnesium Sulfate 15 meq/ Calcium Gluconate 5 meq/ Multivitamins 10 ml/Chromium/ Copper/Manganese/ Seleni/Zn 1 ml/ Sodium Chloride 80 meq/Total Parenteral Nutrition/Amino Acids/Dextrose/ Fat Emuls... 1,320 ml @ 55 mls/hr TPN CONT 05/17/17 22:00 05/18/17 21:59 05/17/17 21:20 55 MLS/HR Sodium Acetate 120 meq/Potassium Chloride 70 meq/ Potassium Phosphate 18 mmol/ Magnesium Sulfate 22 meq/Calcium Gluconate 5 meq/ Multivitamins 10 ml/Chromium/ Copper/Manganese/ Seleni/Zn 1 ml/ Sodium Chloride 40 meq/Total Parenteral Nutrition/Amino Acids/Dextrose/ Fat Emulsion Intravenous 1,320 ml @ 55 mls/hr TPN CONT 05/16/17 22:00 05/17/17 21:59 DC 05/16/17 21:47 55 MLS/HR Sodium Acetate 120 meq/Potassium Chloride 70 meq/ Potassium Phosphate 25 mmol/ Magnesium Sulfate 22 meq/Calcium Gluconate 5 meq/ Multivitamins 10 ml/Chromium/ Copper/Manganese/ Seleni/Zn 1 ml/ Sodium Chloride 40 meq/Total Parenteral Nutrition/Amino Acids/Dextrose/ Fat Emulsion Intravenous 1,512 ml @ 63 mls/hr TPN CONT 05/13/17 22:00 05/14/17 21:59 DC 05/13/17 23:09 63 MLS/HR Sodium Acetate 120 meq/Potassium Chloride 70 meq/ Potassium Phosphate 25 mmol/ Magnesium Sulfate 22 meq/Calcium Gluconate 5 meq/ Multivitamins 10 ml/Chromium/ Copper/Manganese/ Seleni/Zn 1 ml/ Total Parenteral Nutrition/Amino Acids/Dextrose/ Fat Emulsion Intravenous 1,512 ml @ 63 mls/hr TPN CONT 05/12/17 22:00 05/13/17 21:59 DC 05/12/17 22:50 63 MLS/HR Sodium Acetate 120 meq/Potassium Chloride 70 meq/ Potassium Phosphate 27.2 mmol/Magnesium Sulfate 22 meq/ Calcium Gluconate 5 meq/ Multivitamins 10 ml/Chromium/ Copper/Manganese/ Seleni/Zn 1 ml/ Total Parenteral Nutrition/Amino Acids/Dextrose/ Fat Emulsion Intravenous 1,512 ml @ 63 mls/hr TPN CONT 05/11/17 22:00 05/12/17 21:59 Cancel Sodium Acetate 90 meq/Potassium Chloride 70 meq/ Potassium Phosphate 20.4 mmol/Magnesium Sulfate 18 meq/ Calcium Gluconate 10 meq/ Multivitamins 10 ml/Chromium/ Copper/Manganese/ Seleni/Zn 1 ml/ Total Parenteral Nutrition/Amino Acids/Dextrose/ Fat Emulsion Intravenous 1,512 ml @ 63 mls/hr TPN CONT 05/10/17 22:00 05/11/17 21:59 DC 05/10/17 22:00 63 MLS/HR Sodium Bicarbonate 100 meq 1X ONCE 05/08/17 15:30 05/08/17 15:31 DC 05/08/17 16:52 100 MEQ Sodium Chloride 250 ml @ 250 mls/hr 1X ONCE 05/10/17 13:45 05/10/17 14:44 DC Sodium Chloride 90 meq/Potassium Acetate 70 meq/ Potassium Phosphate 18 mmol/ Magnesium Sulfate 12 meq/Calcium Gluconate 10 meq/ Multivitamins 10 ml/Chromium/ Copper/Manganese/ Seleni/Zn 1 ml/ Total Parenteral Nutrition/Amino Acids/Dextrose/ Fat Emulsion Intravenous 1,512 ml @ 63 mls/hr TPN CONT 05/09/17 22:00 05/10/17 21:59 DC 05/09/17 21:39 63 MLS/HR Sodium Chloride 90 meq/Potassium Chloride 50 meq/ Potassium Phosphate 13.6 mmol/Magnesium Sulfate 10 meq/ Calcium Gluconate 10 meq/ Multivitamins 10 ml/Chromium/ Copper/Manganese/ Seleni/Zn 1 ml/ Total Parenteral Nutrition/Amino Acids/Dextrose/ Fat Emulsion Intravenous 1,387.0013 ml @ 3.625 mls/hr TPN CONT 05/09/17 22:00 UNV Sodium Phosphate 20 mmol/Dextrose 256.6667 ml @ 64.167 m... 1X ONCE 05/09/17 17:45 05/09/17 21:44 DC 05/09/17 18:10 64.167 MLS/HR Sodium Phosphate 30 mmol/Dextrose 260 ml @ 65 mls/hr 1X ONCE 05/09/17 17:45 05/09/17 21:44 Cancel Tramadol HCl (Ultram) 50 mg PRN Q6HRS PRN 05/05/17 18:15 05/17/17 21:17 50 MG Vancomycin HCl 1 each 1X ONCE 05/07/17 19:00 05/07/17 19:01 Cancel Vancomycin HCl (Vanco Per Pharmacy) 1 each PRN DAILY PRN 05/05/17 18:00 05/06/17 13:10 DC 05/06/17 12:53 1 EACH Vancomycin HCl 1.75 gm/Dextrose 500 ml @ 250 mls/hr 1X ONCE 05/05/17 18:30 05/05/17 20:29 DC 05/05/17 19:21 250 MLS/HR Vancomycin HCl 1 gm/Dextrose 250 ml @ 250 mls/hr Q24H 05/06/17 19:30 05/06/17 19:30 DC Venlafaxine HCl (Effexor Xr) 75 mg DAILY 05/06/17 09:00 05/17/17 08:44 75 MG LAB Lab: Laboratory Tests Test 05/18/17 06:10 Sodium Level 134 mmol/L (136-145) Potassium Level 3.7 mmol/L (3.5-5.1) Chloride Level 101 mmol/L (98-107) Carbon Dioxide Level 30 mmol/L (21-32) Anion Gap 3 (6-14) Blood Urea Nitrogen 24 mg/dL (7-20) Creatinine 0.9 mg/dL (0.6-1.0) Estimated GFR (Cockcroft-Gault) 61.2 Glucose Level 109 mg/dL (70-99) Calcium Level 7.8 mg/dL (8.5-10.1) Nutrition Consultation Dietary Evaluation: Recommendations by RD: Increase Calorie Intake, PPN/TPN Comments: Continue current TPN infusion: 225 g dextrose, 60 g AA, 20 g lipid Encouraged continued improving PO intake Can dc TPN once PO intake meeting > 65% est needs Expected Outcomes/Goals: TPN infusion initiated and meeting > 75% est needs within 24 - 48 hrs - met, new goal established 05/14 05/14: Goal - TPN and PO intake to meet > 75% est needs Malnutrition Findings: Food and Nutrition Intake (Mod: <75% est energy req 7days Weight Status: Overweight [email or web address] MD May 18, 2017 08:23
[2017-05-18] MEDS: NYSTATIN 100,000 UNITS/ML 5 ML ORAL.SUSP. SWSW SCH ×4 (09:00→21:00)
[2017-05-18] MEDS: VENLAFAXINE XR 37.5 MG CAP.ER.24H. PO SCH (09:02)
[2017-05-18] MEDS: traMADol 50 MG TABLET PO PRN (09:02)
[2017-05-18] MEDS: METOPROLOL TART IMMED RELEASE 25 MG TABLET. PO SCH ×2 (09:02→22:21)
[2017-05-18] MEDS: diazePAM 5 MG TABLET PO SCH ×3 (09:03→22:21)
[2017-05-18] MEDS: LEVOTHYROXINE 75 MCG TABLET PO SCH (09:03)
[2017-05-18] MEDS: PANTOPRAZOLE 40 MG TABLET.DR. PO SCH (09:03)
[2017-05-18] MEDS: ATORVASTATIN CALCIUM 40 MG TABLET. PO SCH (09:03)
[2017-05-18] MEDS: ACYCLOVIR 200 MG CAPSULE. PO SCH ×3 (09:03→22:21)
[2017-05-18] MEDS: AMIODARONE HCL 200 MG TABLET. PO SCH ×2 (09:05→22:22)
[2017-05-18] MEDS: FUROSEMIDE 40 MG/4 ML VIAL. IVP SCH (09:05)
--- NOTE | 2017-05-18 10:29 | PDOC ---
PROGRESS NOTES Subjective Subjective Patient doing well today. On bedside commode during visit. Vital signs stable and patient afebrile. Patient still reports rib discomfort secondary to rib fractures. Also c/o of new and "different" L-sided chest discomfort that was on and off. Slightly short of breath today, but denies any lightheadedness or other complaints. Continues to be in sinus rhythm. She agrees with the plan to be transferred to a half-way facility once off of TPN. No additional concerns at this time. Objective Objective Vital Signs Date Time Temp Pulse Resp B/P (MAP) Pulse Ox O2 Delivery O2 Flow Rate FiO2 05/18/17 09:05 62 102/58 05/18/17 09:02 Nasal Cannula 2.0 05/18/17 07:00 98.6 16 96 98.6 Intake and Output 05/18/17 07:00 Intake Total 1857 ml Output Total 1500 ml Balance 357 ml Intake Oral 1375 ml IV Total 482 ml Output Urine Total 1250 ml Stool Total 250 ml Physical Exam COMMENT Alert, Awake, Oriented No Acute Distress No change in cardiac exam TTP on middle/lower lateral ribs b/l Lungs CTAB No LE edema b/l Plan Plan of Care CHF- Patient with hx code on floor during this hospitalization - was shocked 6 times and has had some brief torsades since being in ICU. BP and vital signs currently stable. No further cardiac arrhythmias. Patient continues to improve slowly. Continue Amiodarone at present dose. Continue this dose for 5 more days and then decreased to 200mg/day. Agree with plan to transfer patient to SN[facility] when patient transitioned from TPN to PO. Comment Review of Relevant I have reviewed the following items armida (where applicable) has been applied. Labs Laboratory Tests Test 05/16/17 10:45 05/17/17 06:30 05/18/17 06:10 Sodium Level 133 mmol/L (136-145) 134 mmol/L (136-145) 134 mmol/L (136-145) Potassium Level 4.2 mmol/L (3.5-5.1) 4.2 mmol/L (3.5-5.1) 3.7 mmol/L (3.5-5.1) Chloride Level 97 mmol/L (98-107) 99 mmol/L (98-107) 101 mmol/L (98-107) Carbon Dioxide Level 30 mmol/L (21-32) 33 mmol/L (21-32) 30 mmol/L (21-32) Anion Gap 6 (6-14) 2 (6-14) 3 (6-14) Blood Urea Nitrogen 19 mg/dL (7-20) 21 mg/dL (7-20) 24 mg/dL (7-20) Creatinine 1.0 mg/dL (0.6-1.0) 0.9 mg/dL (0.6-1.0) 0.9 mg/dL (0.6-1.0) Estimated GFR (Cockcroft-Gault) 54.2 61.2 61.2 Glucose Level 102 mg/dL (70-99) 118 mg/dL (70-99) 109 mg/dL (70-99) Calcium Level 8.6 mg/dL (8.5-10.1) 8.3 mg/dL (8.5-10.1) 7.8 mg/dL (8.5-10.1) Phosphorus Level 4.3 mg/dL (2.6-4.7) 4.4 mg/dL (2.6-4.7) Magnesium Level 2.1 mg/dL (1.8-2.4) 2.2 mg/dL (1.8-2.4) Laboratory Tests Test 05/18/17 06:10 Sodium Level 134 mmol/L (136-145) Potassium Level 3.7 mmol/L (3.5-5.1) Chloride Level 101 mmol/L (98-107) Carbon Dioxide Level 30 mmol/L (21-32) Anion Gap 3 (6-14) Blood Urea Nitrogen 24 mg/dL (7-20) Creatinine 0.9 mg/dL (0.6-1.0) Estimated GFR (Cockcroft-Gault) 61.2 Glucose Level 109 mg/dL (70-99) Calcium Level 7.8 mg/dL (8.5-10.1) Microbiology 05/06/17 Urine Culture - Final, Complete 05/06/17 Urine Culture Result 1 (MARINE) - Final, Complete Medications Current Medications Ceftriaxone Sodium 1 gm/ Dextrose 50 ml @ 100 mls/hr Q24H IV ; Start 05/05/17 at 18:00; Status UNV Vancomycin HCl (Vanco Per Pharmacy) 1 each PRN DAILY PRN MC SEE COMMENTS Last administered on 05/06/17 12:53; Start 05/05/17 at 18:00; Stop 05/06/17 at 13:10 ; Status DC Ceftriaxone Sodium (Rocephin) 1 gm Q24H IVP Last administered on 05/12/17 17: 46; Start 05/05/17 at 18:00; Stop 05/13/17 at 08:09; Status DC Sodium Chloride 1,000 ml @ 75 mls/hr [id number] IV Last administered on 04:20; Start 05/05/17 at 18:15; Stop 05/08/17 at 13:44; Status DC Atorvastatin Calcium (Lipitor) 40 mg DAILY PO Last administered on 05/18/17 09:03; Start 05/06/17 at 09:00 Diazepam (Valium) 5 mg TID PO Last administered on 05/18/17 09:03; Start 05/05/17 at 21:00 Levothyroxine Sodium (Synthroid) 75 mcg DAILYAC PO Last administered on 09:03; Start 05/06/17 at 07:30 Metoprolol Tartrate (Lopressor) 25 mg BID PO Last administered on 05/18/17 09 :02; Start 05/05/17 at 21:00 Pantoprazole Sodium (Protonix) 40 mg DAILY PO Last administered on 05/18/17 09:03; Start 05/06/17 at 09:00 Tramadol HCl (Ultram) 50 mg PRN Q6HRS PRN PO PAIN Last administered on 09:02; Start 05/05/17 at 18:15 Ondansetron HCl (Zofran Odt) 8 mg PRN Q12HRS PRN PO NAUSEA/VOMITING Last administered on 05/11/17 11:52; Start 05/05/17 at 18:30 Venlafaxine HCl (Effexor Xr) 75 mg DAILY PO Last administered on 05/18/17 09: 02; Start 05/06/17 at 09:00 Vancomycin HCl 1.75 gm/Dextrose 500 ml @ 250 mls/hr 1X ONCE IV Last administered on 05/05/17 19:21; Start 05/05/17 at 18:30; Stop 05/05/17 at 20:29 ; Status DC Vancomycin HCl 1 gm/Dextrose 250 ml @ 250 mls/hr Q24H IV ; Start 05/06/17 at 19 :30; Stop 05/06/17 at 19:30; Status DC Vancomycin HCl 1 each 1X ONCE MC ; Start 05/07/17 at 19:00; Stop 05/07/17 at 19:01; Status Cancel Acyclovir (Zovirax) 400 mg [id number] PO Last administered on 05/18/17 09:03; Start 05/06/17 at 09:00 Doxycycline Hyclate (Vibra-Tab) 100 mg BID PO Last administered on 05/11/17 21:01; Start 05/06/17 at 14:00; Stop 05/12/17 at 07:50; Status DC Multi-Ingredient Mouthwash/Gargle (Magic Mouthwash) 10 ml PRN QID PRN PO MOUTH PAIN Last administered on 05/08/17 10:12; Start 05/07/17 at 09:00 Nystatin 5 ml [id number] Last administered on 05/16/17 17:00; Start at 13:00 Potassium Chloride/Dextrose/ Sod Cl 1,000 ml @ 75 mls/hr [id number] IV ; Start at 14:00; Stop 05/08/17 at 16:37; Status DC Potassium Chloride (Klor-Con) 40 meq 1X ONCE PO Last administered on 14:12; Start 05/08/17 at 14:00; Stop 05/08/17 at 14:01; Status DC Amiodarone HCl 900 mg/Dextrose 518 ml @ 34.53 mls/ hr CONT PRN IV SEE I/O RECORD Last administered on 05/09/17 14:28; Start 05/08/17 at 14:45; Stop at 14:29; Status DC Amiodarone HCl 900 mg/Dextrose 518 ml @ 0 mls/hr CONT PRN IV SEE I/O RECORD; Start 05/08/17 at 14:45; Status UNV Sodium Chloride 500 ml @ 500 mls/hr 1X ONCE IV Last administered on 15:30; Start 05/08/17 at 15:30; Stop 05/08/17 at 16:29; Status DC Sodium Bicarbonate 100 meq 1X ONCE IV Last administered on 05/08/17 16:52; Start 05/08/17 at 15:30; Stop 05/08/17 at 15:31; Status DC Magnesium Sulfate/ Dextrose 100 ml @ 100 mls/hr 1X ONCE IV Last administered on 05/08/17 16:00; Start 05/08/17 at 16:00; Stop 05/08/17 at 16:59; Status DC Magnesium Sulfate/ Dextrose 100 ml @ 100 mls/hr 1X ONCE IV Last administered on 05/08/17 16:00; Start 05/08/17 at 16:00; Stop 05/08/17 at 16:59; Status DC Potassium Chloride (Klor-Con) 40 meq [id number] PO ; Start 05/09/17 at 08:00; Stop 05/09/17 at 08:17; Status DC Potassium Chloride (Klor-Con) 40 meq 1X ONCE PO Last administered on 16:53; Start 05/08/17 at 17:00; Stop 05/08/17 at 17:01; Status DC Potassium Chloride/Sodium Chloride 1,000 ml @ 80 mls/hr [id number] IV Last administered on 05/09/17 05:49; Start 05/08/17 at 17:30; Stop 05/09/17 at 18 :27; Status DC Amiodarone HCl 150 mg/Dextrose 103 ml @ 618 mls/hr 1X ONCE IV Last administered on 05/09/17 07:22; Start 05/09/17 at 07:00; Stop 05/09/17 at 07 :09; Status DC Magnesium Sulfate/ Dextrose 50 ml @ 25 mls/hr 1X ONCE IV Last administered on 05/09/17 07:11; Start 05/09/17 at 07:00; Stop 05/09/17 at 08:59; Status DC Potassium Chloride 50 ml @ 25 mls/hr PRN Q2HRS PRN IV K-3.1 TO 3.5 Last administered on 05/09/17 11:44; Start 05/09/17 at 06:45; Stop 05/09/17 at 11 :44; Status DC Potassium Chloride 50 ml @ 25 mls/hr PRN Q2HRS PRN IV K 2.6 TO 3; Start at 06:45 Potassium Chloride 50 ml @ 25 mls/hr PRN Q2HRS PRN IV FOR K<2.6; Start at 08:00 Magnesium Sulfate/ Dextrose 100 ml @ 50 mls/hr PRN DAILY PRN IV MAG<1.8 Last administered on 05/11/17 09:59; Start 05/09/17 at 09:00 Potassium Chloride 50 ml @ 50 mls/hr Q1H IV ; Start 05/09/17 at 08:15; Stop at 10:14; Status Cancel Potassium Chloride 50 ml @ 50 mls/hr DAILY IV Last administered on 05/11/17 08:51; Start 05/10/17 at 09:00; Stop 05/11/17 at 09:59; Status DC Potassium Chloride 50 ml @ 50 mls/hr Q1H IV Last administered on 05/09/17 10: 00; Start 05/09/17 at 09:00; Stop 05/09/17 at 10:59; Status DC Potassium Chloride (Klor-Con) 40 meq 1X ONCE PO ; Start 05/09/17 at 11:00; Stop 05/09/17 at 11:01; Status DC Potassium Chloride/Dextrose/ Sod Cl 1,000 ml @ 75 mls/hr [id number] IV Last administered on 05/10/17 17:58; Start 05/09/17 at 11:00; Stop 05/11/17 at 08 :26; Status DC Calcium Gluconate (Calcium Gluconate) 1,000 mg 1X ONCE IVP Last administered on 05/09/17 14:28; Start 05/09/17 at 14:00; Stop 05/09/17 at 14:01; Status DC Info 1 each PRN DAILY PRN MC SEE COMMENTS Last administered on 05/17/17 13:47 ; Start 05/09/17 at 13:45 Amiodarone HCl 150 mg/Dextrose 103 ml @ 618 mls/hr 1X ONCE IV Last administered on 05/09/17 14:28; Start 05/09/17 at 14:00; Stop 05/09/17 at 14 :09; Status DC Amiodarone HCl (Cordarone) 400 mg BID PO Last administered on 05/18/17 09:05 ; Start 05/09/17 at 21:00 Sodium Chloride 90 meq/Potassium Chloride 50 meq/ Potassium Phosphate 13.6 mmol/ Magnesium Sulfate 10 meq/ Calcium Gluconate 10 meq/ Multivitamins 10 ml/Chromium / Copper/Manganese/ Seleni/Zn 1 ml/ Total Parenteral Nutrition/Amino Acids/ Dextrose/ Fat Emulsion Intravenous 1,387.0013 ml @ 3.625 mls/hr TPN CONT IV ; Start 05/09/17 at 22:00; Status UNV Sodium Chloride 90 meq/Potassium Acetate 70 meq/ Potassium Phosphate 18 mmol/ Magnesium Sulfate 12 meq/Calcium Gluconate 10 meq/ Multivitamins 10 ml/Chromium / Copper/Manganese/ Seleni/Zn 1 ml/ Total Parenteral Nutrition/Amino Acids/ Dextrose/ Fat Emulsion Intravenous 1,512 ml @ 63 mls/hr TPN CONT IV Last administered on 05/09/17 21:39; Start 05/09/17 at 22:00; Stop 05/10/17 at 21 :59; Status DC Magnesium Sulfate/ Dextrose 50 ml @ 25 mls/hr 1X ONCE IV ; Start 05/09/17 at 15:15; Stop 05/09/17 at 17:14; Status DC Procainamide HCl 2000 mg/Dextrose 520 ml @ 31.2 mls/hr CONT PRN IV SEE I/O RECORD Last administered on 05/11/17 21:55; Start 05/09/17 at 16:00; Stop at 11:28; Status DC Procainamide HCl 500 mg/Dextrose 55 ml @ 110 mls/hr 1X ONCE IV Last administered on 05/09/17 15:49; Start 05/09/17 at 15:30; Stop 05/09/17 at 15 :59; Status DC Procainamide HCl 2000 mg/Dextrose 520 ml @ 0 mls/hr CONT PRN IV SEE I/O RECORD ; Start 05/09/17 at 15:45; Status UNV Sodium Phosphate 30 mmol/Dextrose 260 ml @ 65 mls/hr 1X ONCE IV ; Start 05/09 at 17:45; Stop 05/09/17 at 21:44; Status Cancel Sodium Phosphate 20 mmol/Dextrose 256.6667 ml @ 64.167 m... 1X ONCE IV Last administered on 05/09/17 18:10; Start 05/09/17 at 17:45; Stop 05/09/17 at 21 :44; Status DC Magnesium Sulfate/ Dextrose 100 ml @ 100 mls/hr 1X ONCE IV Last administered on 05/10/17 01:48; Start 05/10/17 at 02:00; Stop 05/10/17 at 02:59; Status DC Midazolam HCl (Versed) 1 mg PRN Q2HR PRN IV SEDATION; Start 05/10/17 at 02:30 ; Stop 05/16/17 at 11:50; Status DC Midazolam HCl (Versed) 2 mg PRN Q2HR PRN IV SEDATION; Start 05/10/17 at 02:30 ; Stop 05/16/17 at 11:50; Status DC Amiodarone HCl 900 mg/Dextrose 518 ml @ 0 mls/hr CONT PRN IV SEE I/O RECORD; Start 05/10/17 at 03:45; Status UNV Amiodarone HCl 450 mg/Dextrose 259 ml @ 17.26 mls/ hr CONT PRN IV SEE I/O RECORD Last administered on 05/11/17 05:43; Start 05/10/17 at 04:00 Lidocaine HCl/ Dextrose 500 ml @ 0 mls/hr CONT PRN IV SEE I/O RECORD Last administered on 05/12/17 05:40; Start 05/10/17 at 04:00; Stop 05/12/17 at 17 :20; Status DC Lidocaine HCl (Lidocaine HCl 2% Abboject) 100 mg 1X ONCE IV Last administered on 05/10/17 04:13; Start 05/10/17 at 04:30; Stop 05/10/17 at 04:31; Status DC Amiodarone HCl (Cordarone) 300 mg STK-MED ONCE .ROUTE ; Start 05/09/17 at 23:00 ; Stop 05/10/17 at 11:00; Status DC Atropine Sulfate 1 mg STK-MED ONCE .ROUTE ; Start 05/09/17 at 23:00; Stop at 11:00; Status DC Epinephrine HCl (EPINEPHrine SYRINGE) 3 mg STK-MED ONCE .ROUTE ; Start at 23:00; Stop 05/10/17 at 11:00; Status DC Lidocaine HCl (Lidocaine HCl 2% Abboject) 100 mg STK-MED ONCE .ROUTE ; Start at 23:00; Stop 05/10/17 at 11:00; Status DC Magnesium Sulfate/ Dextrose (Magnesium Sulfate PREMIX 1GM) 2 gm STK-MED ONCE IV ; Start 05/09/17 at 23:00; Stop 05/10/17 at 11:00; Status DC Potassium Phosphate 13.6 mmol/Dextrose 104.5333 ml @ 52.267 m... ONCE ONCE IV Last administered on 05/10/17 15:54; Start 05/10/17 at 14:00; Stop at 15:59; Status DC Sodium Acetate 90 meq/Potassium Chloride 70 meq/ Potassium Phosphate 20.4 mmol/ Magnesium Sulfate 18 meq/ Calcium Gluconate 10 meq/ Multivitamins 10 ml/Chromium / Copper/Manganese/ Seleni/Zn 1 ml/ Total Parenteral Nutrition/Amino Acids/ Dextrose/ Fat Emulsion Intravenous 1,512 ml @ 63 mls/hr TPN CONT IV Last administered on 05/10/17 22:00; Start 05/10/17 at 22:00; Stop 05/11/17 at 21 :59; Status DC Lidocaine/Sodium Bicarbonate (Buffered Lidocaine 1%) 20 ml STK-MED ONCE IJ ; Start 05/10/17 at 13:45; Stop 05/10/17 at 13:46; Status DC Lidocaine/Sodium Bicarbonate (Buffered Lidocaine 1%) 3 ml 1X ONCE IJ Last administered on 05/10/17 13:45; Start 05/10/17 at 13:45; Stop 05/10/17 at 13 :57; Status DC Sodium Chloride 250 ml @ 250 mls/hr 1X ONCE IV ; Start 05/10/17 at 13:45; Stop 05/10/17 at 14:44; Status DC Albuterol Sulfate (Ventolin Neb Soln) 2.5 mg 1X ONCE NEB Last administered on 05/10/17 19:54; Start 05/10/17 at 20:00; Stop 05/10/17 at 20:01; Status DC Furosemide (Lasix) 40 mg 1X ONCE IVP Last administered on 05/10/17 21:22; Start 05/10/17 at 21:30; Stop 05/10/17 at 21:31; Status DC Dobutamine HCl/ Dextrose 250 ml @ 0 mls/hr CONT PRN IV SEE I/O RECORD Last administered on 05/13/17 20:58; Start 05/10/17 at 21:15 Sodium Acetate 120 meq/Potassium Chloride 70 meq/ Potassium Phosphate 27.2 mmol/ Magnesium Sulfate 22 meq/ Calcium Gluconate 5 meq/ Multivitamins 10 ml/Chromium / Copper/Manganese/ Seleni/Zn 1 ml/ Total Parenteral Nutrition/Amino Acids/ Dextrose/ Fat Emulsion Intravenous 1,512 ml @ 63 mls/hr TPN CONT IV ; Start 05/11/17 at 22:00; Stop 05/12/17 at 21:59; Status Cancel Potassium Phosphate 13.6 mmol/Dextrose 104.5333 ml @ 52.267 m... ONCE ONCE IV Last administered on 05/11/17 13:24; Start 05/11/17 at 13:00; Stop at 14:59; Status DC Sodium Acetate 120 meq/Potassium Chloride 70 meq/ Potassium Phosphate 25 mmol/ Magnesium Sulfate 22 meq/Calcium Gluconate 5 meq/ Multivitamins 10 ml/Chromium/ Copper/Manganese/ Seleni/Zn 1 ml/ Total Parenteral Nutrition/Amino Acids/ Dextrose/ Fat Emulsion Intravenous 1,512 ml @ 63 mls/hr TPN CONT IV Last administered on 05/11/17 21:56; Start 05/11/17 at 22:00; Stop 05/12/17 at 21 :59; Status DC Furosemide (Lasix) 40 mg DAILY IVP Last administered on 05/18/17 09:05; Start 05/12/17 at 09:00 Sodium Acetate 120 meq/Potassium Chloride 70 meq/ Potassium Phosphate 25 mmol/ Magnesium Sulfate 22 meq/Calcium Gluconate 5 meq/ Multivitamins 10 ml/Chromium/ Copper/Manganese/ Seleni/Zn 1 ml/ Total Parenteral Nutrition/Amino Acids/ Dextrose/ Fat Emulsion Intravenous 1,512 ml @ 63 mls/hr TPN CONT IV Last administered on 05/12/17 22:50; Start 05/12/17 at 22:00; Stop 05/13/17 at 21 :59; Status DC Magnesium Sulfate/ Dextrose (Magnesium Sulfate PREMIX 1GM) 2 gm STK-MED ONCE IV ; Start 05/05/17 at 12:00; Stop 05/12/17 at 17:24; Status DC Sodium Acetate 120 meq/Potassium Chloride 70 meq/ Potassium Phosphate 25 mmol/ Magnesium Sulfate 22 meq/Calcium Gluconate 5 meq/ Multivitamins 10 ml/Chromium/ Copper/Manganese/ Seleni/Zn 1 ml/ Sodium Chloride 40 meq/Total Parenteral Nutrition/Amino Acids/Dextrose/ Fat Emulsion Intravenous 1,512 ml @ 63 mls/hr TPN CONT IV Last administered on 05/13/17 23:09; Start 05/13/17 at 22:00; Stop 05/14/17 at 21:59; Status DC Iohexol (Omnipaque 240 Mg/ml) 30 ml 1X ONCE PO ; Start 05/14/17 at 09:15; Stop 05/14/17 at 09:16; Status DC Iohexol (Omnipaque 300 Mg/ml) 75 ml 1X ONCE IV ; Start 05/14/17 at 09:15; Stop 05/14/17 at 09:16; Status DC Info (Do NOT chart on this entry -- for MONITORING) 1 each PRN DAILY PRN MC SEE COMMENTS; Start 05/14/17 at 09:15; Stop 05/15/17 at 13:59; Status DC Heparin Sodium/ Sodium Chloride 500 ml @ As Directed STK-MED ONCE .ROUTE ; Start 05/14/17 at 12:16; Stop 05/14/17 at 12:17; Status DC Lidocaine HCl 20 ml STK-MED ONCE .ROUTE ; Start 05/14/17 at 12:17; Stop at 12:18; Status DC Iohexol (Omnipaque 300 Mg/ml) 100 ml STK-MED ONCE .ROUTE ; Start 05/14/17 at 12 :17; Stop 05/14/17 at 12:18; Status DC Sodium Acetate 120 meq/Potassium Chloride 70 meq/ Potassium Phosphate 18 mmol/ Magnesium Sulfate 22 meq/Calcium Gluconate 5 meq/ Multivitamins 10 ml/Chromium/ Copper/Manganese/ Seleni/Zn 1 ml/ Sodium Chloride 40 meq/Total Parenteral Nutrition/Amino Acids/Dextrose/ Fat Emulsion Intravenous 1,512 ml @ 63 mls/hr TPN CONT IV Last administered on 05/14/17t 20:42; Start 05/14/17 at 22:00; Stop 05/15/17 at 21:59; Status DC Fentanyl Citrate (Fentanyl 2ml Vial) 100 mcg STK-MED ONCE .ROUTE ; Start at 12:56; Stop 05/14/17 at 12:57; Status DC Midazolam HCl (Versed) 2 mg STK-MED ONCE .ROUTE ; Start 05/14/17 at 12:56; Stop 05/14/17 at 12:57; Status DC Heparin Sodium/ Sodium Chloride 1,000 unit 1X ONCE IART Last administered on 05/14/17 13:30; Start 05/14/17 at 13:30; Stop 05/14/17 at 13:37; Status DC Midazolam HCl (Versed) 1 mg 1X ONCE IV Last administered on 05/14/17 13:30; Start 05/14/17 at 13:30; Stop 05/14/17 at 13:37; Status DC Iohexol (Omnipaque 300 Mg/ml) 54 ml 1X ONCE IART Last administered on 13:30; Start 05/14/17 at 13:30; Stop 05/14/17 at 13:37; Status DC Lidocaine HCl 20 ml 1X ONCE IJ Last administered on 05/14/17 13:30; Start 05/14/17 at 13:30; Stop 05/14/17 at 13:37; Status DC Iohexol (Omnipaque 240 Mg/ml) 50 ml 1X ONCE PO Last administered on 08:00; Start 05/15/17 at 08:00; Stop 05/15/17 at 08:10; Status DC Info (Do NOT chart on this entry -- for MONITORING) 1 each PRN DAILY PRN MC SEE COMMENTS; Start 05/15/17 at 08:15; Stop 05/15/17 at 13:59; Status DC Iohexol (Omnipaque 300 Mg/ml) 75 ml 1X ONCE IV Last administered on 09:34; Start 05/15/17 at 09:30; Stop 05/15/17 at 09:31; Status DC Info (Do NOT chart on this entry -- for MONITORING) 1 each PRN DAILY PRN MC SEE COMMENTS; Start 05/15/17 at 09:30; Stop 05/17/17 at 09:29; Status DC Ceftriaxone Sodium 1 gm/ Dextrose 50 ml @ 100 mls/hr Q24H IV ; Start 05/15/17 at 11:00; Stop 05/15/17 at 11:01; Status DC Sodium Acetate 120 meq/Potassium Chloride 70 meq/ Potassium Phosphate 18 mmol/ Magnesium Sulfate 22 meq/Calcium Gluconate 5 meq/ Multivitamins 10 ml/Chromium/ Copper/Manganese/ Seleni/Zn 1 ml/ Sodium Chloride 40 meq/Total Parenteral Nutrition/Amino Acids/Dextrose/ Fat Emulsion Intravenous 1,512 ml @ 63 mls/hr TPN CONT IV Last administered on 05/15/17 21:05; Start 05/15/17 at 22:00; Stop 05/16/17 at 21:59; Status DC Sodium Acetate 120 meq/Potassium Chloride 70 meq/ Potassium Phosphate 18 mmol/ Magnesium Sulfate 22 meq/Calcium Gluconate 5 meq/ Multivitamins 10 ml/Chromium/ Copper/Manganese/ Seleni/Zn 1 ml/ Sodium Chloride 40 meq/Total Parenteral Nutrition/Amino Acids/Dextrose/ Fat Emulsion Intravenous 1,320 ml @ 55 mls/hr TPN CONT IV Last administered on 05/16/17 21:47; Start 05/16/17 at 22:00; Stop 05/17/17 at 21:59; Status DC Sodium Acetate 100 meq/Potassium Chloride 70 meq/ Potassium Phosphate 13.6 mmol/ Magnesium Sulfate 15 meq/ Calcium Gluconate 5 meq/ Multivitamins 10 ml/Chromium / Copper/Manganese/ Seleni/Zn 1 ml/ Sodium Chloride 80 meq/Total Parenteral Nutrition/Amino Acids/Dextrose/ Fat Emuls... 1,320 ml @ 55 mls/hr TPN CONT IV Last administered on 05/17/17 21:20; Start 05/17/17 at 22:00; Stop at 21:59 Active Scripts Active Reported Levofloxacin 500 Mg Tablet 500 Mg PO DAILY Tramadol Hcl 50 Mg Tablet 50 Mg PO Q6H PRN Ondansetron Hcl 4 Mg Tablet 8 Mg PO BID PRN [place] 5-325 Tablet (Acetaminophen/Hydrocodone Bitart) 1 Each Tablet 1-2 Tab PO Q4HRS PRN Atorvastatin Calcium 40 Mg Tablet 1 Tab PO DAILY Metoprolol Tartrate 25 Mg Tablet 1 Tab PO BID Pantoprazole Sodium 40 Mg Tablet.dr 1 Tab PO DAILY Diazepam 5 Mg Tablet 5 Mg PO TID Venlafaxine Hcl Er (Venlafaxine Hcl) 75 Mg Cap.er.24h 75 Mg PO DAILY Synthroid (Levothyroxine Sodium) 75 Mcg Tablet 75 Mcg PO DAILYAC Vitals/I & O Vital Sign - Last 24 Hours 05/17/17 05/17/17 05/17/17 11/20/17 11:00 15:00 19:10 20:00 Temp 97.6 97.2 97.2 97.6 97.2 97.2 Pulse 58 58 61 Resp 18 18 18 B/P (MAP) 100/57 (71) 104/56 (72) 111/62 (78) Pulse Ox 95 92 97 O2 Delivery Room Air Nasal Cannula Nasal Cannula Nasal Cannula O2 Flow Rate 2.0 2.0 2.0 05/17/17 05/17/17 05/17/17 05/17/17 21:17 21:18 21:18 22:17 Pulse 63 63 Resp 20 20 B/P (MAP) 103/54 103/54 05/17/17 05/18/17 05/18/17 05/18/17 22:45 02:45 07:00 08:10 Temp 97.7 97.4 98.6 97.7 97.4 98.6 Pulse 64 65 61 Resp 18 20 16 B/P (MAP) 104/51 (68) 118/64 (82) 102/58 (73) Pulse Ox 96 96 96 O2 Delivery Nasal Cannula Nasal Cannula Nasal Cannula Nasal Cannula O2 Flow Rate 2.0 2.0 2.0 2.0 05/18/17 05/18/17 05/18/17 09:02 09:02 09:05 Pulse 62 62 B/P (MAP) 102/58 102/58 O2 Delivery Nasal Cannula O2 Flow Rate 2.0 Intake and Output 05/17/17 05/17/17 05/18/17 15:00 23:00 07:00 Intake Total 200 ml 655 ml 1002 ml Output Total 1050 ml 450 ml Balance -850 ml 655 ml 552 ml Nutrition Consultation Dietary Evaluation: Recommendations by RD: Increase Calorie Intake, PPN/TPN Comments: Continue current TPN infusion: 225 g dextrose, 60 g AA, 20 g lipid Encouraged continued improving PO intake Can dc TPN once PO intake meeting > 65% est needs Expected Outcomes/Goals: TPN infusion initiated and meeting > 75% est needs within 24 - 48 hrs - met, new goal established 05/14 05/14: Goal - TPN and PO intake to meet > 75% est needs Malnutrition Findings: Food and Nutrition Intake (Mod: <75% est energy req 7days Weight Status: Overweight NEO ASHRAF MD May 18, 2017 10:29
--- NOTE | 2017-05-18 13:26 | PDOC ---
PROGRESS NOTES Subjective Subjective c/c - Colon ca -s/p chemo 04/27/17. ROS - feels weak, dyspnea Objective Objective Vital Signs Date Time Temp Pulse Resp B/P (MAP) Pulse Ox O2 Delivery O2 Flow Rate FiO2 05/18/17 11:00 97.4 60 18 108/55 (72) 98 Nasal Cannula 2.0 97.4 Intake and Output 05/18/17 07:00 Intake Total 1857 ml Output Total 1500 ml Balance 357 ml Intake Oral 1375 ml IV Total 482 ml Output Urine Total 1250 ml Stool Total 250 ml Physical Exam Heart: Normal S1, Normal S2 General: Alert, Oriented X3 Lungs: Clear to auscultation Neuro: Normal speech Psych/Mental Status: Mental status NL Assessment Assessment Assessment/Plan 1. Colon ca -s/p chemo 04/27/17. No evidence of disease after surgery. No further chemo, I will cancel cycle 12. CT for restaging on 05/15/17 reveals no evidence of disease. CEA normal. 2. Urinary tract infection. Appreciate ID management. 3. Neutropenia and thrombocytopenia from chemo, monitor cbc. WBC 6.4, plt 89. 4. had code on floor - was shocked 6 times and has had some brief torsades since being in ICU, not intubated and ok bp and feels ok. Management per Dr Fernando. 5. Progressive dyspnea, multifactorial secondary to CHF, weakness from her recent chemotherapy and toxicities/ NEW CM EF 25 % 6. Weakness. I d/w Dr Fernando, agree with cardiac cath. Comment Review of Relevant I have reviewed the following items armida (where applicable) has been applied. Labs Laboratory Tests Test 05/17/17 06:30 05/18/17 06:10 Sodium Level 134 mmol/L (136-145) 134 mmol/L (136-145) Potassium Level 4.2 mmol/L (3.5-5.1) 3.7 mmol/L (3.5-5.1) Chloride Level 99 mmol/L (98-107) 101 mmol/L (98-107) Carbon Dioxide Level 33 mmol/L (21-32) 30 mmol/L (21-32) Anion Gap 2 (6-14) 3 (6-14) Blood Urea Nitrogen 21 mg/dL (7-20) 24 mg/dL (7-20) Creatinine 0.9 mg/dL (0.6-1.0) 0.9 mg/dL (0.6-1.0) Estimated GFR (Cockcroft-Gault) 61.2 61.2 Glucose Level 118 mg/dL (70-99) 109 mg/dL (70-99) Calcium Level 8.3 mg/dL (8.5-10.1) 7.8 mg/dL (8.5-10.1) Phosphorus Level 4.4 mg/dL (2.6-4.7) Magnesium Level 2.2 mg/dL (1.8-2.4) Laboratory Tests Test 05/18/17 06:10 Sodium Level 134 mmol/L (136-145) Potassium Level 3.7 mmol/L (3.5-5.1) Chloride Level 101 mmol/L (98-107) Carbon Dioxide Level 30 mmol/L (21-32) Anion Gap 3 (6-14) Blood Urea Nitrogen 24 mg/dL (7-20) Creatinine 0.9 mg/dL (0.6-1.0) Estimated GFR (Cockcroft-Gault) 61.2 Glucose Level 109 mg/dL (70-99) Calcium Level 7.8 mg/dL (8.5-10.1) Microbiology 05/06/17 Urine Culture - Final, Complete 05/06/17 Urine Culture Result 1 (MARINE) - Final, Complete Medications Current Medications Ceftriaxone Sodium 1 gm/ Dextrose 50 ml @ 100 mls/hr Q24H IV ; Start 05/05/17 at 18:00; Status UNV Vancomycin HCl (Vanco Per Pharmacy) 1 each PRN DAILY PRN MC SEE COMMENTS Last administered on 05/06/17 12:53; Start 05/05/17 at 18:00; Stop 05/06/17 at 13:10 ; Status DC Ceftriaxone Sodium (Rocephin) 1 gm Q24H IVP Last administered on 05/12/17 17: 46; Start 05/05/17 at 18:00; Stop 05/13/17 at 08:09; Status DC Sodium Chloride 1,000 ml @ 75 mls/hr [id number] IV Last administered on 04:20; Start 05/05/17 at 18:15; Stop 05/08/17 at 13:44; Status DC Atorvastatin Calcium (Lipitor) 40 mg DAILY PO Last administered on 05/18/17 09:03; Start 05/06/17 at 09:00 Diazepam (Valium) 5 mg TID PO Last administered on 05/18/17 09:03; Start 05/05/17 at 21:00 Levothyroxine Sodium (Synthroid) 75 mcg DAILYAC PO Last administered on 09:03; Start 05/06/17 at 07:30 Metoprolol Tartrate (Lopressor) 25 mg BID PO Last administered on 05/18/17 09 :02; Start 05/05/17 at 21:00 Pantoprazole Sodium (Protonix) 40 mg DAILY PO Last administered on 05/18/17 09:03; Start 05/06/17 at 09:00 Tramadol HCl (Ultram) 50 mg PRN Q6HRS PRN PO PAIN Last administered on 09:02; Start 05/05/17 at 18:15 Ondansetron HCl (Zofran Odt) 8 mg PRN Q12HRS PRN PO NAUSEA/VOMITING Last administered on 05/11/17 11:52; Start 05/05/17 at 18:30 Venlafaxine HCl (Effexor Xr) 75 mg DAILY PO Last administered on 05/18/17 09: 02; Start 05/06/17 at 09:00 Vancomycin HCl 1.75 gm/Dextrose 500 ml @ 250 mls/hr 1X ONCE IV Last administered on 05/05/17 19:21; Start 05/05/17 at 18:30; Stop 05/05/17 at 20:29 ; Status DC Vancomycin HCl 1 gm/Dextrose 250 ml @ 250 mls/hr Q24H IV ; Start 05/06/17 at 19 :30; Stop 05/06/17 at 19:30; Status DC Vancomycin HCl 1 each 1X ONCE MC ; Start 05/07/17 at 19:00; Stop 05/07/17 at 19:01; Status Cancel Acyclovir (Zovirax) 400 mg [id number] PO Last administered on 05/18/17 09:03; Start 05/06/17 at 09:00 Doxycycline Hyclate (Vibra-Tab) 100 mg BID PO Last administered on 05/11/17 21:01; Start 05/06/17 at 14:00; Stop 05/12/17 at 07:50; Status DC Multi-Ingredient Mouthwash/Gargle (Magic Mouthwash) 10 ml PRN QID PRN PO MOUTH PAIN Last administered on 05/08/17 10:12; Start 05/07/17 at 09:00 Nystatin 5 ml [id number] Last administered on 05/16/17 17:00; Start at 13:00 Potassium Chloride/Dextrose/ Sod Cl 1,000 ml @ 75 mls/hr [id number] IV ; Start at 14:00; Stop 05/08/17 at 16:37; Status DC Potassium Chloride (Klor-Con) 40 meq 1X ONCE PO Last administered on 14:12; Start 05/08/17 at 14:00; Stop 05/08/17 at 14:01; Status DC Amiodarone HCl 900 mg/Dextrose 518 ml @ 34.53 mls/ hr CONT PRN IV SEE I/O RECORD Last administered on 05/09/17 14:28; Start 05/08/17 at 14:45; Stop at 14:29; Status DC Amiodarone HCl 900 mg/Dextrose 518 ml @ 0 mls/hr CONT PRN IV SEE I/O RECORD; Start 05/08/17 at 14:45; Status UNV Sodium Chloride 500 ml @ 500 mls/hr 1X ONCE IV Last administered on 15:30; Start 05/08/17 at 15:30; Stop 05/08/17 at 16:29; Status DC Sodium Bicarbonate 100 meq 1X ONCE IV Last administered on 05/08/17 16:52; Start 05/08/17 at 15:30; Stop 05/08/17 at 15:31; Status DC Magnesium Sulfate/ Dextrose 100 ml @ 100 mls/hr 1X ONCE IV Last administered on 05/08/17 16:00; Start 05/08/17 at 16:00; Stop 05/08/17 at 16:59; Status DC Magnesium Sulfate/ Dextrose 100 ml @ 100 mls/hr 1X ONCE IV Last administered on 05/08/17 16:00; Start 05/08/17 at 16:00; Stop 05/08/17 at 16:59; Status DC Potassium Chloride (Klor-Con) 40 meq [id number] PO ; Start 05/09/17 at 08:00; Stop 05/09/17 at 08:17; Status DC Potassium Chloride (Klor-Con) 40 meq 1X ONCE PO Last administered on 16:53; Start 05/08/17 at 17:00; Stop 05/08/17 at 17:01; Status DC Potassium Chloride/Sodium Chloride 1,000 ml @ 80 mls/hr [id number] IV Last administered on 05/09/17 05:49; Start 05/08/17 at 17:30; Stop 05/09/17 at 18 :27; Status DC Amiodarone HCl 150 mg/Dextrose 103 ml @ 618 mls/hr 1X ONCE IV Last administered on 05/09/17 07:22; Start 05/09/17 at 07:00; Stop 05/09/17 at 07 :09; Status DC Magnesium Sulfate/ Dextrose 50 ml @ 25 mls/hr 1X ONCE IV Last administered on 05/09/17 07:11; Start 05/09/17 at 07:00; Stop 05/09/17 at 08:59; Status DC Potassium Chloride 50 ml @ 25 mls/hr PRN Q2HRS PRN IV K-3.1 TO 3.5 Last administered on 05/09/17 11:44; Start 05/09/17 at 06:45; Stop 05/09/17 at 11 :44; Status DC Potassium Chloride 50 ml @ 25 mls/hr PRN Q2HRS PRN IV K 2.6 TO 3; Start at 06:45 Potassium Chloride 50 ml @ 25 mls/hr PRN Q2HRS PRN IV FOR K<2.6; Start at 08:00 Magnesium Sulfate/ Dextrose 100 ml @ 50 mls/hr PRN DAILY PRN IV MAG<1.8 Last administered on 05/11/17 09:59; Start 05/09/17 at 09:00 Potassium Chloride 50 ml @ 50 mls/hr Q1H IV ; Start 05/09/17 at 08:15; Stop at 10:14; Status Cancel Potassium Chloride 50 ml @ 50 mls/hr DAILY IV Last administered on 05/11/17 08:51; Start 05/10/17 at 09:00; Stop 05/11/17 at 09:59; Status DC Potassium Chloride 50 ml @ 50 mls/hr Q1H IV Last administered on 05/09/17 10: 00; Start 05/09/17 at 09:00; Stop 05/09/17 at 10:59; Status DC Potassium Chloride (Klor-Con) 40 meq 1X ONCE PO ; Start 05/09/17 at 11:00; Stop 05/09/17 at 11:01; Status DC Potassium Chloride/Dextrose/ Sod Cl 1,000 ml @ 75 mls/hr [id number] IV Last administered on 05/10/17 17:58; Start 05/09/17 at 11:00; Stop 05/11/17 at 08 :26; Status DC Calcium Gluconate (Calcium Gluconate) 1,000 mg 1X ONCE IVP Last administered on 05/09/17 14:28; Start 05/09/17 at 14:00; Stop 05/09/17 at 14:01; Status DC Info 1 each PRN DAILY PRN MC SEE COMMENTS Last administered on 05/17/17 13:47 ; Start 05/09/17 at 13:45 Amiodarone HCl 150 mg/Dextrose 103 ml @ 618 mls/hr 1X ONCE IV Last administered on 05/09/17 14:28; Start 05/09/17 at 14:00; Stop 05/09/17 at 14 :09; Status DC Amiodarone HCl (Cordarone) 400 mg BID PO Last administered on 05/18/17 09:05 ; Start 05/09/17 at 21:00 Sodium Chloride 90 meq/Potassium Chloride 50 meq/ Potassium Phosphate 13.6 mmol/ Magnesium Sulfate 10 meq/ Calcium Gluconate 10 meq/ Multivitamins 10 ml/Chromium / Copper/Manganese/ Seleni/Zn 1 ml/ Total Parenteral Nutrition/Amino Acids/ Dextrose/ Fat Emulsion Intravenous 1,387.0013 ml @ 3.625 mls/hr TPN CONT IV ; Start 05/09/17 at 22:00; Status UNV Sodium Chloride 90 meq/Potassium Acetate 70 meq/ Potassium Phosphate 18 mmol/ Magnesium Sulfate 12 meq/Calcium Gluconate 10 meq/ Multivitamins 10 ml/Chromium / Copper/Manganese/ Seleni/Zn 1 ml/ Total Parenteral Nutrition/Amino Acids/ Dextrose/ Fat Emulsion Intravenous 1,512 ml @ 63 mls/hr TPN CONT IV Last administered on 05/09/17 21:39; Start 05/09/17 at 22:00; Stop 05/10/17 at 21 :59; Status DC Magnesium Sulfate/ Dextrose 50 ml @ 25 mls/hr 1X ONCE IV ; Start 05/09/17 at 15:15; Stop 05/09/17 at 17:14; Status DC Procainamide HCl 2000 mg/Dextrose 520 ml @ 31.2 mls/hr CONT PRN IV SEE I/O RECORD Last administered on 05/11/17 21:55; Start 05/09/17 at 16:00; Stop at 11:28; Status DC Procainamide HCl 500 mg/Dextrose 55 ml @ 110 mls/hr 1X ONCE IV Last administered on 05/09/17 15:49; Start 05/09/17 at 15:30; Stop 05/09/17 at 15 :59; Status DC Procainamide HCl 2000 mg/Dextrose 520 ml @ 0 mls/hr CONT PRN IV SEE I/O RECORD ; Start 05/09/17 at 15:45; Status UNV Sodium Phosphate 30 mmol/Dextrose 260 ml @ 65 mls/hr 1X ONCE IV ; Start 05/09 at 17:45; Stop 05/09/17 at 21:44; Status Cancel Sodium Phosphate 20 mmol/Dextrose 256.6667 ml @ 64.167 m... 1X ONCE IV Last administered on 05/09/17 18:10; Start 05/09/17 at 17:45; Stop 05/09/17 at 21 :44; Status DC Magnesium Sulfate/ Dextrose 100 ml @ 100 mls/hr 1X ONCE IV Last administered on 05/10/17 01:48; Start 05/10/17 at 02:00; Stop 05/10/17 at 02:59; Status DC Midazolam HCl (Versed) 1 mg PRN Q2HR PRN IV SEDATION; Start 05/10/17 at 02:30 ; Stop 05/16/17 at 11:50; Status DC Midazolam HCl (Versed) 2 mg PRN Q2HR PRN IV SEDATION; Start 05/10/17 at 02:30 ; Stop 05/16/17 at 11:50; Status DC Amiodarone HCl 900 mg/Dextrose 518 ml @ 0 mls/hr CONT PRN IV SEE I/O RECORD; Start 05/10/17 at 03:45; Status UNV Amiodarone HCl 450 mg/Dextrose 259 ml @ 17.26 mls/ hr CONT PRN IV SEE I/O RECORD Last administered on 05/11/17 05:43; Start 05/10/17 at 04:00 Lidocaine HCl/ Dextrose 500 ml @ 0 mls/hr CONT PRN IV SEE I/O RECORD Last administered on 05/12/17 05:40; Start 05/10/17 at 04:00; Stop 05/12/17 at 17 :20; Status DC Lidocaine HCl (Lidocaine HCl 2% Abboject) 100 mg 1X ONCE IV Last administered on 05/10/17 04:13; Start 05/10/17 at 04:30; Stop 05/10/17 at 04:31; Status DC Amiodarone HCl (Cordarone) 300 mg STK-MED ONCE .ROUTE ; Start 05/09/17 at 23:00 ; Stop 05/10/17 at 11:00; Status DC Atropine Sulfate 1 mg STK-MED ONCE .ROUTE ; Start 05/09/17 at 23:00; Stop at 11:00; Status DC Epinephrine HCl (EPINEPHrine SYRINGE) 3 mg STK-MED ONCE .ROUTE ; Start at 23:00; Stop 05/10/17 at 11:00; Status DC Lidocaine HCl (Lidocaine HCl 2% Abboject) 100 mg STK-MED ONCE .ROUTE ; Start at 23:00; Stop 05/10/17 at 11:00; Status DC Magnesium Sulfate/ Dextrose (Magnesium Sulfate PREMIX 1GM) 2 gm STK-MED ONCE IV ; Start 05/09/17 at 23:00; Stop 05/10/17 at 11:00; Status DC Potassium Phosphate 13.6 mmol/Dextrose 104.5333 ml @ 52.267 m... ONCE ONCE IV Last administered on 05/10/17 15:54; Start 05/10/17 at 14:00; Stop at 15:59; Status DC Sodium Acetate 90 meq/Potassium Chloride 70 meq/ Potassium Phosphate 20.4 mmol/ Magnesium Sulfate 18 meq/ Calcium Gluconate 10 meq/ Multivitamins 10 ml/Chromium / Copper/Manganese/ Seleni/Zn 1 ml/ Total Parenteral Nutrition/Amino Acids/ Dextrose/ Fat Emulsion Intravenous 1,512 ml @ 63 mls/hr TPN CONT IV Last administered on 05/10/17 22:00; Start 05/10/17 at 22:00; Stop 05/11/17 at 21 :59; Status DC Lidocaine/Sodium Bicarbonate (Buffered Lidocaine 1%) 20 ml STK-MED ONCE IJ ; Start 05/10/17 at 13:45; Stop 05/10/17 at 13:46; Status DC Lidocaine/Sodium Bicarbonate (Buffered Lidocaine 1%) 3 ml 1X ONCE IJ Last administered on 05/10/17 13:45; Start 05/10/17 at 13:45; Stop 05/10/17 at 13 :57; Status DC Sodium Chloride 250 ml @ 250 mls/hr 1X ONCE IV ; Start 05/10/17 at 13:45; Stop 05/10/17 at 14:44; Status DC Albuterol Sulfate (Ventolin Neb Soln) 2.5 mg 1X ONCE NEB Last administered on 05/10/17 19:54; Start 05/10/17 at 20:00; Stop 05/10/17 at 20:01; Status DC Furosemide (Lasix) 40 mg 1X ONCE IVP Last administered on 05/10/17 21:22; Start 05/10/17 at 21:30; Stop 05/10/17 at 21:31; Status DC Dobutamine HCl/ Dextrose 250 ml @ 0 mls/hr CONT PRN IV SEE I/O RECORD Last administered on 05/13/17 20:58; Start 05/10/17 at 21:15 Sodium Acetate 120 meq/Potassium Chloride 70 meq/ Potassium Phosphate 27.2 mmol/ Magnesium Sulfate 22 meq/ Calcium Gluconate 5 meq/ Multivitamins 10 ml/Chromium / Copper/Manganese/ Seleni/Zn 1 ml/ Total Parenteral Nutrition/Amino Acids/ Dextrose/ Fat Emulsion Intravenous 1,512 ml @ 63 mls/hr TPN CONT IV ; Start 05/11/17 at 22:00; Stop 05/12/17 at 21:59; Status Cancel Potassium Phosphate 13.6 mmol/Dextrose 104.5333 ml @ 52.267 m... ONCE ONCE IV Last administered on 05/11/17 13:24; Start 05/11/17 at 13:00; Stop at 14:59; Status DC Sodium Acetate 120 meq/Potassium Chloride 70 meq/ Potassium Phosphate 25 mmol/ Magnesium Sulfate 22 meq/Calcium Gluconate 5 meq/ Multivitamins 10 ml/Chromium/ Copper/Manganese/ Seleni/Zn 1 ml/ Total Parenteral Nutrition/Amino Acids/ Dextrose/ Fat Emulsion Intravenous 1,512 ml @ 63 mls/hr TPN CONT IV Last administered on 05/11/17 21:56; Start 05/11/17 at 22:00; Stop 05/12/17 at 21 :59; Status DC Furosemide (Lasix) 40 mg DAILY IVP Last administered on 05/18/17 09:05; Start 05/12/17 at 09:00 Sodium Acetate 120 meq/Potassium Chloride 70 meq/ Potassium Phosphate 25 mmol/ Magnesium Sulfate 22 meq/Calcium Gluconate 5 meq/ Multivitamins 10 ml/Chromium/ Copper/Manganese/ Seleni/Zn 1 ml/ Total Parenteral Nutrition/Amino Acids/ Dextrose/ Fat Emulsion Intravenous 1,512 ml @ 63 mls/hr TPN CONT IV Last administered on 05/12/17 22:50; Start 05/12/17 at 22:00; Stop 05/13/17 at 21 :59; Status DC Magnesium Sulfate/ Dextrose (Magnesium Sulfate PREMIX 1GM) 2 gm STK-MED ONCE IV ; Start 05/05/17 at 12:00; Stop 05/12/17 at 17:24; Status DC Sodium Acetate 120 meq/Potassium Chloride 70 meq/ Potassium Phosphate 25 mmol/ Magnesium Sulfate 22 meq/Calcium Gluconate 5 meq/ Multivitamins 10 ml/Chromium/ Copper/Manganese/ Seleni/Zn 1 ml/ Sodium Chloride 40 meq/Total Parenteral Nutrition/Amino Acids/Dextrose/ Fat Emulsion Intravenous 1,512 ml @ 63 mls/hr TPN CONT IV Last administered on 05/13/17 23:09; Start 05/13/17 at 22:00; Stop 05/14/17 at 21:59; Status DC Iohexol (Omnipaque 240 Mg/ml) 30 ml 1X ONCE PO ; Start 05/14/17 at 09:15; Stop 05/14/17 at 09:16; Status DC Iohexol (Omnipaque 300 Mg/ml) 75 ml 1X ONCE IV ; Start 05/14/17 at 09:15; Stop 05/14/17 at 09:16; Status DC Info (Do NOT chart on this entry -- for MONITORING) 1 each PRN DAILY PRN MC SEE COMMENTS; Start 05/14/17 at 09:15; Stop 05/15/17 at 13:59; Status DC Heparin Sodium/ Sodium Chloride 500 ml @ As Directed STK-MED ONCE .ROUTE ; Start 05/14/17 at 12:16; Stop 05/14/17 at 12:17; Status DC Lidocaine HCl 20 ml STK-MED ONCE .ROUTE ; Start 05/14/17 at 12:17; Stop at 12:18; Status DC Iohexol (Omnipaque 300 Mg/ml) 100 ml STK-MED ONCE .ROUTE ; Start 05/14/17 at 12 :17; Stop 05/14/17 at 12:18; Status DC Sodium Acetate 120 meq/Potassium Chloride 70 meq/ Potassium Phosphate 18 mmol/ Magnesium Sulfate 22 meq/Calcium Gluconate 5 meq/ Multivitamins 10 ml/Chromium/ Copper/Manganese/ Seleni/Zn 1 ml/ Sodium Chloride 40 meq/Total Parenteral Nutrition/Amino Acids/Dextrose/ Fat Emulsion Intravenous 1,512 ml @ 63 mls/hr TPN CONT IV Last administered on 05/14/17 20:42; Start 05/14/17 at 22:00; Stop 05/15/17 at 21:59; Status DC Fentanyl Citrate (Fentanyl 2ml Vial) 100 mcg STK-MED ONCE .ROUTE ; Start at 12:56; Stop 05/14/17 at 12:57; Status DC Midazolam HCl (Versed) 2 mg STK-MED ONCE .ROUTE ; Start 05/14/17 at 12:56; Stop 05/14/17 at 12:57; Status DC Heparin Sodium/ Sodium Chloride 1,000 unit 1X ONCE IART Last administered on 05/14/17 13:30; Start 05/14/17 at 13:30; Stop 05/14/17 at 13:37; Status DC Midazolam HCl (Versed) 1 mg 1X ONCE IV Last administered on 05/14/17 13:30; Start 05/14/17 at 13:30; Stop 05/14/17 at 13:37; Status DC Iohexol (Omnipaque 300 Mg/ml) 54 ml 1X ONCE IART Last administered on 13:30; Start 05/14/17 at 13:30; Stop 05/14/17 at 13:37; Status DC Lidocaine HCl 20 ml 1X ONCE IJ Last administered on 05/14/17 13:30; Start 05/14/17 at 13:30; Stop 05/14/17 at 13:37; Status DC Iohexol (Omnipaque 240 Mg/ml) 50 ml 1X ONCE PO Last administered on 08:00; Start 05/15/17 at 08:00; Stop 05/15/17 at 08:10; Status DC Info (Do NOT chart on this entry -- for MONITORING) 1 each PRN DAILY PRN MC SEE COMMENTS; Start 05/15/17 at 08:15; Stop 05/15/17 at 13:59; Status DC Iohexol (Omnipaque 300 Mg/ml) 75 ml 1X ONCE IV Last administered on 09:34; Start 05/15/17 at 09:30; Stop 05/15/17 at 09:31; Status DC Info (Do NOT chart on this entry -- for MONITORING) 1 each PRN DAILY PRN MC SEE COMMENTS; Start 05/15/17 at 09:30; Stop 05/17/17 at 09:29; Status DC Ceftriaxone Sodium 1 gm/ Dextrose 50 ml @ 100 mls/hr Q24H IV ; Start 05/15/17 at 11:00; Stop 05/15/17 at 11:01; Status DC Sodium Acetate 120 meq/Potassium Chloride 70 meq/ Potassium Phosphate 18 mmol/ Magnesium Sulfate 22 meq/Calcium Gluconate 5 meq/ Multivitamins 10 ml/Chromium/ Copper/Manganese/ Seleni/Zn 1 ml/ Sodium Chloride 40 meq/Total Parenteral Nutrition/Amino Acids/Dextrose/ Fat Emulsion Intravenous 1,512 ml @ 63 mls/hr TPN CONT IV Last administered on 05/15/17 21:05; Start 05/15/17 at 22:00; Stop 05/16/17 at 21:59; Status DC Sodium Acetate 120 meq/Potassium Chloride 70 meq/ Potassium Phosphate 18 mmol/ Magnesium Sulfate 22 meq/Calcium Gluconate 5 meq/ Multivitamins 10 ml/Chromium/ Copper/Manganese/ Seleni/Zn 1 ml/ Sodium Chloride 40 meq/Total Parenteral Nutrition/Amino Acids/Dextrose/ Fat Emulsion Intravenous 1,320 ml @ 55 mls/hr TPN CONT IV Last administered on 05/16/17 21:47; Start 05/16/17 at 22:00; Stop 05/17/17 at 21:59; Status DC Sodium Acetate 100 meq/Potassium Chloride 70 meq/ Potassium Phosphate 13.6 mmol/ Magnesium Sulfate 15 meq/ Calcium Gluconate 5 meq/ Multivitamins 10 ml/Chromium / Copper/Manganese/ Seleni/Zn 1 ml/ Sodium Chloride 80 meq/Total Parenteral Nutrition/Amino Acids/Dextrose/ Fat Emuls... 1,320 ml @ 55 mls/hr TPN CONT IV Last administered on 05/17/17 21:20; Start 05/17/17 at 22:00; Stop at 21:59 Active Scripts Active Reported Levofloxacin 500 Mg Tablet 500 Mg PO DAILY Tramadol Hcl 50 Mg Tablet 50 Mg PO Q6H PRN Ondansetron Hcl 4 Mg Tablet 8 Mg PO BID PRN Breeding 5-325 Tablet (Acetaminophen/Hydrocodone Bitart) 1 Each Tablet 1-2 Tab PO Q4HRS PRN Atorvastatin Calcium 40 Mg Tablet 1 Tab PO DAILY Metoprolol Tartrate 25 Mg Tablet 1 Tab PO BID Pantoprazole Sodium 40 Mg Tablet.dr 1 Tab PO DAILY Diazepam 5 Mg Tablet 5 Mg PO TID Venlafaxine Hcl Er (Venlafaxine Hcl) 75 Mg Cap.er.24h 75 Mg PO DAILY Synthroid (Levothyroxine Sodium) 75 Mcg Tablet 75 Mcg PO DAILYAC Vitals/I & O Vital Sign - Last 24 Hours 05/17/17 05/17/17 05/17/17 05/17/17 15:00 19:10 20:00 21:17 Temp 97.2 97.2 97.2 97.2 Pulse 58 61 Resp 18 18 20 B/P (MAP) 104/56 (72) 111/62 (78) Pulse Ox 92 97 O2 Delivery Nasal Cannula Nasal Cannula Nasal Cannula O2 Flow Rate 2.0 2.0 2.0 05/17/17 05/17/17 05/17/17 05/17/17 21:18 21:18 22:17 22:45 Temp 97.7 97.7 Pulse 63 63 64 Resp 20 18 B/P (MAP) 103/54 103/54 104/51 (68) Pulse Ox 96 O2 Delivery Nasal Cannula O2 Flow Rate 2.0 05/18/17 05/18/17 05/18/17 05/18/17 02:45 07:00 08:10 09:02 Temp 97.4 98.6 97.4 98.6 Pulse 65 61 62 Resp 20 16 B/P (MAP) 118/64 (82) 102/58 (73) 102/58 Pulse Ox 96 96 O2 Delivery Nasal Cannula Nasal Cannula Nasal Cannula O2 Flow Rate 2.0 2.0 2.0 05/18/17 05/18/17 05/18/17 05/18/17 09:02 09:05 10:00 11:00 Temp 97.4 97.4 Pulse 62 60 Resp 18 B/P (MAP) 102/58 108/55 (72) Pulse Ox 98 O2 Delivery Nasal Cannula Nasal Cannula Nasal Cannula O2 Flow Rate 2.0 2.0 2.0 Intake and Output 05/17/17 05/17/17 05/18/17 15:00 23:00 07:00 Intake Total 200 ml 655 ml 1002 ml Output Total 1050 ml 450 ml Balance -850 ml 655 ml 552 ml Nutrition Consultation Dietary Evaluation: Recommendations by RD: Increase Calorie Intake, PPN/TPN Comments: Continue current TPN infusion: 225 g dextrose, 60 g AA, 20 g lipid Encouraged continued improving PO intake Can dc TPN once PO intake meeting > 65% est needs Expected Outcomes/Goals: TPN infusion initiated and meeting > 75% est needs within 24 - 48 hrs - met, new goal established 05/14 05/14: Goal - TPN and PO intake to meet > 75% est needs Malnutrition Findings: Food and Nutrition Intake (Mod: <75% est energy req 7days Weight Status: Overweight DANIEL MROALEZ MD May 18, 2017 13:26
[2017-05-18] MEDS: TPN PER PHARMACY MC PRN (13:57)
--- NOTE | 2017-05-18 15:33 | PDOC ---
PULMONARY PROGRESS NOTES Subjective PT FEELS BETTER LESS SOA Vitals Vital Signs Date Time Temp Pulse Resp B/P (MAP) Pulse Ox O2 Delivery O2 Flow Rate FiO2 05/18/17 14:51 97.8 58 18 96/58 (71) 98 Nasal Cannula 2.0 97.8 ROS: No Nausea, No Abdominal Pain, No Increase Cough General: Alert, No acute distress Lungs: Other (decrease bases) Cardiovascular: S1, S2 Abdomen: Soft Neuro Exam: Alert Extremities: Other (1=EDEMA) Skin: Warm Labs Laboratory Tests Test 05/17/17 06:30 05/18/17 06:10 Sodium Level 134 mmol/L (136-145) 134 mmol/L (136-145) Potassium Level 4.2 mmol/L (3.5-5.1) 3.7 mmol/L (3.5-5.1) Chloride Level 99 mmol/L (98-107) 101 mmol/L (98-107) Carbon Dioxide Level 33 mmol/L (21-32) 30 mmol/L (21-32) Anion Gap 2 (6-14) 3 (6-14) Blood Urea Nitrogen 21 mg/dL (7-20) 24 mg/dL (7-20) Creatinine 0.9 mg/dL (0.6-1.0) 0.9 mg/dL (0.6-1.0) Estimated GFR (Cockcroft-Gault) 61.2 61.2 Glucose Level 118 mg/dL (70-99) 109 mg/dL (70-99) Calcium Level 8.3 mg/dL (8.5-10.1) 7.8 mg/dL (8.5-10.1) Phosphorus Level 4.4 mg/dL (2.6-4.7) Magnesium Level 2.2 mg/dL (1.8-2.4) Laboratory Tests Test 05/18/17 06:10 Sodium Level 134 mmol/L (136-145) Potassium Level 3.7 mmol/L (3.5-5.1) Chloride Level 101 mmol/L (98-107) Carbon Dioxide Level 30 mmol/L (21-32) Anion Gap 3 (6-14) Blood Urea Nitrogen 24 mg/dL (7-20) Creatinine 0.9 mg/dL (0.6-1.0) Estimated GFR (Cockcroft-Gault) 61.2 Glucose Level 109 mg/dL (70-99) Calcium Level 7.8 mg/dL (8.5-10.1) Medications Active Scripts Medications Dose Route/Sig Max Daily Dose Days Date Category Levofloxacin 500 Mg Tablet 500 Mg PO DAILY 05/05/17 Reported Tramadol Hcl 50 Mg Tablet 50 Mg PO Q6H PRN 05/05/17 Reported Ondansetron Hcl 4 Mg Tablet 8 Mg PO BID PRN 05/05/17 Reported [place] 5-325 Tablet (Acetaminophen/Hydrocodone Bitart) 1 Each Tablet 1-2 Tab PO Q4HRS PRN 10/19/16 Reported Atorvastatin Calcium 40 Mg Tablet 1 Tab PO DAILY 10/18/15 Reported Metoprolol Tartrate 25 Mg Tablet 1 Tab PO BID 10/18/15 Reported Pantoprazole Sodium 40 Mg Tablet. 1 Tab PO DAILY 04/26/15 Reported Diazepam 5 Mg Tablet 5 Mg PO TID 03/07/15 Reported Venlafaxine Hcl Er (Venlafaxine Hcl) 75 Mg Cap.er.24h 75 Mg PO DAILY 03/07/15 Reported Synthroid (Levothyroxine Sodium) 75 Mcg Tablet 75 Mcg PO DAILYAC 03/07/15 Reported Impression . 1. Progressive dyspnea POA, multifactorial secondary to CHF, weakness from her recent chemotherapy and toxicities/ NEW CM EF 25 %. 2. Stage 4 Colon cancer. 3. Leukopenia/ thrombocytopenia secondary to chemotherapy.much improved 4. Thrombocytopenia.improving 5. Acute renal failure, improved 6. Urinary tract infection. 7. Protein malnutrition present upon admission. 8. CODE BLUE ,V- TACH PER DR ASHRAF 9. Mild interstitial edema POA PT S/P CODE FOR V TACH, HAD SHOCKED MULTIPLE TIMES OFF BIPAP/ OFF DOBUTAMINE S/P CATH/ NORMAL CORONARIES/ EF BETTER 40% Plan . SPOKE WITH DIETITIAN WILL D/C TPN TRANSFER SOON TO [facility] WILL NEED REHAB FOR A WHILE JEFF FISCHER MD May 18, 2017 15:33
[2017-05-19] MEDS: traMADol 50 MG TABLET PO PRN ×2 (01:36→08:50)
[2017-05-19 02:13] VITALS: BP 100/54
[2017-05-19 07:45] VITALS: BP 93/47
[2017-05-19] MEDS: LEVOTHYROXINE 75 MCG TABLET PO SCH (08:49)
[2017-05-19] MEDS: ATORVASTATIN CALCIUM 40 MG TABLET. PO SCH (08:49)
[2017-05-19] MEDS: ACYCLOVIR 200 MG CAPSULE. PO SCH ×2 (08:49→13:59)
[2017-05-19] MEDS: VENLAFAXINE XR 37.5 MG CAP.ER.24H. PO SCH (08:50)
[2017-05-19] MEDS: PANTOPRAZOLE 40 MG TABLET.DR. PO SCH (08:50)
[2017-05-19] MEDS: diazePAM 5 MG TABLET PO SCH ×2 (08:50→13:43)
[2017-05-19] MEDS: FUROSEMIDE 40 MG/4 ML VIAL. IVP SCH (08:51)
[2017-05-19] MEDS: AMIODARONE HCL 200 MG TABLET. PO SCH (08:51)
[2017-05-19] MEDS: METOPROLOL TART IMMED RELEASE 25 MG TABLET. PO SCH (08:51)
[2017-05-19] MEDS: NYSTATIN 100,000 UNITS/ML 5 ML ORAL.SUSP. SWSW SCH ×2 (08:51→13:00)
--- NOTE | 2017-05-19 08:54 | PDOC ---
GENERAL General: vss and afebrile. awake and alert and son in attendance. pulmonary dced TPN and eating about 50% meals per nursing. exam stable. likely to snu later today if ok with all. Problems: VITAL SIGNS Vital Signs: Vital Signs Date Time Temp Pulse Resp B/P (MAP) Pulse Ox O2 Delivery O2 Flow Rate FiO2 05/19/17 07:55 Nasal Cannula 2.0 05/19/17 07:45 98.5 61 18 93/47 (62) 98 98.5 I & O I & O Intake and Output 05/19/17 07:00 Intake Total 1730 ml Output Total 3125 ml Balance -1395 ml Intake Oral 1730 ml Output Urine Total 2125 ml Stool Total 1000 ml ALLERGIES Allergies: Allergies Coded Allergies Type Severity Reaction Last Updated Verified codeine Adverse Reaction Intermediate Patient states hallucinations 10/19/16 Yes MEDS Medications: Current Medications Medications (Trade) Dose Ordered Sig/Fannie Start Time Stop Time Status Last Admin Dose Admin Acyclovir (Zovirax) 400 mg [id number] 05/06/17 09:00 05/18/17 22:21 400 MG Albuterol Sulfate (Ventolin Neb Soln) 2.5 mg 1X ONCE 05/10/17 20:00 05/10/17 20:01 DC 05/10/17 19:54 2.5 MG Amiodarone HCl (Cordarone) 300 mg STK-MED ONCE 05/09/17 23:00 05/10/17 11:00 DC Amiodarone HCl 150 mg/Dextrose 103 ml @ 618 mls/hr 1X ONCE 05/09/17 14:00 05/09/17 14:09 DC 05/09/17 14:28 618 MLS/HR Amiodarone HCl 450 mg/Dextrose 259 ml @ 17.26 mls/ hr CONT PRN 05/10/17 04:00 05/11/17 05:43 17.26 MLS/HR Amiodarone HCl 900 mg/Dextrose 518 ml @ 0 mls/hr CONT PRN 05/10/17 03:45 UNV Atorvastatin Calcium (Lipitor) 40 mg DAILY 05/06/17 09:00 05/18/17 09:03 40 MG Atropine Sulfate 1 mg STK-MED ONCE 05/09/17 23:00 05/10/17 11:00 DC Calcium Gluconate (Calcium Gluconate) 1,000 mg 1X ONCE 05/09/17 14:00 05/09/17 14:01 DC 05/09/17 14:28 1,000 MG Ceftriaxone Sodium 1 gm/ Dextrose 50 ml @ 100 mls/hr Q24H 05/15/17 11:00 05/15/17 11:01 DC Ceftriaxone Sodium (Rocephin) 1 gm Q24H 05/05/17 18:00 05/13/17 08:09 DC 05/12/17 17:46 1 GM Diazepam (Valium) 5 mg TID 05/05/17 21:00 05/18/17 22:21 5 MG Dobutamine HCl/ Dextrose 250 ml @ 0 mls/hr CONT PRN 05/10/17 21:15 05/13/17 20:58 5.756 MLS/HR Doxycycline Hyclate (Vibra-Tab) 100 mg BID 05/06/17 14:00 05/12/17 07:50 DC 05/11/17 21:01 100 MG Epinephrine HCl (EPINEPHrine SYRINGE) 3 mg STK-MED ONCE 05/09/17 23:00 05/10/17 11:00 DC Fentanyl Citrate (Fentanyl 2ml Vial) 100 mcg STK-MED ONCE 05/14/17 12:56 05/14/17 12:57 DC Furosemide (Lasix) 40 mg DAILY 05/12/17 09:00 05/18/17 09:05 40 MG Heparin Sodium/ Sodium Chloride 1,000 unit 1X ONCE 05/14/17 13:30 05/14/17 13:37 DC 05/14/17 13:30 1,000 UNIT Info (Do NOT chart on this entry -- for MONITORING) 1 each PRN DAILY PRN 05/15/17 09:30 05/17/17 09:29 DC Iohexol (Omnipaque 240 Mg/ml) 50 ml 1X ONCE 05/15/17 08:00 05/15/17 08:10 DC 05/15/17 08:00 50 ML Iohexol (Omnipaque 300 Mg/ml) 75 ml 1X ONCE 05/15/17 09:30 05/15/17 09:31 DC 05/15/17 09:34 75 ML Levothyroxine Sodium (Synthroid) 75 mcg DAILYAC 05/06/17 07:30 05/18/17 09:03 75 MCG Lidocaine HCl 20 ml 1X ONCE 05/14/17 13:30 05/14/17 13:37 DC 05/14/17 13:30 20 ML Lidocaine HCl (Lidocaine HCl 2% Abboject) 100 mg STK-MED ONCE 05/09/17 23:00 05/10/17 11:00 DC Lidocaine HCl/ Dextrose 500 ml @ 0 mls/hr CONT PRN 05/10/17 04:00 05/12/17 17:20 DC 05/12/17 05:40 15 MLS/HR Lidocaine/Sodium Bicarbonate (Buffered Lidocaine 1%) 3 ml 1X ONCE 05/10/17 13:45 05/10/17 13:57 DC 05/10/17 13:45 3 ML Magnesium Sulfate/ Dextrose (Magnesium Sulfate PREMIX 1GM) 2 gm STK-MED ONCE 05/05/17 12:00 05/12/17 17:24 DC Metoprolol Tartrate (Lopressor) 25 mg BID 05/05/17 21:00 05/18/17 22:21 25 MG Midazolam HCl (Versed) 1 mg 1X ONCE 05/14/17 13:30 05/14/17 13:37 DC 05/14/17 13:30 1 MG Multi-Ingredient Mouthwash/Gargle (Magic Mouthwash) 10 ml PRN QID PRN 05/07/17 09:00 05/08/17 10:12 10 ML Nystatin 5 ml [id number] 05/07/17 13:00 05/16/17 17:00 5 ML Ondansetron HCl (Zofran Odt) 8 mg PRN Q12HRS PRN 05/05/17 18:30 05/11/17 11:52 8 MG Pantoprazole Sodium (Protonix) 40 mg DAILY 05/06/17 09:00 05/18/17 09:03 40 MG Potassium Chloride/Dextrose/ Sod Cl 1,000 ml @ 75 mls/hr [id number] 05/09/17 11:00 05/11/17 08:26 DC 05/10/17 17:58 75 MLS/HR Potassium Chloride/Sodium Chloride 1,000 ml @ 80 mls/hr [id number] 05/08/17 17:30 05/09/17 18:27 DC 05/09/17 05:49 80 MLS/HR Potassium Phosphate 13.6 mmol/Dextrose 104.5333 ml @ 52.267 m... ONCE ONCE 05/11/17 13:00 05/11/17 14:59 DC 05/11/17 13:24 52.267 MLS/HR Potassium Chloride (Klor-Con) 40 meq 1X ONCE 05/09/17 11:00 05/09/17 11:01 DC Procainamide HCl 500 mg/Dextrose 55 ml @ 110 mls/hr 1X ONCE 05/09/17 15:30 05/09/17 15:59 DC 05/09/17 15:49 110 MLS/HR Procainamide HCl 2000 mg/Dextrose 520 ml @ 0 mls/hr CONT PRN 05/09/17 15:45 UNV Sodium Acetate 100 meq/Potassium Chloride 70 meq/ Potassium Phosphate 13.6 mmol/Magnesium Sulfate 15 meq/ Calcium Gluconate 5 meq/ Multivitamins 10 ml/Chromium/ Copper/Manganese/ Seleni/Zn 1 ml/ Sodium Chloride 80 meq/Total Parenteral Nutrition/Amino Acids/Dextrose/ Fat Emuls... 1,320 ml @ 55 mls/hr TPN CONT 05/17/17 22:00 05/18/17 21:59 DC 05/17/17 21:20 55 MLS/HR Sodium Acetate 120 meq/Potassium Chloride 70 meq/ Potassium Phosphate 18 mmol/ Magnesium Sulfate 22 meq/Calcium Gluconate 5 meq/ Multivitamins 10 ml/Chromium/ Copper/Manganese/ Seleni/Zn 1 ml/ Sodium Chloride 40 meq/Total Parenteral Nutrition/Amino Acids/Dextrose/ Fat Emulsion Intravenous 1,320 ml @ 55 mls/hr TPN CONT 05/16/17 22:00 05/17/17 21:59 DC 05/16/17 21:47 55 MLS/HR Sodium Acetate 120 meq/Potassium Chloride 70 meq/ Potassium Phosphate 25 mmol/ Magnesium Sulfate 22 meq/Calcium Gluconate 5 meq/ Multivitamins 10 ml/Chromium/ Copper/Manganese/ Seleni/Zn 1 ml/ Sodium Chloride 40 meq/Total Parenteral Nutrition/Amino Acids/Dextrose/ Fat Emulsion Intravenous 1,512 ml @ 63 mls/hr TPN CONT 05/13/17 22:00 05/14/17 21:59 DC 05/13/17 23:09 63 MLS/HR Sodium Acetate 120 meq/Potassium Chloride 70 meq/ Potassium Phosphate 25 mmol/ Magnesium Sulfate 22 meq/Calcium Gluconate 5 meq/ Multivitamins 10 ml/Chromium/ Copper/Manganese/ Seleni/Zn 1 ml/ Total Parenteral Nutrition/Amino Acids/Dextrose/ Fat Emulsion Intravenous 1,512 ml @ 63 mls/hr TPN CONT 05/12/17 22:00 05/13/17 21:59 DC 05/12/17 22:50 63 MLS/HR Sodium Acetate 120 meq/Potassium Chloride 70 meq/ Potassium Phosphate 27.2 mmol/Magnesium Sulfate 22 meq/ Calcium Gluconate 5 meq/ Multivitamins 10 ml/Chromium/ Copper/Manganese/ Seleni/Zn 1 ml/ Total Parenteral Nutrition/Amino Acids/Dextrose/ Fat Emulsion Intravenous 1,512 ml @ 63 mls/hr TPN CONT 05/11/17 22:00 05/12/17 21:59 Cancel Sodium Acetate 90 meq/Potassium Chloride 70 meq/ Potassium Phosphate 20.4 mmol/Magnesium Sulfate 18 meq/ Calcium Gluconate 10 meq/ Multivitamins 10 ml/Chromium/ Copper/Manganese/ Seleni/Zn 1 ml/ Total Parenteral Nutrition/Amino Acids/Dextrose/ Fat Emulsion Intravenous 1,512 ml @ 63 mls/hr TPN CONT 05/10/17 22:00 05/11/17 21:59 DC 05/10/17 22:00 63 MLS/HR Sodium Bicarbonate 100 meq 1X ONCE 05/08/17 15:30 05/08/17 15:31 DC 05/08/17 16:52 100 MEQ Sodium Chloride 250 ml @ 250 mls/hr 1X ONCE 05/10/17 13:45 05/10/17 14:44 DC Sodium Chloride 90 meq/Potassium Acetate 70 meq/ Potassium Phosphate 18 mmol/ Magnesium Sulfate 12 meq/Calcium Gluconate 10 meq/ Multivitamins 10 ml/Chromium/ Copper/Manganese/ Seleni/Zn 1 ml/ Total Parenteral Nutrition/Amino Acids/Dextrose/ Fat Emulsion Intravenous 1,512 ml @ 63 mls/hr TPN CONT 05/09/17 22:00 05/10/17 21:59 DC 05/09/17 21:39 63 MLS/HR Sodium Chloride 90 meq/Potassium Chloride 50 meq/ Potassium Phosphate 13.6 mmol/Magnesium Sulfate 10 meq/ Calcium Gluconate 10 meq/ Multivitamins 10 ml/Chromium/ Copper/Manganese/ Seleni/Zn 1 ml/ Total Parenteral Nutrition/Amino Acids/Dextrose/ Fat Emulsion Intravenous 1,387.0013 ml @ 3.625 mls/hr TPN CONT 05/09/17 22:00 UNV Sodium Phosphate 20 mmol/Dextrose 256.6667 ml @ 64.167 m... 1X ONCE 05/09/17 17:45 05/09/17 21:44 DC 05/09/17 18:10 64.167 MLS/HR Sodium Phosphate 30 mmol/Dextrose 260 ml @ 65 mls/hr 1X ONCE 05/09/17 17:45 05/09/17 21:44 Cancel Tramadol HCl (Ultram) 50 mg PRN Q6HRS PRN 05/05/17 18:15 05/19/17 01:36 50 MG Vancomycin HCl 1 each 1X ONCE 05/07/17 19:00 05/07/17 19:01 Cancel Vancomycin HCl (Vanco Per Pharmacy) 1 each PRN DAILY PRN 05/05/17 18:00 05/06/17 13:10 DC 05/06/17 12:53 1 EACH Vancomycin HCl 1.75 gm/Dextrose 500 ml @ 250 mls/hr 1X ONCE 05/05/17 18:30 05/05/17 20:29 DC 05/05/17 19:21 250 MLS/HR Vancomycin HCl 1 gm/Dextrose 250 ml @ 250 mls/hr Q24H 05/06/17 19:30 05/06/17 19:30 DC Venlafaxine HCl (Effexor Xr) 75 mg DAILY 05/06/17 09:00 05/18/17 09:02 75 MG Nutrition Consultation Dietary Evaluation: Recommendations by RD: Increase Calorie Intake, Protein supplementation Comments: Will add Boost Plus TID TPN to stop tonight, pt PO intake improving, calorie count in progress Expected Outcomes/Goals: TPN infusion initiated and meeting > 75% est needs within 24 - 48 hrs - met, new goal established 05/14 05/14: Goal - TPN and PO intake to meet > 75% est needs - met, new goal established 05/18 05/18: PO intake to meet > 65% est needs Malnutrition Findings: Food and Nutrition Intake (Mod: <75% est energy req 7days Weight Status: Overweight ZACK LOPEZ MD May 19, 2017 08:54
[2017-05-19 10:37] VITALS: BP 119/65
--- NOTE | 2017-05-19 11:57 | PDOC ---
PROGRESS NOTES Subjective Subjective HPI - Colon ca -s/p chemo 04/27/17 ROS - dyspnea better Objective Objective Vital Signs Date Time Temp Pulse Resp B/P (MAP) Pulse Ox O2 Delivery O2 Flow Rate FiO2 05/19/17 10:37 97.3 58 16 119/65 (83) 100 Nasal Cannula 2.0 97.3 Intake and Output 05/19/17 07:00 Intake Total 1730 ml Output Total 3125 ml Balance -1395 ml Intake Oral 1730 ml Output Urine Total 2125 ml Stool Total 1000 ml Physical Exam General: Alert, Oriented X3, No acute distress HEENT: Atraumatic Neck: No JVD Assessment Assessment Assessment/Plan 1. Colon ca -s/p chemo 04/27/17. No evidence of disease after surgery. No further chemo, I will cancel cycle 12. CT for restaging on 05/15/17 reveals no evidence of disease. CEA normal. 2. Urinary tract infection. Appreciate ID management. 3. Neutropenia and thrombocytopenia from chemo, monitor cbc. WBC 6.4, plt 89. 4. had code on floor - was shocked 6 times and has had some brief torsades since being in ICU, not intubated and ok bp and feels ok. Management per Dr Fernando. 5. Progressive dyspnea, multifactorial secondary to CHF, weakness from her recent chemotherapy and toxicities/ NEW CM EF 25 % 6. Weakness. 7. Anemia, 9.1, monitor I d/w RN and I agree with discharge plans f/u with me in 2-3 weeks.. Comment Review of Relevant I have reviewed the following items armida (where applicable) has been applied. Labs Laboratory Tests Test 05/18/17 06:10 Sodium Level 134 mmol/L (136-145) Potassium Level 3.7 mmol/L (3.5-5.1) Chloride Level 101 mmol/L (98-107) Carbon Dioxide Level 30 mmol/L (21-32) Anion Gap 3 (6-14) Blood Urea Nitrogen 24 mg/dL (7-20) Creatinine 0.9 mg/dL (0.6-1.0) Estimated GFR (Cockcroft-Gault) 61.2 Glucose Level 109 mg/dL (70-99) Calcium Level 7.8 mg/dL (8.5-10.1) Microbiology 05/06/17 Urine Culture - Final, Complete 05/06/17 Urine Culture Result 1 (MARINE) - Final, Complete Medications Current Medications Ceftriaxone Sodium 1 gm/ Dextrose 50 ml @ 100 mls/hr Q24H IV ; Start 05/05/17 at 18:00; Status UNV Vancomycin HCl (Vanco Per Pharmacy) 1 each PRN DAILY PRN MC SEE COMMENTS Last administered on 05/06/17 12:53; Start 05/05/17 at 18:00; Stop 05/06/17 at 13:10 ; Status DC Ceftriaxone Sodium (Rocephin) 1 gm Q24H IVP Last administered on 05/12/17 17: 46; Start 05/05/17 at 18:00; Stop 05/13/17 at 08:09; Status DC Sodium Chloride 1,000 ml @ 75 mls/hr [id number] IV Last administered on 04:20; Start 05/05/17 at 18:15; Stop 05/08/17 at 13:44; Status DC Atorvastatin Calcium (Lipitor) 40 mg DAILY PO Last administered on 05/19/17 08:49; Start 05/06/17 at 09:00 Diazepam (Valium) 5 mg TID PO Last administered on 05/19/17 08:50; Start 05/05/17 at 21:00 Levothyroxine Sodium (Synthroid) 75 mcg DAILYAC PO Last administered on 08:49; Start 05/06/17 at 07:30 Metoprolol Tartrate (Lopressor) 25 mg BID PO Last administered on 05/19/17 08 :51; Start 05/05/17 at 21:00 Pantoprazole Sodium (Protonix) 40 mg DAILY PO Last administered on 05/19/17 08:50; Start 05/06/17 at 09:00 Tramadol HCl (Ultram) 50 mg PRN Q6HRS PRN PO PAIN Last administered on 08:50; Start 05/05/17 at 18:15 Ondansetron HCl (Zofran Odt) 8 mg PRN Q12HRS PRN PO NAUSEA/VOMITING Last administered on 05/11/17 11:52; Start 05/05/17 at 18:30 Venlafaxine HCl (Effexor Xr) 75 mg DAILY PO Last administered on 05/19/17 08: 50; Start 05/06/17 at 09:00 Vancomycin HCl 1.75 gm/Dextrose 500 ml @ 250 mls/hr 1X ONCE IV Last administered on 05/05/17 19:21; Start 05/05/17 at 18:30; Stop 05/05/17 at 20:29 ; Status DC Vancomycin HCl 1 gm/Dextrose 250 ml @ 250 mls/hr Q24H IV ; Start 05/06/17 at 19 :30; Stop 05/06/17 at 19:30; Status DC Vancomycin HCl 1 each 1X ONCE MC ; Start 05/07/17 at 19:00; Stop 05/07/17 at 19:01; Status Cancel Acyclovir (Zovirax) 400 mg [id number] PO Last administered on 05/19/17 08:49; Start 05/06/17 at 09:00 Doxycycline Hyclate (Vibra-Tab) 100 mg BID PO Last administered on 05/11/17 21:01; Start 05/06/17 at 14:00; Stop 05/12/17 at 07:50; Status DC Multi-Ingredient Mouthwash/Gargle (Magic Mouthwash) 10 ml PRN QID PRN PO MOUTH PAIN Last administered on 05/08/17 10:12; Start 05/07/17 at 09:00 Nystatin 5 ml [id number] Last administered on 05/16/17 17:00; Start at 13:00 Potassium Chloride/Dextrose/ Sod Cl 1,000 ml @ 75 mls/hr [id number] IV ; Start at 14:00; Stop 05/08/17 at 16:37; Status DC Potassium Chloride (Klor-Con) 40 meq 1X ONCE PO Last administered on 14:12; Start 05/08/17 at 14:00; Stop 05/08/17 at 14:01; Status DC Amiodarone HCl 900 mg/Dextrose 518 ml @ 34.53 mls/ hr CONT PRN IV SEE I/O RECORD Last administered on 05/09/17 14:28; Start 05/08/17 at 14:45; Stop at 14:29; Status DC Amiodarone HCl 900 mg/Dextrose 518 ml @ 0 mls/hr CONT PRN IV SEE I/O RECORD; Start 05/08/17 at 14:45; Status UNV Sodium Chloride 500 ml @ 500 mls/hr 1X ONCE IV Last administered on 15:30; Start 05/08/17 at 15:30; Stop 05/08/17 at 16:29; Status DC Sodium Bicarbonate 100 meq 1X ONCE IV Last administered on 05/08/17 16:52; Start 05/08/17 at 15:30; Stop 05/08/17 at 15:31; Status DC Magnesium Sulfate/ Dextrose 100 ml @ 100 mls/hr 1X ONCE IV Last administered on 05/08/17 16:00; Start 05/08/17 at 16:00; Stop 05/08/17 at 16:59; Status DC Magnesium Sulfate/ Dextrose 100 ml @ 100 mls/hr 1X ONCE IV Last administered on 05/08/17 16:00; Start 05/08/17 at 16:00; Stop 05/08/17 at 16:59; Status DC Potassium Chloride (Klor-Con) 40 meq [id number] PO ; Start 05/09/17 at 08:00; Stop 05/09/17 at 08:17; Status DC Potassium Chloride (Klor-Con) 40 meq 1X ONCE PO Last administered on 16:53; Start 05/08/17 at 17:00; Stop 05/08/17 at 17:01; Status DC Potassium Chloride/Sodium Chloride 1,000 ml @ 80 mls/hr [id number] IV Last administered on 05/09/17 05:49; Start 05/08/17 at 17:30; Stop 05/09/17 at 18 :27; Status DC Amiodarone HCl 150 mg/Dextrose 103 ml @ 618 mls/hr 1X ONCE IV Last administered on 05/09/17 07:22; Start 05/09/17 at 07:00; Stop 05/09/17 at 07 :09; Status DC Magnesium Sulfate/ Dextrose 50 ml @ 25 mls/hr 1X ONCE IV Last administered on 05/09/17 07:11; Start 05/09/17 at 07:00; Stop 05/09/17 at 08:59; Status DC Potassium Chloride 50 ml @ 25 mls/hr PRN Q2HRS PRN IV K-3.1 TO 3.5 Last administered on 05/09/17 11:44; Start 05/09/17 at 06:45; Stop 05/09/17 at 11 :44; Status DC Potassium Chloride 50 ml @ 25 mls/hr PRN Q2HRS PRN IV K 2.6 TO 3; Start at 06:45 Potassium Chloride 50 ml @ 25 mls/hr PRN Q2HRS PRN IV FOR K<2.6; Start at 08:00 Magnesium Sulfate/ Dextrose 100 ml @ 50 mls/hr PRN DAILY PRN IV MAG<1.8 Last administered on 05/11/17 09:59; Start 05/09/17 at 09:00 Potassium Chloride 50 ml @ 50 mls/hr Q1H IV ; Start 05/09/17 at 08:15; Stop at 10:14; Status Cancel Potassium Chloride 50 ml @ 50 mls/hr DAILY IV Last administered on 05/11/17 08:51; Start 05/10/17 at 09:00; Stop 05/11/17 at 09:59; Status DC Potassium Chloride 50 ml @ 50 mls/hr Q1H IV Last administered on 05/09/17 10: 00; Start 05/09/17 at 09:00; Stop 05/09/17 at 10:59; Status DC Potassium Chloride (Klor-Con) 40 meq 1X ONCE PO ; Start 05/09/17 at 11:00; Stop 05/09/17 at 11:01; Status DC Potassium Chloride/Dextrose/ Sod Cl 1,000 ml @ 75 mls/hr [id number] IV Last administered on 05/10/17 17:58; Start 05/09/17 at 11:00; Stop 05/11/17 at 08 :26; Status DC Calcium Gluconate (Calcium Gluconate) 1,000 mg 1X ONCE IVP Last administered on 05/09/17 14:28; Start 05/09/17 at 14:00; Stop 05/09/17 at 14:01; Status DC Info 1 each PRN DAILY PRN MC SEE COMMENTS Last administered on 05/18/17 13:57 ; Start 05/09/17 at 13:45; Stop 05/18/17 at 13:58; Status DC Amiodarone HCl 150 mg/Dextrose 103 ml @ 618 mls/hr 1X ONCE IV Last administered on 05/09/17 14:28; Start 05/09/17 at 14:00; Stop 05/09/17 at 14 :09; Status DC Amiodarone HCl (Cordarone) 400 mg BID PO Last administered on 05/19/17 08:51 ; Start 05/09/17 at 21:00 Sodium Chloride 90 meq/Potassium Chloride 50 meq/ Potassium Phosphate 13.6 mmol/ Magnesium Sulfate 10 meq/ Calcium Gluconate 10 meq/ Multivitamins 10 ml/Chromium / Copper/Manganese/ Seleni/Zn 1 ml/ Total Parenteral Nutrition/Amino Acids/ Dextrose/ Fat Emulsion Intravenous 1,387.0013 ml @ 3.625 mls/hr TPN CONT IV ; Start 05/09/17 at 22:00; Status UNV Sodium Chloride 90 meq/Potassium Acetate 70 meq/ Potassium Phosphate 18 mmol/ Magnesium Sulfate 12 meq/Calcium Gluconate 10 meq/ Multivitamins 10 ml/Chromium / Copper/Manganese/ Seleni/Zn 1 ml/ Total Parenteral Nutrition/Amino Acids/ Dextrose/ Fat Emulsion Intravenous 1,512 ml @ 63 mls/hr TPN CONT IV Last administered on 05/09/17 21:39; Start 05/09/17 at 22:00; Stop 05/10/17 at 21 :59; Status DC Magnesium Sulfate/ Dextrose 50 ml @ 25 mls/hr 1X ONCE IV ; Start 05/09/17 at 15:15; Stop 05/09/17 at 17:14; Status DC Procainamide HCl 2000 mg/Dextrose 520 ml @ 31.2 mls/hr CONT PRN IV SEE I/O RECORD Last administered on 05/11/17 21:55; Start 05/09/17 at 16:00; Stop at 11:28; Status DC Procainamide HCl 500 mg/Dextrose 55 ml @ 110 mls/hr 1X ONCE IV Last administered on 05/09/17 15:49; Start 05/09/17 at 15:30; Stop 05/09/17 at 15 :59; Status DC Procainamide HCl 2000 mg/Dextrose 520 ml @ 0 mls/hr CONT PRN IV SEE I/O RECORD ; Start 05/09/17 at 15:45; Status UNV Sodium Phosphate 30 mmol/Dextrose 260 ml @ 65 mls/hr 1X ONCE IV ; Start 05/09 at 17:45; Stop 05/09/17 at 21:44; Status Cancel Sodium Phosphate 20 mmol/Dextrose 256.6667 ml @ 64.167 m... 1X ONCE IV Last administered on 05/09/17 18:10; Start 05/09/17 at 17:45; Stop 05/09/17 at 21 :44; Status DC Magnesium Sulfate/ Dextrose 100 ml @ 100 mls/hr 1X ONCE IV Last administered on 05/10/17 01:48; Start 05/10/17 at 02:00; Stop 05/10/17 at 02:59; Status DC Midazolam HCl (Versed) 1 mg PRN Q2HR PRN IV SEDATION; Start 05/10/17 at 02:30 ; Stop 05/16/17 at 11:50; Status DC Midazolam HCl (Versed) 2 mg PRN Q2HR PRN IV SEDATION; Start 05/10/17 at 02:30 ; Stop 05/16/17 at 11:50; Status DC Amiodarone HCl 900 mg/Dextrose 518 ml @ 0 mls/hr CONT PRN IV SEE I/O RECORD; Start 05/10/17 at 03:45; Status UNV Amiodarone HCl 450 mg/Dextrose 259 ml @ 17.26 mls/ hr CONT PRN IV SEE I/O RECORD Last administered on 05/11/17 05:43; Start 05/10/17 at 04:00 Lidocaine HCl/ Dextrose 500 ml @ 0 mls/hr CONT PRN IV SEE I/O RECORD Last administered on 05/12/17 05:40; Start 05/10/17 at 04:00; Stop 05/12/17 at 17 :20; Status DC Lidocaine HCl (Lidocaine HCl 2% Abboject) 100 mg 1X ONCE IV Last administered on 05/10/17 04:13; Start 05/10/17 at 04:30; Stop 05/10/17 at 04:31; Status DC Amiodarone HCl (Cordarone) 300 mg STK-MED ONCE .ROUTE ; Start 05/09/17 at 23:00 ; Stop 05/10/17 at 11:00; Status DC Atropine Sulfate 1 mg STK-MED ONCE .ROUTE ; Start 05/09/17 at 23:00; Stop at 11:00; Status DC Epinephrine HCl (EPINEPHrine SYRINGE) 3 mg STK-MED ONCE .ROUTE ; Start at 23:00; Stop 05/10/17 at 11:00; Status DC Lidocaine HCl (Lidocaine HCl 2% Abboject) 100 mg STK-MED ONCE .ROUTE ; Start at 23:00; Stop 05/10/17 at 11:00; Status DC Magnesium Sulfate/ Dextrose (Magnesium Sulfate PREMIX 1GM) 2 gm STK-MED ONCE IV ; Start 05/09/17 at 23:00; Stop 05/10/17 at 11:00; Status DC Potassium Phosphate 13.6 mmol/Dextrose 104.5333 ml @ 52.267 m... ONCE ONCE IV Last administered on 05/10/17 15:54; Start 05/10/17 at 14:00; Stop at 15:59; Status DC Sodium Acetate 90 meq/Potassium Chloride 70 meq/ Potassium Phosphate 20.4 mmol/ Magnesium Sulfate 18 meq/ Calcium Gluconate 10 meq/ Multivitamins 10 ml/Chromium / Copper/Manganese/ Seleni/Zn 1 ml/ Total Parenteral Nutrition/Amino Acids/ Dextrose/ Fat Emulsion Intravenous 1,512 ml @ 63 mls/hr TPN CONT IV Last administered on 05/10/17 22:00; Start 05/10/17 at 22:00; Stop 05/11/17 at 21 :59; Status DC Lidocaine/Sodium Bicarbonate (Buffered Lidocaine 1%) 20 ml STK-MED ONCE IJ ; Start 05/10/17 at 13:45; Stop 05/10/17 at 13:46; Status DC Lidocaine/Sodium Bicarbonate (Buffered Lidocaine 1%) 3 ml 1X ONCE IJ Last administered on 05/10/17 13:45; Start 05/10/17 at 13:45; Stop 05/10/17 at 13 :57; Status DC Sodium Chloride 250 ml @ 250 mls/hr 1X ONCE IV ; Start 05/10/17 at 13:45; Stop 05/10/17 at 14:44; Status DC Albuterol Sulfate (Ventolin Neb Soln) 2.5 mg 1X ONCE NEB Last administered on 05/10/17 19:54; Start 05/10/17 at 20:00; Stop 05/10/17 at 20:01; Status DC Furosemide (Lasix) 40 mg 1X ONCE IVP Last administered on 05/10/17 21:22; Start 05/10/17 at 21:30; Stop 05/10/17 at 21:31; Status DC Dobutamine HCl/ Dextrose 250 ml @ 0 mls/hr CONT PRN IV SEE I/O RECORD Last administered on 05/13/17 20:58; Start 05/10/17 at 21:15 Sodium Acetate 120 meq/Potassium Chloride 70 meq/ Potassium Phosphate 27.2 mmol/ Magnesium Sulfate 22 meq/ Calcium Gluconate 5 meq/ Multivitamins 10 ml/Chromium / Copper/Manganese/ Seleni/Zn 1 ml/ Total Parenteral Nutrition/Amino Acids/ Dextrose/ Fat Emulsion Intravenous 1,512 ml @ 63 mls/hr TPN CONT IV ; Start 05/11/17 at 22:00; Stop 05/12/17 at 21:59; Status Cancel Potassium Phosphate 13.6 mmol/Dextrose 104.5333 ml @ 52.267 m... ONCE ONCE IV Last administered on 05/11/17 13:24; Start 05/11/17 at 13:00; Stop at 14:59; Status DC Sodium Acetate 120 meq/Potassium Chloride 70 meq/ Potassium Phosphate 25 mmol/ Magnesium Sulfate 22 meq/Calcium Gluconate 5 meq/ Multivitamins 10 ml/Chromium/ Copper/Manganese/ Seleni/Zn 1 ml/ Total Parenteral Nutrition/Amino Acids/ Dextrose/ Fat Emulsion Intravenous 1,512 ml @ 63 mls/hr TPN CONT IV Last administered on 05/11/17 21:56; Start 05/11/17 at 22:00; Stop 05/12/17 at 21 :59; Status DC Furosemide (Lasix) 40 mg DAILY IVP Last administered on 05/19/17 08:51; Start 05/12/17 at 09:00 Sodium Acetate 120 meq/Potassium Chloride 70 meq/ Potassium Phosphate 25 mmol/ Magnesium Sulfate 22 meq/Calcium Gluconate 5 meq/ Multivitamins 10 ml/Chromium/ Copper/Manganese/ Seleni/Zn 1 ml/ Total Parenteral Nutrition/Amino Acids/ Dextrose/ Fat Emulsion Intravenous 1,512 ml @ 63 mls/hr TPN CONT IV Last administered on 05/12/17 22:50; Start 05/12/17 at 22:00; Stop 05/13/17 at 21 :59; Status DC Magnesium Sulfate/ Dextrose (Magnesium Sulfate PREMIX 1GM) 2 gm STK-MED ONCE IV ; Start 05/05/17 at 12:00; Stop 05/12/17 at 17:24; Status DC Sodium Acetate 120 meq/Potassium Chloride 70 meq/ Potassium Phosphate 25 mmol/ Magnesium Sulfate 22 meq/Calcium Gluconate 5 meq/ Multivitamins 10 ml/Chromium/ Copper/Manganese/ Seleni/Zn 1 ml/ Sodium Chloride 40 meq/Total Parenteral Nutrition/Amino Acids/Dextrose/ Fat Emulsion Intravenous 1,512 ml @ 63 mls/hr TPN CONT IV Last administered on 05/13/17 23:09; Start 05/13/17 at 22:00; Stop 05/14/17 at 21:59; Status DC Iohexol (Omnipaque 240 Mg/ml) 30 ml 1X ONCE PO ; Start 05/14/17 at 09:15; Stop 05/14/17 at 09:16; Status DC Iohexol (Omnipaque 300 Mg/ml) 75 ml 1X ONCE IV ; Start 05/14/17 at 09:15; Stop 05/14/17 at 09:16; Status DC Info (Do NOT chart on this entry -- for MONITORING) 1 each PRN DAILY PRN MC SEE COMMENTS; Start 05/14/17 at 09:15; Stop 05/15/17 at 13:59; Status DC Heparin Sodium/ Sodium Chloride 500 ml @ As Directed STK-MED ONCE .ROUTE ; Start 05/14/17 at 12:16; Stop 05/14/17 at 12:17; Status DC Lidocaine HCl 20 ml STK-MED ONCE .ROUTE ; Start 05/14/17 at 12:17; Stop at 12:18; Status DC Iohexol (Omnipaque 300 Mg/ml) 100 ml STK-MED ONCE .ROUTE ; Start 05/14/17 at 12 :17; Stop 05/14/17 at 12:18; Status DC Sodium Acetate 120 meq/Potassium Chloride 70 meq/ Potassium Phosphate 18 mmol/ Magnesium Sulfate 22 meq/Calcium Gluconate 5 meq/ Multivitamins 10 ml/Chromium/ Copper/Manganese/ Seleni/Zn 1 ml/ Sodium Chloride 40 meq/Total Parenteral Nutrition/Amino Acids/Dextrose/ Fat Emulsion Intravenous 1,512 ml @ 63 mls/hr TPN CONT IV Last administered on 05/14/17 20:42; Start 05/14/17 at 22:00; Stop 05/15/17 at 21:59; Status DC Fentanyl Citrate (Fentanyl 2ml Vial) 100 mcg STK-MED ONCE .ROUTE ; Start at 12:56; Stop 05/14/17 at 12:57; Status DC Midazolam HCl (Versed) 2 mg STK-MED ONCE .ROUTE ; Start 05/14/17 at 12:56; Stop 05/14/17 at 12:57; Status DC Heparin Sodium/ Sodium Chloride 1,000 unit 1X ONCE IART Last administered on 05/14/17 13:30; Start 05/14/17 at 13:30; Stop 05/14/17 at 13:37; Status DC Midazolam HCl (Versed) 1 mg 1X ONCE IV Last administered on 05/14/17 13:30; Start 05/14/17 at 13:30; Stop 05/14/17 at 13:37; Status DC Iohexol (Omnipaque 300 Mg/ml) 54 ml 1X ONCE IART Last administered on 13:30; Start 05/14/17 at 13:30; Stop 05/14/17 at 13:37; Status DC Lidocaine HCl 20 ml 1X ONCE IJ Last administered on 05/14/17 13:30; Start 05/14/17 at 13:30; Stop 05/14/17 at 13:37; Status DC Iohexol (Omnipaque 240 Mg/ml) 50 ml 1X ONCE PO Last administered on 08:00; Start 05/15/17 at 08:00; Stop 05/15/17 at 08:10; Status DC Info (Do NOT chart on this entry -- for MONITORING) 1 each PRN DAILY PRN MC SEE COMMENTS; Start 05/15/17 at 08:15; Stop 05/15/17 at 13:59; Status DC Iohexol (Omnipaque 300 Mg/ml) 75 ml 1X ONCE IV Last administered on 09:34; Start 05/15/17 at 09:30; Stop 05/15/17 at 09:31; Status DC Info (Do NOT chart on this entry -- for MONITORING) 1 each PRN DAILY PRN MC SEE COMMENTS; Start 05/15/17 at 09:30; Stop 05/17/17 at 09:29; Status DC Ceftriaxone Sodium 1 gm/ Dextrose 50 ml @ 100 mls/hr Q24H IV ; Start 05/15/17 at 11:00; Stop 05/15/17 at 11:01; Status DC Sodium Acetate 120 meq/Potassium Chloride 70 meq/ Potassium Phosphate 18 mmol/ Magnesium Sulfate 22 meq/Calcium Gluconate 5 meq/ Multivitamins 10 ml/Chromium/ Copper/Manganese/ Seleni/Zn 1 ml/ Sodium Chloride 40 meq/Total Parenteral Nutrition/Amino Acids/Dextrose/ Fat Emulsion Intravenous 1,512 ml @ 63 mls/hr TPN CONT IV Last administered on 05/15/17 21:05; Start 05/15/17 at 22:00; Stop 05/16/17 at 21:59; Status DC Sodium Acetate 120 meq/Potassium Chloride 70 meq/ Potassium Phosphate 18 mmol/ Magnesium Sulfate 22 meq/Calcium Gluconate 5 meq/ Multivitamins 10 ml/Chromium/ Copper/Manganese/ Seleni/Zn 1 ml/ Sodium Chloride 40 meq/Total Parenteral Nutrition/Amino Acids/Dextrose/ Fat Emulsion Intravenous 1,320 ml @ 55 mls/hr TPN CONT IV Last administered on 05/16/17 21:47; Start 05/16/17 at 22:00; Stop 05/17/17 at 21:59; Status DC Sodium Acetate 100 meq/Potassium Chloride 70 meq/ Potassium Phosphate 13.6 mmol/ Magnesium Sulfate 15 meq/ Calcium Gluconate 5 meq/ Multivitamins 10 ml/Chromium / Copper/Manganese/ Seleni/Zn 1 ml/ Sodium Chloride 80 meq/Total Parenteral Nutrition/Amino Acids/Dextrose/ Fat Emuls... 1,320 ml @ 55 mls/hr TPN CONT IV Last administered on 05/17/17 21:20; Start 05/17/17 at 22:00; Stop at 21:59; Status DC Active Scripts Active Reported Levofloxacin 500 Mg Tablet 500 Mg PO DAILY Tramadol Hcl 50 Mg Tablet 50 Mg PO Q6H PRN Ondansetron Hcl 4 Mg Tablet 8 Mg PO BID PRN [place] 5-325 Tablet (Acetaminophen/Hydrocodone Bitart) 1 Each Tablet 1-2 Tab PO Q4HRS PRN Atorvastatin Calcium 40 Mg Tablet 1 Tab PO DAILY Metoprolol Tartrate 25 Mg Tablet 1 Tab PO BID Pantoprazole Sodium 40 Mg Tablet.dr 1 Tab PO DAILY Diazepam 5 Mg Tablet 5 Mg PO TID Venlafaxine Hcl Er (Venlafaxine Hcl) 75 Mg Cap.er.24h 75 Mg PO DAILY Synthroid (Levothyroxine Sodium) 75 Mcg Tablet 75 Mcg PO DAILYAC Vitals/I & O Vital Sign - Last 24 Hours 05/18/17 05/18/17 05/18/17 05/18/17 14:51 19:28 20:00 21:11 Temp 97.8 97.9 97.8 97.9 Pulse 58 66 Resp 18 18 B/P (MAP) 96/58 (71) 87/52 (64) 102/54 (70) Pulse Ox 98 98 O2 Delivery Nasal Cannula Nasal Cannula Nasal Cannula O2 Flow Rate 2.0 2.0 2.0 05/18/17 05/18/17 05/18/17 05/19/17 22:21 22:22 23:31 01:36 Temp 97.7 97.7 Pulse 67 66 67 Resp 18 20 B/P (MAP) 101/49 101/49 101/49 (66) Pulse Ox 95 O2 Delivery Nasal Cannula O2 Flow Rate 2.0 05/19/17 05/19/17 05/19/17 05/19/17 02:13 02:36 07:45 07:55 Temp 97.3 98.5 97.3 98.5 Pulse 58 61 Resp 18 20 18 B/P (MAP) 100/54 (69) 93/47 (62) Pulse Ox 93 98 O2 Delivery Nasal Cannula Nasal Cannula Nasal Cannula O2 Flow Rate 2.0 2.0 2.0 05/19/17 05/19/17 05/19/17 05/19/17 08:50 08:51 08:51 09:50 Pulse 62 62 B/P (MAP) 93/47 93/47 O2 Delivery Nasal Cannula Nasal Cannula O2 Flow Rate 2.0 2.0 05/19/17 10:37 Temp 97.3 97.3 Pulse 58 Resp 16 B/P (MAP) 119/65 (83) Pulse Ox 100 O2 Delivery Nasal Cannula O2 Flow Rate 2.0 Intake and Output 05/18/17 05/18/17 05/19/17 15:00 23:00 07:00 Intake Total 325 ml 1105 ml 300 ml Output Total 725 ml 1550 ml 850 ml Balance -400 ml -445 ml -550 ml Nutrition Consultation Dietary Evaluation: Recommendations by RD: Increase Calorie Intake, Protein supplementation Comments: Will add Boost Plus TID TPN to stop tonight, pt PO intake improving, calorie count in progress Expected Outcomes/Goals: TPN infusion initiated and meeting > 75% est needs within 24 - 48 hrs - met, new goal established 05/14 05/14: Goal - TPN and PO intake to meet > 75% est needs - met, new goal established 05/18 05/18: PO intake to meet > 65% est needs Malnutrition Findings: Food and Nutrition Intake (Mod: <75% est energy req 7days Weight Status: Overweight DANIEL MORALEZ MD May 19, 2017 11:57
[2017-05-19] MEDS ORDERED: AMIO200T2 PO (13:13)
[2017-05-19] MEDS ORDERED: POTASSIUM CHLO10 MEQ PO (13:27)
[2017-05-19] MEDS ORDERED: FURO40TA4 PO (13:27)
[2017-05-19] MEDS ORDERED: HEPARIN PF 500 UNIT/5 ML DISP.SYRIN. IV ONE (13:30)
--- NOTE | 2017-05-19 18:30 | DS ---
DATE OF DISCHARGE: CHIEF COMPLAINT AND HISTORY OF PRESENT ILLNESS: This 72-year-old white female who was admitted with profound weakness and cough felt to have bronchitis in the middle of chemotherapy for carcinoma of the colon and had a significant neutropenia, thrombocytopenia on admission. SUMMARY OF STAY: The patient was admitted, what follows is a brief discussion on the long complicated hospitalization. The patient's blood counts eventually came back, she got farther away from the chemotherapy, she was treated for pneumonia infection throughout the stay. She developed acute kidney injury, which resolved during the stay. She was found to have moderate malnutrition and pyuria, which was treated. In addition, she did have mucositis, which was covered with antivirals and improved during the stay. She did not have a code during the stay with V-tach and was shocked on multiple occasions. She was placed in the ICU, was brought back and following this, was on multiple antiarrhythmics. Eventually, she fell down on amiodarone after initially this was not controlling it. She initially had an echocardiogram showing cardiomyopathy with an ejection fraction of 27%. She later in the stay had a heart catheterization to rule out ischemic etiology with no coronary artery disease found and ejection fraction of 40% suggesting it was improving and was felt by Cardiology that initial decrease was likely related to severe illness and acidosis. She was maintained on amiodarone and will be at 400 b.i.d. for a week before ____ to 200 mg daily at the long term. She took very little food through the stay and required TPN. She was eating approximately 50% of her meals by the time of transfer, she is still quite weak and will need extensive therapy and was transferred to SNF on the day of discharge. DISPOSITION: The patient is discharged to SNF. DIET: As tolerated. ACTIVITY: As tolerated. PT and OT to evaluate. We will follow her there. DISCHARGE MEDICATIONS: Listed on the med rec and have been addressed. ZACK LOPEZ MD DR: JAYDON/dione JOB#: [id number] / [id number]
== END 2017-05-19 15:35 | DRG 177 ==
LOC: 5 NORTH 17:12 → 1 WEST ICU 05-08 14:40 → 2 NORTH 05-14 17:00
PROVIDERS: ADMIT Family Medicine; ATTEND Family Medicine
PROC: 5A12012 Performance of Cardiac Output, Single, Manual (ICD-10-PCS; 2017-05-08)
PROC: 05HM33Z Insertion of Infusion Device into Right Internal Jugular Vein, Percutaneous Approach (ICD-10-PCS; 2017-05-10)
PROC: B543ZZA Ultrasonography of Right Jugular Veins, Guidance (ICD-10-PCS; 2017-05-10)
PROC: 3E0436Z Introduction of Nutritional Substance into Central Vein, Percutaneous Approach (ICD-10-PCS; 2017-05-10)
PROC: 5A09357 Assistance with Respiratory Ventilation, Less than 24 Consecutive Hours, Continuous Positive Airway Pressure (ICD-10-PCS; 2017-05-10)
PROC: B2151ZZ Fluoroscopy of Left Heart using Low Osmolar Contrast (ICD-10-PCS; principal; 2017-05-14)
PROC: B2111ZZ Fluoroscopy of Multiple Coronary Arteries using Low Osmolar Contrast (ICD-10-PCS; 2017-05-14)
PROC: 4A023N7 Measurement of Cardiac Sampling and Pressure, Left Heart, Percutaneous Approach (ICD-10-PCS; 2017-05-14)
DX: J69.0 Pneumonitis due to inhalation of food and vomit (principal); I49.01 Ventricular fibrillation; N17.9 Acute kidney failure, unspecified; I47.2 Ventricular tachycardia; E44.0 Moderate protein-calorie malnutrition; D64.81 Anemia due to antineoplastic chemotherapy; D70.1 Agranulocytosis secondary to cancer chemotherapy; E87.2 Acidosis; C78.6 Secondary malignant neoplasm of retroperitoneum and peritoneum; D69.59 Other secondary thrombocytopenia; C18.9 Malignant neoplasm of colon, unspecified; N39.0 Urinary tract infection, site not specified; I50.9 Heart failure, unspecified; E86.0 Dehydration; K21.9 Gastro-esophageal reflux disease without esophagitis; E03.9 Hypothyroidism, unspecified; E78.5 Hyperlipidemia, unspecified; G89.29 Other chronic pain; M19.90 Unspecified osteoarthritis, unspecified site; T45.1X5A Adverse effect of antineoplastic and immunosuppressive drugs, initial encounter; F41.9 Anxiety disorder, unspecified; K12.30 Oral mucositis (ulcerative), unspecified; E87.6 Hypokalemia; J20.9 Acute bronchitis, unspecified; I11.0 Hypertensive heart disease with heart failure; Z68.28 Body mass index [BMI] 28.0-28.9, adult; Z90.49 Acquired absence of other specified parts of digestive tract; Z88.5 Allergy status to narcotic agent; Z93.3 Colostomy status; J15.6 Pneumonia due to other Gram-negative bacteria
CPT/HCPCS: 36415; 36556; 36600; 71010; 71260; 74177; 76937; 80048; 80053; 81001; 82805; 83735; 84100; 84443; 84478; 85007; 85025; 85027; 85610; 87086; 87641; 93005; 93306; 93458; 94640; 94660; 99152; 99153; C1769; C1771; C1892; G0269; J0171; J0282; J0461; J0610; J0696; J1250; J1644; J1940; J2250; J2690; J3370; J3475; J3480; J7030; J7040; J7060; J7613; Q0162; Q9966; Q9967; 97110; 97530; 97535; J2001

== ENCOUNTER → 2017-09-22 | Outpatient (CLI) | payer MEDICARE ==
[~2017-09-22] MED LIST changes: -ATOR40TA59 PO; -BYSTOLIC5 MG PO; +CONTRAST GIVEN MC; -CRESTOR10 MG PO; -DIAZ5TAB4 PO; -HYDR-971 PO; -IBUP200C9 PO; -LEVO75TA PO; -MAGNESIUM SULFATE PREMIX 1 GM/100 ML BAG. IV ONE; -METO-313 PO; -METO25TA4 PO; -PANT40TA5 PO; -VENL75CA6 PO
[2017-09-22] MEDS: IOHEXOL 240 MG/ML 50ML VIAL. PO (09:30)
[2017-09-22] MEDS: IOHEXOL 300 MG/ML 100ML VIAL. IV (10:51)
== END | disposition home or self-care (01) ==
LOC: CT 09:14
DX: C18.9 Malignant neoplasm of colon, unspecified (principal); K76.9 Liver disease, unspecified; N26.1 Atrophy of kidney (terminal); I70.0 Atherosclerosis of aorta; J98.11 Atelectasis; I25.10 Atherosclerotic heart disease of native coronary artery without angina pectoris; Z90.710 Acquired absence of both cervix and uterus
CPT/HCPCS: 71260; 74177; Q9966; Q9967

== ENCOUNTER → 2017-10-21 | Outpatient (CLI) | payer MEDICARE | END | disposition home or self-care (01) | LOC: PETSC 11:23 | DX: C18.7 Malignant neoplasm of sigmoid colon (principal); I11.0 Hypertensive heart disease with heart failure; I50.9 Heart failure, unspecified; E03.9 Hypothyroidism, unspecified; Z93.3 Colostomy status; Z85.038 Personal history of other malignant neoplasm of large intestine | CPT/HCPCS: 78815; A9552 ==

== ENCOUNTER → 2017-11-05 | Day surgery (SDC) | payer MEDICARE ==
[~2017-11-05] MED LIST changes: -CONTRAST GIVEN MC; +LIDOCAINE 1%/EPI 1:100,000 30 ML VIAL. IJ
== END | disposition home or self-care (01) ==
LOC: SURG 11:33
DX: Z45.2 Encounter for adjustment and management of vascular access device (principal); I10 Essential (primary) hypertension; E03.9 Hypothyroidism, unspecified; F41.9 Anxiety disorder, unspecified; K21.9 Gastro-esophageal reflux disease without esophagitis; Z85.038 Personal history of other malignant neoplasm of large intestine; Z93.3 Colostomy status; Z98.890 Other specified postprocedural states; Z90.49 Acquired absence of other specified parts of digestive tract; Z90.710 Acquired absence of both cervix and uterus; Z90.722 Acquired absence of ovaries, bilateral; Z90.79 Acquired absence of other genital organ(s); Z88.5 Allergy status to narcotic agent; I25.10 Atherosclerotic heart disease of native coronary artery without angina pectoris; E78.00 Pure hypercholesterolemia, unspecified; Z86.010 Personal history of colon polyps; E66.9 Obesity, unspecified; F32.9 Major depressive disorder, single episode, unspecified; Z72.89 Other problems related to lifestyle; Z82.49 Family history of ischemic heart disease and other diseases of the circulatory system; Z79.899 Other long term (current) drug therapy; Z95.828 Presence of other vascular implants and grafts
CPT/HCPCS: 36590; 88300; J3490

== ENCOUNTER → 2018-02-18 | Outpatient (CLI) | payer MEDICARE ==
[2017-11-05 11:50] VITALS: BP 129/66
[~2018-02-18] MED LIST changes: +AMIO200T4 PO; +ATOR40TA59 PO; +BYSTOLIC5 MG PO; +CONTRAST GIVEN. MC PRN; +CRESTOR10 MG PO; +DIAZ5TAB4 PO; +FURO40TA4 PO; +HYDR-971 PO; +IBUP200C9 PO; +IOHEXOL 240 MG/ML 50ML VIAL. PO ONE; +IOHEXOL 300 MG/ML 100ML VIAL. IV ONE; +LEVO500T8 PO; +LEVO75TA PO; -LIDOCAINE 1%/EPI 1:100,000 30 ML VIAL. IJ; +METO-313 PO; +METO25TA4 PO; +ONDA4TAB11 PO; +PANT40TA5 PO; +POTA10TA12 PO; +TRAM50TA PO; +VENL75CA6 PO
== END | disposition home or self-care (01) ==
LOC: CT 09:10
PROVIDERS: ATTEND Internal Medicine Hematology & Oncology
DX: Z53.8 Procedure and treatment not carried out for other reasons (principal); C18.7 Malignant neoplasm of sigmoid colon
CPT/HCPCS: Q9966; Q9967

== ENCOUNTER 2018-02-24 07:10 | Outpatient (CLI) | payer MEDICARE ==
[~2018-02-24] VITALS: Ht 154.9 cm; Wt 70.3 kg
[~2018-02-24 07:10] MED LIST changes: -CONTRAST GIVEN. MC PRN; -IOHEXOL 240 MG/ML 50ML VIAL. PO ONE; -IOHEXOL 300 MG/ML 100ML VIAL. IV ONE
[2018-02-24] MEDS: SODIUM BICARBONATE VIAL 150 MEQ in IV STERILE WATER 1,000 ML IV ONE (07:45)
[2018-02-24 07:54] VITALS: BP 158/68
[2018-02-24] MEDS ORDERED: IOHEXOL 240 MG/ML 50ML VIAL. PO ONE (09:30)
[2018-02-24] MEDS ORDERED: IOHEXOL 300 MG/ML 100ML VIAL. IV ONE (09:30)
--- NOTE | 2018-02-24 11:52 | RAD ---
CT CHEST ABD PELVIS W/CONTRAST Indication: CANCER OF SIGMOID COLON Technique: Postcontrast CT imaging was performed of the chest, abdomen, pelvis, multiplanar reconstruction images submitted. One or more of the following individualized dose reduction techniques were utilized for this examination: 1. Automated exposure control 2. Adjustment of the mA and/or kV according to patient size 3. Use of iterative reconstruction technique. Contrast: 60 cc Omnipaque 300 Comparison: September 22, 2017 CHEST: Findings: There is no new lymphadenopathy chest are new suspicious pulmonary nodularity. There is some linear likely fibrotic change right lower lobe left upper lobe as seen previously. There is no new pleural or pericardial effusion or pneumothorax. There is some coronary calcification. Thoracic aortic caliber is within normal limits without intraluminal flap. There is some similar sclerosis of the sternum. Thoracic vertebral body stature and AP alignment are maintained. IMPRESSION: 1. There is no new suspicious pulmonary nodularity or lymphadenopathy. There is similar nonspecific sclerosis of the sternum. 2. There is some coronary calcification. Abdomen and pelvis: FINDINGS: There is stable 1.5 cm hypodense lesion of the left lobe of the liver, another tiny focus about 0.5 cm also similar. No new liver lesion is identified. There is no new abnormality of the pancreas or spleen. There is no new adrenal nodularity. Gallbladder is present without obvious intraluminal abnormality by CT. There is again atrophic right kidney, new moderate right hydronephrosis, mild right hydroureter. There is increased distention of the urinary bladder. There is new mild left hydronephrosis. Both kidneys enhance. There is again left ostomy. Bowel is not dilated. There is no new free air or free fluid. No new lymphadenopathy is identified. There is multilevel lumbar facet degenerative change and degenerative disc disease. There is least moderate spinal stenosis L3-4 also lateral recess stenosis bilaterally at L4-5. There is severe narrowing of the right L4-5 and L2-3 neural foramina, to lesser degree at L3-4. There are stable small inguinal nodes. IMPRESSION: 1. There are stable hypodense foci of the liver, no new liver lesion. There is no new lymphadenopathy. 2. There is new hydronephrosis bilaterally greater on the right. There is increased distention of the urinary bladder. There is again atrophy of the right kidney. 3. There is at least moderate spinal stenosis L3-4, also lateral recess stenosis L4-5. There is multilevel lumbar neural foramina compromise greater on the right. Electronically signed by: Abebe Christiansen MD (02/24/2018 11:50 AM) [id number]
== END 2018-02-24 13:33 | disposition home or self-care (01) ==
LOC: CT 07:10
PROVIDERS: ATTEND Internal Medicine Hematology & Oncology
DX: M48.061 Spinal stenosis, lumbar region without neurogenic claudication (principal); N13.39 Other hydronephrosis; M51.36 Other intervertebral disc degeneration, lumbar region; I25.10 Atherosclerotic heart disease of native coronary artery without angina pectoris; K21.9 Gastro-esophageal reflux disease without esophagitis; I11.0 Hypertensive heart disease with heart failure; I50.9 Heart failure, unspecified; E03.9 Hypothyroidism, unspecified; D64.81 Anemia due to antineoplastic chemotherapy; E78.5 Hyperlipidemia, unspecified; E78.00 Pure hypercholesterolemia, unspecified; Z95.828 Presence of other vascular implants and grafts; Z85.53 Personal history of malignant neoplasm of renal pelvis; Z85.038 Personal history of other malignant neoplasm of large intestine; Z86.010 Personal history of colon polyps; Z90.722 Acquired absence of ovaries, bilateral; Z90.710 Acquired absence of both cervix and uterus; Z68.28 Body mass index [BMI] 28.0-28.9, adult; Z82.49 Family history of ischemic heart disease and other diseases of the circulatory system
CPT/HCPCS: 71260; 74177; Q9966; Q9967